=== PATIENT | male | born 1990 | race African-American/Black ===

== ENCOUNTER 2018-05-09 22:49 | Inpatient (IN) | payer SELFPAY ==
[~2018-05-09] VITALS: Ht 175.3 cm; Wt 97.7 kg
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
[2018-05-09 23:40] LABS: BASO % 0.7 %; BASO ABS # 0.06 K/uL (0-0.2); EOS % 1.4 %; EOS ABS # 0.13 K/uL (0-0.5); HEMATOCRIT 38.8 % (42-52); HEMOGLOBIN 13.2 g/dL (14.0-18.0); IG# 0.01 K/uL (0.00-0.02); LYMPH % 18.7 %; LYMPH ABS # 1.71 K/uL (1.2-3.4); MEAN CELL VOLUME 87.4 fL (80-100); MEAN CORPUSCULAR HEMOGLOBIN 29.7 pg (25-34); MEAN PLATELET VOLUME 10.8 fL (7.4-10.4); MONO % 4.1 %; MONO ABS # 0.38 K/uL (0.11-0.59); NEUT ABS # 6.87 K/uL (1.4-6.5); PLATELET COUNT 321 K/uL (130-400); RED CELL DISTRIBUTION WIDTH CV 14.1 % (11.5-14.5); RED CELL DISTRIBUTION WIDTH SD 45.2 fL (36.4-46.3); WHITE BLOOD COUNT 9.16 K/uL (4.8-10.8)
[2018-05-09 23:59] LABS: ALBUMIN 3.6 gm/dl (3.4-5.0); ALKALINE PHOSPHATASE 87 U/L (45-117); ALT/SGPT 38 U/L (12-78); AST/SGOT 33 U/L (15-37); BLOOD UREA NITROGEN 16 mg/dl (7-18); CALCIUM 8.1 mg/dl (8.5-10.1); CARBON DIOXIDE 23 mmol/L (21-32); CREATININE 1.13 mg/dl (0.60-1.40); GLUCOSE 101 mg/dl (70-99); POTASSIUM 3.6 mmol/L (3.5-5.1); SODIUM 142 mmol/L (136-145); TOTAL PROTEIN 7.5 gm/dl (6.4-8.2)
[2018-05-10] VITALS (8 sets, daily range): BP systolic 102–119; BP diastolic 55–79; PULSE 64–75; TEMP 36.3–37.1; O2SAT 95–100; Ht 175.3 cm; Wt 97.7 kg
[2018-05-10] MEDS ORDERED: ACETAMINOPHEN 325 MG TAB PO PRN (01:30)
[2018-05-10] MEDS ORDERED: NITROGLYCERIN 0.4 MG SL PER TAB CHARGE SL PRN (01:30)
[2018-05-10] MEDS ORDERED: ONDANSETRON INJ 2 MG/ML 2 ML VIAL IV PRN (01:30)
[2018-05-10] MEDS: SODIUM CHLORIDE 0.9% 1000ML 1,000 ML IV SCH ×2 (02:04→10:00)
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
[2018-05-10 07:46] LABS: BASO % 0.5 %; BASO ABS # 0.05 K/uL (0-0.2); HEMATOCRIT 36.9 % (42-52); HEMOGLOBIN 12.3 g/dL (14.0-18.0); IG# 0.01 K/uL (0.00-0.02); LYMPH % 26.8 %; LYMPH ABS # 2.68 K/uL (1.2-3.4); MEAN CELL VOLUME 88.5 fL (80-100); MEAN CORPUSCULAR HEMOGLOBIN 29.5 pg (25-34); MEAN CORPUSCULAR HGB CONC 33.3 g/dl (32-36); MEAN PLATELET VOLUME 10.8 fL (7.4-10.4); MONO % 6.5 %; MONO ABS # 0.65 K/uL (0.11-0.59); NEUT % 64.1 %; NEUT ABS # 6.42 K/uL (1.4-6.5); PLATELET COUNT 317 K/uL (130-400); RED CELL DISTRIBUTION WIDTH CV 14.5 % (11.5-14.5); RED CELL DISTRIBUTION WIDTH SD 47.1 fL (36.4-46.3); WHITE BLOOD COUNT 10.01 K/uL (4.8-10.8)
[2018-05-10 08:19] LABS: ALBUMIN 3.3 gm/dl (3.4-5.0); CALCIUM 8.1 mg/dl (8.5-10.1); CREATININE 0.98 mg/dl (0.60-1.40); POTASSIUM 3.8 mmol/L (3.5-5.1); TOTAL PROTEIN 7.2 gm/dl (6.4-8.2)
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
[2018-05-10] MEDS ORDERED: CLOZ100T PO (12:57)
[2018-05-10] MEDS ORDERED: SERTRALINE HCL 50 MG TAB PO ONE (12:58)
[2018-05-10] MEDS ORDERED: ZLF50 PO (12:58)
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
--- NOTE | 2018-05-10 19:41 | Progress Note ---
Progress Note Date of Service May 10, 2018. Progress Note Patient admitted earlier today please see H&P for further details There is a 27-year-old male with past medical history of depression suicidal ideation Admitted with intentional multiple drug overdose Patient reported to take unknown amount of Prozac NyQuil and alcohol In the ER patient was found hemodynamically stable Drowsy, wakes up to voice Per poison Control center, recommend supportive care supportive care with IV fluids telemetry monitoring for any arrhythmia QTC prolongation Suicide watch Psych eval requested Patient will need to be transferred to inpatient psych unit when clinically stable
[2018-05-10] MEDS ORDERED: CLOZAPINE 100 MG TAB PO SCH (21:00)
[2018-05-11] MEDS ORDERED: RAPID SEQUENCE INDUCTION BAG ONE (00:09)
[2018-05-11 04:15] VITALS: BP 124/65; PULSE 60; TEMP 36.8; O2SAT 99
[2018-05-11 07:08] VITALS: BP 111/70; PULSE 52; TEMP 36.5; O2SAT 99
[2018-05-11 07:08] LABS: MEAN CORPUSCULAR HGB CONC 33.2 g/dl (32-36); MEAN PLATELET VOLUME 10.9 fL (7.4-10.4); PLATELET COUNT 302 K/uL (130-400)
[2018-05-11 07:35] LABS: CALCIUM 8.4 mg/dl (8.5-10.1); CREATININE 1.1 mg/dl (0.60-1.40); POTASSIUM 3.9 mmol/L (3.5-5.1)
[2018-05-11 08:04] LABS: HEMATOCRIT 39.2 % (42-52); MEAN CELL VOLUME 89.7 fL (80-100); MEAN CORPUSCULAR HEMOGLOBIN 29.7 pg (25-34); RED CELL DISTRIBUTION WIDTH CV 14.7 % (11.5-14.5); RED CELL DISTRIBUTION WIDTH SD 48.2 fL (36.4-46.3); WHITE BLOOD COUNT 9.21 K/uL (4.8-10.8)
[2018-05-11] MEDS ORDERED: SERTRALINE HCL 50 MG TAB PO SCH (09:00)
--- NOTE | 2018-05-11 10:09 | DIAGNOSTIC IMAGING REPORT ---
CHEST 2 VIEWS ROUTINE HISTORY: 27 years-old Male cough acute cough COMPARISON: None available TECHNIQUE: PA and lateral views of the chest FINDINGS: Cardiomediastinal and hilar silhouettes are within normal limits. No pneumothorax, pleural effusion, focal airspace consolidation or overt pulmonary edema. The bones of the chest appear grossly intact. IMPRESSION: No acute process. The above report was generated using voice recognition software. It may contain grammatical, syntax or spelling errors. Electronically signed by: Blair Bragg M.D. 05/11/2018 10:07 AM Dictated Date/Time: 05/11/2018 10:07 AM
[2018-05-11 10:53] VITALS: BP 123/77; TEMP 36.8; O2SAT 98
--- NOTE | 2018-05-11 11:51 | Progress Note ---
Medicine Progress Note Date & Time of Visit: May 11, 2018 at 09:20 . Subjective Complains of headache. Occasional cough. Nausea, no vomiting. No arrhythmias, seizures. . Objective Last 8 Hrs Date Time Temp Pulse Resp B/P (MAP) Pulse Ox O2 Delivery O2 Flow Rate FiO2 05/11/18 10:53 36.8 16 123/77 (92) 98 Room Air Tent 05/11/18 08:00 Room Air 05/11/18 07:08 36.5 52 16 111/70 (84) 99 Room Air 05/11/18 04:15 36.8 60 18 124/65 (84) 99 Room Air Physical Exam: General- lying in bed, no distress Eyes- anicteric Neck- supple Lungs- few rhonchi left base Heart- RRR Abdomen- + BS, soft, nontender Extremities- no pretibial edema or calf tenderness Neuro- alert . Laboratory Results: Last 24 Hours Test 05/10/18 12:00 05/11/18 06:38 Urine Opiates Screen NEG Urine Methadone, Qualitative NEG Urine Barbiturates NEG Urine Phencyclidine (PCP) Level NEG Ur Amphetamine/Methamphetamine NEG MDMA (Ecstasy) Screen NEG Urine Benzodiazepines Screen NEG Urine Cocaine Metabolite NEG Urine Marijuana (THC) NEG White Blood Count 9.21 K/uL Red Blood Count 4.37 M/uL Hemoglobin 13.0 g/dL Hematocrit 39.2 % Mean Corpuscular Volume 89.7 fL Mean Corpuscular Hemoglobin 29.7 pg Mean Corpuscular Hemoglobin Concent 33.2 g/dl Platelet Count 302 K/uL Mean Platelet Volume 10.9 fL RDW Standard Deviation 48.2 fL RDW Coefficient of Variation 14.7 % Neutrophils % (Manual) 26.1 % Lymphocytes % (Manual) 62.6 % Monocytes % (Manual) 4.3 % Eosinophils % (Manual) 7.0 % Neutrophils # (Manual) 2.40 K/uL Total Absolute Neutrophils 2.40 K/uL Lymphocytes # (Manual) 5.77 K/uL Total Absolute Lymphocytes 5.77 K/uL Monocytes # (Manual) 0.40 K/uL Eosinophils # (Manual) 0.64 K/uL Smudge Cells PRESENT Sodium Level 141 mmol/L Potassium Level 3.9 mmol/L Chloride Level 106 mmol/L Carbon Dioxide Level 30 mmol/L Anion Gap 5.0 mmol/L Blood Urea Nitrogen 11 mg/dl Creatinine 1.10 mg/dl Est Creatinine Clear Calc Drug Dose 118.4 ml/min Estimated GFR () 107.6 Estimated GFR (Non- 92.8 BUN/Creatinine Ratio 10.1 Random Glucose 91 mg/dl Calcium Level 8.4 mg/dl Magnesium Level 2.1 mg/dl Date/Time Source Procedure Growth Status 05/11/18 04:20 Nasal MRSA DNA Surveillance Screen - Final Specimen Negative for MRSA by DNA Probe Complete Diagnostic Imaging: CXR- no infiltrates . Assessment & Plan OVERDOSE Reportedly ingested ibuprofen, DayQuil, NyQuil, rat poison, possibly fluoxetine. Monitored on Telemetry Unit. No hemodynamic instability, arrhythmias, seizures, or other complications. COUGH No fever. O2 sats 98-99% RA. Chest x-ray normal. QUESTIONABLE SEIZURE ACTIVITY Seen by Neuro. EEG unremarkable (preliminary report). Seizure disorder felt to be unlikely. DEPRESSION Psychiatry consulted. PSYCHOTIC DISORDER Continue clozapine per Psychiatry. CBC OK. DISPOSITION Medically stable for transfer to Behavioral Health Unit at [facility]. . Current Inpatient Medications: Current Inpatient Medications Medications (Trade) Dose Ordered Sig/Ayaka Route Start Time Stop Time Status Last Admin Dose Admin Acetaminophen (Tylenol Tab) 650 mg Q4H PRN PO 05/10/18 01:30 06/09/18 01:29 Ondansetron HCl (Zofran Inj) 4 mg Q6H PRN IV 05/10/18 01:30 06/09/18 01:29 Nitroglycerin (Nitrostat Tab) 0.4 mg UD PRN SL 05/10/18 01:30 06/09/18 01:29 Clozapine (Clozaril Tab) 100 mg HS PO 05/10/18 21:00 06/09/18 20:59 05/10/18 21:32 100 MG Sertraline HCl (Zoloft Tab) 50 mg DAILY PO 05/11/18 09:00 06/10/18 08:59
[2018-05-11 13:48] LABS: ALBUMIN 3.2 gm/dl (3.4-5.0); ALKALINE PHOSPHATASE 86 U/L (45-117); ALT/SGPT 33 U/L (12-78); AST/SGOT 18 U/L (15-37); TOTAL PROTEIN 7.1 gm/dl (6.4-8.2)
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
[2018-05-11 15:12] VITALS: BP 122/76; PULSE 71; TEMP 37; O2SAT 96
[2018-05-11] MEDS ORDERED: HALOPERIDOL 5 MG TAB PO STA (15:22)
--- NOTE | 2018-05-11 15:36 | Discharge Instructions ---
Discharge Instructions Date of Service May 11, 2018. Admission Reason for Admission: Drug Overdose . Discharge Discharge Diagnosis / Problem: drug overdose Discharge Goals Goal(s): Improve disease control Activity Recommendations Activity Limitations: resume your previous activity . Instructions / Follow-Up Instructions / Follow-Up Arrangements being made for transfer to [facility]. Do not take any medications other than instructed. Seek medical attention if you have thoughts about hurting yourself or others. . Current Hospital Diet Patient's current hospital diet: Regular Diet Discharge Diet Recommended Diet: Regular Diet Pending Studies Studies pending at discharge: no Medical Emergencies . Who to Call and When: Medical Emergencies: If at any time you feel your situation is an emergency, please call 911 immediately. . Non-Emergent Contact Non-Emergency issues call your: Primary Care Provider, Hospital Doctor . . "Provider Documentation" section prepared by Kingston Saleh. .
--- NOTE | 2018-05-11 15:40 | Discharge Summary ---
Discharge Summary Date of Service May 11, 2018. Discharge Summary Admission Date: May 10, 2018 at 01:25 Discharge Date: May 11, 2018 Discharge Disposition: Acute care mental health (Behavioral Health Unit [facility]) Principal Diagnosis: multidrug overdose . Secondary Diagnoses/Problems: depression psychotic disorder . Procedures: cardiac monitoring EEG . Consultations: Psychiatry Neurology . Medication Reconciliation Continued Medications: Clozapine (Clozaril) 100 Mg Tab 100 MG PO QAM Discontinued Medications: Sertraline HCl (Sertraline HCl) 50 Mg Tab 1 TAB PO DAILY, TAB Admission Information HPI (per Admitting provider): This is a 27-year-old male with past medical history significant for depression, suicidal ideation. He was brought in because of multiple drug overdose. Patient was here admitted in the hospital in April 2015 with depression. He stayed in the hospital about 10 days at that time and he was discharged back [facility] [place]. At that time, he was having suicidal ideation. He was trying to jump in before the traffic. Right now, he is living in a detention. He was found to be assaulting someone and he thought he took some Prozac, Nyquil, and alcohol, unknown time, unknown amount. The police came in. It seemed he told the police to shoot him and he told them that he will to go to jump in before the traffic. He was brought in here. Currently, he is drowsy. On calling, he opens his eyes, wakes up and goes back to sleep, not answering any other questions. Hemodynamically stable. Could not get any history from the patient as currently he is drowsy. . Physical Exam (per Admitting): GENERAL: Patient is drowsy, not in distress. VITAL SIGNS: Temperature 36.4, pulse 79, respiratory rate 18, blood pressure 106/61, oxygen 97% on room air. HEENT: Could not examine. Oral mucosa moist. NECK: No neck masses. CARDIOVASCULAR: S1, S2 heard. Regular rate and rhythm. No murmur, no gallop. RESPIRATORY: Normal AP diameter. No accessory muscle use. No wheezing, no crackles. ABDOMEN: Soft, bowel sounds present. No distention. CENTRAL NERVOUS SYSTEM: Drowsy. Wakes up on calling the name and goes back to sleep. Moves extremities. . Hospital Course OVERDOSE Reportedly ingested ibuprofen, DayQuil, NyQuil, rat poison, possibly fluoxetine. Monitored on Telemetry Unit. No hemodynamic instability, arrhythmias, seizures, or other complications. COUGH No fever. O2 sats 98-99% RA. Chest x-ray normal. QUESTIONABLE SEIZURE ACTIVITY Seen by Neuro. EEG unremarkable (preliminary report). Seizure disorder felt to be unlikely. DEPRESSION Psychiatry consulted. PSYCHOTIC DISORDER Continue clozapine per Psychiatry. CBC OK. DISPOSITION Medically stable for transfer to Behavioral Health Unit at [facility]. . Total time spent on discharge = 35 min. This includes examination of the patient, discharge planning, medication reconciliation, and communication with other providers. . Discharge Instructions Discharge Instructions Date of Service May 11, 2018. Admission Reason for Admission: Drug Overdose . Discharge Discharge Diagnosis / Problem: drug overdose Discharge Goals Goal(s): Improve disease control Activity Recommendations Activity Limitations: resume your previous activity . Instructions / Follow-Up Instructions / Follow-Up Arrangements being made for transfer to [facility]. Do not take any medications other than instructed. Seek medical attention if you have thoughts about hurting yourself or others. . Current Hospital Diet Patient's current hospital diet: Regular Diet Discharge Diet Recommended Diet: Regular Diet Pending Studies Studies pending at discharge: no Medical Emergencies . Who to Call and When: Medical Emergencies: If at any time you feel your situation is an emergency, please call 911 immediately. . Non-Emergent Contact Non-Emergency issues call your: Primary Care Provider, Hospital Doctor . . "Provider Documentation" section prepared by Kingston Saleh. . .
[2018-05-11 15:45] VITALS: BP 122/76; PULSE 71; TEMP 37; O2SAT 96
[2018-05-11] MEDS ORDERED: SERT50TA PO (16:29)
== END 2018-05-11 16:15 | DRG 918 ==
LOC: C.EDA 22:49 → C.2T 05-10 01:25 → EDBEDREQ 05-10 01:31 → ENRESERV 05-10 01:36
PROVIDERS: ADMIT Internal Medicine; ATTEND Hospitalist
DX: T43.222A Poisoning by selective serotonin reuptake inhibitors, intentional self-harm, initial encounter (principal); R45.851 Suicidal ideations; T48.5X2A Poisoning by other anti-common-cold drugs, intentional self-harm, initial encounter; T60.4X2A Toxic effect of rodenticides, intentional self-harm, initial encounter; T39.312A Poisoning by propionic acid derivatives, intentional self-harm, initial encounter; F32.9 Major depressive disorder, single episode, unspecified; F29 Unspecified psychosis not due to a substance or known physiological condition; F95.9 Tic disorder, unspecified; R05 Cough; F17.200 Nicotine dependence, unspecified, uncomplicated; Z79.899 Other long term (current) drug therapy; Z81.8 Family history of other mental and behavioral disorders; Z76.5 Malingerer [conscious simulation]

== ENCOUNTER 2019-01-18 19:37 | Inpatient (IN) ==
--- OUTSIDE RECORDS SUMMARY | 2019-01-18 19:40 | External Medical Summary | Continuity of Care Document ---
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 Start: 30-Nov-2018 Refills: 0 Prazosin HCl - 2 MG Oral Capsule; TAKE 1 CAPSULE Daily Start: 30-Nov-2018 Refills: 0 cloZAPine 200 MG Oral Tablet Refills: 0 Procedures RETIC COUNT Date: 30-Dec-2018 Immunizations Immunizations not documented Social History - Smoking Status Never smoker Plan of Treatment Planned Encounters Appointment; Duane Delgado M.D. Start: 03-Feb-2019 13:00 Request Planned Observations Planned Goals not documented Results CBC With DIFF Laboratory: [facility] Laboratory [address] [facility] [address] tel: 30-Dec-2018 10:02 WBC 7.02 K/uL Range: 4.8-10.8 K/u L RBC 4.27 {M/uL} (below low threshold) Ra nge: 4.7-6.1 M/uL HEMOGLOBIN 12.9 g/dL (below low Range: 14.0-18.0 g/dL threshold) HEMATOCRIT 37.8 % (below low Range: 42- 52 % threshold) MCV 88.5 fL Range: 80-100 fL MCH 30.2 pg Range: 25-34 pg MEAN CORPUSCULAR HGB CONC 34.1 g/dL Rang e: 32-36 g/dL RED CELL DISTRIBUTION WIDTH SD 46.5 Rang e: 36.4-46.3 fL fL (above high threshold) RED CELL DISTRIBUTION WIDTH CV 14.4 % Ra nge: 11.5-14.5 % PLATELET COUNT 330 K/uL Range: 130-400 K/uL MEAN PLATELET VOLUME 10.4 fL Range: 7.4 -10.4 fL NEUT % 39.5 % Range: % LYMPH % 44.4 % Range: % MONO % 7.7 % Range: % EOS % 7.4 % Range: % BASO % 0.9 % Range: % IG% 0.1 % Range: % Comments: IG paramet er reflects the combination of Metas, Myelos andPromyelocytes. Neutrophils (Auto) 2.77 K/uL Range: 1. 4-6.5 K/uL LYMPH ABS # 3.12 K/uL Range: 1.2-3.4 K/ uL MONO ABS # 0.54 K/uL Range: 0.11-0.59 K /uL EOS ABS # 0.52 K/uL (above high Range: 0-0.5 K/uL threshold) BASO ABS # 0.06 K/uL Range: 0-0.2 K/uL IG# 0.01 K/uL Range: 0.00-0.02 K/ uL Auto Reticulocyte Laboratory: [facility] Laboratory [address] [facility] [address] tel: 30-Dec-2018 10:02 RETIC ABSOLUTE COUNT 0.08 {10_6/uL} Rang e: 0.02-0.10 10 6/uL RETIC COUNT % 1.8 % Range: 0.5-2.0 % Iron and Transferrin Laboratory: [facility] Laboratory [address] [facility] [address] tel: 30-Dec-2018 10:02 Iron 70 {mcg/dl} Range: 35-175 mcg/d l TRANSFERRIN 249 mg/dl Range: 200-360 mg /dl % TRANSFERRIN SATURATION 20 % Range: 20 -50 % Comments: Calculated by [employer] Ferritin Laboratory: [facility] Laboratory [address] [facility] [place] [address] tel: 30-Dec-2018 10:02 FERRITIN 86.5 ng/ml Range: 8-388 ng/ml Vitamin B12 Laboratory: [facility] Laboratory [address] [facility] [address] tel: 30-Dec-2018 10:02 VITAMIN B12 795 pg/ml Range: 211-911 pg /ml Vital Signs 30-Dec-2018 8:35 Systolic 124 mm[Hg] Comments: Location: RUE; Position: Sitting Diastolic 76 mm[Hg] Comments: Location: RUE; Position: Sitting Heart Rate 76 /min Comments: Location: R Radial; Quality: Normal O2 Saturation 98 % Weight 222.375 lb Height 69 in BSA Calculated 2.16 m2 BMI Calculated 32.84 kg/m2 Respiration 16 /min Comments: Quality: N ormal Encounters Appointment; Duane Delgado M.D. 30-Dec-2018 9:00 Encounter Diagnosis: Problem not documented Appointment; Duane Delgado M.D. 30-Nov-2018 8:00 Encounter Diagnosis: Problem not documented Appointment; [id number], Nurse 30-Nov-2018 7:30 Encounter Diagnosis: Problem not documented Appointment; Duane Delgado M.D. 03-Feb-2019 13:00 Encounter Diagnosis: Problem not documented
[2019-01-18] MEDS ORDERED: SERTRALINE HCL 50 MG TABLET PO ONE (20:22)
[2019-01-18] MEDS ORDERED: cloZAPine 100 MG TAB PO STA (20:23)
[2019-01-18 20:41] LABS: Basophils # (auto) 0.04 K/uL (0-0.2); Basophils % (auto) 0.4 %; Eosinophils # (auto) 0.13 K/uL (0-0.5); Eosinophils % (auto) 1.3 %; Hematocrit (blood only) 40.1 % (42-52); Hemoglobin 13.9 g/dL (14.0-18.0); Immature Granulocytes # (auto) 0.04 K/uL (0.00-0.02); Immature Granulocytes % (auto) 0.4 %; Lymphocytes # (auto) 1.16 K/uL (1.2-3.4); Lymphocytes % (auto) 11.2 %; Mean Corpuscular Hgb Conc 34.7 g/dL (32-36); Mean Corpuscular Volume 87.7 fL (80-100); Mean Platelet Volume 10.4 fL (7.4-10.4); Monocytes # (auto) 0.75 K/uL (0.11-0.59); Monocytes % (auto) 7.2 %; Neutrophils # (auto) 8.23 K/uL (1.4-6.5); Neutrophils % (auto) 79.5 %; Platelet Count 295 K/uL (130-400); RDW Coefficient of Variation 13.9 % (11.5-14.5); RDW Standard Deviation 44.3 fL (36.4-46.3); Red Blood Count 4.57 M/uL (4.7-6.1); White Blood Count 10.35 K/uL (4.8-10.8)
[2019-01-18 20:59] LABS: Albumin Level 3.9 gm/dl (3.4-5.0); BUN Creatinine Ratio 10.1 (10-20); Calcium 9.5 mg/dl (8.5-10.1); Creatinine Clr Calc Pharmacy 81.9 ml/min; Est GFR (African American) 76.5; Potassium 4.1 mmol/L (3.5-5.1)
[2019-01-18 21:00] LABS: Acetaminophen < 2 ug/ml (10-30); Salicylate < 1.7 mg/dl (2.8-20)
[2019-01-18 21:10] LABS: Bilirubin,Total 0.4 mg/dl (0.2-1); Globulin 3.9 gm/dl (2.5-4.0); Total Protein 7.8 gm/dl (6.4-8.2)
[2019-01-18 21:28] LABS: Appearance Urine Cloudy (Clear); Bacteria Urine Automated Negative (Negative); Bilirubin Urine Negative (Negative); Blood Urine Trace (Negative); Color Urine Yellow; Epithelial Cell Urine Auto >30 /lpf (0-5); Glucose Urine UA Negative (Negative); Ketones Urine 1+ (Negative); Leukocyte Esterase Urine Negative (Negative); Nitrite Urine Negative (Negative); Protein Urine 2+ (Negative); RBC Urine Automated 0-4 /hpf (0-4); Urobilinogen Urine Negative (Negative)
[2019-01-18 21:45] LABS: Amphetamines+Metham, Urine Neg (Neg); Barbiturates, Urine Neg (Neg); Benzodiazepine, Urine Neg (Neg); Cocaine, Urine Neg (Neg); MDMA (Ecstacy), Urine Neg (Neg); Methadone, Urine Neg (Neg); Opiate, Urine Neg (Neg); Phencyclidine, Urine Neg (Neg)
[2019-01-18 21:46] LABS: Mucus Urine Present (None Prsent); Sperm Urine Present (None Prsent)
[2019-01-18] MEDS ORDERED: SODIUM CHLORIDE 0.9% 1000ML 1,000 ML IV ONE (22:48)
--- NOTE | 2019-01-18 23:04 | CT Scan Report ---
CT OF THE HEAD WITHOUT CONTRAST CLINICAL HISTORY: Head injury. COMPARISON STUDY: Head CT October 04, 2015. CT DOSE: 614.27 mGy.cm TECHNIQUE: Helical axial images of the head were obtained without IV contrast. Automated exposure con trol was utilized for the study. A dose lowering technique was utilized adhering to the principles o f ALARA. FINDINGS: No acute intracranial hemorrhage, midline shift or mass effect is present. Ventricular syst em is normal. The basilar cisterns are patent. There are no extra-axial collections. Ward-white diffe rentiation is maintained. There is no calvarial fracture. IMPRESSION: 1. No acute intracranial findings. 2. No calvarial fracture. Electronically signed by: Jayson Lima M.D. 01/18/2019 11:02 PM
--- NOTE | 2019-01-19 02:35 | Emergency Department Note ---
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 Per the nursing staff, the patient decided to stop taking his psychiatric medication. The nurses note that he had an episode of a seizure AEROSPACE TECHNICIAN. The nursing staff states that he was hearing voices AEROSPACE TECHNICIAN. Nursing notes that he denies any HI and SI. The nursing staff states that he was given Ativan AEROSPACE TECHNICIAN. HPI and ROS limited secondary to patient's uncooperative state. Home Medications Home Medications Medication Instructions Recorded Confirmed Type clozapine 200 mg PO HS #30 tab 06/07/18 01/18/19 Rx sertraline 75 mg PO QAM #30 tab 06/07/18 01/18/19 Rx Allergies Allergy/AdvReac Type Severity Reaction Status Date / Time No Known Allergies Allergy Unverified 05/14/18 10:35 Past Med/Surg History Medical History Eosinophilia Depression (Acute) Suicide attempt Tic Metabolic encephalopathy Schizophrenia Social History Communication Ability: unrespons Beliefs That Will Affect Care: None Current Living Situation: Other Feels Safe at Home: No Smoking Status: Never smoker Cigarettes Per Day: Patient unresponsive at this time Smoking End Date: Patient unresponsive at this time Hx Alcohol Use: No (Patient unresponsive at this time) Hx Substance Use: No (Patient unresponsive at this time) Review of Systems See HPI for pertinent positives & negatives. Other (ROS limited secondary to patient's uncooperative state.) Physical Exam Vital Signs Vital Signs - 24 hr 01/19/19 00:22 01/19/19 02:00 01/19/19 03:24 Temperature Temperature Source End-Tidal CO2 Pulse Rate Pulse Rate [Right Finger] 100 H 95 H 100 H Pulse Rate from SpO2 Sensor Respiratory Rate 20 Respiratory Effort / Characteristics Non-Labored Spontaneous Respiratory Depth Normal Respiratory Pattern Regular Blood Pressure Blood Pressure [Right Arm] 102/70 125/74 123/73 Blood Pressure Mean Blood Pressure Mean [Right Arm] 80 91 89 Blood Pressure Position [Right Arm] Lying Pulse Oximetry 100 98 97 Oxygen Delivery Method Room Air Room Air Room Air 01/19/19 04:07 01/19/19 04:11 01/19/19 04:30 Temperature 37.6 C H Temperature Source Oral End-Tidal CO2 Pulse Rate Pulse Rate [Right Finger] 100 H 100 H Pulse Rate from SpO2 Sensor Respiratory Rate 24 22 Respiratory Effort / Characteristics Non-Labored Spontaneous Non-Labored Spontaneous Respiratory Depth Normal Normal Respiratory Pattern Regular Blood Pressure Blood Pressure [Right Arm] 109/61 111/66 Blood Pressure Mean Blood Pressure Mean [Right Arm] 77 81 Blood Pressure Position [Right Arm] Sitting Pulse Oximetry 96 96 Oxygen Delivery Method Room Air Room Air 01/19/19 05:01 01/19/19 05:30 01/19/19 06:00 Temperature Temperature Source End-Tidal CO2 Pulse Rate Pulse Rate [Right Finger] 95 H 91 H 96 H Pulse Rate from SpO2 Sensor Respiratory Rate 20 20 20 Respiratory Effort / Characteristics Non-Labored Spontaneous Non-Labored Spontaneous Non-Labored Spontaneous Respiratory Depth Normal Normal Normal Respiratory Pattern Regular Regular Regular Blood Pressure Blood Pressure [Right Arm] 110/68 107/67 118/72 Blood Pressure Mean Blood Pressure Mean [Right Arm] 82 80 87 Blood Pressure Position [Right Arm] Pulse Oximetry 95 95 96 Oxygen Delivery Method Room Air Room Air Room Air 01/19/19 06:51 01/19/19 07:41 01/19/19 08:49 Temperature 37.1 C 37.8 C H Temperature Source Oral Axillary End-Tidal CO2 Pulse Rate Pulse Rate [Right Finger] 89 89 Pulse Rate from SpO2 Sensor Respiratory Rate 18 16 Respiratory Effort / Characteristics Respiratory Depth Respiratory Pattern Blood Pressure Blood Pressure [Right Arm] 103/68 116/70 Blood Pressure Mean Blood Pressure Mean [Right Arm] 79 85 Blood Pressure Position [Right Arm] Lying Pulse Oximetry 97 96 Oxygen Delivery Method Room Air Room Air 01/19/19 09:31 01/19/19 09:45 01/19/19 09:58 Temperature 36.9 C Temperature Source End-Tidal CO2 Pulse Rate 95 H 75 92 H Pulse Rate [Right Finger] Pulse Rate from SpO2 Sensor 97 H 79 Respiratory Rate 15 16 12 Respiratory Effort / Characteristics Respiratory Depth Respiratory Pattern Blood Pressure 147/83 H 115/68 106/70 Blood Pressure [Right Arm] Blood Pressure Mean 104 83 82 Blood Pressure Mean [Right Arm] Blood Pressure Position [Right Arm] Pulse Oximetry 99 Oxygen Delivery Method 01/19/19 10:00 01/19/19 10:02 01/19/19 10:04 Temperature Temperature Source End-Tidal CO2 Pulse Rate 92 H 92 H 87 Pulse Rate [Right Finger] Pulse Rate from SpO2 Sensor Respiratory Rate 24 20 19 Respiratory Effort / Characteristics Respiratory Depth Respiratory Pattern Blood Pressure 97/67 L 96/59 L 102/71 Blood Pressure [Right Arm] Blood Pressure Mean 77 71 81 Blood Pressure Mean [Right Arm] Blood Pressure Position [Right Arm] Pulse Oximetry Oxygen Delivery Method 01/19/19 10:06 01/19/19 10:08 01/19/19 10:10 Temperature Temperature Source End-Tidal CO2 Pulse Rate 87 90 87 Pulse Rate [Right Finger] Pulse Rate from SpO2 Sensor Respiratory Rate 18 18 18 Respiratory Effort / Characteristics Respiratory Depth Respiratory Pattern Blood Pressure 103/66 97/64 L 110/66 Blood Pressure [Right Arm] Blood Pressure Mean 78 75 80 Blood Pressure Mean [Right Arm] Blood Pressure Position [Right Arm] Pulse Oximetry Oxygen Delivery Method 01/19/19 10:12 01/19/19 10:14 01/19/19 10:19 Temperature Temperature Source End-Tidal CO2 Pulse Rate 78 85 84 Pulse Rate [Right Finger] Pulse Rate from SpO2 Sensor 84 Respiratory Rate 18 16 17 Respiratory Effort / Characteristics Respiratory Depth Respiratory Pattern Blood Pressure 105/63 132/79 124/65 Blood Pressure [Right Arm] Blood Pressure Mean 77 96 84 Blood Pressure Mean [Right Arm] Blood Pressure Position [Right Arm] Pulse Oximetry 96 Oxygen Delivery Method 01/19/19 10:30 01/19/19 10:36 01/19/19 11:00 Temperature Temperature Source End-Tidal CO2 Pulse Rate 82 86 89 Pulse Rate [Right Finger] Pulse Rate from SpO2 Sensor 80 89 Respiratory Rate 16 14 17 Respiratory Effort / Characteristics Respiratory Depth Respiratory Pattern Blood Pressure 135/70 108/61 113/68 Blood Pressure [Right Arm] Blood Pressure Mean 91 76 83 Blood Pressure Mean [Right Arm] Blood Pressure Position [Right Arm] Pulse Oximetry 96 96 98 Oxygen Delivery Method Room Air Room Air 01/19/19 11:30 01/19/19 12:00 01/19/19 13:00 Temperature 37 C Temperature Source End-Tidal CO2 37 41 Pulse Rate 89 80 79 Pulse Rate [Right Finger] Pulse Rate from SpO2 Sensor 86 78 78 Respiratory Rate 16 16 Respiratory Effort / Characteristics Respiratory Depth Respiratory Pattern Blood Pressure 114/72 119/75 113/71 Blood Pressure [Right Arm] Blood Pressure Mean 86 89 85 Blood Pressure Mean [Right Arm] Blood Pressure Position [Right Arm] Pulse Oximetry 98 100 97 Oxygen Delivery Method Room Air 01/19/19 13:11 01/19/19 13:33 01/19/19 13:35 Temperature Temperature Source End-Tidal CO2 38 Pulse Rate 36 L 131 H 125 H Pulse Rate [Right Finger] Pulse Rate from SpO2 Sensor 82 126 H 125 H Respiratory Rate 16 Respiratory Effort / Characteristics Respiratory Depth Respiratory Pattern Blood Pressure 124/85 127/99 Blood Pressure [Right Arm] Blood Pressure Mean 98 108 Blood Pressure Mean [Right Arm] Blood Pressure Position [Right Arm] Pulse Oximetry 99 99 99 Oxygen Delivery Method 01/19/19 13:40 01/19/19 14:00 01/19/19 15:00 Temperature 36.8 C Temperature Source End-Tidal CO2 40 41 Pulse Rate 95 H 83 87 Pulse Rate [Right Finger] Pulse Rate from SpO2 Sensor 95 H 85 Respiratory Rate Respiratory Effort / Characteristics Respiratory Depth Respiratory Pattern Blood Pressure 138/87 120/73 120/68 Blood Pressure [Right Arm] Blood Pressure Mean 104 88 85 Blood Pressure Mean [Right Arm] Blood Pressure Position [Right Arm] Pulse Oximetry 97 98 97 Oxygen Delivery Method Room Air 01/19/19 16:00 01/19/19 17:00 01/19/19 18:00 Temperature Temperature Source End-Tidal CO2 33 38 35 Pulse Rate 81 77 78 Pulse Rate [Right Finger] Pulse Rate from SpO2 Sensor Respiratory Rate 18 17 Respiratory Effort / Characteristics Respiratory Depth Respiratory Pattern Blood Pressure 113/64 120/65 121/63 Blood Pressure [Right Arm] Blood Pressure Mean 80 83 82 Blood Pressure Mean [Right Arm] Blood Pressure Position [Right Arm] Pulse Oximetry 95 98 97 Oxygen Delivery Method Room Air Room Air 01/19/19 19:00 01/19/19 20:00 01/19/19 21:00 Temperature 36.5 C Temperature Source End-Tidal CO2 40 39 34 Pulse Rate 86 79 130 H Pulse Rate [Right Finger] Pulse Rate from SpO2 Sensor Respiratory Rate 18 20 Respiratory Effort / Characteristics Respiratory Depth Respiratory Pattern Blood Pressure 117/70 128/74 123/68 Blood Pressure [Right Arm] Blood Pressure Mean 85 92 86 Blood Pressure Mean [Right Arm] Blood Pressure Position [Right Arm] Pulse Oximetry 97 99 99 Oxygen Delivery Method Room Air 01/19/19 22:00 01/19/19 22:59 Temperature Temperature Source End-Tidal CO2 40 Pulse Rate 85 77 Pulse Rate [Right Finger] Pulse Rate from SpO2 Sensor Respiratory Rate Respiratory Effort / Characteristics Respiratory Depth Respiratory Pattern Blood Pressure 118/64 Blood Pressure [Right Arm] Blood Pressure Mean 82 Blood Pressure Mean [Right Arm] Blood Pressure Position [Right Arm] Pulse Oximetry 94 Oxygen Delivery Method Room Air GENERAL: Awake, alert, well-appearing, in no acute distress HENT: Normocephalic, atraumatic. Oropharynx unremarkable. EYES: Normal conjunctiva. Sclera non-icteric. NECK: Supple. No nuchal rigidity. FROM. No JVD. RESPIRATORY: Clear to auscultation. CARDIAC: Regular rate, normal rhythm. Extremities warm and well perfused. Pulses equal. ABDOMEN: Soft, non-distended. No tenderness to palpation. No rebound or guarding. No masses. RECTAL: Deferred. MUSCULOSKELETAL: Chest examination reveals no tenderness. The back is symmetrical on inspection without obvious abnormality. There is no CVA tenderness to palpation. No joint edema. LOWER EXTREMITIES: Calves are equal size bilaterally and non-tender. No edema. No discoloration. NEURO: Normal sensorium. No sensory or motor deficits noted. SKIN: No rash or jaundice noted. Course 2018: The patient was evaluated in room A06. A complete history and physical exam was performed. Administered Medications Clozapine (Clozapine) 200 mg PO HS LINO; Protocol Stop: 02/18/19 20:59 Last Admin: 01/19/19 20:44 Dose: Not Given Documented by: [id number] Ceftriaxone Sodium 2,000 mg/ (Dextrose) 70 mls @ 100 mls/hr IV Q24H LINO; Pr otocol Stop: 01/29/19 08:44 Last Infusion: 01/19/19 11:54 Dose: 0 mls/hr Documented by: [id number] Admin: 01/19/19 11:18 Dose: 100 mls/hr Documented by: [id number] Parenteral Electrolytes (Normosol-R) 1,000 mls @ 125 mls/hr IV .Q8H LINO Stop: 02/18/19 20:14 Last Admin: 01/19/19 20:45 Dose: 125 mls/hr Documented by: [id number] Sertraline HCl (Zoloft) 75 mg PO QAM [facility] Stop: 02/18/19 08:59 Last Admin: 01/19/19 07:27 Dose: Not Given Documented by: [id number] Discontinued Medications Clozapine (Clozapine) 200 mg PO NOW STA Stop: 01/18/19 20:24 Last Admin: 01/18/19 21:08 Dose: 200 mg Documented by: [id number] Haloperidol Lactate (Haldol) Confirm Administered Dose 10 mg .ROUTE .STK-MED ONE Stop: 01/19/19 13:34 Last Admin: 01/19/19 13:42 Dose: Not Given Documented by: [id number] Haloperidol Lactate (Haldol) 10 mg IV NOW STA Stop: 01/19/19 13:35 Last Admin: 01/19/19 13:51 Dose: 10 mg Documented by: [id number] Sodium Chloride (Nss 1000ml) 1,000 mls @ 999 mls/hr IV .Q1H1M ONE Stop: 01/18/19 23:48 Last Infusion: 01/19/19 00:36 Dose: 0 mls/hr Documented by: [id number] Admin: 01/18/19 23:02 Dose: 999 mls/hr Documented by: [id number] Lactated Ringer's (Lr) 1,000 mls @ 125 mls/hr IV .Q8H [facility] Stop: 01/19/19 15:14 Last Infusion: 01/19/19 15:09 Dose: 0 mls/hr Documented by: [id number] Infusion: 01/19/19 10:35 Dose: 125 mls/hr Documented by: [id number] Infusion: 01/19/19 10:26 Dose: 0 mls/hr Documented by: [id number] Admin: 01/19/19 07:35 Dose: 125 mls/hr Documented by: [id number] Vancomycin HCl 2,000 mg/ (Sodium Chloride) 540 mls @ 200 mls/hr IV NOW ONE; Protocol Stop: 01/19/19 11:41 Last Admin: 01/19/19 10:27 Dose: Not Given Documented by: [id number] Parenteral Electrolytes (Normosol-R) 1,000 mls @ 999 mls/hr IV .Q1H1M ONE Stop: 01/19/19 10:04 Last Infusion: 01/19/19 10:26 Dose: 0 mls/hr Documented by: Admin: 01/19/19 09:25 Dose: 999 mls/hr Documented by: Dexamethasone Sodium Phosphate (10 mg/ Syringe) 2.5 mls @ 1 mls/min IV NOW ONE Stop: 01/19/19 09:32 Last Admin: 01/19/19 10:28 Dose: 1 mls/min Documented by: Azithromycin 500 mg/ Dextrose 255 mls @ 127.5 mls/hr IV NOW ONE Stop: 01/19/19 12:29 Last Infusion: 01/19/19 12:17 Dose: 0 mls/hr Documented by: Admin: 01/19/19 10:29 Dose: 127.5 mls/hr Documented by: Lidocaine HCl (Xylocaine 1% (Local)) Confirm Administered Dose 20 ml .ROUTE .STK-MED ONE Stop: 01/19/19 09:56 Last Admin: 01/19/19 09:55 Dose: 10 ml Documented by: Midazolam HCl (Versed) 2 mg IV NOW STA Stop: 01/19/19 09:16 Last Admin: 01/19/19 10:25 Dose: 2 mg Documented by: Midazolam HCl (Versed) Confirm Administered Dose 2 mg .ROUTE .STK-MED ONE Stop: 01/19/19 09:17 Last Admin: 01/19/19 10:25 Dose: Not Given Documented by: Midazolam HCl (Versed) 2 mg IV NOW STA Stop: 01/19/19 10:24 Last Admin: 01/19/19 10:33 Dose: 2 mg Documented by: Naloxone HCl (Narcan) Confirm Administered Dose 0.4 mg .ROUTE .STK-MED ONE Stop: 01/19/19 03:37 Last Admin: 01/19/19 03:46 Dose: 0.8 mg Documented by: [id number] Naloxone HCl (Narcan) Confirm Administered Dose 1.2 mg .ROUTE .STK-MED ONE Stop: 01/19/19 03:39 Last Admin: 01/19/19 03:46 Dose: 1.2 mg Documented by: [id number] Sertraline HCl (Zoloft) 75 mg PO NOW ONE Stop: 01/18/19 20:23 Last Admin: 01/18/19 21:08 Dose: 75 mg Documented by: [id number] Medical Decision Making Differential Diagnosis The differential diagnosis includes: psychiatric disorder, infection, hypoglycemia, electrolyte abnormalities, cardiac sources, intracerebral event, toxicological process, neurologic disorder, as well as others were entertained. Medical Records Attestation: I reviewed the patient's medical records. Home Medications Current Medication List: was personally reviewed by me Laboratory Data Attestation: I reviewed the patient's lab results. Result diagrams: 01/19/19 03:50 01/19/19 03:50 Lab Results 01/18/19 01/18/19 01/18/19 Range/Units 20:30 20:30 20:30 WBC 10.35 (4.8-10.8) K/uL RBC 4.57 L (4.7-6.1) M/uL Hgb 13.9 L (14.0-18.0) g/dL Hct 40.1 L (42-52) % MCV 87.7 (80-100) fL MCH 30.4 (25-34) pg MCHC 34.7 (32-36) g/dL RDW Std Deviation 44.3 (36.4-46.3) fL RDW Coeff of Tawanna 13.9 (11.5-14.5) % Plt Count 295 (130-400) K/uL MPV 10.4 (7.4-10.4) fL Immature Gran % (Auto) 0.4 % Neut % (Auto) 79.5 % Lymph % (Auto) 11.2 % [place] % (Auto) 7.2 % Eos % (Auto) 1.3 % Baso % (Auto) 0.4 % Immature Gran # (Auto) 0.04 H (0.00-0.02) K/uL Neut # (Auto) 8.23 H (1.4-6.5) K/uL Lymph # (Auto) 1.16 L (1.2-3.4) K/uL [place] # (Auto) 0.75 H (0.11-0.59) K/uL Eos # (Auto) 0.13 (0-0.5) K/uL Baso # (Auto) 0.04 (0-0.2) K/uL PT (9.0-12.0) Seconds INR (0.9-1.1) VBG pH (7.36-7.41) VBG pCO2 (38-50) mmHg VBG pO2 mmHg VBG HCO3 mmol/L VBG O2 Saturation % VBG Base Excess mEq/L Barometric Pressure mm/Hg Sodium 141 (136-145) mmol/L Potassium 4.1 (3.5-5.1) mmol/L Chloride 108 H (98-107) mmol/L Carbon Dioxide 25 (21-32) mmol/L Anion Gap 8.0 (3-11) BUN 15 (7-18) mg/dl Creatinine 1.45 H (0.6-1.4) mg/dl Est Cr Clr Drug Dosing 81.9 ml/min Est GFR ( Amer) 76.5 Est GFR (Non-Af Amer) 66.0 BUN/Creatinine Ratio 10.1 (10-20) Glucose 97 (70-99) mg/dl POC Glucose (70-99) Osmolality (280-300) mOsm/kg Lactate (0.4-2.0) mmol/L Calcium 9.5 (8.5-10.1) mg/dl Phosphorus (2.5-4.9) mg/dl Magnesium (1.8-2.4) mg/dl Total Bilirubin 0.4 (0.2-1) mg/dl AST 28 (15-37) U/L ALT 35 (12-78) U/L Alkaline Phosphatase 80 (45-117) U/L Ammonia (11-32) umol/L Total Protein 7.8 (6.4-8.2) gm/dl Albumin 3.9 (3.4-5.0) gm/dl Globulin 3.9 (2.5-4.0) gm/dl Albumin/Globulin Ratio 1.0 (0.9-2) Procalcitonin (0-0.5) ng/ml TSH 1.400 (0.300-4.500) uIu/ml Free T4 (0.8-1.6) ng/dl Free T3 (2.3-4.2) pg/ml Urine Color Urine Appearance (Clear) Urine pH (4.5-7.5) Ur Specific [place] (1.000-1.030) Urine Protein (Negative) Urine Glucose (UA) (Negative) Urine Ketones (Negative) Urine Blood (Negative) Urine Nitrite (Negative) Urine Bilirubin (Negative) Urine Urobilinogen (Negative) Ur Leukocyte Esterase (Negative) Urine WBC (Auto) (0-5) /hpf Urine RBC (Auto) (0-4) /hpf U Hyaline Cast (Auto) (0-5) /lpf U Epithel Cells (Auto) (0-5) /lpf Urine Bacteria (Auto) (Negative) Ur Renal Epithelial Cell Granular Casts (0) /lpf Urine Mucus (None Prsent) Urine Sperm (None Prsent) CSF Appearance CSF Color Xanthrochromic CSF WBC (0-5) /uL CSF RBC (0-) /uL CSF Cell Count Tube # CSF Chemistry Tube # CSF Glucose (40-70) mg/dl CSF Total Protein Nasal Screen MRSA (PCR) (Negative) Salicylates < 1.7 L (2.8-20) mg/dl Urine Opiates Screen (Neg) Ur Methadone, Qual (Neg) Acetaminophen < 2 L (10-30) ug/ml Urine Barbiturates (Neg) Ur Phencyclidine (PCP) (Neg) U Amphetamin/Meth Scrn (Neg) MDMA (Ecstasy) Screen (Neg) U Benzodiazepines Scrn (Neg) Ur Cocaine Metabolite (Neg) U Marijuana (THC) Screen (Neg) Ethyl Alcohol mg/dL (0-3) mg/dl HIV 1&2 Ab/P24 Ag 4thGn (Neg) Influenza Type A (PCR) (Neg) Influenza Type B (PCR) (Neg) 01/18/19 01/18/19 01/18/19 Range/Units 20:30 21:14 21:14 WBC (4.8-10.8) K/uL RBC (4.7-6.1) M/uL Hgb (14.0-18.0) g/dL Hct (42-52) % MCV (80-100) fL MCH (25-34) pg MCHC (32-36) g/dL RDW Std Deviation (36.4-46.3) fL RDW Coeff of Tawanna (11.5-14.5) % Plt Count (130-400) K/uL MPV (7.4-10.4) fL Immature Gran % (Auto) % Neut % (Auto) % Lymph % (Auto) % [place] % (Auto) % Eos % (Auto) % Baso % (Auto) % Immature Gran # (Auto) (0.00-0.02) K/uL Neut # (Auto) (1.4-6.5) K/uL Lymph # (Auto) (1.2-3.4) K/uL [place] # (Auto) (0.11-0.59) K/uL Eos # (Auto) (0-0.5) K/uL Baso # (Auto) (0-0.2) K/uL PT (9.0-12.0) Seconds INR (0.9-1.1) VBG pH (7.36-7.41) VBG pCO2 (38-50) mmHg VBG pO2 mmHg VBG HCO3 mmol/L VBG O2 Saturation % VBG Base Excess mEq/L Barometric Pressure mm/Hg Sodium (136-145) mmol/L Potassium (3.5-5.1) mmol/L Chloride (98-107) mmol/L Carbon Dioxide (21-32) mmol/L Anion Gap (3-11) BUN (7-18) mg/dl Creatinine (0.6-1.4) mg/dl Est Cr Clr Drug Dosing ml/min Est GFR ( Amer) Est GFR (Non-Af Amer) BUN/Creatinine Ratio (10-20) Glucose (70-99) mg/dl POC Glucose (70-99) Osmolality (280-300) mOsm/kg Lactate (0.4-2.0) mmol/L Calcium (8.5-10.1) mg/dl Phosphorus (2.5-4.9) mg/dl Magnesium (1.8-2.4) mg/dl Total Bilirubin (0.2-1) mg/dl AST (15-37) U/L ALT (12-78) U/L Alkaline Phosphatase (45-117) U/L Ammonia (11-32) umol/L Total Protein (6.4-8.2) gm/dl Albumin (3.4-5.0) gm/dl Globulin (2.5-4.0) gm/dl Albumin/Globulin Ratio (0.9-2) Procalcitonin (0-0.5) ng/ml TSH (0.300-4.500) uIu/ml Free T4 (0.8-1.6) ng/dl Free T3 (2.3-4.2) pg/ml Urine Color Yellow Urine Appearance Cloudy A (Clear) Urine pH 6.0 (4.5-7.5) Ur Specific [place] 1.030 (1.000-1.030) Urine Protein 2+ H (Negative) Urine Glucose (UA) Negative (Negative) Urine Ketones 1+ H (Negative) Urine Blood Trace H (Negative) Urine Nitrite Negative (Negative) Urine Bilirubin Negative (Negative) Urine Urobilinogen Negative (Negative) Ur Leukocyte Esterase Negative (Negative) Urine WBC (Auto) 10-30 H (0-5) /hpf Urine RBC (Auto) 0-4 (0-4) /hpf U Hyaline Cast (Auto) 10-30 H (0-5) /lpf U Epithel Cells (Auto) >30 H (0-5) /lpf Urine Bacteria (Auto) Negative (Negative) Ur Renal Epithelial Cell Not Reportable Granular Casts 1-5 H (0) /lpf Urine Mucus Present A (None Prsent) Urine Sperm Present A (None Prsent) CSF Appearance CSF Color Xanthrochromic CSF WBC (0-5) /uL CSF RBC (0-) /uL CSF Cell Count Tube # CSF Chemistry Tube # CSF Glucose (40-70) mg/dl CSF Total Protein Nasal Screen MRSA (PCR) (Negative) Salicylates (2.8-20) mg/dl Urine Opiates Screen Neg (Neg) Ur Methadone, Qual Neg (Neg) Acetaminophen (10-30) ug/ml Urine Barbiturates Neg (Neg) Ur Phencyclidine (PCP) Neg (Neg) U Amphetamin/Meth Scrn Neg (Neg) MDMA (Ecstasy) Screen Neg (Neg) U Benzodiazepines Scrn Neg (Neg) Ur Cocaine Metabolite Neg (Neg) U Marijuana (THC) Screen Neg (Neg) Ethyl Alcohol mg/dL < 3.0 (0-3) mg/dl HIV 1&2 Ab/P24 Ag 4thGn (Neg) Influenza Type A (PCR) (Neg) Influenza Type B (PCR) (Neg) 01/19/19 01/19/19 01/19/19 Range/Units 03:36 03:50 03:50 WBC 15.07 H (4.8-10.8) K/uL RBC 4.66 L (4.7-6.1) M/uL Hgb 14.1 (14.0-18.0) g/dL Hct 41.1 L (42-52) % MCV 88.2 (80-100) fL MCH 30.3 (25-34) pg MCHC 34.3 (32-36) g/dL RDW Std Deviation 45.7 (36.4-46.3) fL RDW Coeff of Tawanna 14.1 (11.5-14.5) % Plt Count 298 (130-400) K/uL MPV 10.7 H (7.4-10.4) fL Immature Gran % (Auto) 0.2 % Neut % (Auto) 92.5 % Lymph % (Auto) 3.3 % [place] % (Auto) 3.9 % Eos % (Auto) 0.0 % Baso % (Auto) 0.1 % Immature Gran # (Auto) 0.03 H (0.00-0.02) K/uL Neut # (Auto) 13.94 H (1.4-6.5) K/uL Lymph # (Auto) 0.50 L (1.2-3.4) K/uL [place] # (Auto) 0.59 (0.11-0.59) K/uL Eos # (Auto) 0.00 (0-0.5) K/uL Baso # (Auto) 0.01 (0-0.2) K/uL PT (9.0-12.0) Seconds INR (0.9-1.1) VBG pH (7.36-7.41) VBG pCO2 (38-50) mmHg VBG pO2 mmHg VBG HCO3 mmol/L VBG O2 Saturation % VBG Base Excess mEq/L Barometric Pressure mm/Hg Sodium 140 (136-145) mmol/L Potassium 3.7 (3.5-5.1) mmol/L Chloride 105 (98-107) mmol/L Carbon Dioxide 26 (21-32) mmol/L Anion Gap 9.0 (3-11) BUN 13 (7-18) mg/dl Creatinine 1.34 (0.6-1.4) mg/dl Est Cr Clr Drug Dosing 88.7 ml/min Est GFR ( Amer) 84.1 Est GFR (Non-Af Amer) 72.6 BUN/Creatinine Ratio 10.0 (10-20) Glucose 118 H (70-99) mg/dl POC Glucose 105 H (70-99) Osmolality (280-300) mOsm/kg Lactate (0.4-2.0) mmol/L Calcium 8.7 (8.5-10.1) mg/dl Phosphorus (2.5-4.9) mg/dl Magnesium (1.8-2.4) mg/dl Total Bilirubin 0.4 (0.2-1) mg/dl AST 34 (15-37) U/L ALT 38 (12-78) U/L Alkaline Phosphatase 84 (45-117) U/L Ammonia (11-32) umol/L Total Protein 8.2 (6.4-8.2) gm/dl Albumin 4.0 (3.4-5.0) gm/dl Globulin 4.2 H (2.5-4.0) gm/dl Albumin/Globulin Ratio 1.0 (0.9-2) Procalcitonin (0-0.5) ng/ml TSH 0.335 (0.300-4.500) uIu/ml Free T4 (0.8-1.6) ng/dl Free T3 (2.3-4.2) pg/ml Urine Color Urine Appearance (Clear) Urine pH (4.5-7.5) Ur Specific [place] (1.000-1.030) Urine Protein (Negative) Urine Glucose (UA) (Negative) Urine Ketones (Negative) Urine Blood (Negative) Urine Nitrite (Negative) Urine Bilirubin (Negative) Urine Urobilinogen (Negative) Ur Leukocyte Esterase (Negative) Urine WBC (Auto) (0-5) /hpf Urine RBC (Auto) (0-4) /hpf U Hyaline Cast (Auto) (0-5) /lpf U Epithel Cells (Auto) (0-5) /lpf Urine Bacteria (Auto) (Negative) Ur Renal Epithelial Cell Granular Casts (0) /lpf Urine Mucus (None Prsent) Urine Sperm (None Prsent) CSF Appearance CSF Color Xanthrochromic CSF WBC (0-5) /uL CSF RBC (0-) /uL CSF Cell Count Tube # CSF Chemistry Tube # CSF Glucose (40-70) mg/dl CSF Total Protein Nasal Screen MRSA (PCR) (Negative) Salicylates (2.8-20) mg/dl Urine Opiates Screen (Neg) Ur Methadone, Qual (Neg) Acetaminophen (10-30) ug/ml Urine Barbiturates (Neg) Ur Phencyclidine (PCP) (Neg) U Amphetamin/Meth Scrn (Neg) MDMA (Ecstasy) Screen (Neg) U Benzodiazepines Scrn (Neg) Ur Cocaine Metabolite (Neg) U Marijuana (THC) Screen (Neg) Ethyl Alcohol mg/dL (0-3) mg/dl HIV 1&2 Ab/P24 Ag 4thGn (Neg) Influenza Type A (PCR) (Neg) Influenza Type B (PCR) (Neg) 01/19/19 01/19/19 01/19/19 Range/Units 03:50 08:15 08:28 WBC (4.8-10.8) K/uL RBC (4.7-6.1) M/uL Hgb (14.0-18.0) g/dL Hct (42-52) % MCV (80-100) fL MCH (25-34) pg MCHC (32-36) g/dL RDW Std Deviation (36.4-46.3) fL RDW Coeff of Tawanna (11.5-14.5) % Plt Count (130-400) K/uL MPV (7.4-10.4) fL Immature Gran % (Auto) % Neut % (Auto) % Lymph % (Auto) % [place] % (Auto) % Eos % (Auto) % Baso % (Auto) % Immature Gran # (Auto) (0.00-0.02) K/uL Neut # (Auto) (1.4-6.5) K/uL Lymph # (Auto) (1.2-3.4) K/uL Navarro # (Auto) (0.11-0.59) K/uL Eos # (Auto) (0-0.5) K/uL Baso # (Auto) (0-0.2) K/uL PT (9.0-12.0) Seconds INR (0.9-1.1) VBG pH 7.35 L (7.36-7.41) VBG pCO2 44 (38-50) mmHg VBG pO2 49 mmHg VBG HCO3 24 mmol/L VBG O2 Saturation 82.0 % VBG Base Excess -2.1 mEq/L Barometric Pressure 737.9 mm/Hg Sodium (136-145) mmol/L Potassium (3.5-5.1) mmol/L Chloride (98-107) mmol/L Carbon Dioxide (21-32) mmol/L Anion Gap (3-11) BUN (7-18) mg/dl Creatinine (0.6-1.4) mg/dl Est Cr Clr Drug Dosing ml/min Est GFR ( Amer) Est GFR (Non-Af Amer) BUN/Creatinine Ratio (10-20) Glucose (70-99) mg/dl POC Glucose (70-99) Osmolality (280-300) mOsm/kg Lactate 0.6 (0.4-2.0) mmol/L Calcium (8.5-10.1) mg/dl Phosphorus (2.5-4.9) mg/dl Magnesium (1.8-2.4) mg/dl Total Bilirubin (0.2-1) mg/dl AST (15-37) U/L ALT (12-78) U/L Alkaline Phosphatase (45-117) U/L Ammonia (11-32) umol/L Total Protein (6.4-8.2) gm/dl Albumin (3.4-5.0) gm/dl Globulin (2.5-4.0) gm/dl Albumin/Globulin Ratio (0.9-2) Procalcitonin (0-0.5) ng/ml TSH (0.300-4.500) uIu/ml Free T4 (0.8-1.6) ng/dl Free T3 (2.3-4.2) pg/ml Urine Color Urine Appearance (Clear) Urine pH (4.5-7.5) Ur Specific [place] (1.000-1.030) Urine Protein (Negative) Urine Glucose (UA) (Negative) Urine Ketones (Negative) Urine Blood (Negative) Urine Nitrite (Negative) Urine Bilirubin (Negative) Urine Urobilinogen (Negative) Ur Leukocyte Esterase (Negative) Urine WBC (Auto) (0-5) /hpf Urine RBC (Auto) (0-4) /hpf U Hyaline Cast (Auto) (0-5) /lpf U Epithel Cells (Auto) (0-5) /lpf Urine Bacteria (Auto) (Negative) Ur Renal Epithelial Cell Granular Casts (0) /lpf Urine Mucus (None Prsent) Urine Sperm (None Prsent) CSF Appearance CSF Color Xanthrochromic CSF WBC (0-5) /uL CSF RBC (0-) /uL CSF Cell Count Tube # CSF Chemistry Tube # CSF Glucose (40-70) mg/dl CSF Total Protein Nasal Screen MRSA (PCR) (Negative) Salicylates < 1.7 L (2.8-20) mg/dl Urine Opiates Screen (Neg) Ur Methadone, Qual (Neg) Acetaminophen < 2 L (10-30) ug/ml Urine Barbiturates (Neg) Ur Phencyclidine (PCP) (Neg) U Amphetamin/Meth Scrn (Neg) MDMA (Ecstasy) Screen (Neg) U Benzodiazepines Scrn (Neg) Ur Cocaine Metabolite (Neg) U Marijuana (THC) Screen (Neg) Ethyl Alcohol mg/dL (0-3) mg/dl HIV 1&2 Ab/P24 Ag 4thGn (Neg) Influenza Type A (PCR) (Neg) Influenza Type B (PCR) (Neg) 01/19/19 01/19/19 01/19/19 Range/Units 08:28 08:46 08:46 WBC (4.8-10.8) K/uL RBC (4.7-6.1) M/uL Hgb (14.0-18.0) g/dL Hct (42-52) % MCV (80-100) fL MCH (25-34) pg MCHC (32-36) g/dL RDW Std Deviation (36.4-46.3) fL RDW Coeff of [place] (11.5-14.5) % Plt Count (130-400) K/uL MPV (7.4-10.4) fL Immature Gran % (Auto) % Neut % (Auto) % Lymph % (Auto) % [place] % (Auto) % Eos % (Auto) % Baso % (Auto) % Immature Gran # (Auto) (0.00-0.02) K/uL Neut # (Auto) (1.4-6.5) K/uL Lymph # (Auto) (1.2-3.4) K/uL [place] # (Auto) (0.11-0.59) K/uL Eos # (Auto) (0-0.5) K/uL Baso # (Auto) (0-0.2) K/uL PT (9.0-12.0) Seconds INR (0.9-1.1) VBG pH (7.36-7.41) VBG pCO2 (38-50) mmHg VBG pO2 mmHg VBG HCO3 mmol/L VBG O2 Saturation % VBG Base Excess mEq/L Barometric Pressure mm/Hg Sodium (136-145) mmol/L Potassium (3.5-5.1) mmol/L Chloride (98-107) mmol/L Carbon Dioxide (21-32) mmol/L Anion Gap (3-11) BUN (7-18) mg/dl Creatinine (0.6-1.4) mg/dl Est Cr Clr Drug Dosing ml/min Est GFR ( Amer) Est GFR (Non-Af Amer) BUN/Creatinine Ratio (10-20) Glucose (70-99) mg/dl POC Glucose (70-99) Osmolality 298 (280-300) mOsm/kg Lactate (0.4-2.0) mmol/L Calcium (8.5-10.1) mg/dl Phosphorus 4.9 (2.5-4.9) mg/dl Magnesium 2.7 H (1.8-2.4) mg/dl Total Bilirubin (0.2-1) mg/dl AST (15-37) U/L ALT (12-78) U/L Alkaline Phosphatase (45-117) U/L Ammonia 22.7 (11-32) umol/L Total Protein (6.4-8.2) gm/dl Albumin (3.4-5.0) gm/dl Globulin (2.5-4.0) gm/dl Albumin/Globulin Ratio (0.9-2) Procalcitonin (0-0.5) ng/ml TSH (0.300-4.500) uIu/ml Free T4 1.41 (0.8-1.6) ng/dl Free T3 (2.3-4.2) pg/ml Urine Color Urine Appearance (Clear) Urine pH (4.5-7.5) Ur Specific [place] (1.000-1.030) Urine Protein (Negative) Urine Glucose (UA) (Negative) Urine Ketones (Negative) Urine Blood (Negative) Urine Nitrite (Negative) Urine Bilirubin (Negative) Urine Urobilinogen (Negative) Ur Leukocyte Esterase (Negative) Urine WBC (Auto) (0-5) /hpf Urine RBC (Auto) (0-4) /hpf U Hyaline Cast (Auto) (0-5) /lpf U Epithel Cells (Auto) (0-5) /lpf Urine Bacteria (Auto) (Negative) Ur Renal Epithelial Cell Granular Casts (0) /lpf Urine Mucus (None Prsent) Urine Sperm (None Prsent) CSF Appearance CSF Color Xanthrochromic CSF WBC (0-5) /uL CSF RBC (0-) /uL CSF Cell Count Tube # CSF Chemistry Tube # CSF Glucose (40-70) mg/dl CSF Total Protein Nasal Screen MRSA (PCR) (Negative) Salicylates (2.8-20) mg/dl Urine Opiates Screen (Neg) Ur Methadone, Qual (Neg) Acetaminophen (10-30) ug/ml Urine Barbiturates (Neg) Ur Phencyclidine (PCP) (Neg) U Amphetamin/Meth Scrn (Neg) MDMA (Ecstasy) Screen (Neg) U Benzodiazepines Scrn (Neg) Ur Cocaine Metabolite (Neg) U Marijuana (THC) Screen (Neg) Ethyl Alcohol mg/dL (0-3) mg/dl HIV 1&2 Ab/P24 Ag 4thGn (Neg) Influenza Type A (PCR) (Neg) Influenza Type B (PCR) (Neg) 01/19/19 01/19/19 01/19/19 Range/Units 08:46 08:46 08:50 WBC (4.8-10.8) K/uL RBC (4.7-6.1) M/uL Hgb (14.0-18.0) g/dL Hct (42-52) % MCV (80-100) fL MCH (25-34) pg MCHC (32-36) g/dL RDW Std Deviation (36.4-46.3) fL RDW Coeff of [place] (11.5-14.5) % Plt Count (130-400) K/uL MPV (7.4-10.4) fL Immature Gran % (Auto) % Neut % (Auto) % Lymph % (Auto) % [place] % (Auto) % Eos % (Auto) % Baso % (Auto) % Immature Gran # (Auto) (0.00-0.02) K/uL Neut # (Auto) (1.4-6.5) K/uL Lymph # (Auto) (1.2-3.4) K/uL [place] # (Auto) (0.11-0.59) K/uL Eos # (Auto) (0-0.5) K/uL Baso # (Auto) (0-0.2) K/uL PT 11.2 (9.0-12.0) Seconds INR 1.1 (0.9-1.1) VBG pH (7.36-7.41) VBG pCO2 (38-50) mmHg VBG pO2 mmHg VBG HCO3 mmol/L VBG O2 Saturation % VBG Base Excess mEq/L Barometric Pressure mm/Hg Sodium (136-145) mmol/L Potassium (3.5-5.1) mmol/L Chloride (98-107) mmol/L Carbon Dioxide (21-32) mmol/L Anion Gap (3-11) BUN (7-18) mg/dl Creatinine (0.6-1.4) mg/dl Est Cr Clr Drug Dosing ml/min Est GFR ( Amer) Est GFR (Non-Af Amer) BUN/Creatinine Ratio (10-20) Glucose (70-99) mg/dl POC Glucose (70-99) Osmolality (280-300) mOsm/kg Lactate (0.4-2.0) mmol/L Calcium (8.5-10.1) mg/dl Phosphorus (2.5-4.9) mg/dl Magnesium (1.8-2.4) mg/dl Total Bilirubin (0.2-1) mg/dl AST (15-37) U/L ALT (12-78) U/L Alkaline Phosphatase (45-117) U/L Ammonia (11-32) umol/L Total Protein (6.4-8.2) gm/dl Albumin (3.4-5.0) gm/dl Globulin (2.5-4.0) gm/dl Albumin/Globulin Ratio (0.9-2) Procalcitonin < 0.05 (0-0.5) ng/ml TSH (0.300-4.500) uIu/ml Free T4 (0.8-1.6) ng/dl Free T3 2.40 (2.3-4.2) pg/ml Urine Color Urine Appearance (Clear) Urine pH (4.5-7.5) Ur Specific [place] (1.000-1.030) Urine Protein (Negative) Urine Glucose (UA) (Negative) Urine Ketones (Negative) Urine Blood (Negative) Urine Nitrite (Negative) Urine Bilirubin (Negative) Urine Urobilinogen (Negative) Ur Leukocyte Esterase (Negative) Urine WBC (Auto) (0-5) /hpf Urine RBC (Auto) (0-4) /hpf U Hyaline Cast (Auto) (0-5) /lpf U Epithel Cells (Auto) (0-5) /lpf Urine Bacteria (Auto) (Negative) Ur Renal Epithelial Cell Granular Casts (0) /lpf Urine Mucus (None Prsent) Urine Sperm (None Prsent) CSF Appearance CSF Color Xanthrochromic CSF WBC (0-5) /uL CSF RBC (0-) /uL CSF Cell Count Tube # CSF Chemistry Tube # CSF Glucose (40-70) mg/dl CSF Total Protein Nasal Screen MRSA (PCR) (Negative) Salicylates (2.8-20) mg/dl Urine Opiates Screen (Neg) Ur Methadone, Qual (Neg) Acetaminophen (10-30) ug/ml Urine Barbiturates (Neg) Ur Phencyclidine (PCP) (Neg) U Amphetamin/Meth Scrn (Neg) MDMA (Ecstasy) Screen (Neg) U Benzodiazepines Scrn (Neg) Ur Cocaine Metabolite (Neg) U Marijuana (THC) Screen (Neg) Ethyl Alcohol mg/dL (0-3) mg/dl HIV 1&2 Ab/P24 Ag 4thGn (Neg) Influenza Type A (PCR) (Neg) Influenza Type B (PCR) (Neg) 01/19/19 01/19/19 01/19/19 Range/Units 08:57 09:20 10:15 WBC (4.8-10.8) K/uL RBC (4.7-6.1) M/uL Hgb (14.0-18.0) g/dL Hct (42-52) % MCV (80-100) fL MCH (25-34) pg MCHC (32-36) g/dL RDW Std Deviation (36.4-46.3) fL RDW Coeff of [place] (11.5-14.5) % Plt Count (130-400) K/uL MPV (7.4-10.4) fL Immature Gran % (Auto) % Neut % (Auto) % Lymph % (Auto) % [place] % (Auto) % Eos % (Auto) % Baso % (Auto) % Immature Gran # (Auto) (0.00-0.02) K/uL Neut # (Auto) (1.4-6.5) K/uL Lymph # (Auto) (1.2-3.4) K/uL [place] # (Auto) (0.11-0.59) K/uL Eos # (Auto) (0-0.5) K/uL Baso # (Auto) (0-0.2) K/uL PT (9.0-12.0) Seconds INR (0.9-1.1) VBG pH (7.36-7.41) VBG pCO2 (38-50) mmHg VBG pO2 mmHg VBG HCO3 mmol/L VBG O2 Saturation % VBG Base Excess mEq/L Barometric Pressure mm/Hg Sodium (136-145) mmol/L Potassium (3.5-5.1) mmol/L Chloride (98-107) mmol/L Carbon Dioxide (21-32) mmol/L Anion Gap (3-11) BUN (7-18) mg/dl Creatinine (0.6-1.4) mg/dl Est Cr Clr Drug Dosing ml/min Est GFR ( Amer) Est GFR (Non-Af Amer) BUN/Creatinine Ratio (10-20) Glucose (70-99) mg/dl POC Glucose (70-99) Osmolality (280-300) mOsm/kg Lactate (0.4-2.0) mmol/L Calcium (8.5-10.1) mg/dl Phosphorus (2.5-4.9) mg/dl Magnesium (1.8-2.4) mg/dl Total Bilirubin (0.2-1) mg/dl AST (15-37) U/L ALT (12-78) U/L Alkaline Phosphatase (45-117) U/L Ammonia (11-32) umol/L Total Protein (6.4-8.2) gm/dl Albumin (3.4-5.0) gm/dl Globulin (2.5-4.0) gm/dl Albumin/Globulin Ratio (0.9-2) Procalcitonin (0-0.5) ng/ml TSH (0.300-4.500) uIu/ml Free T4 (0.8-1.6) ng/dl Free T3 (2.3-4.2) pg/ml Urine Color Urine Appearance (Clear) Urine pH (4.5-7.5) Ur Specific [place] (1.000-1.030) Urine Protein (Negative) Urine Glucose (UA) (Negative) Urine Ketones (Negative) Urine Blood (Negative) Urine Nitrite (Negative) Urine Bilirubin (Negative) Urine Urobilinogen (Negative) Ur Leukocyte Esterase (Negative) Urine WBC (Auto) (0-5) /hpf Urine RBC (Auto) (0-4) /hpf U Hyaline Cast (Auto) (0-5) /lpf U Epithel Cells (Auto) (0-5) /lpf Urine Bacteria (Auto) (Negative) Ur Renal Epithelial Cell Granular Casts (0) /lpf Urine Mucus (None Prsent) Urine Sperm (None Prsent) CSF Appearance CSF Color Xanthrochromic CSF WBC (0-5) /uL CSF RBC (0-) /uL CSF Cell Count Tube # CSF Chemistry Tube # CSF Glucose (40-70) mg/dl CSF Total Protein Cancelled Nasal Screen MRSA (PCR) Negative (Negative) Salicylates (2.8-20) mg/dl Urine Opiates Screen (Neg) Ur Methadone, Qual (Neg) Acetaminophen (10-30) ug/ml Urine Barbiturates (Neg) Ur Phencyclidine (PCP) (Neg) U Amphetamin/Meth Scrn (Neg) MDMA (Ecstasy) Screen (Neg) U Benzodiazepines Scrn (Neg) Ur Cocaine Metabolite (Neg) U Marijuana (THC) Screen (Neg) Ethyl Alcohol mg/dL (0-3) mg/dl HIV 1&2 Ab/P24 Ag 4thGn Neg (Neg) Influenza Type A (PCR) (Neg) Influenza Type B (PCR) (Neg) 01/19/19 01/19/19 01/19/19 Range/Units 10:15 10:15 11:26 WBC (4.8-10.8) K/uL RBC (4.7-6.1) M/uL Hgb (14.0-18.0) g/dL Hct (42-52) % MCV (80-100) fL MCH (25-34) pg MCHC (32-36) g/dL RDW Std Deviation (36.4-46.3) fL RDW Coeff of [place] (11.5-14.5) % Plt Count (130-400) K/uL MPV (7.4-10.4) fL Immature Gran % (Auto) % Neut % (Auto) % Lymph % (Auto) % [place] % (Auto) % Eos % (Auto) % Baso % (Auto) % Immature Gran # (Auto) (0.00-0.02) K/uL Neut # (Auto) (1.4-6.5) K/uL Lymph # (Auto) (1.2-3.4) K/uL [place] # (Auto) (0.11-0.59) K/uL Eos # (Auto) (0-0.5) K/uL Baso # (Auto) (0-0.2) K/uL PT (9.0-12.0) Seconds INR (0.9-1.1) VBG pH (7.36-7.41) VBG pCO2 (38-50) mmHg VBG pO2 mmHg VBG HCO3 mmol/L VBG O2 Saturation % VBG Base Excess mEq/L Barometric Pressure mm/Hg Sodium (136-145) mmol/L Potassium (3.5-5.1) mmol/L Chloride (98-107) mmol/L Carbon Dioxide (21-32) mmol/L Anion Gap (3-11) BUN (7-18) mg/dl Creatinine (0.6-1.4) mg/dl Est Cr Clr Drug Dosing ml/min Est GFR ( Amer) Est GFR (Non-Af Amer) BUN/Creatinine Ratio (10-20) Glucose (70-99) mg/dl POC Glucose 120 H (70-99) Osmolality (280-300) mOsm/kg Lactate (0.4-2.0) mmol/L Calcium (8.5-10.1) mg/dl Phosphorus (2.5-4.9) mg/dl Magnesium (1.8-2.4) mg/dl Total Bilirubin (0.2-1) mg/dl AST (15-37) U/L ALT (12-78) U/L Alkaline Phosphatase (45-117) U/L Ammonia (11-32) umol/L Total Protein (6.4-8.2) gm/dl Albumin (3.4-5.0) gm/dl Globulin (2.5-4.0) gm/dl Albumin/Globulin Ratio (0.9-2) Procalcitonin (0-0.5) ng/ml TSH (0.300-4.500) uIu/ml Free T4 (0.8-1.6) ng/dl Free T3 (2.3-4.2) pg/ml Urine Color Urine Appearance (Clear) Urine pH (4.5-7.5) Ur Specific [place] (1.000-1.030) Urine Protein (Negative) Urine Glucose (UA) (Negative) Urine Ketones (Negative) Urine Blood (Negative) Urine Nitrite (Negative) Urine Bilirubin (Negative) Urine Urobilinogen (Negative) Ur Leukocyte Esterase (Negative) Urine WBC (Auto) (0-5) /hpf Urine RBC (Auto) (0-4) /hpf U Hyaline Cast (Auto) (0-5) /lpf U Epithel Cells (Auto) (0-5) /lpf Urine Bacteria (Auto) (Negative) Ur Renal Epithelial Cell Granular Casts (0) /lpf Urine Mucus (None Prsent) Urine Sperm (None Prsent) CSF Appearance Clear CSF Color Colorless Xanthrochromic No xanthochromia CSF WBC 0 (0-5) /uL CSF RBC 38 (0-) /uL CSF Cell Count Tube # 3 CSF Chemistry Tube # 1 CSF Glucose 82 H (40-70) mg/dl CSF Total Protein 58.0 H Nasal Screen MRSA (PCR) (Negative) Salicylates (2.8-20) mg/dl Urine Opiates Screen (Neg) Ur Methadone, Qual (Neg) Acetaminophen (10-30) ug/ml Urine Barbiturates (Neg) Ur Phencyclidine (PCP) (Neg) U Amphetamin/Meth Scrn (Neg) MDMA (Ecstasy) Screen (Neg) U Benzodiazepines Scrn (Neg) Ur Cocaine Metabolite (Neg) U Marijuana (THC) Screen (Neg) Ethyl Alcohol mg/dL (0-3) mg/dl HIV 1&2 Ab/P24 Ag 4thGn (Neg) Influenza Type A (PCR) (Neg) Influenza Type B (PCR) (Neg) 01/19/19 01/19/19 Range/Units 19:15 Unknown WBC (4.8-10.8) K/uL RBC (4.7-6.1) M/uL Hgb (14.0-18.0) g/dL Hct (42-52) % MCV (80-100) fL MCH (25-34) pg MCHC (32-36) g/dL RDW Std Deviation (36.4-46.3) fL RDW Coeff of [place] (11.5-14.5) % Plt Count (130-400) K/uL MPV (7.4-10.4) fL Immature Gran % (Auto) % Neut % (Auto) % Lymph % (Auto) % [place] % (Auto) % Eos % (Auto) % Baso % (Auto) % Immature Gran # (Auto) (0.00-0.02) K/uL Neut # (Auto) (1.4-6.5) K/uL Lymph # (Auto) (1.2-3.4) K/uL [place] # (Auto) (0.11-0.59) K/uL Eos # (Auto) (0-0.5) K/uL Baso # (Auto) (0-0.2) K/uL PT (9.0-12.0) Seconds INR (0.9-1.1) VBG pH (7.36-7.41) VBG pCO2 (38-50) mmHg VBG pO2 mmHg VBG HCO3 mmol/L VBG O2 Saturation % VBG Base Excess mEq/L Barometric Pressure mm/Hg Sodium (136-145) mmol/L Potassium (3.5-5.1) mmol/L Chloride (98-107) mmol/L Carbon Dioxide (21-32) mmol/L Anion Gap (3-11) BUN (7-18) mg/dl Creatinine (0.6-1.4) mg/dl Est Cr Clr Drug Dosing ml/min Est GFR ( Amer) Est GFR (Non-Af Amer) BUN/Creatinine Ratio (10-20) Glucose (70-99) mg/dl POC Glucose 109 H (70-99) Osmolality (280-300) mOsm/kg Lactate (0.4-2.0) mmol/L Calcium (8.5-10.1) mg/dl Phosphorus (2.5-4.9) mg/dl Magnesium (1.8-2.4) mg/dl Total Bilirubin (0.2-1) mg/dl AST (15-37) U/L ALT (12-78) U/L Alkaline Phosphatase (45-117) U/L Ammonia (11-32) umol/L Total Protein (6.4-8.2) gm/dl Albumin (3.4-5.0) gm/dl Globulin (2.5-4.0) gm/dl Albumin/Globulin Ratio (0.9-2) Procalcitonin (0-0.5) ng/ml TSH (0.300-4.500) uIu/ml Free T4 (0.8-1.6) ng/dl Free T3 (2.3-4.2) pg/ml Urine Color Urine Appearance (Clear) Urine pH (4.5-7.5) Ur Specific [place] (1.000-1.030) Urine Protein (Negative) Urine Glucose (UA) (Negative) Urine Ketones (Negative) Urine Blood (Negative) Urine Nitrite (Negative) Urine Bilirubin (Negative) Urine Urobilinogen (Negative) Ur Leukocyte Esterase (Negative) Urine WBC (Auto) (0-5) /hpf Urine RBC (Auto) (0-4) /hpf U Hyaline Cast (Auto) (0-5) /lpf U Epithel Cells (Auto) (0-5) /lpf Urine Bacteria (Auto) (Negative) Ur Renal Epithelial Cell Granular Casts (0) /lpf Urine Mucus (None Prsent) Urine Sperm (None Prsent) CSF Appearance CSF Color Xanthrochromic CSF WBC (0-5) /uL CSF RBC (0-) /uL CSF Cell Count Tube # CSF Chemistry Tube # CSF Glucose (40-70) mg/dl CSF Total Protein Nasal Screen MRSA (PCR) (Negative) Salicylates (2.8-20) mg/dl Urine Opiates Screen (Neg) Ur Methadone, Qual (Neg) Acetaminophen (10-30) ug/ml Urine Barbiturates (Neg) Ur Phencyclidine (PCP) (Neg) U Amphetamin/Meth Scrn (Neg) MDMA (Ecstasy) Screen (Neg) U Benzodiazepines Scrn (Neg) Ur Cocaine Metabolite (Neg) U Marijuana (THC) Screen (Neg) Ethyl Alcohol mg/dL (0-3) mg/dl HIV 1&2 Ab/P24 Ag 4thGn (Neg) Influenza Type A (PCR) Neg for Influ A (Neg) Influenza Type B (PCR) Neg for Influ B (Neg) Imaging Data Radiologist's Impression: Radiology results as stated below per my review and the radiologist's interpretation: CT OF THE HEAD WITHOUT CONTRAST CLINICAL HISTORY: Head injury. COMPARISON STUDY: Head CT October 04, 2015. CT DOSE: 614.27 mGy.cm TECHNIQUE: Helical axial images of the head were obtained without IV contrast. Automated exposure control was utilized for the study. A dose lowering technique was utilized adhering to the principles of ALARA. FINDINGS: No acute intracranial hemorrhage, midline shift or mass effect is present. Ventricular system is normal. The basilar cisterns are patent. There are no extra-axial collections. Ward-white differentiation is maintained. There is no calvarial fracture. IMPRESSION: 1. No acute intracranial findings. 2. No calvarial fracture. Electronically signed by: Jayson Lima M.D. 01/18/2019 11:02 PM Blood Pressure Blood Pressure Findings: Normal blood pressure Blood Pressure Disposition: elevated BP felt to be situational MDM Narrative This is a 28-year-old male who was sent in by [facility] over concerns that he was not sleeping and not taking his medications. Upon arrival to the emergency department the patient was given his medications and was cooperative. He then fell asleep. I will know that the patient has a long history of sleeping when admitted to the hospital. He was sent for CAT scan of the head which did not show any acute abnormality. Laboratory work is also noncontributory the patient is afebrile. He was signed out to Dr. Iverson at change of shift awaiting mental health evaluation. Impression & Plan Altered mental state, Noncompliance w/medication treatment due to intermit use of medication Discharge Plan Visit Data *Final* Discharge Date/Time: 01/19/19 06:10 Chief Complaint: Altered Mental Status Stated Complaint: ANXIETY, HALLUCINATIONS ED Provider: Danii Iverson Discharge Problem: Altered mental state, Noncompliance w/medication treatment due to intermit use of medication Patient Disposition: Admitted As Inpatient Discharge Instructions Interventions: ED Discharge Assessment Last Done: 01/19/19 06:10 The scribe's documentation has been prepared under my direction and personally reviewed by me in its entirety. I confirm that the note above accurately reflects all work, treatment, procedures, and medical decision making performed by me.
--- NOTE | 2019-01-19 03:21 | Emergency Department Note ---
ED Visit Note This case was signed out to me at change of shift. We are awaiting the patient to wake up. He had been sleep deprived for some time and then received his meds here in the emergency department. He is sleeping at this time. The nursing staff have attempted to wake this patient but were unsuccessful. They noticed that the patient had vomited a small amount on the bed in his sleep. I went to the room to evaluate the patient and noted that he was completely unresponsive with a GCS of 7. There was no response with loud verbal stimuli or painful stimuli. He would occasionally open his eyes and withdraw with significant painful stimuli. BSG was 105. The patient's vital signs were completely stable. I performed another complete physical exam which was normal except for he had nonreactive pinpoint pupils. At that point, the patient was given 2 mg of IV Narcan which made no difference to his mental status. I reviewed the patient's laboratory studies, CT scan of the brain, and medical records from this emergency department visit. I discussed the case with the ED psychiatric case technician who evaluated the patient upon his initial presentation to the emergency department. She explains that the patient was initially able to answer questions although he would start to fall asleep if not persistently stimulated. The patient denied taking any illicit drugs. Nursing staff have been observing the patient throughout his stay here in the emergency department and have not noticed any seizure activity. We will initiate a second IV lock and repeat all of the patient's laboratory studies to rule out any acute change in anion gap or electrolytes. The patient will be admitted to the medical service for an acute altered mental status. The patient's white blood cell count has increased slightly. Temp is slightly elevated at 37.6. The patient has no signs of meningismus. There is no anion gap. I discussed the case with Dr. Moore from [facility] and they will evaluate for medical admission. Diagnosis: Altered mental status Plan: Admit to the medical floor with psych evaluation after medical clearance. .
[2019-01-19] MEDS ORDERED: NALOXONE HCL 0.4 MG/1 ML VIAL/CARP ONE ×2 (03:36→03:38)
[2019-01-19 04:03] LABS: Basophils # (auto) 0.01 K/uL (0-0.2); Basophils % (auto) 0.1 %; Hematocrit (blood only) 41.1 % (42-52); Hemoglobin 14.1 g/dL (14.0-18.0); Immature Granulocytes # (auto) 0.03 K/uL (0.00-0.02); Immature Granulocytes % (auto) 0.2 %; Lymphocytes % (auto) 3.3 %; Mean Corpuscular Hgb Conc 34.3 g/dL (32-36); Mean Corpuscular Volume 88.2 fL (80-100); Mean Platelet Volume 10.7 fL (7.4-10.4); Monocytes # (auto) 0.59 K/uL (0.11-0.59); Monocytes % (auto) 3.9 %; Neutrophils # (auto) 13.94 K/uL (1.4-6.5); Neutrophils % (auto) 92.5 %; Platelet Count 298 K/uL (130-400); RDW Coefficient of Variation 14.1 % (11.5-14.5); RDW Standard Deviation 45.7 fL (36.4-46.3); Red Blood Count 4.66 M/uL (4.7-6.1); White Blood Count 15.07 K/uL (4.8-10.8)
[2019-01-19 04:22] LABS: Calcium 8.7 mg/dl (8.5-10.1); Creatinine Clr Calc Pharmacy 88.7 ml/min; Est GFR (African American) 84.1; Est GFR (Non-African American) 72.6; Potassium 3.7 mmol/L (3.5-5.1)
[2019-01-19 04:25] LABS: Acetaminophen < 2 ug/ml (10-30); Salicylate < 1.7 mg/dl (2.8-20)
[2019-01-19 04:33] LABS: Bilirubin,Total 0.4 mg/dl (0.2-1); Globulin 4.2 gm/dl (2.5-4.0); Total Protein 8.2 gm/dl (6.4-8.2)
--- NOTE | 2019-01-19 05:53 | History & Physical Report ---
Date of Service January 19, 2019 Assessment & Plan (1) Metabolic encephalopathy: Somnolent, GCS=7. Toxic/metabolic workup thus far largely unrevealing - electrolytes, renal function and blood glucose WNL. UTox and CT brain unremarkable. Patient with neutrophil predominant leukocytosis. Afebrile and hemodynamically stable, adequate oxygenation on room air. Etiology unclear ?ingestion ?seizure -Admit to medical floor with telemetry and continuous pulse oximetry -Neuro checks q 4 hours with GCS -Check EKG to assess QT interval and conduction -Check Mag, Phos, serum osmolality, VBG, ammonia level and thyroid studies -If patient fails to improve or worsens would consider Neurology consultation, MRI, EEG and possible LP -Consult Psychiatry for assistance with this case -A more detailed history of events can be obtained when patient's mental status improves Present on Admission?: Yes (2) Schizophrenia: Patient with schizophrenia maintained on Clozapine. ?compliance with his medications. Report of auditory hallucinations prior to arrival. Patient with neutrophil predominant leukocytosis on CBC. Eosinophilia resolved -Continue Clozapine -Psychiatry assessment - appreciate assistance Present on Admission?: Yes (3) Depression: Chronic -Continue Sertraline -Psychiatry consultation as above F/E/N - LR at 125mL/hr x 1 liter, montior electroltyes, NPO for now, will advance diet if mental status improves Ppx - low risk for dvt Code - full, assumed. Patient is unable to provide information at this time Dispo - Admit to medical floor History of Present Illness Chief Complaint: metabolic encephalopathy Primary Care Provider: Duane Delgado MD Patient unable to provide history secondary to AMS - information obtained through chart review and discussion with ER attending. Patient is a 28yo [place] male with extensive Psychiatric history to include Schizophrenia, depression, prior suicide attempts with medication overdose. He had a prolonged hospital stay in May 2018 after a suicide attempt. Patient resides at a snf. He presents to [facility] today with altered mental status. Per records, the patient stopped taking his psychiatric medication. He hasn't been sleeping for a few days. He had a reported seizure prior to arrival and was administered Ativan. Also with auditory hallucinations. While in the Er patient had an episode of vomiting. He was administered Narcan 2mg IV with no improvement in mental status. ER Course: Clozapine 200mg, Narcan 0.4mg, 1.2mg, Sertraline 75mg, NSS x 1 liter Allergies Allergy/AdvReac Type Severity Reaction Status Date / Time No Known Allergies Allergy Unverified 05/14/18 10:35 Home Medications Home Medications Medication Instructions Recorded Confirmed Type clozapine 200 mg PO HS #30 tab 06/07/18 01/18/19 Rx sertraline 75 mg PO QAM #30 tab 06/07/18 01/18/19 Rx Past Med/Surg History Medical History Eosinophilia Depression (Acute) Suicide attempt Tic Metabolic encephalopathy Schizophrenia Social History Feels Safe at Home: No Smoking Status: Never smoker Review of Systems Review of Systems: Unobtainable due to reduced consciousness Physical Exam Physical Exam: General: patient sleeping, opens eyes briefly to verbal and noxious stimuli then falls back to sleep Skin: warm, dry, intact, no rashes or lesions HEENT: NC/AT, pupils pinpoint and minimally reactive bilaterally, anicteric sclera, conjunctiva without injection, external ear normal to inspection and nontender, nares patent, moist mucus membranes, dentition intact, no oropharyngeal lesions, neck supple with no meningismus, trachea midline, no LAD, no thyromegaly, no JVD Heart: +S1/S2, regular, no m/r/g Lungs: equal air entry bilaterally, no rales/rhonchi/wheezes Abd: +BS, soft, NT/ND, no masses/organomegaly/ascites Ext: warm, 2+ pulses in UE/LE bilaterally, no clubbing/cyanosis or edema Neuro: patient withdraws and opens eyes with painful stimuli, no verbal response, GCS=7 Results & Data Vital Signs (Past 12 Hours) Vital Signs Temp Pulse Pulse Resp BP BP Pulse Ox 01/19/19 05:01 95 H 20 110/68 95 01/19/19 04:30 100 H 22 111/66 96 01/19/19 04:11 37.6 C H 109/61 01/19/19 04:07 100 H 24 96 01/19/19 03:24 100 H 20 123/73 97 01/19/19 02:00 95 H 125/74 98 01/19/19 00:22 100 H 102/70 100 01/18/19 21:49 115 H 16 115/76 98 01/18/19 19:42 37 C 125 H 22 119/73 98 Laboratory Results Lab Results 01/18/19 01/18/19 01/18/19 Range/Units 20:30 20:30 20:30 WBC 10.35 (4.8-10.8) K/uL RBC 4.57 L (4.7-6.1) M/uL Hgb 13.9 L (14.0-18.0) g/dL Hct 40.1 L (42-52) % MCV 87.7 (80-100) fL MCH 30.4 (25-34) pg MCHC 34.7 (32-36) g/dL RDW Std Deviation 44.3 (36.4-46.3) fL RDW Coeff of Tawanna 13.9 (11.5-14.5) % Plt Count 295 (130-400) K/uL MPV 10.4 (7.4-10.4) fL Immature Gran % (Auto) 0.4 % Neut % (Auto) 79.5 % Lymph % (Auto) 11.2 % [place] % (Auto) 7.2 % Eos % (Auto) 1.3 % Baso % (Auto) 0.4 % Immature Gran # (Auto) 0.04 H (0.00-0.02) K/uL Neut # (Auto) 8.23 H (1.4-6.5) K/uL Lymph # (Auto) 1.16 L (1.2-3.4) K/uL [place] # (Auto) 0.75 H (0.11-0.59) K/uL Eos # (Auto) 0.13 (0-0.5) K/uL Baso # (Auto) 0.04 (0-0.2) K/uL Sodium 141 (136-145) mmol/L Potassium 4.1 (3.5-5.1) mmol/L Chloride 108 H (98-107) mmol/L Carbon Dioxide 25 (21-32) mmol/L Anion Gap 8.0 (3-11) BUN 15 (7-18) mg/dl Creatinine 1.45 H (0.6-1.4) mg/dl Est Cr Clr Drug Dosing 81.9 ml/min Est GFR ( Amer) 76.5 Est GFR (Non-Af Amer) 66.0 BUN/Creatinine Ratio 10.1 (10-20) Glucose 97 (70-99) mg/dl POC Glucose (70-99) Calcium 9.5 (8.5-10.1) mg/dl Total Bilirubin 0.4 (0.2-1) mg/dl AST 28 (15-37) U/L ALT 35 (12-78) U/L Alkaline Phosphatase 80 (45-117) U/L Total Protein 7.8 (6.4-8.2) gm/dl Albumin 3.9 (3.4-5.0) gm/dl Globulin 3.9 (2.5-4.0) gm/dl Albumin/Globulin Ratio 1.0 (0.9-2) TSH 1.400 (0.300-4.500) uIu/ml Urine Color Urine Appearance (Clear) Urine pH (4.5-7.5) Ur Specific [place] (1.000-1.030) Urine Protein (Negative) Urine Glucose (UA) (Negative) Urine Ketones (Negative) Urine Blood (Negative) Urine Nitrite (Negative) Urine Bilirubin (Negative) Urine Urobilinogen (Negative) Ur Leukocyte Esterase (Negative) Urine WBC (Auto) (0-5) /hpf Urine RBC (Auto) (0-4) /hpf U Hyaline Cast (Auto) (0-5) /lpf U Epithel Cells (Auto) (0-5) /lpf Urine Bacteria (Auto) (Negative) Ur Renal Epithelial Cell Granular Casts (0) /lpf Urine Mucus (None Prsent) Urine Sperm (None Prsent) Salicylates < 1.7 L (2.8-20) mg/dl Urine Opiates Screen (Neg) Ur Methadone, Qual (Neg) Acetaminophen < 2 L (10-30) ug/ml Urine Barbiturates (Neg) Ur Phencyclidine (PCP) (Neg) U Amphetamin/Meth Scrn (Neg) MDMA (Ecstasy) Screen (Neg) U Benzodiazepines Scrn (Neg) Ur Cocaine Metabolite (Neg) U Marijuana (THC) Screen (Neg) Ethyl Alcohol mg/dL (0-3) mg/dl 01/18/19 01/18/19 01/18/19 Range/Units 20:30 21:14 21:14 WBC (4.8-10.8) K/uL RBC (4.7-6.1) M/uL Hgb (14.0-18.0) g/dL Hct (42-52) % MCV (80-100) fL MCH (25-34) pg MCHC (32-36) g/dL RDW Std Deviation (36.4-46.3) fL RDW Coeff of Tawanna (11.5-14.5) % Plt Count (130-400) K/uL MPV (7.4-10.4) fL Immature Gran % (Auto) % Neut % (Auto) % Lymph % (Auto) % [place] % (Auto) % Eos % (Auto) % Baso % (Auto) % Immature Gran # (Auto) (0.00-0.02) K/uL Neut # (Auto) (1.4-6.5) K/uL Lymph # (Auto) (1.2-3.4) K/uL [place] # (Auto) (0.11-0.59) K/uL Eos # (Auto) (0-0.5) K/uL Baso # (Auto) (0-0.2) K/uL Sodium (136-145) mmol/L Potassium (3.5-5.1) mmol/L Chloride (98-107) mmol/L Carbon Dioxide (21-32) mmol/L Anion Gap (3-11) BUN (7-18) mg/dl Creatinine (0.6-1.4) mg/dl Est Cr Clr Drug Dosing ml/min Est GFR ( Amer) Est GFR (Non-Af Amer) BUN/Creatinine Ratio (10-20) Glucose (70-99) mg/dl POC Glucose (70-99) Calcium (8.5-10.1) mg/dl Total Bilirubin (0.2-1) mg/dl AST (15-37) U/L ALT (12-78) U/L Alkaline Phosphatase (45-117) U/L Total Protein (6.4-8.2) gm/dl Albumin (3.4-5.0) gm/dl Globulin (2.5-4.0) gm/dl Albumin/Globulin Ratio (0.9-2) TSH (0.300-4.500) uIu/ml Urine Color Yellow Urine Appearance Cloudy A (Clear) Urine pH 6.0 (4.5-7.5) Ur Specific [place] 1.030 (1.000-1.030) Urine Protein 2+ H (Negative) Urine Glucose (UA) Negative (Negative) Urine Ketones 1+ H (Negative) Urine Blood Trace H (Negative) Urine Nitrite Negative (Negative) Urine Bilirubin Negative (Negative) Urine Urobilinogen Negative (Negative) Ur Leukocyte Esterase Negative (Negative) Urine WBC (Auto) 10-30 H (0-5) /hpf Urine RBC (Auto) 0-4 (0-4) /hpf U Hyaline Cast (Auto) 10-30 H (0-5) /lpf U Epithel Cells (Auto) >30 H (0-5) /lpf Urine Bacteria (Auto) Negative (Negative) Ur Renal Epithelial Cell Not Reportable Granular Casts 1-5 H (0) /lpf Urine Mucus Present A (None Prsent) Urine Sperm Present A (None Prsent) Salicylates (2.8-20) mg/dl Urine Opiates Screen Neg (Neg) Ur Methadone, Qual Neg (Neg) Acetaminophen (10-30) ug/ml Urine Barbiturates Neg (Neg) Ur Phencyclidine (PCP) Neg (Neg) U Amphetamin/Meth Scrn Neg (Neg) MDMA (Ecstasy) Screen Neg (Neg) U Benzodiazepines Scrn Neg (Neg) Ur Cocaine Metabolite Neg (Neg) U Marijuana (THC) Screen Neg (Neg) Ethyl Alcohol mg/dL < 3.0 (0-3) mg/dl 01/19/19 01/19/19 01/19/19 Range/Units 03:36 03:50 03:50 WBC 15.07 H (4.8-10.8) K/uL RBC 4.66 L (4.7-6.1) M/uL Hgb 14.1 (14.0-18.0) g/dL Hct 41.1 L (42-52) % MCV 88.2 (80-100) fL MCH 30.3 (25-34) pg MCHC 34.3 (32-36) g/dL RDW Std Deviation 45.7 (36.4-46.3) fL RDW Coeff of Tawanna 14.1 (11.5-14.5) % Plt Count 298 (130-400) K/uL MPV 10.7 H (7.4-10.4) fL Immature Gran % (Auto) 0.2 % Neut % (Auto) 92.5 % Lymph % (Auto) 3.3 % [place] % (Auto) 3.9 % Eos % (Auto) 0.0 % Baso % (Auto) 0.1 % Immature Gran # (Auto) 0.03 H (0.00-0.02) K/uL Neut # (Auto) 13.94 H (1.4-6.5) K/uL Lymph # (Auto) 0.50 L (1.2-3.4) K/uL [place] # (Auto) 0.59 (0.11-0.59) K/uL Eos # (Auto) 0.00 (0-0.5) K/uL Baso # (Auto) 0.01 (0-0.2) K/uL Sodium 140 (136-145) mmol/L Potassium 3.7 (3.5-5.1) mmol/L Chloride 105 (98-107) mmol/L Carbon Dioxide 26 (21-32) mmol/L Anion Gap 9.0 (3-11) BUN 13 (7-18) mg/dl Creatinine 1.34 (0.6-1.4) mg/dl Est Cr Clr Drug Dosing 88.7 ml/min Est GFR ( Amer) 84.1 Est GFR (Non-Af Amer) 72.6 BUN/Creatinine Ratio 10.0 (10-20) Glucose 118 H (70-99) mg/dl POC Glucose 105 H (70-99) Calcium 8.7 (8.5-10.1) mg/dl Total Bilirubin 0.4 (0.2-1) mg/dl AST 34 (15-37) U/L ALT 38 (12-78) U/L Alkaline Phosphatase 84 (45-117) U/L Total Protein 8.2 (6.4-8.2) gm/dl Albumin 4.0 (3.4-5.0) gm/dl Globulin 4.2 H (2.5-4.0) gm/dl Albumin/Globulin Ratio 1.0 (0.9-2) TSH 0.335 (0.300-4.500) uIu/ml Urine Color Urine Appearance (Clear) Urine pH (4.5-7.5) Ur Specific [place] (1.000-1.030) Urine Protein (Negative) Urine Glucose (UA) (Negative) Urine Ketones (Negative) Urine Blood (Negative) Urine Nitrite (Negative) Urine Bilirubin (Negative) Urine Urobilinogen (Negative) Ur Leukocyte Esterase (Negative) Urine WBC (Auto) (0-5) /hpf Urine RBC (Auto) (0-4) /hpf U Hyaline Cast (Auto) (0-5) /lpf U Epithel Cells (Auto) (0-5) /lpf Urine Bacteria (Auto) (Negative) Ur Renal Epithelial Cell Granular Casts (0) /lpf Urine Mucus (None Prsent) Urine Sperm (None Prsent) Salicylates (2.8-20) mg/dl Urine Opiates Screen (Neg) Ur Methadone, Qual (Neg) Acetaminophen (10-30) ug/ml Urine Barbiturates (Neg) Ur Phencyclidine (PCP) (Neg) U Amphetamin/Meth Scrn (Neg) MDMA (Ecstasy) Screen (Neg) U Benzodiazepines Scrn (Neg) Ur Cocaine Metabolite (Neg) U Marijuana (THC) Screen (Neg) Ethyl Alcohol mg/dL (0-3) mg/dl 01/19/19 Range/Units 03:50 WBC (4.8-10.8) K/uL RBC (4.7-6.1) M/uL Hgb (14.0-18.0) g/dL Hct (42-52) % MCV (80-100) fL MCH (25-34) pg MCHC (32-36) g/dL RDW Std Deviation (36.4-46.3) fL RDW Coeff of Tawanna (11.5-14.5) % Plt Count (130-400) K/uL MPV (7.4-10.4) fL Immature Gran % (Auto) % Neut % (Auto) % Lymph % (Auto) % [place] % (Auto) % Eos % (Auto) % Baso % (Auto) % Immature Gran # (Auto) (0.00-0.02) K/uL Neut # (Auto) (1.4-6.5) K/uL Lymph # (Auto) (1.2-3.4) K/uL [place] # (Auto) (0.11-0.59) K/uL Eos # (Auto) (0-0.5) K/uL Baso # (Auto) (0-0.2) K/uL Sodium (136-145) mmol/L Potassium (3.5-5.1) mmol/L Chloride (98-107) mmol/L Carbon Dioxide (21-32) mmol/L Anion Gap (3-11) BUN (7-18) mg/dl Creatinine (0.6-1.4) mg/dl Est Cr Clr Drug Dosing ml/min Est GFR ( Amer) Est GFR (Non-Af Amer) BUN/Creatinine Ratio (10-20) Glucose (70-99) mg/dl POC Glucose (70-99) Calcium (8.5-10.1) mg/dl Total Bilirubin (0.2-1) mg/dl AST (15-37) U/L ALT (12-78) U/L Alkaline Phosphatase (45-117) U/L Total Protein (6.4-8.2) gm/dl Albumin (3.4-5.0) gm/dl Globulin (2.5-4.0) gm/dl Albumin/Globulin Ratio (0.9-2) TSH (0.300-4.500) uIu/ml Urine Color Urine Appearance (Clear) Urine pH (4.5-7.5) Ur Specific [place] (1.000-1.030) Urine Protein (Negative) Urine Glucose (UA) (Negative) Urine Ketones (Negative) Urine Blood (Negative) Urine Nitrite (Negative) Urine Bilirubin (Negative) Urine Urobilinogen (Negative) Ur Leukocyte Esterase (Negative) Urine WBC (Auto) (0-5) /hpf Urine RBC (Auto) (0-4) /hpf U Hyaline Cast (Auto) (0-5) /lpf U Epithel Cells (Auto) (0-5) /lpf Urine Bacteria (Auto) (Negative) Ur Renal Epithelial Cell Granular Casts (0) /lpf Urine Mucus (None Prsent) Urine Sperm (None Prsent) Salicylates < 1.7 L (2.8-20) mg/dl Urine Opiates Screen (Neg) Ur Methadone, Qual (Neg) Acetaminophen < 2 L (10-30) ug/ml Urine Barbiturates (Neg) Ur Phencyclidine (PCP) (Neg) U Amphetamin/Meth Scrn (Neg) MDMA (Ecstasy) Screen (Neg) U Benzodiazepines Scrn (Neg) Ur Cocaine Metabolite (Neg) U Marijuana (THC) Screen (Neg) Ethyl Alcohol mg/dL (0-3) mg/dl Diagnostic Findings CT OF THE HEAD WITHOUT CONTRAST CLINICAL HISTORY: Head injury. COMPARISON STUDY: Head CT October 04, 2015. CT DOSE: 614.27 mGy.cm TECHNIQUE: Helical axial images of the head were obtained without IV contrast. Automated exposure control was utilized for the study. A dose lowering tech nique was utilized adhering to the principles of ALARA. FINDINGS: No acute intracranial hemorrhage, midline shift or mass effect is present. Ventricular system is normal. The basilar cisterns are patent. There are no extra-axial collections. Ward-white differentiation is maintained. There is no calvarial fracture. IMPRESSION: 1. No acute intracranial findings. 2. No calvarial fracture. Electronically signed by: Jayson Lima M.D. 01/18/2019 11:02 PM Dictated: 01/18/19 2300 Transcribed: 01/18/19 2300 Code Status & VTE Plan Code Status FULL VTE Prophylaxis Plan VTE Prophylaxis will be ordered: No Reason for no VTE drug order: Treatment not indicated (1) Schizophrenia Schizophrenia type: unspecified Qualified Code(s): F20.9 - Schizophrenia, unspecified (2) Depression Depression Type: unspecified Qualified Code(s): F32.9 - Major depressive disorder, single episode, unspecified
[2019-01-19] MEDS ORDERED: LACTATED RINGER'S 1,000 ML IV SCH (07:15)
[2019-01-19] MEDS: SERTRALINE HCL 50 MG TABLET PO SCH (07:27)
[2019-01-19] MEDS ORDERED: VANCOMYCIN CONSULT ACTIVE PRN (08:29)
[2019-01-19 08:30] LABS: Base Excess VBG -2.1 mEq/L; pH VBG 7.35 (7.36-7.41)
--- NOTE | 2019-01-19 08:52 | Hospitalist Progress Note ---
Date of Service January 19, 2019 Assessment & Plan (1) Metabolic encephalopathy: Concern over possible menigitits. Neurolgoy does not believe this is the case. But it caqn be possible as patient came in with left sided neutrophil shift and mild fever. Placed on vanco and ceftriaxone and dexamethasone Informed nurse Consulted neuro. Will order Sole Stitcher Hand consult diff diagnosis may be due to Medication side effects/ seizures. Spent 65 minutes in management of case with 35 minutes of critical care time. (2) Schizophrenia: Patient with schizophrenia maintained on Clozapine. ?compliance with his medications. Report of auditory hallucinations prior to arrival. Patient with neutrophil predominant leukocytosis on CBC. Eosinophilia resolved -Continue Clozapine -Cancelled psych consult as patient is unresponsive. (3) Depression: Chronic -Continue Sertraline -Psychiatry consultation as above Subjective 28 yo male continues to be unresponsive to verbal or painful stimuli. Patient does not provide more history. Was called by nursing staff as patient continues to not respond. Review of Systems Review of Systems: Unobtainable due to reduced consciousness Physical Exam Physical Exam: General: patient sleeping, unresponsive Skin: warm, dry, intact, no rashes or lesions HEENT: NC/AT, pupils pinpoint and minimally reactive bilaterally, anicteric sclera, conjunctiva without injection, external ear normal to inspection and nontender, nares patent, moist mucus membranes, dentition intact, no oropharyngeal lesions, neck supple with no meningismus, trachea midline, no LAD, no thyromegaly, no JVD Heart: +S1/S2, regular, no m/r/g Lungs: equal air entry bilaterally, no rales/rhonchi/wheezes Abd: +BS, soft, NT/ND, no masses/organomegaly/ascites Ext: warm, 2+ pulses in UE/LE bilaterally, no clubbing/cyanosis or edema Neuro: patient withdraws and opens eyes with painful stimuli, no verbal response, GCS=7 Results & Data Vital Signs (Past 12 Hours) Vital Signs Temp Pulse Resp BP Pulse Ox 01/19/19 07:41 37.8 C H 89 16 116/70 96 01/19/19 06:51 37.1 C 89 18 103/68 97 01/19/19 06:00 96 H 20 118/72 96 01/19/19 05:30 91 H 20 107/67 95 01/19/19 05:01 95 H 20 110/68 95 01/19/19 04:30 100 H 22 111/66 96 01/19/19 04:11 37.6 C H 109/61 01/19/19 04:07 100 H 24 96 01/19/19 03:24 100 H 20 123/73 97 01/19/19 02:00 95 H 125/74 98 01/19/19 00:22 100 H 102/70 100 01/18/19 21:49 115 H 16 115/76 98 (1) Depression Depression Type: unspecified Qualified Code(s): F32.9 - Major depressive di sorder, single episode, unspecified (2) Schizophrenia Schizophrenia type: unspecified Qualified Code(s): F20.9 - Schizophrenia, unspecified
[2019-01-19] MEDS ORDERED: DEXAMETHASONE IV SCH (09:00)
[2019-01-19] MEDS ORDERED: VANCOMYCIN HCL 2,000 MG in SODIUM CHLORIDE 0.9% 500 ML IV ONE (09:00)
[2019-01-19] MEDS ORDERED: NORMOSOL-R 1,000 ML IV ONE (09:04)
[2019-01-19] MEDS ORDERED: MIDAZOLAM HCL 5 MG/ML 1 ML VIAL IV STA ×2 (09:15→10:23)
[2019-01-19] MEDS ORDERED: MIDAZOLAM HCL 1 MG/ML 2ML VIAL ONE (09:16)
[2019-01-19] MEDS ORDERED: DEXAMETHASONE SOD PHOSPHATE 10 MG in SYRINGE 0 ML IV ONE (09:30)
--- NOTE | 2019-01-19 09:31 | XRay Report ---
XR chest 1V portable CLINICAL HISTORY: fever COMPARISON STUDY: May 11, 2018 FINDINGS: The heart is borderline enlarged. There are subtle left basilar airspace opacities versus s ummation with overlying chest wall soft tissue. A PA and lateral study should be considered in follow -up. There are no pleural effusions. There is no failure.[ IMPRESSION: Equivocal left basilar airspace opacities. A PA and lateral study might be of benefit in follow-up. Electronically signed by: Aneudy Feng M.D. 01/19/2019 9:30 AM
[2019-01-19 09:39] LABS: Magnesium 2.7 mg/dl (1.8-2.4); Phosphorus 4.9 mg/dl (2.5-4.9); T4 Free Thyroxine 1.41 ng/dl (0.8-1.6)
[2019-01-19] MEDS ORDERED: LIDOCAINE HCL 1% 20 ML VIAL ONE (09:55)
--- NOTE | 2019-01-19 10:22 | Critical Care Consultation ---
Date of Consultation January 19, 2019 Assessment & Plan (1) Altered mental state: Reason Critically Ill: []-year-old [female] [male] here with a PMHx significant for [] who presented with [] and who was admitted for []. Neuro - [facility] ICU: POSITIVE Alerted Mental Status Paranoid Schizophrenia - Complex medical history with multiple hospitalization related to mental illness. Reportedly noncompliant with antipsychotics prior to admission. Following last admission had been flown to [place] for family support. Repordly last on clozapine. - LP results pending for consideration of infection/metabolic/immune mediated causes of AMS - Clozapine 200mg qHS Cardiac - - No cardiac history - EKG with NSR and no signs of QTc in setting of antipsychotic treatment. Respiratory - PNA vs atelectasis - CT-C shows small multifocal infiltrates medial RLL and superior RLL - Leukocytosis to 15 - Azithromycin 500x1, 250x 4 days - Ceftriaxone 2g daily GI - NPO 2/2 AMS Normosol 125cc/hr RENAL/LYTES - No significant electrolyte derangement. Replace lytes as needed. - - No fay at this time. Continue to follow mental status - If agitated and retaining urine on bladder scan consider cath, but prefer to hold off for now as mental status seemed to be slightly improved on arrival to unit and do not want to further agitate him ENDO - No history of DM or metabolic syndrome Glucose adequately controlled HEME - Stable H&H. Risk of myelosuppression 2/2 cloazpine. Continue to follow, no signs at this time Will monitor for any drops in the setting of Heparin gtt ID - LP Completed, meningitis workup pending CAP Tx with Azithromycin 500x1 + 250mg x4, Rocephin 7 day course - BC pending - CAP PNA coverage as above INTEGUMENTARY - No lesions/findings at this time LINES/IV ACCESS - PIVs intact. DVT PROPHYLAXIS - Lovenox 40mg SQ daily Thank you for allowing us to be part of this patient's care. Please refer to Dr. Srinivasan's documentation for any further recommendations. Supervising Physician Co-Signing Physician Notes Dr. Eddy was resident physician during care of patient. I separately evaluated patient for pereira portions of the history and the exam. I was present during the critical portion of medical decision making, and I discussed the case with the resident. I generally agree with the findings and plan. Reason Critically Ill: 28-year-old male with acute encephalopathy and febrile illness concerning for possible meningitis PLAN: Neuro: Acute encephalopathy: Likely metabolic versus psychiatric - LP performed awaiting laboratory analysis appears unremarkable Schizophrenia -History of multiple psychiatric admissions at multiple institutions. -History of similar presentation which was associated with medical noncompliance Medical noncompliance CVS -EKG: Normal sinus rhythm with normal QTC Resp: Infiltrate on chest x-ray - Follow-up noncontrast CT as patient unable to cooperate with 2 view chest Fluids/Renal: LR at 125 ID: Febrile illness: Presumed pulmonary source - Blood cultures obtained -CSF obtained awaiting cultures -Community-acquired pulmonary coverage, azithromycin and Rocephin GI/Nutrition: N.p.o. while encephalopathic Heme: Leukocytosis DVT prophylaxis: Lovenox 40 daily Endocrine: ICU hyperglycemia protocol Given one-time dose 10 mg Decadron for possible meningitis Vascular access: Peripheral IVs Code Status: Full Dr. Eddy was resident physician during care of patient. I separately evaluated patient for pereira portions of the history and the exam. I was present during the critical portion of medical decision making, and I discussed the case with the resident. I generally agree with the findings and plan. Update: Patient underwent CT scan for better characterization of infiltrates on chest x-ray as he would be unable to cooperate for two-view chest x-ray, results reviewed I have also reviewed the results of an EEG and a neurology consultation. Patient did become agitated at one point stating he was God. Given [address] of chest report reviewed most likely consistent with early pneumonia. He is currently covered for community-acquired pathogens. Lumbar puncture results reviewed no concern for bacterial meningitis at this time. HIV and influenza both negative I have personally spent 40 minutes of critical care time in the direct management of this patient. This is a life/limb threatening event. This includes time spent evaluating patient, direct bedside care, chart review, placing orders, interpretation of diagnostic studies, discussion with consultants, patient, and/or family members regarding treatment decisions, as well as other required patient management activities. This time is exclusive of all separately billable procedures, and teaching time and separate from and in addition to any other critical care service time. History of Present Illness Reason for Consultation: [facility] Requesting Physician: Nancy Moore DO Attending Physician: Nancy M Oscar, DO History of Present Illness Abdulazeez is a 28 yo M with a PMHx of multiple hospitalizations for paranoid schizophrenia with auditory hallucinations and a past suicide attempt who was flown to be under the care of his family after a prior state hospitalization. He returned to [employer] and had been living in a alf when his mental status worsened and had a seizure in the setting of medication noncompliance. Further history was not able to be elicted due to his cognitive status. On arrival he was treated with Narcan and admitted with a GCS of 7. Toxicology and CT-H were unremarkable with no gross electrolyte abnormality and hypomagnesemia to 2.7. He an uptrending leukocyte count to 15. Critical care was consulted for lumbar puncture and further care. Allergies Allergy/AdvReac Type Severity Reaction Status Date / Time No Known Allergies Allergy Unverified 05/14/18 10:35 Home Medications Home Medications Medication Instructions Recorded Confirmed Type clozapine 200 mg PO HS #30 tab 06/07/18 01/18/19 Rx sertraline 75 mg PO QAM #30 tab 06/07/18 01/18/19 Rx Patient History Medical History Eosinophilia Depression (Acute) Suicide attempt Tic Metabolic encephalopathy Schizophrenia Social History Communication Ability: unrespons Beliefs That Will Affect Care: None Current Living Situation: Other Feels Safe at Home: No Smoking Status: Never smoker Cigarettes Per Day: Patient unresponsive at this time Smoking End Date: Patient unresponsive at this time Hx Alcohol Use: No (Patient unresponsive at this time) Hx Substance Use: No (Patient unresponsive at this time) Review of Systems Review of Systems: Unobtainable due to cognitive status Physical Exam Physical Exam: General: Somnolent, transiently arouses to name and physical stimuli. Skin: Warm, dry, without lesions. HEENT: Atraumatic, normocephalic. Pulm: CTAB A&P. -wheezes, -rales, -rhonchi. Symmetrical chest rise. No increase work of breathing. No respiratory distress. Cardiac: RRR, -mrg. Radial pulses intact and symmetrical. Neuro: Arouses to voice and stimuli transiently. Briefly move neck to chin on command. Exam further limited by cognitive status. Results & Data Vital Signs (Past 12 Hours) Vital Signs Temp Pulse Resp BP Pulse Ox 01/19/19 07:41 37.8 C H 89 16 116/70 96 01/19/19 06:51 37.1 C 89 18 103/68 97 01/19/19 06:00 96 H 20 118/72 96 01/19/19 05:30 91 H 20 107/67 95 01/19/19 05:01 95 H 20 110/68 95 01/19/19 04:30 100 H 22 111/66 96 01/19/19 04:11 37.6 C H 109/61 01/19/19 04:07 100 H 24 96 01/19/19 03:24 100 H 20 123/73 97 01/19/19 02:00 95 H 125/74 98 01/19/19 00:22 100 H 102/70 100 Resident Activity Tracking Resident Involvement: Resident Care Provided Care Provided: Adult Hospital Medicine
[2019-01-19] MEDS ORDERED: AZITHROMYCIN 500 MG in DEXTROSE 5% 250 ML IV ONE (10:30)
--- NOTE | 2019-01-19 10:30 | Procedure Note ---
Procedure Note Date of Service January 19, 2019 Procedure Date: Noted above Procedure: Lumbar puncture Pre-procedure Diagnosis: Acute encephalopathy concern for meningitis secondary to febrile illness Post-procedure Diagnosis: same as above Prior to Procedure: Informed Consent: The risks, benefits, indications, potential complications, an d alternatives were explained to the [patient/family] and informed consent obtained. Attending Staff: Elaine Srinivasan DO Resident/Physician Head Of Geography: Surjit The identity of the patient was confirmed and a bedside time out was performed. Description of Procedure: Patient was positioned in the left lateral decubitus position, prepped and draped in usual sterile fashion. The L4-5 space located with bilateral iliac crests as landmarks. 1% Lidocaine without epinephrine was used to anesthetize the area. A 20 gauge spinal needle was introduced into the subarachnoid space. Stylet was removed with appropriate fluid return. Needle removed after adequate fluid collected and sterile bandage placed at puncture site. 5 mL of CSF fluid collected. Fluid was clear. Specimen(s): sent for Gram Stain, culture, cell count, glucose, protein Cryptococcus antigen Complications: none Findings: Clear CSF no obvious signs of meningitis Estimated Blood Loss: trace Coding
--- NOTE | 2019-01-19 11:04 | Procedure Note ---
EEG Procedure Note Date of Service January 19, 2019 Start / End Times Start Time: 8:43 AM End Time: 9:03 AM Referring Physician Miguel Allen History This is a 28-year-old male who presented with a seizure-like event and unresponsiveness. EEG for further evaluation of seizure. Patient was given Ativan prior to admission. Home Medication List Home Medications Medication Instructions Recorded Confirmed Type clozapine 200 mg PO HS #30 tab 06/07/18 01/18/19 Rx sertraline 75 mg PO QAM #30 tab 06/07/18 01/18/19 Rx Inpatient Medication List Lactated Ringer's (Lr) 1,000 mls @ 125 mls/hr IV .Q8H LINO Stop: 01/19/19 15:14 Last Infusion: 01/19/19 10:35 Dose: 125 mls/hr Documented by: [id number] Infusion: 01/19/19 10:26 Dose: 0 mls/hr Documented by: [id number] Admin: 01/19/19 07:35 Dose: 125 mls/hr Documented by: [id number] Azithromycin 500 mg/ Dextrose 255 mls @ 127.5 mls/hr IV NOW ONE Stop: 01/19/19 12:29 Last Admin: 01/19/19 10:29 Dose: 127.5 mls/hr Documented by: [id number] Sertraline HCl (Zoloft) 75 mg PO QAM LINO Stop: 02/18/19 08:59 Last Admin: 01/19/19 07:27 Dose: Not Given Documented by: [id number] Discontinued Medications Clozapine (Clozapine) 200 mg PO NOW STA Stop: 01/18/19 20:24 Last Admin: 01/18/19 21:08 Dose: 200 mg Documented by: [id number] Sodium Chloride (Nss 1000ml) 1,000 mls @ 999 mls/hr IV .Q1H1M ONE Stop: 01/18/19 23:48 Last Infusion: 01/19/19 00:36 Dose: 0 mls/hr Documented by: [id number] Admin: 01/18/19 23:02 Dose: 999 mls/hr Documented by: [id number] Vancomycin HCl 2,000 mg/ (Sodium Chloride) 540 mls @ 200 mls/hr IV NOW ONE; Protocol Stop: 01/19/19 11:41 Last Admin: 01/19/19 10:27 Dose: Not Given Documented by: Parenteral Electrolytes (Normosol-R) 1,000 mls @ 999 mls/hr IV .Q1H1M ONE Stop: 01/19/19 10:04 Last Infusion: 01/19/19 10:26 Dose: 0 mls/hr Documented by: Admin: 01/19/19 09:25 Dose: 999 mls/hr Documented by: Dexamethasone Sodium Phosphate (10 mg/ Syringe) 2.5 mls @ 1 mls/min IV NOW ONE Stop: 01/19/19 09:32 Last Admin: 01/19/19 10:28 Dose: 1 mls/min Documented by: Lidocaine HCl (Xylocaine 1% (Local)) Confirm Administered Dose 20 ml .ROUTE .ST-MED ONE Stop: 01/19/19 09:56 Last Admin: 01/19/19 09:55 Dose: 10 ml Documented by: Midazolam HCl (Versed) 2 mg IV NOW STA Stop: 01/19/19 09:16 Last Admin: 01/19/19 10:25 Dose: 2 mg Documented by: Midazolam HCl (Versed) Confirm Administered Dose 2 mg .ROUTE .STK-MED ONE Stop: 01/19/19 09:17 Last Admin: 01/19/19 10:25 Dose: Not Given Documented by: Midazolam HCl (Versed) 2 mg IV NOW STA Stop: 01/19/19 10:24 Last Admin: 01/19/19 10:33 Dose: 2 mg Documented by: Naloxone HCl (Narcan) Confirm Administered Dose 0.4 mg .ROUTE .[facility]-MED ONE Stop: 01/19/19 03:37 Last Admin: 01/19/19 03:46 Dose: 0.8 mg Documented by: [id number] Naloxone HCl (Narcan) Confirm Administered Dose 1.2 mg .ROUTE .STK-MED ONE Stop: 01/19/19 03:39 Last Admin: 01/19/19 03:46 Dose: 1.2 mg Documented by: [id number] Sertraline HCl (Zoloft) 75 mg PO NOW ONE Stop: 01/18/19 20:23 Last Admin: 01/18/19 21:08 Dose: 75 mg Documented by: [id number] Description This is a 21 electrode EEG with a single channel dedicated to limited EKG. The electrodes were placed in accordance with the International 10-20 system. There was frequent P3 and CZ electrode pop artifact At the start of this recording the patient was in the sleep state. Sleep was indicated by symmetric sleep spindles and vertex waves. No wakeful state was recorded. There is no state changes. There was occasional to rare F3/C3 high amplitude sharp and after going slow waves with a field mostly to the left hemisphere. Interpretation This is an abnormal routine EEG secondary to: 1) occasional to rare left frontocentral sharp waves 2) no wakeful state was recorded. This was mostly an asleep EEG. There was no electrographic seizures. Clinical Correlation This EEG indicates an increased epileptogenic potential in the left frontocentral area.
--- NOTE | 2019-01-19 11:11 | Neurology Consultation ---
Date of Consultation January 19, 2019 Assessment & Plan (1) Altered mental state: Altered mental status/encephalopathy occurring in the context of noncompliance with psychiatric medications, lack of sleep for several days, auditory hallucinations (active psychosis), possible seizure immediately prior to presentation, and restarting outpatient psychiatric medications including clozapine and sertraline late last night. Meningitis or encephalitis seems unlikely. Follow-up with results of lumbar puncture. Would also recommend a brain MRI with and without contrast to exclude stroke or other acute process. I would hold on starting an anticonvulsant at this time. Continue to monitor patient's clinical status. If he has another seizure would load with Depakote IV, 1.5 g and consider transfer to a tertiary center for status epilepticus. History of Present Illness Reason for Consultation: Confusion and fever Requesting Physician: Dr. Flores Attending Physician: Nancy Moore, History of Present Illness The patient is a 28-year-old Citizen Of [place] male with a history of schizophrenia and prior suicide attempt with medication overdose who lives in a assisted. He presented to the emergency department yesterday with altered mental status. He had reportedly stopped taking his psychiatric medications and has not slept for several days. He may have had a seizure prior to arrival in the emergency department and was administered lorazepam. He had reported some auditory hallucinations as well. The patient had apparently fallen asleep while in the emergency department after receiving some medications. He has been very difficult to arouse and was unresponsive to verbal or painful stimulation. The patient was unable to provide any details at the time of my assessment of him this morning as he was poorly responsive at that time. Allergies Allergy/AdvReac Type Severity Reaction Status Date / Time No Known Allergies Allergy Unverified 05/14/18 10:35 Home Medications Home Medications Medication Instructions Recorded Confirmed Type clozapine 200 mg PO HS #30 tab 06/07/18 01/18/19 Rx sertraline 75 mg PO QAM #30 tab 06/07/18 01/18/19 Rx Patient History Medical History Eosinophilia Depression (Acute) Suicide attempt Tic Metabolic encephalopathy Schizophrenia Social History Communication Ability: unrespons Beliefs That Will Affect Care: None Current Living Situation: Other Feels Safe at Home: No Smoking Status: Never smoker Cigarettes Per Day: Patient unresponsive at this time Smoking End Date: Patient unresponsive at this time Hx Alcohol Use: No (Patient unresponsive at this time) Hx Substance Use: No (Patient unresponsive at this time) Review of Systems Review of Systems: A review of systems cannot be obtained as the patient was poorly responsive. Physical Exam Physical Exam: The neurological examination was significantly limited as this patient was poorly responsive. He is a well-developed, well-nourished adult male. Memory, attention, speech, fund of knowledge, and other higher integrative functions cannot be assessed. Visual singh and acuity could not be assessed. Pupils round, equal, and minimally reactive to light. Eye movements could not be assessed although oculocephalic reflexes intact. No gaze preference. No nystagmus. Corneal reflexes intact. Facial strength could not be fully assessed although there was no obvious facial droop or flattening of the nasolabial fold. Hearing could not be assessed. Patient did not respond to loud auditory stimulation. Movement of the tongue and palate cannot be reliably assessed. Shoulder shrug cannot be assessed. Sensation cannot be reliably as sessed. Deep tendon reflexes could not be reliably assessed although generally intact. Plantar responses downgoing bilaterally. Testing of coordination or dysmetria could not be completed. The patient did not cooperate for direct ophthalmoscopic examination. Carotid pulses normal bilaterally, no bruits to auscultation. Gait and station cannot be assessed. Muscle strength could not be assessed. Muscle tone normal throughout. No rigidity or dystonia. No atrophy. No tremors or other abnormal movements observed. The patient does withdraw his limbs to noxious stimulation. He turns his head and groans to noxious stimulation as well. He did not wake up at the time of my assessment. There was no nuchal rigidity. Results & Data Vital Signs (Past 12 Hours) Vital Signs Temp Pulse Pulse Resp BP BP Pulse Ox 01/19/19 10:36 86 14 108/61 96 01/19/19 10:30 82 16 135/70 96 01/19/19 10:19 84 17 124/65 96 01/19/19 10:14 85 16 132/79 01/19/19 10:12 78 18 105/63 01/19/19 10:10 87 18 110/66 01/19/19 10:08 90 18 97/64 L 01/19/19 10:06 87 18 103/66 01/19/19 10:04 87 19 102/71 01/19/19 10:02 92 H 20 96/59 L 01/19/19 10:00 92 H 24 97/67 L 01/19/19 09:58 92 H 12 106/70 01/19/19 09:45 75 16 115/68 99 01/19/19 09:31 36.9 C 95 H 15 147/83 H 01/19/19 07:41 37.8 C H 89 16 116/70 96 01/19/19 06:51 37.1 C 89 18 103/68 97 01/19/19 06:00 96 H 20 118/72 96 01/19/19 05:30 91 H 20 107/67 95 01/19/19 05:01 95 H 20 110/68 95 01/19/19 04:30 100 H 22 111/66 96 01/19/19 04:11 37.6 C H 109/61 01/19/19 04:07 100 H 24 96 01/19/19 03:24 100 H 20 123/73 97 01/19/19 02:00 95 H 125/74 98 01/19/19 00:22 100 H 102/70 100 Laboratory Results Labs completed this morning reviewed. WBC 15.07, hemoglobin 14.1, platelet count 298, sodium 140, potassium 3.7, BUN 13, creatinine 1.34, glucose 118, magnesium 2.7, transaminases normal, ammonia 22.7, TSH normal, urine tox screen unremarkable. Diagnostic Findings A CT of the head completed yesterday was negative for hemorrhage or acute process. Images and report reviewed. An EEG completed this morning revealed sleep spindles and vertex waves consistent with sleep. There are occasional high amplitude left frontocentral sharps and slow waves potentially consistent with epileptiform abnormalities. There are no electrographic seizures.
[2019-01-19] MEDS: cefTRIAXone SODIUM 2,000 MG in DEXTROSE 5% 50 ML IV SCH (11:18)
[2019-01-19 11:31] LABS: Influenza A virus by PCR Neg for Influ A (Neg); Influenza B virus by PCR Neg for Influ B (Neg)
[2019-01-19 11:46] LABS: Appearance CSF Clear; CSF Count Tube # 3; CSF Xanthrochromic No xanthochromia; Color CSF Colorless; Red Blood Cell CSF (A) 38 /uL (0-); Red Blood Cell CSF (B) 36 /uL (0-); White Blood Cell CSF (A) 0 /uL (0-5); White Blood Cell CSF (B) 0 /uL (0-5)
[2019-01-19 12:35] LABS: INR 1.1 (0.9-1.1); Prothrombin Time 11.2 Seconds (9.0-12.0)
[2019-01-19] MEDS ORDERED: HALOPERIDOL LACTATE 5 MG/ML 1 ML VIAL ONE (13:33)
[2019-01-19] MEDS ORDERED: HALOPERIDOL LACTATE 5 MG/ML 1 ML VIAL IV STA (13:34)
--- NOTE | 2019-01-19 13:37 | CT Scan Report ---
CT chest wo con CT DOSE: 631.91 mGycm HISTORY: Pneumonia infiltrate TECHNIQUE: Multiaxial CT images of the chest were performed without contrast. A dose lowering techni que was utilized adhering to the principles of ALARA. COMPARISON: Chest series 01/19/2019 FINDINGS: Mild cardiomegaly. Several right axillary nodes measuring up to 1.2 cm. Several small benig n-appearing left axillary nodes. Evaluation of lung parenchyma shows a focal parenchymal infiltrate medial aspect right base. Minimal pleural reactive change at the lung bases otherwise with no well-defined left basilar infiltrate. Add itional minimal parenchymal infiltrate superior segment right lower lobe. No evidence for pneumothora x. No significant pulmonary nodularity. No regions of consolidation. Limited evaluation the upper abdomen is unremarkable. IMPRESSION: 1. Small multifocal infiltrates medial aspect right base as well as superior segment right lower lobe . 2. Minimal dependent bibasilar atelectasis with a trace amount of basilar pleural reactive change. 3. Mild cardiomegaly. The above report was generated using voice recognition software. It may contain grammatical, syntax or spelling errors. Electronically signed by: Conrad Khan M.D. 01/19/2019 1:35 PM
[2019-01-19] MEDS: cloZAPine 100 MG TAB PO SCH (20:44)
[2019-01-19] MEDS: NORMOSOL-R 1,000 ML IV SCH (20:45)
[2019-01-20 04:55] LABS: Basophils # (auto) 0.01 K/uL (0-0.2); Basophils % (auto) 0.1 %; Eosinophils # (auto) 0.01 K/uL (0-0.5); Eosinophils % (auto) 0.1 %; Hematocrit (blood only) 36.2 % (42-52); Hemoglobin 12.7 g/dL (14.0-18.0); Immature Granulocytes # (auto) 0.05 K/uL (0.00-0.02); Immature Granulocytes % (auto) 0.3 %; Lymphocytes # (auto) 1.81 K/uL (1.2-3.4); Lymphocytes % (auto) 11.1 %; Mean Corpuscular Hgb Conc 35.1 g/dL (32-36); Mean Corpuscular Volume 87.2 fL (80-100); Mean Platelet Volume 10.5 fL (7.4-10.4); Monocytes # (auto) 1.41 K/uL (0.11-0.59); Monocytes % (auto) 8.6 %; Neutrophils # (auto) 13.09 K/uL (1.4-6.5); Neutrophils % (auto) 79.8 %; Platelet Count 266 K/uL (130-400); RDW Coefficient of Variation 14.2 % (11.5-14.5); RDW Standard Deviation 45.2 fL (36.4-46.3); Red Blood Count 4.15 M/uL (4.7-6.1); White Blood Count 16.38 K/uL (4.8-10.8)
[2019-01-20 05:06] LABS: BUN Creatinine Ratio 9.4 (10-20); Calcium 8.6 mg/dl (8.5-10.1); Est GFR (African American) 106.8; Est GFR (Non-African American) 92.2; Magnesium 2.5 mg/dl (1.8-2.4); Potassium 3.9 mmol/L (3.5-5.1)
[2019-01-20 05:45] LABS: Phosphorus 2.9 mg/dl (2.5-4.9)
[2019-01-20] MEDS: cefTRIAXone SODIUM 2,000 MG in DEXTROSE 5% 50 ML IV SCH (07:42)
[2019-01-20] MEDS: SERTRALINE HCL 50 MG TABLET PO SCH (07:43)
[2019-01-20] MEDS: ENOXAPARIN INJ 40 MG/0.4 ML SYR SQ SCH (07:43)
--- NOTE | 2019-01-20 09:04 | Critical Care Progress Note ---
Date of Service January 20, 2019 Assessment & Plan (1) Altered mental state: Reason Critically Ill: Lalita is a 28-year-old male with history of paranoid schizophrenia who was admitted to the ICU for altered mental status. Neuro - Alerted Mental Status Paranoid Schizophrenia - Complex medical history with multiple hospitalization related to mental illness. Reportedly noncompliant with antipsychotics prior to admission. Following last admission had been flown to [place] for family support. Last on clozapine and sertraline. - LP revealed clear, colorless CSF without xanthochromia. WBC 0 RBC 38 glucose 82 total protein 58. Fungal culture pending, CSF culture pending with negative Gram stain, negative acid-fast smear with acid-fast culture pending, negative cryptococcal antigen. Blood culture x2 pending no growth to date. - Clozapine 200mg qHS, sertraline 75 mg daily MRI brain pending to evaluate potential structural disease contributing to his acute presentation -While his mental status has improved and he follows commands he has a restricted affect with concern for acute psychosis. Denies active hallucinations auditory/visual at this time. Psychiatry consulted Cardiac - - No cardiac history - EKG with NSR and no signs of QTc in setting of antipsychotic treatment. Respiratory - PNA vs atelectasis - CT-C shows small multifocal infiltrates medial RLL and superior RLL - Leukocytosis to 16.3 today Received empiric azithromycin, ceftriaxone now converted to oral Augmentin twice daily Breathing comfortably on room air, no respiratory distress GI - Regular diet Normosol IVF discontinued with adequate oral intake RENAL/LYTES - No significant electrolyte derangement. Replace lytes as needed. - -No dysuria, 1200 cc urine output, 0.53 cc/KG/HR ENDO - No history of DM or metabolic syndrome Glucose adequately controlled HEME - Stable H&H. Risk of myelosuppression 2/2 cloazpine. Continue to follow, no signs at this time Will monitor for any drops in the setting of Lovenox prophylaxis ID - LP Completed, meningitis workup as noted above. Community-acquired pneumonia treatment as noted above Leukocytosis to 16.3 today INTEGUMENTARY - No lesions/findings at this time LINES/IV ACCESS - PIVs intact. DVT PROPHYLAXIS - Lovenox 40mg SQ daily His mental status is improved, appropriate for downgrade from ICU today. Thank you for allowing us to be part of this patient's care. Please refer to Dr. Shippert's documentation for any further recommendations. Supervising Physician Co-Signing Physician Notes Dr. Eddy was resident physician during care of patient. I separately evaluated patient for pereira portions of the history and the exam. I was present during the critical portion of medical decision making, and I discussed the case with the resident. I generally agree with the findings and plan. Significant improvement in mental status. He does exhibit signs of acute psychosis of hyper religiosity. Convert antibiotics to Augmentin for pulmonary coverage, avoiding macrolides and fluoroquinolones for QT prolonging agent as the patient will need to be restarted on antipsychotics. He is stable for downgrade out of the ICU, mental health has been notified to start their formal evaluation. Will continue with MRI given findings on EEG as there may be underlying structural disease that needs further elucidation. Danyell Celis is asleep but easily arousable on visit this morning, is hungry and ate breakfast during visit. Reports he feels "fine ". Gives mostly short yes/no answers to questions. Denies confusion, headache, pain, weakness. Reports he feels a little short of breath denies difficulty breathing. Denies auditory and visual hallucinations. Review of Systems Review of Systems: Constitutional: Denies fever, chills ENT: Denies neck pain, ear pain Cardiovascular: Denies Chest pain, chest pressure, palpitations Respiratory: Endorses mild shortness of breath. Denies cough, sputum production, difficulty breathing Gastrointestinal: Denies abdominal pain, nausea, vomiting, constipation, dahlia rrhea. Endorses he is hungry. Genitourinary: Denies pain with urination Musculoskeletal: Denies weakness, muscle aches/pain, joint aches/pain Integumentary:Denies rash, lesions, bruising Neurological: Denies headache Psychiatric: Denies auditory/visual hallucinations. Denies thoughts of self- harm. Physical Exam Physical Exam: General: Alert and oriented to name, town, year. Not oriented to day, month off by -1. NAD. Cooperative. HEENT: Atraumatic, normocephalic. Neck supple, no meningismus. Pulm: Moderate air movement. CTAB A&P. -wheezes, -rales, -rhonchi. Symmetrical chest rise. No increase work of breathing. No respiratory distress. Cardiac: RRR, -mrg. Radial pulses intact and symmetrical. Abdominal: Nontender, nondistended, soft. BS present. Neuro: Pupils equal and reactive to light. Moving all extremities equally. Psychiatric. Withdrawn, guarded affect. Poverty of speech with normal volume. Does not make eye contact. Does not appear to be responding to internal stimuli. Mood is "good."Unable to access thought content/linearity of thought given poverty of speech. Results & Data Vital Signs (Past 12 Hours) Vital Signs Temp Pulse Resp BP Pulse Ox 01/20/19 06:00 69 103/59 L 96 01/20/19 05:01 114 H 103/83 97 01/20/19 04:00 36.8 C 114 H 100/48 L 96 01/20/19 03:00 122 H 129/59 L 98 01/20/19 02:00 103 H 106/57 L 94 01/20/19 01:30 109 H 125/65 96 01/20/19 01:01 102 H 139/79 97 01/20/19 00:31 79 127/68 99 01/20/19 00:00 76 116/59 L 95 01/19/19 23:30 78 111/58 L 95 01/19/19 23:01 68 115/65 100 01/19/19 22:59 77 01/19/19 22:00 85 118/64 94 01/19/19 21:00 130 H 20 123/68 99 01/19/19 20:00 36.5 C 79 18 128/74 99 01/19/19 19:00 86 117/70 97 Laboratory Results 01/20/19 01/20/19 01/20/19 Range/Units 04:14 04:11 04:11 WBC 16.38 H (4.8-10.8) K/uL RBC 4.15 L (4.7-6.1) M/uL Hgb 12.7 L (14.0-18.0) g/dL Hct 36.2 L (42-52) % MCV 87.2 (80-100) fL MCH 30.6 (25-34) pg MCHC 35.1 (32-36) g/dL RDW Std Deviation 45.2 (36.4-46.3) fL RDW Coeff of Tawanna 14.2 (11.5-14.5) % Plt Count 266 (130-400) K/uL MPV 10.5 H (7.4-10.4) fL Immature Gran % (Auto) 0.3 % Neut % (Auto) 79.8 % Lymph % (Auto) 11.1 % [place] % (Auto) 8.6 % Eos % (Auto) 0.1 % Baso % (Auto) 0.1 % Immature Gran # (Auto) 0.05 H (0.00-0.02) K/uL Neut # (Auto) 13.09 H (1.4-6.5) K/uL Lymph # (Auto) 1.81 (1.2-3.4) K/uL [place] # (Auto) 1.41 H (0.11-0.59) K/uL Eos # (Auto) 0.01 (0-0.5) K/uL Baso # (Auto) 0.01 (0-0.2) K/uL PT (9.0-12.0) Seconds INR (0.9-1.1) Sodium 142 (136-145) mmol/L Potassium 3.9 (3.5-5.1) mmol/L Chloride 110 H (98-107) mmol/L Carbon Dioxide 27 (21-32) mmol/L Anion Gap 5.0 (3-11) BUN 10 (7-18) mg/dl Creatinine 1.10 (0.6-1.4) mg/dl Est Cr Clr Drug Dosing 108.0 ml/min Est GFR ( Amer) 106.8 Est GFR (Non-Af Amer) 92.2 BUN/Creatinine Ratio 9.4 L (10-20) Glucose 115 H (70-99) mg/dl POC Glucose 108 H (70-99) Calcium 8.6 (8.5-10.1) mg/dl Phosphorus 2.9 D (2.5-4.9) mg/dl Magnesium 2.5 H (1.8-2.4) mg/dl CSF Appearance CSF Color Xanthrochromic CSF WBC (0-5) /uL CSF RBC (0-) /uL CSF Cell Count Tube # Nasal Screen MRSA (PCR) (Negative) Influenza Type A (PCR) (Neg) Influenza Type B (PCR) (Neg) 01/19/19 01/19/19 01/19/19 Range/Units Unknown 19:15 11:26 WBC (4.8-10.8) K/uL RBC (4.7-6.1) M/uL Hgb (14.0-18.0) g/dL Hct (42-52) % MCV (80-100) fL MCH (25-34) pg MCHC (32-36) g/dL RDW Std Deviation (36.4-46.3) fL RDW Coeff of Tawanna (11.5-14.5) % Plt Count (130-400) K/uL MPV (7.4-10.4) fL Immature Gran % (Auto) % Neut % (Auto) % Lymph % (Auto) % [place] % (Auto) % Eos % (Auto) % Baso % (Auto) % Immature Gran # (Auto) (0.00-0.02) K/uL Neut # (Auto) (1.4-6.5) K/uL Lymph # (Auto) (1.2-3.4) K/uL Osage # (Auto) (0.11-0.59) K/uL Eos # (Auto) (0-0.5) K/uL Baso # (Auto) (0-0.2) K/uL PT (9.0-12.0) Seconds INR (0.9-1.1) Sodium (136-145) mmol/L Potassium (3.5-5.1) mmol/L Chloride (98-107) mmol/L Carbon Dioxide (21-32) mmol/L Anion Gap (3-11) BUN (7-18) mg/dl Creatinine (0.6-1.4) mg/dl Est Cr Clr Drug Dosing ml/min Est GFR ( Amer) Est GFR (Non-Af Amer) BUN/Creatinine Ratio (10-20) Glucose (70-99) mg/dl POC Glucose 109 H 120 H (70-99) Calcium (8.5-10.1) mg/dl Phosphorus (2.5-4.9) mg/dl Magnesium (1.8-2.4) mg/dl CSF Appearance CSF Color Xanthrochromic CSF WBC (0-5) /uL CSF RBC (0-) /uL CSF Cell Count Tube # Nasal Screen MRSA (PCR) (Negative) Influenza Type A (PCR) Neg for Influ A (Neg) Influenza Type B (PCR) Neg for Influ B (Neg) 01/19/19 01/19/19 01/19/19 Range/Units 10:15 09:20 08:50 WBC (4.8-10.8) K/uL RBC (4.7-6.1) M/uL Hgb (14.0-18.0) g/dL Hct (42-52) % MCV (80-100) fL MCH (25-34) pg MCHC (32-36) g/dL RDW Std Deviation (36.4-46.3) fL RDW Coeff of Tawanna (11.5-14.5) % Plt Count (130-400) K/uL MPV (7.4-10.4) fL Immature Gran % (Auto) % Neut % (Auto) % Lymph % (Auto) % [place] % (Auto) % Eos % (Auto) % Baso % (Auto) % Immature Gran # (Auto) (0.00-0.02) K/uL Neut # (Auto) (1.4-6.5) K/uL Lymph # (Auto) (1.2-3.4) K/uL Os[place] # (Auto) (0.11-0.59) K/uL Eos # (Auto) (0-0.5) K/uL Baso # (Auto) (0-0.2) K/uL PT 11.2 (9.0-12.0) Seconds INR 1.1 (0.9-1.1) Sodium (136-145) mmol/L Potassium (3.5-5.1) mmol/L Chloride (98-107) mmol/L Carbon Dioxide (21-32) mmol/L Anion Gap (3-11) BUN (7-18) mg/dl Creatinine (0.6-1.4) mg/dl Est Cr Clr Drug Dosing ml/min Est GFR ( Amer) Est GFR (Non-Af Amer) BUN/Creatinine Ratio (10-20) Glucose (70-99) mg/dl POC Glucose (70-99) Calcium (8.5-10.1) mg/dl Phosphorus (2.5-4.9) mg/dl Magnesium (1.8-2.4) mg/dl CSF Appearance Clear CSF Color Colorless Xanthrochromic No xanthochromia CSF WBC 0 (0-5) /uL CSF RBC 38 (0-) /uL CSF Cell Count Tube # 3 Nasal Screen MRSA (PCR) Negative (Negative) Influenza Type A (PCR) (Neg) Influenza Type B (PCR) (Neg) Medications Administered Current Inpatient Medications Amoxicillin/Clavulanate Potassium (Augmentin 875mg) 1 tab [facility] Stop: 01/25/19 23:59 Last Admin: 01/20/19 09:52 Dose: 1 tab Documented by: Clozapine (Clozapine) 200 mg PO [facility]; Protocol Stop: 02/18/19 20:59 Last Admin: 01/19/19 20:44 Dose: Not Given Documented by: Enoxaparin Sodium (Lovenox) 40 mg SQ [facility] Stop: 02/19/19 08:59 Last Admin: 01/20/19 07:43 Dose: 40 mg Documented by: Sertraline [facility] ([facility]ft) [facility] Stop: 02/18/19 08:59 Last Admin: 01/20/19 07:43 Dose: 75 mg Documented by: Resident Activity Tracking Resident Involvement: Resident Care Provided Care Provided: Adult Hospital Medicine (1) Altered mental state Altered mental status type: unspecified Qualified Code(s): R41.82 - Altered mental status, unspecified
[2019-01-20] MEDS: AMOXICILLIN/CLAVULANATE 875 MG TAB PO SCH ×2 (09:52→17:02)
[2019-01-20] MEDS ORDERED: AZITHROMYCIN 250 MG in DEXTROSE 5% 250 ML IV SCH (10:00)
[2019-01-20] MEDS: NORMOSOL-R 1,000 ML IV SCH (11:16)
--- NOTE | 2019-01-20 17:57 | Psychiatric Consultation ---
Date of Consultation January 20, 2019 Impression / Recommendations Impression 28-year-old male admitted medically for altered mental status. His condition deteriorated and he required transfer to the ICU for ongoing treatment. Pt's mental status had improved, and he appears stable today. Pt is known to our service form pervious admissions. He has a history of schizophrenia, but is denying any active auditory or visual hallucinations. He denies SI/HI and SIB at states he has been taking his medication as prescribed. Given patient's reports on his condition and improvement in mental status, there is no criteria for inpatient psychiatric admission. Collateral information was obtained from his child welfare caseworker, Neda Acevedo, who verbalized that the patient has had recent changes to his work schedule and feels he may be have adjusted dosing of his psychiatric medications to reduce sedation at work; but according to her knowledge he has been compliant. She states the patient has reported to her visual hallucinations of "seeing people growing" and has been hearing "people from the government". She states the patient has not been suicidal or homicidal and she denies any concern with the patient returning [place] [facility] [place] secure [place]. She does not feel patient is a harm to himself or others. Given lack of sufficient criteria for inpatient psychiatric admission, would suggest ongoing medical treatment per primary team, with discharge back to his long-term when felt to be medically cleared. Pt has an outpatient psychiatrist and therapist whom he sees regularly, reporting compliance with these visits and medications. Dr. Debbi Escobedo was directly involved in review and discussion of the patient's case and participated in medical decision making regarding treatment recommendations. Risk Factors Assessment Do You Have Access To A Gun?: No CPT Code Initial Consultation: [id number] Psych History Identifying Data 28-year-old male admitted medically on 01/19/19 due to altered mental status. PMH of schizophrenia, depression, and tic. Psychiatric consultation was requested once mental status cleared, to assess symptoms of schizophrenia with concern for medication non-compliance. Information is gathered from hospital documentation, the patient himself, and collateral from his child welfare caseworker - the combination of the three are considered to be reliable. Chief Complaint "I'm not really sure, they say sleep problems." (referring to reason for his admission) History of Present Illness 28-year-old male admitted medically on 01/19/19 due to altered mental status. Seizure behavior was reported prior to admission, and it was questioned if patient had been compliant with his psychiatric medications. Pt has a history of schizophrenia and is known to us from previous psychiatric admissions. Psychiatric consultation was requested once mental status cleared, to assess symptoms of schizophrenia with concern for medication non-compliance. Pt was seen today after reviewing case with psychiatric liaison nurse. Pt is cooperative with interview, but answers questions with brief responses. Pt states he is not entirely sure how he ended up in the hospital, but reports he is feeling much better. Pt states he has been compliant with his medications and is able to confirm doses of his home med list. He admits to routine appointments with a psychiatrist and therapist and states he is compliant with these visits. Pt does admit that he has been working extra shifts, but states this has not affected his usual sleep duration of 5-6 hours. Pt denies a significant change in mood, anxiety, energy level, sleep, or appetite. He denies SI/HI, and denies any auditory or visual hallucinations. Pt states he is planning to return to his long-term at discharge and feels physically ready for this. Pt denies SI, HI, SIB, A/V hallucinations, paranoia, and other specific psychiatric symptoms. Collateral information was obtained from patient's child welfare caseworker by psychiatric liaison nurse. See note on chart for additional information. In summary, child welfare caseworker states the patient has been working more often due to being low on staff. She believes the patient has been compliant with his medications, but feels he may be adjusting the dosing (referring to time of day) to reduce sedation at work. She states he has made some reports of auditory and visual hallucinations, but feels that these are not distressing. She does not believe the patient to be a risk of harm to himself and states he is able to return to the long-term on discharge. Past Psychiatric History Previous Psych History: History of schizophrenia, previous hospitalization for 8 months at [facility]. Pt was discharged to the [facility] where he continues to reside. Current Psychiatric Diagnosis: Schizophrenia, Depression, Tic Outpatient Services: Pt unsure at time of assessment; has most recently been seen at [facility] - taking the [facility] van to appointments Previous Psych Admissions: [place] (10/16/2016 - 12/31/2016, transferred to [facility] (04/2015, 04/2018), other (12/31/2016 -09/03/2017, [place] [facility] Do You Have Access To A Gun?: No History of Previous Suicide Attempt: Yes Describe Attempts in the Past: multiple overdoses Past Medication Trials: citalopram, clozapine, and sertraline Allergies Allergy/AdvReac Type Severity Reaction Status Date / Time No Known Allergies Allergy Unverified 05/14/18 10:35 Home Medications Home Medications Medication Instructions Recorded Confirmed Type clozapine 200 mg PO HS #30 tab 06/07/18 01/18/19 Rx sertraline 75 mg PO QAM #30 tab 06/07/18 01/18/19 Rx Substance Abuse History Denies Personal History Living Arrangements: [facility] [place] Born In: [place] Beliefs That Will Affect Care: None Patient History Medical History Eosinophilia Depression (Acute) Suicide attempt Tic Metabolic encephalopathy Schizophrenia Social History Communication Ability: Impaired Beliefs That Will Affect Care: None Current Living Situation: Other Feels Safe at Home: No Smoking Status: Never smoker Cigarettes Per Day: Patient unresponsive at this time Smoking End Date: Patient unresponsive at this time Hx Alcohol Use: No (Patient unresponsive at this time) Hx Substance Use: No (Patient unresponsive at this time) Physical Exam Psychiatric: Orientation: alert, oriented x 3, cooperative (superficially) and + guarded Apperance: appropriately dressed, appropriately groomed and appeared stated age Eye Contact: + poor eye contact (frequently looking away from this provider) Motor Behavior: no abnormal motor movements (observed while laying in bed) Speech: normal rate/rhythm/volume of speech (minimally productive) Stutter - known from past psychiatric admissions Affect: + flat affect; no depressed affect and no anxious affect "I'm fine" and "no problem" Thought Process: clear/coherent thought process and + concrete thought process Limited participation in interview, answering in one-word responses; however, does not demonstrate signficant thought blocking, he coherent, and association is intact Thought Content: reality based without delusions (at time of interview - some delusional behavior reported by case operator) Suicidal Thoughts: denies suicidal thoughts and denies suicidal plan Homicidal Thoughts: denies homicidal thoughts Hallucinations: no auditory hallucinations and no visual hallucinations Cognition: recent memory grossly intact, remote memory grossly intact, attention grossly intact and language grossly intact Estimated Intelligence: consistent with education level Insight: + fair insight (limited in some ways by chronic disease process) Judgement: + fair judgement (limited in some ways by chronic disease process) Vital Signs (Past 24 Hours): Last Vital Signs Temp 36.8 C 01/20/19 04:00 Pulse 69 01/20/19 06:00 Resp 20 01/19/19 21:00 BP 103/59 L 01/20/19 06:00 Pulse Ox 96 01/20/19 06:00 Review of Systems Constitutional: denied Cardiovascular: denied Respiratory: denied Gastrointestinal: denied Neurological: denied Psychiatric: denies symptoms other than stated above Total of at least 10 systems reviewed, pertinent positives as above and in HPI. Results & Data Medications Administered Amoxicillin/Clavulanate Potassium (Augmentin 875mg) [facility] Stop: 01/25/19 23:59 Last Admin: 01/20/19 09:52 Dose: 1 tab Documented by: [id number] Clozapine (Clozapine) 200 mg PO [facility]; Protocol Stop: 02/18/19 20:59 Last Admin: 01/19/19 20:44 Dose: Not Given Documented by: [id number] Enoxaparin Sodium (Lovenox) 40 mg SQ [facility] Stop: 02/19/19 08:59 Last Admin: 01/20/19 07:43 Dose: 40 mg Documented by: [id number] Sertraline HCl (Zoloft) 75 mg PO [facility] Stop: 02/18/19 08:59 Last Admin: 01/20/19 07:43 Dose: 75 mg Documented by: [id number] Admin: 01/19/19 07:27 Dose: Not Given Documented by: [id number]
[2019-01-20] MEDS: cloZAPine 100 MG TAB PO SCH (20:39)
[2019-01-20] MEDS ORDERED: LORazepam 1 MG/2 ML VIAL IV PRN (20:43)
--- NOTE | 2019-01-20 22:17 | Hospitalist Progress Note ---
Date of Service January 20, 2019 Assessment & Plan (1) Metabolic encephalopathy: Initally there was concern over possible menigitits. Neurolgoy does not believe this is the case. Lumbar puncture confirms that this was not the case either. Stopped IV antibiotics, will place patient on augmentin Will transfer to medical. (2) Schizophrenia: Patient with schizophrenia maintained on Clozapine. ?compliance with his medications. Report of auditory hallucinations prior to arrival. Patient with neutrophil predominant leukocytosis on CBC. Eosinophilia resolved -Continue Clozapine -reordered psych consult (3) Depression: Chronic -Continue Sertraline -Psychiatry consultation as above Spent 25 minutes in management of patient. Subjective This is a pleasant 28-year-old male who is more awake. He frequently asks if he can be discharged. Currently has no complaints. Patient denies any fever chills nausea or vomiting. Patient asks what occurred and he was updated. Discussed with program attendant. Patient is okay for transfer out of unit okay for discharge but will await determination by psychiatry if patient requires inpatient psych Review of Systems Review of Systems: All systems reviewed & are unremarkable except as noted in HPI & below Physical Exam Constitutional: WD/WN, vitals as above well developed Eyes: PERRL, conjunctivae normal, anicteric sclerae Neck: trachea midline, no thyromegaly Respiratory: normal respiratory effort, lungs clear to auscultation Cardiovascular: RRR, no murmur, no edema Gastrointestinal (Abdomen): normal bowel sounds, soft, nontender, no hepatosplenomegaly Skin: no rashes, warm and dry Neurologic: PERRL, EOMI, accommodation nl, no face palsy, no dysarthria Psychiatric: Orientation: alert and cooperative Lymphatic: no cervical or axillary lymphadenopathy Results & Data Vital Signs (Past 12 Hours) Vital Signs Temp Pulse Pulse Resp BP BP Pulse Ox 01/20/19 16:58 37.3 C 78 18 130/81 95 01/20/19 15:24 78 01/20/19 15:00 36.9 C 91 H 25 H 125/76 97 01/20/19 13:59 93 H 25 H 130/78 01/20/19 13:00 84 19 01/20/19 12:01 36.9 C 105 H 18 125/76 01/20/19 12:00 115 H 19 99 01/20/19 11:00 110 H 19 145/73 H (1) Depression Depression Type: unspecified Qualified Code(s): F32.9 - Major depressive dis order, single episode, unspecified (2) Schizophrenia Schizophrenia type: unspecified Qualified Code(s): F20.9 - Schizophrenia, unspecified
[2019-01-21] MEDS: AMOXICILLIN/CLAVULANATE 875 MG TAB PO SCH (07:41)
[2019-01-21] MEDS: SERTRALINE HCL 50 MG TABLET PO SCH (07:41)
[2019-01-21] MEDS: ENOXAPARIN INJ 40 MG/0.4 ML SYR SQ SCH (07:42)
--- NOTE | 2019-01-21 09:46 | Neurology Progress Note ---
Date of Service January 21, 2019 Assessment & Plan (1) Altered mental state: This patient's altered mental status appears to be significantly improved. His lumbar puncture results are normal other than a mild nonspecific elevation in CSF protein. He probably does not have meningitis or encephalitis. His EEG did suggest increased epileptogenic potential in the left frontocentral area. He reportedly had an isolated seizure immediately prior to his presentation. I suspect medication noncompliance and sleep deprivation were triggering factors for this event. He has not had any further witnessed seizures and I would not start an anticonvulsant at this time. If possible, would obtain a brain MRI with and without contrast, seizure protocol to exclude any underlying structural abnormality that may predispose to seizures. Subjective Follow-up for altered mental status The patient is a 28-year-old male who presented with altered mental status in the context of suspected noncompliance with psychiatric medications, persistent lack of sleep, auditory hallucinations (active psychosis), and a possible seizure immediately prior to presentation. He has a history of schizophrenia and lives in a fdc. He was poorly responsive at the time of my initial assessment although he is currently significantly improved. He is currently lying comfortably in bed and does not have any significant complaints. He denies headache, fever, chills, myalgia, or neck stiffness. Additional details as below. Review of Systems Constitutional: no fever, no chills and no weakness Eyes: no blind spots and no diplopia Ear, Nose, Mouth, Throat: no hearing loss Musculoskeletal: no neck pain, no myalgia and no muscle weakness Neurologic: no localized weakness, no paralysis, no numbness, no tremor(s), no abnormal movements and no headache(s) Physical Exam Physical Exam: The patient awakes easily from sleep. He is slightly lethargic although fully oriented. Memory, concentration, and speech pattern are normal. He exhibits a normal comprehension of vocabulary. Visual singh full to confrontation. Visual acuity normal. Pupils equal round reactive to light and accommodation. Eye movements normal. There is no nystagmus. Facial sensation intact. There is no facial droop or weakness. Hearing intact. Palate elevates to midline. Shoulder shrug intact. Tongue protrudes to midline. Sensation intact all modalities in all 4 limbs. Deep tendon reflexes intact and symmetrical for the arms and legs. Plantar responses downgoing. There is no dysdiadochokinesia or dysmetria [id number] or [id number] bilaterally. Patient exhibits normal muscle strength and tone for all 4 limbs. No atrophy. No abnormal movements observed. Results & Data Vital Signs (Past 12 Hours) Vital Signs Temp Pulse Resp BP BP Pulse Ox 01/21/19 06:55 37.2 C 87 20 128/84 100 01/20/19 23:37 36.9 C 98 H 20 138/86 97 Laboratory Results Yesterday's labs reviewed. WBC 16.38, hemoglobin 12.7, hematocrit 36.2, platelet count 266, sodium 142, BUN 10, creatinine 1.10, glucose 115, magnesium 2.5 Lumbar puncture results from January 19 reviewed. CSF appearance clear, colorless, no xanthochromia, CSF WBC 0, CSF RBC 38, CSF glucose 82, CSF total protein 58.0, CSF Gram stain and culture negative, cryptococcal antigen negative, acid-fast bacilli smear negative Diagnostic Findings CT of the head completed January 18, 2019 was unremarkable. No hemorrhage or acute process. EEG completed January 19 revealed occasional to rare left frontocentral sharp waves. No wakeful state recorded. Mostly asleep EEG. Findings potentially consistent with left frontocentral epileptogenic potential. (1) Altered mental state Altered mental status type: unspecified Qualified Code(s): R41.82 - Altered mental status, unspecified
--- NOTE | 2019-01-21 12:25 | Magnetic Resonance Report ---
MR brain wo con HISTORY: 28 years-old Male seizure, acute seizure. COMPARISON: Head CT 01/18/2019. TECHNIQUE: Multiplanar multisequence MRI of the brain was obtained without the use of IV contrast. FINDINGS: No restricted diffusion to suggest acute or subacute infarction. The study is mildly motion degraded. Midline structures including the corpus callosum, brainstem, optic chiasm, pituitary and pineal glan ds appear unremarkable on the sagittal T1 series. No cerebellar tonsillar herniation. The imaged cerv ical spine is unremarkable. Moderate enlargement of the adenoid tonsils results in mild narrowing of the nasopharynx. No acute intracranial hemorrhage, midline shift, abnormal extra-axial collections, hydrocephalus or i ntracranial mass identified. No significant T2/FLAIR signal abnormalities of the brain parenchyma. No valdivia matter heterotopia, acute seizure focus or cortical dysplasia identified. No definite evidence of mesial temporal sclerosis. The major flow voids at the level of the skull base appear patent. Mastoid air cells are generally cl ear. Mild mucosal thickening of the paranasal sinuses, most pronounced within the left frontal sinus. The orbits are unremarkable. The skull and soft tissues are within normal limits. IMPRESSION: 1. Motion degraded exam without acute intracranial abnormality identified. 2. Mild paranasal sinus disease. The above report was generated using voice recognition software. It may contain grammatical, syntax o r spelling errors. Dictated: 01/21/2019 11:45 AM Transcribed: 01/21/2019 12:24 PM Trice [id number] [email or web address] Electronically signed by: Blair Bragg M.D. 01/21/2019 12:37 PM
[2019-01-21 15:29] VITALS: BP 144/83; PULSE 70; TEMP 97.9; O2SAT 95
--- NOTE | 2019-01-28 07:51 | Discharge Summary ---
Date of Service January 21, 2019 Admission HPI Per Admitting Provider 28-year-old male admitted medically on 01/19/19 due to altered mental status. Seizure behavior was reported prior to admission, and it was questioned if patient had been compliant with his psychiatric medications. Pt has a history of schizophrenia and is known to us from previous psychiatric admissions. Psychiatric consultation was requested once mental status cleared, to assess symptoms of schizophrenia with concern for medication non-compliance. Pt was seen today after reviewing case with psychiatric liaison nurse. Pt is cooperative with interview, but answers questions with brief responses. Pt states he is not entirely sure how he ended up in the hospital, but reports he is feeling much better. Pt states he has been compliant with his medications and is able to confirm doses of his home med list. He admits to routine appointments with a psychiatrist and therapist and states he is compliant with these visits. Pt does admit that he has been working extra shifts, but states this has not affected his usual sleep duration of 5-6 hours. Pt denies a significant change in mood, anxiety, energy level, sleep, or appetite. He denies SI/HI, and denies any auditory or visual hallucinations. Pt states he is planning to return to his halfway at discharge and feels physically ready for this. Pt denies SI, HI, SIB, A/V hallucinations, paranoia, and other specific psychiatric symptoms. Collateral information was obtained from patient's telephonic case manager by psychiatric liaison nurse. See note on chart for additional information. In summary, telephonic case manager states the patient has been working more often due to being low on staff. She believes the patient has been compliant with his medications, but feels he may be adjusting the dosing (referring to time of day) to reduce sedation at work. She states he has made some reports of auditory and visual hallucinations, but feels that these are not distressing. She does not believe the patient to be a risk of harm to himself and states he is able to return to the halfway on discharge. Principal Diagnosis Altered mental status likely from medication noncompliance Discharge Exam Constitutional WD/WN, vitals as above well developed Eyes PERRL, conjunctivae normal, anicteric sclerae Neck trachea midline, no thyromegaly Respiratory normal respiratory effort, lungs clear to auscultation Cardiovascular RRR, no murmur, no edema Gastrointestinal (Abdomen) normal bowel sounds, soft, nontender, no hepatosplenomegaly Skin no rashes, warm and dry Neurologic PERRL, EOMI, accommodation nl, no face palsy, no dysarthria Psychiatric Orientation: alert and cooperative Lymphatic no cervical or axillary lymphadenopathy Discharge Data Allergies Allergy/AdvReac Type Severity Reaction Status Date / Time No Known Allergies Allergy Unverified 05/14/18 10:35 Consultations 01/19/19 06:51 Consult Case Management - Discharge Planning Routine ED Decision to Admit Stat 01/19/19 08:09 Consult Neurology Routine 01/19/19 08:43 Consult Fifth Hand Routine 01/20/19 09:07 Consult Psychiatry Routine Ordered Studies 01/18/19 21:39 CT head/brain wo con Stat 01/19/19 10:18 CT chest wo con Routine 01/21/19 10:12 MR brain wo con Routine Hospital Course (1) Metabolic encephalopathy: Initally there was concern over possible menigitits. Neurolgoy does not believe this is the case. Lumbar puncture confirms that this was not the case either. Stopped IV antibiotics, will place patient on augmentin Will transfer to medical. After a day of being in medical. Patient was back to baseline. Patient did not require inpatient psych. 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 (2) Schizophrenia: Patient with schizophrenia maintained on Clozapine. ?compliance with his medications. Report of auditory hallucinations prior to arrival. Patient with neutrophil predominant leukocytosis on CBC. Eosinophilia resolved -Continue Clozapine -reordered psych consult (3) Depression: Chronic -Continue Sertraline -Psychiatry consultation as above . Total Time Total Time Spent Total Time Spent (In Minutes): 35 Total Time Includes: Examination of the Patient, Discharge Planning and Medication Reconciliation Discharge Plan Discharge Items Patient Disposition: Home - Self-Care Reason For Visit: AMS Discharge Diagnosis: Aspiration pnuemonia/ medication noncompliance Discharge Goals: Decrease discomfort Activity: Resume your previous activity Non-emergency contact: Primary Care Provider Call non-emergency contact if: you have any medication questions Follow-up/Referrals: SUSANNAH Ramesh [Outside] (follow up with therapist and psychiatrist February 04, 2019 at 11am.) Duane Delgado MD [Primary Care Provider] - Diet: Regular Addtl Provider Instructions: Ok to followup with Psych and PCP as an outpatient. Prescriptions: New amoxicillin-pot clavulanate 875-125 mg Tablet 1 tab PO BIDM Qty: 18 RF: 0 Continued clozapine 100 mg Tablet 200 mg PO HS Qty: 30 RF: 0 sertraline 50 mg Tablet 75 mg PO QAM Qty: 30 RF: 0 Stand-Alone Forms: [facility] Discharge Orders: Discharge Order (Routine); Ordered 01/21/19 Ordered By: Raimundo Flores Admission Data Admit Date/Time: 01/19/19 05:25 Attending Provider: Raimundo Flores Admit Provider: Nancy Moore Primary Care Provider: Duane Delgado Other Providers: Miguel Allen ; Miguel Srinivasan ; Debbi Escobedo Service: Medical Other Interventions: Discharge Summary Assessment (RN) Last Done: 01/21/19 15:29 DC Date/Time DO NOT enter until pt leaves facility: 01/21/19 16:15
== END 2019-01-21 16:15 | disposition home or self-care (01) | DRG 947 ==
LOC: ED 19:37 → 2N 01-19 05:25 → SUATTDRO 01-19 05:25 → 2N 01-19 06:10 → 1E 01-19 09:15 → 4W 01-20 16:24

== ENCOUNTER 2019-06-02 11:21 | Observation (INO) ==
[2019-06-02 12:31] LABS: Basophils # (auto) 0.05 K/uL (0-0.2); Basophils % (auto) 0.6 %; Eosinophils # (auto) 0.18 K/uL (0-0.5); Eosinophils % (auto) 2.1 %; Hematocrit (blood only) 38.3 % (42-52); Hemoglobin 12.9 g/dL (14.0-18.0); Immature Granulocytes # (auto) 0.02 K/uL (0.00-0.02); Immature Granulocytes % (auto) 0.2 %; Lymphocytes # (auto) 2.33 K/uL (1.2-3.4); Lymphocytes % (auto) 26.9 %; Mean Corpuscular Hemoglobin 29.9 pg (25-34); Mean Corpuscular Hgb Conc 33.7 g/dL (32-36); Mean Corpuscular Volume 88.9 fL (80-100); Mean Platelet Volume 10.7 fL (7.4-10.4); Monocytes # (auto) 0.49 K/uL (0.11-0.59); Monocytes % (auto) 5.7 %; Neutrophils % (auto) 64.5 %; Platelet Count 321 K/uL (130-400); RDW Coefficient of Variation 13.9 % (11.5-14.5); RDW Standard Deviation 45.7 fL (36.4-46.3); Red Blood Count 4.31 M/uL (4.7-6.1); White Blood Count 8.67 K/uL (4.8-10.8)
[2019-06-02 12:36] LABS: Appearance Urine Clear (Clear); Bacteria Urine Automated Negative (Negative); Bilirubin Urine Negative (Negative); Blood Urine Negative (Negative); Color Urine Yellow; Glucose Urine UA Negative (Negative); Ketones Urine Negative (Negative); Leukocyte Esterase Urine Negative (Negative); Nitrite Urine Negative (Negative); RBC Urine Automated 0-4 /hpf (0-4); Specific Gravity Urine 1.023 (1.000-1.030); Urobilinogen Urine Negative (Negative); pH Urine 7.5 (4.5-7.5)
[2019-06-02 12:49] LABS: Protein Urine Negative (Negative)
[2019-06-02 12:56] LABS: BUN Creatinine Ratio 11.3 (10-20); Calcium 8.8 mg/dl (8.5-10.1); Creatinine Clr Calc Pharmacy 96.5 ml/min; Est GFR (African American) 100.2; Est GFR (Non-African American) 86.4; Potassium 3.9 mmol/L (3.5-5.1)
[2019-06-02 12:58] LABS: Acetaminophen < 2 ug/ml (10-30); Salicylate < 1.7 mg/dl (2.8-20)
[2019-06-02 13:05] LABS: Bilirubin,Total 0.3 mg/dl (0.2-1); Globulin 4.1 gm/dl (2.5-4.0); Thyroid Stimulating Hormone 0.859 uIu/ml (0.300-4.500); Total Protein 8.1 gm/dl (6.4-8.2)
[2019-06-02 13:15] LABS: Amphetamines+Metham, Urine Neg (Neg); Barbiturates, Urine Neg (Neg); Benzodiazepine, Urine Neg (Neg); Cocaine, Urine Neg (Neg); MDMA (Ecstacy), Urine Neg (Neg); Methadone, Urine Neg (Neg); Opiate, Urine Neg (Neg); Phencyclidine, Urine Neg (Neg)
[2019-06-02] MEDS ORDERED: IOVERSOL 100ml IV PRN (13:16)
--- NOTE | 2019-06-02 13:22 | CT Scan Report ---
CT head/brain wo con CLINICAL HISTORY: 28 years-old Male presenting with ams, mental health evaluation. TECHNIQUE: Multidetector CT imaging of the head was performed without the use of intravenous contrast . IV contrast: None. One or more dose lowering techniques were used consistent with the principles of ALARA (as low as reasonably achievable), including automatic exposure control, mA or kV adjustment t o individual patient size, and/or use of iterative reconstruction. COMPARISON: 01/18/2019. CT DOSE (mGy.cm): The estimated cumulative dose is 1228.53. FINDINGS: Primer Assembler topogram: Unremarkable. Ventricles and sulci normal in size. No hemorrhage. Brain parenchyma normal in appearance with preser bev valdivia-white differentiation. No acute territorial infarct. No mass effect or midline shift. No ext ra-axial fluid collection. Paranasal sinuses and mastoid air cells clear. Calvarium intact. IMPRESSION: 1. No acute intracranial abnormality. Electronically signed by: Ruben Cool M.D. 06/02/2019 1:21 PM
--- NOTE | 2019-06-02 13:36 | CT Scan Report ---
CT abd pelvis IV con only CLINICAL HISTORY: 28 years-old Male presenting with epigastric pain, vomiting. TECHNIQUE: Multidetector CT of the abdomen and pelvis was performed after the administration of intra venous contrast. IV contrast: 94 mL of Optiray 320. One or more dose lowering techniques were used co nsistent with the principles of ALARA (as low as reasonably achievable), including automatic exposure control, mA or kV adjustment to individual patient size, and/or use of iterative reconstruction. COMPARISON: None. CT DOSE (mGy.cm): The estimated cumulative dose is 618.07 mGy.cm. FINDINGS: Hand Finisher topogram: Unremarkable. Image quality is mildly degraded by motion artifact and positioning of the arms at the sides. This on ly mildly limits diagnostic sensitivity the exam. Lung bases: Normal heart size. No pericardial or pleural effusion. No focal infiltrate or nodule at t he lung bases. Mosaic attenuation at the lung bases. Liver: Normal morphology. No liver lesion. Patent hepatic vasculature. Biliary: No intrahepatic or extrahepatic biliary ductal dilatation. Normal gallbladder. Pancreas: Normal. Spleen: Normal. Adrenal glands: Normal. Kidneys and ureters: Normal. No hydronephrosis. Bladder: Incompletely evaluated secondary to underdistention. Pelvic organs: Prostate and seminal vesicles normal. Bowel: Moderate stool burden in the rectum. Top normal diameter of the appendix measuring 5-6 mm. Tra ce adjacent fluid and peritoneal thickening is questioned (series 3 image 257). No bowel obstruction. Peritoneal cavity: No free fluid or intraperitoneal gas. Lymph nodes: No enlarged lymph nodes in the abdomen or pelvis. Vasculature: Aorta and IVC patent and normal in caliber. Abdominal wall: Normal. Musculoskeletal: Normal. IMPRESSION: 1. Top normal diameter of the appendix with trace adjacent peritoneal thickening or trace fluid. Unf ortunately, the overall mildly degraded scan is more severely degraded in the right lower quadrant al catherine the course of the appendix. Overall these findings are equivocal for appendicitis. Close clinical follow-up is recommended. Electronically signed by: Ruben Cool M.D. 06/02/2019 1:34 PM
--- NOTE | 2019-06-02 15:35 | Surgery Consultation ---
Date of Consultation June 02, 2019 Assessment & Plan (1) Vomiting: Minimal tenderness LLQ, WBC and differential normal. CT findings were reviewed with radiology. Clinical suspicion for appendicitis is low. However, given altered mental status, he should have follow-up evaluation in the morning. His admission can be coordinated by medicine or psychiatry. History of Present Illness History of Present Illness 28 y/o male with schizophrenia in ED for altered mental status epigastric pain and vomiting. He denies abdominal pain when I saw him and told me he was "better." He denies nausea now and reports one episode of vomiting. His patient case coordinator was present during my evaluation. Allergies Allergy/AdvReac Type Severity Reaction Status Date / Time No Known Drug Allergies Allergy Verified 03/24/19 10:52 Home Medications Home Medications Medication Instructions Recorded Confirmed Type clozapine [Clozaril] 200 mg PO HS 06/02/19 06/02/19 History sertraline [Zoloft] 75 mg PO DAILY 06/02/19 06/02/19 History Patient History Medical History Eosinophilia Suicide attempt Metabolic encephalopathy Schizophrenia Social History Preferred Language: Beninese Communication Ability: Impaired Visual Impairment: No Limitations Hearing Ability: Normal Beliefs That Will Affect Care: None marital status: Single Current Living Situation: Other current occupational status: employed Feels Safe at Home: Yes Smoking Status: Never smoker Cigarettes Per Day: Patient unresponsive at this time ; Hx Alcohol Use: No (Patient unresponsive at this time) Hx Substance Use: No (Patient unresponsive at this time) Seatbelt Use: always Review of Systems Constitutional: no fever and no chills Gastrointestinal: as per Subjective / HPI Physical Exam Gastrointestinal (Abdomen): Inspection/Auscultation: abdomen not distended Percussion/Palpation: + abdomen tender (minimal LLQ) and abdomen soft; no guarding Results & Data Vital Signs (Past 12 Hours) Vital Signs Temp Pulse Pulse Resp BP BP Pulse Ox 06/02/19 14:24 74 18 141/92 H 99 06/02/19 11:33 36.8 C 59 L 17 132/[address] abd pelvis IV con only CLINICAL HISTORY: 28 years-old Male presenting with epigastric pain, vomiting. TECHNIQUE: Multidetector CT of the abdomen and pelvis was performed after the administration of intravenous contrast. IV contrast: 94 mL of Optiray 320. One or more dose lowering techniques were used consistent with the principles of ALARA (as low as reasonably achievable), including automatic exposure control, mA or kV adjustment to individual patient size, and/or use of iterative reconstruction. COMPARISON: None. CT DOSE (mGy.cm): The estimated cumulative dose is 618.07 mGy.cm. FINDINGS: Pole Lift Operator topogram: Unremarkable. Image quality is mildly degraded by motion artifact and positioning of the arms at the sides. This only mildly limits diagnostic sensitivity the exam. Lung bases: Normal heart size. No pericardial or pleural effusion. No focal infiltrate or nodule at the lung bases. Mosaic attenuation at the lung bases. Liver: Normal morphology. No liver lesion. Patent hepatic vasculature. Biliary: No intrahepatic or extrahepatic biliary ductal dilatation. Normal gallbladder. Pancreas: Normal. Spleen: Normal. Adrenal glands: Normal. Kidneys and ureters: Normal. No hydronephrosis. Bladder: Incompletely evaluated secondary to underdistention. Pelvic organs: Prostate and seminal vesicles normal. Bowel: Moderate stool burden in the rectum. Top normal diameter of the appendix measuring 5-6 mm. Trace adjacent fluid and peritoneal thickening is questioned (series 3 image 257). No bowel obstruction. Peritoneal cavity: No free fluid or intraperitoneal gas. Lymph nodes: No enlarged lymph nodes in the abdomen or pelvis. Vasculature: Aorta and IVC patent and normal in caliber. Abdominal wall: Normal. Musculoskeletal: Normal. IMPRESSION: 1. Top normal diameter of the appendix with trace adjacent peritoneal thickening or trace fluid. Unfortunately, the overall mildly degraded scan is more severely degraded in the right lower quadrant along the course of the appendix. Overall these findings are equivocal for appendicitis. Close clinical follow-up is recommended. Electronically signed by: Ruben Cool M.D. 06/02/2019 1:34 PM PG Care Time/CCT Total # of Minutes Spent Total Time Spent with Patient: Total time spent is greater than 50% in coordination of care (as documented) at patient's floor/unit and/or counseling patient:
--- NOTE | 2019-06-02 16:16 | Emergency Department Note ---
Entered by Garfield Lyles acting as a scribe for History of Present Illness General Chief Complaint: Mental Health Evaluation Stated Complaint: mhid Time Seen by Provider: 06/02/19 11:23 Source: patient History of Present Illness Provider complaint: altered mental status Onset (ago): unknown Duration: getting worse History of same: Yes Context: + not taking psychiatric medications (Suspected ) Associated psychiatric symptoms: + depression; no suicidal ideation and no homicidal ideation Associated symptoms: + vomiting The patient is a 28 year old male who presents to the Emergency Room with intermittent altered mental status that has been noticed by his spring encaser over the past week. The behavioral health case manager states the patient recently moved into an apartment from a fdc where he was stable for some time. However, when they went to check on him the patient was disoriented and did not notice the spring encaser. The spring encaser states this is very abnormal for him and believes it is because he is not taking his medications for his schizophrenia and PTSD. The spring encaser also shared that the patient has been missing mental health appointments, work shifts and was even found sleeping in an ally behind his workplace. She added that the patient has returned to the fdc since moving out thinking he still resided there. Per the patient, he has been taking all of his medications and is not depression nor does he have suicidal thoughts. The patient also has no intent to harm others. The patient knows the year, place, and current president. He is complaining of vomiting and is repeatedly requesting blood work. The patient denies any alcohol or drug use. Home Medications Home Medications Medication Instructions Recorded Confirmed Type clozapine [Clozaril] 200 mg PO HS 06/02/19 06/02/19 History sertraline [Zoloft] 75 mg PO DAILY 06/02/19 06/02/19 History Allergies Allergy/AdvReac Type Severity Reaction Status Date / Time No Known Drug Allergies Allergy Verified 03/24/19 10:52 Past Med/Surg History Medical History Eosinophilia Suicide attempt Metabolic encephalopathy Schizophrenia Social History Preferred Language: [place] African Communication Ability: Impaired Visual Impairment: No Limitations Hearing Ability: Normal Beliefs That Will Affect Care: None marital status: Single Current Living Situation: Other current occupational status: employed Feels Safe at Home: Yes Smoking Status: Never smoker Cigarettes Per Day: Patient unresponsive at this time ; Hx Alcohol Use: No (Patient unresponsive at this time) Hx Substance Use: No (Patient unresponsive at this time) Seatbelt Use: always Review of Systems See HPI for pertinent positives & negatives. and A total of 10 systems reviewed and were otherwise negative Physical Exam Vital Signs Vital Signs - 24 hr 06/02/19 11:33 06/02/19 14:24 Temperature 36.8 C Temperature Source Oral Sepsis Recent Fever Within 48 Hours No Sepsis Action Taken by Nursing No Action Required Pulse Rate 59 L Pulse Rate [Right Radial] 74 Pulse Rhythm [Right Radial] Regular Respiratory Rate 17 18 Respiratory Effort / Characteristics Non-Labored Respiratory Depth Normal Normal Respiratory Pattern Regular Blood Pressure 132/75 Blood Pressure [Left Arm] 141/92 H Blood Pressure Mean 94 Blood Pressure Mean [Left Arm] 108 Blood Pressure Position [Left Arm] Sitting Pulse Oximetry 98 99 Oxygen Delivery Method Room Air Room Air GENERAL: He is oriented to person, place, and time. He appears well-developed and well-nourished. He does not appear distressed. HENT: Exam performed. - Head: Normocephalic and atraumatic. - Right Ear: External ear normal. No mastoid tenderness. - Left Ear: External ear normal. No mastoid tenderness. - Mouth/Throat: The oropharynx is clear and moist. No trismus in the jaw. No dental abscesses or uvula swelling. No oropharyngeal exudate or tonsillar abscesses. EYES: Conjunctivae and EOM are normal. Pupils are equal, round, and reactive to light. Right eye exhibits no discharge. Left eye exhibits no discharge. No scleral icterus. NECK: Normal range of motion. Neck supple. No JVD present. No spinous process tenderness present. No carotid bruit present. No rigidity. No tracheal deviation and normal range of motion present. No Brudzinski's sign and no Kernig's sign noted. CV: Normal rate, regular rhythm, normal heart sounds and intact distal pulses. There is no peripheral edema. Palpable radial pulses bue. PULM/CHEST: Effort normal and breath sounds normal. No respiratory distress. No stridor. He has no wheezes. He has no rales. - Chest Wall: He exhibits no tenderness. ABD: Diffuse pain on palpation of the abdomen. MUSC/SKEL: Normal range of motion. There is no peripheral edema, tenderness or deformity. LYMPH: No cervical adenopathy. NEURO: He is alert and oriented to person, place, and time. He has normal strength. No cranial nerve deficit or sensory deficit. Coordination and gait normal. GCS eye subscore is 4. GCS verbal subscore is 5. GCS motor subscore is 6. Cerebellar tests wnl. SKIN: Skin is warm and dry. He is not diaphoretic. PSYCH: Bizarre affect. Denies SI and HI. Course 1142: Past medical records reviewed. The patient was evaluated in room A07, and a complete history and physical examination were performed. 1340: Stable. Imaging shows findings that are equivocal for appendicitis. I spoke to Damien Tamayo - General Surgery about the patient's case and he is going to evaluate him. 1406: Vital signs are stable. I discussed the case with Dr. Tamayo after he evaluated the patient. He told me that Dr. Lawler reviewed the scan and does not think there is any operative intervention at this point but the patient does need to be observed closely with serial abdominal exams and recheck of WBC levels. He agreed to be on consult and said the patient should be admitted to medicine. There is no need for antibiotics at this time. [facility] hospitalist service was paged. 1510: I spoke to Dr. Dumont - [facility] Hospitalist about the patient's case. He is going to accept the patient for further evaluation. Consultations Consultation #1: I spoke to Dr. Dumont - [facility] Hospitalist about the patient's case. He is going to accept the patient for further evaluation. Time: 15:10 Administered Medications Ioversol (Optiray 320 100ml) 94 ml IV ONCE PRN PRN Reason: Interaction Checking Stop: 06/06/19 13:15 Last Admin: 06/02/19 13:17 Dose: 94 ml Documented by: [id number] Medical Decision Making Medical Records Attestation: I reviewed the patient's medical records. Home Medications Current Medication List: was personally reviewed by me Laboratory Data Attestation: I reviewed the patient's lab results. Result diagrams: 06/02/19 12:19 06/02/19 12:18 Lab Results 09/19/19 09/19/19 09/19/19 Range/Units 12:18 12:19 12:19 WBC 8.67 (4.8-10.8) K/uL RBC 4.31 L (4.7-6.1) M/uL Hgb 12.9 L (14.0-18.0) g/dL Hct 38.3 L (42-52) % MCV 88.9 (80-100) fL MCH 29.9 (25-34) pg MCHC 33.7 (32-36) g/dL RDW Std Deviation 45.7 (36.4-46.3) fL RDW Coeff of Tawanna 13.9 (11.5-14.5) % Plt Count 321 (130-400) K/uL MPV 10.7 H (7.4-10.4) fL Immature Gran % (Auto) 0.2 % Neut % (Auto) 64.5 % Lymph % (Auto) 26.9 % Pitt % (Auto) 5.7 % Eos % (Auto) 2.1 % Baso % (Auto) 0.6 % Immature Gran # (Auto) 0.02 (0.00-0.02) K/uL Neut # (Auto) 5.60 (1.4-6.5) K/uL Lymph # (Auto) 2.33 (1.2-3.4) K/uL Pitt # (Auto) 0.49 (0.11-0.59) K/uL Eos # (Auto) 0.18 (0-0.5) K/uL Baso # (Auto) 0.05 (0-0.2) K/uL Sodium 140 (136-145) mmol/L Potassium 3.9 (3.5-5.1) mmol/L Chloride 105 (98-107) mmol/L Carbon Dioxide 28 (21-32) mmol/L Anion Gap 7.0 (3-11) BUN 13 (7-18) mg/dl Creatinine 1.16 (0.6-1.4) mg/dl Est Cr Clr Drug Dosing 96.5 ml/min Est GFR ( Amer) 100.2 Est GFR (Non-Af Amer) 86.4 BUN/Creatinine Ratio 11.3 (10-20) Glucose 105 H (70-99) mg/dl Calcium 8.8 (8.5-10.1) mg/dl Total Bilirubin 0.3 (0.2-1) mg/dl AST 43 H (15-37) U/L ALT 48 (12-78) U/L Alkaline Phosphatase 80 (45-117) U/L Total Protein 8.1 (6.4-8.2) gm/dl Albumin 4.0 (3.4-5.0) gm/dl Globulin 4.1 H (2.5-4.0) gm/dl Albumin/Globulin Ratio 1.0 (0.9-2) TSH 0.859 (0.300-4.500) uIu/ml Specimen Hemolysis Urine Color Urine Appearance (Clear) Urine pH (4.5-7.5) Ur Specific [employer] (1.000-1.030) Urine Protein (Negative) Urine Glucose (UA) (Negative) Urine Ketones (Negative) Urine Blood (Negative) Urine Nitrite (Negative) Urine Bilirubin (Negative) Urine Urobilinogen (Negative) Ur Leukocyte Esterase (Negative) Urine WBC (Auto) (0-5) /hpf Urine RBC (Auto) (0-4) /hpf U Hyaline Cast (Auto) (0-5) /lpf U Epithel Cells (Auto) (0-5) /lpf Urine Bacteria (Auto) (Negative) Salicylates < 1.7 L (2.8-20) mg/dl Urine Opiates Screen (Neg) Ur Methadone, Qual (Neg) Acetaminophen < 2 L (10-30) ug/ml Urine Barbiturates (Neg) Ur Phencyclidine (PCP) (Neg) U Amphetamin/Meth Scrn (Neg) MDMA (Ecstasy) Screen (Neg) U Benzodiazepines Scrn (Neg) Ur Cocaine Metabolite (Neg) U Marijuana (THC) Screen (Neg) Ethyl Alcohol mg/dL (0-3) mg/dl 06/02/19 06/02/19 06/02/19 Range/Units 12:19 12:20 12:20 WBC (4.8-10.8) K/uL RBC (4.7-6.1) M/uL Hgb (14.0-18.0) g/dL Hct (42-52) % MCV (80-100) fL MCH (25-34) pg MCHC (32-36) g/dL RDW Std Deviation (36.4-46.3) fL RDW Coeff of Tawanna (11.5-14.5) % Plt Count (130-400) K/uL MPV (7.4-10.4) fL Immature Gran % (Auto) % Neut % (Auto) % Lymph % (Auto) % Pitt % (Auto) % Eos % (Auto) % Baso % (Auto) % Immature Gran # (Auto) (0.00-0.02) K/uL Neut # (Auto) (1.4-6.5) K/uL Lymph # (Auto) (1.2-3.4) K/uL Pitt # (Auto) (0.11-0.59) K/uL Eos # (Auto) (0-0.5) K/uL Baso # (Auto) (0-0.2) K/uL Sodium (136-145) mmol/L Potassium (3.5-5.1) mmol/L Chloride (98-107) mmol/L Carbon Dioxide (21-32) mmol/L Anion Gap (3-11) BUN (7-18) mg/dl Creatinine (0.6-1.4) mg/dl Est Cr Clr Drug Dosing ml/min Est GFR ( Amer) Est GFR (Non-Af Amer) BUN/Creatinine Ratio (10-20) Glucose (70-99) mg/dl Calcium (8.5-10.1) mg/dl Total Bilirubin (0.2-1) mg/dl AST (15-37) U/L ALT (12-78) U/L Alkaline Phosphatase (45-117) U/L Total Protein (6.4-8.2) gm/dl Albumin (3.4-5.0) gm/dl Globulin (2.5-4.0) gm/dl Albumin/Globulin Ratio (0.9-2) TSH (0.300-4.500) uIu/ml Specimen Hemolysis Urine Color Yellow Urine Appearance Clear (Clear) Urine pH 7.5 (4.5-7.5) Ur Specific [employer] 1.023 (1.000-1.030) Urine Protein Negative (Negative) Urine Glucose (UA) Negative (Negative) Urine Ketones Negative (Negative) Urine Blood Negative (Negative) Urine Nitrite Negative (Negative) Urine Bilirubin Negative (Negative) Urine Urobilinogen Negative (Negative) Ur Leukocyte Esterase Negative (Negative) Urine WBC (Auto) 1-5 (0-5) /hpf Urine RBC (Auto) 0-4 (0-4) /hpf U Hyaline Cast (Auto) 1-5 (0-5) /lpf U Epithel Cells (Auto) 5-10 H (0-5) /lpf Urine Bacteria (Auto) Negative (Negative) Salicylates (2.8-20) mg/dl Urine Opiates Screen Neg (Neg) Ur Methadone, Qual Neg (Neg) Acetaminophen (10-30) ug/ml Urine Barbiturates Neg (Neg) Ur Phencyclidine (PCP) Neg (Neg) U Amphetamin/Meth Scrn Neg (Neg) MDMA (Ecstasy) Screen Neg (Neg) U Benzodiazepines Scrn Neg (Neg) Ur Cocaine Metabolite Neg (Neg) U Marijuana (THC) Screen Neg (Neg) Ethyl Alcohol mg/dL < 3.0 (0-3) mg/dl Imaging Data Radiologist's Impression: Radiology results as stated below per my review and the radiologist's interpretation: CT head/brain wo con CLINICAL HISTORY: 28 years-old Male presenting with ams, mental health evaluation. TECHNIQUE: Multidetector CT imaging of the head was performed without the use of intravenous contrast. IV contrast: None. One or more dose lowering techniques were used consistent with the principles of ALARA (as low as reasonably achievable), including automatic exposure control, mA or kV adjustment to individual patient size, and/or use of iterative reconstruction. COMPARISON: 01/18/2019. CT DOSE (mGy.cm): The estimated cumulative dose is 1228.53. FINDINGS: Camera Engineer topogram: Unremarkable. Ventricles and sulci normal in size. No hemorrhage. Brain parenchyma normal in appearance with preserved valdivia-white differentiation. No acute territorial infarct. No mass effect or midline shift. No extra-axial fluid collection. Paranasal sinuses and mastoid air cells clear. Calvarium intact. IMPRESSION: 1. No acute intracranial abnormality. Electronically signed by: Ruben Cool M.D. 06/02/2019 1:[address] abd pelvis IV con only CLINICAL HISTORY: 28 years-old Male presenting with epigastric pain, vomiting. TECHNIQUE: Multidetector CT of the abdomen and pelvis was performed after the administration of intravenous contrast. IV contrast: 94 mL of Optiray 320. One or more dose lowering techniques were used consistent with the principles of ALARA (as low as reasonably achievable), including automatic exposure control, mA or kV adjustment to individual patient size, and/or use of iterative reconstruction. COMPARISON: None. CT DOSE (mGy.cm): The estimated cumulative dose is 618.07 mGy.cm. FINDINGS: Camera Engineer topogram: Unremarkable. Image quality is mildly degraded by motion artifact and positioning of the arms at the sides. This only mildly limits diagnostic sensitivity the exam. Lung bases: Normal heart size. No pericardial or pleural effusion. No focal infiltrate or nodule at the lung bases. Mosaic attenuation at the lung bases. Liver: Normal morphology. No liver lesion. Patent hepatic vasculature. Biliary: No intrahepatic or extrahepatic biliary ductal dilatation. Normal gallbladder. Pancreas: Normal. Spleen: Normal. Adrenal glands: Normal. Kidneys and ureters: Normal. No hydronephrosis. Bladder: Incompletely evaluated secondary to underdistention. Pelvic organs: Prostate and seminal vesicles normal. Bowel: Moderate stool burden in the rectum. Top normal diameter of the appendix measuring 5-6 mm. Trace adjacent fluid and peritoneal thickening is questioned (series 3 image 257). No bowel obstruction. Peritoneal cavity: No free fluid or intraperitoneal gas. Lymph nodes: No enlarged lymph nodes in the abdomen or pelvis. Vasculature: Aorta and IVC patent and normal in caliber. Abdominal wall: Normal. Musculoskeletal: Normal. IMPRESSION: 1. Top normal diameter of the appendix with trace adjacent peritoneal thickening or trace fluid. Unfortunately, the overall mildly degraded scan is more severely degraded in the right lower quadrant along the course of the appendix. Overall these findings are equivocal for appendicitis. Close clinical follow-up is recommended. Electronically signed by: Ruben Cool M.D. 06/02/2019 1:34 PM Blood Pressure Blood Pressure Findings: Elevated blood pressure Blood Pressure Disposition: further management by hospitalist [facility] Narrative 1142: Past medical records reviewed. The patient was evaluated in room A07, and a complete history and physical examination were performed. 1340: Stable. Imaging shows findings that are equivocal for appendicitis. I spoke to Damien Tamayo - General Surgery about the patient's case and he is going to evaluate him. 1406: Vital signs are stable. I discussed the case with Dr. Tamayo after he evaluated the patient. He told me that Dr. Lawler reviewed the scan and does not think there is any operative intervention at this point but the patient does need to be observed closely with serial abdominal exams and recheck of WBC levels. He agreed to be on consult and said the patient should be admitted to medicine. There is no need for antibiotics at this time. [facility] hospitalist service was paged. 1510: I spoke to Dr. Dumont - [facility] Hospitalist about the patient's case. He is going to accept the patient for further evaluation. Impression & Plan Altered mental status, Abdominal pain, RLQ Discharge Plan Visit Data Chief Complaint: Mental Health Evaluation Stated Complaint: mhid ED Provider: Jesus Hackett Discharge Problem: Altered mental status, Abdominal pain, RLQ Patient Disposition: Being Evaluated by Hospitalist Forms Stand Alone Forms: [facility] Prescriptions Prescriptions: No Action clozapine [Clozaril] 100 mg Tablet 200 mg PO HS RF: 0 sertraline [Zoloft] 50 mg Tablet 75 mg PO DAILY RF: 0 Referrals Referrals: Duane Delgado MD [Primary Care Provider] - Discharge Problem: Altered mental status Qualifiers: Altered mental status type: unspecified Qualified Code(s): R41.82 - Altered mental status, unspecified The scribe's documentation has been prepared under my direction and personally reviewed by me in its entirety. I confirm that the note above accurately reflects all work, treatment, procedures, and medical decision making performed by me.
--- NOTE | 2019-06-02 17:12 | History & Physical Report ---
Date of Service June 02, 2019 Assessment & Plan (1) Schizophrenia: Admit telemetry obs Discussed with psychiatry - recommend restarting clozapine at 25 mg and will titrate up. Hold sertraline for now. Give 5 mg po or IM Haldol as needed for agitation or 1 mg IV ativan prn for agitation. CT head was normal Patient apparently not taking medications or performing self care. Unfortunately there are no male beds on the behavioral health floor at this time. If abdominal symptoms remain resolved in the morning, will need to discuss behavioral health placement for further care Psych consulted (2) Abdominal pain, RLQ: Upon my assessment patient's pain had resolved, no grimacing with palpation or guarding, no further vomiting Surgery was consulted in the ED due to equivocal finding for appendicitis on CT - no indication for abx or surgical intervention at this time. Will repeat CBC in am, if further symptoms develop such as fever, pain, vomiting or leukocytosis, will repeat CT scan (3) DVT prophylaxis: ambulatory - SCDs contraindicated given pacing/restlessness, patient is low risk for VTE so will hold off on further agitating him with chemoprophylaxis sticks. History of Present Illness Mr. Vallecillo is pacing in his room. He does not answer my questions. He did finally sit back so that I could assess him but otherwise did not interact much. Unable to obtain a ROS. I did call his psych case technician for further information but she was not available. Looking back through notes it appears that he has been on a bit of a spiral since moving out of his long-term but that his current behavior is not usual for him. He is able to maintain a job. However, his case technician was concerned that he has not been taking his medications. In the ED he did mention vomiting which prompted a CT with equivocal results. Pmhx per notes: schizophrenia, seizures, PTSD Social: lives alone, former alcohol dependence now sober, employed Family: unable to obtain due to altered mental status Primary Care Provider: Duane Delgado MD Allergies Allergy/AdvReac Type Severity Reaction Status Date / Time No Known Drug Allergies Allergy Verified 03/24/19 10:52 Home Medications Home Medications Medication Instructions Recorded Confirmed Type clozapine [Clozaril] 200 mg PO HS 06/02/19 06/02/19 History sertraline [Zoloft] 75 mg PO DAILY 06/02/19 06/02/19 History Past Med/Surg History Social History Preferred Language: Albanian Communication Ability: Impaired Communication Ability Comment: Pt unable to provide an asnwer at this time Visual Impairment: No Limitations Hearing Ability: Normal Documentation Coordinator Required: No Beliefs That Will Affect Care: None marital status: Single Current Living Situation: Alone Current Living Situation Comment: Apartment , see ED admission report current occupational status: employed Feels Safe at Home: Yes Smoking Status: Never smoker Cigarettes Per Day: Patient unresponsive at this time ; Hx Alcohol Use: Yes Hx Substance Use: No (unknown) Seatbelt Use: always Physical Exam Physical Exam: General: no distress Eyes: normal inspection, PERLL Respiratory: chest non tender, clear to auscultation, normal breath sounds, no respiratory distress, no accessory muscle use Cardiac: regular rate and rhythm, no rub or gallop, no murmur, no edema, no jvd GI/: active bowel sounds, no abd pain or tenderness, no grimacing with abdominal palpation, soft, non distended Extremities: normal range of motion, normal strength, non tender Neuro:does not respond to questions, moves all extremities Psych: alert, flat affect, pacing and restless Skin: normal color, dry Results & Data Vital Signs (Past 12 Hours) Vital Signs Temp Pulse Pulse Resp BP BP Pulse Ox 06/02/19 16:40 72 18 138/76 98 06/02/19 14:24 74 18 141/92 H 99 06/02/19 11:33 36.8 C 59 L 17 132/75 98 Code Status & VTE Plan VTE Prophylaxis Plan VTE Prophylaxis will be ordered: No Supervising Physician Co-Signing Physician Notes I supervised Gricelda Barnett NP on this patient's care. I examined the patient today independently of her. I discussed the plan of care with her with the plan being as written in her note except for any following changes/exceptions: None. Patient said "Yes, sure" to my asking if I could sit down and speak with him. However, he then answered none of my questions, just looking past me and not responding in any way. When I asked if I could listen to his heart and lung and examine his abdomen, he said "Yes, sure." then again ignored all of my i nstructions to him. He did have clear breath sounds, regular rhythm, and non- tender abdominal exam. Otherwise was unable to perform any meaningful history or exam. - Will follow abdominal exam - Will consider repeat CT a/p in the AM if any concerns - Will follow with psychiatry for possible transfer to inpatient psych PG Care Time/CCT Total # of Minutes Spent Total Time Spent with Patient: Total time spent is greater than 50% in coordination of care (as documented) at patient's floor/unit and/or counseling patient: (1) Schizophrenia Schizophrenia type: unspecified Qualified Code(s): F20.9 - Schizophrenia, unspecified
[2019-06-02] MEDS ORDERED: HALOPERIDOL 5 MG TAB PO PRN (17:58)
[2019-06-02] MEDS ORDERED: HALOPERIDOL LACTATE 5 MG/ML 1 ML VIAL IM PRN (17:58)
[2019-06-02] MEDS ORDERED: LORazepam 1 MG/2 ML VIAL IV PRN (17:58)
[2019-06-02] MEDS: cloZAPine 25 MG TAB PO SCH (19:17)
[2019-06-03 03:10] VITALS: O2SAT 99
[2019-06-03 07:20] VITALS: BP 126/83; TEMP 97.5
[2019-06-03 07:48] LABS: Basophils # (auto) 0.07 K/uL (0-0.2); Basophils % (auto) 0.7 %; Eosinophils # (auto) 0.45 K/uL (0-0.5); Eosinophils % (auto) 4.7 %; Hematocrit (blood only) 39.7 % (42-52); Hemoglobin 13.3 g/dL (14.0-18.0); Immature Granulocytes # (auto) 0.01 K/uL (0.00-0.02); Immature Granulocytes % (auto) 0.1 %; Lymphocytes # (auto) 3.86 K/uL (1.2-3.4); Lymphocytes % (auto) 40.5 %; Mean Corpuscular Hemoglobin 30.2 pg (25-34); Mean Corpuscular Hgb Conc 33.5 g/dL (32-36); Mean Platelet Volume 10.6 fL (7.4-10.4); Monocytes % (auto) 8.4 %; Neutrophils # (auto) 4.34 K/uL (1.4-6.5); Neutrophils % (auto) 45.6 %; Platelet Count 334 K/uL (130-400); RDW Standard Deviation 46.5 fL (36.4-46.3); Red Blood Count 4.41 M/uL (4.7-6.1); White Blood Count 9.53 K/uL (4.8-10.8)
[2019-06-03 08:25] LABS: BUN Creatinine Ratio 7.9 (10-20); Blood Urea Nitrogen 9 mg/dl (7-18); C Reactive Protein < 0.29 mg/dl (0-0.29); Calcium 9.3 mg/dl (8.5-10.1); Carbon Dioxide 30 mmol/L (21-32); Chloride 106 mmol/L (98-107); Creatinine Clr Calc Pharmacy 107.3 ml/min; Est GFR (African American) 102.3; Est GFR (Non-African American) 88.3; Glucose 88 mg/dl (70-99); Potassium 3.6 mmol/L (3.5-5.1); Sodium 141 mmol/L (136-145)
--- NOTE | 2019-06-03 08:32 | Surgery Progress Note ---
Date of Service June 03, 2019 Assessment & Plan (1) Abdominal pain, RLQ: WBC and CRP normal no evidence of appendicitis ok for transfer seen with Dr. Lawler as above. no pain. nontender. labs normal. will s/o. call if symptoms recur. Subjective Denies abdominal pain,had breakfast Physical Exam Gastrointestinal (Abdomen): Percussion/Palpation: abdomen soft; abdomen nontender Results & Data Vital Signs (Past 12 Hours) Vital Signs Temp Pulse Pulse Resp BP Pulse Ox 06/03/19 07:19 36.4 C L 62 19 126/83 99 06/03/19 03:08 36.7 C 91 H 18 110/72 99 06/02/19 23:15 66 PG Care Time/CCT Total # of Minutes Spent Total Time Spent with Patient: Total time spent is greater than 50% in coordination of care (as documented) at patient's floor/unit and/or counseling patient:
[2019-06-03] MEDS: cloZAPine 25 MG TAB PO SCH (09:25)
--- NOTE | 2019-06-03 09:49 | Psychiatric Consultation ---
Date of Consultation June 03, 2019 Impression / Recommendations Impression 28-year-old male, well-known to our service, who presented to the ED on a 302 Box A warrant due to concerns for increased psychotic behavior, disorientation, and not completing ADLs. Petition completed by patient's CM, Neda Pena. Pt was hospitalized on the medical floor due to inflammation of appendix found on CT with complaints of RLQ pain and vomiting. Laboratory testing is not suggestive of acute appendicitis, and no surgical recommendations at this time. Psychiatric consultation is requested due psychosis, known history of schizophrenia. Pt is alert during evaluation, but remains disoriented. He does appear to be actively responding to internal stimuli and history suggests he has likely been non-compliant with his psychiatric medication regimen. Case was reviewed with hospitalist RICHARD at time of medical admission, with suggestion to resume clozapine at 25mg daily. Suggested holding sertraline, given patient's presentation of psychosis. We are recommending inpatient psychiatric admission once patient is medically cleared. At time of evaluation, patient is not agreeable to admission. He does have a 302 Box A warrant on his chart. Our service will assist with contacting [facility] at time of medical clearance in order to have patient's rights read and have [address] Waylon Shen was directly involved in review and discussion of the patient's case and participated in medical decision making regarding treatment recommendations. PLAN: 06/03 - Recommended resuming clozapine on admission - as it is likely patient had been non-compliant with medications, dose resumed at 25mg qHS - CBC w/diff ordered from admission - no concerns related to resuming clozapine - Recommended holding sertraline until more stable with regard to paranoia and delusions - Recommending inpatient psychiatric admission after medical clearance - 302 Box A warrant on chart, [facility] will need to be called as patient is not voluntary for admission Risk Factors Assessment Do You Have Access To A Gun?: No Protective Factors Assessment Employed: Yes CPT Code Initial Consultation: 93055 Psych History Identifying Data 28-year-old male admitted medically on 06/02/19 after presenting to the ED on a 302 Box A warrant for mental health evaluation. Pt admitted medically due to reports of abdominal pain and vomiting, in conjunction with inflammation of appendix on CT findings. Laboratory testing did not suggest acute appendicitis, but observation and additional testing was recommended. Psychiatrically, it was reported that the patient's ed case manager had verbalized concerns regarding the patient's behavior, believing him to be off his psychotropic medications. Psychiatric consultation is requested to evaluate the patient for psychosis in the setting of known schizophrenia diagnosis. Information is gathered from hospital documentation and 302 petitioning statement predominantly, as patient's history is not considered to be reliable. Chief Complaint "Fine. I mean. I'm tired. But Fine." History of Present Illness Jayy Vallecillo (Azeez) is a 28-year-old [place] male who presented to the ED on 06/02/19 on a 302 Box A warrant for mental health evaluation. Petition completed by his ed case manager, Neda Pena, due to concerns for displays of odd behavior and reports of failure to keep up with necessary ADLs. On ED presentation, patient was found to have inflammation of his appendix on CT scan, but no laboratory findings consistent with acute appendicitis. Medical admission was pursued, for follow-up testing and surgical consultation. Surgical intervention not being recommended at this time. Psychiatric consultation was requested to evaluate patient for schizophrenia and psychosis in the setting of recent change in behavior and 302 warrant. 302 petitioning statement completed by Neda Pena, patient's CM was reviewed. It suggests the patient was found to be disoriented and unable to recognized familiar staff. He was reportedly responding to internal stimuli and was difficult to redirect. He had admitted to not eating much and not sleeping. Petition states the patient was sent home by his boss due to "inability to work." It was reported to the patient's ed case manager that his employers have found the patient sleeping in alleyways, not able to manage his "well-known and simple work routine." It is reported that while at home, the patient has been stomping around his apartment, naked, non-responsive, and disorganized. It is stated that these behaviors are not typical of the patient "when he is medicated and well." Given the significant contrast between patient's recent behaviors and his typical functioning, the ed case manager had requested evaluation for inpatient psychiatric admission. Pt's case was reviewed with psychiatrist and psychiatric nurse liaison. Pt was evaluated on the medical floor. Although he was cooperative with the assessment, he was not able to appropriately answer the questions asked of him. When asked why he is in the hospital, he states, "nothing." Most of this provider's questions are answered with one-word responses. He does state that his is "fine" and then admits he is "tired." Pt demonstrates a delayed response to most questions, and at times pauses to contradict his previously provided response. For example, pt was asked if he has been compliant with medications and impulsively answers "no", then mumbling for a few seconds before saying, "I mean yes, yes, I take them." According to the patient, he has not noticed any changes in his thoughts or mood. He states he takes his medications, and that he does not need inpatient admission. "I'm fine. That's not needed, but thank you." This provider attempted to explain to the patient his ed case manager's concerns, however, patient appeared distracted. He was observed to be mumbling to himself and looking up toward the ceiling. He is noted to be moving his hands as if writing out words in the air as he speaks to himself. This provider is not able to distinguish what the patient is saying. When asked what he is thinking about, he initially states "nothing", and then says "thinking." He denies auditory or visual hallucinations presently. He denies suicidal or homicidal ideation. Pt denies other needs or questions at this time. Past Psychiatric History Previous Psych History: Pt has a known diagnosis of schizophrenia and is known to our service from prior consults and admissions. Pt was last seen on consult service on 01/20/19, and was last admitted to our unit from 05/10/18 - 06/07/19. When compliant with medications, he is able to function appropriately and even hold employment. He had been living at a [facility], and it is reported he has recently transitioned to a lesser degree of supervision. Pt has a ed case manager, Neda Pena. He is seen at [facility] for medication management. Current Psychiatric Diagnosis: PTSD, Schizophrenia Outpatient Services: [facility] for medication management Previous Psych Admissions: Multiple prior inpatient psychiatric admissions. Hospitalized at [facility] for 8 months in 2017. At the [facility] from 10/16/2016 - 12/31/2016. He has been admitted at [facility] in April of 2015 and April of 2018. Do You Have Access To A Gun?: No History of Previous Suicide Attempt: Yes Describe Attempts in the Past: Reported multiple drug overdose in 04/2018 Past Medication Trials: Full medication history is unclear, documentation suggests prior trials of: 1. Celexa 2. Zoloft 3. Clozapine 4. Risperdal 5. Prozac Allergies Allergy/AdvReac Type Severity Reaction Status Date / Time No Known Drug Allergies Allergy Verified 03/24/19 10:52 Home Medications Home Medications Medication Instructions Recorded Confirmed Type clozapine [Clozaril] 200 mg PO HS 06/02/19 06/02/19 History sertraline [Zoloft] 75 mg PO DAILY 06/02/19 06/02/19 History Family History Largely unknown, it is reported a sister committed suicide per consultation in 04/2018. 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 Marital Status: Single Number Of Children: None Beliefs That Will Affect Care: None History of Legal Problems: None known Patient History Medical History Eosinophilia Suicide attempt Metabolic encephalopathy Schizophrenia Social History Preferred Language: Singaporean Communication Ability: Impaired Communication Ability Comment: Pt unable to provide an asnwer at this time Visual Impairment: No Limitations Hearing Ability: Normal [employer] Required: No Beliefs That Will Affect Care: None marital status: Single Current Living Situation: Alone Current Living Situation Comment: Apartment , see ED admission report current occupational status: employed Feels Safe at Home: Yes Smoking Status: Never smoker Cigarettes Per Day: Patient unresponsive at this time ; Hx Alcohol Use: Yes Hx Substance Use: No (unknown) Seatbelt Use: always Physical Exam Psychiatric: Orientation: alert, oriented to person and oriented to place Apperance: appropriately dressed, appropriately groomed and appeared stated age Overweight-appearing male laying in no acute distress. Pt is appropriately dressed in paper scrubs. Not malodorous, but level of hygiene seems less than ideal. Level of hydration appears adequate. Eye Contact: + fair eye contact (intermittent periods of direct eye contact) Motor Behavior: + psychomotor agitation (appearing restless, using index finger to write in the air) Motor behavior suggesting response to internal stimuli, as patient is muttering to himself and appears to be pointing at objects or seemingly writing things in the air. Speech: no loud speech Rhythmic speech, with intermittent brief pauses. Brief responses to questions, often contradicting himself and changing answers. Notable stutter, which is a known finding. Affect: + flat affect and + constricted affect Mood: no depressed mood ("I'm, I'm fine. Very good.") Thought Process: + thought blocking and + concrete thought process; + thought process not linear or logical Answers questions with brief responses, often not appropriate for question being asked. Notable pauses prior to answering at times. Thought Content: + paranoid Pt does not verbalize any delusional beliefs, but the presence of these is likely Suicidal Thoughts: denies suicidal thoughts and denies suicidal intent Homicidal Thoughts: denies homicidal thoughts Hallucinations: no auditory hallucinations and no visual hallucinations Pt denies hallucinations, but is observed to be responding to internal stimuli - muttering to himself and pointing at objects around his room. Cognition: + remote memory not intact, + attention not intact and + language not intact Insight: + impaired insight Judgement: + impaired judgement Vital Signs (Past 24 Hours): Last Vital Signs Temp 36.4 C L 06/03/19 07:19 Pulse 55 L 06/03/19 08:00 Resp 19 06/03/19 07:19 BP 126/83 06/03/19 07:19 Pulse Ox 99 06/03/19 07:19 Review of Systems Constitutional: reports fatigue this morning Cardiovascular: denied Respiratory: denied Gastrointestinal: reports abdominal pain this morning Neurological: denied Psychiatric: denies symptoms other than stated above Total of at least 10 systems reviewed, pertinent positives as above and in HPI. Results & Data Medications Administered Clozapine (Clozaril) 25 mg PO DAILY [facility], [facility]; Protocol Stop: 07/02/19 18:34 Last Admin: 06/03/19 09:25 Dose: 25 mg Documented by: [id number] Admin: 06/02/19 19:17 Dose: 25 mg Documented by: [id number]
--- NOTE | 2019-06-03 12:02 | Discharge Summary ---
Date of Service June 03, 2019 Admission HPI Per Admitting Provider Jayy Cortez" Ruth Ann is a 28-year-old [place] male who presented to the ED on 06/02/19 on a 302 Box A warrant for mental health evaluation. Petition completed by his showcase maker, Neda Pena, due to concerns for displays of odd behavior and reports of failure to keep up with necessary ADLs. On ED presentation, patient was found to have inflammation of his appendix on CT scan, but no laboratory findings consistent with acute appendicitis. Medical admission was pursued, for follow-up testing and surgical consultation. Surgical intervention not being recommended. Principal Diagnosis abdominal pain Discharge Exam Constitutional + altered mental status and comfortable; not in distress Respiratory normal respiratory effort, lungs clear to auscultation Cardiovascular RRR, no murmur, no edema Gastrointestinal (Abdomen) Inspection/Auscultation: abdomen normal to inspection and normal bowel sounds; abdomen not distended Percussion/Palpation: abdomen soft; abdomen nontender, no guarding and abdomen not rigid Musculoskeletal no cyanosis or clubbing, extremities motor strength 5/5 Skin no rashes, warm and dry Neurologic moves all extremities and awake Psychiatric Orientation: alert and oriented x 3 Eye Contact: + poor eye contact Motor Behavior: steady gait and station Affect: + flat affect Thought Process: + tangential thought process needs redirected at times, appears to be mouthing words without sound and looking off into the room but is not agitated or aggressive. Does follow commands Discharge Data Allergies Allergy/AdvReac Type Severity Reaction Status Date / Time No Known Drug Allergies Allergy Verified 03/24/19 10:52 Consultations 06/02/19 14:11 ED Decision to Admit Stat 06/02/19 17:58 Consult Case Management - Discharge Planning Routine Consult Psychiatry Routine 06/02/19 18:42 Consult Behavioral Health Liaison Routine Ordered Studies 06/02/19 11:48 CT abd pelvis IV con only Stat 06/02/19 11:49 CT head/brain wo con Stat Hospital Course (1) Schizophrenia: Discussed with psychiatry - recommend restarting clozapine at 25 mg and will titrate up. Hold sertraline for now. Give 5 mg po or IM Haldol as needed for agitation or 1 mg IV ativan prn for agitation. CT head was normal Patient apparently not taking medications or performing self care. Psych consulted (2) Abdominal pain, RLQ: Up and walking around, ate breakfast, no pain or guarding with palpation of abdomen, no leukocytosis or fever , no grimacing with palpation or guarding, no further vomiting Surgery was consulted in the ED due to equivocal finding for appendicitis on CT - no indication for abx or surgical intervention at this time. (3) DVT prophylaxis: ambulatory - SCDs contraindicated given pacing/restlessness, patient is low risk for VTE so will hold off on further agitating him with chemoprophylaxis sticks. Total Time Total Time Spent Total Time Spent (In Minutes): greater than 30 minutes Discharge Plan Discharge Items Patient Disposition: Transfer Behavioral Health Fac Reason For Visit: ABDOMINAL PAIN Discharge Diagnosis: Abdominal pain, pschizophrenia Activity: Resume your previous activity Non-emergency contact: Primary Care Provider Call non-emergency contact if: you have any medication questions, your symptoms worsen, your pain is not controlled, your pain is worsening and you have a fever Follow-up/Referrals: Duane Delgado MD [Primary Care Provider] - Diet: Regular Addtl Attending Provider Instructions: . Pending Studies at Discharge: No Stand-Alone Forms: My [facility] Medications and DC Order Prescriptions: New clozapine [Clozaril] 25 mg Tablet 25 mg PO DAILY Qty: 7 RF: 0 Discontinued clozapine [Clozaril] 100 mg Tablet 200 mg PO HS RF: 0 sertraline [Zoloft] 50 mg Tablet 75 mg PO DAILY RF: 0 Discharge Orders: Discharge Order (Routine); Ordered 06/03/19 Ordered By: Gricelda Barnett Admission Data Admit Date/Time: 06/02/19 16:19 Attending Provider: Cristobal Gerard Admit Provider: Cristobal Gerard Primary Care Provider: Duane Delgado Other Providers: Taz Dumont ; Debbi Escobedo
[2019-06-03 13:09] VITALS: PULSE 74
== END 2019-06-03 13:45 ==
LOC: ED 11:21 → 2S 11:21 → 2W 17:06 → 2N 21:03

== ENCOUNTER 2019-06-03 13:43 | Inpatient (IN) ==
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
[2019-06-03] MEDS ORDERED: BISMUTH SUBSALICYLATE PER ML OMNICELL CHARGE PO PRN (14:40)
[2019-06-03] MEDS ORDERED: ACETAMINOPHEN 325 MG TAB PO PRN (14:40)
[2019-06-03] MEDS ORDERED: SODIUM CHLORIDE 0.65% NA SOLN 45 ML (OCEAN) PRN (14:40)
[2019-06-03] MEDS ORDERED: ALUMINUM/MAGNESIUM SUSP 30 ML UDC PO PRN (14:40)
[2019-06-03] MEDS ORDERED: MAGNESIUM HYDROXIDE SUSP 30 ML UDC PO PRN (14:40)
[2019-06-03] MEDS: HALOPERIDOL 10 MG TABLET PO PRN (18:29)
[2019-06-03] MEDS ORDERED: cloZAPine 25 MG TAB PO SCH (22:00)
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
[2019-06-04] MEDS: HALOPERIDOL 10 MG TABLET PO PRN (21:28)
[2019-06-04] MEDS ORDERED: cloZAPine 100 MG TAB PO SCH ×2 (22:00)
[2019-06-04] MEDS ORDERED: cloZAPine 25 MG TAB PO SCH (22:00)
[2019-06-05] MEDS: HALOPERIDOL 10 MG TABLET PO PRN (14:43)
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
[2019-06-05] MEDS ORDERED: cloZAPine 25 MG TAB PO SCH (22:00)
[2019-06-05] MEDS ORDERED: cloZAPine 100 MG TAB PO SCH ×2 (22:00)
[2019-06-06] MEDS: HALOPERIDOL 10 MG TABLET PO PRN (08:47)
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
[2019-06-06] MEDS: cloZAPine 100 MG TAB PO SCH (21:07)
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
[2019-06-07] MEDS: cloZAPine 100 MG TAB PO SCH (21:32)
--- NOTE | 2019-06-08 10:18 | Psychiatric Progress Note ---
Date of Service June 08, 2019 Impression / Recommendations Impression This 28-year-old male with a history of schizophrenia and anxiety who presented to the emergency room 06/02/2019 on a 302, was initially admitted to the medical service due to right lower quadrant pain, and then transferred to the U on a 302 when medically cleared. He is on a 303 involuntary commitment as of 06/07/2019. He has been retitrated on clozapine due to concern for medication nonadherence at home, has tolerated that well, and psychosis is improving. He was being prescribed sertraline which he states was for anxiety, and this will be resumed today. Hallucinations, disorganization, and erratic behavior have improved, and he is hoping to be discharged soon to return to work. He is not yet at baseline, and we are working on a good plan to improve medication compliance and allow for adequate sleep, and he remains at risk of rapid decompensation with premature discharge. (1) Schizophrenia: 06/03 -Thinking and behavior are highly disorganized. His associations are loose, he perseverates or becomes mute, and his disorganized behaviors include presenting in public with a fully erect penis and disrobing in public settings. -The patient harbors series of believes that are not based in reality. One belief is that he is in some form of immediate danger and needs to leave the hospital immediately in order to be safe. 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 The patient has not been attending college for several years now due to his psychiatric disability. -The patient appears to be actively hallucinating. He speaks as if to persons unseen in an empty room, gestures towards empty chairs or empty rooms as if attempting to communicate with an unseen person, and makes elaborate hand gestures as if somehow "signaling" to persons or objects unseen -We will provide the patient with external structure in order to keep him safe. He has been placed on a locked unit, and a medically necessary private room and full view of the nursing station at all times. He is also being checked every 15 minutes by nursing staff. -The plan is to gradually titrate clozapine back to his usual dose of 200 mg at bedtime, and monitor the patient closely. We will encourage the patient to attend group, and activity therapies once his behavior becomes more appropriate. In the meantime, we will provide him with individual treatment that will include reality testing. -I am in agreement with the plan not to restart sertraline at this time. We will reconsider this as the patient stabilizes. 06/04 - continue plan as above, with clozaril titration to outpt dose over next couple days as ordered. holding any SSRI at this time given his current 06/06 -psychosis is improving; clozapine increased to 200 mg at bedtime today. -Meeting with [facility] Neda Pena today. -File for 303 involuntary commitment. -Explore ways to increase outpatient supports and structure. -Patient does not yet been able to tolerate groups or a roommate, as recently as yesterday was disrobing and exposing his genitals to female staff. 06/07 - psychosis continues to improve, continue clozapine 200mg HS. - 303 commitment granted. - Encourage group attendance and consider placing with roommate if able to tolerate. - Refer for [email or web address] med management services. 06/08 -continue clozapine 200 mg at bedtime. -Continue to work on discharge plans and healthy coping skills. -Patient agrees to postpone returning to work until the beginning of next week, and plans to call his boss today to discuss this. (2) Anxiety: 06/08 -patient reports sertraline 75 mg was being prescribed for the past couple of years for anxiety, and that it was helpful. It was held on admission, and he is willing to resume it. Start 50 mg daily today, and increase to 75 mg daily tomorrow. Present on Admission?: Yes (3) Abdominal pain, RLQ: 06/03 -The patient had originally been admitted to medicine on 06/02/2019 from the emergency room because of right lower quadrant pain. An abdominal CT had indicated some inflammation of the patient's appendix, but other studies were not consistent with acute appendicitis and he has been cleared medically. Nevertheless, we will monitor him closely on the unit for an exacerbation of his right lower quadrant pain and will reinvolve the surgical service as indicated. 06/08 -resolved. Risk Factors Assessment Male: Yes : No Do You Have Access To A Gun?: No Health Problems: No Mental Health Diagnoses: Yes Substance Use Disorders: No Previous Attempt: Yes (The patient reportedly has multiple attempts at suicide by overdose. A review of the historical record does not provide adequate data to draw conclusions regarding the patient's previous attempts, and additional information will be gathered from the patient as he stabilizes.) Previous Psychiatric Hospitalization: Yes Protective Factors Assessment : No Responsible for Young Children: No Employed: Yes Stable Relationships: No Supportive Family: No Interval History Identifying Information LEXII TEE is a 28-year-old M who currently lives in a psychiatric residential program. He has a known a history of schizophrenia. He and was admitted on 06/03/19 13:54 on a 302 involuntary commitment for grave disability due to his florid psychotic features and behaviors that include publically disrobing and displaying erections. Chief Complaint "Good". Review of Systems Sleep Information Total Hours of Sleep: 7.25 Sleep Comments: pt on q-15 minute checks Meal Information Percent Meal Consumed - Breakfast: 100 Percent Meal Consumed - Lunch: 100 Percent Meal Consumed - Dinner: 100 Subjective Subjective Patient was seen & assessed and interval progress reviewed with treatment team. Staff report he has been in better behavioral control, but did have one episode of disrobing completely while in his room, and was observed pacing back and forth, talking with no one in the room, and laughing inappropriately. When staff knocked on the door, he did appropriately put on pants before answering. He was able to attend and participate appropriately in groups yesterday, but left several times and appeared to be responding to internal stimuli. He is taking medications as prescribed. He met with his adult protective caseworker, Neda, yes terday after his 303 hearing, and agreed to a referral for mobile med management. He would not allow his adult protective caseworker to contact his landlord, and she asked hospital staff to follow-up on this, but he declined to sign a release, stating that his landlord did not need to be contacted. On my assessment today, he reports that his mood is "good," denies problems with sleep or appetite, and denies side effects to medication. He states that he was taking sertraline for the past couple of years for anxiety, and believes it was helpful at his home dose of 75 mg daily. He said he had stopped taking prazosin, as he was no longer having nightmares, and has not had nightmares since stopping it, so does not feel he needs it anymore. He is anxious to know exactly when he will be discharged, as he wants to contact his boss to figure out when he can be put back on the schedule. He states he typically works Thursday, Thursday, Thursday, Thursday, and Thursday from 4 PM to 1 AM. He believes this week's schedule is probably already completed, and agreed to contact his boss and plan to return to work next week. He had not yet started working at [employer], stating that he completed the training but had not been put on the schedule yet. His plan was to decrease his hours at a [employer], start working part-time at [employer], and eventually transition to working full-time at [employer] and quit his other job, as it does not pay as well. Physical Exam Psychiatric Orientation: alert and cooperative Apperance: appropriately dressed, appropriately groomed and appeared stated age Eye Contact: + fair eye contact Motor Behavior: steady gait and station and no abnormal motor movements Speech: normal rate/rhythm/volume of speech Stuttering Affect: + depressed affect and + constricted affect; + mood not congruent with affect "Good." Thought Process: goal directed thought process and linear/logical thought process Thought Content: reality based without delusions Suicidal Thoughts: denies suicidal thoughts Homicidal Thoughts: denies homicidal thoughts Hallucinations: no auditory hallucinations Cognition: attention grossly intact and language grossly intact; + recent memory not intact Poor memory for events while floridly psychotic Estimated Intelligence: consistent with education level Insight: + fair insight Judgement: + fair judgement Vital Signs (Past 24 Hours) Last Vital Signs Temp 36.3 C L 06/08/19 06:44 Pulse 112 H 06/08/19 06:45 Resp 20 06/08/19 06:44 BP 104/73 06/08/19 06:45 Results & Data Current Inpatient Medications Current Inpatient Medications: Current Inpatient Medications Acetaminophen (Tylenol) 650 mg PO Q4H PRN PRN Reason: Headache or Minor Fever Stop: 07/03/19 14:39 Last Admin: 06/05/19 14:40 Dose: 650 mg Documented by: Al Hydrox/Mg Hydrox/Simethicone (Maalox) 30 ml PO Q4H PRN PRN Reason: GI Upset Stop: 07/03/19 14:39 Last Admin: 06/04/19 18:47 Dose: 30 ml Documented by: Bismuth Subsalicylate (Kaopectate) 15 ml PO PRN PRN PRN Reason: Loose Stool Stop: 07/03/19 14:39 Clozapine (Clozapine) 200 mg PO HS LINO Stop: 07/06/19 21:59 Last Admin: 06/07/19 21:32 Dose: 200 mg Documented by: Haloperidol (Haldol) 10 mg PO Q6H PRN PRN Reason: Agitation Stop: 07/03/19 15:28 Last Admin: 06/06/19 08:47 Dose: 10 mg Documented by: Hydroxyzine HCl (Vistaril) 25 mg PO Q4H PRN PRN Reason: Anxiety Stop: 07/03/19 14:39 Hydroxyzine HCl (Vistaril) 50 mg PO HSZ PRN PRN Reason: Insomnia Stop: 07/03/19 14:39 Magnesium Hydroxide (Milk Of Magnesia) 30 ml PO DAILY PRN PRN Reason: Constipation Stop: 07/03/19 14:39 Sodium Chloride ([place] Nasal) 1 - 2 sprays NA PRN PRN PRN Reason: Nasal Dryness/Congestion Stop: 07/03/19 14:39 Mental Health & Subst Abuse Tx Psychiatrist Name of Psychiatrist: SUSANNAH Aguilar Psychiatrist's Date of Appointment with Psychiatrist: 06/24/19 Time of Appointment with Psychiatrist: 10:45 a.m. Psychiatric Appointment Comment: [facility], [place] Ramesh Director Ehs Name of Director Ehs: Neda Pena Phone Number for Director Ehs: [phone] Post Discharge Appointments Primary Care Physician Name Of Family Doctor: Duane Delgado MD, DEVYN Palmer CPT Code CPT Code 17566 [id number]
[2019-06-08] MEDS: cloZAPine 100 MG TAB PO SCH (21:11)
[2019-06-09] MEDS ORDERED: SERTRALINE HCL 50 MG TABLET PO SCH (09:00)
--- NOTE | 2019-06-09 11:21 | Psychiatric Progress Note ---
Date of Service June 09, 2019 Impression / Recommendations Impression This 28-year-old male with a history of schizophrenia and anxiety who presented to the emergency room 06/02/2019 on a 302, was initially admitted to the medical service due to right lower quadrant pain, and then transferred to the U on a 302 when medically cleared. He is on a 303 involuntary commitment as of 06/07/2019. He has been retitrated on clozapine due to concern for medication nonadherence at home, has tolerated that well, and psychosis is improving. He was being prescribed sertraline which he states was for anxiety, which was resumed after he had demonstrated improvement in degree of psychosis. Hallucinations, disorganization, and erratic behavior have improved, and he is hoping to be discharged soon to return to work. He is not yet at baseline, and we are working on a good plan to improve medication compliance and allow for adequate sleep, and he remains at risk of rapid decompensation with premature discharge. (1) Schizophrenia: 06/03 -Thinking and behavior are highly disorganized. His associations are loose, he perseverates or becomes mute, and his disorganized behaviors include presenting in public with a fully erect penis and disrobing in public settings. -The patient harbors series of believes that are not based in reality. One belief is that he is in some form of immediate danger and needs to leave the hospital immediately in order to be safe. 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 The patient has not been attending college for several years now due to his psychiatric disability. -The patient appears to be actively hallucinating. He speaks as if to persons unseen in an empty room, gestures towards empty chairs or empty rooms as if attempting to communicate with an unseen person, and makes elaborate hand gestures as if somehow "signaling" to persons or objects unseen -We will provide the patient with external structure in order to keep him safe. He has been placed on a locked unit, and a medically necessary private room and full view of the nursing station at all times. He is also being checked every 15 minutes by nursing staff. -The plan is to gradually titrate clozapine back to his usual dose of 200 mg at bedtime, and monitor the patient closely. We will encourage the patient to attend group, and activity therapies once his behavior becomes more appropriate. In the meantime, we will provide him with individual treatment that will include reality testing. -I am in agreement with the plan not to restart sertraline at this time. We will reconsider this as the patient stabilizes. 06/04 - continue plan as above, with clozaril titration to outpt dose over next couple days as ordered. holding any SSRI at this time given his current 06/06 -psychosis is improving; clozapine increased to 200 mg at bedtime today. -Meeting with [facility] Neda Pena today. -File for 303 involuntary commitment. -Explore ways to increase outpatient supports and structure. -Patient does not yet been able to tolerate groups or a roommate, as recently as yesterday was disrobing and exposing his genitals to female staff. 06/07 - psychosis continues to improve, continue clozapine 200mg HS. - 303 commitment granted. - Encourage group attendance and consider placing with roommate if able to tolerate. - Refer for [facility] med management services. 06/08 -continue clozapine 200 mg at bedtime. -Continue to work on discharge plans and healthy coping skills. -Patient agrees to postpone returning to work until the beginning of next week, and plans to call his boss today to discuss this. 06/09 - Continue clozapine 200mg qHS - CBC w/ diff ordered for tomorrow morning - last labs obtained 06/03/19 with no significant abnormality - Pt agreeable to referral for medication management through [facility] - Discussing reality-based steps necessary for discharge (2) Anxiety: 06/08 -patient reports sertraline 75 mg was being prescribed for the past couple of years for anxiety, and that it was helpful. It was held on admission, and he is willing to resume it. Start 50 mg daily today, and increase to 75 mg daily tomorrow. 06/09 - It appears sertraline had not been ordered yesterday, pt received 50mg this morning - Dose to be increased back to 75mg tomorrow morning (3) Abdominal pain, RLQ: 06/03 -The patient had originally been admitted to medicine on 06/02/2019 from the emergency room because of right lower quadrant pain. An abdominal CT had indicated some inflammation of the patient's appendix, but other studies were not consistent with acute appendicitis and he has been cleared medically. Nevertheless, we will monitor him closely on the unit for an exacerbation of his right lower quadrant pain and will reinvolve the surgical service as indicated. 06/08 -resolved. Risk Factors Assessment Male: Yes : No Do You Have Access To A Gun?: No Health Problems: No Mental Health Diagnoses: Yes Substance Use Disorders: No Previous Attempt: Yes (The patient reportedly has multiple attempts at suicide by overdose. A review of the historical record does not provide adequate data to draw conclusions regarding the patient's previous attempts, and additional information will be gathered from the patient as he stabilizes.) Previous Psychiatric Hospitalization: Yes Protective Factors Assessment : No Responsible for Young Children: No Employed: Yes Stable Relationships: No Supportive Family: No Interval History Identifying Information LEXII TEE is a 28-year-old M who currently lives in a psychiatric residential program. He has a known a history of schizophrenia. He and was admitted on 06/03/19 13:54 on a 302 involuntary commitment for grave disability due to his florid psychotic features and disruption to his usual routine that led to medication non-compliance. Pt was brought to ED with 302 petition from his outpatient geriatric case manager. He is on a 303 involuntary commitment as of 06/07/2019. Chief Complaint "I'm am doing fine, thank you." Review of Systems Notes Constitutional: denied Cardiovascular: denied Respiratory: denied Gastrointestinal: denied Neurological: denied Psychiatric: denies symptoms other than stated above Total of at least 10 systems reviewed, pertinent positives as above and in HPI. Sleep Information Total Hours of Sleep: 6 Sleep Comments: pt on q-15 minute checks Meal Information Percent Meal Consumed - Breakfast: 100 Percent Meal Consumed - Lunch: 100 Percent Meal Consumed - Dinner: 100 Subjective Subjective Patient was seen & assessed and interval progress reviewed with nursing and social work. Staff reports the patient has been appearing improved. He has bee n observed to be talking to himself in his room, and making motions as if in conversation with another - but these are done when patient is alone in his room. He does not demonstrate these behaviors when he is walking around the unit, or when he is actively engaged in conversation with staff. Pt is hopeful for discharge soon in order to return to work, but is not yet presumed to be at baseline. Will attempt referral for mobile medication management services today. Pt was seen today to assess progress since admission. Pt states he is "fine, thank you." He reports feeling as though he is getting better. Pt states that the reason for his admission is that he "fell on my way walking home from work, and I hit my head. My vision was bad, but my eyesight has been restored." Pt presented this story to the psychiatrist during an assessment earlier in the week as well. When reminded of reports of abdominal pain and incidental finding of inflamed appendix, patient admits that her remembers this as well. Pt denies any ongoing abdominal pain. Pt was asked about the presence of auditory or visual hallucinations. He states, "not anymore." Pt reports he last experienced "hearing voices" in 04/2018, he believes it to have been a result of medication reaction after a suicide attempt by overdose. He reports he has not heard voices when alone in his room since that time. Pt denies suicidal or homicidal ideation. He has been continuing to tolerate clozapine, and is willing to resume sertraline today. Pt denies other needs or concerns at this time. Physical Exam Psychiatric Orientation: alert, oriented x 3 and cooperative Apperance: appropriately dressed, appropriately groomed and appeared stated age Eye Contact: good eye contact Motor Behavior: steady gait and station and no abnormal motor movements No abnormal motor behavior observed during assessment, pt at times has been observed to be punching at the air or moving his hands as if talking to someone - this behavior does not occur when patient is out of the unit or engaged in conversation with staff Speech: normal rate/rhythm/volume of speech (Pt does have a noteable stutter, ongoing finding) Affect: + flat affect Mood: + anxious mood ("Sometimes I do get anxious" ) and "I'm fine. Feeling better" Thought Process: goal directed thought process, clear/coherent thought process and + concrete thought process Thought Content: + cognitive distortions (believes his admission is because he "fell on my way home from work") Pt does not verbalize any delusional thought content during assessment. He asked reality-based questions and is goal-oriented toward discharge. Suicidal Thoughts: denies suicidal thoughts Homicidal Thoughts: denies homicidal thoughts Hallucinations: no auditory hallucinations and no visual hallucinations Patient denies the presence of auditory or visual hallucinations, though at times appears to be responding to internal stimuli when alone in his room. States he has not experienced auditory hallucinations "since I overdosed on medications in 04/2018 and started hearing voices" Cognition: remote memory grossly intact, attention grossly intact and language grossly intact; + recent memory not intact (Unclear about reason for admission/events leading to hospitalization) Estimated Intelligence: consistent with education level Insight: + limited insight (likely due to long history of disease) Judgement: + limited judgement (likely due to long history of disease ) Vital Signs (Past 24 Hours) Last Vital Signs Temp 36.5 C 06/09/19 06:00 Pulse 112 H 06/09/19 06:30 Resp 18 06/09/19 06:00 BP 135/89 06/09/19 06:30 Results & Data Current Inpatient Medications Current Inpatient Medications: Current Inpatient Medications Acetaminophen (Tylenol) 650 mg PO Q4H PRN PRN Reason: Headache or Minor Fever Stop: 07/03/19 14:39 Last Admin: 06/05/19 14:40 Dose: 650 mg Documented by: Al Hydrox/Mg Hydrox/Simethicone (Maalox) 30 ml PO Q4H PRN PRN Reason: GI Upset Stop: 07/03/19 14:39 Last Admin: 06/04/19 18:47 Dose: 30 ml Documented by: Bismuth Subsalicylate (Kaopectate) 15 ml PO PRN PRN PRN Reason: Loose Stool Stop: 07/03/19 14:39 Clozapine (Clozapine) 200 mg PO HS LINO Stop: 07/06/19 21:59 Last Admin: 06/08/19 21:11 Dose: 200 mg Documented by: Haloperidol (Haldol) 10 mg PO Q6H PRN PRN Reason: Agitation Stop: 07/03/19 15:28 Last Admin: 06/06/19 08:47 Dose: 10 mg Documented by: Hydroxyzine HCl (Vistaril) 25 mg PO Q4H PRN PRN Reason: Anxiety Stop: 07/03/19 14:39 Hydroxyzine HCl (Vistaril) 50 mg PO HSZ PRN PRN Reason: Insomnia Stop: 07/03/19 14:39 Magnesium Hydroxide (Milk Of Magnesia) 30 ml PO DAILY PRN PRN Reason: Constipation Stop: 07/03/19 14:39 Sertraline HCl (Zoloft) 50 mg PO QAM LINO Stop: 07/09/19 08:59 Last Admin: 06/09/19 09:12 Dose: 50 mg Documented by: Sodium Chloride ([place] Nasal) 1 - 2 sprays NA PRN PRN PRN Reason: Nasal Dryness/Congestion Stop: 07/03/19 14:39 Mental Health & Subst Abuse Tx Psychiatrist Name of Psychiatrist: [facility] Paxton Aguilar Psychiatrist's Date of Appointment with Psychiatrist: 06/24/19 Time of Appointment with Psychiatrist: 10:45 a.m. Psychiatric Appointment Comment: [address] [place], [place] [address]Domitila PA Dude Ranch Manager Name of Dude Ranch Manager: Neda Pena Phone Number for Dude Ranch Manager: [phone] Date of Appointment with Dude Ranch Manager: 06/13/19 Time of Appointment with Dude Ranch Manager: 1:30 p.m. Case Management Appointment Comment: Will meet you at [facility] Post Discharge Appointments Primary Care Physician Name Of Family Doctor: [facility] - Dr. Delgado Primary Care Time of Appointment with PCP: Please follow up as needed Provider Appointment Comment: [address] [facility] Other #1: Name of Aftercare Appointment: [facility] Mobile Medication Management Aftercare Appointment Comment: Will contact you to establish services (referral completed) Contact Information Discharge Discharge Address: [address] [place] [address], [place] [address] CPT Code CPT Code 56840
[2019-06-09] MEDS: cloZAPine 100 MG TAB PO SCH (20:32)
[2019-06-10 07:16] LABS: Basophils # (auto) 0.04 K/uL (0-0.2); Basophils % (auto) 0.6 %; Eosinophils # (auto) 0.33 K/uL (0-0.5); Eosinophils % (auto) 4.6 %; Hemoglobin 13.1 g/dL (14.0-18.0); Immature Granulocytes # (auto) 0.01 K/uL (0.00-0.02); Immature Granulocytes % (auto) 0.1 %; Lymphocytes # (auto) 2.89 K/uL (1.2-3.4); Lymphocytes % (auto) 40.4 %; Mean Corpuscular Hemoglobin 30.5 pg (25-34); Mean Corpuscular Hgb Conc 33.6 g/dL (32-36); Mean Corpuscular Volume 90.9 fL (80-100); Mean Platelet Volume 10.2 fL (7.4-10.4); Monocytes # (auto) 0.53 K/uL (0.11-0.59); Monocytes % (auto) 7.4 %; Neutrophils # (auto) 3.36 K/uL (1.4-6.5); Neutrophils % (auto) 46.9 %; Platelet Count 325 K/uL (130-400); RDW Coefficient of Variation 14.6 % (11.5-14.5); RDW Standard Deviation 48.5 fL (36.4-46.3); Red Blood Count 4.29 M/uL (4.7-6.1); White Blood Count 7.16 K/uL (4.8-10.8)
[2019-06-10] MEDS: SERTRALINE HCL 50 MG TABLET PO SCH (08:52)
--- NOTE | 2019-06-10 10:48 | Psychiatric Progress Note ---
Date of Service June 10, 2019 Impression / Recommendations Impression This 28-year-old male with a history of schizophrenia and anxiety who presented to the emergency room 06/02/2019 on a 302, was initially admitted to the medical service due to right lower quadrant pain, and then transferred to the U on a 302 when medically cleared. He is on a 303 involuntary commitment as of 06/07/2019. He has been retitrated on clozapine due to concern for medication nonadherence at home, has tolerated that well, and psychosis is improving. Will plan to titrate his dosage to 300mg as it is unclear that concerns for the structure of his outpatient setting will be ideal. Risks, benefits, and potential side effects were reviewed. Pt verbalized understanding and agreed to this medication change. Pt is tolerating his home dose of sertraline 75mg. Hallucinations, disorganization, and erratic behavior have improved, and patient is now given what appears to be reality-based explanations of his gestures and speaking to himself - reporting this is usual behavior as he attempts to work on improving his speech impediment. Although patient's historical diagnosis of schizophrenia may have led to a rehearsed rationalization of these behaviors, it does appear to be more consistent with his reports of attempts to achieve his long-term career goals by improving his communication. Will plan to continue inpatient psychiatric hospitalization to ensure patient tolerates dose adjustment and allow for mitigation of any additional risk factors prior to discharge home. (1) Schizophrenia: 06/03 -Thinking and behavior are highly disorganized. His associations are loose, he perseverates or becomes mute, and his disorganized behaviors include presenting in public with a fully erect penis and disrobing in public settings. -The patient harbors series of believes that are not based in reality. One belief is that he is in some form of immediate danger and needs to leave the hospital immediately in order to be safe. 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 The patient has not been attending college for several years now due to his psychiatric disability. -The patient appears to be actively hallucinating. He speaks as if to persons unseen in an empty room, gestures towards empty chairs or empty rooms as if attempting to communicate with an unseen person, and makes elaborate hand g estures as if somehow "signaling" to persons or objects unseen -We will provide the patient with external structure in order to keep him safe. He has been placed on a locked unit, and a medically necessary private room and full view of the nursing station at all times. He is also being checked every 15 minutes by nursing staff. -The plan is to gradually titrate clozapine back to his usual dose of 200 mg at bedtime, and monitor the patient closely. We will encourage the patient to attend group, and activity therapies once his behavior becomes more appropriate. In the meantime, we will provide him with individual treatment that will include reality testing. -I am in agreement with the plan not to restart sertraline at this time. We will reconsider this as the patient stabilizes. 06/04 - continue plan as above, with clozaril titration to outpt dose over next couple days as ordered. holding any SSRI at this time given his current 06/06 -psychosis is improving; clozapine increased to 200 mg at bedtime today. -Meeting with [facility] Neda Pena today. -File for 303 involuntary commitment. -Explore ways to increase outpatient supports and structure. -Patient does not yet been able to tolerate groups or a roommate, as recently as yesterday was disrobing and exposing his genitals to female staff. 06/07 - psychosis continues to improve, continue clozapine 200mg HS. - 303 commitment granted. - Encourage group attendance and consider placing with roommate if able to tolerate. - Refer for [email or web address] mobile med management services. 06/08 -continue clozapine 200 mg at bedtime. -Continue to work on discharge plans and healthy coping skills. -Patient agrees to postpone returning to work until the beginning of next week, and plans to call his boss today to discuss this. 06/09 - Continue clozapine 200mg qHS - CBC w/ diff ordered for tomorrow morning - last labs obtained 06/03/19 with no significant abnormality - Pt agreeable to referral for medication management through [facility] - Discussing reality-based steps necessary for discharge 06/10 - Titrate clozapine to 300mg; pt reports previously tolerating this dosage. Concern for possibility destabilization after discharge if patient remains on hose dosage - Pt also admits that the 300mg dosage has contributed to sedation, which allows us to limit polypharmacy by not scheduling a sleep aid - CBC w/diff reviewed; historical normocytic anemia - no significant change from previous labs - Pt met with medical office representative from [facility] to discuss mobile medication management referral - Seems to be engaging in reality-based conversations; motivated participation in discharge planning (2) Anxiety: 06/08 -patient reports sertraline 75 mg was being prescribed for the past couple of years for anxiety, and that it was helpful. It was held on admission, and he is willing to resume it. Start 50 mg daily today, and increase to 75 mg daily tomorrow. 06/09 - It appears sertraline had not been ordered yesterday, pt received 50mg this morning - Dose to be increased back to 75mg tomorrow morning 06/10 - Continue home dose of sertraline 75mg (3) Abdominal pain, RLQ: 06/03 -The patient had originally been admitted to medicine on 06/02/2019 from the emergency room because of right lower quadrant pain. An abdominal CT had indicated some inflammation of the patient's appendix, but other studies were not consistent with acute appendicitis and he has been cleared medically. Nevertheless, we will monitor him closely on the unit for an exacerbation of his right lower quadrant pain and will reinvolve the surgical service as indicated. 06/08 -resolved. Risk Factors Assessment Male: Yes : No Do You Have Access To A Gun?: No Health Problems: No Mental Health Diagnoses: Yes Substance Use Disorders: No Previous Attempt: Yes (The patient reportedly has multiple attempts at suicide by overdose. A review of the historical record does not provide adequate data to draw conclusions regarding the patient's previous attempts, and additional information will be gathered from the patient as he stabilizes.) Previous Psychiatric Hospitalization: Yes Protective Factors Assessment : No Responsible for Young Children: No Employed: Yes Stable Relationships: No Supportive Family: No Interval History Identifying Information LEXII TEE is a 28-year-old M who currently lives in a psychiatric residential program. He has a known a history of schizophrenia. He and was admitted on 06/03/19 13:54 on a 302 involuntary commitment for grave disability due to his florid psychotic features and disruption to his usual routine that led to medication non-compliance. Pt was brought to ED with 302 petition from his outpatient housing case manager. He is on a 303 involuntary commitment as of 06/07/2019. Chief Complaint "I am better, very good." Review of Systems Notes Constitutional: reports occasional difficulty falling and staying asleep Cardiovascular: denied Respiratory: denied Gastrointestinal: denied Neurological: denied Psychiatric: denies symptoms other than stated above Total of at least 10 systems reviewed, pertinent positives as above and in HPI. Sleep Information Total Hours of Sleep: 7.25 Sleep Comments: pt on q-15 minute checks Meal Information Percent Meal Consumed - Breakfast: 100 Percent Meal Consumed - Lunch: 100 Percent Meal Consumed - Dinner: 100 Subjective Subjective Patient was seen & assessed and interval progress reviewed with treatment team. Staff report the patient has a meeting with [facility] medication management this morning. He rated his mood a 10/10 and "happy" last evening, attending and participating in groups. Pt is reportedly continuing to gesture to himself, both in the privacy of his room and at times during groups. Pt was seen today to assess progress since admission. Pt states that he is "better, very good" today. Pt begins by admitting his realization that working overtime at his job is interfering with him getting adequate sleep. Pt states, "I usually work over 60 hours, but [employer] has been telling me I need to limit this. I know this is right." Pt states that he had a roommate while at the [facility], and often had difficulty falling and staying asleep. While the patient admits his sleep has improved since moving to an apartment and having his own room, he admits that he continues to experience occasional difficulties. Pt states that he has started training at [employer] to begin a new job. He is hopeful to keep this new position to a 40 hour a week limit, as his pay rate will be higher. Pt states he is hopeful this will limit any changes to his finances. As patient continued to participate in conversations in a reality-based manner, this provider directly inquired about his frequent gesturing to himself on the unit. Pt continues to deny auditory or visual hallucinations. He shares with this provider that he is aware that he gestures to himself, and explains that this is because hand movements improve the severity of his stutter/speech impediment during conversations. Pt states - "I'm practicing, I have found that if I make hand gestures I am able to communicate more clearly." He states "I had a job interview last week, and the interviewer said they could not even hear me, my stutter was bad." Pt is able to explain to this provider his career goals, and that he hopes to work in a field in which he will have to regularly speak with clients. He reports, "I feel comfortable here, you guys are psychiatrists. I can practice because I have nothing else to do. 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 And when I'm home, I can't be doing this or people will think that I'm crazy. So I'm using the time to practice here." Pt denies SI/HI, and denies auditory or visual hallucinations. He is agreeable to titration of his clozapine to prevent destabilization of symptoms with discharge and possible return to an unstructured environment. He states he has previously been on this dosage of the medication and found it to be somewhat sedating. He is requesting that we utilize the dose increase to assist with sleep rather than adding a separate sleep aid. Physical Exam Psychiatric Orientation: alert, oriented x 3 and cooperative (and pleasant) Apperance: appropriately dressed, appropriately groomed and appeared stated age Eye Contact: good eye contact Motor Behavior: steady gait and station and no abnormal motor movements Speech: normal rate/rhythm/volume of speech (persistent stutter; consistent finding) Affect: + flat affect; + mood not congruent with affect (consistently reports "good" and "happy" mood, but continues to appear flat) Mood: no depressed mood and no anxious mood "I'm fine, very happy" Thought Process: goal directed thought process, clear/coherent thought process and thought association intact Thought Content: reality based without delusions (patient is not verbalizing clearly delusional beliefs); not paranoid and no hopelessness Pt is able to participate in insightful conversations about his employment and explains the reasoning behind his gesturing to himself (see below); while his historical diagnosis of schizophrenia is long-standing, and he may be making attempts to rationalize his behavior - he is also quite articulate in conversation, and is reasoning is perceived to be reality-based Suicidal Thoughts: denies suicidal thoughts, denies suicidal plan and denies suicidal intent Homicidal Thoughts: denies homicidal thoughts Hallucinations: no auditory hallucinations and no visual hallucinations Reports what was perceived as patient responding to internal stimuli is actually him practicing speech and hand gestures as part of efforts to reduce the severity of his speech impediment; states this is not behavior he displays at home, but is doing here because he feels comfortable with staff Cognition: remote memory grossly intact, attention grossly intact and language grossly intact Insight: + fair insight Judgement: + fair judgement Vital Signs (Past 24 Hours) Last Vital Signs Temp 36.3 C L 06/10/19 06:39 Pulse 144 H 06/10/19 06:40 Resp 16 06/10/19 06:39 BP 134/78 06/10/19 06:40 Results & Data Laboratory Results Laboratory Results - last 24 hr 06/10/19 07:06 WBC 7.16 RBC 4.29 L Hgb 13.1 L Hct 39.0 L MCV 90.9 MCH 30.5 MCHC 33.6 RDW Std Deviation 48.5 H RDW Coeff of Tawanna 14.6 H Plt Count 325 MPV 10.2 Immature Gran % (Auto) 0.1 Neut % (Auto) 46.9 Lymph % (Auto) 40.4 [place] % (Auto) 7.4 Eos % (Auto) 4.6 Baso % (Auto) 0.6 Immature Gran # (Auto) 0.01 Neut # (Auto) 3.36 Lymph # (Auto) 2.89 [place] # (Auto) 0.53 Eos # (Auto) 0.33 Baso # (Auto) 0.04 Current Inpatient Medications Current Inpatient Medications: Current Inpatient Medications Acetaminophen (Tylenol) 650 mg PO Q4H PRN PRN Reason: Headache or Minor Fever Stop: 07/03/19 14:39 Last Admin: 06/05/19 14:40 Dose: 650 mg Documented by: Al Hydrox/Mg Hydrox/Simethicone (Maalox) 30 ml PO Q4H PRN PRN Reason: GI Upset Stop: 07/03/19 14:39 Last Admin: 06/04/19 18:47 Dose: 30 ml Documented by: Bismuth Subsalicylate (Kaopectate) 15 ml PO PRN PRN PRN Reason: Loose Stool Stop: 07/03/19 14:39 Clozapine (Clozapine) 200 mg PO HS LINO Stop: 07/06/19 21:59 Last Admin: 06/09/19 20:32 Dose: 200 mg Documented by: Haloperidol (Haldol) 10 mg PO Q6H PRN PRN Reason: Agitation Stop: 07/03/19 15:28 Last Admin: 06/06/19 08:47 Dose: 10 mg Documented by: Hydroxyzine HCl (Vistaril) 25 mg PO Q4H PRN PRN Reason: Anxiety Stop: 07/03/19 14:39 Hydroxyzine HCl (Vistaril) 50 mg PO HSZ PRN PRN Reason: Insomnia Stop: 07/03/19 14:39 Magnesium Hydroxide (Milk Of Magnesia) 30 ml PO DAILY PRN PRN Reason: Constipation Stop: 07/03/19 14:39 Sertraline HCl (Zoloft) 75 mg PO QAM LINO Stop: 07/10/19 08:59 Last Admin: 06/10/19 08:52 Dose: 75 mg Documented by: Sodium Chloride ([place] Nasal) 1 - 2 sprays NA PRN PRN PRN Reason: Nasal Dryness/Congestion Stop: 07/03/19 14:39 Mental Health & Subst Abuse Tx Psychiatrist Name of Psychiatrist: MADISON Paxton Aguilar Psychiatrist's Date of Appointment with Psychiatrist: 06/24/19 Time of Appointment with Psychiatrist: 10:45 a.m. Psychiatric Appointment Comment: [address] [place] [address] [place] Patient Safety Officer Name of Patient Safety Officer: Neda Pena Phone Number for Patient Safety Officer: [phone] Date of Appointment with Patient Safety Officer: 06/13/19 Time of Appointment with Patient Safety Officer: 1:30 p.m. Case Management Appointment Comment: Will meet you at [facility] Post Discharge Appointments Primary Care Physician Name Of Family Doctor: [facility] - Dr. Delgado Primary Care Time of Appointment with PCP: Please follow up as needed Provider Appointment Comment: [address] [facility] Other #1: Name of Aftercare Appointment: [facility] Med[facility] Management - Shana Aftercare Appointment Comment: Will contact you to establish services (referral completed) Contact Information Discharge Discharge Address: [address] [place] [address], [place] [address] CPT Code CPT Code 43235
[2019-06-10] MEDS ORDERED: PROPRANOLOL HCL 10 MG TAB PO STA (15:04)
[2019-06-10] MEDS ORDERED: PROPRANOLOL HCL 10 MG TAB PO SCH (21:00)
[2019-06-10] MEDS: cloZAPine 100 MG TAB PO SCH (21:25)
[2019-06-11] MEDS: SERTRALINE HCL 50 MG TABLET PO SCH (08:49)
--- NOTE | 2019-06-11 15:36 | Psychiatric Progress Note ---
Date of Service June 11, 2019 Impression / Recommendations Impression This 28-year-old male with a history of schizophrenia and anxiety who presented to the emergency room 06/02/2019 on a 302, was initially admitted to the medical service due to right lower quadrant pain, and then transferred to the U on a 302 when medically cleared. He is on a 303 involuntary commitment as of 06/07/2019. He has been retitrated on clozapine due to concern for medication nonadherence at home, has tolerated that well, and psychosis is improving. Hallucinations, disorganization, and erratic behavior improving. Will plan to continue inpatient psychiatric hospitalization to ensure patient tolerates dose adjustment and allow for mitigation of any additional risk factors prior to discharge home. (1) Schizophrenia: 06/03 -Thinking and behavior are highly disorganized. His associations are loose, he perseverates or becomes mute, and his disorganized behaviors include presenting in public with a fully erect penis and disrobing in public settings. -The patient harbors series of believes that are not based in reality. One belief is that he is in some form of immediate danger and needs to leave the hospital immediately in order to be safe. 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 The patient has not been attending college for several years now due to his psychiatric disability. -The patient appears to be actively hallucinating. He speaks as if to persons unseen in an empty room, gestures towards empty chairs or empty rooms as if attempting to communicate with an unseen person, and makes elaborate hand gestures as if somehow "signaling" to persons or objects unseen -We will provide the patient with external structure in order to keep him safe. He has been placed on a locked unit, and a medically necessary private room and full view of the nursing station at all times. He is also being checked every 15 minutes by nursing staff. -The plan is to gradually titrate clozapine back to his usual dose of 200 mg at bedtime, and monitor the patient closely. We will encourage the patient to attend group, and activity therapies once his behavior becomes more appropriate. In the meantime, we will provide him with individual treatment that will include reality testing. -I am in agreement with the plan not to restart sertraline at this time. We will reconsider this as the patient stabilizes. 06/04 - continue plan as above, with clozaril titration to outpt dose over next couple days as ordered. holding any SSRI at this time given his current 06/06 -psychosis is improving; clozapine increased to 200 mg at bedtime today. -Meeting with [facility] Neda Pena today. -File for 303 involuntary commitment. -Explore ways to increase outpatient supports and structure. -Patient does not yet been able to tolerate groups or a roommate, as recently as yesterday was disrobing and exposing his genitals to female staff. 06/07 - psychosis continues to improve, continue clozapine 200mg HS. - 303 commitment granted. - Encourage group attendance and consider placing with roommate if able to tolerate. - Refer for [employer] mobile med management services. 06/08 -continue clozapine 200 mg at bedtime. -Continue to work on discharge plans and healthy coping skills. -Patient agrees to postpone returning to work until the beginning of next week, and plans to call his boss today to discuss this. 06/09 - Continue clozapine 200mg qHS - CBC w/ diff ordered for tomorrow morning - last labs obtained 06/03/19 with no significant abnormality - Pt agreeable to referral for medication management through [employer] - Discussing reality-based steps necessary for discharge 06/10 - Titrate clozapine to 300mg; pt reports previously tolerating this dosage. Concern for possibility destabilization after discharge if patient remains on hose dosage - Pt also admits that the 300mg dosage has contributed to sedation, which allows us to limit polypharmacy by not scheduling a sleep aid - CBC w/diff reviewed; historical normocytic anemia - no significant change from previous labs - Pt met with inventory representative from [employer] to discuss mobile medication management referral - Seems to be engaging in reality-based conversations; motivated participation in discharge planning 06/11 -Appears to have tolerated increased clozapine dose adequately so far. -Requires weekly CBC and differential next to 06/17/2019 -Behaviors remain disorganized and bizarre on the unit but with behavioral recompensation evident since time of admission -We will see how he does in the next 24 hours as we work towards discharge. He is at high risk for a quick decompensation if discharged prematurely. (2) Anxiety: 06/08 -patient reports sertraline 75 mg was being prescribed for the past couple of years for anxiety, and that it was helpful. It was held on admission, and he is willing to resume it. Start 50 mg daily today, and increase to 75 mg daily tomorrow. 06/09 - It appears sertraline had not been ordered yesterday, pt received 50mg this morning - Dose to be increased back to 75mg tomorrow morning 06/10 - Continue home dose of sertraline 75mg (3) Abdominal pain, RLQ: 06/03 -The patient had originally been admitted to medicine on 06/02/2019 from the emergency room because of right lower quadrant pain. An abdominal CT had indicated some inflammation of the patient's appendix, but other studies were not consistent with acute appendicitis and he has been cleared medically. Nevertheless, we will monitor him closely on the unit for an exacerbation of his right lower quadrant pain and will reinvolve the surgical service as indicated. 06/08 -resolved. Risk Factors Assessment Male: Yes : No Do You Have Access To A Gun?: No Health Problems: No Mental Health Diagnoses: Yes Substance Use Disorders: No Previous Attempt: Yes (The patient reportedly has multiple attempts at suicide by overdose. A review of the historical record does not provide adequate data to draw conclusions regarding the patient's previous attempts, and additional information will be gathered from the patient as he stabilizes.) Previous Psychiatric Hospitalization: Yes Protective Factors Assessment : No Responsible for Young Children: No Employed: Yes Stable Relationships: No Supportive Family: No Interval History Identifying Information LEXII TEE is a 28-year-old M who currently lives in a psychiatric residential program. He has a known a history of schizophrenia. He and was admitted on 06/03/19 13:54 on a 302 involuntary commitment for grave disability due to his florid psychotic features and disruption to his usual routine that led to medication non-compliance. Pt was brought to ED with 302 petition from his outpatient manager rn case. He is on a 303 involuntary commitment as of 06/07/2019. Chief Complaint "Can I be discharged to go to [facility]?". Review of Systems Notes Denies dizziness Sleep Information Total Hours of Sleep: 8 Sleep Comments: pt on q-15 minute checks Meal Information Percent Meal Consumed - Breakfast: 100 Percent Meal Consumed - Lunch: 100 Percent Meal Consumed - Dinner: 100 Subjective Subjective Patient was seen & assessed and interval progress reviewed with treatment team. He is described by staff as nervous appearing, pacing yesterday. Nursing staff describe continued observation of disorganized behavior such as asking to retrieve something out of his backpack and removing only a straw to throw away. Clozapine last increased on the to 300 mg nightly. This morning he asks if he can be discharged to attend a Bible study but is accepting of need for continued monitoring in the setting of continued behavioral disorganization and recent clozapine titration. He denies feeling subjectively any side effects following the clozapine titration. He reports that his sleep has improved. He denies thoughts of harm to himself or anyone else. Physical Exam Psychiatric Orientation: alert and cooperative Apperance: appropriately dressed Eye Contact: + fair eye contact Motor Behavior: no psychomotor agitation and n akathisia Speech: + abnormal rate/rhythm/volume of speech Affect: + blunted affect; no angry affect Mood: no depressed mood Thought Process: goal directed thought process Thought Content: no delusions Suicidal Thoughts: denies suicidal thoughts Homicidal Thoughts: denies homicidal thoughts Hallucinations: no auditory hallucinations and no visual hallucinations Cognition: recent memory grossly intact Insight: + fair insight Judgement: + fair judgement Vital Signs (Past 24 Hours) Last Vital Signs Temp 36.2 C L 06/11/19 06:49 Pulse 91 H 06/11/19 06:49 Resp 18 06/11/19 06:49 BP 142/87 H 06/11/19 06:49 Results & Data Current Inpatient Medications Current Inpatient Medications: Current Inpatient Medications Acetaminophen (Tylenol) 650 mg PO Q4H PRN PRN Reason: Headache or Minor Fever Stop: 07/03/19 14:39 Last Admin: 06/05/19 14:40 Dose: 650 mg Documented by: Al Hydrox/Mg Hydrox/Simethicone (Maalox) 30 ml PO Q4H PRN PRN Reason: GI Upset Stop: 07/03/19 14:39 Last Admin: 06/04/19 18:47 Dose: 30 ml Documented by: Bismuth Subsalicylate (Kaopectate) 15 ml PO PRN PRN PRN Reason: Loose Stool Stop: 07/03/19 14:39 Clozapine (Clozapine) 300 mg PO HS LINO Stop: 07/10/19 21:59 Last Admin: 06/10/19 21:25 Dose: 300 mg Documented by: Haloperidol (Haldol) 10 mg PO Q6H PRN PRN Reason: Agitation Stop: 07/03/19 15:28 Last Admin: 06/06/19 08:47 Dose: 10 mg Documented by: Hydroxyzine HCl (Vistaril) 25 mg PO Q4H PRN PRN Reason: Anxiety Stop: 07/03/19 14:39 Hydroxyzine HCl (Vistaril) 50 mg PO HSZ PRN PRN Reason: Insomnia Stop: 07/03/19 14:39 Magnesium Hydroxide (Milk Of Magnesia) 30 ml PO DAILY PRN PRN Reason: Constipation Stop: 07/03/19 14:39 Sertraline HCl (Zoloft) 75 mg PO QAM LINO Stop: 07/10/19 08:59 Last Admin: 06/11/19 08:49 Dose: 75 mg Documented by: Sodium Chloride ([place] Nasal) 1 - 2 sprays NA PRN PRN PRN Reason: Nasal Dryness/Congestion Stop: 07/03/19 14:39 Mental Health & Subst Abuse Tx Psychiatrist Name of Psychiatrist: [facility] Paxton Aguilar Psychiatrist's Date of Appointment with Psychiatrist: 06/24/19 Time of Appointment with Psychiatrist: 10:45 a.m. Psychiatric Appointment Comment: [address] [place] [address] [place] Hide Grader Name of Hide Grader: Neda Pena Phone Number for Hide Grader: [phone] Date of Appointment with Hide Grader: 06/13/19 Time of Appointment with Hide Grader: 1:30 p.m. Case Management Appointment Comment: Will meet you at [facility] Post Discharge Appointments Primary Care Physician Name Of Family Doctor: [facility] - Dr. Delgado Primary Care Time of Appointment with PCP: Please follow up as needed Provider Appointment Comment: [address] [facility] Contact Information Discharge Discharge Address: [address] [place] [address], [place] [address] CPT Code CPT Code 68448
[2019-06-11] MEDS: cloZAPine 100 MG TAB PO SCH (21:09)
[2019-06-12] MEDS: SERTRALINE HCL 50 MG TABLET PO SCH (08:54)
--- NOTE | 2019-06-12 16:07 | Psychiatric Progress Note ---
Date of Service June 12, 2019 Impression / Recommendations Impression This 28-year-old male with a history of schizophrenia and anxiety who presented to the emergency room 06/02/2019 on a 302, was initially admitted to the medical service due to right lower quadrant pain, and then transferred to the U on a 302 when medically cleared. He is on a 303 involuntary commitment as of 06/07/2019. He has been retitrated on clozapine due to concern for medication nonadherence at home, has tolerated that well, and psychosis is improving. Hallucinations, disorganization, and erratic behavior improving. Will plan to continue inpatient psychiatric hospitalization to ensure patient tolerates dose adjustment and allow for mitigation of any additional risk factors prior to discharge home. (1) Schizophrenia: 06/03 -Thinking and behavior are highly disorganized. His associations are loose, he perseverates or becomes mute, and his disorganized behaviors include presenting in public with a fully erect penis and disrobing in public settings. -The patient harbors series of believes that are not based in reality. One belief is that he is in some form of immediate danger and needs to leave the hospital immediately in order to be safe. 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 The patient has not been attending college for several years now due to his psychiatric disability. -The patient appears to be actively hallucinating. He speaks as if to persons unseen in an empty room, gestures towards empty chairs or empty rooms as if attempting to communicate with an unseen person, and makes elaborate hand gestures as if somehow "signaling" to persons or objects unseen -We will provide the patient with external structure in order to keep him safe. He has been placed on a locked unit, and a medically necessary private room and full view of the nursing station at all times. He is also being checked every 15 minutes by nursing staff. -The plan is to gradually titrate clozapine back to his usual dose of 200 mg at bedtime, and monitor the patient closely. We will encourage the patient to attend group, and activity therapies once his behavior becomes more appropriate. In the meantime, we will provide him with individual treatment that will include reality testing. -I am in agreement with the plan not to restart sertraline at this time. We will reconsider this as the patient stabilizes. 06/04 - continue plan as above, with clozaril titration to outpt dose over next couple days as ordered. holding any SSRI at this time given his current 06/06 -psychosis is improving; clozapine increased to 200 mg at bedtime today. -Meeting with [facility] Neda Pena today. -File for 303 involuntary commitment. -Explore ways to increase outpatient supports and structure. -Patient does not yet been able to tolerate groups or a roommate, as recently as yesterday was disrobing and exposing his genitals to female staff. 06/07 - psychosis continues to improve, continue clozapine 200mg HS. - 303 commitment granted. - Encourage group attendance and consider placing with roommate if able to tolerate. - Refer for [employer] mobile med management services. 06/08 -continue clozapine 200 mg at bedtime. -Continue to work on discharge plans and healthy coping skills. -Patient agrees to postpone returning to work until the beginning of next week, and plans to call his boss today to discuss this. 06/09 - Continue clozapine 200mg qHS - CBC w/ diff ordered for tomorrow morning - last labs obtained 06/03/19 with no significant abnormality - Pt agreeable to referral for medication management through [employer] - Discussing reality-based steps necessary for discharge 06/10 - Titrate clozapine to 300mg; pt reports previously tolerating this dosage. Concern for possibility destabilization after discharge if patient remains on hose dosage - Pt also admits that the 300mg dosage has contributed to sedation, which allows us to limit polypharmacy by not scheduling a sleep aid - CBC w/diff reviewed; historical normocytic anemia - no significant change from previous labs - Pt met with logistics service representative from [employer] to discuss mobile medication management referral - Seems to be engaging in reality-based conversations; motivated participation in discharge planning 06/11 -Appears to have tolerated increased clozapine dose adequately so far. -Requires weekly CBC and differential next to 06/17/2019 -Behaviors remain disorganized and bizarre on the unit but with behavioral recompensation evident since time of admission -We will see how he does in the next 24 hours as we work towards discharge. He is at high risk for a quick decompensation if discharged prematurely. 06/12 -Patient certainly appears to be more linear and logical however there does appear to be residual behaviors possibly associated with internal stimuli. As his manager case is scheduled for a visit tomorrow, it seems that would be a good opportunity to assess current clinical status as compared to baseline in considering discharge. (2) Anxiety: 06/08 -patient reports sertraline 75 mg was being prescribed for the past couple of years for anxiety, and that it was helpful. It was held on admission, and he is willing to resume it. Start 50 mg daily today, and increase to 75 mg daily tomorrow. 06/09 - It appears sertraline had not been ordered yesterday, pt received 50mg this morning - Dose to be increased back to 75mg tomorrow morning 06/10 - Continue home dose of sertraline 75mg (3) Abdominal pain, RLQ: 06/03 -The patient had originally been admitted to medicine on 06/02/2019 from the emergency room because of right lower quadrant pain. An abdominal CT had indicated some inflammation of the patient's appendix, but other studies were not consistent with acute appendicitis and he has been cleared medically. Nevertheless, we will monitor him closely on the unit for an exacerbation of his right lower quadrant pain and will reinvolve the surgical service as indicated. 06/08 -resolved. Risk Factors Assessment Male: Yes : No Do You Have Access To A Gun?: No Health Problems: No Mental Health Diagnoses: Yes Substance Use Disorders: No Previous Attempt: Yes (The patient reportedly has multiple attempts at suicide by overdose. A review of the historical record does not provide adequate data to draw conclusions regarding the patient's previous attempts, and additional information will be gathered from the patient as he stabilizes.) Previous Psychiatric Hospitalization: Yes Protective Factors Assessment : No Responsible for Young Children: No Employed: Yes Stable Relationships: No Supportive Family: No Interval History Identifying Information LEXII TEE is a 28-year-old M who currently lives in a psychiatric residential program. He has a known a history of schizophrenia. He and was admitted on 06/03/19 13:54 on a 302 involuntary commitment for grave disability due to his florid psychotic features and disruption to his usual routine that led to medication non-compliance. Pt was brought to ED with 302 petition from his outpatient manager case. He is on a 303 involuntary commitment as of 06/07/2019. Chief Complaint "I know that because you are a psychiatrist you will understand why I need to practice my speech". Review of Systems Sleep Information Total Hours of Sleep: 6.25 Sleep Comments: pt on q-15 minute checks Meal Information Percent Meal Consumed - Breakfast: 100 Percent Meal Consumed - Lunch: 100 Percent Meal Consumed - Dinner: 100 Subjective Subjective Patient was seen & assessed and interval progress reviewed with treatment team. staff described an instance yesterday when patient abruptly left group and then heard speaking angrily to himself in his room shortly after. this morning after breakfast I directly observe the patient stop mid ambulation from the cafeteria tray cart appearing to respond to internal stimuli for several seconds before resuming his previous intended activity. I attempted to explore this with him today and he tells me that he was imagining having an interview and was struggling to speak and felt frustrated. Recently he has been describing his behaviors of speaking to unseen persons and gesturing to himself as purposeful behavior of "practicing" his speech ultimately hoping to be a better job candidate. He shares of historical social embarrassment associated with his speech impediment. he describes his mood today is "okay." Case management scheduled for a visit tomorrow. Physical Exam Psychiatric Orientation: alert and cooperative Apperance: appeared stated age Eye Contact: + fair eye contact tics associated w/ stuttering dysfluency less evident today Affect: + blunted affect ok Thought Process: + perseveration no overt delusional thought content but may be "explaining away" psychotic behaviors Suicidal Thoughts: denies suicidal thoughts Homicidal Thoughts: denies homicidal thoughts denies Insight: + fair insight Judgement: + fair judgement Vital Signs (Past 24 Hours) Last Vital Signs Temp 36.5 C 06/12/19 06:52 Pulse 109 H 06/12/19 06:52 Resp 18 06/12/19 06:52 BP 136/93 06/12/19 06:52 Results & Data Current Inpatient Medications Current Inpatient Medications: Current Inpatient Medications Acetaminophen (Tylenol) 650 mg PO Q4H PRN PRN Reason: Headache or Minor Fever Stop: 07/03/19 14:39 Last Admin: 06/05/19 14:40 Dose: 650 mg Documented by: Al Hydrox/Mg Hydrox/Simethicone (Maalox) 30 ml PO Q4H PRN PRN Reason: GI Upset Stop: 07/03/19 14:39 Last Admin: 06/04/19 18:47 Dose: 30 ml Documented by: Bismuth Subsalicylate (Kaopectate) 15 ml PO PRN PRN PRN Reason: Loose Stool Stop: 07/03/19 14:39 Clozapine (Clozapine) 300 mg PO HS LINO Stop: 07/10/19 21:59 Last Admin: 06/11/19 21:09 Dose: 300 mg Documented by: Haloperidol (Haldol) 10 mg PO Q6H PRN PRN Reason: Agitation Stop: 07/03/19 15:28 Last Admin: 06/06/19 08:47 Dose: 10 mg Documented by: Hydroxyzine HCl (Vistaril) 25 mg PO Q4H PRN PRN Reason: Anxiety Stop: 07/03/19 14:39 Hydroxyzine HCl (Vistaril) 50 mg PO HSZ PRN PRN Reason: Insomnia Stop: 07/03/19 14:39 Magnesium Hydroxide (Milk Of Magnesia) 30 ml PO DAILY PRN PRN Reason: Constipation Stop: 07/03/19 14:39 Sertraline HCl (Zoloft) 75 mg PO QAM LINO Stop: 07/10/19 08:59 Last Admin: 06/12/19 08:54 Dose: 75 mg Documented by: Sodium Chloride ([place] Nasal) 1 - 2 sprays NA PRN PRN PRN Reason: Nasal Dryness/Congestion Stop: 07/03/19 14:39 Mental Health & Subst Abuse Tx Psychiatrist Name of Psychiatrist: [facility] Paxton Aguilar Psychiatrist's Date of Appointment with Psychiatrist: 06/24/19 Time of Appointment with Psychiatrist: 10:45 a.m. Psychiatric Appointment Comment: [address] [place] [address] THOMAS Ramesh Automobile Body Repair Chief Name of Automobile Body Repair Chief: [facility] - Nedajacquelin Pena Phone Number for Automobile Body Repair Chief: [phone] Date of Appointment with Automobile Body Repair Chief: 06/13/19 Time of Appointment with Automobile Body Repair Chief: 1:30 p.m. Case Management Appointment Comment: Will meet you at [facility] Post Discharge Appointments Primary Care Physician Name Of Family Doctor: [facility] - Dr. Delgado Primary Care Time of Appointment with PCP: Please follow up as needed Provider Appointment Comment: [address] [facility] Contact Information Discharge Discharge Address: [address] [place] [address], [place] [address] CPT Code CPT Code 74267
[2019-06-12] MEDS: cloZAPine 100 MG TAB PO SCH (21:26)
[2019-06-13 06:39] VITALS: BP 128/84; TEMP 97.3
[2019-06-13] MEDS: SERTRALINE HCL 50 MG TABLET PO SCH (08:36)
[2019-06-13 09:27] VITALS: PULSE 65
--- NOTE | 2019-06-13 09:40 | Discharge Summary ---
Date of Service June 13, 2019 History of Present Illness This 28-year-old man with a history of multiple previous psychiatric hospitalizations and a known history of schizophrenia. He was admitted medically on 06/02/19 after presenting to the ED on a 302 [address] warrant for mental health evaluation. Pt admitted medically due to reports of abdominal pain and vomiting, in conjunction with inflammation of appendix on CT findings. Laboratory testing did not suggest acute appendicitis, but observation and a dditional testing was recommended. Psychiatrically, it was reported that the patient's sample case porter had verbalized concerns regarding the patient's behavior, believing him to be off his psychotropic medications. Psychiatric consultation is requested to evaluate the patient for psychosis in the setting of known schizophrenia diagnosis. Information is gathered from hospital documentation and 302 petitioning statement predominantly, as patient's history is not considered to be reliable. The patient remains afebrile, and after a day of observation he reports that the abdominal pain has stopped completely. However, the patient is exhibiting a number of active and disabling psychiatric symptoms. These include grossly disorganized thinking, inappropriate behavior such as disrobing in public and displaying a full erection in a public setting, other inappropriate behaviors such as spontaneously grabbing the buttocks of 1 of the nurses, and insistence that he has been miraculously cured of all illnesses and has no need for treatment of any kind, and quite obvious auditory hallucinations. More specifically, the patient is observed gesturing and speaking to unseen persons. He also tells us that he is not "safe," and that persons unknown or unseen are plotting to harm him, although he becomes very secretive and refuses to elaborate. There is evidence that the patient has been neglecting self-care. Reportedly, the patient had been transitioned from a more intensive and more restrictive level of care to a less frequently monitored and less intensive level of care in the community about 2 weeks prior to the admission, and it is strongly suspected that the patient stopped taking his outpatient medications which included clozapine 200 mg at bedtime and sertraline 75 mg daily. Clozapine 25 mg daily was restarted last night on the medical floor. He has no known history of difficulty tolerating clozapine. His ANC value at admission 5600/mcL. He was cleared medically and transferred to the inpatient psychiatric service at [facility], involuntarily. On the evening prior to his transfer to psychiatry he was offered clozapine 25 mg at bedtime and seems to have tolerated this well. A decision was made not to continue sertraline given the degree of the patient's disorganized thinking and psychosis. Physical Exam Psychiatric Orientation: alert, oriented to person, oriented to place, oriented to time and cooperative Apperance: appropriately dressed, appropriately groomed and appeared stated age Eye Contact: + fair eye contact Motor Behavior: steady gait and station and no abnormal motor movements Speech: normal rate/rhythm/volume of speech Occasional stutter Affect: + blunted affect "Good, very happy." Thought Process: goal directed thought process and linear/logical thought process Thought Content: reality based without delusions Homicidal Thoughts: denies homicidal thoughts Hallucinations: no auditory hallucinations and no visual hallucinations Cognition: recent memory grossly intact, attention grossly intact and language grossly intact Estimated Intelligence: consistent with education level Insight: + fair insight Judgement: + fair judgement Vital Signs (Past 24 Hours) Last Vital Signs Temp 36.3 C L 06/13/19 09:25 Pulse 65 06/13/19 09:25 Resp 18 06/13/19 09:25 BP 128/84 06/13/19 09:25 Principal Diagnosis Schizophrenia Anxiety not otherwise specified Psychiatric Data The patient was hospitalized for 10 days. Clozapine was re-titrated and his overall daily dose increased to a total of 300 mg daily to target psychotic symptoms. His home dose of sertraline was also resumed for anxiety, as he reported that it had been helpful for him. He was initially maintained in a private room and excused from groups due to the severity of his psychosis and inappropriate sexual behavior. He touched several female staff inappropriately, was preoccupied with his genitals, and repeatedly disrobed. A 303 commitment hearing was held and granted on 06/07/2019. As his psychosis improved and he was in better behavioral control, he began to attend and participate in groups and therapy on the unit. He agreed to a referral for mobile med management services, as suggested by his blended sample case porter. He gave inconsistent reports about medication adherence prior to hospitalization; initially he reported noncompliance with medications, but later he stated he was taking medication, but not sleeping adequately due to working too many hours. He was noted to be eating and sleeping well in the hospital, thinking became more organized and reality based, and he was able to be appropriate in his interactions with others and remain in behavioral control. He continued to have periods where he was observed gesturing or talking to himself, but denied that he was hallucinating and offered alternative explanations. He was able to discuss his schedule at home and the stressors that led to hospitalization, and stated a plan to limit work hours to 40/week. His outpatient sample case porter visited and was involved throughout his stay, and he consistently denied suicidal thoughts and depressed mood. As his psychosis improved, he reported that he had been touching female staff because he had lost his vision temporarily and was using his hands to feel his way around. His sexually inappropriate behaviors resolved, and he was noted to be in good behavioral control and able to tolerate a roommate. Day of Discharge Assessment Staff report the patient has been taking medications as prescribed, attending and participating in groups and therapy, and performing ADLs independently. On my assessment, he reports mood is "very happy," and feels that he is back to baseline and ready for discharge. He reports good sleep and appetite, and denies medication side effects. He denies thoughts of harming himself or others, hallucinations, and paranoia. He denies any safety concerns with discharge. He is planning to return to his apartment, resume work later this week, and limit himself to working 40 hours a week. 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 Transition of Care Transition Of Care Record: was reviewed with the patient Advance Directives Advance Directives Information Provided: Yes Advance Directives: No Mental Health Advance Directive: No Advance Directives on File: No Living Will: No Power of Design Assistant: No Advance Directives Reason:: Declines as Mental Health Visit. Risk Factors Assessment Risk factors were mitigated by admission to the inpatient unit, adjusting medications to target psychotic symptoms and anxiety, involving him in groups and therapy, psychoeducation about his diagnosis and the recommended treatment, working on healthy coping skills and a discharge safety plan, involving his o utpatient sample case porter, referring him for multiple medication management, and recommending restricted work hours. He has demonstrated improvement in psychotic symptoms, has consistently denied thoughts of harming himself or others, is tending to ADLs independently, taking medications as prescribed, has been able to interact with others appropriately and participate in groups, and to limit his work hours. He is requesting discharge, and is he is no longer at acute risk of harm to himself or others, can be managed as an outpatient at this time. Male: Yes : No Do You Have Access To A Gun?: No Health Problems: No Mental Health Diagnoses: Yes Substance Use Disorders: No Previous Attempt: Yes (The patient reportedly has multiple attempts at suicide by overdose. A review of the historical record does not provide adequate data to draw conclusions regarding the patient's previous attempts, and additional information will be gathered from the patient as he stabilizes.) Previous Psychiatric Hospitalization: Yes Protective Factors Assessment : No Responsible for Young Children: No Employed: Yes Stable Relationships: No Supportive Family: No Tobacco Cessation at Discharge Tobacco Cessation Medication Prescribed at Discharge: Not Applicable/Non-Smoker Total Time Total Time Spent: Greater Than 30 Minutes Total Time Includes: Examination of the patient, Discharge Planning and Medication Reconciliation Discharge Data Lab Results 06/10/19 07:06 WBC 7.16 RBC 4.29 L Hgb 13.1 L Hct 39.0 L MCV 90.9 MCH 30.5 MCHC 33.6 RDW Std Deviation 48.5 H RDW Coeff of Tawanna 14.6 H Plt Count 325 MPV 10.2 Immature Gran % (Auto) 0.1 Neut % (Auto) 46.9 Lymph % (Auto) 40.4 Hill % (Auto) 7.4 Eos % (Auto) 4.6 Baso % (Auto) 0.6 Immature Gran # (Auto) 0.01 Neut # (Auto) 3.36 Lymph # (Auto) 2.89 Hill # (Auto) 0.53 Eos # (Auto) 0.33 Baso # (Auto) 0.04 Hospital Course (1) Schizophrenia: 06/03 -Thinking and behavior are highly disorganized. His associations are loose, he perseverates or becomes mute, and his disorganized behaviors include presenting in public with a fully erect penis and disrobing in public settings. -The patient harbors series of believes that are not based in reality. One belief is that he is in some form of immediate danger and needs to leave the hospital immediately in order to be safe. 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 The patient has not been attending college for several years now due to his psychiatric disability. -The patient appears to be actively hallucinating. He speaks as if to persons unseen in an empty room, gestures towards empty chairs or empty rooms as if attempting to communicate with an unseen person, and makes elaborate hand gestures as if somehow "signaling" to persons or objects unseen -We will provide the patient with external structure in order to keep him safe. He has been placed on a locked unit, and a medically necessary private room and full view of the nursing station at all times. He is also being checked every 15 minutes by nursing staff. -The plan is to gradually titrate clozapine back to his usual dose of 200 mg at bedtime, and monitor the patient closely. We will encourage the patient to attend group, and activity therapies once his behavior becomes more appropriate. In the meantime, we will provide him with individual treatment that will include reality testing. -I am in agreement with the plan not to restart sertraline at this time. We will reconsider this as the patient stabilizes. 06/04 - continue plan as above, with clozaril titration to outpt dose over next couple days as ordered. holding any SSRI at this time given his current 06/06 -psychosis is improving; clozapine increased to 200 mg at bedtime today. -Meeting with [facility] Neda Pena today. -File for 303 involuntary commitment. -Explore ways to increase outpatient supports and structure. -Patient does not yet been able to tolerate groups or a roommate, as recently as yesterday was disrobing and exposing his genitals to female staff. 06/07 - psychosis continues to improve, continue clozapine 200mg HS. - 303 commitment granted. - Encourage group attendance and consider placing with roommate if able to tolerate. - Refer for [employer] mobile med management services. 06/08 -continue clozapine 200 mg at bedtime. -Continue to work on discharge plans and healthy coping skills. -Patient agrees to postpone returning to work until the beginning of next week, and plans to call his boss today to discuss this. 06/09 - Continue clozapine 200mg qHS - CBC w/ diff ordered for tomorrow morning - last labs obtained 06/03/19 with no significant abnormality - Pt agreeable to referral for medication management through [facility] - Discussing reality-based steps necessary for discharge 06/10 - Titrate clozapine to 300mg; pt reports previously tolerating this dosage. Concern for possibility destabilization after discharge if patient remains on hose dosage - Pt also admits that the 300mg dosage has contributed to sedation, which allows us to limit polypharmacy by not scheduling a sleep aid - CBC w/diff reviewed; historical normocytic anemia - no significant change from previous labs - Pt met with customer support representative from [facility] [employer] to discuss mobile medication management referral - Seems to be engaging in reality-based conversations; motivated participation in discharge planning 06/11 -Appears to have tolerated increased clozapine dose adequately so far. -Requires weekly CBC and differential next to 06/17/2019 -Behaviors remain disorganized and bizarre on the unit but with behavioral recompensation evident since time of admission -We will see how he does in the next 24 hours as we work towards discharge. He is at high risk for a quick decompensation if discharged prematurely. 06/12 -Patient certainly appears to be more linear and logical however there does appear to be residual behaviors possibly associated with internal stimuli. As his sample case porter is scheduled for a visit tomorrow, it seems that would be a good opportunity to assess current clinical status as compared to baseline in considering discharge. (2) Anxiety: 06/08 -patient reports sertraline 75 mg was being prescribed for the past couple of years for anxiety, and that it was helpful. It was held on admission, and he is willing to resume it. Start 50 mg daily today, and increase to 75 mg daily tomorrow. 06/09 - It appears sertraline had not been ordered yesterday, pt received 50mg this morning - Dose to be increased back to 75mg tomorrow morning 06/10 - Continue home dose of sertraline 75mg (3) Abdominal pain, RLQ: 06/03 -The patient had originally been admitted to medicine on 06/02/2019 from the emergency room because of right lower quadrant pain. An abdominal CT had indicated some inflammation of the patient's appendix, but other studies were not consistent with acute appendicitis and he has been cleared medically. Nevertheless, we will monitor him closely on the unit for an exacerbation of his right lower quadrant pain and will reinvolve the surgical service as indicated. 06/08 -resolved. Mental Health & Subst Abuse Tx Psychiatrist Name of Psychiatrist: [facility] - Dr. Aguilar Psychiatrist's Date of Appointment with Psychiatrist: 06/24/19 Time of Appointment with Psychiatrist: 10:45 a.m. Psychiatric Appointment Comment: [address] [place] [address], THOMAS Ramesh Paint Prep Technician Name of Paint Prep Technician: [facility] Neda Pena Phone Number for Paint Prep Technician: [phone] Date of Appointment with Paint Prep Technician: 06/13/19 Time of Appointment with Paint Prep Technician: 1:30 p.m. Case Management Appointment Comment: Will meet you at [facility] Discharge Appointments Primary Care Physician Name Of Family Doctor: [facility] - Dr. Delgado Primary Care Time of Appointment with PCP: Please follow up as needed Provider Appointment Comment: [address] [facility] Smoking Cessation Counseling Tobacco Cessation Medication Prescribed at Discharge: Not Applicable/Non-Smoker Contact Information Discharge Discharge [address]: [address] [place] [id number] Discharge Plan Discharge Items Patient Disposition: Home - Self-Care Reason For Visit: SCHIZOPHRENIA Discharge Diagnosis: schizophrenia Activity: Per Instructions section Non-emergency contact: Psychiatrist, Therapist and 5Th Grade Teacher Call non-emergency contact if: you have any medication questions and your symptoms worsen Follow-up/Referrals: Duane Delgado MD [Primary Care Provider] - Diet: Regular Addtl Attending Provider Instructions: SPECIAL CARE INSTRUCTIONS: 1. Follow through with your scheduled aftercare appointments. If unable to keep an appointment, please call to reschedule. 2. Take your medication only as prescribed. Medication should not be changed or stopped without the approval of your doctor. In the event of worsening symptoms or concerns about side effects, contact your doctor immediately. 3. Utilize new healthy coping skills, anger management skills, and stress management skills learned during your hospitalization. Journal feelings and process them with a support person. Identify stressors or situations that may result in relapse, deterioration or inappropriate behaviors and develop a plan to deal with those issues. 4. If your coping skills are ineffective and you are in crisis, contact your outpatient providers for direction. If unable to reach your providers, please call the CAN HELP LINE AT or go to the closest Emergency Room. 5. Avoid alcohol and un-prescribed drugs. 6. You have been provided with the Mental Health Advance Directives Pamphlet for your review. AFTERCARE APPOINTMENTS: * Please call your insurance company prior to your scheduled appointment to confirm your aftercare providers are covered. Take your insurance information to your appointments. WHO TO CALL AND WHEN: Medical Emergencies: For questions or emergencies related to your hospital stay, please contact the Inpatient Behavioral Health Unit at [phone]. A mental health clinician is on-call 06/04 for the Behavioral Health Unit for emergencies At any time you feel your situation is an emergency, you may also call 911 immediately. Your Doctors Instructions noted above were prepared by provider Debbi Escobedo MD. Pending Studies at Discharge: No Stand-Alone Forms: My [facility] Medications and DC Order Prescriptions: New clozapine 100 mg Tablet 300 mg PO HS Qty: 90 RF: 0 Continued sertraline 50 mg tablet 75 mg PO DAILY RF: 0 Discontinued clozapine 100 mg tablet 200 mg PO HS RF: 0 Discharge Orders: Discharge Order (Routine); Ordered 06/13/19 Ordered By: Debbi Escobedo Admission Data Admit Date/Time: 06/03/19 13:54 Attending Provider: Duane Mane I Admit Provider: Waylon Shen Primary Care Provider: Duane Delgado Other Interventions: Discharge Summary Assessment (RN) Last Done: 06/13/19 09:25 PSY Interdisciplinary Discharge Planning Last Done: 06/13/19 11:35
== END 2019-06-13 13:49 | disposition home or self-care (01) | DRG 885 ==
LOC: 3S 13:54
DX: F41.9 Anxiety disorder, unspecified; Z91.5 Personal history of self-harm; R10.31 Right lower quadrant pain; F20.9 Schizophrenia, unspecified; Z79.899 Other long term (current) drug therapy

== ENCOUNTER 2019-06-20 14:57 | Inpatient (IN) ==
[2019-06-20 15:03] VITALS: O2SAT 97
[2019-06-20] MEDS ORDERED: LORazepam 1 MG TAB SL STA (15:24)
[2019-06-20] MEDS ORDERED: haloperidoL 5 MG TAB PO STA (15:24)
[2019-06-20 15:42] LABS: Appearance Urine Clear (Clear); Bacteria Urine Automated Negative (Negative); Bilirubin Urine Negative (Negative); Blood Urine Negative (Negative); Color Urine Yellow; Epithelial Cell Urine Auto 20-30 /lpf (0-5); Glucose Urine UA Negative (Negative); Ketones Urine Trace (Negative); Leukocyte Esterase Urine Negative (Negative); Nitrite Urine Negative (Negative); Protein Urine Trace (Negative); RBC Urine Automated 0-4 /hpf (0-4); Specific Gravity Urine 1.027 (1.000-1.030); Urobilinogen Urine Negative (Negative); pH Urine 6.5 (4.5-7.5)
[2019-06-20 16:05] LABS: Amphetamines+Metham, Urine Neg (Neg); Barbiturates, Urine Neg (Neg); Benzodiazepine, Urine Neg (Neg); Cocaine, Urine Neg (Neg); MDMA (Ecstacy), Urine Neg (Neg); Methadone, Urine Neg (Neg); Opiate, Urine Neg (Neg); Phencyclidine, Urine Neg (Neg)
[2019-06-20 16:13] LABS: Basophils # (auto) 0.03 K/uL (0-0.2); Basophils % (auto) 0.3 %; Eosinophils # (auto) 0.16 K/uL (0-0.5); Eosinophils % (auto) 1.5 %; Hematocrit (blood only) 38.5 % (42-52); Hemoglobin 13.1 g/dL (14.0-18.0); Immature Granulocytes # (auto) 0.01 K/uL (0.00-0.02); Immature Granulocytes % (auto) 0.1 %; Lymphocytes # (auto) 3.55 K/uL (1.2-3.4); Lymphocytes % (auto) 33.1 %; Mean Corpuscular Hemoglobin 30.2 pg (25-34); Mean Corpuscular Volume 88.7 fL (80-100); Mean Platelet Volume 10.3 fL (7.4-10.4); Monocytes # (auto) 0.72 K/uL (0.11-0.59); Monocytes % (auto) 6.7 %; Neutrophils # (auto) 6.27 K/uL (1.4-6.5); Neutrophils % (auto) 58.3 %; Platelet Count 355 K/uL (130-400); RDW Coefficient of Variation 15.1 % (11.5-14.5); RDW Standard Deviation 49.2 fL (36.4-46.3); Red Blood Count 4.34 M/uL (4.7-6.1); White Blood Count 10.74 K/uL (4.8-10.8)
[2019-06-20 16:21] LABS: Albumin Level 3.5 gm/dl (3.4-5.0); BUN Creatinine Ratio 10.8 (10-20); Calcium 8.8 mg/dl (8.5-10.1); Creatinine Clr Calc Pharmacy 115.7 ml/min; Est GFR (African American) 117.6; Est GFR (Non-African American) 101.5; Potassium 3.3 mmol/L (3.5-5.1)
[2019-06-20 16:24] LABS: Albumin Globulin Ratio 0.8 (0.9-2); Bilirubin,Total 0.5 mg/dl (0.2-1); Globulin 4.2 gm/dl (2.5-4.0); Total Protein 7.7 gm/dl (6.4-8.2)
[2019-06-20 16:34] LABS: Acetaminophen < 2 ug/ml (10-30); Salicylate < 1.7 mg/dl (2.8-20)
--- NOTE | 2019-06-20 17:25 | Emergency Department Note ---
Entered by Kellee Cisneros acting as a scribe for Vance Jimenez MD History of Present Illness General Chief complaint: Mental Health Evaluation Stated complaint: MENTAL HEALTH EVAL Time Seen by Provider: 06/20/19 15:05 Source: patient History of Present Illness Provider complaint: Mental Health Evaluation Onset (ago): hour(s) 3 Radiation: non-radiation Relieved By: + none Exacerbated By: + other (Stress) Associated symptoms: + other (Racing heart ) The patient is a 29 year old male who presents to the Emergency Room with complaints of worsening manic behavior that began about 3 hours ago. According to medical records, the patient was discharged this morning from our ED after being seen by the psychiatry case fitter. The heel caser decided the patient did not need to stay for inpatient care and the patient requested to leave. On the patient was discharged from [address] [place] [address] with a diagnosis of Schizophrenia. Additionally, on June 18 the patient was recorded telling his roommates he wanted to destroy, rape, and kill them. According to the patient he did not make these threats, he claimed he said he was going to because he lost his wallet and phone and was caught running around naked outside by the police. The patient reports feeling so panicked in this moment he thought he was going to of a heart attack. The patient states he has a history of alcoholism and has been skipping work and not sleeping. Of note, the patient presents with a 302 warrant. His case fitter was concerned that the patient was aggressive and potentially homicidal. He apparently did threaten his case fitter. Home Medications Home Medications Medication Instructions Recorded Confirmed Type clozapine 300 mg PO HS #90 tab 06/13/19 06/20/19 Rx sertraline 75 mg PO DAILY 06/13/19 06/20/19 History Allergies Allergy/AdvReac Type Severity Reaction Status Date / Time No Known Drug Allergies Allergy Unknown Verified 06/20/19 16:45 Past Med/Surg History Medical History Somnolence (Acute) Mood disorder (Acute) Sleep deprivation (Acute) Anxiety Altered mental status (Acute) Normocytic anemia Alcohol use disorder (Chronic) In remission. Eosinophilia Schizophrenia (Chronic) Diagnosed in 2016. Followed by [facility] and Dr. Ennis Managed with clozapine + sertraline + prazosin Suicide attempt Metabolic encephalopathy Schizophrenia Social History Preferred Language: Faroese Communication Ability: Effective Visual Impairment: No Limitations Hearing Ability: Normal [employer] Required: No Beliefs That Will Affect Care: None marital status: Single Current Living Situation: Alone Current Living Situation Comment: Apartment , see ED admission report current occupational status: employed Feels Safe at Home: Yes Smoking Status: Never smoker Cigarettes Per Day: Patient unresponsive at this time ; Hx Alcohol Use: Yes Hx Substance Use: No (unknown) Seatbelt Use: always Review of Systems See HPI for pertinent positives & negatives. and A total of 10 systems reviewed and were otherwise negative Physical Exam Vital Signs Vital Signs - 24 hr 06/20/19 15:01 Temperature 36.7 C Temperature Source Oral Sepsis Recent Fever Within 48 Hours No Sepsis New/Unexplained Change in Mental Status No Sepsis Action Taken by Nursing No Action Required Pulse Rate 108 H Pulse Rhythm Regular Pulse Strength Normal Respiratory Rate 20 Respiratory Depth Normal Blood Pressure 127/87 Blood Pressure Mean 100 Blood Pressure Position Sitting Pulse Oximetry 97 Oxygen Delivery Method Room Air GENERAL: Patient is in no acute distress. HEENT: No acute trauma, normocephalic atraumatic, mucous membranes moist, no nasal congestion, no scleral icterus. NECK: No stridor, no adenopathy, no meningismus, trachea is midline. LUNGS: Clear to auscultation bilaterally, no wheeze, no rhonchi, breath sounds equal. HEART: Mildly tachycardic. Regular rhythm. No murmurs. ABDOMEN: Soft, nontender, bowel sounds positive, no hernias, no peritonitis. EXTREMITIES: No cyanosis or edema, full range of motion of all the joints with out pain or difficulty, no signs for acute trauma. NEUROLOGIC: Oriented x 3, no acute motor or sensory deficits, no focal weakness. SKIN: No rash, no jaundice, no diaphoresis. PSYCH: Rapid speech. Somewhat anxious. Tangential thinking. Seems almost manic. Course 1520: Past medical records reviewed. The patient was evaluated in room A07. A complete history and physical exam was performed. 1857: The patient was admitted to [address] [place] [address]. Administered Medications Clozapine (Clozaril) 25 mg PO HS [facility] Stop: 07/20/19 21:59 Last Admin: 06/20/19 21:26 Dose: 25 mg Documented by: [id number] Discontinued Medications Haloperidol (Haldol) 5 mg PO NOW STA Stop: 06/20/19 15:25 Last Admin: 06/20/19 15:54 Dose: 5 mg Documented by: [id number] Lorazepam (Ativan) 2 mg SL NOW STA Stop: 06/20/19 15:25 Last Admin: 06/20/19 15:32 Dose: 2 mg Documented by: [id number] Medical Decision Making Differential Diagnosis Differential Diagnosis Includes: Medication noncompliance, SI, HI, Anemia, electrolyte imbalance, psychosis, and sharmila. Medical Records Attestation: I reviewed the patient's medical records. Home Medications Current Medication List: was personally reviewed by me Laboratory Data Attestation: I reviewed the patient's lab results. Result diagrams: 06/20/19 15:36 06/20/19 15:36 Lab Results 06/20/19 06/20/19 06/20/19 Range/Units 15:16 15:16 15:36 WBC 10.74 (4.8-10.8) K/uL RBC 4.34 L (4.7-6.1) M/uL Hgb 13.1 L (14.0-18.0) g/dL Hct 38.5 L (42-52) % MCV 88.7 (80-100) fL MCH 30.2 (25-34) pg MCHC 34.0 (32-36) g/dL RDW Std Deviation 49.2 H (36.4-46.3) fL RDW Coeff of Tawanna 15.1 H (11.5-14.5) % Plt Count 355 (130-400) K/uL MPV 10.3 (7.4-10.4) fL Immature Gran % (Auto) 0.1 % Neut % (Auto) 58.3 % Lymph % (Auto) 33.1 % [place] % (Auto) 6.7 % Eos % (Auto) 1.5 % Baso % (Auto) 0.3 % Immature Gran # (Auto) 0.01 (0.00-0.02) K/uL Neut # (Auto) 6.27 (1.4-6.5) K/uL Lymph # (Auto) 3.55 H (1.2-3.4) K/uL [place] # (Auto) 0.72 H (0.11-0.59) K/uL Eos # (Auto) 0.16 (0-0.5) K/uL Baso # (Auto) 0.03 (0-0.2) K/uL Sodium (136-145) mmol/L Potassium (3.5-5.1) mmol/L Chloride (98-107) mmol/L Carbon Dioxide (21-32) mmol/L Anion Gap (3-11) BUN (7-18) mg/dl Creatinine (0.6-1.4) mg/dl Est Cr Clr Drug Dosing ml/min Est GFR ( Amer) Est GFR (Non-Af Amer) BUN/Creatinine Ratio (10-20) Glucose (70-99) mg/dl Calcium (8.5-10.1) mg/dl Total Bilirubin (0.2-1) mg/dl AST (15-37) U/L ALT (12-78) U/L Alkaline Phosphatase (45-117) U/L Total Protein (6.4-8.2) gm/dl Albumin (3.4-5.0) gm/dl Globulin (2.5-4.0) gm/dl Albumin/Globulin Ratio (0.9-2) Urine Color Yellow Urine Appearance Clear (Clear) Urine pH 6.5 (4.5-7.5) Ur Specific [place] 1.027 (1.000-1.030) Urine Protein Trace H (Negative) Urine Glucose (UA) Negative (Negative) Urine Ketones Trace H (Negative) Urine Blood Negative (Negative) Urine Nitrite Negative (Negative) Urine Bilirubin Negative (Negative) Urine Urobilinogen Negative (Negative) Ur Leukocyte Esterase Negative (Negative) Urine WBC (Auto) 1-5 (0-5) /hpf Urine RBC (Auto) 0-4 (0-4) /hpf U Hyaline Cast (Auto) 5-10 H (0-5) /lpf U Epithel Cells (Auto) 20-30 H (0-5) /lpf Urine Bacteria (Auto) Negative (Negative) Salicylates (2.8-20) mg/dl Urine Opiates Screen Neg (Neg) Ur Methadone, Qual Neg (Neg) Acetaminophen (10-30) ug/ml Urine Barbiturates Neg (Neg) Ur Phencyclidine (PCP) Neg (Neg) U Amphetamin/Meth Scrn Neg (Neg) MDMA (Ecstasy) Screen Neg (Neg) U Benzodiazepines Scrn Neg (Neg) Ur Cocaine Metabolite Neg (Neg) U Marijuana (THC) Screen Neg (Neg) Ethyl Alcohol mg/dL (0-3) mg/dl 06/20/19 06/20/19 06/20/19 Range/Units 15:36 15:36 15:36 WBC (4.8-10.8) K/uL RBC (4.7-6.1) M/uL Hgb (14.0-18.0) g/dL Hct (42-52) % MCV (80-100) fL MCH (25-34) pg MCHC (32-36) g/dL RDW Std Deviation (36.4-46.3) fL RDW Coeff of [place]awanna (11.5-14.5) % Plt Count (130-400) K/uL MPV (7.4-10.4) fL Immature Gran % (Auto) % Neut % (Auto) % Lymph % (Auto) % [place] % (Auto) % Eos % (Auto) % Baso % (Auto) % Immature Gran # (Auto) (0.00-0.02) K/uL Neut # (Auto) (1.4-6.5) K/uL Lymph # (Auto) (1.2-3.4) K/uL [place] # (Auto) (0.11-0.59) K/uL Eos # (Auto) (0-0.5) K/uL Baso # (Auto) (0-0.2) K/uL Sodium 140 (136-145) mmol/L Potassium 3.3 L (3.5-5.1) mmol/L Chloride 106 (98-107) mmol/L Carbon Dioxide 24 (21-32) mmol/L Anion Gap 10.0 (3-11) BUN 11 (7-18) mg/dl Creatinine 1.01 (0.6-1.4) mg/dl Est Cr Clr Drug Dosing 115.7 ml/min Est GFR ( Amer) 117.6 Est GFR (Non-Af Amer) 101.5 BUN/Creatinine Ratio 10.8 (10-20) Glucose 121 H (70-99) mg/dl Calcium 8.8 (8.5-10.1) mg/dl Total Bilirubin 0.5 (0.2-1) mg/dl AST 26 (15-37) U/L ALT 41 (12-78) U/L Alkaline Phosphatase 85 (45-117) U/L Total Protein 7.7 (6.4-8.2) gm/dl Albumin 3.5 (3.4-5.0) gm/dl Globulin 4.2 H (2.5-4.0) gm/dl Albumin/Globulin Ratio 0.8 L (0.9-2) Urine Color Urine Appearance (Clear) Urine pH (4.5-7.5) Ur Specific [place] (1.000-1.030) Urine Protein (Negative) Urine Glucose (UA) (Negative) Urine Ketones (Negative) Urine Blood (Negative) Urine Nitrite (Negative) Urine Bilirubin (Negative) Urine Urobilinogen (Negative) Ur Leukocyte Esterase (Negative) Urine WBC (Auto) (0-5) /hpf Urine RBC (Auto) (0-4) /hpf U Hyaline Cast (Auto) (0-5) /lpf U Epithel Cells (Auto) (0-5) /lpf Urine Bacteria (Auto) (Negative) Salicylates < 1.7 L (2.8-20) mg/dl Urine Opiates Screen (Neg) Ur Methadone, Qual (Neg) Acetaminophen < 2 L (10-30) ug/ml Urine Barbiturates (Neg) Ur Phencyclidine (PCP) (Neg) U Amphetamin/Meth Scrn (Neg) MDMA (Ecstasy) Screen (Neg) U Benzodiazepines Scrn (Neg) Ur Cocaine Metabolite (Neg) U Marijuana (THC) Screen (Neg) Ethyl Alcohol mg/dL < 3.0 (0-3) mg/dl Blood Pressure Blood Pressure Findings: Elevated blood pressure Blood Pressure Disposition: further management by hospitalist MDM Narrative There is no leukocytosis or worrisome anemia. No significant electrolyte abnormality or kidney failure. No concerning liver enzyme elevation. Urinalysis did not show infection. Urine tox was negative. Aspirin, Tylenol and alcohol levels were undetectable. Thyroid testing from yesterday returned negative. The patient presents with some homicidal ideation and increased anxiety/sharmila. There was concern by his case fitter that he was a danger to himself and others. There was concern that he was not taking his medications. A 302 warrant did arrive with the patient. The patient was felt medically clear. He was seen by psychiatry case management. The patient will be hospitalized involuntarily. He is going to be brought into this [facility], [address]. During the patient's stay, he has been cooperative. Security was stationed at his bedside. He did receive oral Haldol and oral Ativan while in the ED, he did well with this medication. Impression & Plan Psychosis, Sharmila, Homicidal ideation Discharge Plan Visit Data *Final* Discharge Date/Time: 06/20/19 19:10 Chief Complaint: Mental Health Evaluation Stated Complaint: MENTAL HEALTH EVAL ED Provider: Vance Jimenez Discharge Problem: Psychosis, Sharmila, Homicidal ideation Patient Disposition: Admitted As Inpatient Discharge Instructions Interventions: ED Discharge Assessment Last Done: 06/20/19 19:10 Discharge Problem: Psychosis Qualifiers: Psychosis type: unspecified psychosis type Qualified Code(s): F29 - Unspecified psychosis not due to a substance or known physiological condition The scribe's documentation has been prepared under my direction and personally reviewed by me in its entirety. I confirm that the note above accurately reflects all work, treatment, procedures, and medical decision making performed by me.
[2019-06-20] MEDS ORDERED: MAGNESIUM HYDROXIDE SUSP 30 ML UDC PO PRN (17:47)
[2019-06-20] MEDS ORDERED: ALUMINUM/MAGNESIUM SUSP 30 ML UDC PO PRN (17:47)
[2019-06-20] MEDS ORDERED: ACETAMINOPHEN 325 MG TAB PO PRN (17:47)
[2019-06-20] MEDS ORDERED: BISMUTH SUBSALICYLATE PER ML OMNICELL CHARGE PO PRN (17:47)
[2019-06-20] MEDS ORDERED: SODIUM CHLORIDE 0.65% NA SOLN 45 ML (OCEAN) PRN (17:47)
[2019-06-20] MEDS ORDERED: cloZAPine 25 MG TAB PO SCH ×2 (21:00→22:00)
[2019-06-21] MEDS: SERTRALINE HCL 50 MG TABLET PO SCH (07:56)
--- NOTE | 2019-06-21 08:05 | History & Physical ---
Date of Service June 21, 2019 Impression / Recommendations Tatianna Orosco is a 29-year-old Luxembourger male who lives with roommates in [place], has a history of schizophrenia, depression, alcohol use disorder, and treatment nonadherence, and has had multiple hospitalizations in the past month since he was discharged from the [facility] and moved to independent living in an apartment with college student roommates. His hospitalizations this past month have been triggered by erratic, disorganized behavior in the community, including going out in public in the nude, threatening other people, and severely disorganized thinking and speech. Although he reconstituted during his recent hospitalization on Klonopin, there are concerns that he was nonadherent with that at home. We will re-titrated, while also considering a long-acting injectable antipsychotic, and exploring options for increased outpatient support, such as a return to the [facility] half-way. He is admitted involuntarily after threatening his roommates and correctional case records supervisor, knocking on neighbors doors while naked, and repeated statements that he believes he is going to deny any moment of a heart attack. His sodium has been low in the past 2 days when he presented to the ER, indicating poor p.o. intake. Urinalysis also shows signs of dehydration and malnutrition. He is sexually inappropriate and disinhibited in his behavior here on the unit, touching female staff, and lacks any insight into concerns about his behavior or current symptoms, as well as the need for treatment. He is at acute risk of harm to both himself and others and unable to provide for his own basic needs without the care and assistance of others at this time. He will have a 303 hearing tomorrow. (1) Schizophrenia: 06/21 -re-titrate clozapine to home dose of 300 mg at bedtime. Consider adding Haldol Decanoate for augmentation and concerns for due to nonadherence with oral medications. -Haloperidol as needed has been beneficial, so we will continue, while scheduling 5 mg twice daily. -Lorazepam 2 mg p.o./IM every 4 hours as needed for psychosis/agitation. -Benztropine as needed for EPS. -Coordinate care with blended correctional case records supervisor, and outpatient clinicians at [facility]. -Patient is giving inconsistent reports, but on presentation reported he had not been sleeping, which could explain some of his manic symptoms on presentation, as well as exacerbation of psychotic illness. Continue to assess and treat as necessary. Present on Admission?: Yes (2) Homicidal ideation: 06/21 -the petition from the patient's [facility] states he threatened to harm his roommates. Would recommend they be contacted to clarify the statements made in the housing situation, including whether the patient is even able to return to the apartment. Present on Admission?: Yes (3) Depression: 06/21 -continue home dose of sertraline 75 mg daily. Continue to assess and monitor mood his psychosis improves. Present on Admission?: Yes (4) Anxiety: 06/21 -patient reports episodic anxiety in the context of believing he lost his keys and wallet. As needed medications as above, continue sertraline as above. Once he is less psychotic, encourage group attendance and participation, work on healthy coping skills and behavioral techniques for managing anxiety. Present on Admission?: Yes (5) Alcohol use disorder: 06/21 -patient reports he drank to intoxication on his birthday several days prior to hospitalization. This likely contributed to decompensation. Once he is less psychotic, will engage in further discussion of the risks of substance abuse and recommendations for abstinence. 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 Chief Complaint "I lost my wallet and my phone". History of Present Illness The patient is well-known to us from multiple previous hospitalizations, and was discharged from the behavioral health unit 06/13/2019 after a 10-day hospitalization for psychosis. He presented with hallucinations, delusions, disorganization, and sexual preoccupation with to disinhibited and inappropriate behavior. There was concern that he had been noncompliant with clozapine at home, so it was re-titrated and he was discharged on 300 mg at bedtime and sertraline 75 mg daily. 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 When they questioned him about his recent psychiatric hospitalization, he said that he had been seen in the ER after a fall at work. He then presented to the ER 06/19/2019, stating that he had panicked at his apartment because he could not find his cell phone or wallet, and believes they had been stolen. He stripped off his clothes in an effort to find those items, then thought he might of dropped them outside, so went outside to look for them and knocked on a neighbor's door while naked. He asked them to call the police because he did not have his phone, and when police arrived they found him drowsy, which he stated was because he had just taken his bedtime dose of Clozaril. The police were concerned about his behavior and brought him to the ER for assessment. He was allowed to sleep overnight and discharged home the following day. He. Presented to the ER again later that same day, 06/20/2019, with increasingly erratic behavior. His roommates had recorded him stating that he wanted to destroy, rape, and kill them. The patient thought he was going to of a heart attack because he lost his wallet and cell phone and was caught running around naked outside. He said he had not been sleeping or going to work, and his correctional case records supervisor reported he had been noncompliant with medications and refused mobile med management services when they came as scheduled on 06/17/2019. She also reported increasing aggression and disorganization, and had been asking for drugs and alcohol from his downstairs neighbor. The 302 petition completed by his [facility] states "Tuesday, June 18, 2019 Kwesi made statements to housemates and the sees caught on video) shown to this worker that he will destroy them, kill them and raped them. He was stating he would make people his sex slave forever. He ran downstairs naked on Wednesday, June 19, 2019 demanding marijuana and alcohol from women downstairs. Kwesi was discharged from inpatient 303 commitment on 06/13/2019, has been consuming alcohol regularly per his report and not showing up for work. Kwesi stated to this worker today that I am 1/10 of a person because I am a woman and he is stronger than this caption writer and he will destroy this caption writer. Kweis's speech is rapid and disorganized. He is struggling to account for his weekend and his belongings which is unlike him. It is the opinion of this caption writer that Kwesi is in need of evaluation and psychiatric care. This caption writer attempted to get him to return to the emergency department where he was last night due to his disoriented state yesterday. He refused. This caption writer feels Kwesi is in danger of hurting his housemates and himself." The patient was disorganized in the ER, unable to answer questions appropriately. He reported drinking large amounts of coffee, not sleeping, and working 60 hours a week, although when he was discharged 1 week ago he was given a letter for work restrictions of 40 hours a week at his request. Labs showed anemia, hypokalemia with a potassium of 3.3, glucose 121, TSH 0.970, urinalysis with trace protein and ketones and 20-30 epithelial cells, and drug screen was negative. He received haloperidol 5 mg and lorazepam 2 mg in the ER, was ultimately admitted involuntarily. As it was not known if he had been compliant with clozapine or not, he was restarted on 25 mg last night, and appeared to sleep well. He was also continued on his home dose of sertraline 75 mg daily. This morning, he has been disorganized, hypersexual, requiring frequent redirection for inappropriate behavior. Staff observed him inappropriately touching a female health inspector food this morning, and he said that he did it "to intimidate her because she told me that she was going to sleep with her boyfriend in front of me." On my assessment, he was seen in his room in the [facility], with Manuel GONSALES, with his permission. He required redirection on multiple occasions due to invasion of personal space. He gave a difficult to follow description of events that led up to his hospitalization, stating that he lost his wallet and phone at the library, and ran out of his house naked to look for it, and police saw him. He said that he was very worried that somebody would find his things and use his credit cards or bank card. He says he knocked on his neighbor's door while naked and asked him to call the police because he had lost his belongings and feared that he would of a heart attack if he could not find them. When asked why he was outside of his home naked, he stated that he was in the shower when he realized he lost his items, "so I panicked and ran out." He says that the police brought him home to put clothes on, and while there, he found his wallet and phone. He then says that he told the police to bring him to the hospital and to keep him here until they find his wallet. He says that he has been "very good" in the past week since he was discharged from the unit, going to work and taking his medications. He then says that he has not returned to work yet, as he was not put back on the schedule until this week. When asked what he thinks is going on that he keeps losing his phone and wallet (as this was the same stressor that triggered his last hospitalization), he says "I'm a workaholic, if I cannot work I will . I intend to stay awake until I find my ID and phone, so I will not have a heart attack." He denies that he made any threats to his roommates, but then states that he got drunk on his birthday, which was 3 days prior to presentation, and may have said some concerning things then, although he is unable to give any details. He denies any current thoughts to harm himself or others, but continues to state that he fears he will of a heart attack as a result of losing his belongings. He denies that he has been noncompliant with medications, and does not feel that he needs to be in the hospital. When informing him o my concerns and the plan to hold a 303 hearing tomorrow, he became increasingly agitated, repeatedly invaded my personal space, and became more disorganized, to the point of word salad. He repeatedly referred to himself as God, and stated he could "do anything I want," and was talking about women being "sex slaves for life." He then smacked himself lightly on the face with an open palm, and punched himself in the stomach. He continued to pursue me what I attempted to end the interview, and nursing staff responded and offered him as needed medications. He took oral haloperidol and lorazepam, but moments later was heard vomiting loudly in his room. IM medications were then ordered. Past Psychiatric History Previous Psych History: History of schizophrenia and depression. Current Psychiatric Diagnosis: Schizophrenia and depression Outpatient Services: Psychiatrist: Dr. Markham at [facility] Therapist: Kaycee Caceres at [facility] Blended correctional case records supervisor: Neda Pena with the base service unit [email or web address] mobile med management Previous Psych Admissions: [facility]: 05/2019, 04/2018, 04/2015 [facility] for 8 months in 2016 [place] / (discharged to the [facility]), 09/2015 Do You Have Access To A Gun?: No History of Previous Suicide Attempt: Yes Describe Attempts in the Past: multiple past attempts via OD Past Medication Trials: Include but not limited to: Clozapine -effective, but multiple episodes of nonadherence requiring re- titration Risperidone Sertraline Citalopram Prazosin -patient reported he was no longer experiencing nightmares, so discontinued it Allergies Allergy/AdvReac Type Severity Reaction Status Date / Time No Known Drug Allergies Allergy Unknown Verified 06/20/19 16:45 Home Medications Home Medications Medication Instructions Recorded Confirmed Type clozapine 300 mg PO HS #90 tab 06/13/19 06/20/19 Rx sertraline 75 mg PO DAILY 06/13/19 06/20/19 History Family History Family History of: Doesn't Know Alcohol History Hx of Alcohol Use Over the Past 12 Months: Yes (CM reports increase alcohol use, patient denies) AUDIT Total Score: 1 Smoking Use Have You Smoked or Used Tobacco Products in the Last 30 Days: No Smoking Status: Never smoker Substance History Hx of Prescription Med Misuse Over the Past 12 Months: No Hx of Over the Counter Med Misuse Over the Past 12 Months: No Hx of Inhalent Misuse Over the Past 12 Months: No Hx of Organic Substance Use Over the Past 12 Months: No Hx of Illegal Substances/Street Drug Use Over Past 12 Months: No Problems as a Result of Past Substance Use: None Identified Personal History Living Arrangements: Apartment Living Arrangements Comments: In [place] with college student roommates. Transitioned out of the [facility] about a month ago. Born In: [place] Highest Grade Completed: Some College Highest Grade Completed Comment: Reports he has 1 semester left to finish an undergraduate degree. 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 Patient History Medical History Somnolence (Acute) Mood disorder (Acute) Sleep deprivation (Acute) Anxiety Altered mental status (Acute) Normocytic anemia Alcohol use disorder (Chronic) In remission. Eosinophilia Schizophrenia (Chronic) Diagnosed in 2017. Followed by [facility] and Dr. Ennis Managed with clozapine + sertraline + prazosin Suicide attempt Metabolic encephalopathy Schizophrenia Social History Preferred Language: Armenian Communication Ability: Effective Visual Impairment: No Limitations Hearing Ability: Normal Tail Trimmer Required: No Beliefs That Will Affect Care: None marital status: Single Current Living Situation: Alone Current Living Situation Comment: Apartment , see ED admission report current occupational status: employed Feels Safe at Home: Yes Smoking Status: Never smoker Cigarettes Per Day: Patient unresponsive at this time ; Hx Alcohol Use: Yes Hx Substance Use: No (unknown) Seatbelt Use: always Review of Systems Review of Systems: Unobtainable due to mental health condition Physical Exam Psychiatric: Orientation: alert; + uncooperative (Partially, poor historian due to psychosis) Apperance: + disheveled Limited hygiene and grooming. Eye Contact: + poor eye contact Heavy eyelids, appears very sleepy at times avoids eye contact, other times stares intently. Motor Behavior: steady gait and station and + psychomotor agitation Repeatedly invades my personal space, briefly responds to redirection but then again closes in. Fidgeting, gesticulating, and hitting himself. Spontaneous speech; stutter, which increases with increased agitation. Affect: + irritable affect; + mood not congruent with affect "Fine." Thought Process: + tangential thought process, + perseveration, + incoherent thought process and + word salad Thought Content: + preoccupation (With loss of belongings), + delusions (States that he is becoming God and can do anything, referring to women as a sex slave), + persecution and + hopelessness Suicidal Thoughts: denies suicidal thoughts But reports belief that he will of a heart attack of his phone and wallet are not found immediately. Homicidal Thoughts: denies homicidal thoughts But per 302 petition, threatened his roommates within the last several days stating that he would rape, kill, and destroy them, and also threatened to destroy his correctional case records supervisor. Patient denies hallucinations, but is not a reliable historian. Cognition: + recent memory not intact, + remote memory not intact, + attention not intact and + language not intact Insight: + severely impaired insight Judgement: + severely impaired judgement Vital Signs (Past 24 Hours): Last Vital Signs Temp 36.6 C 06/21/19 07:01 Pulse 103 H 06/21/19 07:01 Resp 18 06/21/19 07:01 BP 127/87 06/21/19 07:01 Pulse Ox 97 06/20/19 15:01 Exam Statement: A physical exam was performed in the ER prior to admission to the unit by Dr. Vance Jimenez. I accept that physical as correct/medical clearance for the inpatient physical exam. Results & Data Laboratory Results Laboratory Results - last 24 hr 06/20/19 06/20/19 06/20/19 15:16 15:16 15:36 WBC 10.74 RBC 4.34 L Hgb 13.1 L Hct 38.5 L MCV 88.7 MCH 30.2 MCHC 34.0 RDW Std Deviation 49.2 H RDW Coeff of Tawanna 15.1 H Plt Count 355 MPV 10.3 Immature Gran % (Auto) 0.1 Neut % (Auto) 58.3 Lymph % (Auto) 33.1 Canadian % (Auto) 6.7 Eos % (Auto) 1.5 Baso % (Auto) 0.3 Immature Gran # (Auto) 0.01 Neut # (Auto) 6.27 Lymph # (Auto) 3.55 H Canadian # (Auto) 0.72 H Eos # (Auto) 0.16 Baso # (Auto) 0.03 Sodium Potassium Chloride Carbon Dioxide Anion Gap BUN Creatinine Est Cr Clr Drug Dosing Est GFR ( Amer) Est GFR (Non-Af Amer) BUN/Creatinine Ratio Glucose Calcium Total Bilirubin AST ALT Alkaline Phosphatase Total Protein Albumin Globulin Albumin/Globulin Ratio Urine Color Yellow Urine Appearance Clear Urine pH 6.5 Ur Specific [place] 1.027 Urine Protein Trace H Urine Glucose (UA) Negative Urine Ketones Trace H Urine Blood Negative Urine Nitrite Negative Urine Bilirubin Negative Urine Urobilinogen Negative Ur Leukocyte Esterase Negative Urine WBC (Auto) 1-5 Urine RBC (Auto) 0-4 U Hyaline Cast (Auto) 5-10 H U Epithel Cells (Auto) 20-30 H Urine Bacteria (Auto) Negative Salicylates Urine Opiates Screen Neg Ur Methadone, Qual Neg Acetaminophen Urine Barbiturates Neg Ur Phencyclidine (PCP) Neg U Amphetamin/Meth Scrn Neg MDMA (Ecstasy) Screen Neg U Benzodiazepines Scrn Neg Ur Cocaine Metabolite Neg U Marijuana (THC) Screen Neg Ethyl Alcohol mg/dL 06/20/19 06/20/19 06/20/19 15:36 15:36 15:36 WBC RBC Hgb Hct MCV MCH MCHC RDW Std Deviation RDW Coeff of Tawanna Plt Count MPV Immature Gran % (Auto) Neut % (Auto) Lymph % (Auto) Canadian % (Auto) Eos % (Auto) Baso % (Auto) Immature Gran # (Auto) Neut # (Auto) Lymph # (Auto) Canadian # (Auto) Eos # (Auto) Baso # (Auto) Sodium 140 Potassium 3.3 L Chloride 106 Carbon Dioxide 24 Anion Gap 10.0 BUN 11 Creatinine 1.01 Est Cr Clr Drug Dosing 115.7 Est GFR ( Amer) 117.6 Est GFR (Non-Af Amer) 101.5 BUN/Creatinine Ratio 10.8 Glucose 121 H Calcium 8.8 Total Bilirubin 0.5 AST 26 ALT 41 Alkaline Phosphatase 85 Total Protein 7.7 Albumin 3.5 Globulin 4.2 H Albumin/Globulin Ratio 0.8 L Urine Color Urine Appearance Urine pH Ur Specific [place] Urine Protein Urine Glucose (UA) Urine Ketones Urine Blood Urine Nitrite Urine Bilirubin Urine Urobilinogen Ur Leukocyte Esterase Urine WBC (Auto) Urine RBC (Auto) U Hyaline Cast (Auto) U Epithel Cells (Auto) Urine Bacteria (Auto) Salicylates < 1.7 L Urine Opiates Screen Ur Methadone, Qual Acetaminophen < 2 L Urine Barbiturates Ur Phencyclidine (PCP) U Amphetamin/Meth Scrn MDMA (Ecstasy) Screen U Benzodiazepines Scrn Ur Cocaine Metabolite U Marijuana (THC) Screen Ethyl Alcohol mg/dL < 3.0 Current Inpatient Medications Current Inpatient Medications: Current Inpatient Medications Acetaminophen (Tylenol) 650 mg PO Q4H PRN PRN Reason: Headache or Minor Fever Stop: 07/20/19 17:46 Al Hydrox/Mg Hydrox/Simethicone (Maalox) 30 ml PO Q4H PRN PRN Reason: GI Upset Stop: 07/20/19 17:46 Bismuth Subsalicylate (Kaopectate) 15 ml PO PRN PRN PRN Reason: Loose Stool Stop: 07/20/19 17:46 Clozapine (Clozaril) 25 mg PO HS LINO Stop: 07/20/19 21:59 Last Admin: 06/20/19 21:26 Dose: 25 mg Documented by: Haloperidol (Haldol) 5 mg PO Q4H PRN PRN Reason: psychosis Stop: 07/20/19 17:49 Hydroxyzine HCl (Vistaril) 25 mg PO Q4H PRN PRN Reason: Anxiety Stop: 07/20/19 17:46 Hydroxyzine HCl (Vistaril) 50 mg PO HSZ PRN PRN Reason: Insomnia Stop: 07/20/19 17:46 Lorazepam (Ativan) 2 mg PO Q4H PRN PRN Reason: Anxiety Stop: 07/20/19 17:48 Magnesium Hydroxide (Milk Of Magnesia) 30 ml PO DAILY PRN PRN Reason: Constipation Stop: 07/20/19 17:46 Sertraline HCl (Zoloft) 75 mg PO QAM LINO Stop: 07/21/19 08:59 Last Admin: 06/21/19 07:56 Dose: 75 mg Documented by: Sodium Chloride (Merigold Nasal) 1 - 2 sprays NA PRN PRN PRN Reason: Nasal Dryness/Congestion Stop: 07/20/19 17:46 CPT Code CPT Code Initial Hospital Care: 24272
[2019-06-21] MEDS: haloperidoL 5 MG TAB PO SCH ×2 (08:44→21:38)
[2019-06-21] MEDS: haloperidoL 5 MG TAB PO PRN (09:53)
[2019-06-21] MEDS: LORazepam 1 MG TAB PO PRN (09:54)
[2019-06-21] MEDS ORDERED: HALOPERIDOL LACTATE 5 MG/ML 1 ML VIAL IM PRN (10:00)
[2019-06-21] MEDS ORDERED: BENZTROPINE MESYLATE 1 MG/ML 2 ML AMP IM PRN (10:02)
[2019-06-21] MEDS ORDERED: LORazepam 2 MG/ML VIAL (IM USE) IM STA (10:08)
[2019-06-21] MEDS ORDERED: HALOPERIDOL LACTATE 5 MG/ML 1 ML VIAL ONE (10:09)
[2019-06-21] MEDS ORDERED: LORazepam 2 MG/ML VIAL (IM USE) ONE (10:10)
[2019-06-21] MEDS ORDERED: BENZTROPINE MESYLATE 1 MG/ML 2 ML AMP ONE (10:11)
[2019-06-21] MEDS ORDERED: BENZTROPINE MESYLATE 1 MG TAB PO PRN (10:39)
[2019-06-21] MEDS: cloZAPine 100 MG TAB PO SCH (21:35)
[2019-06-22] MEDS: LORazepam 1 MG TAB PO PRN (06:47)
[2019-06-22] MEDS: SERTRALINE HCL 50 MG TABLET PO SCH (07:19)
[2019-06-22] MEDS: haloperidoL 5 MG TAB PO SCH ×2 (07:20→21:12)
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
[2019-06-22] MEDS: cloZAPine 100 MG TAB PO SCH (21:12)
[2019-06-23] MEDS: haloperidoL 5 MG TAB PO SCH ×2 (07:41→20:47)
[2019-06-23] MEDS: SERTRALINE HCL 50 MG TABLET PO SCH (07:41)
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
[2019-06-23] MEDS: haloperidoL 5 MG TAB PO PRN (17:13)
[2019-06-23] MEDS: cloZAPine 100 MG TAB PO SCH (20:45)
[2019-06-24] MEDS: SERTRALINE HCL 50 MG TABLET PO SCH (08:07)
[2019-06-24] MEDS: haloperidoL 5 MG TAB PO SCH ×2 (08:07→21:01)
[2019-06-24] MEDS ORDERED: HALOPERIDOL DECANOATE INJ 50 MG/ML VIAL IM ONE (12:00)
--- NOTE | 2019-06-24 14:16 | Psychiatric Progress Note ---
Date of Service June 24, 2019 Impression / Recommendations Tatianna Orosco is a 29-year-old [place] male who lives with roommates in [place], has a history of schizophrenia, depression, alcohol use disorder, and treatment nonadherence, and has had multiple hospitalizations in the past month since he was discharged from the [facility] longterm and moved to independent living in an apartment with several roommates. Both of his hospitalizations this past month have been triggered by erratic, disorganized behavior in the community, including going out in public in the nude, threatening other people, and severely disorganized thinking and speech. The patient's strengths include the fact that he does respond favorably to psychiatric medications. However, and overarching deficit is the fact that he is repeatedly not adherent with psychiatric treatment, including psychiatric medications, and tends to decompensate quickly. These decompensations are associated with dangerous behaviors, both to self and others, that rise to the level of risk of eminent serious physical harm. Complicating the clinical picture is the fact that the patient has only minimal insight into the fact that he has a mental illness and although he faithfully promises to be adherent with treatment, the recent history is that he has consistently not been adherent. Today, the patient was able to take a look at these circumstances and he accepted the recommendation that we began a Depo form of haloperidol. He understands that we will be continuing clozapine and, at least for a time, oral Haldol as we titrate Haldol Decanoate. The patient will receive Haldol Decanoate 25 mg today, and will be given additional 50 mg of Haldol Decanoate in 3 days, as tolerated. The plan will be to repeat every 28 days, and titrate as indicated. The plan will also be to taper and eventually discontinue the dose of oral Haldol as clinically indicated. (1) Schizophrenia: 06/21 -re-titrate clozapine to home dose of 300 mg at bedtime. Consider adding Haldol Decanoate for augmentation and concerns for due to nonadherence with oral medications. -Haloperidol as needed has been beneficial, so we will continue, while scheduling 5 mg twice daily. -Lorazepam 2 mg p.o./IM every 4 hours as needed for psychosis/agitation. -Benztropine as needed for EPS. -Coordinate care with blended counter caser, and outpatient clinicians at [facility]. -Patient is giving inconsistent reports, but on presentation reported he had not been sleeping, which could explain some of his manic symptoms on presentation, as well as exacerbation of psychotic illness. Continue to assess and treat as necessary. 06/22 -continue medically necessary private room given degree of psychosis, disinhibition, sexually inappropriate behavior, and threats to others. -Continue clozapine titration and weekly CBC with differential. ANC 6.27 on 06/20/2019. -Continue haloperidol 5 mg twice daily, with 10 mg IM as needed. -Contact M for clarification of medication compliance at home, and roommates for clarification of threats he made to them prior to admission. -303 hearing scheduled for tomorrow. 06/23 - 303 commitment granted. - Continue current medications, and recommend Haldol decanoate if current dose if effective. - Meeting with [facility] to discuss treatment plan (KESHIA CONDE). - Coordinate care with Dr. Aguilar at [facility] to call clinical implementation specialist. 06/24 -Haldol appears to be effective and well-tolerated. -Haldol decanoate started today at a dose of 25 mg IM. A 50 mg dose of Haldol decanoate will be given IM in 3 days. -Oral haloperidol will be continued 5 mg twice a day, but will be tapered as clinically indicated, depending upon the patient's response to the above. -Clozapine will be increased to 200 mg at bedtime, and further titrations will be made based on patient's clinical response. (2) Homicidal ideation: 06/21 -the petition from the patient's [facility] states he threatened to harm his roommates. Would recommend they be contacted to clarify the statements made in the housing situation, including whether the patient is even able to return to the apartment. 06/23 - unable to contact roommates as do not have contact information, but he did sign a release to contact his landlord. 06/24 -The patient is denying homicidal ideation and denies that he threatened his roommates. However, there is objective evidence that he did, in fact, make threats to cause serious physical harm to others prior to admission. (3) Depression: 06/21 -continue home dose of sertraline 75 mg daily. Continue to assess and monitor mood his psychosis improves. 06/24 -sertraline will be continued for depression and anxiety. (4) Anxiety: 06/21 -patient reports episodic anxiety in the context of believing he lost his keys and wallet. As needed medications as above, continue sertraline as above. Once he is less psychotic, encourage group attendance and participation, work on healthy coping skills and behavioral techniques for managing anxiety. 06/14 -sertraline is being continued for both anxiety and depression. (5) Alcohol use disorder: 06/21 -patient reports he drank to intoxication on his birthday several days prior to hospitalization. This likely contributed to decompensation. Once he is less psychotic, will engage in further discussion of the risks of substance abuse and recommendations for abstinence. Inventory Assets Strengths: Employed, goals for the future Needs: Adherence with treatment recommendations, maintenance of regular sleep schedule Risk Factors Assessment Male: Yes Do You Have Access To A Gun?: No Health Problems: No Mental Health Diagnoses: Yes Substance Use Disorders: Yes Previous Attempt: Yes Previous Psychiatric Hospitalization: Yes Hopelessness: Yes Protective Factors Assessment : No Responsible for Young Children: No Employed: Yes ([employer] at local [employer]) Stable Relationships: No Supportive Family: No Interval History Identifying Information LEXII TEE is a 29-year-old M who currently lives in [place] with roommates, has a history of schizophrenia, and was admitted on 06/20/19 17:47 on a 302 involuntary commitment for psychosis, agitation, and threats to rape and kill others. He is on a 303 involuntary commitment as of 06/23/2019 Chief Complaint "It was all just a misunderstanding.". Review of Systems Sleep Information Total Hours of Sleep: 6.5 Sleep Comments: pt on q-15 minute checks Meal Information Percent Meal Consumed - Breakfast: 100 Percent Meal Consumed - Lunch: 100 Percent Meal Consumed - Dinner: 100 Nutrition Comment: pt. asleep Subjective Subjective Patient was seen & assessed and interval progress reviewed with treatment team. I met individually with the patient in order to assess his current mental status, evaluate his response to treatment, make any necessary changes in the patient's treatment regimen and coordination with the patient, and address questions and concerns that may arise. The patient begins by telling me that his admission had been the results of a misapprehension. Specifically, he reports that he was taking a shower when he "suddenly" remember that he had left his wallet and cell phone "outside." He "panicked" and ran outdoors, while forgetting that he was completely nude. When asked about the reports that he had told women that he intended to make them his "sex slave's," the patient said that that was a misunderstanding as well and that what he had said was directed towards his male roommates, and his assertion is that he said something along the lines of, "if you want me to go with the police all have to be your sex slave." Of note is the fact that these assertions are very significantly from previous reports, including his report during his recent involuntary commitment hearing. When confronted with the report that he had not been taking his psychiatric medications following his most recent previous discharge, the patient asserts that this is not true and that, in fact, he was taking his medications as prescribed. He did not immediately said that he took his medications in front of the police when the police were called to respond because he was out of doors without any clothes on. Essentially, for each reference to psychiatric symptoms are problematic behaviors the patient offers explanations that appear fabricated "on the spot" and often are not consistent with documented facts or seem illogical. We talked at some length about his history of nonadherence with medications and eventually the patient was able to acknowledge that he has been nonadherent with psychiatric medications, in part because he feels that he does not have any significant psychiatric illness. We also discussed injectable Depo medications that can be used to treat his psychiatric illness, and the patient has several questions and indicated that he would be willing to accept this.. Physical Exam Psychiatric Orientation: alert and oriented x 3 Apperance: appropriately dressed Eye Contact: + poor eye contact Motor Behavior: no abnormal motor movements Patient's speech is spontaneous and delivered at a normal rate and volume. He has a fairly pronounced stutter. Affect: + constricted affect "My mood is fine." Thought Process: + tangential thought process and + perseveration Thought Content: + delusions (The patient presents with psychotic denial. For example, he insists that it is "normal" for an adult man to forget that he is mood and then run outside.) Suicidal Thoughts: denies suicidal thoughts Homicidal Thoughts: denies homicidal thoughts Hallucinations: + auditory hallucinations (Although the patient denies that he is hearing voices, he clearly is responding to internal stimuli as evidenced by his tendency to periodically turn suddenly as if hearing a voice, or look at an empty space, smile, not and gesture.) Assessment of the patient's memory is difficult because of his tendency to confabulate responses Estimated Intelligence: + above average estimated intelligence Insight: + severely impaired insight Judgement: + poor judgement Today, the patient is willing to acknowledge that he has a mental illness and is willing to accept psychiatric medications. Vital Signs (Past 24 Hours) Last Vital Signs Temp 36.6 C 06/24/19 06:51 Pulse 80 06/24/19 06:51 Resp 20 06/24/19 06:51 BP 144/90 H 06/24/19 06:51 Pulse Ox 97 06/20/19 15:01 Results & Data Current Inpatient Medications Current Inpatient Medications: Current Inpatient Medications Acetaminophen (Tylenol) 650 mg PO Q4H PRN PRN Reason: Headache or Minor Fever Stop: 07/20/19 17:46 Al Hydrox/Mg Hydrox/Simethicone (Maalox) 30 ml PO Q4H PRN PRN Reason: GI Upset Stop: 07/20/19 17:46 Benztropine Mesylate (Cogentin) 1 mg IM Q4H PRN PRN Reason: EPS Stop: 07/21/19 10:01 Benztropine Mesylate (Cogentin) 1 mg PO Q4H PRN PRN Reason: EPS Stop: 07/21/19 10:44 Bismuth Subsalicylate (Kaopectate) 15 ml PO PRN PRN PRN Reason: Loose Stool Stop: 07/20/19 17:46 Clozapine (Clozapine) 150 mg PO HS LINO; Taper Stop: 06/27/19 21:59 Last Admin: 06/23/19 20:45 Dose: 150 mg Documented by: Haloperidol (Haldol) 5 mg PO Q4H PRN PRN Reason: psychosis Stop: 07/20/19 17:49 Last Admin: 06/23/19 17:13 Dose: 5 mg Documented by: Haloperidol (Haldol) 5 mg PO BID LINO Stop: 07/21/19 08:59 Last Admin: 06/24/19 08:07 Dose: 5 mg Documented by: Haloperidol Lactate (Haldol) 10 mg IM Q4H PRN PRN Reason: psychosis Stop: 07/21/19 09:59 Hydroxyzine HCl (Vistaril) 25 mg PO Q4H PRN PRN Reason: Anxiety Stop: 07/20/19 17:46 Hydroxyzine HCl (Vistaril) 50 mg PO HSZ PRN PRN Reason: Insomnia Stop: 07/20/19 17:46 Lorazepam (Ativan) 2 mg PO Q4H PRN PRN Reason: Anxiety Stop: 07/20/19 17:48 Last Admin: 06/22/19 06:47 Dose: 2 mg Documented by: Magnesium Hydroxide (Milk Of Magnesia) 30 ml PO DAILY PRN PRN Reason: Constipation Stop: 07/20/19 17:46 Sertraline HCl (Zoloft) 75 mg PO QAM LINO Stop: 07/21/19 08:59 Last Admin: 06/24/19 08:07 Dose: 75 mg Documented by: Sodium Chloride ([place] Nasal) 1 - 2 sprays NA PRN PRN PRN Reason: Nasal Dryness/Congestion Stop: 07/20/19 17:46 Mental Health & Subst Abuse Tx Therapist Name of Therapist: SUSANNAH Caceres Health And Wellness Coach Name of Health And Wellness Coach: LOGAN Pena Date of Appointment with Health And Wellness Coach: 06/23/19 Time of Appointment with Health And Wellness Coach: 9:30am Post Discharge Appointments Primary Care Physician Name Of Family Doctor: [facility] - Dr. Duane Delgado CPT Code CPT Code 53427
[2019-06-24] MEDS: cloZAPine 100 MG TAB PO SCH (21:01)
[2019-06-25] MEDS: SERTRALINE HCL 50 MG TABLET PO SCH (08:27)
[2019-06-25] MEDS: haloperidoL 5 MG TAB PO SCH ×2 (08:27→21:10)
--- NOTE | 2019-06-25 08:53 | Psychiatric Progress Note ---
Date of Service June 25, 2019 Impression / Recommendations Tatianna Orosco is a 29-year-old [place]ian male who lives with roommates in [place], has a history of schizophrenia, depression, alcohol use disorder, and treatment nonadherence, and has had multiple hospitalizations in the past month since he was discharged from the [facility] penit[facility]iary and moved to independent living in an apartment with several roommates. Both of his hospitalizations this past month have been triggered by erratic, disorganized behavior in the community, including going out in public in the nude, threatening other people, and severely disorganized thinking and speech. The patient's strengths include the fact that he does respond favorably to psychiatric medications. However, and overarching deficit is the fact that he is repeatedly not adherent with psychiatric treatment, including psychiatric medications, and tends to decompensate quickly. These decompensations are associated with dangerous behaviors, both to self and others, that rise to the level of risk of eminent serious physical harm. Pt has been resumed on home dose of sertraline 75mg, and clozapine has been titrated to previous dosing of 300mg qHS. The patient received Haldol Decanoate 25 mg on 06/24/19, and will be given additional 50 mg of Haldol Decanoate on 06/27, as tolerated. The plan will be to repeat every 28 days, and titrate as indicated. The plan will also be to taper and eventually discontinue the dose of oral Haldol as clinically indicated. He continues to demonstrate psychotic behavior by responding to internal stimuli and demonstrating poor insight into his condition. Inpatient psychiatric treatment remains medically necessary. (1) Schizophrenia: 06/21 -re-titrate clozapine to home dose of 300 mg at bedtime. Consider adding Haldol Decanoate for augmentation and concerns for due to nonadherence with oral medications. -Haloperidol as needed has been beneficial, so we will continue, while scheduling 5 mg twice daily. -Lorazepam 2 mg p.o./IM every 4 hours as needed for psychosis/agitation. -Benztropine as needed for EPS. -Coordinate care with blended pillowcase turner, and outpatient clinicians at [facility]. -Patient is giving inconsistent reports, but on presentation reported he had not been sleeping, which could explain some of his manic symptoms on presentation, as well as exacerbation of psychotic illness. Continue to assess and treat as necessary. 06/22 -continue medically necessary private room given degree of psychosis, disinhibition, sexually inappropriate behavior, and threats to others. -Continue clozapine titration and weekly CBC with differential. ANC 6.27 on 06/20/2019. -Continue haloperidol 5 mg twice daily, with 10 mg IM as needed. -Contact [facility] for clarification of medication compliance at home, and roommates for clarification of threats he made to them prior to admission. -303 hearing scheduled for tomorrow. 06/23 - 303 commitment granted. - Continue current medications, and recommend Haldol decanoate if current dose if effective. - Meeting with [facility] to discuss treatment plan (KESHIA CONDE). - Coordinate care with Dr. Aguilar at [facility] - to call clinical lab technologist. 06/24 -Haldol appears to be effective and well-tolerated. -Haldol decanoate started today at a dose of 25 mg IM. A 50 mg dose of Haldol decanoate will be given IM in 3 days. -Oral haloperidol will be continued 5 mg twice a day, but will be tapered as clinically indicated, depending upon the patient's response to the above. -Clozapine will be increased to 200 mg at bedtime, and further titrations will be made based on patient's clinical response. 06/25 - Continue current medication regimen - Order is scheduled for 50mg of haldol decanoate 50mg on 06/27; at which time we will reduce oral haloperidol dosing - Clozapine to be increased to 250mg this evening (2) Homicidal ideation: 06/21 -the petition from the patient's [facility] states he threatened to harm his roommates. Would recommend they be contacted to clarify the statements made in the housing situation, including whether the patient is even able to return to the apartment. 06/23 - unable to contact roommates as do not have contact information, but he did sign a release to contact his landlord. 06/24 -The patient is denying homicidal ideation and denies that he threatened his roommates. However, there is objective evidence that he did, in fact, make threats to cause serious physical harm to others prior to admission. (3) Depression: 06/21 -continue home dose of sertraline 75 mg daily. Continue to assess and monitor mood his psychosis improves. 06/24 -sertraline will be continued for depression and anxiety. (4) Anxiety: 06/21 -patient reports episodic anxiety in the context of believing he lost his keys and wallet. As needed medications as above, continue sertraline as above. Once he is less psychotic, encourage group attendance and participation, work on healthy coping skills and behavioral techniques for managing anxiety. 06/14 -sertraline is being continued for both anxiety and depression. (5) Alcohol use disorder: 06/21 -patient reports he drank to intoxication on his birthday several days prior to hospitalization. This likely contributed to decompensation. Once he is less psychotic, will engage in further discussion of the risks of substance abuse and recommendations for abstinence. 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 He is on a 303 involuntary commitment as of 06/23/2019 Chief Complaint "I am happy. My goal today is to try to attend all groups." Review of Systems Notes Constitutional: denied Cardiovascular: denied Respiratory: denied Gastrointestinal: denied Neurological: denied Psychiatric: denies symptoms other than stated above Total of at least 10 systems reviewed, pertinent positives as above and in HPI. Sleep Information Total Hours of Sleep: 7.5 Sleep Comments: pt on q-15 minute checks Meal Information Percent Meal Consumed - Breakfast: 100 Percent Meal Consumed - Lunch: 100 Percent Meal Consumed - Dinner: 100 Nutrition Comment: pt. asleep Subjective Subjective Patient was seen & assessed and interval progress reviewed with nursing and social work. Staff report the patient continues to seem delusional and paranoid in his interactions on the unit - requesting that his blood be checked to see if he is ok. He consistently rates his mood a 10/10 and "happy" during community meetings. Pt was seen today to assess progress since admission. Pt states that his goal for today is to "attend all groups", which he says he has been successful with so far. He states that his long-term goal is to "try not to have to come back here." Pt then shares his consistent explanation of reason for admission, the same story about being in the shower when he realized his phone and wallet were missing, triggering his need to walk out of his apartment in the nude. This provider informed the patient that there is more than just this concern that is likely leading to his admissions. When asked to think of other contributing factors, the patient realistically admits that his work schedule affects his sleep, which likely contributes to his admissions. This provider agreed this was a concern, but also informed the patient that his non- compliance with medications has been an issue as well. Pt continues to deny this, stating he always takes his medications, "sometimes they just don't work as well." Pt continues to verbalize a "fear" that not showing up at work with cause him to have a heart attack. He states this fear has only been present for the past year. He shares that he is concerned about being fired, and therefore not being given a good recommendation when he searches for alternative employment. Pt denies other needs or questions at this time. Physical Exam Psychiatric Orientation: alert, oriented x 3 and + guarded (only superficially cooperative) Apperance: appropriately dressed (casually in t-shirt and scrub pants), + disheveled (wearing same clothing for several days now, mildly malodorous ) and appeared stated age Eye Contact: + fair eye contact Motor Behavior: steady gait and station Diagnosed with tic disorder and a stutter; no observed changes from baseline with regard to this. He has been observed to be making random movements during groups and when alone in his room, punching motions in the air, gesturing with hands Speech: normal rate/rhythm/volume of speech (stutter noted, unchanged from baseline) Affect: + flat affect; + mood not congruent with affect Mood: no depressed mood (consistently states he is "happy") Thought Process: + concrete thought process; + thought process not linear or logical (continues to provide illogical and inaccurate excuses for his admission) Thought Content: + preoccupation (with discharge so he can return to work, ) and + delusions Suicidal Thoughts: denies suicidal thoughts Homicidal Thoughts: denies homicidal thoughts Hallucinations: no auditory hallucinations and no visual hallucinations Patient denies, though he is frequently observed throughout the day to be talk ing and gesturing to himself as if responding to internal stimuli Cognition: attention grossly intact and language grossly intact; + recent memory not intact Insight: + impaired insight Judgement: + impaired judgement Vital Signs (Past 24 Hours) Last Vital Signs Temp 36.9 C 06/25/19 06:55 Pulse 86 06/25/19 06:55 Resp 20 06/25/19 06:55 BP 149/99 H 06/25/19 06:55 Pulse Ox 97 06/20/19 15:01 Results & Data Current Inpatient Medications Current Inpatient Medications: Current Inpatient Medications Acetaminophen (Tylenol) 650 mg PO Q4H PRN PRN Reason: Headache or Minor Fever Stop: 07/20/19 17:46 Al Hydrox/Mg Hydrox/Simethicone (Maalox) 30 ml PO Q4H PRN PRN Reason: GI Upset Stop: 07/20/19 17:46 Benztropine Mesylate (Cogentin) 1 mg IM Q4H PRN PRN Reason: EPS Stop: 07/21/19 10:01 Benztropine Mesylate (Cogentin) 1 mg PO Q4H PRN PRN Reason: EPS Stop: 07/21/19 10:44 Bismuth Subsalicylate (Kaopectate) 15 ml PO PRN PRN PRN Reason: Loose Stool Stop: 07/20/19 17:46 Clozapine (Clozapine) 200 mg PO HS LINO; Taper Stop: 06/27/19 21:59 Last Admin: 06/24/19 21:01 Dose: 200 mg Documented by: Haloperidol (Haldol) 5 mg PO Q4H PRN PRN Reason: psychosis Stop: 07/20/19 17:49 Last Admin: 06/23/19 17:13 Dose: 5 mg Documented by: Haloperidol (Haldol) 5 mg PO BID LINO Stop: 07/21/19 08:59 Last Admin: 06/25/19 08:27 Dose: 5 mg Documented by: Haloperidol Decanoate (Haldol Decanoate) 50 mg IM ONE ONE Stop: 06/27/19 09:01 Haloperidol Lactate (Haldol) 10 mg IM Q4H PRN PRN Reason: psychosis Stop: 07/21/19 09:59 Hydroxyzine HCl (Vistaril) 25 mg PO Q4H PRN PRN Reason: Anxiety Stop: 07/20/19 17:46 Hydroxyzine HCl (Vistaril) 50 mg PO HSZ PRN PRN Reason: Insomnia Stop: 07/20/19 17:46 Lorazepam (Ativan) 2 mg PO Q4H PRN PRN Reason: Anxiety Stop: 07/20/19 17:48 Last Admin: 06/22/19 06:47 Dose: 2 mg Documented by: Magnesium Hydroxide (Milk Of Magnesia) 30 ml PO DAILY PRN PRN Reason: Constipation Stop: 07/20/19 17:46 Sertraline HCl (Zoloft) 75 mg PO QAM LINO Stop: 07/21/19 08:59 Last Admin: 06/25/19 08:27 Dose: 75 mg Documented by: Sodium Chloride ([place] Nasal) 1 - 2 sprays NA PRN PRN PRN Reason: Nasal Dryness/Congestion Stop: 07/20/19 17:46 Mental Health & Subst Abuse Tx Therapist Name of Therapist: SUSANNAH Caceres Hemmer Automatic Name of Hemmer Automatic: LOGAN Pena Date of Appointment with Hemmer Automatic: 06/23/19 Time of Appointment with Hemmer Automatic: 9:30am Post Discharge Appointments Primary Care Physician Name Of Family Doctor: DEVYN - Dr. Duane eDlgado CPT Code CPT Code 43154
[2019-06-25] MEDS: cloZAPine 100 MG TAB PO SCH (21:06)
--- NOTE | 2019-06-26 08:49 | Psychiatric Progress Note ---
Date of Service June 26, 2019 Impression / Recommendations Tatianna Orosco is a 29-year-old [place]ian male who lives with roommates in [place], has a history of schizophrenia, depression, alcohol use disorder, and treatment nonadherence, and has had multiple hospitalizations in the past month since he was discharged from the [facility] prison and moved to independent living in an apartment with several roommates. Both of his hospitalizations this past month have been triggered by erratic, disorganized behavior in the community, including going out in public in the nude, threatening other people, and severely disorganized thinking and speech. The patient's strengths include the fact that he does respond favorably to psychiatric medications. However, and overarching deficit is the fact that he is repeatedly not adherent with psychiatric treatment, including psychiatric medications, and tends to decompensate quickly. These decompensations are associated with dangerous behaviors, both to self and others, that rise to the level of risk of eminent serious physical harm. Pt has been resumed on home dose of sertraline 75mg, and clozapine has been titrated to previous dosing of 300mg qHS. The patient received Haldol Decanoate 25 mg on 06/24/19, and will be given additional 50 mg of Haldol Decanoate on 06/27, as tolerated. The plan will be to repeat every 28 days, and titrate as indicated. The plan will also be to taper and eventually discontinue the dose of oral Haldol as clinically indicated. He continues to demonstrate psychotic behavior by responding to internal stimuli and demonstrating poor insight into his condition. Inpatient psychiatric treatment remains medically necessary. (1) Schizophrenia: 06/21 -re-titrate clozapine to home dose of 300 mg at bedtime. Consider adding Haldol Decanoate for augmentation and concerns for due to nonadherence with oral medications. -Haloperidol as needed has been beneficial, so we will continue, while scheduling 5 mg twice daily. -Lorazepam 2 mg p.o./IM every 4 hours as needed for psychosis/agitation. -Benztropine as needed for EPS. -Coordinate care with blended field case manager, and outpatient clinicians at [facility]. -Patient is giving inconsistent reports, but on presentation reported he had not been sleeping, which could explain some of his manic symptoms on presentation, as well as exacerbation of psychotic illness. Continue to assess and treat as necessary. 06/22 -continue medically necessary private room given degree of psychosis, disinhibition, sexually inappropriate behavior, and threats to others. -Continue clozapine titration and weekly CBC with differential. ANC 6.27 on 06/20/2019. -Continue haloperidol 5 mg twice daily, with 10 mg IM as needed. -Contact [facility] for clarification of medication compliance at home, and roommates for clarification of threats he made to them prior to admission. -303 hearing scheduled for tomorrow. 06/23 - 303 commitment granted. - Continue current medications, and recommend Haldol decanoate if current dose if effective. - Meeting with [facility] to discuss treatment plan (AMAYA, KESHIA). - Coordinate care with Dr. Aguilar at [facility] - to call nurse midwife/clinical instructor. 06/24 -Haldol appears to be effective and well-tolerated. -Haldol decanoate started today at a dose of 25 mg IM. A 50 mg dose of Haldol decanoate will be given IM in 3 days. -Oral haloperidol will be continued 5 mg twice a day, but will be tapered as clinically indicated, depending upon the patient's response to the above. -Clozapine will be increased to 200 mg at bedtime, and further titrations will be made based on patient's clinical response. 06/25 - Continue current medication regimen - Order is scheduled for 50mg of haldol decanoate 50mg on 06/27; at which time we will reduce oral haloperidol dosing - Clozapine to be increased to 250mg this evening 06/26 - Continue current medication regimen; pt to receive 50mg of Haldol decanoate on 06/27 - Clozapine ordered to be maintained at 300mg qHS - CBC w/diff scheduled for tomorrow (2) Homicidal ideation: 06/21 -the petition from the patient's M states he threatened to harm his roommates. Would recommend they be contacted to clarify the statements made in the housing situation, including whether the patient is even able to return to the apartment. 06/23 - unable to contact roommates as do not have contact information, but he did sign a release to contact his landlord. 06/24 -The patient is denying homicidal ideation and denies that he threatened his roommates. However, there is objective evidence that he did, in fact, make threats to cause serious physical harm to others prior to admission. (3) Depression: 06/21 -continue home dose of sertraline 75 mg daily. Continue to assess and monitor mood his psychosis improves. 06/24 -sertraline will be continued for depression and anxiety. (4) Anxiety: 06/21 -patient reports episodic anxiety in the context of believing he lost his keys and wallet. As needed medications as above, continue sertraline as above. Once he is less psychotic, encourage group attendance and participation, work on healthy coping skills and behavioral techniques for managing anxiety. 06/14 -sertraline is being continued for both anxiety and depression. (5) Alcohol use disorder: 06/21 -patient reports he drank to intoxication on his birthday several days prior to hospitalization. This likely contributed to decompensation. Once he is less psychotic, will engage in further discussion of the risks of substance abuse and recommendations for abstinence. 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 He is on a 303 involuntary commitment as of 06/23/2019. Chief Complaint "I have decided the same thing as yesterday. I need you to get me back to [facility] Review of Systems Notes Constitutional: denied Cardiovascular: denied Respiratory: denied Gastrointestinal: denied Neurological: denied Psychiatric: denies symptoms other than stated above Total of at least 10 systems reviewed, pertinent positives as above and in HPI. Sleep Information Total Hours of Sleep: 8.5 Sleep Comments: pt on q-15 minute checks Meal Information Percent Meal Consumed - Breakfast: 100 Percent Meal Consumed - Lunch: 100 Percent Meal Consumed - Dinner: 100 Nutrition Comment: pt. asleep Subjective Subjective Patient was seen & assessed and interval progress reviewed with nursing and social work. Staff report the patient has been verbalizing to multiple individuals that he would like to return to the [facility]. He continues to par ticipate in groups when appropriate, thought content reportedly becoming more reality-based over time. Pt was seen today to assess progress since admission. Pt states he is "Ok, very good." He immediately directs the conversation toward his desire to return to [facility]. Pt states, "they supported me with getting to work and making sure I took my meds. I need to go back there until I am well an d they say I can live on my own again." Pt admits he is hopeful to one day return to independent living, but feels this is not in his best interest at this time. This provider shared that this would also be our recommendation for him, but that availability is currently limited. Pt's plan, as verbalized to this provider, would be to have someone check on him every day before work to make sure he took his medication, "and if I did not sleep enough, then they would call my boss and tell them I should not be working that night." He suggests this could be done by either his field case manager or the [facility] Police. Pt was informed that, while we agree that he would benefit from additional support, it would not be possible to have these individuals checking in on him daily in an independent living setting. He states, "then I definitely need to go back to [facility] and get out of my lease." Pt denies SI/HI and other acute concerns today. Physical Exam Psychiatric Orientation: alert, oriented to person, oriented to place and oriented to time Apperance: appropriately dressed, + disheveled and appeared stated age Eye Contact: good eye contact Motor Behavior: steady gait and station Historical tic disorder; unchanged from baseline Speech: + loud speech and normal rate/rhythm/volume of speech (historical stutter, unchanged from baseline) Affect: + flat affect Mood: no depressed mood ("I am very good") Thought Process: goal directed thought process and + concrete thought process Thought Content: + delusions (though gradually becoming more reality-based); no hopelessness Suicidal Thoughts: denies suicidal thoughts Homicidal Thoughts: denies homicidal thoughts Hallucinations: no auditory hallucinations and no visual hallucinations Though can be heard speaking and laughing to himself, appears to be responding at times to internal stimuli Cognition: attention grossly intact and language grossly intact Insight: + impaired insight Judgement: + impaired judgement Vital Signs (Past 24 Hours) Last Vital Signs Temp 36.3 C L 06/26/19 07:03 Pulse 76 06/26/19 07:04 Resp 18 06/26/19 07:03 BP 133/90 06/26/19 07:04 Pulse Ox 97 06/20/19 15:01 Results & Data Current Inpatient Medications Current Inpatient Medications: Current Inpatient Medications Acetaminophen (Tylenol) 650 mg PO Q4H PRN PRN Reason: Headache or Minor Fever Stop: 07/20/19 17:46 Al Hydrox/Mg Hydrox/Simethicone (Maalox) 30 ml PO Q4H PRN PRN Reason: GI Upset Stop: 07/20/19 17:46 Benztropine Mesylate (Cogentin) 1 mg IM Q4H PRN PRN Reason: EPS Stop: 07/21/19 10:01 Benztropine Mesylate (Cogentin) 1 mg PO Q4H PRN PRN Reason: EPS Stop: 07/21/19 10:44 Bismuth Subsalicylate (Kaopectate) 15 ml PO PRN PRN PRN Reason: Loose Stool Stop: 07/20/19 17:46 Clozapine (Clozapine) 300 mg PO HS LINO Stop: 07/26/19 21:59 Haloperidol (Haldol) 5 mg PO Q4H PRN PRN Reason: psychosis Stop: 07/20/19 17:49 Last Admin: 06/23/19 17:13 Dose: 5 mg Documented by: Haloperidol (Haldol) 5 mg PO BID LINO Stop: 07/21/19 08:59 Last Admin: 06/25/19 21:10 Dose: 5 mg Documented by: Haloperidol Decanoate (Haldol Decanoate) 50 mg IM ONE ONE Stop: 06/27/19 09:01 Haloperidol Lactate (Haldol) 10 mg IM Q4H PRN PRN Reason: psychosis Stop: 07/21/19 09:59 Hydroxyzine HCl (Vistaril) 25 mg PO Q4H PRN PRN Reason: Anxiety Stop: 07/20/19 17:46 Hydroxyzine HCl (Vistaril) 50 mg PO HSZ PRN PRN Reason: Insomnia Stop: 07/20/19 17:46 Lorazepam (Ativan) 2 mg PO Q4H PRN PRN Reason: Anxiety Stop: 07/20/19 17:48 Last Admin: 06/22/19 06:47 Dose: 2 mg Documented by: Magnesium Hydroxide (Milk Of Magnesia) 30 ml PO DAILY PRN PRN Reason: Constipation Stop: 07/20/19 17:46 Sertraline HCl (Zoloft) 75 mg PO QAM LINO Stop: 07/21/19 08:59 Last Admin: 06/25/19 08:27 Dose: 75 mg Documented by: Sodium Chloride (Ovilla Nasal) 1 - 2 sprays NA PRN PRN PRN Reason: Nasal Dryness/Congestion Stop: 07/20/19 17:46 Mental Health & Subst Abuse Tx Therapist Name of Therapist: SUSANNAH Caceres Sales Inspector Name of Sales Inspector: LOGAN Pena Date of Appointment with Sales Inspector: 06/23/19 Time of Appointment with Sales Inspector: 9:30am Post Discharge Appointments Primary Care Physician Name Of Family Doctor: DEV[facility] - Dr. Duane Delgado CPT Code CPT Code 64417
[2019-06-26] MEDS: haloperidoL 5 MG TAB PO SCH ×2 (09:33→21:41)
[2019-06-26] MEDS: SERTRALINE HCL 50 MG TABLET PO SCH (09:34)
[2019-06-26] MEDS: cloZAPine 100 MG TAB PO SCH (21:39)
[2019-06-27 07:21] LABS: Basophils # (auto) 0.05 K/uL (0-0.2); Basophils % (auto) 0.7 %; Eosinophils # (auto) 0.29 K/uL (0-0.5); Eosinophils % (auto) 3.9 %; Hematocrit (blood only) 41.6 % (42-52); Hemoglobin 14.4 g/dL (14.0-18.0); Immature Granulocytes # (auto) 0.01 K/uL (0.00-0.02); Immature Granulocytes % (auto) 0.1 %; Lymphocytes % (auto) 41.4 %; Mean Corpuscular Hgb Conc 34.6 g/dL (32-36); Mean Corpuscular Volume 89.7 fL (80-100); Mean Platelet Volume 9.9 fL (7.4-10.4); Monocytes # (auto) 0.49 K/uL (0.11-0.59); Monocytes % (auto) 6.6 %; Neutrophils # (auto) 3.54 K/uL (1.4-6.5); Neutrophils % (auto) 47.3 %; Platelet Count 381 K/uL (130-400); RDW Coefficient of Variation 14.9 % (11.5-14.5); RDW Standard Deviation 49.2 fL (36.4-46.3); Red Blood Count 4.64 M/uL (4.7-6.1); White Blood Count 7.48 K/uL (4.8-10.8)
[2019-06-27] MEDS: haloperidoL 5 MG TAB PO SCH ×2 (07:26→21:18)
[2019-06-27] MEDS: SERTRALINE HCL 50 MG TABLET PO SCH (07:27)
[2019-06-27] MEDS ORDERED: HALOPERIDOL DECANOATE INJ 50 MG/ML VIAL IM ONE (09:00)
--- NOTE | 2019-06-27 09:36 | Psychiatric Progress Note ---
Date of Service June 27, 2019 Impression / Recommendations Tatianna Orosco is a 29-year-old [place] male who lives with roommates in [place], has a history of schizophrenia, depression, alcohol use disorder, and treatment nonadherence, and has had multiple hospitalizations in the past month since he was discharged from the [facility] correction and moved to independent living in an apartment with several roommates. Both of his hospitalizations this past month have been triggered by erratic, disorganized behavior in the community, including going out in public in the nude, threatening other people, and severely disorganized thinking and speech. The patient's strengths include the fact that he does respond favorably to psychiatric medications. However, and overarching deficit is the fact that he is repeatedly not adherent with psychiatric treatment, including psychiatric medications, and tends to decompensate quickly. These decompensations are associated with dangerous behaviors, both to self and others, that rise to the level of risk of eminent serious physical harm. Pt has been resumed on home dose of sertraline 75mg, and clozapine has been titrated to previous dosing of 300mg qHS. The patient received Haldol Decanoate 25 mg on 06/24/19, 50 mg of Haldol Decanoate on 06/27. Oral haloperidol is being tapered to discontinuation. The plan will be to repeat every 28 days, and titrate as indicated. Pt continues to demonstrate psychotic behavior by responding to internal stimuli and demonstrating poor insight into his condition. Given frequent readmissions and clear evidence that patient is not compliant with medications, it does not seem appropriate for him to be discharged to an independently living situation at this time. Planning to complete CRR application, and discuss interim housing options that would provide the necessary level of support and supervision the patient requires to remain safe and successful in the community. Inpatient psychiatric treatment remains medically necessary. (1) Schizophrenia: 06/21 -re-titrate clozapine to home dose of 300 mg at bedtime. Consider adding Haldol Decanoate for augmentation and concerns for due to nonadherence with oral medications. -Haloperidol as needed has been beneficial, so we will continue, while scheduling 5 mg twice daily. -Lorazepam 2 mg p.o./IM every 4 hours as needed for psychosis/agitation. -Benztropine as needed for EPS. -Coordinate care with blended manager rn case, and outpatient clinicians at [facility]. -Patient is giving inconsistent reports, but on presentation reported he had not been sleeping, which could explain some of his manic symptoms on presentation, as well as exacerbation of psychotic illness. Continue to assess and treat as necessary. 06/22 -continue medically necessary private room given degree of psychosis, disin hibition, sexually inappropriate behavior, and threats to others. -Continue clozapine titration and weekly CBC with differential. ANC 6.27 on 06/20/2019. Next CBC w/diff ordered for 07/04. -Continue haloperidol 5 mg twice daily, with 10 mg IM as needed. -Contact [facility] for clarification of medication compliance at home, and roommates for clarification of threats he made to them prior to admission. -303 hearing scheduled for tomorrow. 06/23 - 303 commitment granted. - Continue current medications, and recommend Haldol decanoate if current dose if effective. - Meeting with [facility] to discuss treatment plan (KESHIA CONDE). - Coordinate care with Dr. Aguilar at [facility] to call clinical immunologist. 06/24 -Haldol appears to be effective and well-tolerated. -Haldol decanoate started today at a dose of 25 mg IM. A 50 mg dose of Haldol decanoate will be given IM in 3 days. -Oral haloperidol will be continued 5 mg twice a day, but will be tapered as clinically indicated, depending upon the patient's response to the above. -Clozapine will be increased to 200 mg at bedtime, and further titrations will be made based on patient's clinical response. 06/25 - Continue current medication regimen - Order is scheduled for 50mg of haldol decanoate 50mg on 06/27; at which time we will reduce oral haloperidol dosing - Clozapine to be increased to 250mg this evening 06/26 - Continue current medication regimen; pt to receive 50mg of Haldol decanoate on 06/27 - Clozapine ordered to be maintained at 300mg qHS - CBC w/diff scheduled for tomorrow 06/27 - Continue clozapine 300mg qHS - continue weekly CBC with differential. ANC 3.54 on 06/27/2019 - Haldol decanoate 50mg was given this morning; oral haloperidol dosage reduced to 2.5mg BID starting this evening, tapering to discontinuation - Continue to explore available housing options that will provide patient with adequate support and supervision to reduce risk of harm to self or others - commercial property manager to assist with CRR application, though unclear if there is bed availability (2) Homicidal ideation: 06/21 -the petition from the patient's [facility] states he threatened to harm his roommates. Would recommend they be contacted to clarify the statements made in the housing situation, including whether the patient is even able to return to the apartment. 06/23 - SW unable to contact roommates as do not have contact information, but he did sign a release to contact his landlord. 06/24 -The patient is denying homicidal ideation and denies that he threatened his roommates. However, there is objective evidence that he did, in fact, make threats to cause serious physical harm to others prior to admission. 06/27 - Patient continues to deny HI (3) Depression: 06/21 -continue home dose of sertraline 75 mg daily. Continue to assess and monitor mood his psychosis improves. 06/24 - sertraline will be continued for depression and anxiety. (4) Anxiety: 06/21 -patient reports episodic anxiety in the context of believing he lost his keys and wallet. As needed medications as above, continue sertraline as above. Once he is less psychotic, encourage group attendance and participation, work on healthy coping skills and behavioral techniques for managing anxiety. 06/14 -sertraline is being continued for both anxiety and depression. (5) Alcohol use disorder: 06/21 -patient reports he drank to intoxication on his birthday several days prior to hospitalization. This likely contributed to decompensation. Once he is less psychotic, will engage in further discussion of the risks of substance abuse and recommendations for abstinence. 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 He is on a 303 involuntary commitment as of 06/23/2019. Chief Complaint "I am very good, thank you. I slept very well last night." Review of Systems Notes Constitutional: reports decent sleep last evening Cardiovascular: denied Respiratory: denied Gastrointestinal: denied Neurological: denied Psychiatric: denies symptoms other than stated above Total of at least 10 systems reviewed, pertinent positives as above and in HPI. Sleep Information Total Hours of Sleep: 8.5 Sleep Comments: pt on q-15 minute checks Meal Information Percent Meal Consumed - Breakfast: 100 Percent Meal Consumed - Lunch: 100 Percent Meal Consumed - Dinner: 100 Nutrition Comment: pt. asleep Subjective Subjective Patient was seen & assessed and interval progress reviewed with treatment team. Staff report the patient has continued to rate his mood a 06/23 and "happy" in community meetings. He has not demonstrated known inappropriate behavior with peers over the course of the weekend, but continues to be observed to be gesturing or speaking to himself when not actively engaged in groups. Pt is requesting to return to the [facility] after discharge, as he recognizes he has not been successful at living independently. Pt was seen today to assess progress since admission. Pt states he is "very good" today, and reports that he slept well last evening. He states, "I have been very calm, and am doing what I am told." He reports that after speaking with a psychiatrist last week, he is not as anxious about the idea that missing work or being anxious will cause him to have a heart attack. He states that his anxiety has been reduced in the last few days. Pt shares with this provider that he will need to return to the [facility], as he feels he was able to receive necessary support in this setting. We discussed that this is also our recommendation, but that immediate bed availability is not likely. Pt continues to believe that it is appropriate for his manager rn case or the police to check in on him on a daily basis to ensure he is taking his medications. This provider agreed that a plan will need to be developed prior to discharge; however, explained to the patient that his manager rn case or police would not be able to provide this level of service to him. Pt then states, "my roommates can tell you if I am taking my medication or not. They don't like me, so I'm sure they would tell on me to you. Ask them. Ok?" Pt was reassured that we would work to develop a plan, but that we would not be contacting his roommates about this at this time. Pt denies SI/HI today, but is observed to be gesturing and talking to himself when not occupied in groups. He continues to deny A/V hallucinations. Pt denies other needs or concerns at this time. Physical Exam Psychiatric Orientation: alert, oriented x 3 and cooperative Apperance: appropriately dressed (clothes are appropriate for setting, but have not been changed in days), + disheveled and appeared stated age Eye Contact: + fair eye contact Motor Behavior: steady gait and station and no abnormal motor movements Historical tic disorder; unchanged from baseline Speech: + loud speech and normal rate/rhythm/volume of speech (monotone) Historical stutter, unchanged from baseline Affect: + flat affect; + mood not congruent with affect Mood: no depressed mood (rated mood 10/10 and "happy" and "very good") Thought Process: goal directed thought process and + concrete thought process Thought Content: + cognitive distortions; no hopelessness Suicidal Thoughts: denies suicidal thoughts Homicidal Thoughts: denies homicidal thoughts Hallucinations: no auditory hallucinations and no visual hallucinations but continues to be observed to be talking and gesturing to himself Cognition: attention grossly intact and language grossly intact Insight: + impaired insight Judgement: + impaired judgement Vital Signs (Past 24 Hours) Last Vital Signs Temp 36.8 C 06/27/19 06:54 Pulse 94 H 06/27/19 06:55 Resp 18 06/27/19 06:54 BP 120/60 06/27/19 06:55 Pulse Ox 97 06/20/19 15:01 Results & Data Laboratory Results Laboratory Results - last 24 hr 06/27/19 07:03 WBC 7.48 RBC 4.64 L Hgb 14.4 Hct 41.6 L MCV 89.7 MCH 31.0 MCHC 34.6 RDW Std Deviation 49.2 H RDW Coeff of Tawanna 14.9 H Plt Count 381 MPV 9.9 Immature Gran % (Auto) 0.1 Neut % (Auto) 47.3 Lymph % (Auto) 41.4 George % (Auto) 6.6 Eos % (Auto) 3.9 Baso % (Auto) 0.7 Immature Gran # (Auto) 0.01 Neut # (Auto) 3.54 Lymph # (Auto) 3.10 George # (Auto) 0.49 Eos # (Auto) 0.29 Baso # (Auto) 0.05 Current Inpatient Medications Current Inpatient Medications: Current Inpatient Medications Acetaminophen (Tylenol) 650 mg PO Q4H PRN PRN Reason: Headache or Minor Fever Stop: 07/20/19 17:46 Al Hydrox/Mg Hydrox/Simethicone (Maalox) 30 ml PO Q4H PRN PRN Reason: GI Upset Stop: 07/20/19 17:46 Benztropine Mesylate (Cogentin) 1 mg IM Q4H PRN PRN Reason: EPS Stop: 07/21/19 10:01 Benztropine Mesylate (Cogentin) 1 mg PO Q4H PRN PRN Reason: EPS Stop: 07/21/19 10:44 Bismuth Subsalicylate (Kaopectate) 15 ml PO PRN PRN PRN Reason: Loose Stool Stop: 07/20/19 17:46 Clozapine (Clozapine) 300 mg PO HS LINO Stop: 07/26/19 21:59 Last Admin: 06/26/19 21:39 Dose: 300 mg Documented by: Haloperidol (Haldol) 5 mg PO Q4H PRN PRN Reason: psychosis Stop: 07/20/19 17:49 Last Admin: 06/23/19 17:13 Dose: 5 mg Documented by: Haloperidol (Haldol) 5 mg PO BID LINO Stop: 07/21/19 08:59 Last Admin: 06/27/19 07:26 Dose: 5 mg Documented by: Haloperidol Lactate (Haldol) 10 mg IM Q4H PRN PRN Reason: psychosis Stop: 07/21/19 09:59 Hydroxyzine HCl (Vistaril) 25 mg PO Q4H PRN PRN Reason: Anxiety Stop: 07/20/19 17:46 Hydroxyzine HCl (Vistaril) 50 mg PO HSZ PRN PRN Reason: Insomnia Stop: 07/20/19 17:46 Lorazepam (Ativan) 2 mg PO Q4H PRN PRN Reason: Anxiety Stop: 07/20/19 17:48 Last Admin: 06/22/19 06:47 Dose: 2 mg Documented by: Magnesium Hydroxide (Milk Of Magnesia) 30 ml PO DAILY PRN PRN Reason: Constipation Stop: 07/20/19 17:46 Sertraline HCl (Zoloft) 75 mg PO QAM LINO Stop: 07/21/19 08:59 Last Admin: 06/27/19 07:27 Dose: 75 mg Documented by: Sodium Chloride ([place] Nasal) 1 - 2 sprays NA PRN PRN PRN Reason: Nasal Dryness/Congestion Stop: 07/20/19 17:46 Mental Health & Subst Abuse Tx Therapist Name of Therapist: SUSANNAH Caceres Migratory Game Bird Biologist Name of Migratory Game Bird Biologist: LOGAN Pena Date of Appointment with Migratory Game Bird Biologist: 06/23/19 Time of Appointment with Migratory Game Bird Biologist: 9:30am Post Discharge Appointments Primary Care Physician Name Of Family Doctor: [facility] - Dr. Duane Delgado CPT Code CPT Code 76051
[2019-06-27] MEDS: cloZAPine 100 MG TAB PO SCH (21:18)
--- NOTE | 2019-06-28 09:21 | Psychiatric Progress Note ---
Date of Service June 28, 2019 Impression / Recommendations Tatianna Orosco is a 29-year-old [place] male who lives with roommates in [place], has a history of schizophrenia, depression, alcohol use disorder, and treatment nonadherence, and has had multiple hospitalizations in the past month since he was discharged from the CRR half-way and moved to independent living in an apartment with several roommates. Both of his hospitalizations this past month have been triggered by erratic, disorganized behavior in the community, including going out in public in the nude, threatening other people, and severely disorganized thinking and speech. The patient's strengths include the fact that he does respond favorably to psychiatric medications. However, and overarching deficit is the fact that he is repeatedly not adherent with psychiatric treatment, including psychiatric medications, and tends to decompensate quickly. These decompensations are associated with dangerous behaviors, both to self and others, that rise to the level of risk of eminent serious physical harm. Pt has been resumed on home dose of sertraline 75mg, and clozapine has been titrated to previous dosing of 300mg qHS. The patient received Haldol Decanoate 25 mg on 06/24/19, 50 mg of Haldol Decanoate on 06/27. Oral haloperidol is being tapered to discontinuation. The plan will be to repeat every 28 days, and titrate as indicated. Pt continues to demonstrate psychotic behavior by responding to internal stimuli and demonstrating poor insight into his condition. Given frequent readmissions and clear evidence that patient is not compliant with medications, it does not seem appropriate for him to be discharged to an independently living situation at this time. Planning to complete CRR application, and discuss interim housing options that would provide the necessary level of support and supervision the patient requires to remain safe and successful in the community. Inpatient psychiatric treatment remains medically necessary. (1) Schizophrenia: 06/21 -re-titrate clozapine to home dose of 300 mg at bedtime. Consider adding Haldol Decanoate for augmentation and concerns for due to nonadherence with oral medications. -Haloperidol as needed has been beneficial, so we will continue, while scheduling 5 mg twice daily. -Lorazepam 2 mg p.o./IM every 4 hours as needed for psychosis/agitation. -Benztropine as needed for EPS. -Coordinate care with blended case briefer, and outpatient clinicians at [facility]. -Patient is giving inconsistent reports, but on presentation reported he had not been sleeping, which could explain some of his manic symptoms on presentation, as well as exacerbation of psychotic illness. Continue to assess and treat as necessary. 06/22 -continue medically necessary private room given degree of psychosis, disin hibition, sexually inappropriate behavior, and threats to others. -Continue clozapine titration and weekly CBC with differential. ANC 6.27 on 06/20/2019. Next CBC w/diff ordered for 07/04. -Continue haloperidol 5 mg twice daily, with 10 mg IM as needed. -Contact [facility] for clarification of medication compliance at home, and roommates for clarification of threats he made to them prior to admission. -303 hearing scheduled for tomorrow. 06/23 - 303 commitment granted. - Continue current medications, and recommend Haldol decanoate if current dose if effective. - Meeting with [facility] to discuss treatment plan (KESHIA CONDE). - Coordinate care with Dr. Aguilar at [facility] to call clinical sales consultant. 06/24 -Haldol appears to be effective and well-tolerated. -Haldol decanoate started today at a dose of 25 mg IM. A 50 mg dose of Haldol decanoate will be given IM in 3 days. -Oral haloperidol will be continued 5 mg twice a day, but will be tapered as clinically indicated, depending upon the patient's response to the above. -Clozapine will be increased to 200 mg at bedtime, and further titrations will be made based on patient's clinical response. 06/25 - Continue current medication regimen - Order is scheduled for 50mg of haldol decanoate 50mg on 06/27; at which time we will reduce oral haloperidol dosing - Clozapine to be increased to 250mg this evening 06/26 - Continue current medication regimen; pt to receive 50mg of Haldol decanoate on 06/27 - Clozapine ordered to be maintained at 300mg qHS - CBC w/diff scheduled for tomorrow 06/27 - Continue clozapine 300mg qHS - continue weekly CBC with differential. ANC 3.54 on 06/27/2019 - Haldol decanoate 50mg was given this morning; oral haloperidol dosage reduced to 2.5mg BID starting this evening, tapering to discontinuation - Continue to explore available housing options that will provide patient with adequate support and supervision to reduce risk of harm to self or others - digital strategist senior manager to assist with CRR application, though unclear if there is bed availability 06/28 - Continue treatment plan as above (2) Homicidal ideation: 06/21 -the petition from the patient's [facility] states he threatened to harm his roommates. Would recommend they be contacted to clarify the statements made in the housing situation, including whether the patient is even able to return to the apartment. 06/23 - SW unable to contact roommates as do not have contact information, but he did sign a release to contact his landlord. 06/24 -The patient is denying homicidal ideation and denies that he threatened his roommates. However, there is objective evidence that he did, in fact, make threats to cause serious physical harm to others prior to admission. 06/27 - Patient continues to deny HI (3) Depression: 06/21 -continue home dose of sertraline 75 mg daily. Continue to assess and monitor mood his psychosis improves. 06/24 - sertraline will be continued for depression and anxiety. (4) Anxiety: 06/21 -patient reports episodic anxiety in the context of believing he lost his keys and wallet. As needed medications as above, continue sertraline as above. Once he is less psychotic, encourage group attendance and participation, work on healthy coping skills and behavioral techniques for managing anxiety. 06/14 -sertraline is being continued for both anxiety and depression. (5) Alcohol use disorder: 06/21 -patient reports he drank to intoxication on his birthday several days prior to hospitalization. This likely contributed to decompensation. Once he is less psychotic, will engage in further discussion of the risks of substance abuse and recommendations for abstinence. 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 He is on a 303 involuntary commitment as of 06/23/2019. Chief Complaint "Yeah, I spoke to my case briefer yesterday. We have a plan for me." Review of Systems Notes Constitutional: denied Cardiovascular: denied Respiratory: denied Gastrointestinal: denied Neurological: denied Psychiatric: denies symptoms other than stated above Total of at least 10 systems reviewed, pertinent positives as above and in HPI. Sleep Information Total Hours of Sleep: 8.75 Sleep Comments: pt appeared to sleep 1.75 hrs during evening shift. pt on q-15 mnute checks Meal Information Percent Meal Consumed - Breakfast: 100 Percent Meal Consumed - Lunch: 100 Percent Meal Consumed - Dinner: 100 Nutrition Comment: pt. asleep Subjective Subjective Patient was seen & assessed and interval progress reviewed with nursing and social work. Staff report the patient has worked with his case briefer to complete a CRR application, but no beds are available. Pt was reported to have some difficulty last evening, appearing to respond to internal stimuli, and demonstrated poor focus. Pt was seen today to assess progress since admission. Pt states that he is feeling more optimistic about discharge after talking with his case briefer. He realizes a CRR bed may not be available at time of discharge, but reports that he would feel comfortable knowing that people were checking in on him with regard to sleep and medication. Pt is agreeable with the possibility of a home nurse checking in on him during the week. Pt shares with this provider that he recognizes the need to "prioritize my mental health more than work." Pt denies SI/HI and other acute needs or concerns at this time. Physical Exam Psychiatric Orientation: alert, oriented x 3 and cooperative Apperance: appropriately dressed (though clothes have been unchanged for several days) and appeared stated age Eye Contact: good eye contact Motor Behavior: steady gait and station and no abnormal motor movements historical tic disorder, unchanged from baseline Speech: normal rate/rhythm/volume of speech historical stutter, unchanged from baseline Affect: + flat affect Mood: no depressed mood ("I'm good") Thought Process: goal directed thought process and + concrete thought process Thought Content: + preoccupation (with various discharge plans) and + cognitive distortions; no hopelessness Suicidal Thoughts: denies suicidal thoughts and denies suicidal intent Homicidal Thoughts: denies homicidal thoughts Hallucinations: no auditory hallucinations and no visual hallucinations Cognition: attention grossly intact and language grossly intact Insight: + limited insight Judgement: + limited judgement Vital Signs (Past 24 Hours) Last Vital Signs Temp 36.6 C 06/28/19 06:51 Pulse 112 H 06/28/19 06:52 Resp 18 06/28/19 06:51 BP 139/81 06/28/19 06:52 Pulse Ox 97 06/20/19 15:01 Results & Data Current Inpatient Medications Current Inpatient Medications: Current Inpatient Medications Acetaminophen (Tylenol) 650 mg PO Q4H PRN PRN Reason: Headache or Minor Fever Stop: 07/20/19 17:46 Last Admin: 06/27/19 11:01 Dose: 650 mg Documented by: Al Hydrox/Mg Hydrox/Simethicone (Maalox) 30 ml PO Q4H PRN PRN Reason: GI Upset Stop: 07/20/19 17:46 Benztropine Mesylate (Cogentin) 1 mg IM Q4H PRN PRN Reason: EPS Stop: 07/21/19 10:01 Benztropine Mesylate (Cogentin) 1 mg PO Q4H PRN PRN Reason: EPS Stop: 07/21/19 10:44 Bismuth Subsalicylate (Kaopectate) 15 ml PO PRN PRN PRN Reason: Loose Stool Stop: 07/20/19 17:46 Clozapine (Clozapine) 300 mg PO HS LINO Stop: 07/26/19 21:59 Last Admin: 06/27/19 21:18 Dose: 300 mg Documented by: Haloperidol (Haldol) 5 mg PO Q4H PRN PRN Reason: psychosis Stop: 07/20/19 17:49 Last Admin: 06/23/19 17:13 Dose: 5 mg Documented by: Haloperidol (Haldol) 2.5 mg PO BID LINO Stop: 07/27/19 20:59 Last Admin: 06/27/19 21:18 Dose: 2.5 mg Documented by: Haloperidol Lactate (Haldol) 10 mg IM Q4H PRN PRN Reason: psychosis Stop: 07/21/19 09:59 Hydroxyzine HCl (Vistaril) 25 mg PO Q4H PRN PRN Reason: Anxiety Stop: 07/20/19 17:46 Hydroxyzine HCl (Vistaril) 50 mg PO HSZ PRN PRN Reason: Insomnia Stop: 07/20/19 17:46 Lorazepam (Ativan) 2 mg PO Q4H PRN PRN Reason: Anxiety Stop: 07/20/19 17:48 Last Admin: 06/22/19 06:47 Dose: 2 mg Documented by: Magnesium Hydroxide (Milk Of Magnesia) 30 ml PO DAILY PRN PRN Reason: Constipation Stop: 07/20/19 17:46 Sertraline HCl (Zoloft) 75 mg PO QAM LINO Stop: 07/21/19 08:59 Last Admin: 06/27/19 07:27 Dose: 75 mg Documented by: Sodium Chloride (Mango Nasal) 1 - 2 sprays NA PRN PRN PRN Reason: Nasal Dryness/Congestion Stop: 07/20/19 17:46 Mental Health & Subst Abuse Tx Therapist Name of Therapist: SUSANNAH Caceres Bonbon Dipper Name of Bonbon Dipper: LOGAN Pena Date of Appointment with Bonbon Dipper: 06/23/19 Time of Appointment with Bonbon Dipper: 9:30am Post Discharge Appointments Primary Care Physician Name Of Family Doctor: DEV[facility] - Dr. Duane Delgado CPT Code CPT Code 88287
[2019-06-28] MEDS: haloperidoL 5 MG TAB PO SCH ×2 (09:29→21:27)
[2019-06-28] MEDS: SERTRALINE HCL 50 MG TABLET PO SCH (09:29)
[2019-06-28] MEDS: cloZAPine 100 MG TAB PO SCH (21:27)
[2019-06-29] MEDS: SERTRALINE HCL 50 MG TABLET PO SCH (08:41)
[2019-06-29] MEDS: haloperidoL 5 MG TAB PO SCH ×3 (08:42→21:18)
--- NOTE | 2019-06-29 10:36 | Psychiatric Progress Note ---
Date of Service June 29, 2019 Impression / Recommendations Tatianna Orosco is a 29-year-old [place] male who lives with roommates in [place], has a history of schizophrenia, depression, alcohol use disorder, and treatment nonadherence, and has had multiple hospitalizations in the past month since he was discharged from the [facility] senior care and moved to independent living in an apartment with several roommates. Both of his hospitalizations this past month have been triggered by erratic, disorganized behavior in the community, including going out in public in the nude, threatening other people, and severely disorganized thinking and speech. The patient's strengths include the fact that he does respond favorably to psychiatric medications. However, and overarching deficit is the fact that he is repeatedly not adherent with psychiatric treatment, including psychiatric medications, and tends to decompensate quickly. These decompensations are associated with dangerous behaviors, both to self and others, that rise to the level of risk of eminent serious physical harm. Pt has been resumed on home dose of sertraline 75mg, and clozapine has been titrated to previous dosing of 300mg qHS. The patient received Haldol Decanoate 25 mg on 06/24/19, 50 mg of Haldol D ecanoate on 06/27. Pt has demonstrated an apparent destabilization in the time since receiving these injections. It is likely that the dosage received will be insufficient to manage his psychosis - as demonstrated by increased demonstration of response to internal stimuli. Medication treatment plan has changed since determining that it is not likely patient will be able to be discharged to a [facility] with supervised medication administration. In anticipation of continued medication non-compliance, as patient's history demonstrates, it would be in the patient's best interest to optimize his CONDE dosing. A 100mg dose of haloperidol decanoate has been ordered and his oral supplementation has been titrated back to 5mg BID for the time being. We will target a maintenance dose of 150mg - with adjustment as indicated based on response/side effects. Pt continues to demonstrate psychotic behavior by responding to internal stimuli and demonstrating poor insight into his condition. He is reportedly disruptive in groups and notes state he was talking to himself for the duration of self- awareness group last evening. Given frequent readmissions and clear evidence that patient is not compliant with medications, it does not seem appropriate for him to be discharged without additional community support. CRR application has been completed, but no available beds at this time. Inpatient psychiatric treatment remains medically necessary as it is not likely the patient could adequate care for self or maintain the safety of himself and others in his current condition, due to worsening psychotic behavior over the last several days. (1) Schizophrenia: 06/21 -re-titrate clozapine to home dose of 300 mg at bedtime. Consider adding Haldol Decanoate for augmentation and concerns for due to nonadherence with oral medications. -Haloperidol as needed has been beneficial, so we will continue, while scheduling 5 mg twice daily. -Lorazepam 2 mg p.o./IM every 4 hours as needed for psychosis/agitation. -Benztropine as needed for EPS. -[facility] and outpatient clinicians at [facility]. -Patient is giving inconsistent reports, but on presentation reported he had not been sleeping, which could explain some of his manic symptoms on presentation, as well as exacerbation of psychotic illness. Continue to assess and treat as necessary. 06/22 -continue medically necessary private room given degree of psychosis, disinhibition, sexually inappropriate behavior, and threats to others. -Continue clozapine titration and weekly CBC with differential. ANC 6.27 on 06/20/2019. Next CBC w/diff ordered for 07/04. -Continue haloperidol 5 mg twice daily, with 10 mg IM as needed. -Contact [facility] for clarification of medication compliance at home, and roommates for clarification of threats he made to them prior to admission. -303 hearing scheduled for tomorrow. 06/23 - 303 commitment granted. - Continue current medications, and recommend Haldol decanoate if current dose if effective. - Meeting with on license of [facility] to discuss treatment plan ([facility] CONDE). - Coordinate care with Dr. Aguilar at [facility] - to call clinical appeals auditor. 06/24 -Haldol appears to be effective and well-tolerated. -Haldol decanoate started today at a dose of 25 mg IM. A 50 mg dose of Haldol decanoate will be given IM in 3 days. -Oral haloperidol will be continued 5 mg twice a day, but will be tapered as clinically indicated, depending upon the patient's response to the above. -Clozapine will be increased to 200 mg at bedtime, and further titrations will be made based on patient's clinical response. 06/25 - Continue current medication regimen - Order is scheduled for 50mg of haldol decanoate 50mg on 06/27; at which time we will reduce oral haloperidol dosing - Clozapine to be increased to 250mg this evening 06/26 - Continue current medication regimen; pt to receive 50mg of Haldol decanoate on 06/27 - Clozapine ordered to be maintained at 300mg qHS - CBC w/diff scheduled for tomorrow 06/27 - Continue clozapine 300mg qHS - continue weekly CBC with differential. ANC 3.54 on 06/27/2019 - Haldol decanoate 50mg was given this morning; oral haloperidol dosage reduced to 2.5mg BID starting this evening, tapering to discontinuation - Continue to explore available housing options that will provide patient with adequate support and supervision to reduce risk of harm to self or others - client portfolio manager to assist with CRR application, though unclear if there is bed availability 06/28 - Continue treatment plan as above 06/29 - Worsening of psychotic behavior was discussed - in light of likely discharge back to his apartment with additional support, history of medication noncompliance remains a large concern - Discussed optimizing patient's CONDE dosage in order to improve current behaviors, better maintain stability, and provide better overall coverage for likely oral medication noncompliance, with primary goal to prevent need for frequent readmissions - An additional dose of haloperidol decanoate 100mg has been ordered for 07/04 - as it is likely his current dosage is insufficient to achieve the goals stated above - Will titrate oral haloperidol back to 5mg BID in the interim - Continue to coordinate aftercare and discharge planning with patient's case management director - Will plan to have patient call his place of employment with social work, as it is not clear he still has a job given behavior prior to admission - Will encourage staff to challenge patient's thought content and attempt to process his rationale for his behavior on the unit (2) Homicidal ideation: 06/21 -the petition from the patient's [facility] states he threatened to harm his roommates. Would recommend they be contacted to clarify the statements made in the housing situation, including whether the patient is even able to return to the apartment. 06/23 - SW unable to contact roommates as do not have contact information, but he did sign a release to contact his landlord. 06/24 -The patient is denying homicidal ideation and denies that he threatened his roommates. However, there is objective evidence that he did, in fact, make threats to cause serious physical harm to others prior to admission. 06/27 - Patient continues to deny HI (3) Depression: 06/21 -continue home dose of sertraline 75 mg daily. Continue to assess and monitor mood his psychosis improves. 06/24 - sertraline will be continued for depression and anxiety. 06/29 - Pt continues to state he is "happy" and a 06/23 on the unit - his affect continues to be noncongruent with reported mood (4) Anxiety: 06/21 -patient reports episodic anxiety in the context of believing he lost his keys and wallet. As needed medications as above, continue sertraline as above. Once he is less psychotic, encourage group attendance and participation, work on healthy coping skills and behavioral techniques for managing anxiety. 06/14 -sertraline is being continued for both anxiety and depression. (5) Alcohol use disorder: 06/21 -patient reports he drank to intoxication on his birthday several days prior to hospitalization. This likely contributed to decompensation. Once he is less psychotic, will engage in further discussion of the risks of substance abuse and recommendations for abstinence. 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 He is on a 303 involuntary commitment as of 06/23/2019. Chief Complaint "I am good. I am trying to participate in groups." Review of Systems Notes Constitutional: denied Cardiovascular: denied Respiratory: denied Gastrointestinal: denied Neurological: denied Psychiatric: denies symptoms other than stated above Total of at least 10 systems reviewed, pertinent positives as above and in HPI. Sleep Information Total Hours of Sleep: 6.75 Sleep Comments: pt appeared to sleep 1.75 hrs during evening shift. pt on q-15 mnute checks Meal Information Percent Meal Consumed - Breakfast: 100 Percent Meal Consumed - Lunch: 100 Percent Meal Consumed - Dinner: 100 Nutrition Comment: pt. asleep Subjective Subjective Patient was seen & assessed and interval progress reviewed with treatment team. Staff report the patient was reportedly inappropriate and disruptive in self- awareness group, and was also excused from community meeting. It was reported that the patient was talking and gesturing to himself during group and had also been observed to be sleeping in some groups as well. When patient is asked about his behavior, he attempts to rationalize his actions with staff. Pt was seen today to assess progress since admission. Pt states he is "good" and reports that he is "trying to participate" in all groups. Pt was asked about how this has been going. He states, "I am getting better. I am trying, but sometimes I cannot speak." Pt was informed of staff's observations during groups and was asked if he could provide a reasoning for talking to himself and his frequent gesturing. Pt provides an explanation about "speech therapy" - which has been offered by the patient during previous admissions as well. He states, "the movement is because I get start shaking and stuttering when I want to say something." Pt reports that he is "learning to control my speech", and that he feels safe and comfortable doing this on our unit, without fear of ridicule. Pt states that he often "thinks of questions, that I then respond to" as part of his "speech therapy." He states he practices saying his name or ordering drinks. Pt denies that these prompts for response are outside of himself and states, "I come up with the questions, then I practice answering." He continues to deny A/V hallucinations. Pt was informed that we are happy he feels comfortable on our unit, and happy his goal is to remain out of the hospital. This provider discussed with the patient that part of being successful outside of the hospital is being honest about his symptoms while he is here. He was informed that staff may be asking about his behavior more frequently, and that we would appreciate him sharing his insight as to these gestures when they occur. Pt was agreeable this. He continues to deny SI/HI and other acute concerns. Physical Exam Psychiatric Orientation: alert, oriented x 3 and cooperative Apperance: appropriately dressed (casually, t-shirt/scrub pants; however, continues to wear the same clothes), appropriately groomed (showers daily, despite re-wearing his clothing) and appeared stated age Eye Contact: good eye contact Motor Behavior: steady gait and station historical tic disorder, unchanged from baseline Speech: normal rate/rhythm/volume of speech historical stutter, unchanged from baseline Affect: + flat affect; + mood not congruent with affect Mood: no depressed mood ("I am happy" and "10/10") and no anxious mood Thought Process: + confabulations (explanation for psychotic behaviors is not clearly reality-based); + thought process not linear or logical Thought Content: + preoccupation (with discharge, returning to work, and staying out of the hospital) and + delusions (explanation of psychotic behavior has likely reached fixed delusional level); no hopelessness Suicidal Thoughts: denies suicidal thoughts and denies suicidal intent Homicidal Thoughts: denies homicidal thoughts Hallucinations: no auditory hallucinations and no visual hallucinations Pt continues to be observed responding to internal stimuli, but consistently denies A/V hallucinations Cognition: attention grossly intact and language grossly intact Insight: + impaired insight Judgement: + impaired judgement Vital Signs (Past 24 Hours) Last Vital Signs Temp 36.7 C 06/29/19 06:53 Pulse 118 H 06/29/19 06:54 Resp 18 06/29/19 06:53 BP 129/81 06/29/19 06:54 Pulse Ox 97 06/20/19 15:01 Results & Data Current Inpatient Medications Current Inpatient Medications: Current Inpatient Medications Acetaminophen (Tylenol) 650 mg PO Q4H PRN PRN Reason: Headache or Minor Fever Stop: 07/20/19 17:46 Last Admin: 06/27/19 11:01 Dose: 650 mg Documented by: Al Hydrox/Mg Hydrox/Simethicone (Maalox) 30 ml PO Q4H PRN PRN Reason: GI Upset Stop: 07/20/19 17:46 Benztropine Mesylate (Cogentin) 1 mg IM Q4H PRN PRN Reason: EPS Stop: 07/21/19 10:01 Benztropine Mesylate (Cogentin) 1 mg PO Q4H PRN PRN Reason: EPS Stop: 07/21/19 10:44 Bismuth Subsalicylate (Kaopectate) 15 ml PO PRN PRN PRN Reason: Loose Stool Stop: 07/20/19 17:46 Clozapine (Clozapine) 300 mg PO HS LINO Stop: 07/26/19 21:59 Last Admin: 06/28/19 21:27 Dose: 300 mg Documented by: Haloperidol (Haldol) 5 mg PO Q4H PRN PRN Reason: psychosis Stop: 07/20/19 17:49 Last Admin: 06/23/19 17:13 Dose: 5 mg Documented by: Haloperidol (Haldol) 5 mg PO BID LINO Stop: 07/29/19 08:59 Last Admin: 06/29/19 09:11 Dose: 2.5 mg Documented by: Haloperidol Decanoate (Haldol Decanoate) 100 mg IM ONE ONE Stop: 07/04/19 08:01 Haloperidol Lactate (Haldol) 10 mg IM Q4H PRN PRN Reason: psychosis Stop: 07/21/19 09:59 Hydroxyzine HCl (Vistaril) 25 mg PO Q4H PRN PRN Reason: Anxiety Stop: 07/20/19 17:46 Hydroxyzine HCl (Vistaril) 50 mg PO HSZ PRN PRN Reason: Insomnia Stop: 07/20/19 17:46 Lorazepam (Ativan) 2 mg PO Q4H PRN PRN Reason: Anxiety Stop: 07/20/19 17:48 Last Admin: 06/22/19 06:47 Dose: 2 mg Documented by: Magnesium Hydroxide (Milk Of Magnesia) 30 ml PO DAILY PRN PRN Reason: Constipation Stop: 07/20/19 17:46 Sertraline HCl (Zoloft) 75 mg PO QAM LINO Stop: 07/21/19 08:59 Last Admin: 06/29/19 08:41 Dose: 75 mg Documented by: Sodium Chloride ([place] Nasal) 1 - 2 sprays NA PRN PRN PRN Reason: Nasal Dryness/Congestion Stop: 07/20/19 17:46 Mental Health & Subst Abuse Tx Psychiatrist Name of Psychiatrist: SUSANNAH Aguilar Psychiatrist's Psychiatric Appointment Comment: [address] [place] [address] Therapist Name of Therapist: SUSANNAH Caceres Therapist's Therapy Appointment Comment: [address] [facility] [place] [address] Garage Manager Name of Garage Manager: LOGAN Pena Phone Number for Garage Manager: [phone] Date of Appointment with Garage Manager: 06/23/19 Time of Appointment with Garage Manager: 9:30 am Post Discharge Appointments Primary Care Physician Name Of Family Doctor: DEVYN Delgado Primary Care Provider Appointment Comment: [address], [place] [address] Specialist Name of Specialist: Deion Dye [facility] Paxton Saldana Phone Number for Specialist: [phone] Specialty Appointment Comment: Will see you in your home Contact Information Discharge Discharge Address: [address] [place] [address], [facility] [address], [place] [address] CPT Code CPT Code 27385
[2019-06-29] MEDS: cloZAPine 100 MG TAB PO SCH (21:18)
[2019-06-30] MEDS: haloperidoL 5 MG TAB PO SCH ×2 (08:24→21:25)
[2019-06-30] MEDS: SERTRALINE HCL 50 MG TABLET PO SCH (08:24)
--- NOTE | 2019-06-30 09:31 | Psychiatric Progress Note ---
Date of Service June 30, 2019 Impression / Recommendations Tatianna Orosco is a 29-year-old [place] male who lives with roommates in [place], has a history of schizophrenia, depression, alcohol use disorder, and treatment nonadherence, and has had multiple hospitalizations in the past month since he was discharged from the [facility] and moved to independent living in an apartment with several roommates. Both of his hospitalizations this past month have been triggered by erratic, disorganized behavior in the community, including going out in public in the nude, threatening other people, and severely disorganized thinking and speech. The patient's strengths include the fact that he does respond favorably to psychiatric medications. However, and overarching deficit is the fact that he is repeatedly not adherent with psychiatric treatment, including psychiatric medications, and tends to decompensate quickly. These decompensations are associated with dangerous behaviors, both to self and others, that rise to the level of risk of eminent serious physical harm. Pt has been resumed on home dose of sertraline 75mg, and clozapine has been titrated to previous dosing of 300mg qHS. The patient received Haldol Decanoate 25 mg on 06/24/19, 50 mg of Haldol D ecanoate on 06/27. Pt has demonstrated an apparent destabilization in the time since receiving these injections. It is likely that the dosage received will be insufficient to manage his psychosis - as demonstrated by increased demonstration of response to internal stimuli. Medication treatment plan has changed since determining that it is not likely patient will be able to be discharged to a [facility] with supervised medication administration. In anticipation of continued medication non-compliance, as patient's history demonstrates, it would be in the patient's best interest to optimize his CONDE dosing. A 100mg dose of haloperidol decanoate has been ordered and his oral supplementation has been titrated back to 5mg BID for the time being. We will target a maintenance dose of 150mg - with adjustment as indicated based on response/side effects. Pt continues to demonstrate psychotic behavior by responding to internal stimuli and demonstrating poor insight into his condition. He is reportedly disruptive in groups and notes state he was talking to himself for the duration of self- awareness group last evening. Given frequent readmissions and clear evidence that patient is not compliant with medications, it does not seem appropriate for him to be discharged without additional community support. CRR application has been completed, but no available beds at this time. Inpatient psychiatric treatment remains medically necessary as it is not likely the patient could adequate care for self or maintain the safety of himself and others in his current condition, due to worsening psychotic behavior over the last several days. (1) Schizophrenia: 06/21 -re-titrate clozapine to home dose of 300 mg at bedtime. Consider adding Haldol Decanoate for augmentation and concerns for due to nonadherence with oral medications. -Haloperidol as needed has been beneficial, so we will continue, while scheduling 5 mg twice daily. -Lorazepam 2 mg p.o./IM every 4 hours as needed for psychosis/agitation. -Benztropine as needed for EPS. -[facility], and outpatient clinicians at [facility]. -Patient is giving inconsistent reports, but on presentation reported he had not been sleeping, which could explain some of his manic symptoms on presentation, as well as exacerbation of psychotic illness. Continue to assess and treat as necessary. 06/22 -continue medically necessary private room given degree of psychosis, disinhibition, sexually inappropriate behavior, and threats to others. -Continue clozapine titration and weekly CBC with differential. ANC 6.27 on 06/20/2019. Next CBC w/diff ordered for 07/04. -Continue haloperidol 5 mg twice daily, with 10 mg IM as needed. -Contact [facility] for clarification of medication compliance at home, and roommates for clarification of threats he made to them prior to admission. -303 hearing scheduled for tomorrow. 06/23 - 303 commitment granted. - Continue current medications, and recommend Haldol decanoate if current dose if effective. - Meeting with [facility] to discuss treatment plan ([facility]ESH[facility] CONDE). - Coordinate care with Dr. Aguilar at [facility] - to call crisis clinician. 06/24 -Haldol appears to be effective and well-tolerated. -Haldol decanoate started today at a dose of 25 mg IM. A 50 mg dose of Haldol decanoate will be given IM in 3 days. -Oral haloperidol will be continued 5 mg twice a day, but will be tapered as clinically indicated, depending upon the patient's response to the above. -Clozapine will be increased to 200 mg at bedtime, and further titrations will be made based on patient's clinical response. 06/25 - Continue current medication regimen - Order is scheduled for 50mg of haldol decanoate 50mg on 06/27; at which time we will reduce oral haloperidol dosing - Clozapine to be increased to 250mg this evening 06/26 - Continue current medication regimen; pt to receive 50mg of Haldol decanoate on 06/27 - Clozapine ordered to be maintained at 300mg qHS - CBC w/diff scheduled for tomorrow 06/27 - Continue clozapine 300mg qHS - continue weekly CBC with differential. ANC 3.54 on 06/27/2019 - Haldol decanoate 50mg was given this morning; oral haloperidol dosage reduced to 2.5mg BID starting this evening, tapering to discontinuation - Continue to explore available housing options that will provide patient with adequate support and supervision to reduce risk of harm to self or others - integration project manager to assist with CRR application, though unclear if there is bed availability 06/28 - Continue treatment plan as above 06/29 - Worsening of psychotic behavior was discussed - in light of likely discharge back to his apartment with additional support, history of medication noncompliance remains a large concern - Discussed optimizing patient's CONDE dosage in order to improve current behaviors, better maintain stability, and provide better overall coverage for likely oral medication noncompliance, with primary goal to prevent need for frequent readmissions - An additional dose of haloperidol decanoate 100mg has been ordered for 07/04 - as it is likely his current dosage is insufficient to achieve the goals stated above - Will titrate oral haloperidol back to 5mg BID in the interim - Continue to coordinate aftercare and discharge planning with patient's gearcase assembler - Will plan to have patient call his place of employment with social work, as it is not clear he still has a job given behavior prior to admission - Will encourage staff to challenge patient's thought content and attempt to process his rationale for his behavior on the unit 06/30 - Continue treatment plan as outlined above - 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 Would recommend they be contacted to clarify the statements made in the housing situation, including whether the patient is even able to return to the apartment. 06/23 - SW unable to contact roommates as do not have contact information, but he did sign a release to contact his landlord. 06/24 -The patient is denying homicidal ideation and denies that he threatened his roommates. However, there is objective evidence that he did, in fact, make threats to cause serious physical harm to others prior to admission. 06/27 - Patient continues to deny HI (3) Depression: 06/21 -continue home dose of sertraline 75 mg daily. Continue to assess and monitor mood his psychosis improves. 06/24 - sertraline will be continued for depression and anxiety. 06/29 - Pt continues to state he is "happy" and a 06/23 on the unit - his affect continues to be noncongruent with reported mood (4) Anxiety: 06/21 -patient reports episodic anxiety in the context of believing he lost his keys and wallet. As needed medications as above, continue sertraline as above. Once he is less psychotic, encourage group attendance and participation, work on healthy coping skills and behavioral techniques for managing anxiety. 06/14 -sertraline is being continued for both anxiety and depression. (5) Alcohol use disorder: 06/21 -patient reports he drank to intoxication on his birthday several days prior to hospitalization. This likely contributed to decompensation. Once he is less psychotic, will engage in further discussion of the risks of substance abuse and recommendations for abstinence. 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 He is on a 303 involuntary commitment as of 06/23/2019. Chief Complaint "Yes, yesterday I called [facility]. They told me I just need to give them a discharge date." Review of Systems Notes Constitutional: denied Cardiovascular: denied Respiratory: denied Gastrointestinal: denied Neurological: denied Psychiatric: denies symptoms other than stated above Total of at least 10 systems reviewed, pertinent positives as above and in HPI. Sleep Information Total Hours of Sleep: 8.25 Sleep Comments: initially slept on his bedroom floor upon bedding. he later moved back into his own bed. he was awake before am vital sign checks-ate cereals with milk. Meal Information Percent Meal Consumed - Breakfast: 100 Percent Meal Consumed - Lunch: 100 Percent Meal Consumed - Dinner: 100 Nutrition Comment: pt. asleep Subjective Subjective Patient was seen & assessed and interval progress reviewed with nursing and social work. Staff report the patient continues to appear to be responding to internal stimuli during groups - reported to be acting "oddly" compared to baseline. Pt was seen today to assess progress since admission. Pt states that he is doing well today, and shares with this provider what he believes his job situation to be currently. He reports having called his current place of employment and being reassured he still has a position. At this point, he believes his position at [employer], which he states he completed training for, has likely been given to another applicant. Pt is agreeable to making some of these phone calls with social work, as it was explained that his job has been a large contributing factor to destabilization at times, and in order to ensure ongoing progress outside of the hospital, we would need to be clear about his job standing. Pt continues to deny SI and A/V hallucinations. He denies other needs or concerns today. Physical Exam Psychiatric Orientation: alert, oriented x 3 and cooperative Apperance: appropriately dressed, appropriately groomed and appeared stated age Eye Contact: good eye contact Motor Behavior: steady gait and station historical tic disorder, unchanged from baseline Speech: normal rate/rhythm/volume of speech historical stutter, unchanged from baseline Affect: + flat affect; + mood not congruent with affect Mood: no depressed mood and no anxious mood "Very good" Thought Process: goal directed thought process and linear/logical thought process (though unclear if statements he report are true at this time) Thought process is more organized, though it is not always clear if his statements are true. Thought Content: + preoccupation (with his job status) and + cognitive distortions; not paranoid and no hopelessness Suicidal Thoughts: denies suicidal thoughts Homicidal Thoughts: denies homicidal thoughts Hallucinations: no auditory hallucinations and no visual hallucinations Cognition: attention grossly intact and language grossly intact Insight: + limited insight Judgement: + limited judgement Vital Signs (Past 24 Hours) Last Vital Signs Temp 36.6 C 06/30/19 06:00 Pulse 112 H 06/30/19 06:55 Resp 17 06/30/19 06:00 BP 136/90 06/30/19 06:55 Pulse Ox 97 06/20/19 15:01 Results & Data Current Inpatient Medications Current Inpatient Medications: Current Inpatient Medications Acetaminophen (Tylenol) 650 mg PO Q4H PRN PRN Reason: Headache or Minor Fever Stop: 07/20/19 17:46 Last Admin: 06/27/19 11:01 Dose: 650 mg Documented by: Al Hydrox/Mg Hydrox/Simethicone (Maalox) 30 ml PO Q4H PRN PRN Reason: GI Upset Stop: 07/20/19 17:46 Benztropine Mesylate (Cogentin) 1 mg IM Q4H PRN PRN Reason: EPS Stop: 07/21/19 10:01 Benztropine Mesylate (Cogentin) 1 mg PO Q4H PRN PRN Reason: EPS Stop: 07/21/19 10:44 Bismuth Subsalicylate (Kaopectate) 15 ml PO PRN PRN PRN Reason: Loose Stool Stop: 07/20/19 17:46 Clozapine (Clozapine) 300 mg PO HS LINO Stop: 07/26/19 21:59 Last Admin: 06/29/19 21:18 Dose: 300 mg Documented by: Haloperidol (Haldol) 5 mg PO Q4H PRN PRN Reason: psychosis Stop: 07/20/19 17:49 Last Admin: 06/23/19 17:13 Dose: 5 mg Documented by: Haloperidol (Haldol) 5 mg PO BID LINO Stop: 07/29/19 08:59 Last Admin: 06/30/19 08:24 Dose: 5 mg Documented by: Haloperidol Decanoate (Haldol Decanoate) 100 mg IM ONE ONE Stop: 07/04/19 08:01 Haloperidol Lactate (Haldol) 10 mg IM Q4H PRN PRN Reason: psychosis Stop: 07/21/19 09:59 Hydroxyzine HCl (Vistaril) 25 mg PO Q4H PRN PRN Reason: Anxiety Stop: 07/20/19 17:46 Hydroxyzine HCl (Vistaril) 50 mg PO HSZ PRN PRN Reason: Insomnia Stop: 07/20/19 17:46 Lorazepam (Ativan) 2 mg PO Q4H PRN PRN Reason: Anxiety Stop: 07/20/19 17:48 Last Admin: 06/22/19 06:47 Dose: 2 mg Documented by: Magnesium Hydroxide (Milk Of Magnesia) 30 ml PO DAILY PRN PRN Reason: Constipation Stop: 07/20/19 17:46 Sertraline HCl (Zoloft) 75 mg PO QAM LINO Stop: 07/21/19 08:59 Last Admin: 06/30/19 08:24 Dose: 75 mg Documented by: Sodium Chloride ([place] Nasal) 1 - 2 sprays NA PRN PRN PRN Reason: Nasal Dryness/Congestion Stop: 07/20/19 17:46 Mental Health & Subst Abuse Tx Psychiatrist Name of Psychiatrist: MADISON Paxton Aguilar Psychiatrist's Psychiatric Appointment Comment: [address] [place] [id number] Therapist Name of Therapist: MADISON Paxton Caceres Therapist's Therapy Appointment Comment: [address] [place] [id number] Mechanical Inspector Name of Mechanical Inspector: LOGAN Pena Phone Number for Mechanical Inspector: [phone] Date of Appointment with Mechanical Inspector: 06/23/19 Time of Appointment with Mechanical Inspector: 9:30 am Post Discharge Appointments Primary Care Physician Name Of Family Doctor: DEVYN Delgado Primary Care Provider Appointment Comment: [address] [place] [address] Specialist Name of Specialist: Deion Dye [facility] Paxton Saldana Phone Number for Specialist: [phone] Specialty Appointment Comment: Will see you in your home Contact Information Discharge Discharge Address: [address] [place] [address], [facility], [place] [address] CPT Code CPT Code 01948
[2019-06-30] MEDS: cloZAPine 100 MG TAB PO SCH (21:25)
[2019-07-01] MEDS: haloperidoL 5 MG TAB PO SCH ×2 (09:42→21:12)
[2019-07-01] MEDS: SERTRALINE HCL 50 MG TABLET PO SCH (09:42)
--- NOTE | 2019-07-01 16:46 | Psychiatric Progress Note ---
Date of Service July 01, 2019 Impression / Recommendations Tatianna Orosco is a 29-year-old [place]ese male who lives with roommates in [place], has a history of schizophrenia, depression, alcohol use disorder, and treatment nonadherence, and has had multiple hospitalizations in the past month since he was discharged from the [facility] skilled nursing and moved to independent living in an apartment with several roommates. Both of his hospitalizations this past month have been triggered by erratic, disorganized behavior in the community, including going out in public in the nude, threatening other people, and severely disorganized thinking and speech. The patient's strengths include the fact that he does respond favorably to psychiatric medications. However, and overarching deficit is the fact that he is repeatedly not adherent with psychiatric treatment, including psychiatric medications, and tends to decompensate quickly. These decompensations are associated with dangerous behaviors, both to self and others, that rise to the level of risk of eminent serious physical harm. Pt has been resumed on home dose of sertraline 75mg, and clozapine has been titrated to previous dosing of 300mg qHS. The patient received Haldol Decanoate 25 mg on 06/24/19, 50 mg of Haldol D ecanoate on 06/27. Pt has demonstrated an apparent destabilization in the time since receiving these injections. It is likely that the dosage received will be insufficient to manage his psychosis - as demonstrated by increased demonstration of response to internal stimuli. Medication treatment plan has changed since determining that it is not likely patient will be able to be discharged to a [facility] with supervised medication administration. In anticipation of continued medication non-compliance, as patient's history demonstrates, it would be in the patient's best interest to optimize his CONDE dosing. A 100mg dose of haloperidol decanoate has been ordered and his oral supplementation has been titrated back to 5mg BID for the time being. We will target a maintenance dose of 150mg - with adjustment as indicated based on response/side effects. Currently, the patient's thought content is devoid of any psychotic features, he reports that he is not experiencing any perceptual disturbances, and our observations are that he does not appear to be responding to internal stimuli. His thinking and behavior is currently well organized, and is able to participate appropriately in group activities as well as an individual encounters. Our emphasis at this point is on aftercare planning. Given the patient's history of recurrent exacerbations of his psychiatric illness, born of his tendency to become nonadherent with treatment outside of the hospital, he will need additional community services in order to be safe and free from eminent harm. Currently, we will be recommending outpatient commitment, and we will be continuing Depo injectable antipsychotic medications. (1) Schizophrenia: 06/21 -re-titrate clozapine to home dose of 300 mg at bedtime. Consider adding Haldol Decanoate for augmentation and concerns for due to nonadherence with oral medications. -Haloperidol as needed has been beneficial, so we will continue, while schedu ling 5 mg twice daily. -Lorazepam 2 mg p.o./IM every 4 hours as needed for psychosis/agitation. -Benztropine as needed for EPS. -[facility] and outpatient clinicians at [facility]. -Patient is giving inconsistent reports, but on presentation reported he had not been sleeping, which could explain some of his manic symptoms on presentation, as well as exacerbation of psychotic illness. Continue to assess and treat as necessary. 06/22 -continue medically necessary private room given degree of psychosis, disinhibition, sexually inappropriate behavior, and threats to others. -Continue clozapine titration and weekly CBC with differential. ANC 6.27 on 06/20/2019. Next CBC w/diff ordered for 07/04. -Continue haloperidol 5 mg twice daily, with 10 mg IM as needed. -Contact [facility] for clarification of medication compliance at home, and roommates for clarification of threats he made to them prior to admission. -303 hearing scheduled for tomorrow. 06/23 - 303 commitment granted. - Continue current medications, and recommend Haldol decanoate if current dose if effective. - Meeting with [facility] to discuss treatment plan ([facility] CONDE). - Coordinate care with Dr. Aguilar at [facility] - to call clinical team manager. 06/24 -Haldol appears to be effective and well-tolerated. -Haldol decanoate started today at a dose of 25 mg IM. A 50 mg dose of Haldol decanoate will be given IM in 3 days. -Oral haloperidol will be continued 5 mg twice a day, but will be tapered as clinically indicated, depending upon the patient's response to the above. -Clozapine will be increased to 200 mg at bedtime, and further titrations will be made based on patient's clinical response. 06/25 - Continue current medication regimen - Order is scheduled for 50mg of haldol decanoate 50mg on 06/27; at which time we will reduce oral haloperidol dosing - Clozapine to be increased to 250mg this evening 06/26 - Continue current medication regimen; pt to receive 50mg of Haldol decanoate on 06/27 - Clozapine ordered to be maintained at 300mg qHS - CBC w/diff scheduled for tomorrow 06/27 - Continue clozapine 300mg qHS - continue weekly CBC with differential. ANC 3.54 on 06/27/2019 - Haldol decanoate 50mg was given this morning; oral haloperidol dosage reduced to 2.5mg BID starting this evening, tapering to discontinuation - Continue to explore available housing options that will provide patient with adequate support and supervision to reduce risk of harm to self or others - cattle manager to assist with CRR application, though unclear if there is bed availability 06/28 - Continue treatment plan as above 06/29 - Worsening of psychotic behavior was discussed - in light of likely discharge back to his apartment with additional support, history of medication noncompliance remains a large concern - Discussed optimizing patient's CONDE dosage in order to improve current behaviors, better maintain stability, and provide better overall coverage for likely oral medication noncompliance, with primary goal to prevent need for frequent readmissions - An additional dose of haloperidol decanoate 100mg has been ordered for 07/04 - as it is likely his current dosage is insufficient to achieve the goals stated above - Will titrate oral haloperidol back to 5mg BID in the interim - Continue to coordinate aftercare and discharge planning with patient's vocational case manager - Will plan to have patient call his place of employment with social work, as it is not clear he still has a job given behavior prior to admission - Will encourage staff to challenge patient's thought content and attempt to process his rationale for his behavior on the unit 06/30 - Continue treatment plan as outlined above - 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 -Our recommendation is that he limit his work day in the community to no more than 8-hour days and that he work no more than 32 hours a week. A letter to this effect has been written and signed by his physician. -The current plan is to convert the patient's involuntary commitment to ou tpatient commitment next week. -The patient met with his vocational case manager today and we have been told that there appears to be a vacancy in a residential rehabilitation program that we agree will be suitable to his clinical and safety needs. This option is currently being pursued. -An additional dose of Haldol decanoate 100 mg IM is ordered for 07/04/2019. His dose of oral haloperidol has been tapered and it is anticipated that it will be further tapered and possibly discontinued subsequent to his next dose of Haldol Decanoate. (2) Homicidal ideation: 06/21 -the petition from the patient's [facility] states he threatened to harm his roommates. Would recommend they be contacted to clarify the statements made in the housing situation, including whether the patient is even able to return to the apartment. 06/23 - SW unable to contact roommates as do not have contact information, but he did sign a release to contact his landlord. 06/24 -The patient is denying homicidal ideation and denies that he threatened his roommates. However, there is objective evidence that he did, in fact, make threats to cause serious physical harm to others prior to admission. 06/27 - Patient continues to deny HI 07/01 -This problem is considered resolved. (3) Depression: 06/21 -continue home dose of sertraline 75 mg daily. Continue to assess and monitor mood his psychosis improves. 06/24 - sertraline will be continued for depression and anxiety. 06/29 - Pt continues to state he is "happy" and a 06/23 on the unit - his affect continues to be noncongruent with reported mood 07/01 -The patient reports that his mood is good and he is not feeling depressed. His affect is euthymic. (4) Anxiety: 06/21 -patient reports episodic anxiety in the context of believing he lost his keys and wallet. As needed medications as above, continue sertraline as above. Once he is less psychotic, encourage group attendance and participation, work on healthy coping skills and behavioral techniques for managing anxiety. 06/14 -sertraline is being continued for both anxiety and depression. 07/01 -The patient continues to report that he is not feeling anxious, apart from what he considers to be "normal" anxiety regarding uncertainty regarding his community placement. (5) Alcohol use disorder: 06/21 -patient reports he drank to intoxication on his birthday several days prior to hospitalization. This likely contributed to decompensation. Once he is less psychotic, will engage in further discussion of the risks of substance abuse and recommendations for abstinence. 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 He is on a 303 involuntary commitment as of 06/23/2019. Chief Complaint "I met with my vocational case manager, Neda, and there are a couple things that I need your help with this part of my discharge planning. Yes, I am doing much better now thank you.". Review of Systems Sleep Information Total Hours of Sleep: 8 Sleep Comments: initially slept on his bedroom floor upon bedding. he later moved back into his own bed. he was awake before am vital sign checks-ate cereals with milk. Meal Information Percent Meal Consumed - Breakfast: 100 Percent Meal Consumed - Lunch: 100 Percent Meal Consumed - Dinner: 100 Nutrition Comment: pt. asleep Subjective Subjective Patient was seen & assessed and interval progress reviewed with treatment team. I met with patient individually in order to assess his current mental status, evaluate his response to treatment, coordinate any necessary changes in the patient's treatment regimen with the patient, and address issues, concerns and questions that may arise. The patient focused on various elements of his aftercare plan. He clearly tells me that he is being referred for community residential rehabilitation placement, but that there has also been discussion of his possibly returning to his previous living arrangements with his roommates. Of these, the patient spontaneously tells me that he realizes that the best option for him really is to go to the community residential program in part to make certain that he remains in treatment and adheres with all treatment emily mmendations. The patient also spontaneously tells me that he realizes that the placement in the community program is not certain and that, in any event, it will not necessarily occur "right away." Further, the patient notes that he feels that his current medication regimen is working well, and he has noted no side effects from any of his medications. When asked what he meant when he said that he feels the medication is working well, he says "I have quieted down. Calm. I am thinking much more clearly." Physical Exam Psychiatric Orientation: alert and oriented x 3 Apperance: appropriately dressed and appropriately groomed Eye Contact: good eye contact Motor Behavior: steady gait and station Speech: normal rate/rhythm/volume of speech The patient has a stutter, but is able to recover. His speech is spontaneous, and delivered at a normal rate and volume. Affect: euthymic affect "I think I am in a pretty good mood." Thought Process: goal directed thought process, linear/logical thought process and clear/coherent thought process Thought Content: reality based without delusions Suicidal Thoughts: denies suicidal thoughts Homicidal Thoughts: denies homicidal thoughts Hallucinations: no auditory hallucinations Although the patient generally denies that he is experiencing perceptual disturbances, it is also noted that he does not appear to be responding to internal stimuli per staff observation and report. Cognition: recent memory grossly intact, remote memory grossly intact, attention grossly intact and language grossly intact Estimated Intelligence: + above average estimated intelligence Insight: good insight Judgement: good judgement Vital Signs (Past 24 Hours) Last Vital Signs Temp 36.8 C 07/01/19 06:59 Pulse 101 H 07/01/19 06:59 Resp 14 07/01/19 06:59 BP 152/96 H 07/01/19 06:59 Pulse Ox 97 06/20/19 15:01 Results & Data Current Inpatient Medications Current Inpatient Medications: Current Inpatient Medications Acetaminophen (Tylenol) 650 mg PO Q4H PRN PRN Reason: Headache or Minor Fever Stop: 07/20/19 17:46 Last Admin: 06/27/19 11:01 Dose: 650 mg Documented by: Al Hydrox/Mg Hydrox/Simethicone (Maalox) 30 ml PO Q4H PRN PRN Reason: GI Upset Stop: 07/20/19 17:46 Benztropine Mesylate (Cogentin) 1 mg IM Q4H PRN PRN Reason: EPS Stop: 07/21/19 10:01 Benztropine Mesylate (Cogentin) 1 mg PO Q4H PRN PRN Reason: EPS Stop: 07/21/19 10:44 Bismuth Subsalicylate (Kaopectate) 15 ml PO PRN PRN PRN Reason: Loose Stool Stop: 07/20/19 17:46 Clozapine (Clozapine) 300 mg PO HS LINO Stop: 07/26/19 21:59 Last Admin: 06/30/19 21:25 Dose: 300 mg Documented by: Haloperidol (Haldol) 5 mg PO Q4H PRN PRN Reason: psychosis Stop: 07/20/19 17:49 Last Admin: 06/23/19 17:13 Dose: 5 mg Documented by: Haloperidol (Haldol) 5 mg PO BID LINO Stop: 07/29/19 08:59 Last Admin: 07/01/19 09:42 Dose: 5 mg Documented by: Haloperidol Decanoate (Haldol Decanoate) 100 mg IM ONE ONE Stop: 07/04/19 08:01 Haloperidol Lactate (Haldol) 10 mg IM Q4H PRN PRN Reason: psychosis Stop: 07/21/19 09:59 Hydroxyzine HCl (Vistaril) 25 mg PO Q4H PRN PRN Reason: Anxiety Stop: 07/20/19 17:46 Hydroxyzine HCl (Vistaril) 50 mg PO HSZ PRN PRN Reason: Insomnia Stop: 07/20/19 17:46 Lorazepam (Ativan) 2 mg PO Q4H PRN PRN Reason: Anxiety Stop: 07/20/19 17:48 Last Admin: 06/22/19 06:47 Dose: 2 mg Documented by: Magnesium Hydroxide (Milk Of Magnesia) 30 ml PO DAILY PRN PRN Reason: Constipation Stop: 07/20/19 17:46 Sertraline HCl (Zoloft) 75 mg PO QAM LINO Stop: 07/21/19 08:59 Last Admin: 07/01/19 09:42 Dose: 75 mg Documented by: Sodium Chloride (Newberry Nasal) 1 - 2 sprays NA PRN PRN PRN Reason: Nasal Dryness/Congestion Stop: 07/20/19 17:46 Mental Health & Subst Abuse Tx Psychiatrist Name of Psychiatrist: [facility] Paxton Aguilar Psychiatrist's Psychiatric Appointment Comment: [address] [facility] [place] [address] Therapist Name of Therapist: [facility] Paxton Caceres Therapist's Therapy Appointment Comment: [address] [facility] [place] [address] Strategic Advisor Name of Strategic Advisor: LOGAN Pena Phone Number for Strategic Advisor: [phone] Date of Appointment with Strategic Advisor: 06/23/19 Time of Appointment with Strategic Advisor: 9:30 am Post Discharge Appointments Primary Care Physician Name Of Family Doctor: DEVYN Delgado Primary Care Provider Appointment Comment: [address], [place] [address] Specialist Name of Specialist: Deion Jackson Medication Management Paxton Saldana Phone Number for Specialist: [phone] Specialty Appointment Comment: Will see you in your home Contact Information Discharge Discharge Address: [address] [place] [address], [facility], [place] [address] CPT Code CPT Code 69788
[2019-07-01] MEDS: cloZAPine 100 MG TAB PO SCH (21:11)
[2019-07-02] MEDS: SERTRALINE HCL 50 MG TABLET PO SCH (08:30)
[2019-07-02] MEDS: haloperidoL 5 MG TAB PO SCH ×2 (08:30→21:17)
--- NOTE | 2019-07-02 13:34 | Psychiatric Progress Note ---
Date of Service July 02, 2019 Impression / Recommendations Tatianna Orosco is a 29-year-old [place] male who lives with roommates in [place], has a history of schizophrenia, depression, alcohol use disorder, and treatment nonadherence, and has had multiple hospitalizations in the past month since [facility] and moved to independent living in an apartment with several roommates. Both of his hospitalizations this past month have been triggered by erratic, disorganized behavior in the community, including going out in public in the nude, threatening other people, and severely disorganized thinking and speech. The patient's strengths include the fact that he does respond favorably to psychiatric medications. However, and overarching deficit is the fact that he is repeatedly not adherent with psychiatric treatment, including psychiatric medications, and tends to decompensate quickly. These decompensations are associated with dangerous behaviors, both to self and others, that rise to the level of risk of eminent serious physical harm. Pt has been resumed on home dose of sertraline 75mg, and clozapine has been titrated to previous dosing of 300mg qHS. The patient received Haldol Decanoate 25 mg on 06/24/19, 50 mg of Haldol D ecanoate on 06/27. Pt has demonstrated an apparent destabilization in the time since receiving these injections. It is likely that the dosage received will be insufficient to manage his psychosis - as demonstrated by increased demonstration of response to internal stimuli. Medication treatment plan has changed since determining that it is not likely patient will be able to be discharged to a [facility] with supervised medication administration. In anticipation of continued medication non-compliance, as patient's history demonstrates, it would be in the patient's best interest to optimize his CONDE dosing. A 100mg dose of haloperidol decanoate has been ordered and his oral supplementation has been titrated back to 5mg BID for the time being. We will target a maintenance dose of 150mg - with adjustment as indicated based on response/side effects. Per Dr Shen 06/1819: Currently, the patient's thought content is devoid of any psychotic features, he reports that he is not experiencing any perceptual disturbances, and our observations are that he does not appear to be responding to internal stimuli. His thinking and behavior is currently well organized, and is able to participate appropriately in group activities as well as an individual encounters. Our emphasis at this point is on aftercare planning. Given the patient's history of recurrent exacerbations of his psychiatric illn ess, born of his tendency to become nonadherent with treatment outside of the hospital, he will need additional community services in order to be safe and free from eminent harm. Currently, we will be recommending outpatient commitment, and we will be continuing Depo injectable antipsychotic medications. Concur with Dr Shen's statement as above based on my interaction with patient today and knowledge of his history of noncompliance and decompensation. (1) Schizophrenia: 06/21 -re-titrate clozapine to home dose of 300 mg at bedtime. Consider adding Haldol Decanoate for augmentation and concerns for due to nonadherence with oral medications. -Haloperidol as needed has been beneficial, so we will continue, while scheduling 5 mg twice daily. -Lorazepam 2 mg p.o./IM every 4 hours as needed for psychosis/agitation. -Benztropine as needed for EPS. -Coordinate care with blended skilled nursing case manager, and outpatient clinicians at [facility]. -Patient is giving inconsistent reports, but on presentation reported he had not been sleeping, which could explain some of his manic symptoms on presentation, as well as exacerbation of psychotic illness. Continue to assess and treat as necessary. 06/22 -continue medically necessary private room given degree of psychosis, disinhibition, sexually inappropriate behavior, and threats to others. -Continue clozapine titration and weekly CBC with differential. ANC 6.27 on 06/20/2019. Next CBC w/diff ordered for 07/04. -Continue haloperidol 5 mg twice daily, with 10 mg IM as needed. -Contact [facility] for clarification of medication compliance at home, and roommates for clarification of threats he made to them prior to admission. -303 hearing scheduled for tomorrow. 06/23 - 303 commitment granted. - Continue current medications, and recommend Haldol decanoate if current dose if effective. - Meeting with [facility] to discuss treatment plan (AMAYA, KESHIA). - Coordinate care with Dr. Aguilar at [facility] - to call clinical nurse specialist. 06/24 -Haldol appears to be effective and well-tolerated. -Haldol decanoate started today at a dose of 25 mg IM. A 50 mg dose of Haldol decanoate will be given IM in 3 days. -Oral haloperidol will be continued 5 mg twice a day, but will be tapered as clinically indicated, depending upon the patient's response to the above. -Clozapine will be increased to 200 mg at bedtime, and further titrations will be made based on patient's clinical response. 06/25 - Continue current medication regimen - Order is scheduled for 50mg of haldol decanoate 50mg on 06/27; at which time we will reduce oral haloperidol dosing - Clozapine to be increased to 250mg this evening 06/26 - Continue current medication regimen; pt to receive 50mg of Haldol decanoate on 06/27 - Clozapine ordered to be maintained at 300mg qHS - CBC w/diff scheduled for tomorrow 06/27 - Continue clozapine 300mg qHS - continue weekly CBC with differential. ANC 3.54 on 06/27/2019 - Haldol decanoate 50mg was given this morning; oral haloperidol dosage reduced to 2.5mg BID starting this evening, tapering to discontinuation - Continue to explore available housing options that will provide patient with adequate support and supervision to reduce risk of harm to self or others - event operations manager to assist with [facility] application, though unclear if there is bed availability 06/28 - Continue treatment plan as above 06/29 - Worsening of psychotic behavior was discussed - in light of likely discharge back to his apartment with additional support, history of medication noncompliance remains a large concern - Discussed optimizing patient's CONDE dosage in order to improve current behaviors, better maintain stability, and provide better overall coverage for likely oral medication noncompliance, with primary goal to prevent need for frequent readmissions - An additional dose of haloperidol decanoate 100mg has been ordered for 07/04 - as it is likely his current dosage is insufficient to achieve the goals stated above - Will titrate oral haloperidol back to 5mg BID in the interim - Continue to coordinate aftercare and discharge planning with patient's skilled nursing case manager - Will plan to have patient call his place of employment with social work, as it is not clear he still has a job given behavior prior to admission - Will encourage staff to challenge patient's thought content and attempt to process his rationale for his behavior on the unit 06/30 - Continue treatment plan as outlined above - 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 -Our recommendation is that he limit his work day in the community to no more than 8-hour days and that he work no more than 32 hours a week. A letter to this effect has been written and signed by his physician. -The current plan is to convert the patient's involuntary commitment to outpatient commitment next week. -The patient met with his skilled nursing case manager today and we have been told that there appears to be a vacancy in a residential rehabilitation program that we agree will be suitable to his clinical and safety needs. This option is currently being pursued. -An additional dose of Haldol decanoate 100 mg IM is ordered for 07/04/2019. His dose of oral haloperidol has been tapered and it is anticipated that it will be further tapered and possibly discontinued subsequent to his next dose of Haldol Decanoate. 07/02 - no change in plan, see 07/01/19 (2) Homicidal ideation: 06/21 -the petition from the patient's [facility] states he threatened to harm his roommates. Would recommend they be contacted to clarify the statements made in the housing situation, including whether the patient is even able to return to the apartment. 06/23 - SW unable to contact roommates as do not have contact information, but he did sign a release to contact his landlord. 06/24 -The patient is denying homicidal ideation and denies that he threatened his roommates. However, there is objective evidence that he did, in fact, make threats to cause serious physical harm to others prior to admission. 06/27 - Patient continues to deny HI 07/01 -This problem is considered resolved. (3) Depression: 06/21 -continue home dose of sertraline 75 mg daily. Continue to assess and monitor mood his psychosis improves. 06/24 - sertraline will be continued for depression and anxiety. 06/29 - Pt continues to state he is "happy" and a 06/23 on the unit - his affect continues to be noncongruent with reported mood 07/01 and 07/02 -The patient reports that his mood is good and he is not feeling depressed. His affect is euthymic. (4) Anxiety: 06/21 -patient reports episodic anxiety in the context of believing he lost his keys and wallet. As needed medications as above, continue sertraline as above. Once he is less psychotic, encourage group attendance and participation, work on healthy coping skills and behavioral techniques for managing anxiety. 06/14 -sertraline is being continued for both anxiety and depression. 07/01 and 07/02 -The patient continues to report that he is not feeling anxious, apart from what he considers to be "normal" anxiety regarding uncertainty regarding his community placement. (5) Alcohol use disorder: 06/21 -patient reports he drank to intoxication on his birthday several days prior to hospitalization. This likely contributed to decompensation. Once he is less psychotic, will engage in further discussion of the risks of substance abuse and recommendations for abstinence. 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 He is on a 303 involuntary commitment as of 06/23/2019. Chief Complaint "I'm good". Review of Systems Sleep Information Total Hours of Sleep: 7.5 Sleep Comments: awake around 0600-out to the kitchen for a drink from the fridge Meal Information Percent Meal Consumed - Breakfast: 100 Percent Meal Consumed - Lunch: 100 Percent Meal Consumed - Dinner: 100 Nutrition Comment: pt. asleep Subjective Subjective Patient was seen & assessed and interval progress reviewed with treatment team Anne remains on [facility], he is not always engaged in the milieu but is not acting out or seeming to be intolerant to the interactions he does have [facility] patient he reports he is "good" falling and staying asleep, denies low mood or anxiety, energy is "really high..." meaning "good" and he denies side effects from his medications. He denies overt AVH, or IOR or paranoia and like all the other questions provider asks he is quick to answer. He denies SI, and states he feels "good" again. He is aware of the plan for haldol shot on Thursday and tapering off clozaril. Discussed his high HR and noted it could be from clozaril and will need to monitor as he tapers off clozaril. ROS: he denies EPS< dystonia, or akathisia. He denies orthostasis sx. He denies feeling his high HR, no CP, no SOB, no OROURKE. He denies GI concerns. Physical Exam Mental Examination Appearance: Well Groomed Eye Contact: Maintains Eye Contact Psychiatric Orientation: alert and oriented to place dressed in scrub pants and casual men's pullover shirt with collar askew but appears clean Eye Contact: good eye contact Motor Behavior: steady gait and station and no abnormal motor movements; no psychomotor agitation, n EPS and n akathisia regular rate, rythm, even tone limited emotional inflection, quick to answer qu estions with one to two word answers does not expound sudued affect, not labile, low intensity "okay" and appears calm he offers little spontaneous thought and like all psychiatric symptoms he is quick to also deny s/sx of psychosis at this time, he does not appear to be responding to internal stimuli denies safety concerns Suicidal Thoughts: denies suicidal thoughts Homicidal Thoughts: denies homicidal thoughts Hallucinations: no auditory hallucinations and no visual hallucinations not formally tested, but remains on topic and task with examiner, and affirms the tratment plan as iterated by provider Estimated Intelligence: average estimated intelligence Insight: + limited insight Judgement: + limited judgement Vital Signs (Past 24 Hours) Last Vital Signs Temp 36.3 C L 07/02/19 06:00 Pulse 112 H 07/02/19 06:31 Resp 16 07/02/19 06:00 BP 119/74 07/02/19 06:31 Pulse Ox 97 06/20/19 15:01 Results & Data Current Inpatient Medications Current Inpatient Medications: Current Inpatient Medications Acetaminophen (Tylenol) 650 mg PO Q4H PRN PRN Reason: Headache or Minor Fever Stop: 07/20/19 17:46 Last Admin: 06/27/19 11:01 Dose: 650 mg Documented by: Al Hydrox/Mg Hydrox/Simethicone (Maalox) 30 ml PO Q4H PRN PRN Reason: GI Upset Stop: 07/20/19 17:46 Benztropine Mesylate (Cogentin) 1 mg IM Q4H PRN PRN Reason: EPS Stop: 07/21/19 10:01 Benztropine Mesylate (Cogentin) 1 mg PO Q4H PRN PRN Reason: EPS Stop: 07/21/19 10:44 Bismuth Subsalicylate (Kaopectate) 15 ml PO PRN PRN PRN Reason: Loose Stool Stop: 07/20/19 17:46 Clozapine (Clozapine) 300 mg PO HS LINO Stop: 07/26/19 21:59 Last Admin: 07/01/19 21:11 Dose: 300 mg Documented by: Haloperidol (Haldol) 5 mg PO Q4H PRN PRN Reason: psychosis Stop: 07/20/19 17:49 Last Admin: 06/23/19 17:13 Dose: 5 mg Documented by: Haloperidol (Haldol) 5 mg PO BID LINO Stop: 07/29/19 08:59 Last Admin: 07/02/19 08:30 Dose: 5 mg Documented by: Haloperidol Decanoate (Haldol Decanoate) 100 mg IM ONE ONE Stop: 07/04/19 08:01 Haloperidol Lactate (Haldol) 10 mg IM Q4H PRN PRN Reason: psychosis Stop: 07/21/19 09:59 Hydroxyzine HCl (Vistaril) 25 mg PO Q4H PRN PRN Reason: Anxiety Stop: 07/20/19 17:46 Hydroxyzine HCl (Vistaril) 50 mg PO HSZ PRN PRN Reason: Insomnia Stop: 07/20/19 17:46 Lorazepam (Ativan) 2 mg PO Q4H PRN PRN Reason: Anxiety Stop: 07/20/19 17:48 Last Admin: 06/22/19 06:47 Dose: 2 mg Documented by: Magnesium Hydroxide (Milk Of Magnesia) 30 ml PO DAILY PRN PRN Reason: Constipation Stop: 07/20/19 17:46 Sertraline HCl (Zoloft) 75 mg PO QAM LINO Stop: 07/21/19 08:59 Last Admin: 07/02/19 08:30 Dose: 75 mg Documented by: Sodium Chloride ([place] Nasal) 1 - 2 sprays NA PRN PRN PRN Reason: Nasal Dryness/Congestion Stop: 07/20/19 17:46 Mental Health & Subst Abuse Tx Psychiatrist Name of Psychiatrist: [facility] Paxton Aguilar Psychiatrist's Psychiatric Appointment Comment: [address] [facility] [place] [address] Therapist Name of Therapist: [facility] Paxton Caceres Therapist's Therapy Appointment Comment: [address] [place] [address] Collar Tailor Name of Collar Tailor: LOGAN Pena Phone Number for Collar Tailor: [phone] Date of Appointment with Collar Tailor: 06/23/19 Time of Appointment with Collar Tailor: 9:30 am Post Discharge Appointments Primary Care Physician Name Of Family Doctor: DEVYN Delgado Primary Care Provider Appointment Comment: [address], [place] [address] Specialist Name of Specialist: Deion Jackson Medication Management Paxton Saldana Phone Number for Specialist: [phone] Specialty Appointment Comment: Will see you in your home Contact Information Discharge Discharge Address: [address] [place] [address], [facility] [address], [place] [address] CPT Code CPT Code 73722
[2019-07-02] MEDS: cloZAPine 100 MG TAB PO SCH (21:17)
[2019-07-03] MEDS: SERTRALINE HCL 50 MG TABLET PO SCH (08:29)
[2019-07-03] MEDS: haloperidoL 5 MG TAB PO SCH ×2 (08:29→21:29)
--- NOTE | 2019-07-03 09:13 | Psychiatric Progress Note ---
Date of Service July 03, 2019 Impression / Recommendations Tatianna Orosco is a 29-year-old [place] male who lives with roommates in [place], has a history of schizophrenia, depression, alcohol use disorder, and treatment nonadherence, and has had multiple hospitalizations in the past month since he was discharged from the [facility] and moved to independent living in an apartment with several roommates. Both of his hospitalizations this past month have been triggered by erratic, disorganized behavior in the community, including going out in public in the nude, threatening other people, and severely disorganized thinking and speech. The patient's strengths include the fact that he does respond favorably to psychiatric medications. However, and overarching deficit is the fact that he is repeatedly not adherent with psychiatric treatment, including psychiatric medications, and tends to decompensate quickly. These decompensations are associated with dangerous behaviors, both to self and others, that rise to the level of risk of eminent serious physical harm. Pt has been resumed on home dose of sertraline 75mg, and clozapine has been titrated to previous dosing of 300mg qHS. The patient received Haldol Decanoate 25 mg on 06/24/19, 50 mg of Haldol D ecanoate on 06/27. Pt has demonstrated an apparent destabilization in the time since receiving these injections. It is likely that the dosage received will be insufficient to manage his psychosis - as demonstrated by increased demonstration of response to internal stimuli. Medication treatment plan has changed since determining that it is not likely patient will be able to be discharged to a [facility] with supervised medication administration. In anticipation of continued medication non-compliance, as patient's history demonstrates, it would be in the patient's best interest to optimize his CONDE dosing. A 100mg dose of haloperidol decanoate has been ordered and his oral supplementation has been titrated back to 5mg BID for the time being. We will target a maintenance dose of 150mg - with adjustment as indicated based on response/side effects. Per Dr Shen 06/1819: Currently, the patient's thought content is devoid of any psychotic features, he reports that he is not experiencing any perceptual disturbances, and our observations are that he does not appear to be responding to internal stimuli. His thinking and behavior is currently well organized, and is able to participate appropriately in group activities as well as an individual encounters. Our emphasis at this point is on aftercare planning. Given the patient's history of recurrent exacerbations of his psychiatric illn ess, born of his tendency to become nonadherent with treatment outside of the hospital, he will need additional community services in order to be safe and free from eminent harm. Currently, we will be recommending outpatient commitment, and we will be continuing Depo injectable antipsychotic medications. Concur with Dr Shen's statement as above based on my interaction with patient 07/02 and 07/03 and knowledge of his history of noncompliance and decompensation. (1) Schizophrenia: 06/21 -re-titrate clozapine to home dose of 300 mg at bedtime. Consider adding Haldol Decanoate for augmentation and concerns for due to nonadherence with oral medications. -Haloperidol as needed has been beneficial, so we will continue, while scheduling 5 mg twice daily. -Lorazepam 2 mg p.o./IM every 4 hours as needed for psychosis/agitation. -Benztropine as needed for EPS. -Coordinate care with blended disease case manager, and outpatient clinicians at [facility]. -Patient is giving inconsistent reports, but on presentation reported he had not been sleeping, which could explain some of his manic symptoms on presentation, as well as exacerbation of psychotic illness. Continue to assess and treat as necessary. 06/22 -continue medically necessary private room given degree of psychosis, disinhibition, sexually inappropriate behavior, and threats to others. -Continue clozapine titration and weekly CBC with differential. ANC 6.27 on 06/20/2019. Next CBC w/diff ordered for 07/04. -Continue haloperidol 5 mg twice daily, with 10 mg IM as needed. -Contact [facility] for clarification of medication compliance at home, and roommates for clarification of threats he made to them prior to admission. -303 hearing scheduled for tomorrow. 06/23 - 303 commitment granted. - Continue current medications, and recommend Haldol decanoate if current dose if effective. - Meeting with [facility] to discuss treatment plan (KESH[facility] CONDE). - Coordinate care with Dr. Aguilra at [facility] - to call cardio clinician. 06/24 -Haldol appears to be effective and well-tolerated. -Haldol decanoate started today at a dose of 25 mg IM. A 50 mg dose of Haldol decanoate will be given IM in 3 days. -Oral haloperidol will be continued 5 mg twice a day, but will be tapered as clinically indicated, depending upon the patient's response to the above. -Clozapine will be increased to 200 mg at bedtime, and further titrations will be made based on patient's clinical response. 06/25 - Continue current medication regimen - Order is scheduled for 50mg of haldol decanoate 50mg on 06/27; at which time we will reduce oral haloperidol dosing - Clozapine to be increased to 250mg this evening 06/26 - Continue current medication regimen; pt to receive 50mg of Haldol decanoate on 06/27 - Clozapine ordered to be maintained at 300mg qHS - CBC w/diff scheduled for tomorrow 06/27 - Continue clozapine 300mg qHS - continue weekly CBC with differential. ANC 3.54 on 06/27/2019 - Haldol decanoate 50mg was given this morning; oral haloperidol dosage reduced to 2.5mg BID starting this evening, tapering to discontinuation - Continue to explore available housing options that will provide patient with adequate support and supervision to reduce risk of harm to self or others - soda fountain manager to assist with CRR application, though unclear if there is bed availability 06/28 - Continue treatment plan as above 06/29 - Worsening of psychotic behavior was discussed - in light of likely discharge back to his apartment with additional support, history of medication noncompliance remains a large concern - Discussed optimizing patient's CONDE dosage in order to improve current behaviors, better maintain stability, and provide better overall coverage for likely oral medication noncompliance, with primary goal to prevent need for frequent readmissions - An additional dose of haloperidol decanoate 100mg has been ordered for 07/04 - as it is likely his current dosage is insufficient to achieve the goals stated above - Will titrate oral haloperidol back to 5mg BID in the interim - Continue to coordinate aftercare and discharge planning with patient's disease case manager - Will plan to have patient call his place of employment with social work, as it is not clear he still has a job given behavior prior to admission - Will encourage staff to challenge patient's thought content and attempt to process his rationale for his behavior on the unit 06/30 - Continue treatment plan as outlined above - 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 -Our recommendation is that he limit his work day in the community to no more than 8-hour days and that he work no more than 32 hours a week. A letter to this effect has been written and signed by his physician. -The current plan is to convert the patient's involuntary commitment to outpatient commitment next week. -The patient met with his disease case manager today and we have been told that there appears to be a vacancy in a residential rehabilitation program that we agree will be suitable to his clinical and safety needs. This option is currently being pursued. -An additional dose of Haldol decanoate 100 mg IM is ordered for 07/04/2019. His dose of oral haloperidol has been tapered and it is anticipated that it will be further tapered and possibly discontinued subsequent to his next dose of Haldol Decanoate. 07/02 and - no change in plan, see 07/01/19, watch asymptomatic tachycardia may be due to med combination as not happening on clozaril alone, and not listed SE of haldol decanoate, afebrile and no rigidity, but watch for rare but possible NMS (2) Homicidal ideation: 06/21 -the petition from the patient's [facility] states he threatened to harm his roommates. Would recommend they be contacted to clarify the statements made in the housing situation, including whether the patient is even able to return to the apartment. 06/23 - SW unable to contact roommates as do not have contact information, but he did sign a release to contact his landlord. 06/24 -The patient is denying homicidal ideation and denies that he threatened his roommates. However, there is objective evidence that he did, in fact, make threats to cause serious physical harm to others prior to admission. 06/27 - Patient continues to deny HI 07/01 -This problem is considered resolved. (3) Depression: 06/21 -continue home dose of sertraline 75 mg daily. Continue to assess and monitor mood his psychosis improves. 06/24 - sertraline will be continued for depression and anxiety. 06/29 - Pt continues to state he is "happy" and a 06/23 on the unit - his affect continues to be noncongruent with reported mood 07/01 and 07/02 and 07/03/19 -The patient reports that his mood is good and he is not feeling depressed. His affect is euthymic. (4) Anxiety: 06/21 -patient reports episodic anxiety in the context of believing he lost his keys and wallet. As needed medications as above, continue sertraline as above. Once he is less psychotic, encourage group attendance and participation, work on healthy coping skills and behavioral techniques for managing anxiety. 06/14 -sertraline is being continued for both anxiety and depression. 07/01 and 07/02 and 07/03/19 -The patient continues to report that he is not feeling anxious, apart from what he considers to be "normal" anxiety regarding uncertainty regarding his community placement. (5) Alcohol use disorder: 06/21 -patient reports he drank to intoxication on his birthday several days prior to hospitalization. This likely contributed to decompensation. Once he is less psychotic, will engage in further discussion of the risks of substance abuse and recommendations for abstinence. 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 He is on a 303 involuntary commitment as of 06/23/2019. Chief Complaint "I am well thank you". Review of Systems Sleep Information Total Hours of Sleep: 7.75 Sleep Comments: awake around 0600-out to the kitchen for a drink from the fridge Meal Information Percent Meal Consumed - Breakfast: 100 Percent Meal Consumed - Lunch: 100 Percent Meal Consumed - Dinner: 100 Nutrition Comment: pt. asleep Subjective Subjective Patient was seen & assessed and interval progress reviewed with treatment team Per staff starr is engaging in milieu some. He was noted to talk to himself yesterday when by himself on occassion and talking to himself in the 2nd of 2 groups held by social media assistant. Otherwise is NAD. Met with patient this AM he denies concerns with mood, anxiety, denies AVH, IOR or paranoia. He does stutter more today. When asked about talking to himself yesterday he states "I was practicing my thoughts out loud due to my stutter, I have to practice to assure it will come out okay." He denies side effects from his medications and is aware he will receive the second haldol decanoate shot tomorrow. ROS: denies EPS, dystonia, akathisia, tachycardia is asymptomatic as he denies SOB, OROURKE, palpitations, or dizzyness, or swelling, he denies GI upset Physical Exam Psychiatric Orientation: alert and oriented x 3 dressed in t-shirt and hospital pants same as yesterday, he appears clean Eye Contact: good eye contact except when stuttering he lowers his head part way and has a [id number] movement Motor Behavior: steady gait and station Speech: normal rate/rhythm/volume of speech stuttering at times in todays interveiw but is patient and persists to complete his thought, not appearing overtly frustrated with these delays, at times however his speech is fluid Affect: + blunted affect "okay" Thought Process: goal directed thought process and clear/coherent thought process as noted above, denies safety concerns, states he is "okay" but paucity of developing that thought ,does share more about his stutter and being made fun of and that is why he talks to himself not having insight that this behavior had disappeared for some time during this hospital stay Suicidal Thoughts: denies suicidal thoughts Homicidal Thoughts: denies homicidal thoughts denies AVH, but is talking to self yesterday as noted by staff, denies parnoia or IOR Cognition: attention grossly intact Estimated Intelligence: average estimated intelligence Insight: + limited insight Judgement: + limited judgement Vital Signs (Past 24 Hours) Last Vital Signs Temp 36.9 C 07/03/19 06:52 Pulse 111 H 07/03/19 06:53 Resp 18 07/03/19 06:52 BP 145/94 H 07/03/19 06:53 Pulse Ox 97 06/20/19 15:01 Results & Data Current Inpatient Medications Current Inpatient Medications: Current Inpatient Medications Acetaminophen (Tylenol) 650 mg PO Q4H PRN PRN Reason: Headache or Minor Fever Stop: 07/20/19 17:46 Last Admin: 06/27/19 11:01 Dose: 650 mg Documented by: Al Hydrox/Mg Hydrox/Simethicone (Maalox) 30 ml PO Q4H PRN PRN Reason: GI Upset Stop: 07/20/19 17:46 Benztropine Mesylate (Cogentin) 1 mg IM Q4H PRN PRN Reason: EPS Stop: 07/21/19 10:01 Benztropine Mesylate (Cogentin) 1 mg PO Q4H PRN PRN Reason: EPS Stop: 07/21/19 10:44 Bismuth Subsalicylate (Kaopectate) 15 ml PO PRN PRN PRN Reason: Loose Stool Stop: 07/20/19 17:46 Clozapine (Clozapine) 300 mg PO HS LINO Stop: 07/26/19 21:59 Last Admin: 07/02/19 21:17 Dose: 300 mg Documented by: Haloperidol (Haldol) 5 mg PO Q4H PRN PRN Reason: psychosis Stop: 07/20/19 17:49 Last Admin: 06/23/19 17:13 Dose: 5 mg Documented by: Haloperidol (Haldol) 5 mg PO BID LINO Stop: 07/29/19 08:59 Last Admin: 07/03/19 08:29 Dose: 5 mg Documented by: Haloperidol Decanoate (Haldol Decanoate) 100 mg IM ONE ONE Stop: 07/04/19 08:01 Haloperidol Lactate (Haldol) 10 mg IM Q4H PRN PRN Reason: psychosis Stop: 07/21/19 09:59 Hydroxyzine HCl (Vistaril) 25 mg PO Q4H PRN PRN Reason: Anxiety Stop: 07/20/19 17:46 Hydroxyzine HCl (Vistaril) 50 mg PO HSZ PRN PRN Reason: Insomnia Stop: 07/20/19 17:46 Lorazepam (Ativan) 2 mg PO Q4H PRN PRN Reason: Anxiety Stop: 07/20/19 17:48 Last Admin: 06/22/19 06:47 Dose: 2 mg Documented by: Magnesium Hydroxide (Milk Of Magnesia) 30 ml PO DAILY PRN PRN Reason: Constipation Stop: 07/20/19 17:46 Sertraline HCl (Zoloft) 75 mg PO QAM LINO Stop: 07/21/19 08:59 Last Admin: 07/03/19 08:29 Dose: 75 mg Documented by: Sodium Chloride ([place] Nasal) 1 - 2 sprays NA PRN PRN PRN Reason: Nasal Dryness/Congestion Stop: 07/20/19 17:46 Mental Health & Subst Abuse Tx Psychiatrist Name of Psychiatrist: MADISON Paxton Aguilar Psychiatrist's Psychiatric Appointment Comment: [address] [facility] [email or web address] [address] Therapist Name of Therapist: [facility] Paxton Caceres Therapist's Therapy Appointment Comment: [address] [facility] [place] [address] Massage Therapist Name of Massage Therapist: LOGAN Pena Phone Number for Massage Therapist: [phone] Date of Appointment with Massage Therapist: 06/23/19 Time of Appointment with Massage Therapist: 9:30 am Post Discharge Appointments Primary Care Physician Name Of Family Doctor: DEVYN Delgado Primary Care Provider Appointment Comment: [address], [place] [address] Specialist Name of Specialist: Deion Jackson Medication Management Paxton Saldana Phone Number for Specialist: [phone] Specialty Appointment Comment: Will see you in your home Contact Information Discharge Discharge Address: [address] [place] [address], [facility], [place] [address] CPT Code CPT Code 84841
[2019-07-03] MEDS: cloZAPine 100 MG TAB PO SCH (21:30)
[2019-07-04] MEDS ORDERED: HALOPERIDOL DECANOATE INJ 50 MG/ML VIAL IM ONE (08:00)
[2019-07-04] MEDS: SERTRALINE HCL 50 MG TABLET PO SCH (08:09)
[2019-07-04] MEDS: haloperidoL 5 MG TAB PO SCH ×2 (08:13→21:22)
[2019-07-04 09:45] LABS: Basophils # (auto) 0.05 K/uL (0-0.2); Basophils % (auto) 0.6 %; Eosinophils # (auto) 0.39 K/uL (0-0.5); Hematocrit (blood only) 41.5 % (42-52); Hemoglobin 13.7 g/dL (14.0-18.0); Immature Granulocytes # (auto) 0.02 K/uL (0.00-0.02); Immature Granulocytes % (auto) 0.3 %; Lymphocytes # (auto) 2.82 K/uL (1.2-3.4); Lymphocytes % (auto) 36.1 %; Mean Corpuscular Hemoglobin 29.7 pg (25-34); Mean Corpuscular Volume 89.8 fL (80-100); Mean Platelet Volume 10.1 fL (7.4-10.4); Monocytes # (auto) 0.43 K/uL (0.11-0.59); Monocytes % (auto) 5.5 %; Neutrophils # (auto) 4.11 K/uL (1.4-6.5); Neutrophils % (auto) 52.5 %; Platelet Count 338 K/uL (130-400); RDW Coefficient of Variation 14.9 % (11.5-14.5); RDW Standard Deviation 49.2 fL (36.4-46.3); Red Blood Count 4.62 M/uL (4.7-6.1); White Blood Count 7.82 K/uL (4.8-10.8)
--- NOTE | 2019-07-04 11:00 | Psychiatric Progress Note ---
Date of Service July 04, 2019 Impression / Recommendations Tatianna Orosco is a 29-year-old Somali male who lives with roommates in [place], has a history of schizophrenia, depression, alcohol use disorder, and treatment nonadherence, and has had multiple hospitalizations in the past month since he was discharged from the [facility] halfway and moved to independent living in an apartment with several roommates. Both of his hospitalizations this past month have been triggered by erratic, disorganized behavior in the community, including going out in public in the nude, threatening other people, and severely disorganized thinking and speech. The patient's strengths include the fact that he does respond favorably to psychiatric medications. However, and overarching deficit is the fact that he is repeatedly not adherent with psychiatric treatment, including psychiatric medications, and tends to decompensate quickly. These decompensations are associated with dangerous behaviors, both to self and others, that rise to the level of risk of eminent serious physical harm. Pt has been resumed on home dose of sertraline 75mg, and clozapine has been titrated to previous dosing of 300mg qHS. In anticipation of continued medication non-compliance, as patient's history demonstrates, it would be in the patient's best interest to optimize his CONDE dosing. The patient received Haldol Decanoate 25 mg on 06/24/19, 50 mg of Haldol Decanoate on 06/27. Which was followed by an additional 100mg dose on 07/04 after apparent destabilization and the above change in treatment plan to focus more on CONDE than oral medications. We will target a maintenance dose of 150mg of haloperidol decanoate - with adjustment as indicated based on response/side effects. Per Dr Shen 07/01/19: Currently, the patient's thought content is devoid of any psychotic features, he reports that he is not experiencing any perceptual disturbances, and our observations are that he does not appear to be responding to internal stimuli. His thinking and behavior is currently well organized, and is able to participate appropriately in group activities as well as an individual encounters. Our emphasis at this point is on aftercare planning. Given the patient's history of recurrent exacerbations of his psychiatric illness, born of his tendency to become nonadherent with treatment outside of the hospital, he will need additional community services in order to be safe and free from eminent harm. Currently, we will be recommending outpatient commitment, and we will be continuing Depo injectable antipsychotic medications. (1) Schizophrenia: 06/21 -re-titrate clozapine to home dose of 300 mg at bedtime. Consider adding Haldol Decanoate for augmentation and concerns for due to nonadherence with oral medications. -Haloperidol as needed has been beneficial, so we will continue, while scheduling 5 mg twice daily. -Lorazepam 2 mg p.o./IM every 4 hours as needed for psychosis/agitation. -Benztropine as needed for EPS. -Coordinate care with blended pillowcase cleaner, and outpatient clinicians at [facility]. -Patient is giving inconsistent reports, but on presentation reported he had not been sleeping, which could explain some of his manic symptoms on presentation, as well as exacerbation of psychotic illness. Continue to assess and treat as necessary. 06/22 -continue medically necessary private room given degree of psychosis, disinhibition, sexually inappropriate behavior, and threats to others. -Continue clozapine titration and weekly CBC with differential. ANC 6.27 on 06/20/2019. Next CBC w/diff ordered for 07/04. -Continue haloperidol 5 mg twice daily, with 10 mg IM as needed. -Contact [facility] for clarification of medication compliance at home, and roommates for clarification of threats he made to them prior to admission. -303 hearing scheduled for tomorrow. 06/23 - 303 commitment granted. - Continue current medications, and recommend Haldol decanoate if current dose if effective. - Meeting with [facility] to discuss treatment plan (AMAYA, KESHIA). - Coordinate care with Dr. Aguilar at [facility] - to call clinical registered nurse. 06/24 -Haldol appears to be effective and well-tolerated. -Haldol decanoate started today at a dose of 25 mg IM. A 50 mg dose of Haldol decanoate will be given IM in 3 days. -Oral haloperidol will be continued 5 mg twice a day, but will be tapered as clinically indicated, depending upon the patient's response to the above. -Clozapine will be increased to 200 mg at bedtime, and further titrations will be made based on patient's clinical response. 06/25 - Continue current medication regimen - Order is scheduled for 50mg of haldol decanoate 50mg on 06/27; at which time we will reduce oral haloperidol dosing - Clozapine to be increased to 250mg this evening 06/26 - Continue current medication regimen; pt to receive 50mg of Haldol decanoate on 06/27 - Clozapine ordered to be maintained at 300mg qHS - CBC w/diff scheduled for tomorrow 06/27 - Continue clozapine 300mg qHS - continue weekly CBC with differential. ANC 3.54 on 06/27/2019 - Haldol decanoate 50mg was given this morning; oral haloperidol dosage reduced to 2.5mg BID starting this evening, tapering to discontinuation - Continue to explore available housing options that will provide patient with adequate support and supervision to reduce risk of harm to self or others - freight manager to assist with CRR application, though unclear if there is bed availability 06/28 - Continue treatment plan as above 06/29 - Worsening of psychotic behavior was discussed - in light of likely discharge back to his apartment with additional support, history of medication noncompliance remains a large concern - Discussed optimizing patient's CONDE dosage in order to improve current behaviors, better maintain stability, and provide better overall coverage for likely oral medication noncompliance, with primary goal to prevent need for frequent readmissions - An additional dose of haloperidol decanoate 100mg has been ordered for 07/04 - as it is likely his current dosage is insufficient to achieve the goals stated above - Will titrate oral haloperidol back to 5mg BID in the interim - Continue to coordinate aftercare and discharge planning with patient's pillowcase cleaner - Will plan to have patient call his place of employment with social work, as it is not clear he still has a job given behavior prior to admission - Will encourage staff to challenge patient's thought content and attempt to process his rationale for his behavior on the unit 06/30 - Continue treatment plan as outlined above - 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 -Our recommendation is that he limit his work day in the community to no more than 8-hour days and that he work no more than 32 hours a week. A letter to this effect has been written and signed by his physician. -The current plan is to convert the patient's involuntary commitment to outpatient commitment next week. -The patient met with his pillowcase cleaner today and we have been told that there appears to be a vacancy in a residential rehabilitation program that we agree will be suitable to his clinical and safety needs. This option is currently being pursued. -An additional dose of Haldol decanoate 100 mg IM is ordered for 07/04/2019. His dose of oral haloperidol has been tapered and it is anticipated that it will be further tapered and possibly discontinued subsequent to his next dose of Haldol Decanoate. 07/02 and - no change in plan, see 07/01/19, watch asymptomatic tachycardia may be due to med combination as not happening on clozaril alone, and not listed SE of haldol decanoate, afebrile and no rigidity, but watch for rare but possible NMS 07/04 - Pt received haloperidol decanoate 100mg this morning - will taper oral haloperidol to 2.5mg qAM and 5mg qHS for several days - with further taper as tolerated - Asymptomatic tachycardia is ongoing with evidence of additional concerning symptoms at this time, will continue to monitor vitals - Pt to meet with [facility] banking representative today, possibility of an available bed sooner than initially anticipated (2) Homicidal ideation: 06/21 -the petition from the patient's [facility] states he threatened to harm his roommates. Would recommend they be contacted to clarify the statements made in the housing situation, including whether the patient is even able to return to the apartment. 06/23 - SW unable to contact roommates as do not have contact information, but he did sign a release to contact his landlord. 06/24 -The patient is denying homicidal ideation and denies that he threatened his roommates. However, there is objective evidence that he did, in fact, make threats to cause serious physical harm to others prior to admission. 06/27 - Patient continues to deny HI 07/01 -This problem is considered resolved. (3) Depression: 06/21 -continue home dose of sertraline 75 mg daily. Continue to assess and monitor mood his psychosis improves. 06/24 - sertraline will be continued for depression and anxiety. 06/29 - Pt continues to state he is "happy" and a 06/23 on the unit - his affect continues to be noncongruent with reported mood 07/01 and 07/02 and 07/03/19 -The patient reports that his mood is good and he is not feeling depressed. His affect is euthymic. (4) Anxiety: 06/21 -patient reports episodic anxiety in the context of believing he lost his keys and wallet. As needed medications as above, continue sertraline as above. Once he is less psychotic, encourage group attendance and participation, work on healthy coping skills and behavioral techniques for managing anxiety. 06/14 -sertraline is being continued for both anxiety and depression. 07/01 and 07/02 and 07/03/19 -The patient continues to report that he is not feeling anxious, apart from what he considers to be "normal" anxiety regarding uncertainty regarding his community placement. (5) Alcohol use disorder: 06/21 -patient reports he drank to intoxication on his birthday several days prior to hospitalization. This likely contributed to decompensation. Once he is less psychotic, will engage in further discussion of the risks of substance abuse and recommendations for abstinence. 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 He is on a 303 involuntary commitment as of 06/23/2019. Chief Complaint "Fine, thank you." Review of Systems Notes Constitutional: reports decent sleep in the evenings and no daytime fatigue, though was found sleeping during group prior to interview with this provider Cardiovascular: denied Respiratory: denied Gastrointestinal: denied Neurological: denied Psychiatric: denies symptoms other than stated above Total of at least 10 systems reviewed, pertinent positives as above and in HPI. Sleep Information Total Hours of Sleep: 9.25 Sleep Comments: pt appeared to sleep 2.25 hrs during evening. pt on q-15 minute checks Meal Information Percent Meal Consumed - Breakfast: 100 Percent Meal Consumed - Lunch: 100 Percent Meal Consumed - Dinner: 100 Nutrition Comment: pt. asleep Subjective Subjective Patient was seen & assessed and interval progress reviewed with treatment team. Staff reports patient continues to make comments to himself during group that appear to be response to internal stimuli, which the patient denies. He is to have a meeting today with a banking representative from [facility] to discuss the possibility of an available bed date sooner than originally anticipated. Patient was seen today to assess progress since admission. He states that he is "fine." He shares with this provider at that he was informed that might be possible for him to go to a CRR sooner than expected. He denies any specific questions or topics he would like to discuss with the CRR banking representative coming this afternoon. Patient continues to believe that this is the most supportive environment for him to continue his psychiatric treatment. He also admits that this environment supported him and being successful at his job, which independent living is not able to do. The patient denies any physical side effects with regards to medications. He did receive an additional injection of haloperidol decanoate this morning, reasoning of this again was explained to patient. Patient is agreeable that optimizing an CONDE is more conducive to supporting the level of independence the patient desires. Patient denies suicidal and homicidal ideation. He denies other needs or concerns today. Physical Exam Psychiatric Orientation: alert, oriented x 3 and cooperative Apperance: appropriately dressed (Casually, in T-shirt and scrub pants), appropriately groomed and appeared stated age Eye Contact: good eye contact Motor Behavior: steady gait and station and no abnormal motor movements Historical take disorder, unchanged from baseline Speech: normal rate/rhythm/volume of speech (Monotone) Historical stutter, unchanged from baseline Affect: + blunted affect Mood: no depressed mood ("Fine, thank you.") Thought Process: goal directed thought process and clear/coherent thought process Suicidal Thoughts: denies suicidal thoughts Homicidal Thoughts: denies homicidal thoughts Hallucinations: no auditory hallucinations and no visual hallucinations Insight: + limited insight Judgement: + limited judgement Vital Signs (Past 24 Hours) Last Vital Signs Temp 36.7 C 07/04/19 06:50 Pulse 105 H 07/04/19 06:51 Resp 18 07/04/19 06:50 BP 143/91 H 07/04/19 06:51 Pulse Ox 97 06/20/19 15:01 Results & Data Laboratory Results Laboratory Results - last 24 hr 07/04/19 09:36 WBC 7.82 RBC 4.62 L Hgb 13.7 L Hct 41.5 L MCV 89.8 MCH 29.7 MCHC 33.0 RDW Std Deviation 49.2 H RDW Coeff of Tawanna 14.9 H Plt Count 338 MPV 10.1 Immature Gran % (Auto) 0.3 Neut % (Auto) 52.5 Lymph % (Auto) 36.1 [place]fee % (Auto) 5.5 Eos % (Auto) 5.0 Baso % (Auto) 0.6 Immature Gran # (Auto) 0.02 Neut # (Auto) 4.11 Lymph # (Auto) 2.82 [place] # (Auto) 0.43 Eos # (Auto) 0.39 Baso # (Auto) 0.05 Current Inpatient Medications Current Inpatient Medications: Current Inpatient Medications Acetaminophen (Tylenol) 650 mg PO Q4H PRN PRN Reason: Headache or Minor Fever Stop: 07/20/19 17:46 Last Admin: 06/27/19 11:01 Dose: 650 mg Documented by: Al Hydrox/Mg Hydrox/Simethicone (Maalox) 30 ml PO Q4H PRN PRN Reason: GI Upset Stop: 07/20/19 17:46 Benztropine Mesylate (Cogentin) 1 mg IM Q4H PRN PRN Reason: EPS Stop: 07/21/19 10:01 Benztropine Mesylate (Cogentin) 1 mg PO Q4H PRN PRN Reason: EPS Stop: 07/21/19 10:44 Bismuth Subsalicylate (Kaopectate) 15 ml PO PRN PRN PRN Reason: Loose Stool Stop: 07/20/19 17:46 Clozapine (Clozapine) 300 mg PO HS LINO Stop: 07/26/19 21:59 Last Admin: 07/03/19 21:30 Dose: 300 mg Documented by: Haloperidol (Haldol) 5 mg PO Q4H PRN PRN Reason: psychosis Stop: 07/20/19 17:49 Last Admin: 06/23/19 17:13 Dose: 5 mg Documented by: Haloperidol (Haldol) 5 mg PO BID LINO Stop: 07/29/19 08:59 Last Admin: 07/04/19 08:13 Dose: 5 mg Documented by: Haloperidol Lactate (Haldol) 10 mg IM Q4H PRN PRN Reason: psychosis Stop: 07/21/19 09:59 Hydroxyzine HCl (Vistaril) 25 mg PO Q4H PRN PRN Reason: Anxiety Stop: 07/20/19 17:46 Hydroxyzine HCl (Vistaril) 50 mg PO HSZ PRN PRN Reason: Insomnia Stop: 07/20/19 17:46 Lorazepam (Ativan) 2 mg PO Q4H PRN PRN Reason: Anxiety Stop: 07/20/19 17:48 Last Admin: 06/22/19 06:47 Dose: 2 mg Documented by: Magnesium Hydroxide (Milk Of Magnesia) 30 ml PO DAILY PRN PRN Reason: Constipation Stop: 07/20/19 17:46 Sertraline HCl (Zoloft) 75 mg PO QAM LINO Stop: 07/21/19 08:59 Last Admin: 07/04/19 08:09 Dose: 75 mg Documented by: Sodium Chloride (Evans Nasal) 1 - 2 sprays NA PRN PRN PRN Reason: Nasal Dryness/Congestion Stop: 07/20/19 17:46 Mental Health & Subst Abuse Tx Psychiatrist Name of Psychiatrist: SUSANNAH Aguilar Psychiatrist's Psychiatric Appointment Comment: [address] [place] [address] Therapist Name of Therapist: [facility] Paxton Caceres Therapist's Therapy Appointment Comment: [address] [place] [address] Cost Specialist Name of Cost Specialist: LOGAN Pena Phone Number for Cost Specialist: [phone] Date of Appointment with Cost Specialist: 06/23/19 Time of Appointment with Cost Specialist: 9:30 am Post Discharge Appointments Primary Care Physician Name Of Family Doctor: DEVYN Delgado Primary Care Provider Appointment Comment: [address], [place] [address] Specialist Name of Specialist: Deion Dye [facility] Paxton Saldana Phone Number for Specialist: [phone] Specialty Appointment Comment: Will see you in your home Contact Information Discharge Discharge Address: [address] [place] [address], [facility], [place] [address]
[2019-07-04] MEDS ORDERED: TUBERCULIN SKIN TEST 5 TU in SYRINGE 0 ML ID ONE (20:00)
[2019-07-04] MEDS: cloZAPine 100 MG TAB PO SCH (21:22)
[2019-07-05] MEDS: haloperidoL 5 MG TAB PO SCH ×2 (08:06→21:11)
[2019-07-05] MEDS: SERTRALINE HCL 50 MG TABLET PO SCH (08:06)
--- NOTE | 2019-07-05 10:06 | Psychiatric Progress Note ---
Date of Service July 05, 2019 Impression / Recommendations Tatianna Orosco is a 29-year-old [place] Citizen male who lives with roommates in [place], has a history of schizophrenia, depression, alcohol use disorder, and treatment nonadherence, and has had multiple hospitalizations in the past month since he was discharged from the [facility] and moved to independent living in an apartment with several roommates. Both of his hospitalizations this past month have been triggered by erratic, disorganized behavior in the community, including going out in public in the nude, threatening other people, and severely disorganized thinking and speech. The patient's strengths include the fact that he does respond favorably to psychiatric medications. However, and overarching deficit is the fact that he is repeatedly not adherent with psychiatric treatment, including psychiatric medications, and tends to decompensate quickly. These decompensations are associated with dangerous behaviors, both to self and others, that rise to the level of risk of eminent serious physical harm. Pt has been resumed on home dose of sertraline 75mg, and clozapine has been titrated to previous dosing of 300mg qHS. In anticipation of continued medication non-compliance, as patient's history demonstrates, it would be in the patient's best interest to optimize his CONDE dosing. The patient received Haldol Decanoate 25 mg on 06/24/19, 50 mg of Haldol Decanoate on 06/27. Which was followed by an additional 100mg dose on 07/04 after apparent destabilization and the above change in treatment plan to focus more on CONDE than oral medications. We will target a maintenance dose of 150mg of haloperidol decanoate - with adjustment as indicated based on response/side effects. Per Dr Shen 07/01/19: Currently, the patient's thought content is devoid of any psychotic features, he reports that he is not experiencing any perceptual disturbances, and our observations are that he does not appear to be responding to internal stimuli. His thinking and behavior is currently well organized, and is able to participate appropriately in group activities as well as an individual encounters. Our emphasis at this point is on aftercare planning. Given the patient's history of recurrent exacerbations of his psychiatric illness, born of his tendency to become nonadherent with treatment outside of the hospital, he will need additional community services in order to be safe and free from eminent harm. Currently, we will be recommending outpatient commitment, and we will be continuing Depo injectable antipsychotic medications. (1) Schizophrenia: 06/21 -re-titrate clozapine to home dose of 300 mg at bedtime. Consider adding Haldol Decanoate for augmentation and concerns for due to nonadherence with oral medications. -Haloperidol as needed has been beneficial, so we will continue, while scheduling 5 mg twice daily. -Lorazepam 2 mg p.o./IM every 4 hours as needed for psychosis/agitation. -Benztropine as needed for EPS. -Coordinate care with blended cyanide case hardener, and outpatient clinicians at [facility]. -Patient is giving inconsistent reports, but on presentation reported he had not been sleeping, which could explain some of his manic symptoms on presentation, as well as exacerbation of psychotic illness. Continue to assess and treat as necessary. 06/22 -continue medically necessary private room given degree of psychosis, disinhibition, sexually inappropriate behavior, and threats to others. -Continue clozapine titration and weekly CBC with differential. ANC 6.27 on 06/20/2019. Next CBC w/diff ordered for 07/04. -Continue haloperidol 5 mg twice daily, with 10 mg IM as needed. -Contact [facility] for clarification of medication compliance at home, and roommates for clarification of threats he made to them prior to admission. -303 hearing scheduled for tomorrow. 06/23 - 303 commitment granted. - Continue current medications, and recommend Haldol decanoate if current dose if effective. - Meeting with [facility] to discuss treatment plan (AMAYA, KESHIA). - Coordinate care with Dr. Aguilar at [facility] - to call clinical education coordinator. 06/24 -Haldol appears to be effective and well-tolerated. -Haldol decanoate started today at a dose of 25 mg IM. A 50 mg dose of Haldol decanoate will be given IM in 3 days. -Oral haloperidol will be continued 5 mg twice a day, but will be tapered as clinically indicated, depending upon the patient's response to the above. -Clozapine will be increased to 200 mg at bedtime, and further titrations will be made based on patient's clinical response. 06/25 - Continue current medication regimen - Order is scheduled for 50mg of haldol decanoate 50mg on 06/27; at which time we will reduce oral haloperidol dosing - Clozapine to be increased to 250mg this evening 06/26 - Continue current medication regimen; pt to receive 50mg of Haldol decanoate on 06/27 - Clozapine ordered to be maintained at 300mg qHS - CBC w/diff scheduled for tomorrow 06/27 - Continue clozapine 300mg qHS - continue weekly CBC with differential. ANC 3.54 on 06/27/2019 - Haldol decanoate 50mg was given this morning; oral haloperidol dosage reduced to 2.5mg BID starting this evening, tapering to discontinuation - Continue to explore available housing options that will provide patient with adequate support and supervision to reduce risk of harm to self or others - commercial intelligence manager to assist with CRR application, though unclear if there is bed availability 06/28 - Continue treatment plan as above 06/29 - Worsening of psychotic behavior was discussed - in light of likely discharge back to his apartment with additional support, history of medication noncompliance remains a large concern - Discussed optimizing patient's CONDE dosage in order to improve current behaviors, better maintain stability, and provide better overall coverage for likely oral medication noncompliance, with primary goal to prevent need for frequent readmissions - An additional dose of haloperidol decanoate 100mg has been ordered for 07/04 - as it is likely his current dosage is insufficient to achieve the goals stated above - Will titrate oral haloperidol back to 5mg BID in the interim - Continue to coordinate aftercare and discharge planning with patient's cyanide case hardener - Will plan to have patient call his place of employment with social work, as it is not clear he still has a job given behavior prior to admission - Will encourage staff to challenge patient's thought content and attempt to process his rationale for his behavior on the unit 06/30 - Continue treatment plan as outlined above - 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 -Our recommendation is that he limit his work day in the community to no more than 8-hour days and that he work no more than 32 hours a week. A letter to this effect has been written and signed by his physician. -The current plan is to convert the patient's involuntary commitment to outpatient commitment next week. -The patient met with his cyanide case hardener today and we have been told that there appears to be a vacancy in a residential rehabilitation program that we agree will be suitable to his clinical and safety needs. This option is currently being pursued. -An additional dose of Haldol decanoate 100 mg IM is ordered for 07/04/2019. His dose of oral haloperidol has been tapered and it is anticipated that it will be further tapered and possibly discontinued subsequent to his next dose of Haldol Decanoate. 07/02 and - no change in plan, see 07/01/19, watch asymptomatic tachycardia may be due to med combination as not happening on clozaril alone, and not listed SE of haldol decanoate, afebrile and no rigidity, but watch for rare but possible NMS 07/04 - Pt received haloperidol decanoate 100mg this morning - will taper oral haloperidol to 2.5mg qAM and 5mg qHS for several days - with further taper as tolerated - Asymptomatic tachycardia is ongoing with evidence of additional concerning symptoms at this time, will continue to monitor vitals - Pt to meet with [facility] medical representative today, possibility of an available bed sooner than initially anticipated 07/05 - Oral haloperidol reduced for tomorrow to 2.5mg qAM and 5mg qHS - planning to continue for several days to a week; continue taper as tolerated - Continue to explore possibility of CRR acceptance, as it is reported that beds are available - Continue to coordinate appropriate discharge and safety plan (2) Homicidal ideation: 06/21 -the petition from the patient's [facility] states he threatened to harm his roommates. Would recommend they be contacted to clarify the statements made in the housing situation, including whether the patient is even able to return to the apartment. 06/23 - SW unable to contact roommates as do not have contact information, but he did sign a release to contact his landlord. 06/24 -The patient is denying homicidal ideation and denies that he threatened his roommates. However, there is objective evidence that he did, in fact, make threats to cause serious physical harm to others prior to admission. 06/27 - Patient continues to deny HI 07/01 -This problem is considered resolved. (3) Depression: 06/21 -continue home dose of sertraline 75 mg daily. Continue to assess and monitor mood his psychosis improves. 06/24 - sertraline will be continued for depression and anxiety. 06/29 - Pt continues to state he is "happy" and a / on the unit - his affect continues to be noncongruent with reported mood 07/01 and 07/02 and 07/03/19 -The patient reports that his mood is good and he is not feeling depressed. His affect is euthymic. (4) Anxiety: 06/21 -patient reports episodic anxiety in the context of believing he lost his keys and wallet. As needed medications as above, continue sertraline as above. Once he is less psychotic, encourage group attendance and participation, work on healthy coping skills and behavioral techniques for managing anxiety. 06/14 -sertraline is being continued for both anxiety and depression. 07/01 and 07/02 and 07/03/19 -The patient continues to report that he is not feeling anxious, apart from what he considers to be "normal" anxiety regarding uncertainty regarding his community placement. (5) Alcohol use disorder: 06/21 -patient reports he drank to intoxication on his birthday several days prior to hospitalization. This likely contributed to decompensation. Once he is less psychotic, will engage in further discussion of the risks of substance abuse and recommendations for abstinence. 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 He is on a 303 involuntary commitment as of 06/23/2019. Chief Complaint "Alright." Review of Systems Notes Constitutional: denied Cardiovascular: denied Respiratory: denied Gastrointestinal: denied Neurological: denied Psychiatric: denies symptoms other than stated above Total of at least 10 systems reviewed, pertinent positives as above and in HPI. Sleep Information Total Hours of Sleep: 7.25 Sleep Comments: pt appeared to sleep 2.25 hrs during evening. pt on q-15 minute checks Meal Information Percent Meal Consumed - Breakfast: 100 Percent Meal Consumed - Lunch: 100 Percent Meal Consumed - Dinner: 100 Nutrition Comment: pt. asleep Subjective Subjective Patient was seen & assessed and interval progress reviewed with nursing and social work. Staff reports the patient is to be meeting with his cyanide case hardener this morning. It is possible that a CRR bed will be available sooner than anticipated. This still needs to be clarified with patient's cyanide case hardener and the county. Patient did receive TB test yesterday evening in preparation for CRR referral/acceptance. Patient was seen today to assess progress since admission. He states that he is feeling "alright today". Patient states that his meeting this morning went well, that "Neda typed up a letter giving the reasons why it should be considered for me to be let out of my lease." Patient states that he was told that his CRR may be an option, but otherwise the plan is for him to go back to his apartment with daily visits between a home health nurse and his cyanide case hardener. Of course, this will need to be confirmed as it is not always clear if patient's reporting is reliable. We reviewed current medication regimen, additional dose of haloperidol decanoate given yesterday, and medication regimen with anticipated changes. Patient denies having any questions related to his treatment thus far. He denies SI/HI. He denies other acute needs or concerns at this time. Physical Exam Psychiatric Orientation: alert, oriented x 3 and cooperative Apperance: appropriately dressed (Casually, in new T shirt and scrub pants), appropriately groomed and appeared stated age Eye Contact: good eye contact Motor Behavior: steady gait and station and no abnormal motor movements Historical tic disorder, unchanged from baseline Speech: normal rate/rhythm/volume of speech Historical stutter, unchanged from baseline Affect: + blunted affect Mood: no depressed mood ("Alright") Thought Process: goal directed thought process, clear/coherent thought process and + concrete thought process Thought Content: no delusions (No overt delusional beliefs reported) Reliability of information being relayed is questioned; however, responses are appropriate for questions being asked. No evidence of paranoia or delusional thought content. Suicidal Thoughts: denies suicidal thoughts Homicidal Thoughts: denies homicidal thoughts Hallucinations: no auditory hallucinations and no visual hallucinations Cognition: attention grossly intact and language grossly intact Insight: + limited insight Judgement: + fair judgement Vital Signs (Past 24 Hours) Last Vital Signs Temp 36.6 C 07/05/19 06:00 Pulse 112 H 07/05/19 06:43 Resp 19 07/05/19 06:00 BP 131/89 07/05/19 06:43 Pulse Ox 97 06/20/19 15:01 Results & Data Current Inpatient Medications Current Inpatient Medications: Current Inpatient Medications Acetaminophen (Tylenol) 650 mg PO Q4H PRN PRN Reason: Headache or Minor Fever Stop: 07/20/19 17:46 Last Admin: 06/27/19 11:01 Dose: 650 mg Documented by: Al Hydrox/Mg Hydrox/Simethicone (Maalox) 30 ml PO Q4H PRN PRN Reason: GI Upset Stop: 07/20/19 17:46 Benztropine Mesylate (Cogentin) 1 mg IM Q4H PRN PRN Reason: EPS Stop: 07/21/19 10:01 Benztropine Mesylate (Cogentin) 1 mg PO Q4H PRN PRN Reason: EPS Stop: 07/21/19 10:44 Bismuth Subsalicylate (Kaopectate) 15 ml PO PRN PRN PRN Reason: Loose Stool Stop: 07/20/19 17:46 Clozapine (Clozapine) 300 mg PO HS LINO Stop: 07/26/19 21:59 Last Admin: 07/04/19 21:22 Dose: 300 mg Documented by: Haloperidol (Haldol) 5 mg PO Q4H PRN PRN Reason: psychosis Stop: 07/20/19 17:49 Last Admin: 06/23/19 17:13 Dose: 5 mg Documented by: Haloperidol (Haldol) 5 mg PO HS LINO Stop: 08/04/19 21:59 Haloperidol (Haldol) 2.5 mg PO QAM LINO Stop: 08/05/19 08:59 Haloperidol Lactate (Haldol) 10 mg IM Q4H PRN PRN Reason: psychosis Stop: 07/21/19 09:59 Hydroxyzine HCl (Vistaril) 25 mg PO Q4H PRN PRN Reason: Anxiety Stop: 07/20/19 17:46 Hydroxyzine HCl (Vistaril) 50 mg PO HSZ PRN PRN Reason: Insomnia Stop: 07/20/19 17:46 Lorazepam (Ativan) 2 mg PO Q4H PRN PRN Reason: Anxiety Stop: 07/20/19 17:48 Last Admin: 06/22/19 06:47 Dose: 2 mg Documented by: Magnesium Hydroxide (Milk Of Magnesia) 30 ml PO DAILY PRN PRN Reason: Constipation Stop: 07/20/19 17:46 Miscellaneous (Ppd Check) 1 ea N/A ONE ONE Stop: 07/06/19 20:01 Sertraline HCl (Zoloft) 75 mg PO QAM LINO Stop: 07/21/19 08:59 Last Admin: 07/05/19 08:06 Dose: 75 mg Documented by: Sodium Chloride ([place] Nasal) 1 - 2 sprays NA PRN PRN PRN Reason: Nasal Dryness/Congestion Stop: 07/20/19 17:46 Mental Health & Subst Abuse Tx Psychiatrist Name of Psychiatrist: SUSANNAH Aguilar Psychiatrist's Date of Appointment with Psychiatrist: 07/13/19 Time of Appointment with Psychiatrist: 2:00 p.m. Psychiatric Appointment Comment: [address] [place] [address] Therapist Name of Therapist: [facility] Paxton Caceres Therapist's Date of Therapist Appointment: 07/19/19 Time of Therapist Appointment: 10:00 a.m. Therapy Appointment Comment: [address] [place] [address] Electromechanical Technologist Name of Electromechanical Technologist: LOGAN Pena Phone Number for Electromechanical Technologist: [phone] Date of Appointment with Electromechanical Technologist: 06/23/19 Time of Appointment with Electromechanical Technologist: 9:30 am Post Discharge Appointments Primary Care Physician Name Of Family Doctor: DEVYN Delgado Primary Care Provider Appointment Comment: [address] [place] [address] Specialist Name of Specialist: Deion Jackson Medication Management Paxton Saldana Phone Number for Specialist: [phone] Specialty Appointment Comment: Will see you in your home Contact Information Discharge Discharge Address: [facility] [place] CRR: [address] [place], [place] [address] [place]
[2019-07-05] MEDS: cloZAPine 100 MG TAB PO SCH (21:11)
[2019-07-06] MEDS: haloperidoL 5 MG TAB PO SCH ×2 (09:16→21:29)
[2019-07-06] MEDS: SERTRALINE HCL 50 MG TABLET PO SCH (09:16)
--- NOTE | 2019-07-06 11:14 | Psychiatric Progress Note ---
Date of Service July 06, 2019 Impression / Recommendations Tatianna Orosco is a 29-year-old [place] male who recently moved out of the [facility] into independent housing with roommates in [place], has a history of schizophrenia, depression, alcohol use disorder, and treatment nonadherence, and has had multiple hospitalizations in the past month in the context of his step down to less restrictive treatment. Both of his recent hospitalizations have been triggered by erratic, disorganized behavior in the community, including going out in public in the nude, threatening other people, and severely disorganized thinking and speech. The patient's strengths include the fact that he does respond favorably to psychiatric medications, and has been able to maintain a job, with a goal of finishing his undergraduate degree in the future. However, an overarching deficit is the fact that he is repeatedly nonadherent with psychiatric treatment, including psychiatric medications, and tends to decompensate quickly. These decompensations are associated with dangerous behaviors, both to self and others, that rise to the level of risk of imminent and serious physical harm. He has been resumed on home dose of sertraline 75mg, clozapine has been titrated to previous dosing of 300mg qHS, and Haldol decanoate started to target psychosis and with a goal of improving adherence, as has repeatedly been nonadherent with his clozapine (although it is effective when he takes it, for example in the hospital). He received Haldol Decanoate 25 mg on 06/24/19, 50 mg of Haldol Decanoate on 06/27, and 100mg on 07/04. He has a 304 involuntary outpatient hearing scheduled for 07/08/2019, after which he can be discharged to the [facility]. (1) Schizophrenia: 06/21 -re-titrate clozapine to home dose of 300 mg at bedtime. Consider adding Haldol Decanoate for augmentation and concerns for due to nonadherence with oral medications. -Haloperidol as needed has been beneficial, so we will continue, while scheduling 5 mg twice daily. -Lorazepam 2 mg p.o./IM every 4 hours as needed for psychosis/agitation. -Benztropine as needed for EPS. -Coordinate care with blended wrapper caser, and outpatient clinicians at [facility]. -Patient is giving inconsistent reports, but on presentation reported he had not been sleeping, which could explain some of his manic symptoms on presentation, as well as exacerbation of psychotic illness. Continue to assess and treat as necessary. 06/22 -continue medically necessary private room given degree of psychosis, disinhibition, sexually inappropriate behavior, and threats to others. -Continue clozapine titration and weekly CBC with differential. ANC 6.27 on 06/20/2019. Next CBC w/diff ordered for 07/04. -Continue haloperidol 5 mg twice daily, with 10 mg IM as needed. -Contact BCM for clarification of medication compliance at home, and roommates for clarification of threats he made to them prior to admission. -303 hearing scheduled for tomorrow. 06/23 - 303 commitment granted. - Continue current medications, and recommend Haldol decanoate if current dose if effective. - Meeting with [facility] to discuss treatment plan (AMAYA, KESHIA). - Coordinate care with Dr. Aguilar at [facility] to call speech and language clinician. 06/24 -Haldol appears to be effective and well-tolerated. -Haldol decanoate started today at a dose of 25 mg IM. A 50 mg dose of Haldol decanoate will be given IM in 3 days. -Oral haloperidol will be continued 5 mg twice a day, but will be tapered as clinically indicated, depending upon the patient's response to the above. -Clozapine will be increased to 200 mg at bedtime, and further titrations rossi l be made based on patient's clinical response. 06/25 - Continue current medication regimen - Order is scheduled for 50mg of haldol decanoate 50mg on 06/27; at which time we will reduce oral haloperidol dosing - Clozapine to be increased to 250mg this evening 06/26 - Continue current medication regimen; pt to receive 50mg of Haldol decanoate on 06/27 - Clozapine ordered to be maintained at 300mg qHS - CBC w/diff scheduled for tomorrow 06/27 - Continue clozapine 300mg qHS - continue weekly CBC with differential. ANC 3.54 on 06/27/2019 - Haldol decanoate 50mg was given this morning; oral haloperidol dosage reduced to 2.5mg BID starting this evening, tapering to discontinuation - Continue to explore available housing options that will provide patient with adequate support and supervision to reduce risk of harm to self or others - rn care manager to assist with CRR application, though unclear if there is bed availability 06/28 - Continue treatment plan as above 10/16 - Worsening of psychotic behavior was discussed - in light of likely discharge back to his apartment with additional support, history of medication noncompliance remains a large concern - Discussed optimizing patient's CONDE dosage in order to improve current behaviors, better maintain stability, and provide better overall coverage for likely oral medication noncompliance, with primary goal to prevent need for frequent readmissions - An additional dose of haloperidol decanoate 100mg has been ordered for 07/04 - as it is likely his current dosage is insufficient to achieve the goals stated above - Will titrate oral haloperidol back to 5mg BID in the interim - Continue to coordinate aftercare and discharge planning with patient's wrapper caser - Will plan to have patient call his place of employment with social work, as it is not clear he still has a job given behavior prior to admission - Will encourage staff to challenge patient's thought content and attempt to process his rationale for his behavior on the unit 06/30 - Continue treatment plan as outlined above - 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 -Our recommendation is that he limit his work day in the community to no more than 8-hour days and that he work no more than 32 hours a week. A letter to this effect has been written and signed by his physician. -The current plan is to convert the patient's involuntary commitment to outpatient commitment next week. -The patient met with his wrapper caser today and we have been told that there appears to be a vacancy in a residential rehabilitation program that we agree will be suitable to his clinical and safety needs. This option is currently being pursued. -An additional dose of Haldol decanoate 100 mg IM is ordered for 07/04/2019. His dose of oral haloperidol has been tapered and it is anticipated that it will be further tapered and possibly discontinued subsequent to his next dose of Haldol Decanoate. 07/02 and - no change in plan, see 07/01/19, watch asymptomatic tachycardia may be due to med combination as not happening on clozaril alone, and not listed SE of haldol decanoate, afebrile and no rigidity, but watch for rare but possible NMS 07/04 - Pt received haloperidol decanoate 100mg this morning - will taper oral haloperidol to 2.5mg qAM and 5mg qHS for several days - with further taper as tolerated - Asymptomatic tachycardia is ongoing with evidence of additional concerning symptoms at this time, will continue to monitor vitals - Pt to meet with [facility] practice representative today, possibility of an available bed sooner than initially anticipated 07/05 - Oral haloperidol reduced for tomorrow to 2.5mg qAM and 5mg qHS - planning to continue for several days to a week; continue taper as tolerated - Continue to explore possibility of CRR acceptance, as it is reported that beds are available - Continue to coordinate appropriate discharge and safety plan 07/06 -Continue taper off oral haloperidol. Haldol Decanoate 150 mg IM is due 08/01/2019. -File for 303 involuntary outpatient commitment with hearing to be held 07/08/2019 prior to discharge to the [facility]. -Staff to arrange outpatient appointments with therapist and psychiatrist. (2) Homicidal ideation: 06/21 -the petition from the patient's [facility] states he threatened to harm his roommates. Would recommend they be contacted to clarify the statements made in the housing situation, including whether the patient is even able to return to the apartment. 06/23 - SW unable to contact roommates as do not have contact information, but he did sign a release to contact his landlord. 06/24 -The patient is denying homicidal ideation and denies that he threatened his roommates. However, there is objective evidence that he did, in fact, make threats to cause serious physical harm to others prior to admission. 06/27 - Patient continues to deny HI 07/01 -This problem is considered resolved. (3) Depression: 06/21 -continue home dose of sertraline 75 mg daily. Continue to assess and monitor mood his psychosis improves. 06/24 - sertraline will be continued for depression and anxiety. 06/29 - Pt continues to state he is "happy" and a 06/23 on the unit - his affect continues to be noncongruent with reported mood 07/01 and 07/02 and 07/03/19 -The patient reports that his mood is good and he is not feeling depressed. His affect is euthymic. (4) Anxiety: 06/21 -patient reports episodic anxiety in the context of believing he lost his keys and wallet. As needed medications as above, continue sertraline as above. Once he is less psychotic, encourage group attendance and participation, work on healthy coping skills and behavioral techniques for managing anxiety. 06/14 -sertraline is being continued for both anxiety and depression. 07/01 and 07/02 and 07/03/19 -The patient continues to report that he is not feeling anxious, apart from what he considers to be "normal" anxiety regarding uncertainty regarding his community placement. (5) Alcohol use disorder: 06/21 -patient reports he drank to intoxication on his birthday several days prior to hospitalization. This likely contributed to decompensation. Once he is less psychotic, will engage in further discussion of the risks of substance abuse and recommendations for abstinence. 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 He is on a 303 involuntary commitment as of 06/23/2019. Chief Complaint "Good". Review of Systems Notes Denies daytime sedation and drooling, muscle tension/rigidity, and abnormal movements Sleep Information Total Hours of Sleep: 7 Sleep Comments: pt on q-15 minute checks Meal Information Percent Meal Consumed - Breakfast: 100 Percent Meal Consumed - Lunch: 100 Percent Meal Consumed - Dinner: 100 Nutrition Comment: pt. asleep Subjective Subjective Patient was seen & assessed and interval progress reviewed with treatment team. Staff report he has been going to groups, participating appropriately, and spending more time out of his room. He continues to talk to himself at times when walking in the hallways, but denies that he is responding to hallucinations. He has been compliant with medication, and met with his BCM yesterday regarding acceptance to the [facility]. Staff there had expressed concerns that he had only recently discharged from their facility, and treatment goals were discussed including more specific goals related to self-care (sleep, routine, eating), accountability to staff, meal planning (shopping and making his own food), practicing honest and open communication, mobile med management services, and encouraging trauma therapy. His BCM stated the patient admitted to her that he had been noncompliant with clozapine prior to this hospitalization. On my assessment today, he reports mood is "good," and answers "good" to every question regarding sleep, appetite, thoughts, and feelings about upcoming discharge. He denies hallucinations, paranoia, confusion, thoughts of harming himself or anyone else. He denies side effects to medications, and when asked about episodes of falling asleep during groups yesterday, he states that did happen, but has not been happening at other times. He feels his medications are helpful and is agreeing to continue them. When asked about his reports to his wrapper caser that he had been on compliant with clozapine prior to hospitalization, he denies saying this, and says that he had extra medications at home because he was filling prescriptions before they were actually due. Physical Exam Psychiatric Orientation: alert and cooperative Apperance: appropriately dressed, appropriately groomed and appeared stated age Eye Contact: + poor eye contact Motor Behavior: steady gait and station and no abnormal motor movements Speech: normal rate/rhythm/volume of speech (Stutter significantly increased when asked about his reports of medication nonadherence as an outpatient) Affect: + blunted affect; + mood not congruent with affect "Good." Thought Process: linear/logical thought process and + concrete thought process Paucity of thought content, minimization of behaviors prior to hospitalization, conflicting reports Suicidal Thoughts: denies suicidal thoughts Homicidal Thoughts: denies homicidal thoughts Hallucinations: no auditory hallucinations and no visual hallucinations Cognition: attention grossly intact and language grossly intact Insight: + impaired insight Judgement: + impaired judgement Vital Signs (Past 24 Hours) Last Vital Signs Temp 36.4 C L 07/06/19 06:40 Pulse 98 H 07/06/19 06:41 Resp 18 07/06/19 06:40 BP 143/98 H 07/06/19 06:41 Pulse Ox 97 06/20/19 15:01 Results & Data Current Inpatient Medications Current Inpatient Medications: Current Inpatient Medications Acetaminophen (Tylenol) 650 mg PO Q4H PRN PRN Reason: Headache or Minor Fever Stop: 07/20/19 17:46 Last Admin: 06/27/19 11:01 Dose: 650 mg Documented by: Al Hydrox/Mg Hydrox/Simethicone (Maalox) 30 ml PO Q4H PRN PRN Reason: GI Upset Stop: 07/20/19 17:46 Benztropine Mesylate (Cogentin) 1 mg IM Q4H PRN PRN Reason: EPS Stop: 07/21/19 10:01 Benztropine Mesylate (Cogentin) 1 mg PO Q4H PRN PRN Reason: EPS Stop: 07/21/19 10:44 Bismuth Subsalicylate (Kaopectate) 15 ml PO PRN PRN PRN Reason: Loose Stool Stop: 07/20/19 17:46 Clozapine (Clozapine) 300 mg PO HS [facility] Stop: 07/26/19 21:59 Last Admin: 07/05/19 21:11 Dose: 300 mg Documented by: Haloperidol (Haldol) 5 mg PO Q4H PRN PRN Reason: psychosis Stop: 07/20/19 17:49 Last Admin: 06/23/19 17:13 Dose: 5 mg Documented by: Haloperidol (Haldol) 5 mg PO HS [facility] Stop: 08/04/19 21:59 Last Admin: 07/05/19 21:11 Dose: 5 mg Documented by: [facility]id[facility] ([facility]) [facility] Stop: 08/05/19 08:59 Last Admin: 07/06/19 09:16 Dose: 2.5 mg Documented by: Haloperidol Lactate (Haldol) 10 mg IM Q4H PRN PRN Reason: psychosis Stop: 07/21/19 09:59 Hydroxyzine HCl (Vistaril) 25 mg PO Q4H PRN PRN Reason: Anxiety Stop: 07/20/19 17:46 Hydroxyzine HCl (Vistaril) 50 mg PO HSZ PRN PRN Reason: Insomnia Stop: 07/20/19 17:46 Lorazepam (Ativan) 2 mg PO Q4H PRN PRN Reason: Anxiety Stop: 07/20/19 17:48 Last Admin: 06/22/19 06:47 Dose: 2 mg Documented by: Magnesium Hydroxide (Milk Of Magnesia) 30 ml PO DAILY PRN PRN Reason: Constipation Stop: 07/20/19 17:46 Miscellaneous (Ppd Check) 1 ea N/A ONE ONE Stop: 07/06/19 20:01 Sertraline HCl (Zoloft) 75 mg PO QAM LINO Stop: 07/21/19 08:59 Last Admin: 07/06/19 09:16 Dose: 75 mg Documented by: Sodium Chloride ([place] Nasal) 1 - 2 sprays NA PRN PRN PRN Reason: Nasal Dryness/Congestion Stop: 07/20/19 17:46 Mental Health & Subst Abuse Tx Psychiatrist Name of Psychiatrist: SUSANNAH Aguilar Psychiatrist's Date of Appointment with Psychiatrist: 07/13/19 Time of Appointment with Psychiatrist: 2:00 p.m. Psychiatric Appointment Comment[facility] [address] [facility] [place] [address] Therapist Name of Therapist: SUSANNAH Caceres Therapist's Date of Therapist Appointment: 07/19/19 Time of Therapist Appointment: 10:00 a.m. Therapy Appointment Comment: [address] [facility] [place] [address] Government Affairs Fellow Name of Government Affairs Fellow: LOGAN Pena Phone Number for Government Affairs Fellow: [phone] Date of Appointment with Government Affairs Fellow: 07/11/19 Time of Appointment with Government Affairs Fellow: 10:00 a.m. Case Management Appointment Comment: Will come see you Post Discharge Appointments Primary Care Physician Name Of Family Doctor: DEVYN Delgado Primary Care Time of Appointment with PCP: Follow up as needed Provider Appointment Comment: [address] [place] [address] Specialist Name of Specialist: Deion Jackson Medication Management - Shana Phone Number for Specialist: [phone] Specialty Appointment Comment: Will see you in your home Contact Information Discharge Discharge Address: [facility]: [address] [place], [place]
[2019-07-06] MEDS ORDERED: PPD CHECK ONE (20:00)
[2019-07-06] MEDS: cloZAPine 100 MG TAB PO SCH (21:29)
[2019-07-07] MEDS: haloperidoL 5 MG TAB PO SCH (08:36)
[2019-07-07] MEDS: SERTRALINE HCL 50 MG TABLET PO SCH (08:36)
--- NOTE | 2019-07-07 10:41 | Psychiatric Progress Note ---
Date of Service July 07, 2019 Impression / Recommendations Tatianna Orosco is a 29-year-old [place]ien male who recently moved out of the [facility] into independent housing with roommates in [place], has a history of schizophrenia, depression, alcohol use disorder, and treatment nonadherence, and has had multiple hospitalizations in the past month in the context of his step down to less restrictive treatment. Both of his recent hospitalizations have been triggered by erratic, disorganized behavior in the community, including going out in public in the nude, threatening other people, and severely disorganized thinking and speech. The patient's strengths include the fact that he does respond favorably to psychiatric medications, and has been able to maintain a job, with a goal of finishing his undergraduate degree in the future. However, an overarching deficit is the fact that he is repeatedly nonadherent with psychiatric treatment, including psychiatric medications, and tends to decompensate quickly. These decompensations are associated with dangerous behaviors, both to self and others, that rise to the level of risk of imminent and serious physical harm. He has been resumed on home dose of sertraline 75mg, clozapine has been titrated to previous dosing of 300mg qHS, and Haldol decanoate started to target psychosis and with a goal of improving adherence, as has repeatedly been nonadherent with his clozapine (although it is effective when he takes it, for example in the hospital). He received Haldol Decanoate 25 mg on 06/24/19, 50 mg on 06/27, and 100mg on 07/04. He has a 304 involuntary outpatient hearing scheduled for 07/08/2019, after which he will be discharged to the [facility]. (1) Schizophrenia: 06/21 -re-titrate clozapine to home dose of 300 mg at bedtime. Consider adding Haldol Decanoate for augmentation and concerns for due to nonadherence with oral medications. -Haloperidol as needed has been beneficial, so we will continue, while scheduling 5 mg twice daily. -Lorazepam 2 mg p.o./IM every 4 hours as needed for psychosis/agitation. -Benztropine as needed for EPS. -Coordinate care with blended case manager specialist, and outpatient clinicians at [facility]. -Patient is giving inconsistent reports, but on presentation reported he had not been sleeping, which could explain some of his manic symptoms on presentation, as well as exacerbation of psychotic illness. Continue to assess and treat as necessary. 06/22 -continue medically necessary private room given degree of psychosis, disinhibition, sexually inappropriate behavior, and threats to others. -Continue clozapine titration and weekly CBC with differential. ANC 6.27 on 06/20/2019. Next CBC w/diff ordered for 07/04. -Continue haloperidol 5 mg twice daily, with 10 mg IM as needed. -Contact [facility] for clarification of medication compliance at home, and roommates for clarification of threats he made to them prior to admission. -303 hearing scheduled for tomorrow. 06/23 - 303 commitment granted. - Continue current medications, and recommend Haldol decanoate if current dose if effective. - Meeting with [facility] to discuss treatment plan (AMAYA, KESHIA). - Coordinate care with Dr. Aguilar at [facility] to call home health clinician. 06/24 -Haldol appears to be effective and well-tolerated. -Haldol decanoate started today at a dose of 25 mg IM. A 50 mg dose of Haldol decanoate will be given IM in 3 days. -Oral haloperidol will be continued 5 mg twice a day, but will be tapered as clinically indicated, depending upon the patient's response to the above. -Clozapine will be increased to 200 mg at bedtime, and further titrations will be made based on patient's clinical response. 06/25 - Continue current medication regimen - Order is scheduled for 50mg of haldol decanoate 50mg on 06/27; at which time we will reduce oral haloperidol dosing - Clozapine to be increased to 250mg this evening 06/26 - Continue current medication regimen; pt to receive 50mg of Haldol decanoate on 06/27 - Clozapine ordered to be maintained at 300mg qHS - CBC w/diff scheduled for tomorrow 06/27 - Continue clozapine 300mg qHS - continue weekly CBC with differential. ANC 3.54 on 06/27/2019 - Haldol decanoate 50mg was given this morning; oral haloperidol dosage reduced to 2.5mg BID starting this evening, tapering to discontinuation - Continue to explore available housing options that will provide patient with adequate support and supervision to reduce risk of harm to self or others - manager long term care to assist with CRR application, though unclear if there is bed availability 06/28 - Continue treatment plan as above 06/29 - Worsening of psychotic behavior was discussed - in light of likely discharge back to his apartment with additional support, history of medication noncompliance remains a large concern - Discussed optimizing patient's CONDE dosage in order to improve current behaviors, better maintain stability, and provide better overall coverage for likely oral medication noncompliance, with primary goal to prevent need for frequent readmissions - An additional dose of haloperidol decanoate 100mg has been ordered for 07/04 - as it is likely his current dosage is insufficient to achieve the goals stated above - Will titrate oral haloperidol back to 5mg BID in the interim - Continue to coordinate aftercare and discharge planning with patient's case manager specialist - Will plan to have patient call his place of employment with social work, as it is not clear he still has a job given behavior prior to admission - Will encourage staff to challenge patient's thought content and attempt to process his rationale for his behavior on the unit 06/30 - Continue treatment plan as outlined above - 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 -Our recommendation is that he limit his work day in the community to no more than 8-hour days and that he work no more than 32 hours a week. A letter to this effect has been written and signed by his physician. -The current plan is to convert the patient's involuntary commitment to outpatient commitment next week. -The patient met with his case manager specialist today and we have been told that there appears to be a vacancy in a residential rehabilitation program that we agree will be suitable to his clinical and safety needs. This option is currently being pursued. -An additional dose of Haldol decanoate 100 mg IM is ordered for 07/04/2019. His dose of oral haloperidol has been tapered and it is anticipated that it will be further tapered and possibly discontinued subsequent to his next dose of Haldol Decanoate. 07/02 and - no change in plan, see 07/01/19, watch asymptomatic tachycardia may be due to med combination as not happening on clozaril alone, and not listed SE of haldol decanoate, afebrile and no rigidity, but watch for rare but possible NMS 07/04 - Pt received haloperidol decanoate 100mg this morning - will taper oral haloperidol to 2.5mg qAM and 5mg qHS for several days - with further taper as tolerated - Asymptomatic tachycardia is ongoing with evidence of additional concerning symptoms at this time, will continue to monitor vitals - Pt to meet with [facility] [place] [place] [facility] correspondence representative today, possibility of an available bed sooner than initially anticipated 07/05 - Oral haloperidol reduced for tomorrow to 2.5mg qAM and 5mg qHS - planning to continue for several days to a week; continue taper as tolerated - Continue to explore possibility of CRR acceptance, as it is reported that beds are available - Continue to coordinate appropriate discharge and safety plan 07/06 -Continue taper off oral haloperidol. Haldol Decanoate 150 mg IM is due 08/01/2019. -File for 303 involuntary outpatient commitment with hearing to be held 07/08/2019 prior to discharge to the [facility] [place] [place] [facility]. -Staff to arrange outpatient appointments with therapist and psychiatrist. 07/07 - Discontinue oral Haldol in preparation for discharge tomorrow. Although the patient denies problematic side effects, staff have observed him at times falling asleep during the day and drooling, and hopefully these will improve with reduced antipsychotic load. (2) Homicidal ideation: 06/21 -the petition from the patient's [facility] states he threatened to harm his roommates. Would recommend they be contacted to clarify the statements made in the housing situation, including whether the patient is even able to return to the apartment. 06/23 - SW unable to contact roommates as do not have contact information, but he did sign a release to contact his landlord. 06/24 -The patient is denying homicidal ideation and denies that he threatened his roommates. However, there is objective evidence that he did, in fact, make threats to cause serious physical harm to others prior to admission. 06/27 - Patient continues to deny HI 07/01 -This problem is considered resolved. (3) Depression: 06/21 -continue home dose of sertraline 75 mg daily. Continue to assess and monitor mood his psychosis improves. 06/24 - sertraline will be continued for depression and anxiety. 06/29 - Pt continues to state he is "happy" and a 06/23 on the unit - his affect continues to be noncongruent with reported mood 07/01 and 07/02 and 07/03/19 -The patient reports that his mood is good and he is not feeling depressed. His affect is euthymic. (4) Anxiety: 06/21 -patient reports episodic anxiety in the context of believing he lost his keys and wallet. As needed medications as above, continue sertraline as above. Once he is less psychotic, encourage group attendance and participation, work on healthy coping skills and behavioral techniques for managing anxiety. 06/14 -sertraline is being continued for both anxiety and depression. 07/01 and 07/02 and 07/03/19 -The patient continues to report that he is not feeling anxious, apart from what he considers to be "normal" anxiety regarding uncertainty regarding his community placement. (5) Alcohol use disorder: 06/21 -patient reports he drank to intoxication on his birthday several days prior to hospitalization. This likely contributed to decompensation. Once he is less psychotic, will engage in further discussion of the risks of substance abuse and recommendations for abstinence. 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 He is on a 303 involuntary commitment as of 06/23/2019. Chief Complaint "Good". Review of Systems Sleep Information Total Hours of Sleep: 8.5 Sleep Comments: pt on q-15 minute checks Meal Information Percent Meal Consumed - Breakfast: 100 Percent Meal Consumed - Lunch: 100 Percent Meal Consumed - Dinner: 100 Nutrition Comment: pt. asleep Subjective Subjective Patient was seen & assessed and interval progress reviewed with nursing and social work. The patient reports he is doing well, describes mood, sleep, and appetite as "good," and denies problematic side effects to medications, in cluding daytime sedation, muscle stiffness or abnormal movements,. He feels his medications are working, and feels ready for discharge to the [facility] tomorrow. Physical Exam Psychiatric Orientation: alert, oriented x 3 and cooperative Apperance: appropriately dressed, appropriately groomed and appeared stated age Eye Contact: + fair eye contact Motor Behavior: steady gait and station and no abnormal motor movements Stuttering Affect: + blunted affect Mood: no depressed mood and no anxious mood "Good." Thought Process: goal directed thought process and + concrete thought process Short answers Suicidal Thoughts: denies suicidal thoughts Homicidal Thoughts: denies homicidal thoughts Hallucinations: no auditory hallucinations and no visual hallucinations Cognition: recent memory grossly intact, attention grossly intact and language grossly intact Insight: + fair insight Judgement: + fair judgement Vital Signs (Past 24 Hours) Last Vital Signs Temp 36.7 C 07/07/19 06:42 Pulse 111 H 07/07/19 06:43 Resp 18 07/07/19 06:42 BP 132/89 07/07/19 06:43 Pulse Ox 97 06/20/19 15:01 Results & Data Current Inpatient Medications Current Inpatient Medications: Current Inpatient Medications Acetaminophen (Tylenol) 650 mg PO Q4H PRN PRN Reason: Headache or Minor Fever Stop: 07/20/19 17:46 Last Admin: 06/27/19 11:01 Dose: 650 mg Documented by: Al Hydrox/Mg Hydrox/Simethicone (Maalox) 30 ml PO Q4H PRN PRN Reason: GI Upset Stop: 07/20/19 17:46 Benztropine Mesylate (Cogentin) 1 mg IM Q4H PRN PRN Reason: EPS Stop: 07/21/19 10:01 Benztropine Mesylate (Cogentin) 1 mg PO Q4H PRN PRN Reason: EPS Stop: 07/21/19 10:44 Bismuth Subsalicylate (Kaopectate) 15 ml PO PRN PRN PRN Reason: Loose Stool Stop: 07/20/19 17:46 Clozapine (Clozapine) 300 mg PO HS LINO Stop: 07/26/19 21:59 Last Admin: 07/06/19 21:29 Dose: 300 mg Documented by: Haloperidol (Haldol) 5 mg PO Q4H PRN PRN Reason: psychosis Stop: 07/20/19 17:49 Last Admin: 06/23/19 17:13 Dose: 5 mg Documented by: Haloperidol (Haldol) 5 mg PO HS LINO Stop: 08/04/19 21:59 Last Admin: 07/06/19 21:29 Dose: 5 mg Documented by: Haloperidol (Haldol) 2.5 mg PO QAM LINO Stop: 08/05/19 08:59 Last Admin: 07/07/19 08:36 Dose: 2.5 mg Documented by: Haloperidol Lactate (Haldol) 10 mg IM Q4H PRN PRN Reason: psychosis Stop: 07/21/19 09:59 Hydroxyzine HCl (Vistaril) 25 mg PO Q4H PRN PRN Reason: Anxiety Stop: 07/20/19 17:46 Hydroxyzine HCl (Vistaril) 50 mg PO HSZ PRN PRN Reason: Insomnia Stop: 07/20/19 17:46 Lorazepam (Ativan) 2 mg PO Q4H PRN PRN Reason: Anxiety Stop: 07/20/19 17:48 Last Admin: 06/22/19 06:47 Dose: 2 mg Documented by: Magnesium Hydroxide (Milk Of Magnesia) 30 ml PO DAILY PRN PRN Reason: Constipation Stop: 07/20/19 17:46 Sertraline HCl (Zoloft) 75 mg PO QAM LINO Stop: 07/21/19 08:59 Last Admin: 07/07/19 08:36 Dose: 75 mg Documented by: Sodium Chloride ([place] Nasal) 1 - 2 sprays NA PRN PRN PRN Reason: Nasal Dryness/Congestion Stop: 07/20/19 17:46 Mental Health & Subst Abuse Tx Psychiatrist Name of Psychiatrist: MADISON Paxton Aguilar Psychiatrist's Date of Appointment with Psychiatrist: 07/13/19 Time of Appointment with Psychiatrist: 2:00 p.m. Psychiatric Appointment Comment: [address] [facility] [place] [address] Therapist Name of Therapist: SUSANNAH Caceres Therapist's Date of Therapist Appointment: 07/19/19 Time of Therapist Appointment: 10:00 a.m. Therapy Appointment Comment: [address] [place] [place] [address] Correspondence Representative Name of Correspondence Representative: LOGAN Pena Phone Number for Correspondence Representative: [phone] Date of Appointment with Correspondence Representative: 07/11/19 Time of Appointment with Correspondence Representative: 10:00 a.m. Case Management Appointment Comment: Will come see you Post Discharge Appointments Primary Care Physician Name Of Family Doctor: DEVYN - Dr. Duane Delgado Primary Care Time of Appointment with PCP: Follow up as needed Provider Appointment Comment: [address], [place] [address] Specialist Name of Specialist: Deion Jackson Medication Management Paxton Saldana Phone Number for Specialist: [phone] Specialty Appointment Comment: Will see you in your home Contact Information Discharge Discharge Address: [facility] [place] [place] CR[facility]: [facility] [address], [place], [place]
[2019-07-07] MEDS: cloZAPine 100 MG TAB PO SCH (20:49)
[2019-07-08 07:02] VITALS: BP 133/95; TEMP 97.9
[2019-07-08] MEDS: SERTRALINE HCL 50 MG TABLET PO SCH (08:14)
[2019-07-08 09:57] VITALS: PULSE 101
--- NOTE | 2019-07-08 13:18 | Discharge Summary ---
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 due 08/01/2019. -File for 303 involuntary outpatient commitment with hearing to be held 07/08/2019 prior to discharge to the [facility] -Staff to arrange outpatient appointments with therapist and psychiatrist. 07/07 - Discontinue oral Haldol in preparation for discharge tomorrow. Although the patient denies problematic side effects, staff have observed him at times falling asleep during the day and drooling, and hopefully these will improve with reduced antipsychotic load. 07/08 -304 petition for outpatient commitment granted today. Patient is currently devoid of any psychotic symptoms and it is both pleasant and cooperative with treatment. At this point, we are in agreement that he is prepared to safely continue his treatment on an outpatient basis. (2) Homicidal ideation: 06/21 -the petition from the patient's [facility] states he threatened to harm his roommates. Would recommend they be contacted to clarify the statements made in the housing situation, including whether the patient is even able to return to the apartment. 06/23 - SW unable to contact roommates as do not have contact information, but he did sign a release to contact his landlord. 06/24 -The patient is denying homicidal ideation and denies that he threatened his roommates. However, there is objective evidence that he did, in fact, make threats to cause serious physical harm to others prior to admission. 06/27 - Patient continues to deny HI 07/01 -This problem is considered resolved. (3) Depression: 06/21 -continue home dose of sertraline 75 mg daily. Continue to assess and monitor mood his psychosis improves. 06/24 - sertraline will be continued for depression and anxiety. 06/29 - Pt continues to state he is "happy" and a 06/23 on the unit - his affect continues to be noncongruent with reported mood 07/01 and 07/02 and 07/03/19 -The patient reports that his mood is good and he is not feeling depressed. His affect is euthymic. 07/08 -The patient reports that he feels that he is responded favorably to treatment and is no longer feeling depressed. His affect remains euthymic. He reports that he is not having any thoughts of suicide, nor does he have any thoughts of homicide. Patient is also future oriented and is able to talk about his plans for returning to work and for his new community placement. (4) Anxiety: 06/21 -patient reports episodic anxiety in the context of believing he lost his keys and wallet. As needed medications as above, continue sertraline as above. Once he is less psychotic, encourage group attendance and participation, work on healthy coping skills and behavioral techniques for managing anxiety. 06/14 -sertraline is being continued for both anxiety and depression. 07/01 and 07/02 and 07/03/19 -The patient continues to report that he is not feeling anxious, apart from what he considers to be "normal" anxiety regarding uncertainty regarding his community placement. 07/08 -Patient reports that he is feeling somewhat anxious about his community placement, but, as described, of the anxiety appears to be reasonable and appropriate given the fact that he will be moving to a new living environments and he recognizes that there will likely be certain adjustments. (5) Alcohol use disorder: 06/21 -patient reports he drank to intoxication on his birthday several days prior to hospitalization. This likely contributed to decompensation. Once he is less psychotic, will engage in further discussion of the risks of s ubstance abuse and recommendations for abstinence. 07/08 -The patient has been counseled throughout his stay regarding the risks of consuming intoxicated beverages and other drugs of abuse while in psychiatric treatment. The patient indicates understanding and commits to sobriety. Mental Health & Subst Abuse Tx Psychiatrist Name of Psychiatrist: SUSANNAH Aguilar Psychiatrist's Date of Appointment with Psychiatrist: 07/13/19 Time of Appointment with Psychiatrist: 2:00 p.m. Psychiatric Appointment Comment[facility] [address] [facility] [place] [address] Psychiatrist Release of Information: Obtained, Reviewed and Signed Therapist Name of Therapist: SUSANNAH Caceres Therapist's Date of Therapist Appointment: 07/19/19 Time of Therapist Appointment: 10:00 a.m. Therapy Appointment Comment: [address] [facility] [place] [address] Therapist Release of Information: Obtained, Reviewed and Signed Senior Materials Analyst Name of Senior Materials Analyst: LOGAN Pena Phone Number for Senior Materials Analyst: [phone] Date of Appointment with Senior Materials Analyst: 07/11/19 Time of Appointment with Senior Materials Analyst: 10:00 a.m. Case Management Appointment Comment: Will come see you Senior Materials Analyst Release of Information: Obtained, Reviewed and Signed Post Discharge Appointments Primary Care Physician Name Of Family Doctor: DEVYN Delgado Primary Care Time of Appointment with PCP: Follow up as needed Provider Appointment Comment: [address], [place] [address] Primary Care Release of Information: Obtained, Reviewed and Signed Specialist Name of Specialist: ANDREW ALVARADO Phone Number for Specialist: [phone] Specialty Appointment Comment: Will see you in your home health provider Release of Information: Obtained, Reviewed and Signed Smoking Cessation Counseling Tobacco Cessation Medication Prescribed at Discharge: Not Applicable/Non-Smoker Contact Information Discharge Discharge Address: [facility] [place] Dis[facility] Plan Discharge Items Patient Disposition: Personal Shelter Reason For Visit: SCHIZOPHRENIA Discharge Diagnosis: Schizophrenia Activity: Resume your previous activity Non-emergency contact: Primary Care Provider, Psychiatrist, Therapist and Advertising Assistant Call non-emergency contact if: you have any medication questions and your symptoms worsen Follow-up/Referrals: Duane Delgado MD [Primary Care Provider] - Diet: Regular Addtl Attending Provider Instructions: Limit your hours of work, as determined. Make time for your treatment. Pending Studies at Discharge: No Stand-Alone Forms: [employer], Smoking Cessation, Suicide Prevention Resources Skilled Items Patient informed of condition?: Yes DNR: No Discharge Level of Care: Acute rehab Communicable Disease: No Discharge Prognosis: Stable Lines: None Urinary Catheter: No Medications and DC Order Prescriptions: New clozapine 100 mg Tablet 300 mg PO HS Qty: 90 RF: 0 sertraline 50 mg Tablet 75 mg PO QAM Qty: 45 RF: 0 haloperidol decanoate [Haldol Decanoate] 100 mg/mL solution 150 mg IM Q4WK Qty: 5 RF: 0 Discontinued sertraline 50 mg tablet 75 mg PO DAILY RF: 0 clozapine 100 mg Tablet 300 mg PO HS Qty: 90 RF: 0 Discharge Orders: Discharge Order (Routine); Ordered 07/08/19 Ordered By: Waylon Shen Admission Data Admit Date/Time: 06/20/19 17:47 Attending Provider: Debbi Escobedo Admit Provider: Gabbi Vale Primary Care Provider: Duane Delgado Other Interventions: Discharge Summary Assessment (RN) Last Done: 07/08/19 09:56 PSY Interdisciplinary Discharge Planning Last Done: 07/08/19 09:55 DC Date/Time DO NOT enter until pt leaves facility: 07/08/19 10:23 Coding Level of Care Code 55453 D/C day mgmt > 30 min Diagnoses Schizophrenia F20.9 Homicidal ideation R45.850 Depression F32.9 Anxiety F41.9 Alcohol use disorder
== END 2019-07-08 10:23 | disposition home or self-care (01) | DRG 885 ==
LOC: ED 14:57 → 3S 17:47

== ENCOUNTER 2021-11-08 14:19 | Inpatient (IN) ==
[2021-11-08 14:57] LABS: Basophils # (auto) 0.05 K/uL (0-0.2); Basophils % (auto) 0.6 %; Eosinophils # (auto) 0.26 K/uL (0-0.5); Eosinophils % (auto) 3.4 %; Hematocrit (blood only) 42.2 % (42-52); Hemoglobin 14.7 g/dL (14.0-18.0); Immature Granulocytes # (auto) 0.01 K/uL (0.00-0.02); Immature Granulocytes % (auto) 0.1 %; Lymphocytes # (auto) 2.63 K/uL (1.2-3.4); Lymphocytes % (auto) 34.2 %; Mean Corpuscular Hemoglobin 30.8 pg (25-34); Mean Corpuscular Hgb Conc 34.8 g/dL (32-36); Mean Corpuscular Volume 88.3 fL (80-100); Mean Platelet Volume 10.4 fL (7.4-10.4); Monocytes # (auto) 0.56 K/uL (0.11-0.59); Monocytes % (auto) 7.3 %; Neutrophils # (auto) 4.19 K/uL (1.4-6.5); Neutrophils % (auto) 54.4 %; Platelet Count 343 K/uL (130-400); RDW Standard Deviation 41.4 fL (36.4-46.3); Red Blood Count 4.78 M/uL (4.7-6.1)
--- NOTE | 2021-11-08 15:01 | Emergency Department Note ---
Impression & Plan Schizophrenia ADMIT ED Provider Note HPI: The patient is a 31-year-old male with history of schizophrenia, presents the emergency department today with erratic behavior, brought in by police under 302. Patient was reportedly at his apartment complex, he was displaying some odd behavior and is concerned someone else in the complex and the police were contacted. Patient reportedly was suicidal when the police arrived, stated that he took "a bottle of sleeping pills" and also stated that he stabbed himself (there is no evidence of this on physical exam) and also stated that he ate a bottle. Patient is disorganized on arrival, he is unable to provide me with much coherent history, states he was worried that he was going to " from Covid" and therefore he was panicking outside of his apartment complex which he believes might have "threatened some people".He is physically in no acute distress on my initial evaluation, he is saturating well on room air, he is cooperative with history. ROS: - Psychiatric: Disorganized thought process, suicidal threats/ideations *10 point review systems was conducted and is otherwise negative unless stated above *Outpatient medications and allergy history reviewed PE: General: Alert, NAD HEENT: Normocephalic, atraumatic Eyes: Extraocular eye movement is intact, no scleral erythema Pulmonary: No increased work of breathing or tachypnea Cardio: Patient appears well perfused, no cyanosis GI: Abdomen is Nondistended : Deferred MSK: No evidence of trauma or malformation of the extremities, no edema Skin: No evidence of rash Neuro: Alert, no focal deficits Psychiatric: Patient exhibits a disorganized thought process, difficult historian,Not aggressive Medical Decision Making: Patient presented to the emergency department as a 302 via police, he has been exhibiting erratic behavior in the community, was stating that he was having thoughts of wanting to kill himself and was asking the police to shoot him.Patient does have a history of schizophrenia listed in his chart, I suspect that this is a disorganized schizophrenic break of some sort. He is calm and cooperative here in the ED but he is a difficult historian, does appear to be responding to some internal stimuli on my exam. Patient was medically cleared for case management evaluation and psychiatric evaluation. In regards to this possible ingestion of "sleeping pills" there is no evidence of this, patient also mentioned that he swallowed a bottle and there is no evidence of this that we can ascertain.He is not a reliable historian and his story changes quite frequently. He is a very tangential thought process. He tells me today that he was Worried that he was going to " from Covid", he was tested for COVID-19 and this was negative in the ED. He is remained alert and in no acute distress throughout his stay here in the ED. He was given a dose of p.o. Haldol at the request of the admitting team from psychiatry. Patient remained stable while here in the ED under our care, he was eventually accepted to [facility] for inpatient psychiatric care. Patient was transferred to [facility] in stable condition under 302 admission. Diagnosis: 1. Schizophrenia, disorganized 2. Suicidal threats 3. 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 Eosinophilia Homicidal ideation Knee pain Metabolic encephalopathy Mood disorder Normocytic anemia Schizophrenia Sinus tachycardia Sleep deprivation Somnolence Suicide attempt Weakness generalized Surgical History No history of previous surgery Family History Denies family history of Colon cancer Ovarian cancer Prostate cancer Myocardial infarction Breast cancer Social History Smoking Status: Never smoker Cigarettes Per Day: Patient unresponsive at this time; Hx Alcohol Use: No Hx Substance Use: No Preferred Language: Frisian Communication Ability: Effective Visual Impairment: No Limitations Hearing Ability: Normal 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: No Beliefs That Will Affect Care: None marital status: Single Current Living Situation: Other Current Living Situation Comment: Apartment , see ED admission report current occupational status: employed Feels Safe at Home: Yes Childhood Exposure to Second-Hand Smoke: No Dental Care, Regularly: No Physical Activity Frequency: Does not Exercise Seatbelt Use: always Sunscreen Use: No Assistive Devices: None Allergies Allergies Allergy/AdvReac Type Severity Reaction Status Date / Time meloxicam AdvReac blurred Verified 08/01/21 11:24 vision naproxen AdvReac blurred Verified 08/01/21 11:24 vision Home Meds Home Medications Medication Instructions Recorded Confirmed clozapine 100 mg tablet 50 mg PO HS 04/22/21 11/08/21 haloperidol decanoate 100 mg/mL 150 mg IM Q4WK 04/22/21 11/08/21 intramuscular solution Results & Data (ED) Vital Signs Vital Signs - 24 hr 11/08/21 14:14 Temperature 37.5 C Temperature Source Oral Pulse Rate 80 Pulse Rate [Finger] 80 Pulse Rhythm Regular Pulse Strength Normal Respiratory Rate 19 Respiratory Effort / Characteristics Non-Labored Respiratory Depth Normal Respiratory Pattern Regular Blood Pressure 138/91 Blood Pressure [Left Arm] 138/91 Blood Pressure Mean 106 Blood Pressure Mean [Left Arm] 106 Blood Pressure Position Sitting Pulse Oximetry 97 Oxygen Delivery Method Room Air Sepsis Recent Fever Within 48 Hours No Sepsis New/Unexplained Change in Mental Status N/A Sepsis Action Taken by Nursing No Action Required Laboratory Data Result diagrams: 11/08/21 14:45 11/08/21 14:45 Lab Results 11/08/21 11/08/21 11/08/21 Range/Units 14:45 14:45 14:45 WBC 7.70 (4.8-10.8) K/uL RBC 4.78 (4.7-6.1) M/uL Hgb 14.7 (14.0-18.0) g/dL Hct 42.2 (42-52) % MCV 88.3 (80-100) fL MCH 30.8 (25-34) pg MCHC 34.8 (32-36) g/dL RDW Std Deviation 41.4 (36.4-46.3) fL RDW Coeff of Tawanna 13.0 (11.5-14.5) % Plt Count 343 (130-400) K/uL MPV 10.4 (7.4-10.4) fL Immature Gran % (Auto) 0.1 % Neut % (Auto) 54.4 % Lymph % (Auto) 34.2 % [place] % (Auto) 7.3 % Eos % (Auto) 3.4 % Baso % (Auto) 0.6 % Neut # (Auto) 4.19 (1.4-6.5) K/uL Lymph # (Auto) 2.63 (1.2-3.4) K/uL [place] # (Auto) 0.56 (0.11-0.59) K/uL Eos # (Auto) 0.26 (0-0.5) K/uL Baso # (Auto) 0.05 (0-0.2) K/uL Immature Gran # (Auto) 0.01 (0.00-0.02) K/uL Sodium 138 (136-145) mmol/L Potassium 3.4 L (3.5-5.1) mmol/L Chloride 103 (98-107) mmol/L Carbon Dioxide 30 (21-32) mmol/L Anion Gap 5 (3-11) BUN 11 (6-23) mg/dl Creatinine 1.01 (0.6-1.4) mg/dl Est Cr Clr Drug Dosing 116.6 ml/min Est GFR ( Amer) 116.0 ml/min Est GFR (Non-Af Amer) 100.0 ml/min BUN/Creatinine Ratio 10.9 (10-20) Glucose 93 (70-99(Fasting)) mg/dl Calcium 9.3 (8.5-10.1) mg/dl Total Bilirubin 0.5 (0.2-1.0) mg/dl AST 26 (13-39) U/L ALT 23 (7-52) U/L Alkaline Phosphatase 62 (34-104) U/L Total Protein 7.9 (6.0-8.3) gm/dl Albumin 4.4 (3.4-5.0) gm/dl Globulin 3.5 (2.5-4.0) gm/dl Albumin/Globulin Ratio 1.3 (0.9-2) TSH 1.042 (0.300-4.500) uIu/ml Urine Color Urine Appearance (Clear) Urine pH (4.5-7.5) Ur Specific [place] (1.000-1.030) Urine Protein (Negative) Urine Glucose (UA) (Negative) Urine Ketones (Negative) Urine Blood (Negative) Urine Nitrite (Negative) Urine Bilirubin (Negative) Urine Urobilinogen (Negative) Ur Leukocyte Esterase (Negative) Urine WBC (Auto) (0-5) /hpf Urine RBC (Auto) (0-4) /hpf U Hyaline Cast (Auto) (0-5) /lpf U Epithel Cells (Auto) (0-5) /lpf Urine Bacteria (Auto) (Negative) Salicylates (3.0-30) mg/dl Urine Opiates Screen (Neg) Ur Methadone, Qual (Neg) Acetaminophen (10-30) ug/ml Urine Barbiturates (Neg) Ur Phencyclidine (PCP) (Neg) U Amphetamin/Meth Scrn (Neg) MDMA (Ecstasy) Screen (Neg) U Benzodiazepines Scrn (Neg) Ur Cocaine Metabolite (Neg) U Marijuana (THC) Screen (Neg) Ethyl Alcohol mg/dL (<10.0) mg/dl SARS-CoV-2, RNA, NAAT (NEGATIVE) 11/08/21 11/08/21 11/08/21 Range/Units 14:45 14:45 15:06 WBC (4.8-10.8) K/uL RBC (4.7-6.1) M/uL Hgb (14.0-18.0) g/dL Hct (42-52) % MCV (80-100) fL MCH (25-34) pg MCHC (32-36) g/dL RDW Std Deviation (36.4-46.3) fL RDW Coeff of Tawanna (11.5-14.5) % Plt Count (130-400) K/uL MPV (7.4-10.4) fL Immature Gran % (Auto) % Neut % (Auto) % Lymph % (Auto) % [place] % (Auto) % Eos % (Auto) % Baso % (Auto) % Neut # (Auto) (1.4-6.5) K/uL Lymph # (Auto) (1.2-3.4) K/uL [place] # (Auto) (0.11-0.59) K/uL Eos # (Auto) (0-0.5) K/uL Baso # (Auto) (0-0.2) K/uL Immature Gran # (Auto) (0.00-0.02) K/uL Sodium (136-145) mmol/L Potassium (3.5-5.1) mmol/L Chloride (98-107) mmol/L Carbon Dioxide (21-32) mmol/L Anion Gap (3-11) BUN (6-23) mg/dl Creatinine (0.6-1.4) mg/dl Est Cr Clr Drug Dosing ml/min Est GFR ( Amer) ml/min Est GFR (Non-Af Amer) ml/min BUN/Creatinine Ratio (10-20) Glucose (70-99(Fasting)) mg/dl Calcium (8.5-10.1) mg/dl Total Bilirubin (0.2-1.0) mg/dl AST (13-39) U/L ALT (7-52) U/L Alkaline Phosphatase (34-104) U/L Total Protein (6.0-8.3) gm/dl Albumin (3.4-5.0) gm/dl Globulin (2.5-4.0) gm/dl Albumin/Globulin Ratio (0.9-2) TSH (0.300-4.500) uIu/ml Urine Color Urine Appearance (Clear) Urine pH (4.5-7.5) Ur Specific [place] (1.000-1.030) Urine Protein (Negative) Urine Glucose (UA) (Negative) Urine Ketones (Negative) Urine Blood (Negative) Urine Nitrite (Negative) Urine Bilirubin (Negative) Urine Urobilinogen (Negative) Ur Leukocyte Esterase (Negative) Urine WBC (Auto) (0-5) /hpf Urine RBC (Auto) (0-4) /hpf U Hyaline Cast (Auto) (0-5) /lpf U Epithel Cells (Auto) (0-5) /lpf Urine Bacteria (Auto) (Negative) Salicylates < 3.0 L (3.0-30) mg/dl Urine Opiates Screen (Neg) Ur Methadone, Qual (Neg) Acetaminophen < 3 L (10-30) ug/ml Urine Barbiturates (Neg) Ur Phencyclidine (PCP) (Neg) U Amphetamin/Meth Scrn (Neg) MDMA (Ecstasy) Screen (Neg) U Benzodiazepines Scrn (Neg) Ur Cocaine Metabolite (Neg) U Marijuana (THC) Screen (Neg) Ethyl Alcohol mg/dL < 10.0 (<10.0) mg/dl SARS-CoV-2, RNA, NAAT NEGATIVE (NEGATIVE) 11/08/21 11/08/21 Range/Units 16:15 16:15 WBC (4.8-10.8) K/uL RBC (4.7-6.1) M/uL Hgb (14.0-18.0) g/dL Hct (42-52) % MCV (80-100) fL MCH (25-34) pg MCHC (32-36) g/dL RDW Std Deviation (36.4-46.3) fL RDW Coeff of Tawanna (11.5-14.5) % Plt Count (130-400) K/uL MPV (7.4-10.4) fL Immature Gran % (Auto) % Neut % (Auto) % Lymph % (Auto) % [place] % (Auto) % Eos % (Auto) % Baso % (Auto) % Neut # (Auto) (1.4-6.5) K/uL Lymph # (Auto) (1.2-3.4) K/uL [place] # (Auto) (0.11-0.59) K/uL Eos # (Auto) (0-0.5) K/uL Baso # (Auto) (0-0.2) K/uL Immature Gran # (Auto) (0.00-0.02) K/uL Sodium (136-145) mmol/L Potassium (3.5-5.1) mmol/L Chloride (98-107) mmol/L Carbon Dioxide (21-32) mmol/L Anion Gap (3-11) BUN (6-23) mg/dl Creatinine (0.6-1.4) mg/dl Est Cr Clr Drug Dosing ml/min Est GFR ( Amer) ml/min Est GFR (Non-Af Amer) ml/min BUN/Creatinine Ratio (10-20) Glucose (70-99(Fasting)) mg/dl Calcium (8.5-10.1) mg/dl Total Bilirubin (0.2-1.0) mg/dl AST (13-39) U/L ALT (7-52) U/L Alkaline Phosphatase (34-104) U/L Total Protein (6.0-8.3) gm/dl Albumin (3.4-5.0) gm/dl Globulin (2.5-4.0) gm/dl Albumin/Globulin Ratio (0.9-2) TSH (0.300-4.500) uIu/ml Urine Color Yellow Urine Appearance Clear (Clear) Urine pH 6.5 (4.5-7.5) Ur Specific [place] 1.032 H (1.000-1.030) Urine Protein 1+ H (Negative) Urine Glucose (UA) Negative (Negative) Urine Ketones 2+ H (Negative) Urine Blood Negative (Negative) Urine Nitrite Negative (Negative) Urine Bilirubin Negative (Negative) Urine Urobilinogen Negative (Negative) Ur Leukocyte Esterase Negative (Negative) Urine WBC (Auto) 1-5 (0-5) /hpf Urine RBC (Auto) 0-4 (0-4) /hpf U Hyaline Cast (Auto) 1-5 (0-5) /lpf U Epithel Cells (Auto) 10-20 H (0-5) /lpf Urine Bacteria (Auto) Negative (Negative) Salicylates (3.0-30) mg/dl Urine Opiates Screen Neg (Neg) Ur Methadone, Qual Neg (Neg) Acetaminophen (10-30) ug/ml Urine Barbiturates Neg (Neg) Ur Phencyclidine (PCP) Neg (Neg) U Amphetamin/Meth Scrn Neg (Neg) MDMA (Ecstasy) Screen Neg (Neg) U Benzodiazepines Scrn Neg (Neg) Ur Cocaine Metabolite Neg (Neg) U Marijuana (THC) Screen Neg (Neg) Ethyl Alcohol mg/dL (<10.0) mg/dl SARS-CoV-2, RNA, NAAT (NEGATIVE) Administered Medications Discontinued Medications Haloperidol (Haloperidol 5 Mg Tab) 5 mg PO NOW STA Stop: 11/08/21 18:51 Last Admin: 11/08/21 19:20 Dose: 5 mg Documented by: [id number] Discharge Plan Visit Data Chief Complaint: Mental Health Evaluation ED Provider: Conrad Milligan Discharge Problem: Schizophrenia Patient Disposition: Admitted As Inpatient Discharge Instructions Interventions: ED Discharge Assessment Last Done: 11/08/21 19:39 Discharge Problem: Schizophrenia Qualifiers: Schizophrenia type: disorganized schizophrenia Qualified Code(s): F20.1 - Disorganized schizophrenia
[2021-11-08 15:18] LABS: Albumin Globulin Ratio 1.3 (0.9-2); Albumin Level 4.4 gm/dl (3.4-5.0); BUN Creatinine Ratio 10.9 (10-20); Bilirubin,Total 0.5 mg/dl (0.2-1.0); Calcium 9.3 mg/dl (8.5-10.1); Creatinine Clr Calc Pharmacy 116.6 ml/min; Globulin 3.5 gm/dl (2.5-4.0); Potassium 3.4 mmol/L (3.5-5.1); Total Protein 7.9 gm/dl (6.0-8.3)
[2021-11-08 15:20] LABS: Acetaminophen < 3 ug/ml (10-30); Salicylate < 3.0 mg/dl (3.0-30)
[2021-11-08 16:32] LABS: Appearance Urine Clear (Clear); Bacteria Urine Automated Negative (Negative); Bilirubin Urine Negative (Negative); Blood Urine Negative (Negative); Color Urine Yellow; Glucose Urine UA Negative (Negative); Ketones Urine 2+ (Negative); Leukocyte Esterase Urine Negative (Negative); Nitrite Urine Negative (Negative); Protein Urine 1+ (Negative); RBC Urine Automated 0-4 /hpf (0-4); Specific Gravity Urine 1.032 (1.000-1.030); Urobilinogen Urine Negative (Negative); pH Urine 6.5 (4.5-7.5)
[2021-11-08 17:01] LABS: Amphetamines+Metham, Urine Neg (Neg); Barbiturates, Urine Neg (Neg); Benzodiazepine, Urine Neg (Neg); Cocaine, Urine Neg (Neg); MDMA (Ecstacy), Urine Neg (Neg); Methadone, Urine Neg (Neg); Opiate, Urine Neg (Neg); Phencyclidine, Urine Neg (Neg)
[2021-11-08] MEDS ORDERED: HALOPERIDOL LACTATE 5 MG/ML 1 ML VIAL IV STA (18:49)
[2021-11-08] MEDS ORDERED: haloperidoL 5 MG TAB PO STA (18:50)
[2021-11-08] MEDS ORDERED: hydrOXYzine HCl 25 MG TAB PO PRN ×2 (19:01)
[2021-11-08] MEDS ORDERED: BISMUTH SUBSALICYLATE LIQD 236 ML PO PRN (19:01)
[2021-11-08] MEDS ORDERED: ALUMINUM/MAGNESIUM SUSP 30 ML UDC PO PRN (19:01)
[2021-11-08] MEDS ORDERED: MAGNESIUM HYDROXIDE SUSP 30 ML UDC PO PRN (19:01)
[2021-11-08] MEDS ORDERED: SODIUM CHLORIDE 0.65% NA SOLN 45 ML (OCEAN) PRN (19:01)
[2021-11-09] MEDS ORDERED: LORazepam 2 MG/1 ML VIAL IM PRN (09:50)
[2021-11-09] MEDS ORDERED: BENZTROPINE MESYLATE 1 MG/ML 2 ML AMP IM PRN (09:50)
[2021-11-09] MEDS ORDERED: HALOPERIDOL LACTATE 5 MG/ML 1 ML VIAL IM PRN (09:50)
[2021-11-09] MEDS: haloperidoL 5 MG TAB PO PRN (09:51)
--- NOTE | 2021-11-09 12:19 | History & Physical ---
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 He requires inpatient hospitalization for safety and monitoring. (1) Schizophrenia: Schizophrenia type: disorganized schizophrenia Qualified Code(s): F20.1 - Disorganized schizophrenia The patient was admitted to the [facility] ([facility]) on q15 min checks (behavioral with suicide precautions) for safety. The patient will participate in group, recreational, and milieu therapies and will be offered additional individual and family sessions as clinically appropriate. He desires to resume his Clozaril and Haldol and has accepted 2 doses of Haldol 5 mg already without dystonia. Will begin 25 mg clozapine this hs and titrate with Haldol 5 mg BID pending more therapeutic level. He is not fully able to processes full risks/benefits but does voice a preference. Will likely need extended commitment and ultimately conversion to outpatient commitment with CONDE. Inventory Assets Strengths: interested in employment, taking PO meds Needs: outpatient care, CONDE Risk Factors Assessment Male: Yes : No Do You Have Access To A Gun?: No Mental Health Diagnoses: Yes Substance Use Disorders: No Previous Attempt: Yes Previous Psychiatric Hospitalization: Yes Protective Factors Assessment Stable Relationships: No Psychiatric History Identifying Data LEXII TEE is a 31-year-old M who currently lives in alone in [place], has a history of schizophrenia, and was admitted on 11/08/21 19:01 on a 302 involuntary commitment for disorganized behavior. Chief Complaint "I stopped believing in GOD so I wrote a suicide note but now I need to go as I don't want to lose my job." History of Present Illness Police brought patient to ED on warrant after he reportedly broke into a neighbor's apartment and was acting strange. He claims he was hiding out there so he wouldn't scare 2 women who were in the hallway. He reported taking a bottle of sleeping pills and when confronted about whether or not this was true he stated he swallowed the plastic pill bottle. He reported stabbing himself in the arm but there was not wound and asked officers to shoot him. He went on and on about dying of COVID, states COVID disrupted his work at [employer]. 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 He also maintains that he takes his psychiatric medications when records indicate he has likely been off of clozaril and Haldol for most of last year. On the unit he appears restless and posturing at times and otherwise covers his head with a blanket. He doesn't keep a shirt on and will wander out of the [place] with his pants down. He has masturbated in front of staff. When asked about supports, discussed family as previously reported his parents are , now he claims those were not his biological parents. He cannot tell us how he support himself or what he does during the day to pass the time. He was seen in ED 05/04 for altered mental status and I previously evaluated patient on consult service in 06/03 as he was admitted medically for ?dystonia following his Haldol dec injection. Past Psychiatric History Current Psychiatric Diagnosis: schizophrenia [facility], unclear if currently open with any services. 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 Previous Psych Admissions: Lisa 2017 the [facility], was residing in [facility] at one point. [facility] 05/01, 06/02 with some sexually inappropriate comments to female staff. Do You Have Access To A Gun?: No Describe Attempts in the Past: 1 attempt OD Nyquil ?2016. Allergies Allergy/AdvReac Type Severity Reaction Status Date / Time meloxicam AdvReac blurred Verified 08/01/21 11:24 vision naproxen AdvReac blurred Verified 08/01/21 11:24 vision Home Medications Medication Instructions Recorded Confirmed Type clozapine 100 mg tablet 50 mg PO HS 04/22/21 11/08/21 History haloperidol decanoate 100 mg/mL 150 mg IM Q4WK 04/22/21 11/08/21 History intramuscular solution Family History Family History of: Doesn't Know Alcohol History Hx of Alcohol Use Over the Past 12 Months: No Smoking Use Have You Smoked or Used Tobacco Products in the Last 30 Days: No tobacco type: cigarettes Smoking Status: Never smoker Substance History Hx of Prescription Med Misuse Over the Past 12 Months: No Hx of Over the Counter Med Misuse Over the Past 12 Months: No Hx of Inhalent Misuse Over the Past 12 Months: No Hx of Organic Substance Use Over the Past 12 Months: No Hx of Illegal Substances/Street Drug Use Over Past 12 Months: No Problems as a Result of Past Substance Use: None Identified Personal History Living Arrangements: Apartment Born In: [place] Childhood: states father had 10 wives, 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 Highest Grade Completed: Some College Highest Grade Completed Comment: patient dropped out of school; confirmed he is not enrolled in classes Marital Status: Single Number Of Children: 0 Beliefs That Will Affect Care: None Hx Legal Problems: Yes (Per records, has a history of multiple arrests including felony charges in 2014 and 2016) Hx Traumatic Life Events: Yes Patient History Medical History Alcohol use disorder . 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 Followed by [facility] by Dr. Aguilar. Managed with clozapine Sinus tachycardia Sleep deprivation Somnolence Suicide attempt Weakness generalized Surgical History No history of previous surgery Family History Denies family history of Colon cancer Ovarian cancer Prostate cancer Myocardial infarction Breast cancer Social History Smoking Status: Never smoker Cigarettes Per Day: Patient unresponsive at this time; Hx Alcohol Use: No Hx Substance Use: No Preferred Language: Arabic Communication Ability: Effective Visual Impairment: No Limitations Hearing Ability: Normal Debt Counselor Required: No Beliefs That Will Affect Care: None marital status: Single Current Living Situation: Other Current Living Situation Comment: Apartment , see ED admission report current occupational status: employed Feels Safe at Home: Yes Childhood Exposure to Second-Hand Smoke: No Dental Care, Regularly: No Physical Activity Frequency: Does not Exercise Seatbelt Use: always Sunscreen Use: No Assistive Devices: Glasses Review of Systems Review of Systems: Unobtainable due to mental health condition Physical Exam Psychiatric: Orientation: alert, oriented to person and oriented to place Apperance: + inappropriately dressed (won't wear a shirt) and + inappropriately groomed (body odor) Eye Contact: + poor eye contact Motor Behavior: no abnormal motor movements Speech: + pressured speech (and poorly articulated) Affect: + flat affect Mood: + depressed mood Thought Process: + tangential thought process Thought Content: + delusions Suicidal Thoughts: denies suicidal thoughts Homicidal Thoughts: denies homicidal thoughts Hallucinations: no auditory hallucinations and no visual hallucinations Cognition: language grossly intact; + attention not intact Estimated Intelligence: consistent with education level Insight: + severely impaired insight Judgement: + severely impaired judgement Vital Signs (Past 24 Hours): Last Vital Signs Temp 36.3 C L 11/08/21 20:55 Pulse 96 H 11/09/21 06:39 Resp 18 11/09/21 06:39 BP 146/89 H 11/09/21 06:39 Pulse Ox 97 11/08/21 14:14 Exam Statement: A physical exam was performed in the ED by Dr. Milligan for the purposes of medical clearance. I accept that physical as correct and adequate for the purposes of the inpatient physical exam. Results & Data ([facility]) Laboratory Results Laboratory Results - last 24 hr 11/08/21 11/08/21 11/08/21 14:45 14:45 14:45 WBC 7.70 RBC 4.78 Hgb 14.7 Hct 42.2 MCV 88.3 MCH 30.8 MCHC 34.8 RDW Std Deviation 41.4 RDW Coeff of Tawanna 13.0 Plt Count 343 MPV 10.4 Immature Gran % (Auto) 0.1 Neut % (Auto) 54.4 Lymph % (Auto) 34.2 [place] % (Auto) 7.3 Eos % (Auto) 3.4 Baso % (Auto) 0.6 Neut # (Auto) 4.19 Lymph # (Auto) 2.63 [place] # (Auto) 0.56 Eos # (Auto) 0.26 Baso # (Auto) 0.05 Immature Gran # (Auto) 0.01 Sodium 138 Potassium 3.4 L Chloride 103 Carbon Dioxide 30 Anion Gap 5 BUN 11 Creatinine 1.01 Est Cr Clr Drug Dosing 116.6 Est GFR ( Amer) 116.0 Est GFR (Non-Af Amer) 100.0 BUN/Creatinine Ratio 10.9 Glucose 93 Calcium 9.3 Total Bilirubin 0.5 AST 26 ALT 23 Alkaline Phosphatase 62 Total Protein 7.9 Albumin 4.4 Globulin 3.5 Albumin/Globulin Ratio 1.3 TSH 1.042 Urine Color Urine Appearance Urine pH Ur Specific [place] Urine Protein Urine Glucose (UA) Urine Ketones Urine Blood Urine Nitrite Urine Bilirubin Urine Urobilinogen Ur Leukocyte Esterase Urine WBC (Auto) Urine RBC (Auto) U Hyaline Cast (Auto) U Epithel Cells (Auto) Urine Bacteria (Auto) Salicylates Urine Opiates Screen Ur Methadone, Qual Acetaminophen Urine Barbiturates Ur Phencyclidine (PCP) U Amphetamin/Meth Scrn MDMA (Ecstasy) Screen U Benzodiazepines Scrn Ur Cocaine Metabolite U Marijuana (THC) Screen Ethyl Alcohol mg/dL SARS-CoV-2, RNA, NAAT 11/08/21 11/08/21 11/08/21 14:45 14:45 15:06 WBC RBC Hgb Hct MCV MCH MCHC RDW Std Deviation RDW Coeff of Tawanna Plt Count MPV Immature Gran % (Auto) Neut % (Auto) Lymph % (Auto) [place] % (Auto) Eos % (Auto) Baso % (Auto) Neut # (Auto) Lymph # (Auto) [place] # (Auto) Eos # (Auto) Baso # (Auto) Immature Gran # (Auto) Sodium Potassium Chloride Carbon Dioxide Anion Gap BUN Creatinine Est Cr Clr Drug Dosing Est GFR ( Amer) Est GFR (Non-Af Amer) BUN/Creatinine Ratio Glucose Calcium Total Bilirubin AST ALT Alkaline Phosphatase Total Protein Albumin Globulin Albumin/Globulin Ratio TSH Urine Color Urine Appearance Urine pH Ur Specific [place] Urine Protein Urine Glucose (UA) Urine Ketones Urine Blood Urine Nitrite Urine Bilirubin Urine Urobilinogen Ur Leukocyte Esterase Urine WBC (Auto) Urine RBC (Auto) U Hyaline Cast (Auto) U Epithel Cells (Auto) Urine Bacteria (Auto) Salicylates < 3.0 L Urine Opiates Screen Ur Methadone, Qual Acetaminophen < 3 L Urine Barbiturates Ur Phencyclidine (PCP) U Amphetamin/Meth Scrn MDMA (Ecstasy) Screen U Benzodiazepines Scrn Ur Cocaine Metabolite U Marijuana (THC) Screen Ethyl Alcohol mg/dL < 10.0 SARS-CoV-2, RNA, NAAT NEGATIVE 11/08/21 11/08/21 16:15 16:15 WBC RBC Hgb Hct MCV MCH MCHC RDW Std Deviation RDW Coeff of Tawanna Plt Count MPV Immature Gran % (Auto) Neut % (Auto) Lymph % (Auto) [place] % (Auto) Eos % (Auto) Baso % (Auto) Neut # (Auto) Lymph # (Auto) [place] # (Auto) Eos # (Auto) Baso # (Auto) Immature Gran # (Auto) Sodium Potassium Chloride Carbon Dioxide Anion Gap BUN Creatinine Est Cr Clr Drug Dosing Est GFR ( Amer) Est GFR (Non-Af Amer) BUN/Creatinine Ratio Glucose Calcium Total Bilirubin AST ALT Alkaline Phosphatase Total Protein Albumin Globulin Albumin/Globulin Ratio TSH Urine Color Yellow Urine Appearance Clear Urine pH 6.5 Ur Specific [place] 1.032 H Urine Protein 1+ H Urine Glucose (UA) Negative Urine Ketones 2+ H Urine Blood Negative Urine Nitrite Negative Urine Bilirubin Negative Urine Urobilinogen Negative Ur Leukocyte Esterase Negative Urine WBC (Auto) 1-5 Urine RBC (Auto) 0-4 U Hyaline Cast (Auto) 1-5 U Epithel Cells (Auto) 10-20 H Urine Bacteria (Auto) Negative Salicylates Urine Opiates Screen Neg Ur Methadone, Qual Neg Acetaminophen Urine Barbiturates Neg Ur Phencyclidine (PCP) Neg U Amphetamin/Meth Scrn Neg MDMA (Ecstasy) Screen Neg U Benzodiazepines Scrn Neg Ur Cocaine Metabolite Neg U Marijuana (THC) Screen Neg Ethyl Alcohol mg/dL SARS-CoV-2, RNA, NAAT Current Inpatient Medications Current Inpatient Medications: Current Inpatient Medications Acetaminophen (Acetaminophen 325 Mg Tab) 650 mg PO Q4H PRN PRN Reason: Headache or Minor Fever Stop: 12/08/21 19:00 Al Hydrox/Mg Hydrox/Simethicone (Aluminum/Magnesium Susp 30 Ml Udc) 30 ml PO Q4H PRN PRN Reason: GI Upset Stop: 12/08/21 19:00 Benztropine Mesylate (Benztropine Mesylate 1 Mg/Ml 2 Ml Amp) 1 mg IM Q8 PRN PRN Reason: Agitation Stop: 12/09/21 09:49 Benztropine Mesylate (Benztropine Mesylate 1 Mg Tab) 1 mg PO Q6 PRN PRN Reason: muscle spasm Stop: 12/09/21 09:51 Bismuth Subsalicylate (Bismuth Subsalicylate Liqd 236 Ml) 15 ml PO PRN PRN PRN Reason: Loose Stool Stop: 12/08/21 19:00 Clozapine (Clozapine 25 Mg Tab) 25 mg PO HS LINO Stop: 12/09/21 21:59 Haloperidol (Haloperidol 5 Mg Tab) 5 mg PO Q4 PRN PRN Reason: Agitation Stop: 12/08/21 20:24 Last Admin: 11/09/21 09:51 Dose: 5 mg Documented by: Haloperidol (Haloperidol 5 Mg Tab) 5 mg PO [id number] LINO Stop: 12/09/21 16:59 Haloperidol Lactate (Haloperidol Lactate 5 Mg/Ml 1 Ml Vial) 10 mg IM Q8 PRN PRN Reason: Anxiety/Agitation Stop: 12/09/21 09:49 Hydroxyzine HCl (Hydroxyzine Hcl 25 Mg Tab) 50 mg PO HSZ PRN PRN Reason: Insomnia Stop: 12/08/21 19:00 Hydroxyzine HCl (Hydroxyzine Hcl 25 Mg Tab) 25 mg PO Q4H PRN PRN Reason: Anxiety Stop: 12/08/21 19:00 Lorazepam (Lorazepam 1 Mg Tab) 1 mg PO Q4 PRN PRN Reason: Anxiety/Agitation Stop: 12/09/21 09:49 Lorazepam (Lorazepam 2 Mg/1 Ml Vial) 2 mg IM Q6 PRN PRN Reason: Anxiety/Agitation Stop: 12/09/21 09:49 Magnesium Hydroxide (Magnesium Hydroxide Susp 30 Ml Udc) 30 ml PO DAILY PRN PRN Reason: Constipation Stop: 12/08/21 19:00 Sodium Chloride (Sodium Chloride 0.65% Na Soln 45 Ml ([place])) 1 - 2 sprays NA PRN PRN PRN Reason: Nasal Dryness/Congestion Stop: 12/08/21 19:00
[2021-11-09] MEDS: LORazepam 1 MG TAB PO PRN (16:00)
[2021-11-09] MEDS: haloperidoL 5 MG TAB PO SCH (16:00)
[2021-11-09] MEDS ORDERED: cloZAPine 25 MG TAB PO SCH (22:00)
[2021-11-10] MEDS: BENZTROPINE MESYLATE 1 MG TAB PO PRN ×2 (03:40→07:46)
[2021-11-10] MEDS: LORazepam 1 MG TAB PO PRN (07:45)
[2021-11-10] MEDS: haloperidoL 5 MG TAB PO SCH ×2 (07:46→16:58)
--- NOTE | 2021-11-10 09:12 | Psychiatric Progress Note ---
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 He requires inpatient hospitalization for safety and monitoring. (1) Schizophrenia: 11/10/21: add standing Cogentin BID and Ativan 1 mg TID. Fasting labs in am if will cooperate. MNPR for ongoing psychosis with poor boundaries. 11/09/21: The patient was admitted to the [facility] ([facility]) on q15 min checks (behavioral with suicide precautions) for safety. The patient will participate in group, recreational, and milieu therapies and will be offered additional individual and family sessions as clinically appropriate. He desires to resume his Clozaril and Haldol and has accepted 2 doses of Haldol 5 mg already without dystonia. Will begin 25 mg clozapine this hs and titrate with Haldol 5 mg BID pending more therapeutic level. He is not fully able to processes full risks/benefits but does voice a preference. Will likely need extended commitment and ultimately conversion to outpatient commitment with CONDE. Inventory Assets Strengths: interested in employment, taking PO meds Needs: outpatient care, CONDE Risk Factors Assessment Male: Yes : No Do You Have Access To A Gun?: No Mental Health Diagnoses: Yes Substance Use Disorders: No Previous Attempt: Yes Previous Psychiatric Hospitalization: Yes Protective Factors Assessment Stable Relationships: No Interval History Identifying Information LEXII TEE is a 31-year-old M who currently lives in alone in [place], has a history of schizophrenia, and was admitted on 11/08/21 19:01 on a 302 involuntary commitment for disorganized behavior. Chief Complaint ongoing disorganization Review of Systems Sleep Information Total Hours of Sleep: 4.25 Sleep Comments: pt on q-15 minute checks Meal Information Percent Meal Consumed - Breakfast: 100 Percent Meal Consumed - Lunch: 100 Percent Meal Consumed - Dinner: 100 Subjective Subjective Patient was seen & assessed and interval progress reviewed with nursing and social work. Requiring prns/early doses of Haldol, prn Ativan and Vistaril for restlessness and delusions. Walked out of his room naked but was redirectible. Currently sleeping as was up in middle of night. Cogentin prn as well for some concern for EPS vs posturing. Patient was staring out window for extended period this am. He is eating rather voraciously as admittedly was not eating well prior to hospitalization. Physical Exam Psychiatric Orientation: + not alert Apperance: + inappropriately dressed (won't wear a shirt) Eye Contact: + poor eye contact Motor Behavior: no abnormal motor movements Speech: no pressured speech Affect: + flat affect (with alexithymia) Thought Process: + tangential thought process Thought Content: + delusions Suicidal Thoughts: denies suicidal thoughts Homicidal Thoughts: denies homicidal thoughts Hallucinations: no auditory hallucinations and no visual hallucinations Cognition: language grossly intact; + attention not intact Estimated Intelligence: consistent with education level Insight: + severely impaired insight Judgement: + severely impaired judgement Vital Signs (Past 24 Hours) Last Vital Signs Temp 37.2 C 11/09/21 21:34 Pulse 96 H 11/09/21 06:39 Resp 18 11/09/21 06:39 BP 146/89 H 11/09/21 06:39 Pulse Ox 97 11/08/21 14:14 Results & Data ([facility]) Current Inpatient Medications Current Inpatient Medications: Current Inpatient Medications Acetaminophen (Acetaminophen 325 Mg Tab) 650 mg PO Q4H PRN PRN Reason: Headache or Minor Fever Stop: 12/08/21 19:00 Al Hydrox/Mg Hydrox/Simethicone (Aluminum/Magnesium Susp 30 Ml Udc) 30 ml PO Q4H PRN PRN Reason: GI Upset Stop: 12/08/21 19:00 Benztropine Mesylate (Benztropine Mesylate 1 Mg/Ml 2 Ml Amp) 1 mg IM Q8 PRN PRN Reason: Agitation Stop: 12/09/21 09:49 Benztropine Mesylate (Benztropine Mesylate 1 Mg Tab) 1 mg PO Q6 PRN PRN Reason: muscle spasm Stop: 12/09/21 09:51 Last Admin: 11/10/21 07:46 Dose: 1 mg Documented by: Bismuth Subsalicylate (Bismuth Subsalicylate Liqd 236 Ml) 15 ml PO PRN PRN PRN Reason: Loose Stool Stop: 12/08/21 19:00 Clozapine (Clozapine 25 Mg Tab) 25 mg PO HS LINO Stop: 12/09/21 21:59 Last Admin: 11/09/21 20:57 Dose: 25 mg Documented by: Haloperidol (Haloperidol 5 Mg Tab) 5 mg PO Q4 PRN PRN Reason: Agitation Stop: 12/08/21 20:24 Last Admin: 11/09/21 09:51 Dose: 5 mg Documented by: Haloperidol (Haloperidol 5 Mg Tab) 5 mg PO [id number] LINO Stop: 12/09/21 16:59 Last Admin: 11/10/21 07:46 Dose: 5 mg Documented by: Haloperidol Lactate (Haloperidol Lactate 5 Mg/Ml 1 Ml Vial) 10 mg IM Q8 PRN PRN Reason: Anxiety/Agitation Stop: 12/09/21 09:49 Hydroxyzine HCl (Hydroxyzine Hcl 25 Mg Tab) 50 mg PO HSZ PRN PRN Reason: Insomnia Stop: 12/08/21 19:00 Last Admin: 11/10/21 03:40 Dose: 50 mg Documented by: Hydroxyzine HCl (Hydroxyzine Hcl 25 Mg Tab) 25 mg PO Q4H PRN PRN Reason: Anxiety Stop: 12/08/21 19:00 Lorazepam (Lorazepam 1 Mg Tab) 1 mg PO Q4 PRN PRN Reason: Anxiety/Agitation Stop: 12/09/21 09:49 Last Admin: 11/10/21 07:45 Dose: 1 mg Documented by: Lorazepam (Lorazepam 2 Mg/1 Ml Vial) 2 mg IM Q6 PRN PRN Reason: Anxiety/Agitation Stop: 12/09/21 09:49 Magnesium Hydroxide (Magnesium Hydroxide Susp 30 Ml Udc) 30 ml PO DAILY PRN PRN Reason: Constipation Stop: 12/08/21 19:00 Sodium Chloride (Sodium Chloride 0.65% Na Soln 45 Ml ([place])) 1 - 2 sprays NA PRN PRN PRN Reason: Nasal Dryness/Congestion Stop: 12/08/21 19:00 Mental Health & Subst Abuse Tx Therapist Name of Therapist: None Mechanic Insulator Name of Mechanic Insulator: None (1) Schizophrenia Schizophrenia type: disorganized schizophrenia Qualified Code(s): F20.1 - Disorganized schizophrenia
[2021-11-10] MEDS: haloperidoL 5 MG TAB PO PRN ×2 (11:34→20:21)
[2021-11-10] MEDS: BENZTROPINE MESYLATE 1 MG TAB PO SCH ×2 (13:15→16:59)
[2021-11-10] MEDS: LORazepam 1 MG TAB PO SCH ×2 (15:02→20:19)
[2021-11-10] MEDS ORDERED: cloZAPine 25 MG TAB PO SCH (22:00)
[2021-11-11] MEDS: haloperidoL 5 MG TAB PO PRN (03:34)
[2021-11-11] MEDS: LORazepam 1 MG TAB PO PRN (03:37)
[2021-11-11] MEDS: BENZTROPINE MESYLATE 1 MG TAB PO SCH ×2 (07:56→17:04)
[2021-11-11] MEDS: haloperidoL 5 MG TAB PO SCH ×2 (07:56→17:04)
[2021-11-11] MEDS: LORazepam 1 MG TAB PO SCH ×3 (07:58→21:07)
--- NOTE | 2021-11-11 12:44 | Psychiatric Progress Note ---
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 He requires inpatient hospitalization for safety and monitoring. 11/11/21: slight improvement but remains very disorganized, odd behaviors, unable to care for self outside of the hospital. No significant EPS. (1) Schizophrenia: 11/11/21: As on standing Haldol and Ativan, decrease frequency or PO prns. Patient has not been aggressive but will box the air and is still not sleeping well so MNPR remains in place. Increase Clozaril 75 mg po qhs. 11/10/21: add standing Cogentin BID and Ativan 1 mg TID. Fasting labs in am if will cooperate. MNPR for ongoing psychosis with poor boundaries. 11/09/21: The patient was admitted to the [facility] ([facility]) on q15 min checks (behavioral with suicide precautions) for safety. The patient will participate in group, recreational, and milieu therapies and will be offered additional individual and family sessions as clinically appropriate. He desires to resume his Clozaril and Haldol and has accepted 2 doses of Haldol 5 mg already without dystonia. Will begin 25 mg clozapine this hs and titrate with Haldol 5 mg BID pending more therapeutic level. He is not fully able to processes full risks/benefits but does voice a preference. Will likely need extended commitment and ultimately conversion to outpatient commitment with CONDE. Inventory Assets Strengths: interested in employment, taking PO meds Needs: outpatient care, CONDE Risk Factors Assessment Male: Yes : No Do You Have Access To A Gun?: No Mental Health Diagnoses: Yes Substance Use Disorders: No Previous Attempt: Yes Previous Psychiatric Hospitalization: Yes Protective Factors Assessment Stable Relationships: No Interval History Identifying Information LEXII TEE is a 31-year-old M who currently lives in alone in [place], has a history of schizophrenia, and was admitted on 11/08/21 19:01 on a 302 involuntary commitment for disorganized behavior. Chief Complaint bizarre gestures and stuttering Review of Systems Sleep Information Total Hours of Sleep: 1.75 Sleep Comments: pt on q-15 minute checks Meal Information Percent Meal Consumed - Breakfast: 100 Percent Meal Consumed - Lunch: 100 Percent Meal Consumed - Dinner: 100 Subjective Subjective Patient was seen & assessed and interval progress reviewed with treatment team. Kwesi did not sleep well last night despite prns. He is frequently up/down after brief naps. He is responding to internal stimuli with finger gestures, gait is steady but does appear tired at times. He denies his tongue feeling funny or muscles being tight but doesn't allow physical exam. Did cooperate with am labs. Continues to take PO meds. Did sign ROIs for a friend and select outpatient providers as well as work at [employer]. Physical Exam Psychiatric Orientation: oriented to person and oriented to place; + not alert Apperance: + inappropriately dressed (shirt on inside out and backwards) Eye Contact: + poor eye contact Motor Behavior: + abnormal motor movements (odd posturing at times) Speech: + abnormal rate/rhythm/volume of speech (stutter (apparently baseline)) Affect: + flat affect (with alexithymia) Mood: + depressed mood Thought Process: + tangential thought process Suicidal Thoughts: denies suicidal thoughts Homicidal Thoughts: denies homicidal thoughts Hallucinations: + visual hallucinations (presume); no auditory hallucinations Cognition: language grossly intact; + attention not intact Estimated Intelligence: consistent with education level Insight: + impaired insight Judgement: + impaired judgement Vital Signs (Past 24 Hours) Last Vital Signs Temp 35.6 C L 11/11/21 06:52 Pulse 106 H 11/11/21 06:53 Resp 18 11/11/21 06:52 BP 122/81 11/11/21 06:53 Pulse Ox 97 11/08/21 14:14 Results & Data ([facility]) Laboratory Results Laboratory Results - last 24 hr 11/11/21 07:45 Fasting Glucose 91 Triglycerides 69 Cholesterol 184 LDL Cholesterol, Calc 124 VLDL Cholesterol, Calc 14 HDL Cholesterol 46 Cholesterol/HDL Ratio 4.0 Current Inpatient Medications Current Inpatient Medications: Current Inpatient Medications Acetaminophen (Acetaminophen 325 Mg Tab) 650 mg PO Q4H PRN PRN Reason: Headache or Minor Fever Stop: 12/08/21 19:00 Al Hydrox/Mg Hydrox/Simethicone (Aluminum/Magnesium Susp 30 Ml Udc) 30 ml PO Q4H PRN PRN Reason: GI Upset Stop: 12/08/21 19:00 Benztropine Mesylate (Benztropine Mesylate 1 Mg/Ml 2 Ml Amp) 1 mg IM Q8 PRN PRN Reason: Agitation Stop: 12/09/21 09:49 Benztropine Mesylate (Benztropine Mesylate 1 Mg Tab) 1 mg PO BID17 [facility] Stop: 12/10/21 12:29 Last Admin: 11/11/21 07:56 Dose: 1 mg Documented by: Bismuth Subsalicylate (Bismuth Subsalicylate Liqd 236 Ml) 15 ml PO PRN PRN PRN Reason: Loose Stool Stop: 12/08/21 19:00 Haloperidol (Haloperidol 5 Mg Tab) 5 mg PO BID17 [facility] Stop: 12/09/21 16:59 Last Admin: 11/11/21 07:56 Dose: 5 mg Documented by: Haloperidol Lactate (Haloperidol Lactate 5 Mg/Ml 1 Ml Vial) 10 mg IM Q8 PRN PRN Reason: Anxiety/Agitation Stop: 12/09/21 09:49 Hydroxyzine HCl (Hydroxyzine Hcl 25 Mg Tab) 50 mg PO HSZ PRN PRN Reason: Insomnia Stop: 12/08/21 19:00 Last Admin: 11/10/21 03:40 Dose: 50 mg Documented by: Lorazepam (Lorazepam 2 Mg/1 Ml Vial) 2 mg IM Q6 PRN PRN Reason: Anxiety/Agitation Stop: 12/09/21 09:49 Lorazepam (Lorazepam 1 Mg Tab) 1 mg PO TID [facility] Stop: 12/10/21 13:59 Last Admin: 11/11/21 07:58 Dose: 1 mg Documented by: Magnesium Hydroxide (Magnesium Hydroxide Susp 30 Ml Udc) 30 ml PO DAILY PRN PRN Reason: Constipation Stop: 12/08/21 19:00 Sodium Chloride (Sodium Chloride 0.65% Na Soln 45 Ml ([place])) 1 - 2 sprays NA PRN PRN PRN Reason: Nasal Dryness/Congestion Stop: 12/08/21 19:00 Mental Health & Subst Abuse Tx Therapist Name of Therapist: None Appliance Assembler Name of Appliance Assembler: None (1) Schizophrenia Schizophrenia type: disorganized schizophrenia Qualified Code(s): F20.1 - Disorganized schizophrenia
[2021-11-11] MEDS ORDERED: cloZAPine 25 MG TAB PO SCH (22:00)
[2021-11-12] MEDS: BENZTROPINE MESYLATE 1 MG TAB PO SCH ×2 (08:15→17:01)
[2021-11-12] MEDS: haloperidoL 5 MG TAB PO SCH (08:15)
[2021-11-12] MEDS: LORazepam 1 MG TAB PO SCH (08:16)
--- NOTE | 2021-11-12 10:06 | Psychiatric Progress Note ---
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 He requires inpatient hospitalization for safety and monitoring. 11/12/21: slight improvement but remains very disorganized, odd behaviors, unable to care for self outside of the hospital. (1) Schizophrenia: 11/12/21: Clozaril 100 mg po qhs. Will taper standing Ativan dosing. Some of his complaints today related to the prn Haldol given last 2 days so will continue same standing dose. Will offer CONDE Haldol dec soon. 303 hearing in am. 11/11/21: As on standing Haldol and Ativan, decrease frequency or PO prns. Patient has not been aggressive but will box the air and is still not sleeping well so MNPR remains in place. Increase Clozaril 75 mg po qhs. 11/10/21: add standing Cogentin BID and Ativan 1 mg TID. Fasting labs in am if will cooperate. MNPR for ongoing psychosis with poor boundaries. 11/09/21: The patient was admitted to the [facility] ([facility] mental health unit) on q15 min checks (behavioral with suicide precautions) for safety. The patient will participate in group, recreational, and milieu therapies and will be offered additional individual and family sessions as clinically appropriate. He desires to resume his Clozaril and Haldol and has accepted 2 doses of Haldol 5 mg already without dystonia. Will begin 25 mg clozapine this hs and titrate with Haldol 5 mg BID pending more therapeutic level. He is not fully able to processes full risks/benefits but does voice a preference. Will likely need extended commitment and ultimately conversion to outpatient commitment with CONDE. Inventory Assets Strengths: interested in employment, taking PO meds Needs: outpatient care, CONDE Risk Factors Assessment Male: Yes : No Do You Have Access To A Gun?: No Mental Health Diagnoses: Yes Substance Use Disorders: No Previous Attempt: Yes Previous Psychiatric Hospitalization: Yes Protective Factors Assessment Stable Relationships: No Interval History Identifying Information LEXII TEE is a 31-year-old M who currently lives in alone in [place], has a history of schizophrenia, and was admitted on 11/08/21 19:01 on a 302 involuntary commitment for disorganized behavior. Chief Complaint c/o some sedation Review of Systems Sleep Information Total Hours of Sleep: 4.5 Sleep Comments: Pt was up several times pacing the halls of the unit. The patient was directed to lay back down which he did for a short time Meal Information Percent Meal Consumed - Breakfast: 100 Percent Meal Consumed - Lunch: 100 Percent Meal Consumed - Dinner: 100 Subjective Subjective Patient was seen & assessed and interval progress reviewed with nursing and social work. Still stares, wanders, gestures to the air as if responding to internal stimuli. Eating well and med compliant. Decreased requirement for Haldol yesterday and is noting some sedation this am but accepted am meds as scheduled. Gait is steadier. Still disrupted sleep but slept >4 hrs on overnight shift. Physical Exam Psychiatric Orientation: oriented to person and oriented to place; + not alert Eye Contact: + poor eye contact Motor Behavior: + abnormal motor movements (odd posturing at times) Speech: no pressured speech and + abnormal rate/rhythm/volume of speech (stutter (apparently baseline)) Affect: + flat affect (with alexithymia) Thought Process: + tangential thought process Suicidal Thoughts: denies suicidal thoughts Homicidal Thoughts: denies homicidal thoughts Hallucinations: + visual hallucinations (presume); no auditory hallucinations Cognition: language grossly intact; + attention not intact Estimated Intelligence: consistent with education level Insight: + impaired insight Judgement: + impaired judgement Vital Signs (Past 24 Hours) Last Vital Signs Temp 36.4 C L 11/12/21 06:39 Pulse 109 H 11/12/21 06:41 Resp 18 11/12/21 06:39 BP 133/95 11/12/21 06:41 Pulse Ox 97 11/08/21 14:14 Results & Data ([facility]) Current Inpatient Medications Current Inpatient Medications: Current Inpatient Medications Acetaminophen (Acetaminophen 325 Mg Tab) 650 mg PO Q4H PRN PRN Reason: Headache or Minor Fever Stop: 12/08/21 19:00 Al Hydrox/Mg Hydrox/Simethicone (Aluminum/Magnesium Susp 30 Ml Udc) 30 ml PO Q4H PRN PRN Reason: GI Upset Stop: 12/08/21 19:00 Benztropine Mesylate (Benztropine Mesylate 1 Mg/Ml 2 Ml Amp) 1 mg IM Q8 PRN PRN Reason: Agitation Stop: 12/09/21 09:49 Benztropine Mesylate (Benztropine Mesylate 1 Mg Tab) 1 mg PO BID17 [facility] Stop: 12/10/21 12:29 Last Admin: 11/12/21 08:15 Dose: 1 mg Documented by: Bismuth Subsalicylate (Bismuth Subsalicylate Liqd 236 Ml) 15 ml PO PRN PRN PRN Reason: Loose Stool Stop: 12/08/21 19:00 Clozapine (Clozapine 100 Mg Tab) 100 mg PO HS [facility] Stop: 12/12/21 21:59 Haloperidol (Haloperidol 5 Mg Tab) 5 mg PO BID17 [facility] Stop: 12/09/21 16:59 Last Admin: 11/12/21 08:15 Dose: 5 mg Documented by: Haloperidol (Haloperidol 5 Mg Tab) 5 mg PO Q6 PRN PRN Reason: Agitation Stop: 12/08/21 20:24 Haloperidol Lactate (Haloperidol Lactate 5 Mg/Ml 1 Ml Vial) 10 mg IM Q8 PRN PRN Reason: Anxiety/Agitation Stop: 12/09/21 09:49 Lorazepam (Lorazepam 2 Mg/1 Ml Vial) 2 mg IM Q6 PRN PRN Reason: Anxiety/Agitation Stop: 12/09/21 09:49 Lorazepam (Lorazepam 1 Mg Tab) 1 mg PO Q6 PRN PRN Reason: Anxiety/Agitation Stop: 12/09/21 09:49 Lorazepam (Lorazepam 0.5 Mg Tab) 0.5 mg PO BID17 [facility] Stop: 12/12/21 16:59 Magnesium Hydroxide (Magnesium Hydroxide Susp 30 Ml Udc) 30 ml PO DAILY PRN PRN Reason: Constipation Stop: 12/08/21 19:00 Sodium Chloride (Sodium Chloride 0.65% Na Soln 45 Ml ([place])) 1 - 2 sprays NA PRN PRN PRN Reason: Nasal Dryness/Congestion Stop: 12/08/21 19:00 Mental Health & Subst Abuse Tx Therapist Name of Therapist: None Intelligence Director Name of Intelligence Director: None (1) Schizophrenia Schizophrenia type: disorganized schizophrenia Qualified Code(s): F20.1 - Disorganized schizophrenia
[2021-11-12] MEDS: LORazepam 0.5 MG TAB PO SCH (17:00)
[2021-11-12] MEDS: haloperidoL 0.5 MG TAB PO SCH (17:01)
[2021-11-12] MEDS ORDERED: cloZAPine 100 MG TAB PO SCH (22:00)
[2021-11-13] MEDS: BENZTROPINE MESYLATE 1 MG TAB PO SCH ×2 (07:58→21:01)
[2021-11-13] MEDS: haloperidoL 0.5 MG TAB PO SCH (07:58)
[2021-11-13] MEDS: LORazepam 0.5 MG TAB PO SCH ×2 (07:58→17:40)
--- NOTE | 2021-11-13 09:45 | Psychiatric Progress Note ---
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 He requires inpatient hospitalization for safety and monitoring. 11/13/21: less sedated, now refusing clozaril and realistically Haldol dec monotherapy likely better option. Re-reviewed past med trials of Abilify, Seroquel, Zyprexa, thorazine, but not Latuda or Invega. (1) Schizophrenia: 11/13/21: 303 granted. d/c Clozaril and consolidate Haldol to hs. He is agreeing to CONDE when can determine appropriate dose. Continue MNPR. 11/12/21: Clozaril 100 mg po qhs. Will taper standing Ativan dosing. Some of his complaints today related to the prn Haldol given last 2 days so will continue same standing dose. Will offer CONDE Haldol dec soon. 303 hearing in am. 11/11/21: As on standing Haldol and Ativan, decrease frequency or PO prns. Patient has not been aggressive but will box the air and is still not sleeping well so MNPR remains in place. Increase Clozaril 75 mg po qhs. 11/10/21: add standing Cogentin BID and Ativan 1 mg TID. Fasting labs in am if will cooperate. MNPR for ongoing psychosis with poor boundaries. 11/09/21: The patient was admitted to the [facility] ([facility] mental health unit) on q15 min checks (behavioral with suicide precautions) for safety. The patient will participate in group, recreational, and milieu therapies and will be offered additional individual and family sessions as clinically appropriate. He desires to resume his Clozaril and Haldol and has accepted 2 doses of Haldol 5 mg already without dystonia. Will begin 25 mg clozapine this hs and titrate with Haldol 5 mg BID pending more therapeutic level. He is not fully able to processes full risks/benefits but does voice a preference. Will likely need extended commitment and ultimately conversion to outpatient commitment with CONDE. Inventory Assets Strengths: interested in employment, taking PO meds Needs: outpatient care, CONDE Risk Factors Assessment Male: Yes : No Do You Have Access To A Gun?: No Mental Health Diagnoses: Yes Substance Use Disorders: No Previous Attempt: Yes Previous Psychiatric Hospitalization: Yes Protective Factors Assessment Stable Relationships: No Interval History Identifying Information LEXII TEE is a 31-year-old M who currently lives in alone in [place], has a history of schizophrenia, and was admitted on 11/08/21 19:01 on a 302 involuntary commitment for disorganized behavior. Chief Complaint "I can't be this sleepy at work". Review of Systems Sleep Information Total Hours of Sleep: 4.5 Sleep Comments: pt on q-15 minute checks Meal Information Percent Meal Consumed - Breakfast: 100 Percent Meal Consumed - Lunch: 100 Percent Meal Consumed - Dinner: 100 Subjective Subjective Patient was seen & assessed and interval progress reviewed with treatment team. More organized to the point he is able to process with staff circumstances around his admission, has a fixed belief that his sister in [place] is because he saw a friend of her's on the street and she told him this. Reports this is why he took the OD of pills (that there is no clear evidence of). He is still having restless sleep, reports nightmares of "bad things" happening to his family and won't elaborate. Denies SI currently. Less posturing today and fewer random hand movements. He is verbalizing preferences re: his care, now stating that she doesn't want to take clozaril due to sedation and this is why he stopped it. also he didn't realize he would need to resume with weekly lab draws since a restart as previously on every other week. He was preoccupied with getting weighed and is glad he is regaining weight here. Physical Exam Psychiatric Orientation: alert, oriented to person and oriented to place Apperance: appropriately dressed and appropriately groomed Eye Contact: + fair eye contact Motor Behavior: no abnormal motor movements Speech: + abnormal rate/rhythm/volume of speech (stutter (apparently baseline)) Affect: + flat affect (with alexithymia) Mood: + depressed mood Thought Process: + tangential thought process Thought Content: + delusions Suicidal Thoughts: denies suicidal thoughts Homicidal Thoughts: denies homicidal thoughts Hallucinations: no auditory hallucinations and no visual hallucinations Cognition: language grossly intact; + attention not intact Estimated Intelligence: consistent with education level Insight: + impaired insight Judgement: + impaired judgement Vital Signs (Past 24 Hours) Last Vital Signs Temp 36.6 C 11/13/21 06:49 Pulse 125 H 03/02/22 06:50 Resp 18 11/13/21 06:49 BP 127/78 11/13/21 06:50 Pulse Ox 97 11/08/21 14:14 Results & Data ([facility]) Current Inpatient Medications Current Inpatient Medications: Current Inpatient Medications Acetaminophen (Acetaminophen 325 Mg Tab) 650 mg PO Q4H PRN PRN Reason: Headache or Minor Fever Stop: 12/08/21 19:00 Al Hydrox/Mg Hydrox/Simethicone (Aluminum/Magnesium Susp 30 Ml Udc) 30 ml PO Q4H PRN PRN Reason: GI Upset Stop: 12/08/21 19:00 Benztropine Mesylate (Benztropine Mesylate 1 Mg/Ml 2 Ml Amp) 1 mg IM Q8 PRN PRN Reason: Agitation Stop: 12/09/21 09:49 Benztropine Mesylate (Benztropine Mesylate 1 Mg Tab) 1 mg PO BID17 [facility] Stop: 12/10/21 12:29 Last Admin: 11/13/21 07:58 Dose: 1 mg Documented by: Bismuth Subsalicylate (Bismuth Subsalicylate Liqd 236 Ml) 15 ml PO PRN PRN PRN Reason: Loose Stool Stop: 12/08/21 19:00 Clozapine (Clozapine 100 Mg Tab) 100 mg PO HS [facility] Stop: 12/12/21 21:59 Last Admin: 11/12/21 21:22 Dose: 100 mg Documented by: Haloperidol (Haloperidol 5 Mg Tab) 5 mg PO Q6 PRN PRN Reason: Agitation Stop: 12/08/21 20:24 Haloperidol (Haloperidol 0.5 Mg Tab) 2.5 mg PO BID17 [facility] Stop: 12/12/21 16:59 Last Admin: 11/13/21 07:58 Dose: 2.5 mg Documented by: Haloperidol Lactate (Haloperidol Lactate 5 Mg/Ml 1 Ml Vial) 10 mg IM Q8 PRN PRN Reason: Anxiety/Agitation Stop: 12/09/21 09:49 Lorazepam (Lorazepam 2 Mg/1 Ml Vial) 2 mg IM Q6 PRN PRN Reason: Anxiety/Agitation Stop: 12/09/21 09:49 Lorazepam (Lorazepam 1 Mg Tab) 1 mg PO Q6 PRN PRN Reason: Anxiety/Agitation Stop: 12/09/21 09:49 Lorazepam (Lorazepam 0.5 Mg Tab) 0.5 mg PO BID17 [facility] Stop: 12/12/21 16:59 Last Admin: 11/13/21 07:58 Dose: 0.5 mg Documented by: Magnesium Hydroxide (Magnesium Hydroxide Susp 30 Ml Udc) 30 ml PO DAILY PRN PRN Reason: Constipation Stop: 12/08/21 19:00 Sodium Chloride (Sodium Chloride 0.65% Na Soln 45 Ml ([place])) 1 - 2 sprays NA PRN PRN PRN Reason: Nasal Dryness/Congestion Stop: 12/08/21 19:00 Mental Health & Subst Abuse Tx Therapist Name of Therapist: None Octave Board Racker Name of Octave Board Racker: None (1) Schizophrenia Schizophrenia type: disorganized schizophrenia Qualified Code(s): F20.1 - Disorganized schizophrenia
[2021-11-13] MEDS: haloperidoL 5 MG TAB PO SCH (21:01)
[2021-11-13] MEDS ORDERED: ZOLPIDEM TARTRATE 10 MG TAB PO PRN (22:00)
[2021-11-14] MEDS: BENZTROPINE MESYLATE 1 MG TAB PO SCH ×2 (08:19→23:10)
[2021-11-14] MEDS: LORazepam 0.5 MG TAB PO SCH (08:19)
--- NOTE | 2021-11-14 09:46 | Psychiatric Progress Note ---
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 He requires inpatient hospitalization for safety and monitoring. 11/14/21: improving. (1) Schizophrenia: 11/14/21: 1 more dose of Haldol 10 mg this hs, received Haldol dec 100 mg. Monitor for EPS and likely start Haldol 5 mg po for a few days tomorrow. Cogentin ongoing. d/c standing Ativan. Ambien to hs rather than prn and move room so has blinds and not was disturbed by nurses station. trazodone prn if ineffective. 11/13/21: 303 granted. d/c Clozaril and consolidate Haldol to hs. He is agreeing to CONDE when can determine appropriate dose. Continue MNPR. 11/12/21: Clozaril 100 mg po qhs. Will taper standing Ativan dosing. Some of his complaints today related to the prn Haldol given last 2 days so will continue same standing dose. Will offer CONDE Haldol dec soon. 303 hearing in am. 11/11/21: As on standing Haldol and Ativan, decrease frequency or PO prns. Patient has not been aggressive but will box the air and is still not sleeping well so MNPR remains in place. Increase Clozaril 75 mg po qhs. 11/10/21: add standing Cogentin BID and Ativan 1 mg TID. Fasting labs in am if will cooperate. MNPR for ongoing psychosis with poor boundaries. 11/09/21: The patient was admitted to the [facility] ([facility]) on q15 min checks (behavioral with suicide precautions) for safety. The patient will participate in group, recreational, and milieu therapies and will be offered additional individual and family sessions as clinically appropriate. He desires to resume his Clozaril and Haldol and has accepted 2 doses of Haldol 5 mg already without dystonia. Will begin 25 mg clozapine this hs and titrate with Haldol 5 mg BID pending more therapeutic level. He is not fully able to processes full risks/benefits but does voice a preference. Will likely need extended commitment and ultimately conversion to outpatient commitment with CONDE. Inventory Assets Strengths: interested in employment, taking PO meds Needs: outpatient care, CONDE Risk Factors Assessment Male: Yes : No Do You Have Access To A Gun?: No Mental Health Diagnoses: Yes Substance Use Disorders: No Previous Attempt: Yes Previous Psychiatric Hospitalization: Yes Protective Factors Assessment Stable Relationships: No Interval History Identifying Information LEXII TEE is a 31-year-old M who currently lives in alone in [place], has a history of schizophrenia, and was admitted on 11/08/21 19:01 on a 302 involuntary commitment for disorganized behavior. Chief Complaint "I am feeling less tired, yes I will take the shot". Review of Systems Sleep Information Total Hours of Sleep: 3.75 Sleep Comments: pt given ambien per rn. pt on q-15 minute checks Meal Information Percent Meal Consumed - Breakfast: 100 Percent Meal Consumed - Lunch: 100 Percent Meal Consumed - Dinner: 100 Subjective Subjective Patient was seen & assessed and interval progress reviewed with nursing and social work. Still not sleeping well, Ambien was effective for a few hours and he feels it was helpful. 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 He is more organized and better able to communicate needs with staff. accepted Haldol depot. Physical Exam Psychiatric Orientation: alert, oriented to person and oriented to place Apperance: appropriately dressed and appropriately groomed Eye Contact: + fair eye contact Motor Behavior: no abnormal motor movements Speech: no pressured speech and + abnormal rate/rhythm/volume of speech (stutter (apparently baseline)) Affect: + flat affect (with alexithymia) Mood: no depressed mood Thought Process: + tangential thought process Thought Content: no delusions Suicidal Thoughts: denies suicidal thoughts Homicidal Thoughts: denies homicidal thoughts Hallucinations: no auditory hallucinations and no visual hallucinations Cognition: attention grossly intact and language grossly intact Estimated Intelligence: consistent with education level Insight: + impaired insight Judgement: + impaired judgement Vital Signs (Past 24 Hours) Last Vital Signs Temp 36.4 C L 11/14/21 06:48 Pulse 89 11/14/21 06:49 Resp 18 11/14/21 06:48 BP 122/86 11/14/21 06:49 Pulse Ox 97 11/08/21 14:14 Results & Data ([facility]) Current Inpatient Medications Current Inpatient Medications: Current Inpatient Medications Acetaminophen (Acetaminophen 325 Mg Tab) 650 mg PO Q4H PRN PRN Reason: Headache or Minor Fever Stop: 12/08/21 19:00 Al Hydrox/Mg Hydrox/Simethicone (Aluminum/Magnesium Susp 30 Ml Udc) 30 ml PO Q4H PRN PRN Reason: GI Upset Stop: 12/08/21 19:00 Benztropine Mesylate (Benztropine Mesylate 1 Mg/Ml 2 Ml Amp) 1 mg IM Q8 PRN PRN Reason: Agitation Stop: 12/09/21 09:49 Benztropine Mesylate (Benztropine Mesylate 1 Mg Tab) 1 mg PO BID [facility] Stop: 12/13/21 20:59 Last Admin: 11/14/21 08:19 Dose: 1 mg Documented by: Bismuth Subsalicylate (Bismuth Subsalicylate Liqd 236 Ml) 15 ml PO PRN PRN PRN Reason: Loose Stool Stop: 12/08/21 19:00 Haloperidol (Haloperidol 5 Mg Tab) 5 mg PO Q6 PRN PRN Reason: Agitation Stop: 12/08/21 20:24 Haloperidol (Haloperidol 5 Mg Tab) 10 mg PO HS [facility] Stop: 12/13/21 21:59 Last Admin: 11/13/21 21:01 Dose: 10 mg Documented by: Haloperidol Lactate (Haloperidol Lactate 5 Mg/Ml 1 Ml Vial) 10 mg IM Q8 PRN PRN Reason: Anxiety/Agitation Stop: 12/09/21 09:49 Lorazepam (Lorazepam 2 Mg/1 Ml Vial) 2 mg IM Q6 PRN PRN Reason: Anxiety/Agitation Stop: 12/09/21 09:49 Lorazepam (Lorazepam 1 Mg Tab) 1 mg PO Q6 PRN PRN Reason: Anxiety/Agitation Stop: 12/09/21 09:49 Lorazepam (Lorazepam 0.5 Mg Tab) 0.5 mg PO [id number] [facility] Stop: 12/12/21 16:59 Last Admin: 11/14/21 08:19 Dose: 0.5 mg Documented by: Magnesium Hydroxide (Magnesium Hydroxide Susp 30 Ml Udc) 30 ml PO DAILY PRN PRN Reason: Constipation Stop: 12/08/21 19:00 Sodium Chloride (Sodium Chloride 0.65% Na Soln 45 Ml ([place])) 1 - 2 sprays NA PRN PRN PRN Reason: Nasal Dryness/Congestion Stop: 12/08/21 19:00 Zolpidem Tartrate (Zolpidem Tartrate 10 Mg Tab) 10 mg PO HS PRN PRN Reason: Sleep Stop: 12/13/21 21:59 Last Admin: 11/14/21 02:55 Dose: 10 mg Documented by: Mental Health & Subst Abuse Tx Therapist Name of Therapist: None Talent Acquisition Coordinator Name of Talent Acquisition Coordinator: [facility] Phone Number for Talent Acquisition Coordinator: [phone] Post Discharge Appointments Primary Care Physician Name Of Family Doctor: DEVYN Blair Primary Care Date of Appointment with PCP: 02/11/22 Time of Appointment with PCP: 10:20 a.m. Provider Appointment Comment: [facility] Contact Information Discharge Discharge Address: [address] [place] [address] [address], [place] [address] (1) Schizophrenia Schizophrenia type: disorganized schizophrenia Qualified Code(s): F20.1 - Disorganized schizophrenia
[2021-11-14] MEDS ORDERED: HALOPERIDOL DECANOATE INJ 50 MG/ML VIAL IM ONE (10:00)
[2021-11-14] MEDS ORDERED: traZODone HCL 50 MG TAB PO PRN (22:00)
[2021-11-14] MEDS: haloperidoL 5 MG TAB PO SCH (22:00)
[2021-11-14] MEDS: ZOLPIDEM TARTRATE 10 MG TAB PO SCH (23:10)
[2021-11-15] MEDS: haloperidoL 5 MG TAB PO PRN ×2 (07:33→13:00)
[2021-11-15] MEDS: BENZTROPINE MESYLATE 1 MG TAB PO SCH ×2 (07:33→21:19)
--- NOTE | 2021-11-15 09:28 | Psychiatric Progress Note ---
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 He requires inpatient hospitalization for safety and monitoring. 11/15/21: sleep remains disrupted, although not directed threatening appears agitated and menacing facial expressions today. Upset with LOS. (1) Schizophrenia: 11/15/21: consolidating Haldol at hs did not help sleep and now more agitated in am though could also be related to Ativan taper. Will shift back to Haldol 5 mg BID. Dose of dec was chosen based on previous dystonia on 150 mg monthly, that was in combo with Clozaril which he is currently not willing to take. If persists, consider addition of an atypical ?Latuda (for reference: past med trials of Abilify, Seroquel, Zyprexa, thorazine, but not Latuda or Invega). 11/14/21: 1 more dose of Haldol 10 mg this hs, received Haldol dec 100 mg. Monitor for EPS and likely start Haldol 5 mg po for a few days tomorrow. Cogentin ongoing. d/c standing Ativan. Ambien to hs rather than prn and move room so has blinds and not was disturbed by nurses station. trazodone prn if ineffective. 11/13/21: 303 granted. d/c Clozaril and consolidate Haldol to hs. He is agreeing to CONDE when can determine appropriate dose. Continue MNPR. 11/12/21: Clozaril 100 mg po qhs. Will taper standing Ativan dosing. Some of his complaints today related to the prn Haldol given last 2 days so will continue same standing dose. Will offer CONDE Haldol dec soon. 303 hearing in am. 11/11/21: As on standing Haldol and Ativan, decrease frequency or PO prns. Patient has not been aggressive but will box the air and is still not sleeping well so MNPR remains in place. Increase Clozaril 75 mg po qhs. 11/10/21: add standing Cogentin BID and Ativan 1 mg TID. Fasting labs in am if will cooperate. MNPR for ongoing psychosis with poor boundaries. 11/09/21: The patient was admitted to the [facility] (locked inpatient mental health unit) on q15 min checks (behavioral with suicide precautions) for safety. The patient will participate in group, recreational, and milieu therapies and will be offered additional individual and family sessions as clinically appropriate. He desires to resume his Clozaril and Haldol and has accepted 2 doses of Haldol 5 mg already without dystonia. Will begin 25 mg clozapine this hs and titrate with Haldol 5 mg BID pending more therapeutic level. He is not fully able to processes full risks/benefits but does voice a preference. Will likely need extended commitment and ultimately conversion to outpatient commitment with CONDE. Inventory Assets Strengths: interested in employment, taking PO meds Needs: outpatient care, CONDE Risk Factors Assessment Male: Yes : No Do You Have Access To A Gun?: No Mental Health Diagnoses: Yes Substance Use Disorders: No Previous Attempt: Yes Previous Psychiatric Hospitalization: Yes Protective Factors Assessment Stable Relationships: No Interval History Identifying Information LEXII TEE is a 31-year-old M who currently lives in alone in [place], has a history of schizophrenia, and was admitted on 11/08/21 19:01 on a 302 involuntary commitment for disorganized behavior. Chief Complaint increased psychomotor activity Review of Systems Sleep Information Total Hours of Sleep: 5 Sleep Comments: pt given ambien per rn. pt on q-15 minute checks Meal Information Percent Meal Consumed - Breakfast: 100 Percent Meal Consumed - Lunch: 100 Percent Meal Consumed - Dinner: 100 Subjective Subjective Patient was seen & assessed and interval progress reviewed with treatment team. After 2 "good days", patient is more restless today, required prn Haldol and Ativan. His CM appointment was rescheduled. He was very irritable around his length of stay and is still not sleeping very well thought last night improved from previous. Pacing. Made hand gestures as if carrying a weapon. Will not make eye contact while he is eating or answer my direct questions. Physical Exam Psychiatric Orientation: alert, oriented to person and oriented to place Apperance: appropriately dressed and appropriately groomed Eye Contact: + poor eye contact Affect: + flat affect (with alexithymia) Mood: no depressed mood Thought Process: + tangential thought process Thought Content: + paranoid and + delusions Suicidal Thoughts: denies suicidal thoughts Homicidal Thoughts: denies homicidal thoughts Hallucinations: + auditory hallucinations (appears to be responding to stimuli) Cognition: language grossly intact; + attention not intact Estimated Intelligence: consistent with education level Insight: + severely impaired insight Judgement: + severely impaired judgement Vital Signs (Past 24 Hours) Last Vital Signs Temp 36.2 C L 11/15/21 06:25 Pulse 94 H 11/15/21 06:26 Resp 16 11/15/21 06:25 BP 123/84 11/15/21 06:26 Pulse Ox 97 11/08/21 14:14 Results & Data ([facility]) Current Inpatient Medications Current Inpatient Medications: Current Inpatient Medications Acetaminophen (Acetaminophen 325 Mg Tab) 650 mg PO Q4H PRN PRN Reason: Headache or Minor Fever Stop: 12/08/21 19:00 Al Hydrox/Mg Hydrox/Simethicone (Aluminum/Magnesium Susp 30 Ml Udc) 30 ml PO Q4H PRN PRN Reason: GI Upset Stop: 12/08/21 19:00 Benztropine Mesylate (Benztropine Mesylate 1 Mg/Ml 2 Ml Amp) 1 mg IM Q8 PRN PRN Reason: Agitation Stop: 12/09/21 09:49 Benztropine Mesylate (Benztropine Mesylate 1 Mg Tab) 1 mg PO BID [facility] Stop: 12/13/21 20:59 Last Admin: 11/15/21 07:33 Dose: 1 mg Documented by: Bismuth Subsalicylate (Bismuth Subsalicylate Liqd 236 Ml) 15 ml PO PRN PRN PRN Reason: Loose Stool Stop: 12/08/21 19:00 Haloperidol (Haloperidol 5 Mg Tab) 5 mg PO Q6 PRN PRN Reason: Agitation Stop: 12/08/21 20:24 Last Admin: 11/15/21 07:33 Dose: 5 mg Documented by: Haloperidol Lactate (Haloperidol Lactate 5 Mg/Ml 1 Ml Vial) 10 mg IM Q8 PRN PRN Reason: Anxiety/Agitation Stop: 12/09/21 09:49 Lorazepam (Lorazepam 2 Mg/1 Ml Vial) 2 mg IM Q6 PRN PRN Reason: Anxiety/Agitation Stop: 12/09/21 09:49 Lorazepam (Lorazepam 1 Mg Tab) 1 mg PO Q6 PRN PRN Reason: Anxiety/Agitation Stop: 12/09/21 09:49 Magnesium Hydroxide (Magnesium Hydroxide Susp 30 Ml Udc) 30 ml PO DAILY PRN PRN Reason: Constipation Stop: 12/08/21 19:00 Sodium Chloride (Sodium Chloride 0.65% Na Soln 45 Ml ([place])) 1 - 2 sprays NA PRN PRN PRN Reason: Nasal Dryness/Congestion Stop: 12/08/21 19:00 Trazodone HCl (Trazodone Hcl 50 Mg Tab) 50 mg PO HS PRN PRN Reason: Insomnia Stop: 12/14/21 21:59 Zolpidem Tartrate (Zolpidem Tartrate 10 Mg Tab) 10 mg PO HS [facility] Stop: 12/14/21 21:59 Last Admin: 11/14/21 23:10 Dose: 10 mg Documented by: Mental Health & Subst Abuse Tx Psychiatrist Name of Psychiatrist: Katie cSott Psychiatrist's Date of Appointment with Psychiatrist: 12/13/21 Time of Appointment with Psychiatrist: 2:30 p.m. Psychiatric Appointment Comment: [facility] Therapist Name of Therapist: None Video Network Engineer Name of Video Network Engineer: [facility] - [facility] Phone Number for Video Network Engineer: [phone] Post Discharge Appointments Primary Care Physician Name Of Family Doctor: DEVYN Blair Primary Care Date of Appointment with PCP: 02/11/22 Time of Appointment with PCP: 10:20 a.m. Provider Appointment Comment: [address] [facility] Contact Information Discharge Discharge Address: [address] [place] [address], [place] [address] (1) Schizophrenia Schizophrenia type: disorganized schizophrenia Qualified Code(s): F20.1 - Disorganized schizophrenia
[2021-11-15] MEDS: LORazepam 1 MG TAB PO PRN (10:26)
[2021-11-15] MEDS ORDERED: COVID-19 VACC, TRIS(PFIZER)/PF 30 MCG/0.3 ML VIAL IM ONE (15:23)
[2021-11-15] MEDS ORDERED: haloperidoL 5 MG TAB PO SCH ×2 (17:15)
[2021-11-15] MEDS: haloperidoL 5 MG TAB PO SCH (17:24)
[2021-11-15] MEDS: ZOLPIDEM TARTRATE 10 MG TAB PO SCH (21:19)
[2021-11-16] MEDS: LORazepam 1 MG TAB PO PRN (04:16)
[2021-11-16] MEDS: haloperidoL 5 MG TAB PO SCH ×2 (07:57→17:58)
[2021-11-16] MEDS: BENZTROPINE MESYLATE 1 MG TAB PO SCH ×2 (07:57→21:59)
--- NOTE | 2021-11-16 09:45 | Psychiatric Progress Note ---
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 He requires inpatient hospitalization for safety and monitoring. 11/16/21: continues to have poor sleep, likely due to his shifted sleep/wake cycle from his job; remains withdrawn with periods of increased irritability and appears internally preoccupied. Tolerating haldol decanoate and po bridge with no signs for EPS. Will continue to evaluate if an additional antipsychotic is needed. Could consider addition of latuda versus risperidone versus further titration of haldol. (1) Schizophrenia: 11/16/21: Continue with haldol BID and haldol decanoate, sleep will likely remain somewhat disrupted overnight due to shifted sleep/wake cycle. Scheduled melatonin to help with this. Senna-colace scheduled. 11/15/21: consolidating Haldol at hs did not help sleep and now more agitated in am though could also be related to Ativan taper. Will shift back to Haldol 5 mg BID. Dose of dec was chosen based on previous dystonia on 150 mg monthly, that was in combo with Clozaril which he is currently not willing to take. If persists, consider addition of an atypical ?Latuda (for reference: past med trials of Abilify, Seroquel, Zyprexa, thorazine, but not Latuda or Invega). 11/14/21: 1 more dose of Haldol 10 mg this hs, received Haldol dec 100 mg. Monitor for EPS and likely start Haldol 5 mg po for a few days tomorrow. Yunior ongoing. d/c standing Ativan. Ambien to hs rather than prn and move room so has blinds and not was disturbed by nurses station. trazodone prn if ineffective. 11/13/21: 303 granted. d/c Clozaril and consolidate Haldol to hs. He is agreeing to CONDE when can determine appropriate dose. Continue MNPR. 11/12/21: Clozaril 100 mg po qhs. Will taper standing Ativan dosing. Some of his complaints today related to the prn Haldol given last 2 days so will continue same standing dose. Will offer CONDE Haldol dec soon. 303 hearing in am. 11/11/21: As on standing Haldol and Ativan, decrease frequency or PO prns. Patient has not been aggressive but will box the air and is still not sleeping well so MNPR remains in place. Increase Clozaril 75 mg po qhs. 11/10/21: add standing Cogentin BID and Ativan 1 mg TID. Fasting labs in am if will cooperate. MNPR for ongoing psychosis with poor boundaries. 11/09/21: The patient was admitted to the [facility] ([facility]) on q15 min checks (behavioral with suicide precautions) for safety. The patient will participate in group, recreational, and milieu therapies and will be offered additional individual and family sessions as clinically appropriate. He desires to resume his Clozaril and Haldol and has accepted 2 doses of Haldol 5 mg already without dystonia. Will begin 25 mg clozapine this hs and titrate with Haldol 5 mg BID pending more therapeutic level. He is not fully able to processes full risks/benefits but does voice a preference. Will likely need extended commitment and ultimately conversion to outpatient commitment with CONDE. Inventory Assets Strengths: interested in employment, taking PO meds Needs: outpatient care, CONDE Risk Factors Assessment Male: Yes : No Do You Have Access To A Gun?: No Mental Health Diagnoses: Yes Substance Use Disorders: No Previous Attempt: Yes Previous Psychiatric Hospitalization: Yes Protective Factors Assessment Stable Relationships: No Interval History Identifying Information LEXII TEE is a 31-year-old M who currently lives in alone in [place], has a history of schizophrenia, and was admitted on 11/08/21 19:01 on a 302 involuntary commitment for disorganized behavior. Chief Complaint "I don't want to take that clozaril again, it makes me sleep all day". Review of Systems Sleep Information Total Hours of Sleep: 4.0 Sleep Comments: pt given igor per rn. pt on q-15 minute checks Meal Information Percent Meal Consumed - Breakfast: 100 Percent Meal Consumed - Lunch: 100 Percent Meal Consumed - Dinner: 100 Subjective Subjective Patient was seen & assessed and interval progress reviewed with treatment team nursing and social work. He did not sleep well last night, he explains his work schedule is from 8pm-4am and that he then usually sleeps from 4am-12pm. After having breakfast he went back to sleep until about 12pm. Endorsed constipation last night but did have bowel movement this morning after about 1 week. Remains withdrawn with limited spontaneous engagement. Could only tolerate a brief conversation while walking. He denies any side effects from haldol including denying any akathisia/sense of restlessness. Will continue with haldol for now. Physical Exam Psychiatric Orientation: alert and oriented x 3 Apperance: appropriately dressed and appropriately groomed Eye Contact: + poor eye contact Motor Behavior: no abnormal motor movements Speech: no pressured speech and + abnormal rate/rhythm/volume of speech (stutter (apparently baseline)) Affect: + blunted affect Mood: no depressed mood Thought Process: + tangential thought process Thought Content: + paranoid and + delusions Suicidal Thoughts: denies suicidal thoughts Homicidal Thoughts: denies homicidal thoughts Hallucinations: + auditory hallucinations (appears to be responding to stimuli); no visual hallucinations Cognition: language grossly intact; + attention not intact Estimated Intelligence: consistent with education level Insight: + impaired insight Judgement: + impaired judgement Vital Signs (Past 24 Hours) Last Vital Signs Temp 36.3 C L 11/16/21 05:49 Pulse 111 H 11/16/21 05:50 Resp 18 11/16/21 05:49 BP 124/82 11/16/21 05:50 Pulse Ox 97 11/08/21 14:14 Results & Data ([facility]) Current Inpatient Medications Current Inpatient Medications: Current Inpatient Medications Acetaminophen (Acetaminophen 325 Mg Tab) 650 mg PO Q4H PRN PRN Reason: Headache or Minor Fever Stop: 12/08/21 19:00 Al Hydrox/Mg Hydrox/Simethicone (Aluminum/Magnesium Susp 30 Ml Udc) 30 ml PO Q4H PRN PRN Reason: GI Upset Stop: 12/08/21 19:00 Benztropine Mesylate (Benztropine Mesylate 1 Mg/Ml 2 Ml Amp) 1 mg IM Q8 PRN PRN Reason: Agitation Stop: 12/09/21 09:49 Benztropine Mesylate (Benztropine Mesylate 1 Mg Tab) 1 mg PO BID [facility] Stop: 12/13/21 20:59 Last Admin: 11/16/21 07:57 Dose: 1 mg Documented by: Bismuth Subsalicylate (Bismuth Subsalicylate Liqd 236 Ml) 15 ml PO PRN PRN PRN Reason: Loose Stool Stop: 12/08/21 19:00 Haloperidol (Haloperidol 5 Mg Tab) 5 mg PO Q6 PRN PRN Reason: Agitation Stop: 12/08/21 20:24 Last Admin: 11/15/21 13:00 Dose: 5 mg Documented by: Haloperidol (Haloperidol 5 Mg Tab) 5 mg PO BIDM [facility]O Stop: 12/15/21 17:44 Last Admin: 11/16/21 07:57 Dose: 5 mg Documented by: Haloperidol Lactate (Haloperidol Lactate 5 Mg/Ml 1 Ml Vial) 10 mg IM Q8 PRN PRN Reason: Anxiety/Agitation Stop: 12/09/21 09:49 Lorazepam (Lorazepam 2 Mg/1 Ml Vial) 2 mg IM Q6 PRN PRN Reason: Anxiety/Agitation Stop: 12/09/21 09:49 Lorazepam (Lorazepam 1 Mg Tab) 1 mg PO Q6 PRN PRN Reason: Anxiety/Agitation Stop: 12/09/21 09:49 Last Admin: 11/16/21 04:16 Dose: 1 mg Documented by: Magnesium Hydroxide (Magnesium Hydroxide Susp 30 Ml Udc) 30 ml PO DAILY PRN PRN Reason: Constipation Stop: 12/08/21 19:00 Last Admin: 11/16/21 05:51 Dose: 30 ml Documented by: Sodium Chloride (Sodium Chloride 0.65% Na Soln 45 Ml ([place])) 1 - 2 sprays NA PRN PRN PRN Reason: Nasal Dryness/Congestion Stop: 12/08/21 19:00 Trazodone HCl (Trazodone Hcl 50 Mg Tab) 50 mg PO HS PRN PRN Reason: Insomnia Stop: 12/14/21 21:59 Zolpidem Tartrate (Zolpidem Tartrate 10 Mg Tab) 10 mg PO HS [facility] Stop: 12/14/21 21:59 Last Admin: 11/15/21 21:19 Dose: 10 mg Documented by: Mental Health & Subst Abuse Tx Psychiatrist Name of Psychiatrist: Katie Scott Psychiatrist's Date of Appointment with Psychiatrist: 12/13/21 Time of Appointment with Psychiatrist: 2:30 p.m. Psychiatric Appointment Comment: [address] [facility] Therapist Name of Therapist: None Nutritionist Public Health Name of Nutritionist Public Health: [facility] Phone Number for Nutritionist Public Health: [phone] Post Discharge Appointments Primary Care Physician Name Of Family Doctor: DEVYN Blair Primary Care Date of Appointment with PCP: 02/11/22 Time of Appointment with PCP: 10:20 a.m. Provider Appointment Comment: [id number] [facility] Contact Information Discharge Discharge Address: [address] [place] [address], [place] [address] (1) Schizophrenia Schizophrenia type: disorganized schizophrenia Qualified Code(s): F20.1 - Disorganized schizophrenia
[2021-11-16] MEDS ORDERED: POLYETHYLENE (MIRALAX) 17 GM PACK PO PRN (13:26)
[2021-11-16] MEDS: ZOLPIDEM TARTRATE 10 MG TAB PO SCH (21:58)
[2021-11-16] MEDS: MELATONIN 3 MG TAB PO SCH (21:58)
[2021-11-17] MEDS: BENZTROPINE MESYLATE 1 MG TAB PO SCH ×2 (08:12→21:58)
[2021-11-17] MEDS: DOCUSATE SODIUM/SENNA 50/8.6MG TAB PO SCH (08:12)
[2021-11-17] MEDS: haloperidoL 5 MG TAB PO SCH ×2 (08:12→21:58)
[2021-11-17] MEDS: ACETAMINOPHEN 325 MG TAB PO PRN (08:12)
--- NOTE | 2021-11-17 08:44 | Psychiatric Progress Note ---
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 He requires inpatient hospitalization for safety and monitoring. 11/17/21: presents with ongoing active psychosis with significant guardedness and limited ability to tolerate any prolonged interactions or discussions. Did consent to increase in haldol. Declines discussion regarding alternative antipsychotic medications. (1) Schizophrenia: 11/17/21: Increase haldol to 5mg qAM and 10mg qHS. 11/16/21: Continue with haldol BID and haldol decanoate, sleep will likely remain somewhat disrupted overnight due to shifted sleep/wake cycle. Scheduled melatonin to help with this. Senna-colace scheduled. 11/15/21: consolidating Haldol at hs did not help sleep and now more agitated in am though could also be related to Ativan taper. Will shift back to Haldol 5 mg BID. Dose of dec was chosen based on previous dystonia on 150 mg monthly, that was in combo with Clozaril which he is currently not willing to take. If persists, consider addition of an atypical ?Latuda (for reference: past med trials of Abilify, Seroquel, Zyprexa, thorazine, but not Latuda or Invega). 11/14/21: 1 more dose of Haldol 10 mg this hs, received Haldol dec 100 mg. Monitor for EPS and likely start Haldol 5 mg po for a few days tomorrow. Cogentin ongoing. d/c standing Ativan. Ambien to hs rather than prn and move room so has blinds and not was disturbed by nurses station. trazodone prn if ineffective. 11/13/21: 303 granted. d/c Clozaril and consolidate Haldol to hs. He is agreeing to CONDE when can determine appropriate dose. Continue MNPR. 11/12/21: Clozaril 100 mg po qhs. Will taper standing Ativan dosing. Some of his complaints today related to the prn Haldol given last 2 days so will continue same standing dose. Will offer CONDE Haldol dec soon. 303 hearing in am. 11/11/21: As on standing Haldol and Ativan, decrease frequency or PO prns. Patient has not been aggressive but will box the air and is still not sleeping well so MNPR remains in place. Increase Clozaril 75 mg po qhs. 11/10/21: add standing Cogentin BID and Ativan 1 mg TID. Fasting labs in am if will cooperate. MNPR for ongoing psychosis with poor boundaries. 11/09/21: The patient was admitted to the [facility] ([facility]) on q15 min checks (behavioral with suicide precautions) for safety. The patient will participate in group, recreational, and milieu therapies and will be offered additional individual and family sessions as clinically appropriate. He desires to resume his Clozaril and Haldol and has accepted 2 doses of Haldol 5 mg already without dystonia. Will begin 25 mg clozapine this hs and titrate with Haldol 5 mg BID pending more therapeutic level. He is not fully able to processes full risks/benefits but does voice a preference. Will likely need extended commitment and ultimately conversion to outpatient commitment with CONDE. Inventory Assets Strengths: interested in employment, taking PO meds Needs: outpatient care, CONDE Risk Factors Assessment Male: Yes : No Do You Have Access To A Gun?: No Mental Health Diagnoses: Yes Substance Use Disorders: No Previous Attempt: Yes Previous Psychiatric Hospitalization: Yes Protective Factors Assessment Stable Relationships: No Interval History Identifying Information LEXII TEE is a 31-year-old M who currently lives in alone in [place], has a history of schizophrenia, and was admitted on 11/08/21 19:01 on a 302 involuntary commitment for disorganized behavior. Chief Complaint "It's because I'm confined here". Review of Systems Sleep Information Total Hours of Sleep: 4.75 Sleep Comments: pt given igor per rn. pt on q-15 minute checks Meal Information Percent Meal Consumed - Breakfast: 100 Percent Meal Consumed - Lunch: 100 Percent Meal Consumed - Dinner: 100 Subjective Subjective Patient was seen & assessed and interval progress reviewed with treatment team nursing and social work. Slept about 5 hours last night. Very minimal engagement, one word answers and walking away during conversation. Had some knee pain this morning and took tylenol with good relief. Briefly attended one group for a few minutes and then walked away. Making some bizarre gestures. Only able to tolerate very brief discussion with me. Appears somewhat restless but when asked he denies any physical discomfort stating "it's beacuse I'm confined here". Mumbles incoherently at times. Appears to be responding to internal stimuli. Denies auditory hallucinations. Declines starting any additional antipsychotics such as risperidone or latuda but does agree to haldol increase. Physical Exam Psychiatric Orientation: alert, oriented x 3, oriented to person and oriented to place Apperance: appropriately dressed and appropriately groomed Eye Contact: + poor eye contact Motor Behavior: no abnormal motor movements Speech: no pressured speech and + abnormal rate/rhythm/volume of speech (stutter (apparently baseline)) Affect: + flat affect (with alexithymia) and + blunted affect Mood: + anxious mood; no depressed mood Thought Process: + tangential thought process and + looseness of associations Thought Content: + paranoid and + delusions Suicidal Thoughts: denies suicidal thoughts Homicidal Thoughts: denies homicidal thoughts Hallucinations: + auditory hallucinations (appears to be responding to stimuli); no visual hallucinations Cognition: language grossly intact; + attention not intact Estimated Intelligence: consistent with education level Insight: + severely impaired insight Judgement: + impaired judgement Vital Signs (Past 24 Hours) Last Vital Signs Temp 36.9 C 11/17/21 06:31 Pulse 89 11/17/21 06:32 Resp 18 11/17/21 06:31 BP 131/88 11/17/21 06:32 Pulse Ox 97 11/08/21 14:14 Results & Data ([facility]) Current Inpatient Medications Current Inpatient Medications: Current Inpatient Medications Acetaminophen (Acetaminophen 325 Mg Tab) 650 mg PO Q4H PRN PRN Reason: Headache or Minor Fever Stop: 12/08/21 19:00 Last Admin: 11/17/21 08:12 Dose: 650 mg Documented by: Al Hydrox/Mg Hydrox/Simethicone (Aluminum/Magnesium Susp 30 Ml Udc) 30 ml PO Q4H PRN PRN Reason: GI Upset Stop: 12/08/21 19:00 Benztropine Mesylate (Benztropine Mesylate 1 Mg/Ml 2 Ml Amp) 1 mg IM Q8 PRN PRN Reason: Agitation Stop: 12/09/21 09:49 Benztropine Mesylate (Benztropine Mesylate 1 Mg Tab) 1 mg PO BID LINO Stop: 12/13/21 20:59 Last Admin: 11/17/21 08:12 Dose: 1 mg Documented by: Bismuth Subsalicylate (Bismuth Subsalicylate Liqd 236 Ml) 15 ml PO PRN PRN PRN Reason: Loose Stool Stop: 12/08/21 19:00 Haloperidol (Haloperidol 5 Mg Tab) 5 mg PO Q6 PRN PRN Reason: Agitation Stop: 12/08/21 20:24 Last Admin: 11/15/21 13:00 Dose: 5 mg Documented by: Haloperidol (Haloperidol 5 Mg Tab) 5 mg PO BIDM [facility] Stop: 12/15/21 17:44 Last Admin: 11/17/21 08:12 Dose: 5 mg Documented by: Haloperidol Lactate (Haloperidol Lactate 5 Mg/Ml 1 Ml Vial) 10 mg IM Q8 PRN PRN Reason: Anxiety/Agitation Stop: 12/09/21 09:49 Lorazepam (Lorazepam 2 Mg/1 Ml Vial) 2 mg IM Q6 PRN PRN Reason: Anxiety/Agitation Stop: 12/09/21 09:49 Lorazepam (Lorazepam 1 Mg Tab) 1 mg PO Q6 PRN PRN Reason: Anxiety/Agitation Stop: 12/09/21 09:49 Last Admin: 11/16/21 04:16 Dose: 1 mg Documented by: Magnesium Hydroxide (Magnesium Hydroxide Susp 30 Ml Udc) 30 ml PO DAILY PRN PRN Reason: Constipation Stop: 12/08/21 19:00 Last Admin: 11/16/21 05:51 Dose: 30 ml Documented by: Melatonin (Melatonin 3 Mg Tab) 3 mg PO HS [facility] Stop: 12/16/21 21:59 Last Admin: 11/16/21 21:58 Dose: 3 mg Documented by: Polyethylene Glycol (Polyethylene (Miralax) 17 Gm Pack) 17 gm PO DAILY PRN PRN Reason: Constipation Stop: 12/16/21 13:25 Senna/Docusate Sodium (Docusate Sodium/Senna 50/8.6mg Tab) 1 tab PO QAM [facility] Stop: 12/17/21 08:59 Last Admin: 11/17/21 08:12 Dose: 1 tab Documented by: Sodium Chloride (Sodium Chloride 0.65% Na Soln 45 Ml ([place])) 1 - 2 sprays NA PRN PRN PRN Reason: Nasal Dryness/Congestion Stop: 12/08/21 19:00 Trazodone HCl (Trazodone Hcl 50 Mg Tab) 50 mg PO HS PRN PRN Reason: Insomnia Stop: 12/14/21 21:59 Zolpidem Tartrate (Zolpidem Tartrate 10 Mg Tab) 10 mg PO HS [facility]O Stop: 12/14/21 21:59 Last Admin: 11/16/21 21:58 Dose: 10 mg Documented by: Mental Health & Subst Abuse Tx Psychiatrist Name of Psychiatrist: Katie Scott Psychiatrist's Date of Appointment with Psychiatrist: 12/13/21 Time of Appointment with Psychiatrist: 2:30 p.m. Psychiatric Appointment Comment: [address] [facility] Therapist Name of Therapist: None Green Building Design Specialist Name of Green Building Design Specialist: [facility] [place] [place] Phone Number for Green Building Design Specialist: [phone] Post Discharge Appointments Primary Care Physician Name Of Family Doctor: DEVYN Blair [facility] Date of Appointment with PCP: 02/11/22 Time of Appointment with PCP: 10:20 a.m. Provider Appointment Comment: [address] [facility] Contact Information Discharge Discharge Address: [address] [place] [address], [place] [address] (1) Schizophrenia Schizophrenia type: disorganized schizophrenia Qualified Code(s): F20.1 - Disorganized schizophrenia
[2021-11-17] MEDS: ZOLPIDEM TARTRATE 10 MG TAB PO SCH (21:58)
[2021-11-17] MEDS: MELATONIN 3 MG TAB PO SCH (21:58)
[2021-11-18] MEDS: BENZTROPINE MESYLATE 1 MG TAB PO SCH ×2 (07:24→21:14)
[2021-11-18] MEDS: DOCUSATE SODIUM/SENNA 50/8.6MG TAB PO SCH (07:25)
[2021-11-18] MEDS: haloperidoL 5 MG TAB PO PRN (07:25)
--- NOTE | 2021-11-18 09:40 | Psychiatric Progress Note ---
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 He requires inpatient hospitalization for safety and monitoring. 11/18/21: Continues to present as guarded, withdrawn, disorganized behaviors and appears to be actively responding to internal stimuli consistent with acute psychosis. EKG to assess QTc due to need for ongoing haldol titration and additional prn doses was reassuring <500ms. No signs of acute dystonia nor EPS. If continues to tolerate higher po dose of haldol will likely give additional 50mg of decanoate on 11/20/21 if he consents. MNPR due to acute psychosis, disorganized behavior, limited ability to tolerate peer interactions. (1) Schizophrenia: 11/18/21: Continue with haldol 5mg qlunch & 10mg qhs along with haldol 5 mg prn TID prn. EKG ordered for QTc evaluation. 11/17/21: Increase haldol to 5mg qAM and 10mg qHS. 11/16/21: Continue with haldol BID and haldol decanoate, sleep will likely remain somewhat disrupted overnight due to shifted sleep/wake cycle. Scheduled melatonin to help with this. Senna-colace scheduled. 11/15/21: consolidating Haldol at hs did not help sleep and now more agitated in am though could also be related to Ativan taper. Will shift back to Haldol 5 mg BID. Dose of dec was chosen based on previous dystonia on 150 mg monthly, that was in combo with Clozaril which he is currently not willing to take. If persists, consider addition of an atypical ?Latuda (for reference: past med trials of Abilify, Seroquel, Zyprexa, thorazine, but not Latuda or Invega). 11/14/21: 1 more dose of Haldol 10 mg this hs, received Haldol dec 100 mg. Monitor for EPS and likely start Haldol 5 mg po for a few days tomorrow. Yunior ongoing. d/c standing Ativan. Ambien to hs rather than prn and move room so has blinds and not was disturbed by nurses station. trazodone prn if ineffective. 11/13/21: 303 granted. d/c Clozaril and consolidate Haldol to hs. He is agreeing to CONDE when can determine appropriate dose. Continue MNPR. 11/12/21: Clozaril 100 mg po qhs. Will taper standing Ativan dosing. Some of his complaints today related to the prn Haldol given last 2 days so will continue same standing dose. Will offer CONDE Haldol dec soon. 303 hearing in am. 11/11/21: As on standing Haldol and Ativan, decrease frequency or PO prns. Patient has not been aggressive but will box the air and is still not sleeping well so MNPR remains in place. Increase Clozaril 75 mg po qhs. 11/10/21: add standing Cogentin BID and Ativan 1 mg TID. Fasting labs in am if will cooperate. MNPR for ongoing psychosis with poor boundaries. 11/09/21: The patient was admitted to the [facility] ([facility]) on q15 min checks (behavioral with suicide precautions) for safety. The patient will participate in group, recreational, and milieu therapies and will be offered additional individual and family sessions as clinically appropriate. He desires to resume his Clozaril and Haldol and has accepted 2 doses of Haldol 5 mg already without dystonia. Will begin 25 mg clozapine this hs and titrate with Haldol 5 mg BID pending more therapeutic level. He is not fully able to processes full risks/benefits but does voice a preference. Will likely need extended commitment and ultimately conversion to outpatient commitment with CONDE. Inventory Assets Strengths: interested in employment, taking PO meds Needs: outpatient care, CONDE Risk Factors Assessment Male: Yes : No Do You Have Access To A Gun?: No Mental Health Diagnoses: Yes Substance Use Disorders: No Previous Attempt: Yes Previous Psychiatric Hospitalization: Yes Protective Factors Assessment Stable Relationships: No Interval History Identifying Information LEXII TEE is a 31-year-old M who currently lives in alone in [place], has a history of schizophrenia, and was admitted on 11/08/21 19:01 on a 302 involuntary commitment for disorganized behavior. Chief Complaint "I'm ok". Review of Systems Sleep Information Total Hours of Sleep: 7.25 Sleep Comments: pt given meraryien per rn. pt on q-15 minute checks Meal Information Percent Meal Consumed - Breakfast: 100 Percent Meal Consumed - Lunch: 100 Percent Meal Consumed - Dinner: 100 Subjective Subjective Patient was seen & assessed and interval progress reviewed with treatment team nursing and social work. Up early this morning and received haldol prn due to bizarre and disorganized behavior with appearance of responding to lots of internal stimuli. later in afternoon observed sitting in TV area near peers but with his shirt pulled over his head. Reports his mood is "I'm fine" and denies any side effects from haldol. Remains somewhat ruminative about fears of getting COVID but reassured by discussion about benefits of the booster vaccine he received and option to wear a mask which he requested. With encouragement attended an afternoon group. Physical Exam Psychiatric Orientation: alert, oriented x 3, oriented to person and oriented to place Apperance: appropriately dressed and appropriately groomed Eye Contact: + fair eye contact Motor Behavior: no abnormal motor movements Speech: no pressured speech and + abnormal rate/rhythm/volume of speech (stutter (apparently baseline)) Affect: + blunted affect Mood: + anxious mood; no depressed mood Thought Process: + tangential thought process and + looseness of associations Thought Content: + paranoid and + delusions Suicidal Thoughts: denies suicidal thoughts Homicidal Thoughts: denies homicidal thoughts Hallucinations: + auditory hallucinations (appears to be responding to stimuli); no visual hallucinations Cognition: language grossly intact; + attention not intact Estimated Intelligence: consistent with education level Insight: + impaired insight Judgement: + impaired judgement Vital Signs (Past 24 Hours) Last Vital Signs Temp 36.7 C 11/18/21 08:09 Pulse 83 11/18/21 08:09 Resp 16 11/18/21 08:09 BP 115/71 11/18/21 08:09 Pulse Ox 97 11/08/21 14:14 Results & Data ([facility]) Current Inpatient Medications Current Inpatient Medications: Current Inpatient Medications Acetaminophen (Acetaminophen 325 Mg Tab) 650 mg PO Q4H PRN PRN Reason: Headache or Minor Fever Stop: 12/08/21 19:00 Last Admin: 11/17/21 08:12 Dose: 650 mg Documented by: Al Hydrox/Mg Hydrox/Simethicone (Aluminum/Magnesium Susp 30 Ml Udc) 30 ml PO Q4H PRN PRN Reason: GI Upset Stop: 12/08/21 19:00 Benztropine Mesylate (Benztropine Mesylate 1 Mg/Ml 2 Ml Amp) 1 mg IM Q8 PRN PRN Reason: Agitation Stop: 12/09/21 09:49 Benztropine Mesylate (Benztropine Mesylate 1 Mg Tab) 1 mg PO BID [facility] Stop: 12/13/21 20:59 Last Admin: 11/18/21 07:24 Dose: 1 mg Documented by: Bismuth Subsalicylate (Bismuth Subsalicylate Liqd 236 Ml) 15 ml PO PRN PRN PRN Reason: Loose Stool Stop: 12/08/21 19:00 Haloperidol (Haloperidol 5 Mg Tab) 5 mg PO Q6 PRN PRN Reason: Agitation Stop: 12/08/21 20:24 Last Admin: 11/18/21 07:25 Dose: 5 mg Documented by: Haloperidol (Haloperidol 5 Mg Tab) 5 mg PO DAILYBL [facility] Stop: 12/18/21 11:59 Haloperidol (Haloperidol 5 Mg Tab) 10 mg PO HS [facility] Stop: 12/17/21 21:59 Last Admin: 11/17/21 21:58 Dose: 10 mg Documented by: Haloperidol Lactate (Haloperidol Lactate 5 Mg/Ml 1 Ml Vial) 10 mg IM Q8 PRN PRN Reason: Anxiety/Agitation Stop: 12/09/21 09:49 Lorazepam (Lorazepam 2 Mg/1 Ml Vial) 2 mg IM Q6 PRN PRN Reason: Anxiety/Agitation Stop: 12/09/21 09:49 Lorazepam (Lorazepam 1 Mg Tab) 1 mg PO Q6 PRN PRN Reason: Anxiety/Agitation Stop: 12/09/21 09:49 Last Admin: 11/16/21 04:16 Dose: 1 mg Documented by: Magnesium Hydroxide (Magnesium Hydroxide Susp 30 Ml Udc) 30 ml PO DAILY PRN PRN Reason: Constipation Stop: 12/08/21 19:00 Last Admin: 11/16/21 05:51 Dose: 30 ml Documented by: Melatonin (Melatonin 3 Mg Tab) 3 mg PO HS [facility] Stop: 12/16/21 21:59 Last Admin: 11/17/21 21:58 Dose: 3 mg Documented by: Polyethylene Glycol (Polyethylene (Miralax) 17 Gm Pack) 17 gm PO DAILY PRN PRN Reason: Constipation Stop: 12/16/21 13:25 Senna/Docusate Sodium (Docusate Sodium/Senna 50/8.6mg Tab) 1 tab PO QAM [facility] Stop: 12/17/21 08:59 Last Admin: 11/18/21 07:25 Dose: 1 tab Documented by: Sodium Chloride (Sodium Chloride 0.65% Na Soln 45 Ml ([place])) 1 - 2 sprays NA PRN PRN PRN Reason: Nasal Dryness/Congestion Stop: 12/08/21 19:00 Trazodone HCl (Trazodone Hcl 50 Mg Tab) 50 mg PO HS PRN PRN Reason: Insomnia Stop: 12/14/21 21:59 Zolpidem Tartrate (Zolpidem Tartrate 10 Mg Tab) 10 mg PO HS [facility] Stop: 12/14/21 21:59 Last Admin: 11/17/21 21:58 Dose: 10 mg Documented by: Mental Health & Subst Abuse Tx Psychiatrist Name of Psychiatrist: Katie Scott Psychiatrist's Date of Appointment with Psychiatrist: 12/13/21 Time of Appointment with Psychiatrist: 2:30 p.m. Psychiatric Appointment Comment: [address] [facility] Therapist Name of Therapist: None Tray Setter Name of Tray Setter: [facility] [place] [place] Phone Number for Tray Setter: [phone] Post Discharge Appointments Primary Care Physician Name Of Family Doctor: DEVYN Blair Primary [facility] Date of Appointment with PCP: 02/11/22 Time of Appointment with PCP: 10:20 a.m. Provider Appointment Comment: [address] [facility] Contact Information Discharge Discharge Address: [address] [place] [address], [place] [address] (1) Schizophrenia Schizophrenia type: disorganized schizophrenia Qualified Code(s): F20.1 - Disorganized schizophrenia
[2021-11-18] MEDS: haloperidoL 5 MG TAB PO SCH ×2 (12:14→21:14)
[2021-11-18] MEDS: ZOLPIDEM TARTRATE 10 MG TAB PO SCH (21:15)
[2021-11-18] MEDS: MELATONIN 3 MG TAB PO SCH (21:15)
--- NOTE | 2021-11-18 23:14 | Electrocardiogram Report ---
Test Reason : Blood Pressure : / mmHG Vent. Rate : 075 BPM Atrial Rate : 075 BPM P-R Int : 142 ms QRS Dur : 088 ms QT Int : 372 ms P-R-T Axes : 064 041 031 degrees QTc Int : 415 ms Normal sinus rhythm ST elevation, consider early repolarization, pericarditis, or injury When compared with ECG of 19-MAY-2020 16:01, No significant change was found Confirmed by Clarence Borja ([id number]) on 11/18/2021 11:13:56 PM Referred By: REFERRED SELF Confirmed By:Clarence Borja
[2021-11-19] MEDS: LORazepam 1 MG TAB PO PRN ×2 (04:24→18:16)
[2021-11-19] MEDS: haloperidoL 5 MG TAB PO PRN ×2 (04:25→18:16)
[2021-11-19] MEDS: DOCUSATE SODIUM/SENNA 50/8.6MG TAB PO SCH (08:21)
[2021-11-19] MEDS: BENZTROPINE MESYLATE 1 MG TAB PO SCH ×2 (08:21→21:52)
--- NOTE | 2021-11-19 08:35 | Psychiatric Progress Note ---
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 He requires inpatient hospitalization for safety and monitoring. 11/19/21: Continues to present as guarded, withdrawn, disorganized behaviors and appears to be actively responding to internal stimuli consistent with acute psychosis though attending more groups. He consents to additional haldol decanoate dose of 50mg given titration of po dose to 15 mg scheduled and up to 25mg per day with prn doses. Reviewed risks of decanoate injection including but not limited to EPS-acute dystonia and injection site pain. He consents and recalls that he used to get haldol decanoate 150mg IM monthly. Remains uninterested in any other antipsychotic medications including clozapine. MNPR due to acute psychosis, disorganized behavior, limited ability to tolerate peer interactions. (1) Schizophrenia: 11/19/21: Continue with haldol po and haldol decanoate 50mg IM tomorrow. Will reduce prns in coming days/weeks due to additional decanoate dose. 11/18/21: Continue with haldol 5mg qlunch & 10mg qhs along with haldol 5 mg prn TID prn. EKG ordered for QTc evaluation. 11/17/21: Increase haldol to 5mg qAM and 10mg qHS. 11/16/21: Continue with haldol BID and haldol decanoate, sleep will likely remain somewhat disrupted overnight due to shifted sleep/wake cycle. Scheduled melatonin to help with this. Senna-colace scheduled. 11/15/21: consolidating Haldol at hs did not help sleep and now more agitated in am though could also be related to Ativan taper. Will shift back to Haldol 5 mg BID. Dose of dec was chosen based on previous dystonia on 150 mg monthly, that was in combo with Clozaril which he is currently not willing to take. If persists, consider addition of an atypical ?Latuda (for reference: past med trials of Abilify, Seroquel, Zyprexa, thorazine, but not Latuda or Invega). 11/14/21: 1 more dose of Haldol 10 mg this hs, received Haldol dec 100 mg. Monitor for EPS and likely start Haldol 5 mg po for a few days tomorrow. Cogentin ongoing. d/c standing Ativan. Ambien to hs rather than prn and move room so has blinds and not was disturbed by nurses station. trazodone prn if ineffective. 11/13/21: 303 granted. d/c Clozaril and consolidate Haldol to hs. He is agreeing to CONDE when can determine appropriate dose. Continue MNPR. 11/12/21: Clozaril 100 mg po qhs. Will taper standing Ativan dosing. Some of his complaints today related to the prn Haldol given last 2 days so will continue same standing dose. Will offer CONDE Haldol dec soon. 303 hearing in am. 11/11/21: As on standing Haldol and Ativan, decrease frequency or PO prns. Patient has not been aggressive but will box the air and is still not sleeping well so MNPR remains in place. Increase Clozaril 75 mg po qhs. 11/10/21: add standing Cogentin BID and Ativan 1 mg TID. Fasting labs in am if will cooperate. MNPR for ongoing psychosis with poor boundaries. 11/09/21: The patient was admitted to the [facility] ([facility] unit) on q15 min checks (behavioral with suicide precautions) for safety. The patient will participate in group, recreational, and milieu therapies and will be offered additional individual and family sessions as clinically appropriate. He desires to resume his Clozaril and Haldol and has accepted 2 doses of Haldol 5 mg already without dystonia. Will begin 25 mg clozapine this hs and titrate with Haldol 5 mg BID pending more therapeutic level. He is not fully able to processes full risks/benefits but does voice a preference. Will likely need extended commitment and ultimately conversion to outpatient commitment with CONDE. Inventory Assets Strengths: interested in employment, taking PO meds Needs: outpatient care, CONDE Risk Factors Assessment Male: Yes : No Do You Have Access To A Gun?: No Mental Health Diagnoses: Yes Substance Use Disorders: No Previous Attempt: Yes Previous Psychiatric Hospitalization: Yes Protective Factors Assessment Stable Relationships: No Interval History Identifying Information LEXII TEE is a 31-year-old M who currently lives in alone in [place], has a history of schizophrenia, and was admitted on 11/08/21 19:01 on a 302 involuntary commitment for disorganized behavior. Chief Complaint "I'm fine". Review of Systems Sleep Information Total Hours of Sleep: 4 Sleep Comments: Pt was pacing on the unit and required meds. Meal Information Percent Meal Consumed - Breakfast: 100 Percent Meal Consumed - Lunch: 100 Percent Meal Consumed - Dinner: 100 Subjective Subjective Patient was seen & assessed and interval progress reviewed with treatment team nursing and social work. Poor sleep last night even with after him asking for prn haldol and ativan at about 4:30am. Had a nightmare last night that he from COVID. Bizarre behaviors in milieu this morning. isolative to room but did attend almost all of the groups today with periods of increased participation. Reports his mood is "fine" and denies any side effects from haldol, denies any muscle stiffness, denies restlessness. Discussed option for additional dose of haldol decanoate which he consents to. Continues to decline any other antipsychotic medications. Physical Exam Psychiatric Orientation: alert and oriented x 3 Apperance: appropriately dressed and appropriately groomed Eye Contact: + fair eye contact Motor Behavior: no abnormal motor movements Speech: no pressured speech and + abnormal rate/rhythm/volume of speech (stutter (apparently baseline)) Affect: + blunted affect Mood: + anxious mood; no depressed mood Thought Process: + tangential thought process and + looseness of associations Thought Content: + paranoid and + delusions Suicidal Thoughts: denies suicidal thoughts Homicidal Thoughts: denies homicidal thoughts Hallucinations: + auditory hallucinations (appears to be responding to stimuli); no visual hallucinations Cognition: language grossly intact; + attention not intact Estimated Intelligence: consistent with education level Insight: + impaired insight Judgement: + impaired judgement Vital Signs (Past 24 Hours) Last Vital Signs Temp 36.6 C 11/19/21 08:23 Pulse 81 11/19/21 08:23 Resp 16 11/19/21 08:23 BP 125/87 11/19/21 08:23 Pulse Ox 97 11/08/21 14:14 Results & Data ([facility]) Current Inpatient Medications Current Inpatient Medications: Current Inpatient Medications Acetaminophen (Acetaminophen 325 Mg Tab) 650 mg PO Q4H PRN PRN Reason: Headache or Minor Fever Stop: 12/08/21 19:00 Last Admin: 11/17/21 08:12 Dose: 650 mg Documented by: Al Hydrox/Mg Hydrox/Simethicone (Aluminum/Magnesium Susp 30 Ml Udc) 30 ml PO Q4H PRN PRN Reason: GI Upset Stop: 12/08/21 19:00 Benztropine Mesylate (Benztropine Mesylate 1 Mg/Ml 2 Ml Amp) 1 mg IM Q8 PRN PRN Reason: Agitation Stop: 12/09/21 09:49 Benztropine Mesylate (Benztropine Mesylate 1 Mg Tab) 1 mg PO BID [facility] Stop: 12/13/21 20:59 Last Admin: 11/19/21 08:21 Dose: 1 mg Documented by: Bismuth Subsalicylate (Bismuth Subsalicylate Liqd 236 Ml) 15 ml PO PRN PRN PRN Reason: Loose Stool Stop: 12/08/21 19:00 [facility]operidol ([facility] 5 Mg Tab) [facility] Stop: 12/18/21 11:59 Last Admin: 11/18/21 12:14 Dose: 5 mg Documented by: Haloperidol (Haloperidol 5 Mg Tab) 10 [facility] Stop: 12/17/21 21:59 Last Admin: 11/18/21 21:14 Dose: 10 mg Documented by: Haloperidol (Haloperidol 5 Mg Tab) 5 mg PO TID PRN PRN Reason: Agitation Stop: 12/11/21 12:36 Last Admin: 11/19/21 04:25 Dose: 5 mg Documented by: Haloperidol Lactate (Haloperidol Lactate 5 Mg/Ml 1 Ml Vial) 10 mg IM Q8 PRN PRN Reason: Anxiety/Agitation Stop: 12/09/21 09:49 Lorazepam (Lorazepam 2 Mg/1 Ml Vial) 2 mg IM Q6 PRN PRN Reason: Anxiety/Agitation Stop: 12/09/21 09:49 Lorazepam (Lorazepam 1 Mg Tab) 1 mg PO Q6 PRN PRN Reason: Anxiety/Agitation Stop: 12/09/21 09:49 Last Admin: 11/19/21 04:24 Dose: 1 mg Documented by: Magnesium Hydroxide (Magnesium Hydroxide Susp 30 Ml Udc) 30 ml PO DAILY PRN PRN Reason: Constipation Stop: 12/08/21 19:00 Last Admin: 11/16/21 05:51 Dose: 30 ml Documented by: Melatonin (Melatonin 3 Mg Tab) 3 mg PO HS LINO Stop: 12/16/21 21:59 Last Admin: 11/18/21 21:15 Dose: 3 mg Documented by: Polyethylene Glycol (Polyethylene (Miralax) 17 Gm Pack) 17 gm PO DAILY PRN PRN Reason: Constipation Stop: 12/16/21 13:25 Senna/Docusate Sodium (Docusate Sodium/Senna 50/8.6mg Tab) 1 tab PO QAM LINO Stop: 12/17/21 08:59 Last Admin: 11/19/21 08:21 Dose: 1 tab Documented by: Sodium Chloride (Sodium Chloride 0.65% Na Soln 45 Ml ([place])) 1 - 2 sprays NA PRN PRN PRN Reason: Nasal Dryness/Congestion Stop: 12/08/21 19:00 Trazodone HCl (Trazodone Hcl 50 Mg Tab) 50 mg PO HS PRN PRN Reason: Insomnia Stop: 12/14/21 21:59 Zolpidem Tartrate (Zolpidem Tartrate 10 Mg Tab) 10 mg PO HS LINO Stop: 12/14/21 21:59 Last Admin: 11/18/21 21:15 Dose: 10 mg Documented by: Mental Health & Subst Abuse Tx Psychiatrist Name of Psychiatrist: Katie Scott Psychiatrist's Date of Appointment with Psychiatrist: 12/13/21 Time of Appointment with Psychiatrist: 2:30 p.m. Psychiatric Appointment Comment: [address] [facility] Therapist Name of Therapist: None Application Tester Name of Application Tester: [facility] [place] Phone Number for Application Tester: [phone] Post Discharge Appointments Primary Care Physician Name Of Family Doctor: DEVYN [facility] Primary [facility] Date of Appointment with PCP: 02/11/22 Time of Appointment with PCP: 10:20 a.m. Provider Appointment Comment: [address] [facility] Contact Information Discharge Discharge Address: [address] [place] [address], [facility] [address], [place] [address] (1) Schizophrenia Schizophrenia type: disorganized schizophrenia Qualified Code(s): F20.1 - Disorganized schizophrenia
[2021-11-19] MEDS: haloperidoL 5 MG TAB PO SCH ×2 (12:15→21:52)
[2021-11-19] MEDS: ZOLPIDEM TARTRATE 10 MG TAB PO SCH (21:52)
[2021-11-19] MEDS: MELATONIN 3 MG TAB PO SCH (21:52)
[2021-11-20 08:16] VITALS: O2SAT 98
--- NOTE | 2021-11-20 08:39 | Psychiatric Progress Note ---
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 He requires inpatient hospitalization for safety and monitoring. 11/20/21: Continues to present as guarded, withdrawn, disorganized behaviors and appears to be actively responding to internal stimuli consistent with acute psychosis though attending more groups and tolerating slightly longer interactions with providers. Recieved additional haldol decanoate dose and tolerated this well. MNPR due to acute psychosis, disorganized behavior, limited ability to tolerate peer interactions. (1) Schizophrenia: 11/20/21: Received haldol decanoate 50mg IM. Continue overlap po haldol. 304 hearing scheduled as will need assisted outpatient treatment. 11/19/21: Continue with haldol po and haldol decanoate 50mg IM tomorrow. Will reduce prns in coming days/weeks due to additional decanoate dose. 11/18/21: Continue with haldol 5mg qlunch & 10mg qhs along with haldol 5 mg prn TID prn. EKG ordered for QTc evaluation. 11/17/21: Increase haldol to 5mg qAM and 10mg qHS. 11/16/21: Continue with haldol BID and haldol decanoate, sleep will likely remain somewhat disrupted overnight due to shifted sleep/wake cycle. Scheduled melatonin to help with this. Senna-colace scheduled. 11/15/21: consolidating Haldol at hs did not help sleep and now more agitated in am though could also be related to Ativan taper. Will shift back to Haldol 5 mg BID. Dose of dec was chosen based on previous dystonia on 150 mg monthly, that was in combo with Clozaril which he is currently not willing to take. If persists, consider addition of an atypical ?Latuda (for reference: past med trials of Abilify, Seroquel, Zyprexa, thorazine, but not Latuda or Invega). 11/14/21: 1 more dose of Haldol 10 mg this hs, received Haldol dec 100 mg. Monitor for EPS and likely start Haldol 5 mg po for a few days tomorrow. Yunior ongoing. d/c standing Ativan. Ambien to hs rather than prn and move room so has blinds and not was disturbed by nurses station. trazodone prn if ineffective. 11/13/21: 303 granted. d/c Clozaril and consolidate Haldol to hs. He is agreeing to CONDE when can determine appropriate dose. Continue MNPR. 11/12/21: Clozaril 100 mg po qhs. Will taper standing Ativan dosing. Some of his complaints today related to the prn Haldol given last 2 days so will continue same standing dose. Will offer CONDE Haldol dec soon. 303 hearing in am. 11/11/21: As on standing Haldol and Ativan, decrease frequency or PO prns. Patient has not been aggressive but will box the air and is still not sleeping well so MNPR remains in place. Increase Clozaril 75 mg po qhs. 11/10/21: add standing Cogentin BID and Ativan 1 mg TID. Fasting labs in am if will cooperate. MNPR for ongoing psychosis with poor boundaries. 11/09/21: The patient was admitted to the [facility] ([facility] mental health unit) on q15 min checks (behavioral with suicide precautions) for safety. The patient will participate in group, recreational, and milieu therapies and will be offered additional individual and family sessions as clinically appropriate. He desires to resume his Clozaril and Haldol and has accepted 2 doses of Haldol 5 mg already without dystonia. Will begin 25 mg clozapine this hs and titrate with Haldol 5 mg BID pending more therapeutic level. He is not fully able to processes full risks/benefits but does voice a preference. Will likely need extended commitment and ultimately conversion to outpatient commitment with CONDE. Inventory Assets Strengths: interested in employment, taking PO meds Needs: outpatient care, CONDE Risk Factors Assessment Male: Yes : No Do You Have Access To A Gun?: No Mental Health Diagnoses: Yes Substance Use Disorders: No Previous Attempt: Yes Previous Psychiatric Hospitalization: Yes Protective Factors Assessment Stable Relationships: No Interval History Identifying Information LEXII TEE is a 31-year-old M who currently lives in alone in [place], has a history of schizophrenia, and was admitted on 11/08/21 19:01 on a 302 involuntary commitment for disorganized behavior. Chief Complaint "I'm fine thanks". Review of Systems Sleep Information Total Hours of Sleep: 7 Sleep Comments: Pt was pacing on the unit and required meds. Meal Information Percent Meal Consumed - Breakfast: 100 Percent Meal Consumed - Lunch: 100 Percent Meal Consumed - Dinner: 100 Subjective Subjective Patient was seen & assessed and interval progress reviewed with treatment team nursing and social work. Attended groups but struggling to participate. Anxious last night with ruminative thoughts about fears of getting COVID and received haldol and ativan. Gets easily distracted, seems to be responding to internal stimuli. Discussed his mood which he feels is improved, denies SI, states he feels better because "I've tried to kill myself three times and it didn't work so it must be a message from the universe that I should live". He also discussed that he no longer feels a connection with God and thus feels he may need to find new social supports since he previously enjoyed doing a bible study. Discussed his job which he enjoys "because it keeps me busy". He denies any pain or side effects from haldol dec injection nor from medications. Physical Exam Psychiatric Orientation: alert, oriented x 3, oriented to person and oriented to place Apperance: appropriately dressed and appropriately groomed Eye Contact: + fair eye contact Motor Behavior: no abnormal motor movements Speech: no pressured speech and + abnormal rate/rhythm/volume of speech (stutter (apparently baseline)) Affect: + flat affect Mood: + anxious mood; no depressed mood Thought Process: + tangential thought process and + looseness of associations Thought Content: + preoccupation (COVID, jain ), + paranoid and reality based without delusions Suicidal Thoughts: denies suicidal thoughts Homicidal Thoughts: denies homicidal thoughts Hallucinations: + auditory hallucinations (appears to be responding to stimuli); no visual hallucinations Cognition: language grossly intact; + attention not intact Estimated Intelligence: consistent with education level Insight: + impaired insight Judgement: + impaired judgement Vital Signs (Past 24 Hours) Last Vital Signs Temp 37.0 C 11/20/21 08:14 Pulse 73 11/20/21 08:14 Resp 18 11/20/21 08:14 BP 123/73 11/20/21 08:14 Pulse Ox 98 11/20/21 08:14 Results & Data ([facility]) Current Inpatient Medications Current Inpatient Medications: Current Inpatient Medications Acetaminophen (Acetaminophen 325 Mg Tab) 650 mg PO Q4H PRN PRN Reason: Headache or Minor Fever Stop: 12/08/21 19:00 Last Admin: 11/17/21 08:12 Dose: 650 mg Documented by: Al Hydrox/Mg Hydrox/Simethicone (Aluminum/Magnesium Susp 30 Ml Udc) 30 ml PO Q4H PRN PRN Reason: GI Upset Stop: 12/08/21 19:00 Benztropine Mesylate (Benztropine Mesylate 1 Mg/Ml 2 Ml Amp) 1 mg IM Q8 PRN PRN Reason: Agitation Stop: 12/09/21 09:49 Benztropine Mesylate (Benztropine Mesylate 1 Mg Tab) 1 mg PO BID [facility] Stop: 12/13/21 20:59 Last Admin: 11/19/21 21:52 Dose: 1 mg Documented by: Bismuth Subsalicylate (Bismuth Subsalicylate Liqd 236 Ml) 15 ml PO PRN PRN PRN Reason: Loose Stool Stop: 12/08/21 19:00 Haloperidol (Haloperidol 5 Mg Tab) 5 mg PO DAILYBL [facility] Stop: 12/18/21 11:59 Last Admin: 11/19/21 12:15 Dose: 5 mg Documented by: Haloperidol (Haloperidol 5 Mg Tab) 10 mg PO HS [facility] Stop: 12/17/21 21:59 Last Admin: 11/19/21 21:52 Dose: 10 mg Documented by: Haloperidol (Haloperidol 5 Mg Tab) 5 mg PO TID PRN PRN Reason: Agitation Stop: 12/11/21 12:36 Last Admin: 11/19/21 18:16 Dose: 5 mg Documented by: Haloperidol Decanoate (Haloperidol Decanoate Inj 50 Mg/Ml Vial) 50 mg IM ONE ONE Stop: 11/20/21 09:01 Haloperidol Lactate (Haloperidol Lactate 5 Mg/Ml 1 Ml Vial) 10 mg IM Q8 PRN PRN Reason: Anxiety/Agitation Stop: 12/09/21 09:49 Lorazepam (Lorazepam 2 Mg/1 Ml Vial) 2 mg IM Q6 PRN PRN Reason: Anxiety/Agitation Stop: 12/09/21 09:49 Lorazepam (Lorazepam 1 Mg Tab) 1 mg PO Q6 PRN PRN Reason: Anxiety/Agitation Stop: 12/09/21 09:49 Last Admin: 11/19/21 18:16 Dose: 1 mg Documented by: Magnesium Hydroxide (Magnesium Hydroxide Susp 30 Ml Udc) 30 ml PO DAILY PRN PRN Reason: Constipation Stop: 12/08/21 19:00 Last Admin: 11/16/21 05:51 Dose: 30 ml Documented by: Melatonin (Melatonin 3 Mg Tab) 3 mg PO HS LINO Stop: 12/16/21 21:59 Last Admin: 11/19/21 21:52 Dose: 3 mg Documented by: Polyethylene Glycol (Polyethylene (Miralax) 17 Gm Pack) 17 gm PO DAILY PRN PRN Reason: Constipation Stop: 12/16/21 13:25 Senna/Docusate Sodium (Docusate Sodium/Senna 50/8.6mg Tab) 1 tab PO QAM LINO Stop: 12/17/21 08:59 Last Admin: 11/19/21 08:21 Dose: 1 tab Documented by: Sodium Chloride (Sodium Chloride 0.65% Na Soln 45 Ml ([place])) 1 - 2 sprays NA PRN PRN PRN Reason: Nasal Dryness/Congestion Stop: 12/08/21 19:00 Trazodone HCl (Trazodone Hcl 50 Mg Tab) 50 mg PO HS PRN PRN Reason: Insomnia Stop: 12/14/21 21:59 Zolpidem Tartrate (Zolpidem Tartrate 10 Mg Tab) 10 mg PO HS LINO Stop: 12/14/21 21:59 Last Admin: 11/19/21 21:52 Dose: 10 mg Documented by: Mental Health & Subst Abuse Tx Psychiatrist Name of Psychiatrist: Katie Scott Psychiatrist's Date of Appointment with Psychiatrist: 12/13/21 Time of Appointment with Psychiatrist: 2:30 p.m. Psychiatric Appointment Comment: [address] [facility] Therapist Name of Therapist: None Drafter Civil (Cad) Name of Drafter Civil (Cad): [facility] [place] [facility] Phone Number for Drafter Civil (Cad): [phone] Post Discharge Appointments Primary Care Physician Name Of Family Doctor: DEVYN - Dr. Blair Primary [facility] Date of Appointment with PCP: 02/11/22 Time of Appointment with PCP: 10:20 a.m. Provider Appointment Comment: [address] [facility] Contact Information Discharge Discharge Address: [facility] [address], [facility] [address], [place] [address] (1) Schizophrenia Schizophrenia type: disorganized schizophrenia Qualified Code(s): F20.1 - Disorganized schizophrenia
[2021-11-20] MEDS: BENZTROPINE MESYLATE 1 MG TAB PO SCH ×2 (08:47→21:56)
[2021-11-20] MEDS: DOCUSATE SODIUM/SENNA 50/8.6MG TAB PO SCH (08:48)
[2021-11-20] MEDS ORDERED: HALOPERIDOL DECANOATE INJ 50 MG/ML VIAL IM ONE (09:00)
[2021-11-20] MEDS: haloperidoL 5 MG TAB PO SCH ×2 (12:43→21:56)
[2021-11-20] MEDS: LORazepam 1 MG TAB PO PRN (19:01)
[2021-11-20] MEDS: MELATONIN 3 MG TAB PO SCH (21:56)
[2021-11-20] MEDS: ZOLPIDEM TARTRATE 10 MG TAB PO SCH (21:56)
[2021-11-21] MEDS: LORazepam 1 MG TAB PO PRN (01:24)
[2021-11-21] MEDS: DOCUSATE SODIUM/SENNA 50/8.6MG TAB PO SCH (08:33)
[2021-11-21] MEDS: BENZTROPINE MESYLATE 1 MG TAB PO SCH ×2 (08:33→22:16)
--- NOTE | 2021-11-21 08:41 | Psychiatric Progress Note ---
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 He requires inpatient hospitalization for safety and monitoring. 11/21/21: Continues to present as guarded and appears to be actively responding to internal stimuli consistent with acute psychosis though attending more groups and tolerating slightly longer interactions with providers. 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 Tolerating increased haldol. Continues to decline addition of any further antipsychotic medications. 304 hearing scheduled for tomorrow. MNPR due to acute psychosis, disorganized behavior, limited ability to tolerate peer interactions. (1) Schizophrenia: 11/21/21: Continue medications. 304 hearing tomorrow. 11/20/21: Received haldol decanoate 50mg IM. Continue overlap po haldol. 304 hearing scheduled as will need assisted outpatient treatment. 11/19/21: Continue with haldol po and haldol decanoate 50mg IM tomorrow. Will reduce prns in coming days/weeks due to additional decanoate dose. 11/18/21: Continue with haldol 5mg qlunch & 10mg qhs along with haldol 5 mg prn TID prn. EKG ordered for QTc evaluation. 11/17/21: Increase haldol to 5mg qAM and 10mg qHS. 11/16/21: Continue with haldol BID and haldol decanoate, sleep will likely remain somewhat disrupted overnight due to shifted sleep/wake cycle. Scheduled melatonin to help with this. Senna-colace scheduled. 11/15/21: consolidating Haldol at hs did not help sleep and now more agitated in am though could also be related to Ativan taper. Will shift back to Haldol 5 mg BID. Dose of dec was chosen based on previous dystonia on 150 mg monthly, that was in combo with Clozaril which he is currently not willing to take. If persists, consider addition of an atypical ?Latuda (for reference: past med trials of Abilify, Seroquel, Zyprexa, thorazine, but not Latuda or Invega). 11/14/21: 1 more dose of Haldol 10 mg this hs, received Haldol dec 100 mg. Monitor for EPS and likely start Haldol 5 mg po for a few days tomorrow. Cogentin ongo ing. d/c standing Ativan. Ambien to hs rather than prn and move room so has blinds and not was disturbed by nurses station. trazodone prn if ineffective. 11/13/21: 303 granted. d/c Clozaril and consolidate Haldol to hs. He is agreeing to CONDE when can determine appropriate dose. Continue MNPR. 11/12/21: Clozaril 100 mg po qhs. Will taper standing Ativan dosing. Some of his complaints today related to the prn Haldol given last 2 days so will continue same standing dose. Will offer CONDE Haldol dec soon. 303 hearing in am. 11/11/21: As on standing Haldol and Ativan, decrease frequency or PO prns. P atient has not been aggressive but will box the air and is still not sleeping well so MNPR remains in place. Increase Clozaril 75 mg po qhs. 11/10/21: add standing Cogentin BID and Ativan 1 mg TID. Fasting labs in am if will cooperate. MNPR for ongoing psychosis with poor boundaries. 11/09/21: The patient was admitted to the [facility] ([facility] inpatient mental health unit) on q15 min checks (behavioral with suicide precautions) for safety. The patient will participate in group, recreational, and milieu therapies and will be offered additional individual and family sessions as clinically appropriate. He desires to resume his Clozaril and Haldol and has accepted 2 doses of Haldol 5 mg already without dystonia. Will begin 25 mg clozapine this hs and titrate with Haldol 5 mg BID pending more therapeutic level. He is not fully able to processes full risks/benefits but does voice a preference. Will likely need extended commitment and ultimately conversion to outpatient commitment with CONDE. Inventory Assets Strengths: interested in employment, taking PO meds Needs: outpatient care, CONDE Risk Factors Assessment Male: Yes : No Do You Have Access To A Gun?: No Mental Health Diagnoses: Yes Substance Use Disorders: No Previous Attempt: Yes Previous Psychiatric Hospitalization: Yes Protective Factors Assessment Stable Relationships: No Interval History Identifying Information LEXII TEE is a 31-year-old M who currently lives in alone in [place], has a history of schizophrenia, and was admitted on 11/08/21 19:01 on a 302 involuntary commitment for disorganized behavior. Chief Complaint "I'm fine thanks". Review of Systems Sleep Information Total Hours of Sleep: 1 Sleep Comments: Pt was pacing on the unit and required meds. Meal Information Percent Meal Consumed - Breakfast: 100 Percent Meal Consumed - Lunch: 100 Percent Meal Consumed - Dinner: 100 Subjective Subjective Patient was seen & assessed and interval progress reviewed with treatment team nursing and social work. Napped yesterday evening. Then was awake at midnight and got trazodone and ativan last night but only slept for 1 hour. Up this morning pacing in the hallway. Reports his mood is "fine thanks" and denies any medication side effects. Physical Exam Psychiatric Orientation: alert, oriented x 3, oriented to person and oriented to place Apperance: appropriately dressed and appropriately groomed Eye Contact: + poor eye contact Motor Behavior: no abnormal motor movements Speech: no pressured speech and + abnormal rate/rhythm/volume of speech (stutter (apparently baseline)) Affect: + blunted affect Mood: + anxious mood; no depressed mood Thought Process: + tangential thought process and + looseness of associations Thought Content: + preoccupation (COVID, pentecostal ), + paranoid, reality based without delusions and + delusions Suicidal Thoughts: denies suicidal thoughts Homicidal Thoughts: denies homicidal thoughts Hallucinations: + auditory hallucinations (appears to be responding to stimuli); no visual hallucinations Cognition: language grossly intact; + attention not intact Estimated Intelligence: consistent with education level Insight: + impaired insight Judgement: + impaired judgement Vital Signs (Past 24 Hours) Last Vital Signs Temp 36.4 C L 11/21/21 06:12 Pulse 80 11/21/21 06:12 Resp 16 11/21/21 06:12 BP 106/69 11/21/21 06:12 Pulse Ox 98 11/20/21 08:14 Results & Data ([facility]) Current Inpatient Medications Current Inpatient Medications: Current Inpatient Medications Acetaminophen (Acetaminophen 325 Mg Tab) 650 mg PO Q4H PRN PRN Reason: Headache or Minor Fever Stop: 12/08/21 19:00 Last Admin: 11/17/21 08:12 Dose: 650 mg Documented by: Al Hydrox/Mg Hydrox/Simethicone (Aluminum/Magnesium Susp 30 Ml Udc) 30 ml PO Q4H PRN PRN Reason: GI Upset Stop: 12/08/21 19:00 Benztropine Mesylate (Benztropine Mesylate 1 Mg/Ml 2 Ml Amp) 1 mg IM Q8 PRN PRN Reason: Agitation Stop: 12/09/21 09:49 Benztropine Mesylate (Benztropine Mesylate 1 Mg Tab) 1 mg PO BID [facility] Stop: 12/13/21 20:59 Last Admin: 11/21/21 08:33 Dose: 1 mg Documented by: Bismuth Subsalicylate (Bismuth Subsalicylate Liqd 236 Ml) 15 ml PO PRN PRN PRN Reason: Loose Stool Stop: 12/08/21 19:00 Haloperidol (Hal[facility] 5 Mg Tab) [facility] Stop: 12/18/21 11:59 Last Admin: 11/20/21 12:43 Dose: 5 mg Documented by: Haloperidol (Haloperidol 5 Mg Tab) 10 mg PO [facility] Stop: 12/17/21 21:59 Last Admin: 11/20/21 21:56 Dose: 10 mg Documented by: Haloperidol (Haloperidol 5 Mg Tab) 5 mg PO TID PRN PRN Reason: Agitation Stop: 12/11/21 12:36 Last Admin: 11/19/21 18:16 Dose: 5 mg Documented by: Haloperidol Lactate (Haloperidol Lactate 5 Mg/Ml 1 Ml Vial) 10 mg IM Q8 PRN PRN Reason: Anxiety/Agitation Stop: 12/09/21 09:49 Lorazepam (Lorazepam 2 Mg/1 Ml Vial) 2 mg IM Q6 PRN PRN Reason: Anxiety/Agitation Stop: 12/09/21 09:49 Lorazepam (Lorazepam 1 Mg Tab) 1 mg PO Q6 PRN PRN Reason: Anxiety/Agitation Stop: 12/09/21 09:49 Last Admin: 11/21/21 01:24 Dose: 1 mg Documented by: Magnesium Hydroxide (Magnesium Hydroxide Susp 30 Ml Udc) 30 ml PO DAILY PRN PRN Reason: Constipation Stop: 12/08/21 19:00 Last Admin: 11/16/21 05:51 Dose: 30 ml Documented by: Melatonin (Melatonin 3 Mg Tab) 3 mg PO [facility] Stop: 12/16/21 21:59 Last Admin: 11/20/21 21:56 Dose: 3 mg Documented by: Polyethylene Glycol (Polyethylene (Miralax) 17 Gm Pack) 17 gm PO DAILY PRN PRN Reason: Constipation Stop: 12/16/21 13:25 Senna/Docusate Sodium (Docusate Sodium/Senna 50/8.6mg Tab) 1 tab PO QAM LINO Stop: 12/17/21 08:59 Last Admin: 11/21/21 08:33 Dose: 1 tab Documented by: Sodium Chloride (Sodium Chloride 0.65% Na Soln 45 Ml ([place])) 1 - 2 sprays NA PRN PRN PRN Reason: Nasal Dryness/Congestion Stop: 12/08/21 19:00 Trazodone HCl (Trazodone Hcl 50 Mg Tab) 50 mg PO HS PRN PRN Reason: Insomnia Stop: 12/14/21 21:59 Last Admin: 11/21/21 00:54 Dose: 50 mg Documented by: Zolpidem Tartrate (Zolpidem Tartrate 10 Mg Tab) 10 mg PO HS [facility]O Stop: 12/14/21 21:59 Last Admin: 11/20/21 21:56 Dose: 10 mg Documented by: Mental Health & Subst Abuse Tx Psychiatrist Name of Psychiatrist: Katie Scott Psychiatrist's Date of Appointment with Psychiatrist: 12/13/21 Time of Appointment with Psychiatrist: 2:30 p.m. Psychiatric Appointment Comment: [address] [facility] Therapist Name of Therapist: None Systems Manager Name of Systems Manager: [facility] Todd Gee Phone Number for Systems Manager: [phone] Post Discharge Appointments Primary Care Physician Name Of Family Doctor: DEVYN [facility] Primary [facility] Date of Appointment with PCP: 02/11/22 Time of Appointment with PCP: 10:20 a.m. Provider Appointment Comment: [address] [facility] Contact Information Discharge Discharge Address: [address] [place] [address] Shabana, [facility] [address], [place] [address] (1) Schizophrenia Schizophrenia type: disorganized schizophrenia Qualified Code(s): F20.1 - Disorganized schizophrenia
[2021-11-21] MEDS: haloperidoL 5 MG TAB PO SCH ×2 (12:14→22:16)
[2021-11-21] MEDS: MELATONIN 3 MG TAB PO SCH (22:16)
[2021-11-21] MEDS: ZOLPIDEM TARTRATE 10 MG TAB PO SCH (22:18)
[2021-11-22] MEDS: BENZTROPINE MESYLATE 1 MG TAB PO SCH ×2 (08:20→21:03)
[2021-11-22] MEDS: DOCUSATE SODIUM/SENNA 50/8.6MG TAB PO SCH (08:20)
--- NOTE | 2021-11-22 08:47 | Psychiatric Progress Note ---
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 He requires inpatient hospitalization for safety and monitoring. 11/22/21: Continues to present as guarded and appears to be actively responding to internal stimuli consistent with acute psychosis though attending more groups and tolerating longer interactions with providers and able to recall specific details of planning he did with his case consultant showing improvement in thought process. 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 Tolerating medications. Continues to decline addition of any further antipsychotic medications. MNPR due to acute psychosis, disorganized behavior, limited ability to tolerate peer interactions. (1) Schizophrenia: 11/22/21: Continue medications. 304 commitment upheld. Established with case consultant. Support meeting scheduled. 11/21/21: Continue medications. 304 hearing tomorrow. 11/20/21: Received haldol decanoate 50mg IM. Continue overlap po haldol. 304 hearing scheduled as will need assisted outpatient treatment. 11/19/21: Continue with haldol po and haldol decanoate 50mg IM tomorrow. Will reduce prns in coming days/weeks due to additional decanoate dose. 11/18/21: Continue with haldol 5mg qlunch & 10mg qhs along with haldol 5 mg prn TID prn. EKG ordered for QTc evaluation. 11/17/21: Increase haldol to 5mg qAM and 10mg qHS. 11/16/21: Continue with haldol BID and haldol decanoate, sleep will likely remain somewhat disrupted overnight due to shifted sleep/wake cycle. Scheduled melatonin to help with this. Senna-colace scheduled. 11/15/21: consolidating Haldol at hs did not help sleep and now more agitated in am though could also be related to Ativan taper. Will shift back to Haldol 5 mg BID. Dose of dec was chosen based on previous dystonia on 150 mg monthly, that was in combo with Clozaril which he is currently not willing to take. If persists, consider addition of an atypical ?Latuda (for reference: past med trials of Abilify, Seroquel, Zyprexa, thorazine, but not Latuda or Invega). 11/14/21: 1 more dose of Haldol 10 mg this hs, received Haldol dec 100 mg. Monitor for EPS and likely start Haldol 5 mg po for a few days tomorrow. Cogentin ongoing. d/c standing Ativan. Ambien to hs rather than prn and move room so has blinds and not was disturbed by nurses station. trazodone prn if ineffective. 11/13/21: 303 granted. d/c Clozaril and consolidate Haldol to hs. He is agreeing to CONDE when can determine appropriate dose. Continue MNPR. 11/12/21: Clozaril 100 mg po qhs. Will taper standing Ativan dosing. Some of his complaints today related to the prn Haldol given last 2 days so will continue same standing dose. Will offer CONDE Haldol dec soon. 303 hearing in am. 11/11/21: As on standing Haldol and Ativan, decrease frequency or PO prns. Patient has not been aggressive but will box the air and is still not sleeping well so MNPR remains in place. Increase Clozaril 75 mg po qhs. 11/10/21: add standing Cogentin BID and Ativan 1 mg TID. Fasting labs in am if will cooperate. MNPR for ongoing psychosis with poor boundaries. 11/09/21: The patient was admitted to the [facility] ([facility]) on q15 min checks (behavioral with suicide precautions) for safety. The patient will participate in group, recreational, and milieu therapies and will be offered additional individual and family sessions as clinically appropriate. He desires to resume his Clozaril and Haldol and has accepted 2 doses of Haldol 5 mg already without dystonia. Will begin 25 mg clozapine this hs and titrate with Haldol 5 mg BID pending more therapeutic level. He is not fully able to processes full risks/benefits but does voice a preference. Will likely need extended commitment and ultimately conversion to outpatient commitment with CONDE. Inventory Assets Strengths: interested in employment, taking PO meds Needs: outpatient care, CONDE Risk Factors Assessment Male: Yes : No Do You Have Access To A Gun?: No Mental Health Diagnoses: Yes Substance Use Disorders: No Previous Attempt: Yes Previous Psychiatric Hospitalization: Yes Protective Factors Assessment Stable Relationships: No Interval History Identifying Information LEXII TEE is a 31-year-old M who currently lives in alone in [place], has a history of schizophrenia, and was admitted on 11/08/21 19:01 on a 302 involuntary commitment for disorganized behavior. Chief Complaint "I'm fine thanks". Review of Systems Sleep Information Total Hours of Sleep: 7.75 Sleep Comments: Pt was pacing on the unit and required meds. Meal Information Percent Meal Consumed - Breakfast: 100 Percent Meal Consumed - Lunch: 100 Percent Meal Consumed - Dinner: 100 Subjective Subjective Patient was seen & assessed and interval progress reviewed with treatment team nursing and social work. Had his best sleep last night. Continues to be adherent with medications. Meeting new case consultant today. Still very focused on jew themes and feeling that God no longer exists for him and that this also means he no longer has schizophrenia. He declined to participate in his 304 hearing. Discussed the commitment was upheld. He denied any medication side effects. Stated that he likes his new case consultant and that if he remains in the hospital past the then he needs to make sure he reschedules his meeting to see his case consultant as they set up a check in on that day. Denies SI. Physical Exam Psychiatric Orientation: alert, oriented x 3, oriented to person and oriented to place Apperance: appropriately dressed and appropriately groomed Eye Contact: + fair eye contact Motor Behavior: no abnormal motor movements Speech: no pressured speech and + abnormal rate/rhythm/volume of speech (stutter (apparently baseline)) Affect: + flat affect Mood: + anxious mood; no depressed mood Thought Process: goal directed thought process Thought Content: + preoccupation (COVID, mandaeism ), reality based without delusions and + delusions (mostly focused on mandaeism ) Suicidal Thoughts: denies suicidal thoughts Homicidal Thoughts: denies homicidal thoughts Hallucinations: + auditory hallucinations (appears to be responding to stimuli); no visual hallucinations Cognition: recent memory grossly intact, remote memory grossly intact, attention grossly intact and language grossly intact Estimated Intelligence: consistent with education level Insight: + impaired insight Judgement: + impaired judgement Vital Signs (Past 24 Hours) Last Vital Signs Temp 36.4 C L 11/22/21 06:32 Pulse 75 11/22/21 06:33 Resp 18 11/22/21 06:32 BP 115/81 11/22/21 06:33 Pulse Ox 98 11/20/21 08:14 Results & Data ([facility]) Current Inpatient Medications Current Inpatient Medications: Current Inpatient Medications Acetaminophen (Acetaminophen 325 Mg Tab) 650 mg PO Q4H PRN PRN Reason: Headache or Minor Fever Stop: 12/08/21 19:00 Last Admin: 11/17/21 08:12 Dose: 650 mg Documented by: Al Hydrox/Mg Hydrox/Simethicone (Aluminum/Magnesium Susp 30 Ml Udc) 30 ml PO Q4H PRN PRN Reason: GI Upset Stop: 12/08/21 19:00 Benztropine Mesylate (Benztropine Mesylate 1 Mg/Ml 2 Ml Amp) 1 mg IM Q8 PRN PRN Reason: Agitation Stop: 12/09/21 09:49 Benztropine Mesylate (Benztropine Mesylate 1 Mg Tab) 1 mg PO BID [facility] Stop: 12/13/21 20:59 Last Admin: 11/22/21 08:20 Dose: 1 mg Documented by: Bismuth Subsalicylate (Bismuth Subsalicylate Liqd 236 Ml) 15 ml PO PRN PRN PRN Reason: Loose Stool Stop: 12/08/21 19:00 Haloperidol (Haloperidol 5 Mg Tab) 5 mg PO DAILYBL [facility] Stop: 12/18/21 11:59 Last Admin: 11/21/21 12:14 Dose: 5 mg Documented by: Haloperidol (Haloperidol 5 Mg Tab) 10 mg PO HS [facility] Stop: 12/17/21 21:59 Last Admin: 11/21/21 22:16 Dose: 10 mg Documented by: Haloperidol (Haloperidol 5 Mg Tab) 5 mg PO TID PRN PRN Reason: Agitation Stop: 12/11/21 12:36 Last Admin: 11/19/21 18:16 Dose: 5 mg Documented by: Haloperidol Lactate (Haloperidol Lactate 5 Mg/Ml 1 Ml Vial) 10 mg IM Q8 PRN PRN Reason: Anxiety/Agitation Stop: 12/09/21 09:49 Lorazepam (Lorazepam 2 Mg/1 Ml Vial) 2 mg IM Q6 PRN PRN Reason: Anxiety/Agitation Stop: 12/09/21 09:49 Lorazepam (Lorazepam 1 Mg Tab) 1 mg PO Q6 PRN PRN Reason: Anxiety/Agitation Stop: 12/09/21 09:49 Last Admin: 11/21/21 01:24 Dose: 1 mg Documented by: Magnesium Hydroxide (Magnesium Hydroxide Susp 30 Ml Udc) 30 ml PO DAILY PRN PRN Reason: Constipation Stop: 12/08/21 19:00 Last Admin: 11/16/21 05:51 Dose: 30 ml Documented by: Melatonin (Melatonin 3 Mg Tab) 3 mg PO HS LINO Stop: 12/16/21 21:59 Last Admin: 11/21/21 22:16 Dose: 3 mg Documented by: Polyethylene Glycol (Polyethylene (Miralax) 17 Gm Pack) 17 gm PO DAILY PRN PRN Reason: Constipation Stop: 12/16/21 13:25 Senna/Docusate Sodium (Docusate Sodium/Senna 50/8.6mg Tab) 1 tab PO QAM LINO Stop: 12/17/21 08:59 Last Admin: 11/22/21 08:20 Dose: 1 tab Documented by: Sodium Chloride (Sodium Chloride 0.65% Na Soln 45 Ml ([place])) 1 - 2 sprays NA PRN PRN PRN Reason: Nasal Dryness/Congestion Stop: 12/08/21 19:00 Trazodone HCl (Trazodone Hcl 50 Mg Tab) 50 mg PO HS PRN PRN Reason: Insomnia Stop: 12/14/21 21:59 Last Admin: 11/21/21 00:54 Dose: 50 mg Documented by: Zolpidem Tartrate (Zolpidem Tartrate 10 Mg Tab) 10 mg PO HS LINO Stop: 12/14/21 21:59 Last Admin: 11/21/21 22:18 Dose: 10 mg Documented by: Mental Health & Subst Abuse Tx Psychiatrist Name of Psychiatrist: Katie Scott Psychiatrist's Date of Appointment with Psychiatrist: 12/13/21 Time of Appointment with Psychiatrist: 2:30 p.m. Psychiatric Appointment Comment: [address] [facility] Therapist Name of Therapist: None Tenterer Name of Tenterer: [facility] Phone Number for Tenterer: [phone] Post Discharge Appointments Primary Care Physician Name Of Family Doctor: DEVYN - Dr. Blair Primary [facility] Date of Appointment with PCP: 02/11/22 Time of Appointment with PCP: 10:20 a.m. Provider Appointment Comment: [id number] [facility] Contact Information Discharge Discharge Address: [address] [place], [place] [address] [address], [place] [address] (1) Schizophrenia Schizophrenia type: disorganized schizophrenia Qualified Code(s): F20.1 - Disorganized schizophrenia
[2021-11-22] MEDS: haloperidoL 5 MG TAB PO SCH ×2 (12:38→21:03)
[2021-11-22] MEDS: MELATONIN 3 MG TAB PO SCH (21:04)
[2021-11-22] MEDS: ZOLPIDEM TARTRATE 10 MG TAB PO SCH (21:04)
[2021-11-23] MEDS: DOCUSATE SODIUM/SENNA 50/8.6MG TAB PO SCH (08:55)
[2021-11-23] MEDS: BENZTROPINE MESYLATE 1 MG TAB PO SCH ×2 (08:55→21:26)
[2021-11-23] MEDS: ACETAMINOPHEN 325 MG TAB PO PRN ×2 (10:15→18:10)
[2021-11-23] MEDS: haloperidoL 5 MG TAB PO SCH ×2 (12:54→21:26)
--- NOTE | 2021-11-23 13:56 | Psychiatric Progress Note ---
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 He requires inpatient hospitalization for safety and monitoring. 11/23/21: improving in that more engaged in discharge planning/community services MNPR due to acute psychosis, disorganized behavior, limited ability to tolerate peer interactions. (1) Schizophrenia: 11/23/21: interim care by Dr. Acuna reviewed. Continue current meds and treatment plan. Will decrease oral haldol dose upon discharge. 11/22/21: Continue medications. 304 commitment upheld. Established with case planner. Support meeting scheduled. 11/21/21: Continue medications. 304 hearing tomorrow. 11/20/21: Received haldol decanoate 50mg IM. Continue overlap po haldol. 304 hearing scheduled as will need assisted outpatient treatment. 11/19/21: Continue with haldol po and haldol decanoate 50mg IM tomorrow. Will reduce prns in coming days/weeks due to additional decanoate dose. 11/18/21: Continue with haldol 5mg qlunch & 10mg qhs along with haldol 5 mg prn TID prn. EKG ordered for QTc evaluation. 11/17/21: Increase haldol to 5mg qAM and 10mg qHS. 11/16/21: Continue with haldol BID and haldol decanoate, sleep will likely remain somewhat disrupted overnight due to shifted sleep/wake cycle. Scheduled melatonin to help with this. Senna-colace scheduled. 11/15/21: consolidating Haldol at hs did not help sleep and now more agitated in am though could also be related to Ativan taper. Will shift back to Haldol 5 mg BID. Dose of dec was chosen based on previous dystonia on 150 mg monthly, that was in combo with Clozaril which he is currently not willing to take. If persists, consider addition of an atypical ?Latuda (for reference: past med trials of Abilify, Seroquel, Zyprexa, thorazine, but not Latuda or Invega). 11/14/21: 1 more dose of Haldol 10 mg this hs, received Haldol dec 100 mg. Monitor for EPS and likely start Haldol 5 mg po for a few days tomorrow. Cogentin ongoing. d/c standing Ativan. Ambien to hs rather than prn and move room so has blinds and not was disturbed by nurses station. trazodone prn if ineffective. 11/13/21: 303 granted. d/c Clozaril and consolidate Haldol to hs. He is agreeing to CONDE when can determine appropriate dose. Continue MNPR. 11/12/21: Clozaril 100 mg po qhs. Will taper standing Ativan dosing. Some of his complaints today related to the prn Haldol given last 2 days so will continue same standing dose. Will offer CONDE Haldol dec soon. 303 hearing in am. 11/11/21: As on standing Haldol and Ativan, decrease frequency or PO prns. Patient has not been aggressive but will box the air and is still not sleeping well so MNPR remains in place. Increase Clozaril 75 mg po qhs. 11/10/21: add standing Cogentin BID and Ativan 1 mg TID. Fasting labs in am if will cooperate. MNPR for ongoing psychosis with poor boundaries. 11/09/21: The patient was admitted to the [facility] ([facility] inpatient mental health unit) on q15 min checks (behavioral with suicide precautions) for safety. The patient will participate in group, recreational, and milieu therapies and will be offered additional individual and family sessions as clinically appropriate. He desires to resume his Clozaril and Haldol and has accepted 2 doses of Haldol 5 mg already without dystonia. Will begin 25 mg clozapine this hs and titrate with Haldol 5 mg BID pending more therapeutic level. He is not fully able to processes full risks/benefits but does voice a preference. Will likely need extended commitment and ultimately conversion to outpatient commitment with CONDE. Inventory Assets Strengths: interested in employment, taking PO meds Needs: outpatient care, CONDE Risk Factors Assessment Male: Yes : No Do You Have Access To A Gun?: No Mental Health Diagnoses: Yes Substance Use Disorders: No Previous Attempt: Yes Previous Psychiatric Hospitalization: Yes Protective Factors Assessment Stable Relationships: No Interval History Identifying Information LEXII TEE is a 31-year-old M who currently lives in alone in [place], has a history of schizophrenia, and was admitted on 11/08/21 19:01 on a 302 involuntary commitment for disorganized behavior. Chief Complaint "I'm really focussed on my case management appointment". Review of Systems Sleep Information Total Hours of Sleep: 4.25 Meal Information Percent Meal Consumed - Breakfast: 100 Percent Meal Consumed - Lunch: 100 Percent Meal Consumed - Dinner: 100 Subjective Subjective Patient was seen & assessed and interval progress reviewed with nursing and social work. Patient was cooperative with meeting with CM and appears to be a good fit. He remembered his appointment date/time still today. He declined group due to knee pain. States it is his baseline pain, can't wear brace here. No swelling or redness noted. He states he has been seen by ortho [facility] and [facility] and needs surgery but was told he may need to be off work for a year and he is motivated to work. Physical Exam Psychiatric Orientation: alert, oriented x 3, oriented to person and oriented to place Apperance: appropriately dressed and appropriately groomed Eye Contact: + fair eye contact Motor Behavior: no abnormal motor movements Speech: no pressured speech Affect: + constricted affect Mood: + anxious mood; no depressed mood Thought Process: + concrete thought process Thought Content: + preoccupation (COVID, mandaen ); not paranoid Suicidal Thoughts: denies suicidal thoughts Homicidal Thoughts: denies homicidal thoughts Hallucinations: + auditory hallucinations (appears to be responding to stimuli after lengthy conversation); no visual hallucinations Cognition: recent memory grossly intact, remote memory grossly intact, attention grossly intact and language grossly intact Estimated Intelligence: consistent with education level Insight: + impaired insight Judgement: + impaired judgement Vital Signs (Past 24 Hours) Last Vital Signs Temp 36.9 C 11/23/21 06:44 Pulse 68 11/23/21 06:45 Resp 18 11/23/21 06:44 BP 121/78 11/23/21 06:45 Pulse Ox 98 11/20/21 08:14 Results & Data ([facility]) Current Inpatient Medications Current Inpatient Medications: Current Inpatient Medications Acetaminophen (Acetaminophen 325 Mg Tab) 650 mg PO Q4H PRN PRN Reason: Headache or Minor Fever Stop: 12/08/21 19:00 Last Admin: 11/23/21 10:15 Dose: 650 mg Documented by: Al Hydrox/Mg Hydrox/Simethicone (Aluminum/Magnesium Susp 30 Ml Udc) 30 ml PO Q4H PRN PRN Reason: GI Upset Stop: 12/08/21 19:00 Benztropine Mesylate (Benztropine Mesylate 1 Mg/Ml 2 Ml Amp) 1 mg IM Q8 PRN PRN Reason: Agitation Stop: 12/09/21 09:49 Benztropine Mesylate (Benztropine Mesylate 1 Mg Tab) 1 mg PO BID [facility] Stop: 12/13/21 20:59 Last Admin: 11/23/21 08:55 Dose: 1 mg Documented by: Bismuth Subsalicylate (Bismuth Subsalicylate Liqd 236 Ml) 15 ml PO PRN PRN PRN Reason: Loose Stool Stop: 12/08/21 19:00 Haloperidol ([facility] 5 Mg Tab) [facility] Stop: 12/18/21 11:59 Last Admin: 11/23/21 12:54 Dose: 5 mg Documented by: Haloperidol (Haloperidol 5 Mg Tab) 10 mg PO [facility] Stop: 12/17/21 21:59 Last Admin: 11/22/21 21:03 Dose: 10 mg Documented by: Haloperidol (Haloperidol 5 Mg Tab) 5 mg PO TID PRN PRN Reason: Agitation Stop: 12/11/21 12:36 Last Admin: 11/19/21 18:16 Dose: 5 mg Documented by: Haloperidol Lactate (Haloperidol Lactate 5 Mg/Ml 1 Ml Vial) 10 mg IM Q8 PRN PRN Reason: Anxiety/Agitation Stop: 12/09/21 09:49 Lorazepam (Lorazepam 2 Mg/1 Ml Vial) 2 mg IM Q6 PRN PRN Reason: Anxiety/Agitation Stop: 12/09/21 09:49 Lorazepam (Lorazepam 1 Mg Tab) 1 mg PO Q6 PRN PRN Reason: Anxiety/Agitation Stop: 12/09/21 09:49 Last Admin: 11/21/21 01:24 Dose: 1 mg Documented by: Magnesium Hydroxide (Magnesium Hydroxide Susp 30 Ml Udc) 30 ml PO DAILY PRN PRN Reason: Constipation Stop: 12/08/21 19:00 Last Admin: 11/16/21 05:51 Dose: 30 ml Documented by: Melatonin (Melatonin 3 Mg Tab) 3 mg PO [facility] Stop: 12/16/21 21:59 Last Admin: 11/22/21 21:04 Dose: 3 mg Documented by: Polyethylene Glycol (Polyethylene (Miralax) 17 Gm Pack) 17 gm PO DAILY PRN PRN Reason: Constipation Stop: 12/16/21 13:25 Senna/Docusate Sodium (Docusate Sodium/Senna 50/8.6mg Tab) 1 tab PO QAM [facility] Stop: 12/17/21 08:59 Last Admin: 11/23/21 08:55 Dose: 1 tab Documented by: Sodium Chloride (Sodium Chloride 0.65% Na Soln 45 Ml ([place])) 1 - 2 sprays NA PRN PRN PRN Reason: Nasal Dryness/Congestion Stop: 12/08/21 19:00 Trazodone HCl (Trazodone Hcl 50 Mg Tab) 50 mg PO HS PRN PRN Reason: Insomnia Stop: 12/14/21 21:59 Last Admin: 11/21/21 00:54 Dose: 50 mg Documented by: Zolpidem Tartrate (Zolpidem Tartrate 10 Mg Tab) 10 mg PO HS [facility] Stop: 12/14/21 21:59 Last Admin: 11/22/21 21:04 Dose: 10 mg Documented by: Mental Health & Subst Abuse Tx Psychiatrist Name of Psychiatrist: Katie Scott Psychiatrist's Date of Appointment with Psychiatrist: 12/13/21 Time of Appointment with Psychiatrist: 2:30 p.m. Psychiatric Appointment Comment: [address] [facility] Therapist Name of Therapist: None Exchange Specialist Name of Exchange Specialist: [facility] - Todd Gee Phone Number for Exchange Specialist: [phone] Date of Appointment with Exchange Specialist: 11/28/21 Time of Appointment with Exchange Specialist: 3:30 p.m. Case Management Appointment Comment: Will meet you at your apartment Post Discharge Appointments Primary Care Physician Name Of Family Doctor: DEVYN [facility] Date of Appointment with PCP: 02/11/22 Time of Appointment with PCP: 10:20 a.m. Provider Appointment Comment: [address] [facility] Contact Information Discharge Discharge Address: [address] [place] [address], [facility], [place] [address] (1) Schizophrenia Schizophrenia type: disorganized schizophrenia Qualified Code(s): F20.1 - Disorganized schizophrenia
[2021-11-23] MEDS: MELATONIN 3 MG TAB PO SCH (21:26)
[2021-11-23] MEDS: ZOLPIDEM TARTRATE 10 MG TAB PO SCH (21:26)
[2021-11-24] MEDS: DOCUSATE SODIUM/SENNA 50/8.6MG TAB PO SCH (08:00)
[2021-11-24] MEDS: BENZTROPINE MESYLATE 1 MG TAB PO SCH ×2 (08:02→21:20)
[2021-11-24] MEDS: ACETAMINOPHEN 325 MG TAB PO PRN (09:35)
[2021-11-24] MEDS: haloperidoL 5 MG TAB PO SCH ×2 (12:27→21:20)
--- NOTE | 2021-11-24 13:29 | Psychiatric Progress Note ---
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 He requires inpatient hospitalization for safety and monitoring. 11/24/21: improving, PLAN: continue current meds and tx plan. MNPR due to acute psychosis, disorganized behavior on admission, limited ability to tolerate peer interactions. (1) Schizophrenia: 11/23/21: interim care by Dr. Acuna reviewed. Continue current meds and treatment plan. Will decrease oral haldol dose upon discharge. 11/22/21: Continue medications. 304 commitment upheld. Established with upper caser. Support meeting scheduled. 11/21/21: Continue medications. 304 hearing tomorrow. 11/20/21: Received haldol decanoate 50mg IM. Continue overlap po haldol. 304 hearing scheduled as will need assisted outpatient treatment. 11/19/21: Continue with haldol po and haldol decanoate 50mg IM tomorrow. Will r educe prns in coming days/weeks due to additional decanoate dose. 11/18/21: Continue with haldol 5mg qlunch & 10mg qhs along with haldol 5 mg prn TID prn. EKG ordered for QTc evaluation. 11/17/21: Increase haldol to 5mg qAM and 10mg qHS. 11/16/21: Continue with haldol BID and haldol decanoate, sleep will likely remain somewhat disrupted overnight due to shifted sleep/wake cycle. Scheduled reji chicas to help with this. Rosalino scheduled. 11/15/21: consolidating Haldol at hs did not help sleep and now more agitated in am though could also be related to Ativan taper. Will shift back to Haldol 5 mg BID. Dose of dec was chosen based on previous dystonia on 150 mg monthly, that was in combo with Clozaril which he is currently not willing to take. If persists, consider addition of an atypical ?Latuda (for reference: past med trials of Abilify, Seroquel, Zyprexa, thorazine, but not Latuda or Invega). 11/14/21: 1 more dose of Haldol 10 mg this hs, received Haldol dec 100 mg. Monitor for EPS and likely start Haldol 5 mg po for a few days tomorrow. Cogentin ongoing. d/c standing Ativan. Ambien to hs rather than prn and move room so has blinds and not was disturbed by nurses station. trazodone prn if ineffective. 11/13/21: 303 granted. d/c Clozaril and consolidate Haldol to hs. He is agreeing to CONDE when can determine appropriate dose. Continue MNPR. 11/12/21: Clozaril 100 mg po qhs. Will taper standing Ativan dosing. Some of his complaints today related to the prn Haldol given last 2 days so will continue same standing dose. Will offer CONDE Haldol dec soon. 303 hearing in am. 11/11/21: As on standing Haldol and Ativan, decrease frequency or PO prns. Patient has not been aggressive but will box the air and is still not sleeping well so MNPR remains in place. Increase Clozaril 75 mg po qhs. 11/10/21: add standing Cogentin BID and Ativan 1 mg TID. Fasting labs in am if will cooperate. MNPR for ongoing psychosis with poor boundaries. 11/09/21: The patient was admitted to the [facility] ([facility] inpatient mental health unit) on q15 min checks (behavioral with suicide precautions) for safety. The patient will participate in group, recreational, and milieu therapies and will be offered additional individual and family sessions as clinically appropriate. He desires to resume his Clozaril and Haldol and has accepted 2 doses of Haldol 5 mg already without dystonia. Will begin 25 mg clozapine this hs and titrate with Haldol 5 mg BID pending more therapeutic level. He is not fully able to processes full risks/benefits but does voice a preference. Will likely need extended commitment and ultimately conversion to outpatient commitment with CONDE. Inventory Assets Strengths: interested in employment, taking PO meds Needs: outpatient care, CONDE Risk Factors Assessment Male: Yes : No Do You Have Access To A Gun?: No Mental Health Diagnoses: Yes Substance Use Disorders: No Previous Attempt: Yes Previous Psychiatric Hospitalization: Yes Protective Factors Assessment Stable Relationships: No Interval History Identifying Information LEXII TEE is a 31-year-old M who currently lives in alone in [place], has a history of schizophrenia, and was admitted on 11/08/21 19:01 on a 302 involuntary commitment for disorganized behavior. Chief Complaint "I need to get back to work". Review of Systems Sleep Information Total Hours of Sleep: 5.5 Sleep Comments: Pt was pacing on the unit and required meds. Meal Information Percent Meal Consumed - Breakfast: 100 Percent Meal Consumed - Lunch: 100 Percent Meal Consumed - Dinner: 100 Subjective Subjective Patient was seen & assessed and interval progress reviewed with nursing and social work. Future focussed. Planning his week. c/o knee pain but Tylenol helps and was walking laps with peers soon after. He was cooperative with nail care (initiated wanting to have it done). Physical Exam Psychiatric Orientation: alert, oriented x 3, oriented to person and oriented to place Apperance: appropriately dressed and appropriately groomed Eye Contact: + fair eye contact Motor Behavior: no abnormal motor movements Speech: no pressured speech Affect: + constricted affect Mood: no depressed mood Thought Process: goal directed thought process Thought Content: + preoccupation (his schedule); not paranoid Suicidal Thoughts: denies suicidal thoughts Homicidal Thoughts: denies homicidal thoughts Hallucinations: no auditory hallucinations and no visual hallucinations Cognition: attention grossly intact and language grossly intact Insight: + limited insight Vital Signs (Past 24 Hours) Last Vital Signs Temp 36.9 C 11/24/21 06:39 Pulse 99 H 11/24/21 06:39 Resp 18 11/24/21 06:39 BP 132/84 11/24/21 06:39 Pulse Ox 98 11/20/21 08:14 Results & Data ([facility]) Current Inpatient Medications Current Inpatient Medications: Current Inpatient Medications Acetaminophen (Acetaminophen 325 Mg Tab) 650 mg PO Q4H PRN PRN Reason: Headache or Minor Fever Stop: 12/08/21 19:00 Last Admin: 11/24/21 09:35 Dose: 650 mg Documented by: Al Hydrox/Mg Hydrox/Simethicone (Aluminum/Magnesium Susp 30 Ml Udc) 30 ml PO Q4H PRN PRN Reason: GI Upset Stop: 12/08/21 19:00 Benztropine Mesylate (Benztropine Mesylate 1 Mg/Ml 2 Ml Amp) 1 mg IM Q8 PRN PRN Reason: Agitation Stop: 12/09/21 09:49 Benztropine Mesylate (Benztropine Mesylate 1 Mg Tab) 1 mg PO BID [facility] Stop: 12/13/21 20:59 Last Admin: 11/24/21 08:02 Dose: 1 mg Documented by: Bismuth Subsalicylate (Bismuth Subsalicylate Liqd 236 Ml) 15 ml PO PRN PRN PRN Reason: Loose Stool Stop: 12/08/21 19:00 Haloperidol (Hal[facility] 5 Mg Tab) [facility] Stop: 12/18/21 11:59 Last Admin: 11/24/21 12:27 Dose: 5 mg Documented by: Haloperidol (Haloperidol 5 Mg Tab) 10 mg PO [facility] Stop: 12/17/21 21:59 Last Admin: 11/23/21 21:26 Dose: 10 mg Documented by: Haloperidol (Haloperidol 5 Mg Tab) 5 mg PO TID PRN PRN Reason: Agitation Stop: 12/11/21 12:36 Last Admin: 11/19/21 18:16 Dose: 5 mg Documented by: Haloperidol Lactate (Haloperidol Lactate 5 Mg/Ml 1 Ml Vial) 10 mg IM Q8 PRN PRN Reason: Anxiety/Agitation Stop: 12/09/21 09:49 Lorazepam (Lorazepam 2 Mg/1 Ml Vial) 2 mg IM Q6 PRN PRN Reason: Anxiety/Agitation Stop: 12/09/21 09:49 Lorazepam (Lorazepam 1 Mg Tab) 1 mg PO Q6 PRN PRN Reason: Anxiety/Agitation Stop: 12/09/21 09:49 Last Admin: 11/21/21 01:24 Dose: 1 mg Documented by: Magnesium Hydroxide (Magnesium Hydroxide Susp 30 Ml Udc) 30 ml PO DAILY PRN PRN Reason: Constipation Stop: 12/08/21 19:00 Last Admin: 11/16/21 05:51 Dose: 30 ml Documented by: Melatonin (Melatonin 3 Mg Tab) 3 mg PO [facility] Stop: 12/16/21 21:59 Last Admin: 11/23/21 21:26 Dose: 3 mg Documented by: Polyethylene Glycol (Polyethylene (Miralax) 17 Gm Pack) 17 gm PO DAILY PRN PRN Reason: Constipation Stop: 12/16/21 13:25 Senna/Docusate Sodium (Docusate Sodium/Senna 50/8.6mg Tab) 1 [facility] Stop: 12/17/21 08:59 Last Admin: 11/24/21 08:00 Dose: 1 tab Documented by: Sodium Chloride (Sodium Chloride 0.65% Na Soln 45 Ml ([place])) 1 - 2 sprays NA PRN PRN PRN Reason: Nasal Dryness/Congestion Stop: 12/08/21 19:00 Trazodone HCl (Trazodone Hcl 50 Mg Tab) 50 mg PO HS PRN PRN Reason: Insomnia Stop: 12/14/21 21:59 Last Admin: 11/21/21 00:54 Dose: 50 mg Documented by: Zolpidem Tartrate (Zolpidem Tartrate 10 Mg Tab) 10 mg PO HS [facility] Stop: 12/14/21 21:59 Last Admin: 11/23/21 21:26 Dose: 10 mg Documented by: Mental Health & Subst Abuse Tx Psychiatrist Name of Psychiatrist: Katie Scott Psychiatrist's Date of Appointment with Psychiatrist: 12/13/21 Time of Appointment with Psychiatrist: 2:30 p.m. Psychiatric Appointment Comment: [address] [facility] Therapist Name of Therapist: None Piece Maker Name of Piece Maker: [facility] - Todd Gee Phone Number for Piece Maker: [phone] Date of Appointment with Piece Maker: 11/28/21 Time of Appointment with Piece Maker: 3:30 p.m. Case Management Appointment Comment: Will meet you at your apartment Post Discharge Appointments Primary Care Physician Name Of Family Doctor: DEVYN [facility] Date of Appointment with PCP: 02/11/22 Time of Appointment with PCP: 10:20 a.m. Provider Appointment Comment: [address] [facility] Contact Information Discharge Discharge Address: [address] [place] [address], [facility], [place] [address] (1) Schizophrenia Schizophrenia type: disorganized schizophrenia Qualified Code(s): F20.1 - Disorganized schizophrenia
[2021-11-24] MEDS: ZOLPIDEM TARTRATE 10 MG TAB PO SCH (21:20)
[2021-11-24] MEDS: MELATONIN 3 MG TAB PO SCH (21:20)
[2021-11-25] MEDS: DOCUSATE SODIUM/SENNA 50/8.6MG TAB PO SCH (08:34)
[2021-11-25] MEDS: BENZTROPINE MESYLATE 1 MG TAB PO SCH ×2 (08:36→20:23)
[2021-11-25] MEDS ORDERED: IBUPROFEN 200 MG TAB PO SCH (11:05)
[2021-11-25] MEDS ORDERED: IBUPROFEN 200 MG TAB PO PRN (11:11)
[2021-11-25] MEDS: haloperidoL 5 MG TAB PO SCH ×2 (12:06→20:22)
--- NOTE | 2021-11-25 13:18 | Psychiatric Progress Note ---
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 He requires inpatient hospitalization for safety and monitoring. 11/25/21: improving, PLAN: continue current meds and tx plan. will be discharged on an outpatient commitment. (1) Schizophrenia: Inventory Assets Strengths: interested in employment, taking PO meds Needs: outpatient care, CONDE Risk Factors Assessment Male: Yes : No Do You Have Access To A Gun?: No Mental Health Diagnoses: Yes Substance Use Disorders: No Previous Attempt: Yes Previous Psychiatric Hospitalization: Yes Protective Factors Assessment Stable Relationships: No Interval History Identifying Information LEXII TEE is a 31-year-old M who currently lives in alone in [place], has a history of schizophrenia, and was admitted on 11/08/21 19:01 on a 302 involuntary commitment for disorganized behavior. Chief Complaint knee pain Review of Systems Sleep Information Total Hours of Sleep: 8.5 Sleep Comments: Pt was pacing on the unit and required meds. Meal Information Percent Meal Consumed - Breakfast: 100 Percent Meal Consumed - Lunch: 100 Percent Meal Consumed - Dinner: 100 Subjective Subjective Patient was seen & assessed and interval progress reviewed with treatment team. Remains focussed on routine and discharge planning. Meeting today with CM, plans to reach out to his employer, tylenol less effective than yesterday and requests ibuprofen. Reviewed hx of blurry vision with mobic and naprosyn. Will give 400 mg ibuprofen as trial and increase to 600 mg if tolerated. Physical Exam Psychiatric Orientation: alert and oriented x 3 Apperance: appropriately dressed and appropriately groomed Eye Contact: + fair eye contact Motor Behavior: no abnormal motor movements Speech: + abnormal rate/rhythm/volume of speech (stutter (apparently baseline)) Affect: + constricted affect Mood: no depressed mood Thought Process: + concrete thought process Thought Content: + preoccupation (his schedule) and reality based without delusions Suicidal Thoughts: denies suicidal thoughts Homicidal Thoughts: denies homicidal thoughts Hallucinations: no auditory hallucinations and no visual hallucinations Cognition: attention grossly intact and language grossly intact Vital Signs (Past 24 Hours) Last Vital Signs Temp 36.4 C L 11/25/21 06:41 Pulse 76 11/25/21 06:42 Resp 18 11/25/21 06:41 BP 119/85 11/25/21 06:42 Pulse Ox 98 11/20/21 08:14 Results & Data ([facility]) Current Inpatient Medications Current Inpatient Medications: Current Inpatient Medications Acetaminophen (Acetaminophen 325 Mg Tab) 650 mg PO Q4H PRN PRN Reason: Headache or Minor Fever Stop: 12/08/21 19:00 Last Admin: 11/24/21 09:35 Dose: 650 mg Documented by: Al Hydrox/Mg Hydrox/Simethicone (Aluminum/Magnesium Susp 30 Ml Udc) 30 ml PO Q4H PRN PRN Reason: GI Upset Stop: 12/08/21 19:00 Benztropine Mesylate (Benztropine Mesylate 1 Mg/Ml 2 Ml Amp) 1 mg IM Q8 PRN PRN Reason: Agitation Stop: 12/09/21 09:49 Benztropine Mesylate (Benztropine Mesylate 1 Mg Tab) 1 mg PO BID [facility] Stop: 12/13/21 20:59 Last Admin: 11/25/21 08:36 Dose: 1 mg Documented by: Bismuth Subsalicylate (Bismuth Subsalicylate Liqd 236 Ml) 15 ml PO PRN PRN PRN Reason: Loose Stool Stop: 12/08/21 19:00 Haloperidol (Haloperidol 5 Mg Tab) 5 mg PO DAILYBL [facility] Stop: 12/18/21 11:59 Last Admin: 11/25/21 12:06 Dose: 5 mg Documented by: Haloperidol (Haloperidol 5 Mg Tab) 10 mg PO HS [facility] Stop: 12/17/21 21:59 Last Admin: 11/24/21 21:20 Dose: 10 mg Documented by: Haloperidol (Haloperidol 5 Mg Tab) 5 mg PO TID PRN PRN Reason: Agitation Stop: 12/11/21 12:36 Last Admin: 11/19/21 18:16 Dose: 5 mg Documented by: Haloperidol Lactate (Haloperidol Lactate 5 Mg/Ml 1 Ml Vial) 10 mg IM Q8 PRN PRN Reason: Anxiety/Agitation Stop: 12/09/21 09:49 Ibuprofen (Ibuprofen 200 Mg Tab) 400 mg PO Q6H PRN PRN Reason: Pain Stop: 12/25/21 11:04 Last Admin: 11/25/21 12:05 Dose: 400 mg Documented by: Lorazepam (Lorazepam 2 Mg/1 Ml Vial) 2 mg IM Q6 PRN PRN Reason: Anxiety/Agitation Stop: 12/09/21 09:49 Lorazepam (Lorazepam 1 Mg Tab) 1 mg PO Q6 PRN PRN Reason: Anxiety/Agitation Stop: 12/09/21 09:49 Last Admin: 11/21/21 01:24 Dose: 1 mg Documented by: Magnesium Hydroxide (Magnesium Hydroxide Susp 30 Ml Udc) 30 ml PO DAILY PRN PRN Reason: Constipation Stop: 12/08/21 19:00 Last Admin: 11/16/21 05:51 Dose: 30 ml Documented by: Melatonin (Melatonin 3 Mg Tab) 3 mg PO HS LINO Stop: 12/16/21 21:59 Last Admin: 11/24/21 21:20 Dose: 3 mg Documented by: Polyethylene Glycol (Polyethylene (Miralax) 17 Gm Pack) 17 gm PO DAILY PRN PRN Reason: Constipation Stop: 12/16/21 13:25 Senna/Docusate Sodium (Docusate Sodium/Senna 50/8.6mg Tab) 1 tab PO QAM LINO Stop: 12/17/21 08:59 Last Admin: 11/25/21 08:34 Dose: 1 tab Documented by: Sodium Chloride (Sodium Chloride 0.65% Na Soln 45 Ml (Roberts)) 1 - 2 sprays NA PRN PRN PRN Reason: Nasal Dryness/Congestion Stop: 12/08/21 19:00 Trazodone HCl (Trazodone Hcl 50 Mg Tab) 50 mg PO HS PRN PRN Reason: Insomnia Stop: 12/14/21 21:59 Last Admin: 11/21/21 00:54 Dose: 50 mg Documented by: Zolpidem Tartrate (Zolpidem Tartrate 10 Mg Tab) 10 mg PO HS LINO Stop: 12/14/21 21:59 Last Admin: 11/24/21 21:20 Dose: 10 mg Documented by: Mental Health & Subst Abuse Tx Psychiatrist Name of Psychiatrist: Katie Scott Psychiatrist's Date of Appointment with Psychiatrist: 12/13/21 Time of Appointment with Psychiatrist: 2:30 p.m. Psychiatric Appointment Comment: [address] [facility] Therapist Name of Therapist: None Parliamentary Archivist Name of Parliamentary Archivist: [facility] Todd Gee Phone Number for Parliamentary Archivist: [phone] Date of Appointment with Parliamentary Archivist: 11/28/21 Time of Appointment with Parliamentary Archivist: 3:30 p.m. Case Management Appointment Comment: Will meet you at your apartment Post Discharge Appointments Primary Care Physician Name Of Family Doctor: DEVYN - Dr. Blair Primary [facility] Date of Appointment with PCP: 02/11/22 Time of Appointment with PCP: 10:20 a.m. Provider Appointment Comment: [facility] Contact Information Discharge Discharge Address: [address] [place] [address], [place] [address] (1) Schizophrenia Schizophrenia type: disorganized schizophrenia Qualified Code(s): F20.1 - Disorganized schizophrenia
[2021-11-25] MEDS: MELATONIN 3 MG TAB PO SCH (20:22)
[2021-11-25] MEDS: ZOLPIDEM TARTRATE 10 MG TAB PO SCH (20:23)
[2021-11-26 06:39] VITALS: TEMP 97.5
[2021-11-26] MEDS: BENZTROPINE MESYLATE 1 MG TAB PO SCH (08:35)
[2021-11-26] MEDS: DOCUSATE SODIUM/SENNA 50/8.6MG TAB PO SCH (08:35)
--- NOTE | 2021-11-26 09:04 | Discharge Summary ---
Date of Service November 26, 2021 History of Present Illness Police brought patient to ED on warrant after he reportedly broke into a neighbor's apartment and was acting strange. He claims he was hiding out there so he wouldn't scare 2 women who were in the hallway. He reported taking a bottle of sleeping pills and when confronted about whether or not this was true he stated he swallowed the plastic pill bottle. He reported stabbing himself in the arm but there was not wound and asked officers to shoot him. He went on and on about dying of COVID, states COVID disrupted his work at [employer]. 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 He also maintains that he takes his psychiatric medications when records indicate he has likely been off of clozaril and Haldol for most of last year. On the unit he appears restless and posturing at times and otherwise covers his head with a blanket. He doesn't keep a shirt on and will wander out of the [place] with his pants down. He has masturbated in front of staff. When asked about supports, discussed family as previously reported his parents are , now he claims those were not his biological parents. He cannot tell us how he support himself or what he does during the day to pass the time. He was seen in ED 05/04 for altered mental status and I previously evaluated patient on consult service in 06/03 as he was admitted medically for ?dystonia following his Haldol dec injection. Physical Exam Psychiatric See admission H&P and DOD assessment. Vital Signs (Past 24 Hours) Last Vital Signs Temp 36.4 C L 11/26/21 06:37 Pulse 83 11/26/21 06:38 Resp 18 11/26/21 06:37 BP 141/82 H 11/26/21 06:38 Pulse Ox 98 11/20/21 08:14 Principal Diagnosis schizophrenia Psychiatric Data See daily stay summary. In short, safety was maintained and the patient was initially quite disorganized and restless, he required multiple prns of Ativan and Haldol to stabilize but was cooperative with PO meds throughout his stay. Even as his thoughts were more organized and experiencing less hallucinations he was having difficulty sleeping which resolved with Ambien. 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 Only a 2 week supply was dispensed and he can likely transition to as needed once home. We attempted to restart clozaril but he complained of sedation as the dose was titrated and was clear he did not want further titration or to have weekly blood draws as an outpatient. As Haldol was effective and he agreed to resume CONDE, a dose of Haldol 100 mg on 11/14 and then the remaining 50 mg on 11/20 to minimize dystonia. He continued on Haldol 5 mg am and 10 mg hs with Cogentin for the remainder of his stay but Haldol oral taper was initiated to 5 mg BID upon discharge and can likely be tapered further at the discretion of [facility]. As his mental status cleared he was counseled re: technician terminal and repeater risks of Haldol with regards to TD. His main focus was being able to function to return to work at [employer]. A family session was held with a local friend and safety plan was completed prior to discharge. He does have stuttering at baseline, it was worse when he was on higher doses of Haldol but he was also experiencing significant thought disorganization at that time. Day of Discharge Assessment Today the patient voices readiness for discharge. They note improvement in mood and deny thoughts to harm self or others. He denies dystonia and has good ROM. His affect remains rather blunted. Thoughts are organized and they are improved from admission. There is no evidence of psychosis. They agree to take mediations as prescribed and keep follow-up appointments. They are stable for discharge to outpatient level of care. Transition of Care Transition Of Care Record: was reviewed with the patient Advance Directives Advance Directives Information Provided: Yes Advance Directives: No Mental Health Advance Directive: No Advance Directives on File: No Living Will: No Power of Grinder: No Advance Directives Reason:: Declines as Mental Health Visit. Risk Factors Assessment Male: Yes : No Do You Have Access To A Gun?: No Mental Health Diagnoses: Yes Substance Use Disorders: No Previous Attempt: Yes Previous Psychiatric Hospitalization: Yes Protective Factors Assessment Stable Relationships: No Tobacco Cessation at Discharge Tobacco Cessation Medication Prescribed at Discharge: Not Applicable/Non-Smoker Antipsychotic Medications the patient is prescribed 2 different preparation of Haldol (PO and decanoate) until PO can be tapered. Total Time Total Time Spent: Greater Than 30 Minutes Discharge Data Lab Results 11/08/21 11/08/21 11/08/21 14:45 14:45 14:45 WBC 7.70 RBC 4.78 Hgb 14.7 Hct 42.2 MCV 88.3 MCH 30.8 MCHC 34.8 RDW Std Deviation 41.4 RDW Coeff of Tawanna 13.0 Plt Count 343 MPV 10.4 Immature Gran % (Auto) 0.1 Neut % (Auto) 54.4 Lymph % (Auto) 34.2 Lamar % (Auto) 7.3 Eos % (Auto) 3.4 Baso % (Auto) 0.6 Neut # (Auto) 4.19 Lymph # (Auto) 2.63 Lamar # (Auto) 0.56 Eos # (Auto) 0.26 Baso # (Auto) 0.05 Immature Gran # (Auto) 0.01 Sodium 138 Potassium 3.4 L Chloride 103 Carbon Dioxide 30 Anion Gap 5 BUN 11 Creatinine 1.01 Est Cr Clr Drug Dosing 116.6 Est GFR ( Amer) 116.0 Est GFR (Non-Af Amer) 100.0 BUN/Creatinine Ratio 10.9 Glucose 93 Fasting Glucose Calcium 9.3 Total Bilirubin 0.5 AST 26 ALT 23 Alkaline Phosphatase 62 Total Protein 7.9 Albumin 4.4 Globulin 3.5 Albumin/Globulin Ratio 1.3 Triglycerides Cholesterol LDL Cholesterol, Calc VLDL Cholesterol, Calc HDL Cholesterol Cholesterol/HDL Ratio TSH 1.042 Urine Color Urine Appearance Urine pH Ur Specific Douglas Urine Protein Urine Glucose (UA) Urine Ketones Urine Blood Urine Nitrite Urine Bilirubin Urine Urobilinogen Ur Leukocyte Esterase Urine WBC (Auto) Urine RBC (Auto) U Hyaline Cast (Auto) U Epithel Cells (Auto) Urine Bacteria (Auto) Salicylates Urine Opiates Screen Ur Methadone, Qual Acetaminophen Urine Barbiturates Ur Phencyclidine (PCP) U Amphetamin/Meth Scrn MDMA (Ecstasy) Screen U Benzodiazepines Scrn Ur Cocaine Metabolite U Marijuana (THC) Screen Ethyl Alcohol mg/dL SARS-CoV-2, RNA, NAAT 11/08/21 11/08/21 11/08/21 14:45 14:45 15:06 WBC RBC Hgb Hct MCV MCH MCHC RDW Std Deviation RDW Coeff of Tawanna Plt Count MPV Immature Gran % (Auto) Neut % (Auto) Lymph % (Auto) Lamar % (Auto) Eos % (Auto) Baso % (Auto) Neut # (Auto) Lymph # (Auto) Lamar # (Auto) Eos # (Auto) Baso # (Auto) Immature Gran # (Auto) Sodium Potassium Chloride Carbon Dioxide Anion Gap BUN Creatinine Est Cr Clr Drug Dosing Est GFR ( Amer) Est GFR (Non-Af Amer) BUN/Creatinine Ratio Glucose Fasting Glucose Calcium Total Bilirubin AST ALT Alkaline Phosphatase Total Protein Albumin Globulin Albumin/Globulin Ratio Triglycerides Cholesterol LDL Cholesterol, Calc VLDL Cholesterol, Calc HDL Cholesterol Cholesterol/HDL Ratio TSH Urine Color Urine Appearance Urine pH Ur Specific Douglas Urine Protein Urine Glucose (UA) Urine Ketones Urine Blood Urine Nitrite Urine Bilirubin Urine Urobilinogen Ur Leukocyte Esterase Urine WBC (Auto) Urine RBC (Auto) U Hyaline Cast (Auto) U Epithel Cells (Auto) Urine Bacteria (Auto) Salicylates < 3.0 L Urine Opiates Screen Ur Methadone, Qual Acetaminophen < 3 L Urine Barbiturates Ur Phencyclidine (PCP) U Amphetamin/Meth Scrn MDMA (Ecstasy) Screen U Benzodiazepines Scrn Ur Cocaine Metabolite U Marijuana (THC) Screen Ethyl Alcohol mg/dL < 10.0 SARS-CoV-2, RNA, NAAT NEGATIVE 11/08/21 11/08/21 11/11/21 16:15 16:15 07:45 WBC RBC Hgb Hct MCV MCH MCHC RDW Std Deviation RDW Coeff of Tawanna Plt Count MPV Immature Gran % (Auto) Neut % (Auto) Lymph % (Auto) Lamar % (Auto) Eos % (Auto) Baso % (Auto) Neut # (Auto) Lymph # (Auto) Lamar # (Auto) Eos # (Auto) Baso # (Auto) Immature Gran # (Auto) Sodium Potassium Chloride Carbon Dioxide Anion Gap BUN Creatinine Est Cr Clr Drug Dosing Est GFR ( Amer) Est GFR (Non-Af Amer) BUN/Creatinine Ratio Glucose Fasting Glucose 91 Calcium Total Bilirubin AST ALT Alkaline Phosphatase Total Protein Albumin Globulin Albumin/Globulin Ratio Triglycerides 69 Cholesterol 184 LDL Cholesterol, Calc 124 VLDL Cholesterol, Calc 14 HDL Cholesterol 46 Cholesterol/HDL Ratio 4.0 TSH Urine Color Yellow Urine Appearance Clear Urine pH 6.5 Ur Specific Douglas 1.032 H Urine Protein 1+ H Urine Glucose (UA) Negative Urine Ketones 2+ H Urine Blood Negative Urine Nitrite Negative Urine Bilirubin Negative Urine Urobilinogen Negative Ur Leukocyte Esterase Negative Urine WBC (Auto) 1-5 Urine RBC (Auto) 0-4 U Hyaline Cast (Auto) 1-5 U Epithel Cells (Auto) 10-20 H Urine Bacteria (Auto) Negative Salicylates Urine Opiates Screen Neg Ur Methadone, Qual Neg Acetaminophen Urine Barbiturates Neg Ur Phencyclidine (PCP) Neg U Amphetamin/Meth Scrn Neg MDMA (Ecstasy) Screen Neg U Benzodiazepines Scrn Neg Ur Cocaine Metabolite Neg U Marijuana (THC) Screen Neg Ethyl Alcohol mg/dL SARS-CoV-2, RNA, NAAT Hospital Course (1) Schizophrenia: 11/23/21: interim care by Dr. Acuna reviewed. Continue current meds and treatment plan. Will decrease oral haldol dose upon discharge. 11/22/21: Continue medications. 304 commitment upheld. Established with shelter case manager. Support meeting scheduled. 11/21/21: Continue medications. 304 hearing tomorrow. 11/20/21: Received haldol decanoate 50mg IM. Continue overlap po haldol. 304 hearing scheduled as will need assisted outpatient treatment. 11/19/21: Continue with haldol po and haldol decanoate 50mg IM tomorrow. Will reduce prns in coming days/weeks due to additional decanoate dose. 11/18/21: Continue with haldol 5mg qlunch & 10mg qhs along with haldol 5 mg prn TID prn. EKG ordered for QTc evaluation. 11/17/21: Increase haldol to 5mg qAM and 10mg qHS. 11/16/21: Continue with haldol BID and haldol decanoate, sleep will likely remain somewhat disrupted overnight due to shifted sleep/wake cycle. Scheduled melatonin to help with this. Senna-colace scheduled. 11/15/21: consolidating Haldol at hs did not help sleep and now more agitated in am though could also be related to Ativan taper. Will shift back to Haldol 5 mg BID. Dose of dec was chosen based on previous dystonia on 150 mg monthly, that was in combo with Clozaril which he is currently not willing to take. If persists, consider addition of an atypical ?Latuda (for reference: past med trials of Abilify, Seroquel, Zyprexa, thorazine, but not Latuda or Invega). 11/14/21: 1 more dose of Haldol 10 mg this hs, received Haldol dec 100 mg. Monitor for EPS and likely start Haldol 5 mg po for a few days tomorrow. Cogentin ongoing. d/c standing Ativan. Ambien to hs rather than prn and move room so has blinds and not was disturbed by nurses station. trazodone prn if ineffective. 11/13/21: 303 granted. d/c Clozaril and consolidate Haldol to hs. He is agreeing to CONDE when can determine appropriate dose. Continue MNPR. 11/12/21: Clozaril 100 mg po qhs. Will taper standing Ativan dosing. Some of his complaints today related to the prn Haldol given last 2 days so will continue same standing dose. Will offer CONDE Haldol dec soon. 303 hearing in am. 11/11/21: As on standing Haldol and Ativan, decrease frequency or PO prns. Patient has not been aggressive but will box the air and is still not sleeping well so MNPR remains in place. Increase Clozaril 75 mg po qhs. 11/10/21: add standing Cogentin BID and Ativan 1 mg TID. Fasting labs in am if will cooperate. MNPR for ongoing psychosis with poor boundaries. 11/09/21: The patient was admitted to the [facility] ([facility] inpatient mental health unit) on q15 min checks (behavioral with suicide precautions) for safety. The patient will participate in group, recreational, and milieu therapies and will be offered additional individual and family sessions as clinically appropriate. He desires to resume his Clozaril and Haldol and has accepted 2 doses of Haldol 5 mg already without dystonia. Will begin 25 mg clozapine this hs and titrate with Haldol 5 mg BID pending more therapeutic level. He is not fully able to processes full risks/benefits but does voice a preference. Will likely need extended commitment and ultimately conversion to outpatient commitment with CONDE. Mental Health & Subst Abuse Tx Psychiatrist Name of Psychiatrist: Katie Scott Psychiatrist's Date of Appointment with Psychiatrist: 12/13/21 Time of Appointment with Psychiatrist: 2:30 p.m. Psychiatric Appointment Comment: [facility] (please bring your injection w/ you) Therapist Name of Therapist: . Auto Former Machine Operator Name of Auto Former Machine Operator: [facility] - Todd Gee Phone Number for Auto Former Machine Operator: [phone] Date of Appointment with Auto Former Machine Operator: 11/28/21 Time of Appointment with Auto Former Machine Operator: 3:30 p.m. Case Management Appointment Comment: Will meet you at your apartment Post Discharge Appointments Primary Care Physician Name Of Family Doctor: DEVYN Blair Primary Care Date of Appointment with PCP: 02/11/22 Time of Appointment with PCP: 10:20 a.m. Provider Appointment Comment: [id number] Smoking Cessation Counseling Tobacco Cessation Medication Prescribed at Discharge: Not Applicable/Non-Smoker Contact Information Discharge Discharge [address]: [address] [place] [id number] Discharge Plan Discharge Items Patient Disposition: Home - Self-Care Reason For Visit: SUICIDAL IDEATION Discharge Diagnosis: schizophrenia Activity: Resume your previous activity Non-emergency contact: Primary Care Provider, Psychiatrist and Premium Representative Call non-emergency contact if: you have any medication questions and your symptoms worsen Follow-up/Referrals: Lilibeth Morton MD [Primary Care Provider] - Diet: Regular Addtl Attending Provider Instructions: SPECIAL CARE INSTRUCTIONS: 1. Follow through with your scheduled aftercare appointments. If unable to keep an appointment, please call to reschedule. 2. Take your medication only as prescribed. Medication should not be changed or stopped without the approval of your doctor. In the event of worsening symptoms or concerns about side effects, contact your doctor immediately. 3. Utilize new healthy coping skills, anger management skills, and stress management skills learned during your hospitalization. Journal feelings and process them with a support person. Identify stressors or situations that may result in relapse, deterioration or inappropriate behaviors and develop a plan to deal with those issues. 4. If your coping skills are ineffective and you are in crisis, contact your outpatient providers for direction. If unable to reach your providers, please call the [facility] CRISIS LINE AT , go to the [facility] walk-in center at [address], [address], [place], or go to the closest Emergency Room. 5. Avoid alcohol and un-prescribed drugs. 6. You have been provided with the Mental Health Advance Directives Pamphlet for your review. 7. Your condition is stable for discharge to outpatient level of care, but recovery is an ongoing process. Ifthoughts to harm yourself or others return, follow the safety plan developed during your stay. Planning for a safe return home includes securing weapons. Our treatment team recommends weaponsbe removed from the home until your outpatient provider reassesses your progress. In rare cases where the items themselvescannot be removed, guns and ammunitionshould be secured separatelyand keys stored by a reliable personoutside of the home. If you were admitted on an involuntary commitment, the police or other legal authorities may be involved in this process. AFTERCARE APPOINTMENTS: * Please call your insurance company prior to your scheduled appointment to confirm your aftercare providers are covered. Take your insurance information to your appointments. WHO TO CALL AND WHEN: Medical Emergencies: For questions or emergencies related to your hospital stay, please contact the Inpatient Behavioral Health Unit at [phone]. A hotel security officer is on-call 06/04 for the Behavioral Health Unit for emergencies At any time you feel your situation is an emergency, you may also call 911 immediately. Pending Studies at Discharge: No Stand-Alone Forms: My [facility], Smoking Cessation Medications and DC Order Prescriptions: New haloperidol 5 mg Tablet 5 mg PO BID 30 Days Qty: 60 RF: 0 melatonin 3 mg Tablet 3 mg PO HS Qty: 14 RF: 0 benztropine 1 mg Tablet 1 mg PO BID 30 Days Qty: 60 RF: 0 zolpidem [Ambien] 10 mg Tablet 10 mg PO HS 14 Days Qty: 14 RF: 0 Continued haloperidol decanoate 100 mg/mL solution 150 mg IM Q4WK Qty: 1 RF: 0 Discontinued haloperidol decanoate 100 mg/mL solution 150 mg IM Q4WK RF: 0 clozapine 100 mg tablet 50 mg PO HS RF: 0 Discharge Orders: Discharge Order (Routine); Ordered 11/26/21 Ordered By: Gabbi Vale Admission Data Admit Date/Time: 11/08/21 19:01 Attending Provider: Gabbi Vale Admit Provider: Gabbi Vale Primary Care Provider: Lilibeth Morton V. Other Interventions: PSY Interdisciplinary Discharge Planning Last Done: 11/25/21 14:59 Coding Level of Care Code 32501 D/C day mgmt > 30 min Diagnoses Schizophrenia F20.1 Schizophrenia type: disorganized schizophrenia
[2021-11-26 09:32] VITALS: BP 132/84; PULSE 55
== END 2021-11-26 10:00 | disposition home or self-care (01) | DRG 885 ==
LOC: ED 14:19 → 3S 19:01
DX: Z88.6 Allergy status to analgesic agent; F20.1 Disorganized schizophrenia; Z91.19 Patient's noncompliance with other medical treatment and regimen

== ENCOUNTER 2021-12-11 15:13 | Inpatient (IN) ==
--- NOTE | 2021-12-11 15:52 | Emergency Department Note ---
Impression & Plan Mood disorder, Hallucinations ED Provider Note NAME: LEXII TEE AGE: 31 SEX: M : 1990 ARRIVES VIA: [employer] INFORMANT: Patient ED PROVIDER(S): Emmanuel Almeida DO CHIEF COMPLAINT: Mood disorder HPI: Patient is a 22-year-old male who is a known schizophrenic with past medical history of hallucinations and previous suicide attempt that presents to the ER brought in by police. He was seen here yesterday and he was discharged home. His case was discussed with Dr. Vale who knows the patient well and he was given his injection of Haldol and discharged. 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 He threatened the director security management and was brought in by police. His judo teacher is petitioning a 302 as he was threatening to kill the patient judo teacher. Patient denies any suicidal homicidal ideations. No auditory or visual hallucinations. ROS: See above HPI for pertinent positives & negatives. A total of 10 systems reviewed and were otherwise negative. PAST MEDICAL HISTORY:See Below PAST SURGICAL HISTORY:See Below FAMILY HISTORY:See Below SOCIAL HISTORY:See Below HOME MEDICATIONS:See Below ALLERGIES:See Below VITALS:See Below PHYSICAL EXAMINATION: GENERAL: Sitting up in bed, alert, well appearing, well nourished, no distress, non-toxic EYE EXAM: normal conjunctiva. OROPHARYNX: no exudate, no erythema, lips, buccal mucosa, and tongue normal and mucous membranes are moist NECK: supple, no nuchal rigidity, no adenopathy, non-tender LUNGS: Clear to auscultation. Normal chest wall mechanics HEART: no murmurs, S1 normal and S2 normal ABDOMEN: abdomen soft, non-tender, normo-active bowel sounds, no masses, no rebound or guarding. UPPER EXTREMITIES: upper extremities are grossly normal. LOWER EXTREMITIES: No pitting edema. NEURO EXAM: Normal sensorium, cranial nerves II-XII grossly intact, normal speech, no gross weakness of arms, no gross weakness of legs. PSYCH: Denies any suicidal or homicidal ideations. No auditory or visual hallucinations. Patient with pressured speech and intermittent stuttering. MEDICAL DECISION MAKING: Patient is a 31-year-old male past medical history of schizophrenia who presents to the ER on a 302 with police as he was threatening to kill his judo teacher. He was seen here yesterday and evaluated by myself but had no suicidal homicidal threats or ideations. He was having pressured speech and clearly responding to some hallucinations but otherwise want to go home. Did discuss the case with Dr. Vale who was gracious enough to review him with me and we elected to give him a dose of his IM Haldol and have him follow-up with [facility] today. Today he is still having clear hallucinations and responding to them. He has been resting comfortably in the ER. Blood work was obtained. Labs show no significant leukocytosis or anemia. BMP along with LFTs bilirubin and TSH was unremarkable. UA was contaminated. Tox was negative. Covid negative. Patient with the pressured speech, clear hallucinations and responding to internal stimuli in combination with making homicidal threats 302 was signed. Patient was signed out at the change of shift to Dr. Jimenez awaiting placement. Per [facility] they will likely have a bed and admit him. Observation Status: Indication: mood disorder Patient with no pertinent family history, was seen first at 1520 hrs and was necessary in order to determine medical stability and avoid unnecessary admission. Upon reevaluation, 4.5 hours of observation revealed that the patient should be admitted to a psychiatric facility. Disposition date and time 12/11/2021 at 7:40 PM patient was signed out Dr. Jimenez awaiting placement Triage Nursing notes reviewed. Limited review of prior medical records performed Vital Signs: reviewed and remarkable for no significant abnormalities Differential diagnosis: Mood disorder, infection, hypoglycemia, electrolyte abnormalities, cardiac sources, intracerebral event, toxicologic, trauma, neurologic, as well as other pathologies. ER treatment provided: See below Diagnostics interpreted by me: ECG: none Laboratory studies: As stated above and show below. Imaging studies: See below Consultation(s): none Critical Care: None Past Med/Surg History Medical History Alcohol use disorder . 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 Followed by [facility] by Dr. Aguilar. Managed with clozapine Sinus tachycardia Sleep deprivation Somnolence Suicide attempt Weakness generalized Surgical History No history of previous surgery Family History (System 12/11/21 @ 07:05 by Jayleen Gallo) Denies family history of Colon cancer Ovarian cancer Prostate cancer Myocardial infarction Breast cancer Social History (System 12/11/21 @ 07:05 by Jayleen Gallo) Smoking Status: Never smoker Cigarettes Per Day: Patient unresponsive at this time; Hx Alcohol Use: No Hx Substance Use: No Preferred Language: Greenlandic Communication Ability: Effective Visual Impairment: No Limitations Hearing Ability: Normal Director Park Required: No Beliefs That Will Affect Care: None marital status: Single Current Living Situation: Other Current Living Situation Comment: Apartment , see ED admission report current occupational status: employed Feels Safe at Home: Yes Childhood Exposure to Second-Hand Smoke: No Dental Care, Regularly: No Physical Activity Frequency: Does not Exercise Seatbelt Use: always Sunscreen Use: No Assistive Devices: Glasses Allergies Allergies Allergy/AdvReac Type Severity Reaction Status Date / Time meloxicam AdvReac blurred Verified 12/11/21 07:05 vision naproxen AdvReac blurred Verified 12/11/21 07:05 vision Home Meds Previous Rx's Medication Instructions Recorded benztropine 1 mg tablet 1 mg PO BID 30 Days #60 tab 11/26/21 haloperidol 5 mg tablet 5 mg PO BID 30 Days #60 tab 11/26/21 haloperidol decanoate 100 mg/mL 150 mg IM Q4WK #1 vial 11/26/21 intramuscular solution melatonin 3 mg tablet 3 mg PO HS #14 tab 11/26/21 Results & Data (ED) Vital Signs Vital Signs - 24 hr 12/11/21 15:22 Temperature 37.3 C Temperature Source Oral Pulse Rate 112 H Respiratory Rate 20 Respiratory Effort / Characteristics Non-Labored Respiratory Depth Normal Blood Pressure 135/93 Blood Pressure Mean 107 Pulse Oximetry 97 Oxygen Delivery Method Room Air Sepsis Recent Fever Within 48 Hours No Sepsis New/Unexplained Change in Mental Status N/A Sepsis Action Taken by Nursing No Action Required Laboratory Data Result diagrams: 12/11/21 16:27 12/11/21 16:27 Lab Results 12/11/21 12/11/21 12/11/21 Range/Units 15:56 15:56 16:27 WBC 8.31 (4.8-10.8) K/uL RBC 4.83 (4.7-6.1) M/uL Hgb 14.8 (14.0-18.0) g/dL Hct 43.1 (42-52) % MCV 89.2 (80-100) fL MCH 30.6 (25-34) pg MCHC 34.3 (32-36) g/dL RDW Std Deviation 45.0 (36.4-46.3) fL RDW Coeff of Tawanna 13.8 (11.5-14.5) % Plt Count 366 (130-400) K/uL MPV 10.7 H (7.4-10.4) fL Immature Gran % (Auto) 0.1 % Neut % (Auto) 64.5 % Lymph % (Auto) 26.6 % Randolph % (Auto) 6.0 % Eos % (Auto) 2.2 % Baso % (Auto) 0.6 % Neut # (Auto) 5.36 (1.4-6.5) K/uL Lymph # (Auto) 2.21 (1.2-3.4) K/uL Randolph # (Auto) 0.50 (0.11-0.59) K/uL Eos # (Auto) 0.18 (0-0.5) K/uL Baso # (Auto) 0.05 (0-0.2) K/uL Immature Gran # (Auto) 0.01 (0.00-0.02) K/uL Sodium (136-145) mmol/L Potassium (3.5-5.1) mmol/L Chloride (98-107) mmol/L Carbon Dioxide (21-32) mmol/L Anion Gap (3-11) BUN (6-23) mg/dl Creatinine (0.6-1.4) mg/dl Est Cr Clr Drug Dosing ml/min Est GFR ( Amer) ml/min Est GFR (Non-Af Amer) ml/min BUN/Creatinine Ratio (10-20) Glucose (70-99(Fasting)) mg/dl Calcium (8.5-10.1) mg/dl Total Bilirubin (0.2-1.0) mg/dl AST (13-39) U/L ALT (7-52) U/L Alkaline Phosphatase (34-104) U/L Total Protein (6.0-8.3) gm/dl Albumin (3.4-5.0) gm/dl Globulin (2.5-4.0) gm/dl Albumin/Globulin Ratio (0.9-2) TSH (0.300-4.500) uIu/ml Urine Color Dark Yellow Urine Appearance Clear (Clear) Urine pH 6.0 (4.5-7.5) Ur Specific Lysite 1.032 H (1.000-1.030) Urine Protein 2+ H (Negative) Urine Glucose (UA) Negative (Negative) Urine Ketones Trace H (Negative) Urine Blood Negative (Negative) Urine Nitrite Negative (Negative) Urine Bilirubin Negative (Negative) Urine Urobilinogen Negative (Negative) Ur Leukocyte Esterase Negative (Negative) Urine WBC (Auto) 1-5 (0-5) /hpf Urine RBC (Auto) 0-4 (0-4) /hpf U Hyaline Cast (Auto) 10-30 H (0-5) /lpf U Epithel Cells (Auto) 10-20 H (0-5) /lpf Urine Bacteria (Auto) Negative (Negative) Salicylates (3.0-30) mg/dl Urine Opiates Screen Neg (Neg) Ur Methadone, Qual Neg (Neg) Acetaminophen (10-30) ug/ml Urine Barbiturates Neg (Neg) Ur Phencyclidine (PCP) Neg (Neg) U Amphetamin/Meth Scrn Neg (Neg) MDMA (Ecstasy) Screen Neg (Neg) U Benzodiazepines Scrn Neg (Neg) Ur Cocaine Metabolite Neg (Neg) U Marijuana (THC) Screen Neg (Neg) Ethyl Alcohol mg/dL (<10.0) mg/dl SARS-CoV-2, RNA, NAAT (NEGATIVE) 12/11/21 12/11/21 12/11/21 Range/Units 16:27 16:27 16:27 WBC (4.8-10.8) K/uL RBC (4.7-6.1) M/uL Hgb (14.0-18.0) g/dL Hct (42-52) % MCV (80-100) fL MCH (25-34) pg MCHC (32-36) g/dL RDW Std Deviation (36.4-46.3) fL RDW Coeff of Tawanna (11.5-14.5) % Plt Count (130-400) K/uL MPV (7.4-10.4) fL Immature Gran % (Auto) % Neut % (Auto) % Lymph % (Auto) % Randolph % (Auto) % Eos % (Auto) % Baso % (Auto) % Neut # (Auto) (1.4-6.5) K/uL Lymph # (Auto) (1.2-3.4) K/uL Randolph # (Auto) (0.11-0.59) K/uL Eos # (Auto) (0-0.5) K/uL Baso # (Auto) (0-0.2) K/uL Immature Gran # (Auto) (0.00-0.02) K/uL Sodium 139 (136-145) mmol/L Potassium 3.5 (3.5-5.1) mmol/L Chloride 103 (98-107) mmol/L Carbon Dioxide 28 (21-32) mmol/L Anion Gap 8 (3-11) BUN 19 (6-23) mg/dl Creatinine 1.03 (0.6-1.4) mg/dl Est Cr Clr Drug Dosing 117.6 ml/min Est GFR ( Amer) 113.2 ml/min Est GFR (Non-Af Amer) 97.7 ml/min BUN/Creatinine Ratio 18.4 (10-20) Glucose 110 H (70-99(Fasting)) mg/dl Calcium 9.8 (8.5-10.1) mg/dl Total Bilirubin 0.4 (0.2-1.0) mg/dl AST 30 (13-39) U/L ALT 28 (7-52) U/L Alkaline Phosphatase 64 (34-104) U/L Total Protein 8.1 (6.0-8.3) gm/dl Albumin 4.7 (3.4-5.0) gm/dl Globulin 3.4 (2.5-4.0) gm/dl Albumin/Globulin Ratio 1.4 (0.9-2) TSH 0.937 (0.300-4.500) uIu/ml Urine Color Urine Appearance (Clear) Urine pH (4.5-7.5) Ur Specific Lysite (1.000-1.030) Urine Protein (Negative) Urine Glucose (UA) (Negative) Urine Ketones (Negative) Urine Blood (Negative) Urine Nitrite (Negative) Urine Bilirubin (Negative) Urine Urobilinogen (Negative) Ur Leukocyte Esterase (Negative) Urine WBC (Auto) (0-5) /hpf Urine RBC (Auto) (0-4) /hpf U Hyaline Cast (Auto) (0-5) /lpf U Epithel Cells (Auto) (0-5) /lpf Urine Bacteria (Auto) (Negative) Salicylates < 3.0 L (3.0-30) mg/dl Urine Opiates Screen (Neg) Ur Methadone, Qual (Neg) Acetaminophen < 3 L (10-30) ug/ml Urine Barbiturates (Neg) Ur Phencyclidine (PCP) (Neg) U Amphetamin/Meth Scrn (Neg) MDMA (Ecstasy) Screen (Neg) U Benzodiazepines Scrn (Neg) Ur Cocaine Metabolite (Neg) U Marijuana (THC) Screen (Neg) Ethyl Alcohol mg/dL (<10.0) mg/dl SARS-CoV-2, RNA, NAAT (NEGATIVE) 12/11/21 12/11/21 Range/Units 16:27 17:00 WBC (4.8-10.8) K/uL RBC (4.7-6.1) M/uL Hgb (14.0-18.0) g/dL Hct (42-52) % MCV (80-100) fL MCH (25-34) pg MCHC (32-36) g/dL RDW Std Deviation (36.4-46.3) fL RDW Coeff of Tawanna (11.5-14.5) % Plt Count (130-400) K/uL MPV (7.4-10.4) fL Immature Gran % (Auto) % Neut % (Auto) % Lymph % (Auto) % Randolph % (Auto) % Eos % (Auto) % Baso % (Auto) % Neut # (Auto) (1.4-6.5) K/uL Lymph # (Auto) (1.2-3.4) K/uL Randolph # (Auto) (0.11-0.59) K/uL Eos # (Auto) (0-0.5) K/uL Baso # (Auto) (0-0.2) K/uL Immature Gran # (Auto) (0.00-0.02) K/uL Sodium (136-145) mmol/L Potassium (3.5-5.1) mmol/L Chloride (98-107) mmol/L Carbon Dioxide (21-32) mmol/L Anion Gap (3-11) BUN (6-23) mg/dl Creatinine (0.6-1.4) mg/dl Est Cr Clr Drug Dosing ml/min Est GFR ( Amer) ml/min Est GFR (Non-Af Amer) ml/min BUN/Creatinine Ratio (10-20) Glucose (70-99(Fasting)) mg/dl Calcium (8.5-10.1) mg/dl Total Bilirubin (0.2-1.0) mg/dl AST (13-39) U/L ALT (7-52) U/L Alkaline Phosphatase (34-104) U/L Total Protein (6.0-8.3) gm/dl Albumin (3.4-5.0) gm/dl Globulin (2.5-4.0) gm/dl Albumin/Globulin Ratio (0.9-2) TSH (0.300-4.500) uIu/ml Urine Color Urine Appearance (Clear) Urine pH (4.5-7.5) Ur Specific Lysite (1.000-1.030) Urine Protein (Negative) Urine Glucose (UA) (Negative) Urine Ketones (Negative) Urine Blood (Negative) Urine Nitrite (Negative) Urine Bilirubin (Negative) Urine Urobilinogen (Negative) Ur Leukocyte Esterase (Negative) Urine WBC (Auto) (0-5) /hpf Urine RBC (Auto) (0-4) /hpf U Hyaline Cast (Auto) (0-5) /lpf U Epithel Cells (Auto) (0-5) /lpf Urine Bacteria (Auto) (Negative) Salicylates (3.0-30) mg/dl Urine Opiates Screen (Neg) Ur Methadone, Qual (Neg) Acetaminophen (10-30) ug/ml Urine Barbiturates (Neg) Ur Phencyclidine (PCP) (Neg) U Amphetamin/Meth Scrn (Neg) MDMA (Ecstasy) Screen (Neg) U Benzodiazepines Scrn (Neg) Ur Cocaine Metabolite (Neg) U Marijuana (THC) Screen (Neg) Ethyl Alcohol mg/dL < 10.0 (<10.0) mg/dl SARS-CoV-2, RNA, NAAT NEGATIVE (NEGATIVE) Discharge Plan Visit Data Chief Complaint: Mental Health Evaluation ED Provider: Vance Jimenez Discharge Problem: Mood disorder, Hallucinations Forms Stand Alone Forms: My [facility], Suicide Prevention Resources Prescriptions Prescriptions: No Action haloperidol 5 mg Tablet 5 mg PO BID 30 Days Qty: 60 RF: 0 melatonin 3 mg Tablet 3 mg PO HS Qty: 14 RF: 0 benztropine 1 mg Tablet 1 mg PO BID 30 Days Qty: 60 RF: 0 haloperidol decanoate 100 mg/mL solution 150 mg IM Q4WK Qty: 1 RF: 0 Referrals Referrals: Liilbeth Morton MD [Primary Care Provider] -
[2021-12-11 16:29] LABS: Appearance Urine Clear (Clear); Bacteria Urine Automated Negative (Negative); Bilirubin Urine Negative (Negative); Blood Urine Negative (Negative); Color Urine Dark Yellow; Glucose Urine UA Negative (Negative); Ketones Urine Trace (Negative); Leukocyte Esterase Urine Negative (Negative); Nitrite Urine Negative (Negative); Protein Urine 2+ (Negative); RBC Urine Automated 0-4 /hpf (0-4); Specific Gravity Urine 1.032 (1.000-1.030); Urobilinogen Urine Negative (Negative)
[2021-12-11 17:12] LABS: Acetaminophen < 3 ug/ml (10-30); Salicylate < 3.0 mg/dl (3.0-30)
[2021-12-11 17:14] LABS: Albumin Globulin Ratio 1.4 (0.9-2); Albumin Level 4.7 gm/dl (3.4-5.0); BUN Creatinine Ratio 18.4 (10-20); Bilirubin,Total 0.4 mg/dl (0.2-1.0); Calcium 9.8 mg/dl (8.5-10.1); Creatinine Clr Calc Pharmacy 117.6 ml/min; Est GFR (African American) 113.2 ml/min; Est GFR (Non-African American) 97.7 ml/min; Globulin 3.4 gm/dl (2.5-4.0); Potassium 3.5 mmol/L (3.5-5.1); Total Protein 8.1 gm/dl (6.0-8.3)
[2021-12-11 18:48] LABS: Basophils # (auto) 0.05 K/uL (0-0.2); Basophils % (auto) 0.6 %; Eosinophils # (auto) 0.18 K/uL (0-0.5); Eosinophils % (auto) 2.2 %; Hematocrit (blood only) 43.1 % (42-52); Hemoglobin 14.8 g/dL (14.0-18.0); Immature Granulocytes # (auto) 0.01 K/uL (0.00-0.02); Immature Granulocytes % (auto) 0.1 %; Lymphocytes # (auto) 2.21 K/uL (1.2-3.4); Lymphocytes % (auto) 26.6 %; Mean Corpuscular Hemoglobin 30.6 pg (25-34); Mean Corpuscular Hgb Conc 34.3 g/dL (32-36); Mean Corpuscular Volume 89.2 fL (80-100); Mean Platelet Volume 10.7 fL (7.4-10.4); Neutrophils # (auto) 5.36 K/uL (1.4-6.5); Neutrophils % (auto) 64.5 %; Platelet Count 366 K/uL (130-400); RDW Coefficient of Variation 13.8 % (11.5-14.5); Red Blood Count 4.83 M/uL (4.7-6.1); White Blood Count 8.31 K/uL (4.8-10.8)
[2021-12-11 19:16] LABS: Amphetamines+Metham, Urine Neg (Neg); Barbiturates, Urine Neg (Neg); Benzodiazepine, Urine Neg (Neg); Cocaine, Urine Neg (Neg); MDMA (Ecstacy), Urine Neg (Neg); Methadone, Urine Neg (Neg); Opiate, Urine Neg (Neg); Phencyclidine, Urine Neg (Neg)
--- NOTE | 2021-12-11 19:44 | Emergency Department Note ---
ED Visit Note I assumed care at the change of shift. The patient was undergoing a bed search for an involuntary psychiatric admission. He does have a history of schizophrenia. He was demonstrating some psychosis. Patient was given 2 mg of sublingual Ativan for agitation. He did well with this medication. The patient was seen by [facility] our psychiatric services. He has been accepted to their floor. He is being transferred upstairs to this hospital's psychiatric unit. He is being admitted involuntarily. .
[2021-12-11] MEDS ORDERED: LORazepam 1 MG TAB SL STA (19:46)
[2021-12-11] MEDS ORDERED: ACETAMINOPHEN 325 MG TAB PO PRN (23:11)
[2021-12-11] MEDS ORDERED: BISMUTH SUBSALICYLATE LIQD 236 ML PO PRN (23:11)
[2021-12-11] MEDS ORDERED: hydrOXYzine HCl 25 MG TAB PO PRN ×2 (23:11)
[2021-12-11] MEDS ORDERED: SODIUM CHLORIDE 0.65% NA SOLN 45 ML (OCEAN) PRN (23:11)
[2021-12-11] MEDS ORDERED: ALUMINUM/MAGNESIUM SUSP 30 ML UDC PO PRN (23:11)
[2021-12-11] MEDS ORDERED: MAGNESIUM HYDROXIDE SUSP 30 ML UDC PO PRN (23:11)
[2021-12-11] MEDS ORDERED: ZOLPIDEM TARTRATE 10 MG TAB PO PRN (23:13)
[2021-12-11] MEDS ORDERED: LORazepam 1 MG TAB PO PRN (23:14)
[2021-12-12] MEDS: haloperidoL 5 MG TAB PO PRN (09:34)
--- NOTE | 2021-12-12 12:40 | History & Physical ---
Date of Service December 12, 2021 Impression / Recommendations Impression 31 yo male with recurrent disorganized psychosis, hx of threatening behavior, breakthrough despite Haldol dec. Continued inpatient hospitalization is medically necessary for ongoing monitoring and safety. (1) Schizophrenia: Schizophrenia type: disorganized schizophrenia Qualified Code(s): F20.1 - Disorganized schizophrenia The patient was admitted to the [facility] ([facility] mental health unit) on q15 min checks (behavioral with suicide precautions) for safety. The patient will participate in group, recreational, and milieu therapies and will be offered additional individual and family sessions as clinically appropriate. Will resume Haldol and Ativan prns, continue BID standing dose (likely non compliant), Cogentin for hx of dystonia prn. Filed for 306 conversion hearing. Inventory Assets Strengths: employed, no aggression last stay Needs: restabilization, reconsideration for more residential support Risk Factors Assessment Male: Yes Do You Have Access To A Gun?: No Mental Health Diagnoses: Yes Substance Use Disorders: No Previous Attempt: Yes Previous Psychiatric Hospitalization: Yes Protective Factors Assessment : No Employed: Yes Stable Relationships: No Supportive Family: No Psychiatric History Identifying Data LEXII TEE is a 31-year-old M who currently lives in [place], has a history of schizophrenia, and was admitted on 12/11/21 23:09 on a 302 involuntary commitment for disorganized behavior. The patient was just discharged from [facility] on 11/26/21 on a 304 outpatient commitment. Chief Complaint wandering about unit, would not engage in conversation History of Present Illness Per ED CM last night: Patient brought in by [facility] and they report the patient is a 302. 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 302 warrant petitioning statement from Burke Moore reads: Kwesi villanueva to me today, 12/11/21, I dont want to talk to you anymore I am now an atheist. I replied what changed? He replied, I had sex with a girl last night and I liked it. She convinced me Congregation is stupid and that God doesnt exist. Besides, David can go to [facility] for all I care. This is the last message Ill ever be sending to you. You think you can intimidate me with the things you say but Ill beat you into the ground in a fist fight. David told me you call me the N word under your breath anything I dont say what you want lol. You fool, if u ever say this to me in person I will beat you to and yes I am threatening you. Patient in room and appears to be responding to internal stimuli, talking when no one else is in the room and gesturing. The patient had been seen in the ED on 12/10/21 at which time I was contacted by Dr. Almeida: Patient reportedly brought to ED for randomly calling a woman and accusing her of harming his family. There is no direct threat but police brought to ED and he does seem tangential, as if responding to internal stimuli but appears well groomed and is focussed on going to work, etc. As he is not acutely agitated or suicidal, there were questionable criteria for commitment. Patient well known to me from care on 3S, last hospital stay d/c on 11/26/21 on 5 mg Haldol BID and plan for Haldol dec around 12/13/21. History of poor PO med compliance and appears breaking through prior to due for shot at [place]. As in the ED, Dr. Almeida agreed to administer his Haldol dec and attempt to co ntact friend David (thought patient currently declining to involve). I left a message for [place] [employer] that he received shot in ED and to call unit if need additional info. The patient is unable to described his behavior in the last 24-48 hours. He is responding to internal stimuli with hand gestures in the air or putting his head down on the table as if distressed by internal stimuli. He received Ativan prn in the ED. Had to be redirected by staff as walked out of shower room partially clothed, etc. Past Psychiatric History Current Psychiatric Diagnosis: Schizophrenia Do You Have Access To A Gun?: No Past Medication Trials: past med trials of Abilify, Seroquel, Zyprexa, thorazine, but not Latuda or Invega; clozaril (he refused to continue last stay), Haldol, Ambien, Cogentin Additional Notes: Current Psychiatric Diagnosis: schizophrenia Outpatient Services: was a patient at [facility] Dr. Aguilar; was set up with [place] last stay Previous Psych Admissions: [facility], was residing in [facility] at one point. [facility] 05/01, 06/02 with some sexually inappropriate comments to female staff; 11/05 [facility]. Do You Have Access To A Gun?: No Describe Attempts in the Past: 1 attempt OD Nyquil ?2017. Allergies Allergy/AdvReac Type Severity Reaction Status Date / Time meloxicam AdvReac blurred Verified 12/11/21 07:05 vision naproxen AdvReac blurred Verified 12/11/21 07:05 vision Home Medications Medication Instructions Recorded Confirmed Type benztropine 1 mg tablet 1 mg PO BID 30 Days #60 tab 11/26/21 Rx haloperidol 5 mg tablet 5 mg PO BID 30 Days #60 tab 11/26/21 Rx haloperidol decanoate 100 mg/mL 150 mg IM Q4WK #1 vial 11/26/21 12/11/21 Rx intramuscular solution melatonin 3 mg tablet 3 mg PO HS #14 tab 11/26/21 Rx Family History Family History of: Doesn't Know Alcohol History Hx of Alcohol Use Over the Past 12 Months: No AUDIT Total Score: 0 Smoking Use tobacco type: cigarettes Smoking Status: Never smoker Substance History Hx of Prescription Med Misuse Over the Past 12 Months: No Hx of Over the Counter Med Misuse Over the Past 12 Months: No Hx of Inhalent Misuse Over the Past 12 Months: No Hx of Organic Substance Use Over the Past 12 Months: No Hx of Illegal Substances/Street Drug Use Over Past 12 Months: No Problems as a Result of Past Substance Use: None Identified Personal History Born In: [place] Highest Grade Completed: Some College Beliefs That Will Affect Care: None Hx Legal Problems: Yes (Per records, has a history of multiple arrests including felony charges in 2014 and 2015) Hx Traumatic Life Events: Yes Patient History Medical History Alcohol use disorder . 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 Followed by [facility] by Dr. Aguilar. 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: No Beliefs That Will Affect Care: None marital status: Single Current Living Situation: Other Current Living Situation Comment: Apartment , see ED admission report current occupational status: employed Feels Safe at Home: Yes Childhood Exposure to Second-Hand Smoke: No Dental Care, Regularly: No Physical Activity Frequency: Does not Exercise Seatbelt Use: always Sunscreen Use: No Assistive Devices: None and Glasses Review of Systems Review of Systems: All systems reviewed & are unremarkable except as noted in HPI & below Physical Exam Psychiatric: Orientation: alert, oriented to person, oriented to place and + guarded; + not oriented to time Eye Contact: + poor eye contact restless Speech: + abnormal rate/rhythm/volume of speech (poverty of speech) Affect: + flat affect Mood: + anxious mood Thought Process: + thought blocking and + looseness of associations Thought Content: + paranoid and + delusions Suicidal Thoughts: denies suicidal thoughts would not answer Hallucinations: + auditory hallucinations; no visual hallucinations Cognition: + attention not intact Insight: + severely impaired insight Judgement: + severely impaired judgement Vital Signs (Past 24 Hours): Last Vital Signs Temp 37.3 C 12/12/21 00:31 Pulse 112 H 12/12/21 00:31 Resp 18 12/12/21 00:31 BP 135/93 12/12/21 00:31 Pulse Ox 98 12/12/21 00:31 Exam Statement: A physical exam was performed in the ED by Dr. Almeida for the purposes of medical clearance. I accept that physical as correct and adequate for the purposes of the inpatient physical exam. Results & Data (U) Laboratory Results Laboratory Results - last 24 hr 12/11/21 12/11/21 12/11/21 15:56 15:56 16:27 WBC 8.31 RBC 4.83 Hgb 14.8 Hct 43.1 MCV 89.2 MCH 30.6 MCHC 34.3 RDW Std Deviation 45.0 RDW Coeff of Tawanna 13.8 Plt Count 366 MPV 10.7 H Immature Gran % (Auto) 0.1 Neut % (Auto) 64.5 Lymph % (Auto) 26.6 [place] % (Auto) 6.0 Eos % (Auto) 2.2 Baso % (Auto) 0.6 Neut # (Auto) 5.36 Lymph # (Auto) 2.21 [place] # (Auto) 0.50 Eos # (Auto) 0.18 Baso # (Auto) 0.05 Immature Gran # (Auto) 0.01 Sodium Potassium Chloride Carbon Dioxide Anion Gap BUN Creatinine Est Cr Clr Drug Dosing Est GFR ( Amer) Est GFR (Non-Af Amer) BUN/Creatinine Ratio Glucose Calcium Total Bilirubin AST ALT Alkaline Phosphatase Total Protein Albumin Globulin Albumin/Globulin Ratio TSH Urine Color Dark Yellow Urine Appearance Clear Urine pH 6.0 Ur Specific Hills 1.032 H Urine Protein 2+ H Urine Glucose (UA) Negative Urine Ketones Trace H Urine Blood Negative Urine Nitrite Negative Urine Bilirubin Negative Urine Urobilinogen Negative Ur Leukocyte Esterase Negative Urine WBC (Auto) 1-5 Urine RBC (Auto) 0-4 U Hyaline Cast (Auto) 10-30 H U Epithel Cells (Auto) 10-20 H Urine Bacteria (Auto) Negative Salicylates Urine Opiates Screen Neg Ur Methadone, Qual Neg Acetaminophen Urine Barbiturates Neg Ur Phencyclidine (PCP) Neg U Amphetamin/Meth Scrn Neg MDMA (Ecstasy) Screen Neg U Benzodiazepines Scrn Neg Ur Cocaine Metabolite Neg U Marijuana (THC) Screen Neg Ethyl Alcohol mg/dL SARS-CoV-2, RNA, NAAT 12/11/21 12/11/21 12/11/21 16:27 16:27 16:27 WBC RBC Hgb Hct MCV MCH MCHC RDW Std Deviation RDW Coeff of Tawanna Plt Count MPV Immature Gran % (Auto) Neut % (Auto) Lymph % (Auto) [place] % (Auto) Eos % (Auto) Baso % (Auto) Neut # (Auto) Lymph # (Auto) [place] # (Auto) Eos # (Auto) Baso # (Auto) Immature Gran # (Auto) Sodium 139 Potassium 3.5 Chloride 103 Carbon Dioxide 28 Anion Gap 8 BUN 19 Creatinine 1.03 Est Cr Clr Drug Dosing 117.6 Est GFR ( Amer) 113.2 Est GFR (Non-Af Amer) 97.7 BUN/Creatinine Ratio 18.4 Glucose 110 H Calcium 9.8 Total Bilirubin 0.4 AST 30 ALT 28 Alkaline Phosphatase 64 Total Protein 8.1 Albumin 4.7 Globulin 3.4 Albumin/Globulin Ratio 1.4 TSH 0.937 Urine Color Urine Appearance Urine pH Ur Specific Hills Urine Protein Urine Glucose (UA) Urine Ketones Urine Blood Urine Nitrite Urine Bilirubin Urine Urobilinogen Ur Leukocyte Esterase Urine WBC (Auto) Urine RBC (Auto) U Hyaline Cast (Auto) U Epithel Cells (Auto) Urine Bacteria (Auto) Salicylates < 3.0 L Urine Opiates Screen Ur Methadone, Qual Acetaminophen < 3 L Urine Barbiturates Ur Phencyclidine (PCP) U Amphetamin/Meth Scrn MDMA (Ecstasy) Screen U Benzodiazepines Scrn Ur Cocaine Metabolite U Marijuana (THC) Screen Ethyl Alcohol mg/dL SARS-CoV-2, RNA, NAAT 12/11/21 12/11/21 16:27 17:00 WBC RBC Hgb Hct MCV MCH MCHC RDW Std Deviation RDW Coeff of Tawanna Plt Count MPV Immature Gran % (Auto) Neut % (Auto) Lymph % (Auto) [place] % (Auto) Eos % (Auto) Baso % (Auto) Neut # (Auto) Lymph # (Auto) [place] # (Auto) Eos # (Auto) Baso # (Auto) Immature Gran # (Auto) Sodium Potassium Chloride Carbon Dioxide Anion Gap BUN Creatinine Est Cr Clr Drug Dosing Est GFR ( Amer) Est GFR (Non-Af Amer) BUN/Creatinine Ratio Glucose Calcium Total Bilirubin AST ALT Alkaline Phosphatase Total Protein Albumin Globulin Albumin/Globulin Ratio TSH Urine Color Urine Appearance Urine pH Ur Specific Hills Urine Protein Urine Glucose (UA) Urine Ketones Urine Blood Urine Nitrite Urine Bilirubin Urine Urobilinogen Ur Leukocyte Esterase Urine WBC (Auto) Urine RBC (Auto) U Hyaline Cast (Auto) U Epithel Cells (Auto) Urine Bacteria (Auto) Salicylates Urine Opiates Screen Ur Methadone, Qual Acetaminophen Urine Barbiturates Ur Phencyclidine (PCP) U Amphetamin/Meth Scrn MDMA (Ecstasy) Screen U Benzodiazepines Scrn Ur Cocaine Metabolite U Marijuana (THC) Screen Ethyl Alcohol mg/dL < 10.0 SARS-CoV-2, RNA, NAAT NEGATIVE Current Inpatient Medications Current Inpatient Medications: Current Inpatient Medications Acetaminophen (Acetaminophen 325 Mg Tab) 650 mg PO Q4H PRN PRN Reason: Headache or Minor Fever Stop: 01/10/22 23:10 Al Hydrox/Mg Hydrox/Simethicone (Aluminum/Magnesium Susp 30 Ml Udc) 30 ml PO Q4H PRN PRN Reason: GI Upset Stop: 01/10/22 23:10 Benztropine Mesylate (Benztropine Mesylate 1 Mg Tab) 1 mg PO Q6 PRN PRN Reason: dystonia Stop: 01/11/22 10:00 Bismuth Subsalicylate (Bismuth Subsalicylate Liqd 236 Ml) 15 ml PO PRN PRN PRN Reason: Loose Stool Stop: 01/10/22 23:10 Haloperidol (Haloperidol 5 Mg Tab) 5 mg PO Q6 PRN PRN Reason: Anxiety/Agitation Stop: 01/11/22 09:19 Last Admin: 12/12/21 09:34 Dose: 5 mg Documented by: Haloperidol (Haloperidol 5 Mg Tab) 5 mg PO BID LINO Stop: 01/11/22 20:59 Hydroxyzine HCl (Hydroxyzine Hcl 25 Mg Tab) 50 mg PO HSZ PRN PRN Reason: Insomnia Stop: 01/10/22 23:10 Hydroxyzine HCl (Hydroxyzine Hcl 25 Mg Tab) 25 mg PO Q4H PRN PRN Reason: Anxiety Stop: 01/10/22 23:10 Lorazepam (Lorazepam 1 Mg Tab) 1 mg PO Q6 PRN PRN Reason: Anxiety/Agitation Stop: 01/10/22 23:13 Last Admin: 12/12/21 09:33 Dose: 1 mg Documented by: Magnesium Hydroxide (Magnesium Hydroxide Susp 30 Ml Udc) 30 ml PO DAILY PRN PRN Reason: Constipation Stop: 01/10/22 23:10 Sodium Chloride (Sodium Chloride 0.65% Na Soln 45 Ml ([place])) 1 - 2 sprays NA PRN PRN PRN Reason: Nasal Dryness/Congestion Stop: 01/10/22 23:10 Zolpidem Tartrate (Zolpidem Tartrate 10 Mg Tab) 10 mg PO HS PRN PRN Reason: Sleep Stop: 01/10/22 23:12 Last Admin: 12/12/21 01:16 Dose: 10 mg Documented by:
[2021-12-12] MEDS: haloperidoL 5 MG TAB PO SCH (21:12)
[2021-12-13] MEDS: haloperidoL 5 MG TAB PO SCH ×2 (08:51→20:24)
--- NOTE | 2021-12-13 11:15 | Psychiatric Progress Note ---
Date of Service December 13, 2021 Impression / Recommendations Impression 31 yo male with recurrent disorganized psychosis, hx of threatening behavior, breakthrough despite Haldol dec. Continued inpatient hospitalization is medically necessary for ongoing monitoring and safety. 12/13/21: ongoing psychosis (1) Schizophrenia: 12/13/21: 304 conversion to inpatient granted at 306 hearing. Continue current meds and treatment plan. He is currently refusing a trial of Latuda. 12/12/21: The patient was admitted to the [facility] ([facility] mental health unit) on q15 min checks (behavioral with suicide precautions) for safety. The patient will participate in group, recreational, and milieu therapies and will be offered additional individual and family sessions as clinically appropriate. Will resume Haldol and Ativan prns, continue BID standing dose (likely non compliant), Cogentin for hx of dystonia prn. Filed for 306 conversion hearing. Inventory Assets Strengths: employed, no aggression last stay Needs: restabilization, reconsideration for more residential support Risk Factors Assessment Male: Yes Do You Have Access To A Gun?: No Mental Health Diagnoses: Yes Substance Use Disorders: No Previous Attempt: Yes Previous Psychiatric Hospitalization: Yes Protective Factors Assessment : No Employed: Yes Stable Relationships: No Supportive Family: No Interval History Identifying Information LEXII TEE is a 31-year-old M who currently lives in [place], has a history of schizophrenia, and was admitted on 12/11/21 23:09 on a 302 involuntary commitment for disorganized behavior. The patient was just discharged from [facility] on 11/26/21 on a 304 outpatient commitment. Chief Complaint "I want it on the record that I was just protecting myself". Review of Systems Sleep Information Total Hours of Sleep: 6.0 Sleep Comments: pt ambulating hallway most of the night, difficult to redirect, pt on q15 min checks Meal Information Percent Meal Consumed - Breakfast: 100 Percent Meal Consumed - Lunch: 100 Percent Meal Consumed - Dinner: 100 Subjective Subjective Patient was seen & assessed and interval progress reviewed with treatment team. Continues to wander about unit responding to internal stimuli. Was less restless last pm. Denies dystonia. Baseline stutter. Continues to state his life was in danger due to his atheism and race. Walked out of shower room unclothed (patient was unaware) in front of staff yesterday. Physical Exam Psychiatric Orientation: alert, oriented to person, oriented to place and + guarded; + not oriented to time Eye Contact: + poor eye contact Speech: + abnormal rate/rhythm/volume of speech (poverty of speech) Affect: + flat affect Mood: + anxious mood Thought Process: + thought blocking and + looseness of associations Thought Content: + paranoid and + delusions Suicidal Thoughts: denies suicidal thoughts Hallucinations: + auditory hallucinations; no visual hallucinations Cognition: + attention not intact Insight: + severely impaired insight Judgement: + severely impaired judgement Vital Signs (Past 24 Hours) Last Vital Signs Temp 36.6 C 12/13/21 06:42 Pulse 90 12/13/21 06:42 Resp 16 12/13/21 06:42 BP 126/88 12/13/21 06:42 Pulse Ox 98 12/12/21 00:31 Results & Data ([facility]) Laboratory Results note his chol and fasting glucose from last stay 11/11/21. Current Inpatient Medications Current Inpatient Medications: Current Inpatient Medications Acetaminophen (Acetaminophen 325 Mg Tab) 650 mg PO Q4H PRN PRN Reason: Headache or Minor Fever Stop: 01/10/22 23:10 Al Hydrox/Mg Hydrox/Simethicone (Aluminum/Magnesium Susp 30 Ml Udc) 30 ml PO Q4H PRN PRN Reason: GI Upset Stop: 01/10/22 23:10 Benztropine Mesylate (Benztropine Mesylate 1 Mg Tab) 1 mg PO Q6 PRN PRN Reason: dystonia Stop: 01/11/22 10:00 Bismuth Subsalicylate (Bismuth Subsalicylate Liqd 236 Ml) 15 ml PO PRN PRN PRN Reason: Loose Stool Stop: 01/10/22 23:10 Haloperidol (Haloperidol 5 Mg Tab) 5 mg PO Q6 PRN PRN Reason: Anxiety/Agitation Stop: 01/11/22 09:19 Last Admin: 12/12/21 09:34 Dose: 5 mg Documented by: Haloperidol (Haloperidol 5 Mg Tab) 5 mg PO BID LINO Stop: 01/11/22 20:59 Last Admin: 12/13/21 08:51 Dose: 5 mg Documented by: Hydroxyzine HCl (Hydroxyzine Hcl 25 Mg Tab) 50 mg PO HSZ PRN PRN Reason: Insomnia Stop: 01/10/22 23:10 Hydroxyzine HCl (Hydroxyzine Hcl 25 Mg Tab) 25 mg PO Q4H PRN PRN Reason: Anxiety Stop: 01/10/22 23:10 Lorazepam (Lorazepam 1 Mg Tab) 1 mg PO Q6 PRN PRN Reason: Anxiety/Agitation Stop: 01/10/22 23:13 Last Admin: 12/12/21 09:33 Dose: 1 mg Documented by: Magnesium Hydroxide (Magnesium Hydroxide Susp 30 Ml Udc) 30 ml PO DAILY PRN PRN Reason: Constipation Stop: 01/10/22 23:10 Sodium Chloride (Sodium Chloride 0.65% Na Soln 45 Ml ([place])) 1 - 2 sprays NA PRN PRN PRN Reason: Nasal Dryness/Congestion Stop: 01/10/22 23:10 Zolpidem Tartrate (Zolpidem Tartrate 10 Mg Tab) 10 mg PO HS PRN PRN Reason: Sleep Stop: 01/10/22 23:12 Last Admin: 12/12/21 01:16 Dose: 10 mg Documented by: (1) Schizophrenia Schizophrenia type: disorganized schizophrenia Qualified Code(s): F20.1 - Disorganized schizophrenia
[2021-12-14] MEDS: haloperidoL 5 MG TAB PO SCH ×2 (08:50→20:59)
[2021-12-14] MEDS: BENZTROPINE MESYLATE 1 MG TAB PO PRN (11:58)
[2021-12-14] MEDS: haloperidoL 5 MG TAB PO PRN ×2 (11:58→19:16)
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
[2021-12-15] MEDS ORDERED: PROPRANOLOL HCL 10 MG TAB PO PRN (08:41)
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
[2021-12-15] MEDS: haloperidoL 5 MG TAB PO SCH ×2 (09:04→21:38)
[2021-12-16] MEDS: haloperidoL 5 MG TAB PO SCH ×2 (08:10→21:41)
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
[2021-12-17] MEDS: haloperidoL 5 MG TAB PO SCH (08:05)
[2021-12-17 08:19] LABS: Basophils # (auto) 0.07 K/uL (0-0.2); Basophils % (auto) 1.1 %; Eosinophils # (auto) 0.38 K/uL (0-0.5); Eosinophils % (auto) 6.2 %; Hematocrit (blood only) 39.8 % (42-52); Hemoglobin 13.7 g/dL (14.0-18.0); Immature Granulocytes # (auto) 0.01 K/uL (0.00-0.02); Immature Granulocytes % (auto) 0.2 %; Lymphocytes # (auto) 2.67 K/uL (1.2-3.4); Lymphocytes % (auto) 43.8 %; Mean Corpuscular Hemoglobin 30.4 pg (25-34); Mean Corpuscular Hgb Conc 34.4 g/dL (32-36); Mean Corpuscular Volume 88.2 fL (80-100); Monocytes # (auto) 0.51 K/uL (0.11-0.59); Monocytes % (auto) 8.4 %; Neutrophils # (auto) 2.45 K/uL (1.4-6.5); Neutrophils % (auto) 40.3 %; Platelet Count 375 K/uL (130-400); RDW Coefficient of Variation 13.9 % (11.5-14.5); RDW Standard Deviation 44.9 fL (36.4-46.3); Red Blood Count 4.51 M/uL (4.7-6.1); White Blood Count 6.09 K/uL (4.8-10.8)
--- NOTE | 2021-12-17 08:39 | Psychiatric Progress Note ---
Date of Service December 17, 2021 Impression / Recommendations Impression 31 yo man with history of schizophrenia with recurrent disorganized psychosis, hx of threatening behavior, breakthrough despite recent Haldol decanoate injections and recent inpatient hospitalization. Diagnostically consistent with acute exacerbation of schizophrenia likely in context of non-adherence with po haldol after last discharge and breakthrough symptoms even with haldol decanoate injections of 150mg on 12/10/21, 50mg on 11/20/21 and 100mg on 11/14/21. Continued inpatient hospitalization is medically necessary for ongoing monitoring and safety. 12/17/21: Given long history of treatment refractory schizophrenia and longest period of stability with clozapine will switch back to clozapine. Reviewed side effects including but not limited to metabolic and movement (TD) and hypotension and cardiac (myocarditis) and importance of routine blood monitoring/neutropenia and he consents to this. Adding metformin given elevated HbA1c and potential for significant metabolic side effects with clozapine. EKG reviewed and QTc stable for initiation of clozapine and normal sinus rhythm. ANC reviewed and >1500/uL. Discontinue po haldol. (1) Schizophrenia: (2) Prediabetes: adding metformin (3) Hyperlipidemia: Will need PCP follow-up after discharge for monitoring overtime-elevated total and LDL cholesterol 12/17/21: Stop haldol po. Start clozapine 25mg qhs. Start metformin 500mg qd. Start colace 250mg qd and miralax prn. 12/16/21: Continue with current medications for now. CBC labwork and repeat EKG for QTc in anticipation of potentially starting clozapine. 12/15/21: Continue with halol 5mg BID po and prn doses. Added propranolol prn for akathisia. Continue with cogentin and ativan prn. 12/14/21: Continue with haldol 5mg BID and haldol 5mg q6h prn as well as cogentin and ativan prn. Clipped his fingernails. 12/13/21: 304 conversion to inpatient granted at 306 hearing. Continue current meds and treatment plan. He is currently refusing a trial of Latuda. 12/12/21: The patient was admitted to the [facility] on q15 min checks (behavioral with suicide precautions) for safety. The patient will participate in group, recreational, and milieu therapies and will be offered additional individual and family sessions as clinically appropriate. Will resume Haldol and Ativan prns, continue BID standing dose (likely non compliant), Cogentin for hx of dystonia prn. Filed for 306 conversion hearing. Inventory Assets Strengths: employed, no aggression last stay Needs: restabilization, reconsideration for more residential support Risk Factors Assessment Male: Yes Do You Have Access To A Gun?: No Mental Health Diagnoses: Yes Substance Use Disorders: No Previous Attempt: Yes Previous Psychiatric Hospitalization: Yes Protective Factors Assessment : No Employed: Yes Stable Relationships: No Supportive Family: No Interval History Identifying Information LEXII TEE is a 31-year-old M who currently lives in [place], has a history of schizophrenia, and was admitted on 12/11/21 23:09 on a 302 involuntary commitment for disorganized behavior. The patient was just discharged from [facility] on 11/26/21 on a 304 outpatient commitment. Chief Complaint "I'm fine thanks". Review of Systems Sleep Information Total Hours of Sleep: 4.5 Sleep Comments: Enuretic around 0200. Meal Information Percent Meal Consumed - Breakfast: 100 Percent Meal Consumed - Lunch: 100 Percent Meal Consumed - Dinner: 100 Subjective Subjective Patient was seen & assessed and interval progress reviewed with treatment team nursing and social work. Last evening loudly singing and chanting and rocking on couch in the mosher appearing to respond to internal stimuli. Today pacing in the hallway continues to appear to be responding to internal stimuli. Collateral from his watch case polisher concerning for significant worsening of psychosis prior to admission including quitting his job at [employer] due to his belief he had been accepted to graduate school (within one week and outside time frame for graduate school admissions). He was also looking into new apartments and crisis interventional team noted any episode of behavioral disturbance prior to admission at the apartment. Today Kwesi is more guarded but tolerates a brief discussion. States he did have urinary incontinence last night but rather needed to change the sheets due to personal sexual health reasons that he did not wish to disclose at the time. Denies current dizziness. Reviewed his labwork results. he recalls having been "prediabetic" in the past. Reviewed cholesterol results and discussed healthy nutrition choices including reducing soda intake which he is agreeable to trying. He remains agreeable to taking clozapine and notes it will actually be beneficial for his sleep since "sedation is one of the side effects". he recalled the need for routine blood work and we discussed that it will be done weekly which he agrees to. Reviewed EKG results. Physical Exam Psychiatric Orientation: alert and oriented x 3 Eye Contact: + fair eye contact Speech: + abnormal rate/rhythm/volume of speech (stutter ) Affect: + flat affect Mood: + anxious mood Thought Process: + thought blocking, + looseness of associations and + perseveration Thought Content: + paranoid and + delusions Suicidal Thoughts: denies suicidal thoughts Homicidal Thoughts: denies homicidal thoughts (reports recent aggressive incident but denies any HI, denies aggression) Hallucinations: + auditory hallucinations; no visual hallucinations Cognition: remote memory grossly intact and language grossly intact; + recent memory not intact and + attention not intact Insight: + severely impaired insight Judgement: + severely impaired judgement Vital Signs (Past 24 Hours) Last Vital Signs Temp 36.6 C 12/17/21 06:30 Pulse 78 12/17/21 06:33 Resp 16 12/17/21 06:30 BP 110/72 12/17/21 06:33 Pulse Ox 98 12/15/21 06:46 Results & Data ([facility]) Laboratory Results Laboratory Results - last 24 hr 12/17/21 12/17/21 12/17/21 07:24 07:24 07:24 WBC 6.09 RBC 4.51 L Hgb 13.7 L Hct 39.8 L MCV 88.2 MCH 30.4 MCHC 34.4 RDW Std Deviation 44.9 RDW Coeff of Tawanna 13.9 Plt Count 375 MPV 10.0 Immature Gran % (Auto) 0.2 Neut % (Auto) 40.3 Lymph % (Auto) 43.8 Morrill % (Auto) 8.4 Eos % (Auto) 6.2 Baso % (Auto) 1.1 Neut # (Auto) 2.45 Lymph # (Auto) 2.67 Morrill # (Auto) 0.51 Eos # (Auto) 0.38 Baso # (Auto) 0.07 Immature Gran # (Auto) 0.01 Fasting Glucose Pending Estimat Average Glucose Pending Hemoglobin A1c Pending Triglycerides Pending Cholesterol Pending LDL Cholesterol, Calc Pending VLDL Cholesterol, Calc Pending HDL Cholesterol Pending Cholesterol/HDL Ratio Pending Current Inpatient Medications Current Inpatient Medications: Current Inpatient Medications Acetaminophen (Acetaminophen 325 Mg Tab) 650 mg PO Q4H PRN PRN Reason: Headache or Minor Fever Stop: 01/10/22 23:10 Al Hydrox/Mg Hydrox/Simethicone (Aluminum/Magnesium Susp 30 Ml Udc) 30 ml PO Q4H PRN PRN Reason: GI Upset Stop: 01/10/22 23:10 Benztropine Mesylate (Benztropine Mesylate 1 Mg Tab) 1 mg PO Q6 PRN PRN Reason: dystonia Stop: 01/11/22 10:00 Last Admin: 12/14/21 11:58 Dose: 1 mg Documented by: Bismuth Subsalicylate (Bismuth Subsalicylate Liqd 236 Ml) 15 ml PO PRN PRN PRN Reason: Loose Stool Stop: 01/10/22 23:10 Haloperidol (Haloperidol 5 Mg Tab) 5 mg PO Q6 PRN PRN Reason: Anxiety/Agitation Stop: 01/11/22 09:19 Last Admin: 12/14/21 19:16 Dose: 5 mg Documented by: Haloperidol (Haloperidol 5 Mg Tab) 5 mg PO BID LINO Stop: 01/11/22 20:59 Last Admin: 12/17/21 08:05 Dose: 5 mg Documented by: Hydroxyzine HCl (Hydroxyzine Hcl 25 Mg Tab) 50 mg PO HSZ PRN PRN Reason: Insomnia Stop: 01/10/22 23:10 Hydroxyzine HCl (Hydroxyzine Hcl 25 Mg Tab) 25 mg PO Q4H PRN PRN Reason: Anxiety Stop: 01/10/22 23:10 Lorazepam (Lorazepam 1 Mg Tab) 1 mg PO Q6 PRN PRN Reason: Anxiety/Agitation Stop: 01/10/22 23:13 Last Admin: 12/12/21 09:33 Dose: 1 mg Documented by: Magnesium Hydroxide (Magnesium Hydroxide Susp 30 Ml Udc) 30 ml PO DAILY PRN PRN Reason: Constipation Stop: 01/10/22 23:10 Propranolol HCl (Propranolol Hcl 10 Mg Tab) 10 mg PO BID PRN PRN Reason: akathisia Stop: 01/14/22 08:59 Last Admin: 12/15/21 09:04 Dose: 10 mg Documented by: Sodium Chloride (Sodium Chloride 0.65% Na Soln 45 Ml ([place])) 1 - 2 sprays NA PRN PRN PRN Reason: Nasal Dryness/Congestion Stop: 01/10/22 23:10 Zolpidem Tartrate (Zolpidem Tartrate 10 Mg Tab) 10 mg PO HS PRN PRN Reason: Sleep Stop: 01/10/22 23:12 Last Admin: 12/12/21 01:16 Dose: 10 mg Documented by: Mental Health & Subst Abuse Tx Psychiatrist Name of Psychiatrist: Katie Green Psychiatrist's Psychiatric Appointment Comment: [address] [facility] Therapist Name of Therapist: [facility] Therapist's Therapy Appointment Comment: [address] [facility] [place] [address] Fleet Maintenance Foreman Name of Fleet Maintenance Foreman: [facility] Phone Number for Fleet Maintenance Foreman: [phone] Post Discharge Appointments Primary Care Physician Name Of Family Doctor: DEVYN Blair Primary Care Provider Appointment Comment: [address] [facility] Contact Information Discharge Discharge Address: [address] [place] [address], [facility], [place] [address] (1) Schizophrenia Schizophrenia type: disorganized schizophrenia Qualified Code(s): F20.1 - Disorganized schizophrenia
[2021-12-17 08:46] LABS: Chol HDL Ratio 3.9 (0-5)
[2021-12-17 09:25] LABS: Estimated Average Glucose 120 mg/dl; Hemoglobin A1C 5.8 % (4.5-5.6)
--- NOTE | 2021-12-17 14:09 | Electrocardiogram Report ---
Test Reason : Blood Pressure : / mmHG Vent. Rate : 079 BPM Atrial Rate : 079 BPM P-R Int : 142 ms QRS Dur : 082 ms QT Int : 362 ms P-R-T Axes : 000 142 002 degrees QTc Int : 415 ms Normal sinus rhythm Right axis deviation Anterior ST elevation, most consistent with repolarization variant Abnormal ECG When compared with ECG of 17-DEC-2021 12:23, No significant change was found Confirmed by Festus Cisneros ([id number]) on 12/17/2021 2:09:46 PM Referred By: REFERRED SELF Confirmed By:Festus Cisneros
[2021-12-17] MEDS ORDERED: POLYETHYLENE (MIRALAX) 17 GM PACK PO PRN (15:46)
[2021-12-17] MEDS: cloZAPine 25 MG TAB PO SCH (21:52)
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
[2021-12-18] MEDS: DOCUSATE SODIUM 100 MG CAP PO SCH (09:39)
[2021-12-18] MEDS: metFORMIN HCL ER 500 MG TABCR PO SCH (17:10)
[2021-12-18] MEDS: cloZAPine 25 MG TAB PO SCH (21:04)
[2021-12-19] MEDS: DOCUSATE SODIUM 100 MG CAP PO SCH (08:26)
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
[2021-12-19] MEDS: metFORMIN HCL ER 500 MG TABCR PO SCH (17:17)
[2021-12-19] MEDS: cloZAPine 25 MG TAB PO SCH (20:31)
[2021-12-19] MEDS ORDERED: hydrOXYzine HCl 25 MG TAB PO PRN (21:01)
[2021-12-19] MEDS: MELATONIN 3 MG TAB PO PRN (21:12)
[2021-12-20] MEDS: DOCUSATE SODIUM 100 MG CAP PO SCH (08:42)
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
[2021-12-20] MEDS: metFORMIN HCL ER 500 MG TABCR PO SCH (17:07)
[2021-12-20] MEDS: cloZAPine 25 MG TAB PO SCH (22:05)
[2021-12-21] MEDS: BENZTROPINE MESYLATE 1 MG TAB PO PRN (01:25)
[2021-12-21] MEDS: DOCUSATE SODIUM 100 MG CAP PO SCH (08:33)
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
[2021-12-21] MEDS: metFORMIN HCL ER 500 MG TABCR PO SCH (17:17)
[2021-12-21] MEDS: cloZAPine 25 MG TAB PO SCH (21:05)
[2021-12-21] MEDS: MELATONIN 3 MG TAB PO PRN (21:08)
[2021-12-22] MEDS: DOCUSATE SODIUM 100 MG CAP PO SCH (08:39)
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
[2021-12-22] MEDS: haloperidoL 5 MG TAB PO PRN (15:42)
[2021-12-22] MEDS: metFORMIN HCL ER 500 MG TABCR PO SCH (17:51)
[2021-12-22] MEDS: hydrOXYzine HCl 25 MG TAB PO SCH (21:40)
[2021-12-22] MEDS: cloZAPine 25 MG TAB PO SCH (21:40)
[2021-12-22] MEDS: MELATONIN 3 MG TAB PO SCH (21:40)
[2021-12-23] MEDS: DOCUSATE SODIUM 100 MG CAP PO SCH (08:26)
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
[2021-12-23] MEDS: metFORMIN HCL ER 500 MG TABCR PO SCH (17:06)
[2021-12-23] MEDS: MELATONIN 3 MG TAB PO SCH (20:20)
[2021-12-23] MEDS: hydrOXYzine HCl 25 MG TAB PO SCH (20:20)
[2021-12-23] MEDS: cloZAPine 25 MG TAB PO SCH (20:20)
[2021-12-24] MEDS: DOCUSATE SODIUM 100 MG CAP PO SCH (08:14)
[2021-12-24 09:17] LABS: Basophils # (auto) 0.03 K/uL (0-0.2); Basophils % (auto) 0.5 %; Eosinophils # (auto) 0.29 K/uL (0-0.5); Eosinophils % (auto) 4.8 %; Hematocrit (blood only) 41.3 % (42-52); Immature Granulocytes # (auto) 0.02 K/uL (0.00-0.02); Immature Granulocytes % (auto) 0.3 %; Lymphocytes % (auto) 40.1 %; Mean Corpuscular Hemoglobin 30.2 pg (25-34); Mean Corpuscular Hgb Conc 33.9 g/dL (32-36); Mean Platelet Volume 10.3 fL (7.4-10.4); Monocytes # (auto) 0.35 K/uL (0.11-0.59); Monocytes % (auto) 5.8 %; Neutrophils % (auto) 48.5 %; Platelet Count 350 K/uL (130-400); RDW Coefficient of Variation 14.5 % (11.5-14.5); RDW Standard Deviation 47.2 fL (36.4-46.3); Red Blood Count 4.64 M/uL (4.7-6.1); White Blood Count 5.99 K/uL (4.8-10.8)
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
[2021-12-24] MEDS: metFORMIN HCL ER 500 MG TABCR PO SCH (17:24)
[2021-12-24] MEDS: cloZAPine 25 MG TAB PO SCH (20:29)
[2021-12-24] MEDS: hydrOXYzine HCl 25 MG TAB PO SCH (20:30)
[2021-12-24] MEDS: MELATONIN 3 MG TAB PO SCH (20:32)
[2021-12-25] MEDS: haloperidoL 5 MG TAB PO SCH (08:27)
[2021-12-25] MEDS: DOCUSATE SODIUM 100 MG CAP PO SCH (08:27)
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
[2021-12-25] MEDS: metFORMIN HCL ER 500 MG TABCR PO SCH (17:14)
[2021-12-25] MEDS: PRAZOSIN HCL 1 MG CAP PO SCH (20:19)
[2021-12-25] MEDS: MELATONIN 3 MG TAB PO SCH (20:21)
[2021-12-25] MEDS ORDERED: cloZAPine 100 MG TAB PO SCH (22:00)
[2021-12-26] MEDS: DOCUSATE SODIUM 100 MG CAP PO SCH (08:40)
[2021-12-26] MEDS: haloperidoL 5 MG TAB PO SCH (08:41)
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
[2021-12-26] MEDS: metFORMIN HCL ER 500 MG TABCR PO SCH (17:31)
[2021-12-26] MEDS: cloZAPine 25 MG TAB PO SCH (21:55)
[2021-12-26] MEDS: MELATONIN 3 MG TAB PO SCH (21:55)
[2021-12-26] MEDS: PRAZOSIN HCL 1 MG CAP PO SCH (21:55)
[2021-12-27] MEDS: DOCUSATE SODIUM 100 MG CAP PO SCH (08:29)
[2021-12-27] MEDS: haloperidoL 5 MG TAB PO SCH (08:29)
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
[2021-12-27] MEDS: metFORMIN HCL ER 500 MG TABCR PO SCH (17:12)
[2021-12-27] MEDS: cloZAPine 25 MG TAB PO SCH (21:33)
[2021-12-27] MEDS: PRAZOSIN HCL 1 MG CAP PO SCH (21:34)
[2021-12-27] MEDS: MELATONIN 3 MG TAB PO SCH (21:34)
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
[2021-12-28] MEDS: DOCUSATE SODIUM 100 MG CAP PO SCH (08:53)
[2021-12-28] MEDS: haloperidoL 5 MG TAB PO SCH (08:54)
[2021-12-28] MEDS: metFORMIN HCL ER 500 MG TABCR PO SCH (17:24)
[2021-12-28] MEDS: cloZAPine 100 MG TAB PO SCH (20:28)
[2021-12-28] MEDS: cloZAPine 25 MG TAB PO SCH (20:28)
[2021-12-28] MEDS: PRAZOSIN HCL 1 MG CAP PO SCH (20:29)
[2021-12-29] MEDS: haloperidoL 5 MG TAB PO SCH (08:39)
[2021-12-29] MEDS: DOCUSATE SODIUM 100 MG CAP PO SCH (08:39)
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
[2021-12-29] MEDS: metFORMIN HCL ER 500 MG TABCR PO SCH (18:04)
[2021-12-29] MEDS: cloZAPine 100 MG TAB PO SCH (20:22)
[2021-12-29] MEDS: cloZAPine 25 MG TAB PO SCH (20:23)
[2021-12-29] MEDS: PRAZOSIN HCL 1 MG CAP PO SCH (20:24)
[2021-12-30] MEDS: DOCUSATE SODIUM 100 MG CAP PO SCH (08:09)
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
[2021-12-30] MEDS: metFORMIN HCL ER 500 MG TABCR PO SCH (17:40)
[2021-12-30] MEDS: cloZAPine 25 MG TAB PO SCH (21:11)
[2021-12-30] MEDS: cloZAPine 100 MG TAB PO SCH (21:11)
[2021-12-30] MEDS: PRAZOSIN HCL 1 MG CAP PO SCH (21:11)
[2021-12-31] MEDS: DOCUSATE SODIUM 100 MG CAP PO SCH (07:57)
[2021-12-31 08:22] LABS: Basophils # (auto) 0.04 K/uL (0-0.2); Basophils % (auto) 0.4 %; Eosinophils % (auto) 4.1 %; Hematocrit (blood only) 41.4 % (42-52); Hemoglobin 14.1 g/dL (14.0-18.0); Immature Granulocytes # (auto) 0.02 K/uL (0.00-0.02); Immature Granulocytes % (auto) 0.2 %; Lymphocytes # (auto) 3.49 K/uL (1.2-3.4); Lymphocytes % (auto) 36.2 %; Mean Corpuscular Hemoglobin 30.5 pg (25-34); Mean Corpuscular Hgb Conc 34.1 g/dL (32-36); Mean Corpuscular Volume 89.4 fL (80-100); Mean Platelet Volume 10.5 fL (7.4-10.4); Monocytes # (auto) 0.64 K/uL (0.11-0.59); Monocytes % (auto) 6.6 %; Neutrophils # (auto) 5.05 K/uL (1.4-6.5); Neutrophils % (auto) 52.5 %; Platelet Count 355 K/uL (130-400); RDW Coefficient of Variation 14.8 % (11.5-14.5); RDW Standard Deviation 48.2 fL (36.4-46.3); Red Blood Count 4.63 M/uL (4.7-6.1); White Blood Count 9.64 K/uL (4.8-10.8)
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
[2021-12-31 08:47] LABS: C Reactive Protein < 0.50 mg/dl (0-0.5)
[2021-12-31 08:52] LABS: Troponin I High Sensitivity 5.1 pg/ml (0-20)
[2021-12-31] MEDS: metFORMIN HCL ER 500 MG TABCR PO SCH (17:20)
[2021-12-31] MEDS: cloZAPine 25 MG TAB PO SCH (21:09)
[2021-12-31] MEDS: cloZAPine 100 MG TAB PO SCH (21:09)
[2021-12-31] MEDS: PRAZOSIN HCL 1 MG CAP PO SCH (21:10)
[2022-01-01] MEDS: DOCUSATE SODIUM 100 MG CAP PO SCH (08:25)
[2022-01-01] MEDS: ATENOLOL 25 MG TABLET PO SCH (08:25)
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
[2022-01-01] MEDS: metFORMIN HCL ER 500 MG TABCR PO SCH (17:27)
[2022-01-01] MEDS: PRAZOSIN HCL 1 MG CAP PO SCH (20:48)
[2022-01-01] MEDS: cloZAPine 25 MG TAB PO SCH (20:48)
[2022-01-01] MEDS: cloZAPine 100 MG TAB PO SCH (20:48)
[2022-01-02 06:22] VITALS: O2SAT 100
[2022-01-02] MEDS: ATENOLOL 25 MG TABLET PO SCH (08:18)
[2022-01-02] MEDS: DOCUSATE SODIUM 100 MG CAP PO SCH (08:20)
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
[2022-01-02] MEDS: metFORMIN HCL ER 500 MG TABCR PO SCH (18:13)
[2022-01-02] MEDS: cloZAPine 100 MG TAB PO SCH (21:02)
[2022-01-02] MEDS: PRAZOSIN HCL 1 MG CAP PO SCH (21:02)
[2022-01-03] MEDS: DOCUSATE SODIUM 100 MG CAP PO SCH (08:31)
[2022-01-03] MEDS: ATENOLOL 25 MG TABLET PO SCH (08:32)
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
[2022-01-03] MEDS: metFORMIN HCL ER 500 MG TABCR PO SCH (17:22)
[2022-01-03] MEDS: cloZAPine 100 MG TAB PO SCH (20:57)
[2022-01-03] MEDS: PRAZOSIN HCL 1 MG CAP PO SCH (20:58)
[2022-01-04] MEDS: DOCUSATE SODIUM 100 MG CAP PO SCH (08:18)
[2022-01-04] MEDS: ATENOLOL 25 MG TABLET PO SCH (08:18)
--- NOTE | 2022-01-04 12:44 | Psychiatric Progress Note ---
Date of Service January 04, 2022 Impression / Recommendations Impression 31 yo man with history of schizophrenia with recurrent disorganized psychosis, hx of threatening behavior, breakthrough despite recent Haldol decanoate injections and recent inpatient hospitalization. Diagnostically consistent with acute exacerbation of schizophrenia likely in context of non-adherence with po haldol after last discharge and breakthrough symptoms even with haldol decanoate injections of 150mg on 12/10/21, 50mg on 11/20/21 and 100mg on 11/14/21. 01/04/22: positive response to clozaril, showing more insight into condition (1) Schizophrenia: (2) Prediabetes: adding metformin (3) Hyperlipidemia: Will need PCP follow-up after discharge for monitoring overtime-elevated total and LDL cholesterol 01/04/22: [facility] [id number], confirmed rx was processed at pharmacy, need to coordinate labs/refills with outpatient provider. 01/03/22: standing am Haldol was d/c, PRL reviewed (18), check his enrollment status with [facility] so no disruption in RX upon transition from hospital, CRR referral forms completed. 01/02/22: Increase clozapine 200mg qhs. Continue other medications. 01/01/22: Continue current medications and tx plan. 12/31/21: Atenolol added for tachycardia. ANC stable and normal. Increase clozapine to 175mg qhs. 12/30/21: Continue current medications and tx plan. ANC, prolactin, troponin and CRP tomorrow with blood work. 12/29/21: Discontinue haldol 5mg qam. Continue with clozapine 150mg qhs, prazosin, metformin and colace. 12/28/21: Increase clozapine to 150mg qhs. Discontinued melatonin given improvement in sleep and sedation with clozapine. C/w prazosin, metformin, colace, haldol. Plan to discontinue haldol 5mg po qAM in coming days. 12/27/21: Continue clozapine 125 mg qhs. Plan for meeting with [facility] to discuss potential supportive housing options in effort to avoid [facility] if possible. 12/26/21: titrate clozaril 125 mg this hs, will obtain EKG when at target dose since EKG on file from earlier this admit. Consider PRL with next lab draw, unclear if gynecomastia starting or just weight gain. Will need CXR and PPD prior to official [facility] referral. 12/25/21: patient now willing to titrate clozaril 100 mg this hs. EKG reeval QTc given med combo. discussing possible [facility] referral with [facility]. weekly CBC from 12/24/21 re-reviewed. Will d/c hs Vistaril at his request in favor of a retrial of prazosin as he insists that he did well on it in past for nightmares. 12/20/21: Continue with current medications and tx plan. 12/19/21: Increase clozapine to 50mg qhs. 12/18/21: Continue with current medications and tx plan. 12/17/21: Stop haldol po. Start clozapine 25mg qhs. Start metformin 500mg qd. Start colace 250mg qd and miralax prn. 12/16/21: Continue with current medications for now. CBC labwork and repeat EKG for QTc in anticipation of potentially starting clozapine. 12/15/21: Continue with halol 5mg BID po and prn doses. Added propranolol prn for akathisia. Continue with cogentin and ativan prn. 12/14/21: Continue with haldol 5mg BID and haldol 5mg q6h prn as well as cogentin and ativan prn. Clipped his fingernails. 12/13/21: 304 conversion to inpatient granted at 306 hearing. Continue current meds and treatment plan. He is currently refusing a trial of Latuda. 12/12/21: The patient was [facility] the [facility] ([facility] inpatient mental health unit) on q15 min checks (behavioral with suicide precautions) for safety. The patient will participate in group, recreational, and milieu therapies and will be offered additional individual and family sessions as clinically appropriate. Will resume Haldol and Ativan prns, continue BID standing dose (likely non compliant), Cogentin for hx of dystonia prn. Filed for 306 conversion hearing. Inventory Assets Strengths: employed, no aggression last stay Needs: restabilization, reconsideration for more residential support Risk Factors Assessment Male: Yes Do You Have Access To A Gun?: No Mental Health Diagnoses: Yes Substance Use Disorders: No Previous Attempt: Yes Previous Psychiatric Hospitalization: Yes Protective Factors Assessment : No Employed: Yes Stable Relationships: No Supportive Family: No Interval History Identifying Information LEXII TEE is a 31-year-old M who currently lives in [place], has a history of schizophrenia, and was admitted on 12/11/21 23:09 on a 302 involuntary commitment for disorganized behavior. The patient was just discharged from [facility] on 11/26/21 on a 304 outpatient commitment. Chief Complaint "I'm tolerating clozaril, it really works for me, yes I know I have to continue the blood work, I'll take the [facility] van." Review of Systems Sleep Information Total Hours of Sleep: 8.45 Sleep Comments: pt on q-15 minute checks Meal Information Percent Meal Consumed - Breakfast: 100 Percent Meal Consumed - Lunch: 100 Percent Meal Consumed - Dinner: 100 Subjective Subjective Patient was seen & assessed and interval progress reviewed with nursign and social work. Compliant with unit routines, more organized in coversation. Physical Exam Psychiatric Orientation: alert and oriented x 3 Apperance: appropriately dressed and appropriately groomed Eye Contact: + fair eye contact Motor Behavior: no abnormal motor movements; n EPS Speech: + abnormal rate/rhythm/volume of speech (stutter ) Mood: no depressed mood Thought Process: + concrete thought process Thought Content: reality based without delusions; not paranoid and no delusions Suicidal Thoughts: denies suicidal thoughts Homicidal Thoughts: denies homicidal thoughts Hallucinations: no auditory hallucinations and no visual hallucinations Cognition: attention grossly intact and language grossly intact Vital Signs (Past 24 Hours) Last Vital Signs Temp 36.6 C 01/04/22 06:41 Pulse 102 H 01/04/22 08:22 Resp 16 01/04/22 06:41 BP 124/87 01/04/22 08:22 Pulse Ox 100 01/02/22 06:20 Results & Data ([facility]) Current Inpatient Medications Current Inpatient Medications: Current Inpatient Medications Acetaminophen (Acetaminophen 325 Mg Tab) 650 mg PO Q4H PRN PRN Reason: Headache or Minor Fever Stop: 01/10/22 23:10 Last Admin: 12/17/21 18:07 Dose: 650 mg Documented by: Al Hydrox/Mg Hydrox/Simethicone (Aluminum/Magnesium Susp 30 Ml Udc) 30 ml PO Q4H PRN PRN Reason: GI Upset Stop: 01/10/22 23:10 Atenolol (Atenolol 25 Mg Tablet) 12.5 mg PO QAM [facility] Stop: 01/31/22 08:59 Last Admin: 01/04/22 08:18 Dose: 12.5 mg Documented by: Benztropine Mesylate (Benztropine Mesylate 1 Mg Tab) 1 mg PO Q6 PRN PRN Reason: dystonia Stop: 01/11/22 10:00 Last Admin: 12/21/21 01:25 Dose: 1 mg Documented by: Bismuth Subsalicylate (Bismuth Subsalicylate Liqd 236 Ml) 15 ml PO PRN PRN PRN Reason: Loose Stool Stop: 01/10/22 23:10 Clozapine (Clozapine 100 Mg Tab) 200 mg PO [facility] Stop: 02/01/22 21:59 Last Admin: 01/03/22 20:57 Dose: 200 mg Documented by: Docusate Sodium (Docusate Sodium 100 Mg Cap) 200 mg PO [facility] Stop: 01/17/22 08:59 Last Admin: 01/04/22 08:18 Dose: 200 mg Documented by: Haloperidol (Haloperidol 5 Mg Tab) 5 mg PO Q6 PRN PRN Reason: Anxiety/Agitation Stop: 01/11/22 09:19 Last Admin: 12/22/21 15:42 Dose: 5 mg Documented by: Lorazepam (Lorazepam 1 Mg Tab) 1 mg PO Q6 PRN PRN Reason: Anxiety/Agitation Stop: 01/10/22 23:13 Last Admin: 12/12/21 09:33 Dose: 1 mg Documented by: Magnesium Hydroxide (Magnesium Hydroxide Susp 30 Ml Udc) 30 ml PO DAILY PRN PRN Reason: Constipation Stop: 01/10/22 23:10 Metformin HCl (Metformin Hcl Er 500 Mg Tabcr) [facility] Stop: 01/17/22 17:14 Last Admin: 01/03/22 17:22 Dose: 500 mg Documented by: Polyethylene Glycol (Polyethylene (Miralax) 17 Gm Pack) 17 gm PO DAILY PRN PRN Reason: Constipation Stop: 01/16/22 15:45 Prazosin HCl (Prazosin Hcl 1 Mg Cap) 1 mg PO [facility] Stop: 01/24/22 21:59 Last Admin: 01/03/22 20:58 Dose: 1 mg Documented by: Propranolol HCl (Propranolol Hcl 10 Mg Tab) 10 mg PO BID PRN PRN Reason: akathisia Stop: 01/14/22 08:59 Last Admin: 12/15/21 09:04 Dose: 10 mg Documented by: Sodium Chloride (Sodium Chloride 0.65% Na Soln 45 Ml ([place])) 1 - 2 sprays NA PRN PRN PRN Reason: Nasal Dryness/Congestion Stop: 01/10/22 23:10 Mental Health & Subst Abuse Tx Psychiatrist Name of Psychiatrist: Katie Green - [facility] Psychiatrist's Date of Appointment with Psychiatrist: 01/30/22 Time of Appointment with Psychiatrist: 8:40 a.m. Psychiatric Appointment Comment: [address] [facility] Therapist Name of Therapist: [facility] Therapist's Time of Therapist Appointment: On the waitlist Therapy Appointment Comment: [address] [facility] Logistics Team Lead Name of Logistics Team Lead: [employer] [facility] Phone Number for Logistics Team Lead: [phone] Post Discharge Appointments Primary Care Physician Name Of Family Doctor: DEVYN Blair Primary Care Provider Appointment Comment: [address] [facility] Contact Information Discharge Discharge Address: [address] [place] [address] [address], [place] [address] (1) Schizophrenia Schizophrenia type: disorganized schizophrenia Qualified Code(s): F20.1 - Disorganized schizophrenia
[2022-01-04] MEDS: metFORMIN HCL ER 500 MG TABCR PO SCH (19:13)
[2022-01-04] MEDS: cloZAPine 100 MG TAB PO SCH (21:00)
[2022-01-04] MEDS: PRAZOSIN HCL 1 MG CAP PO SCH (21:00)
[2022-01-05] MEDS: DOCUSATE SODIUM 100 MG CAP PO SCH (08:27)
[2022-01-05] MEDS: ATENOLOL 25 MG TABLET PO SCH (08:27)
--- NOTE | 2022-01-05 13:29 | Psychiatric Progress Note ---
Date of Service January 05, 2022 Impression / Recommendations Impression 31 yo man with history of schizophrenia with recurrent disorganized psychosis, hx of threatening behavior, breakthrough despite recent Haldol decanoate injections and recent inpatient hospitalization. Diagnostically consistent with acute exacerbation of schizophrenia likely in context of non-adherence with po haldol after last discharge and breakthrough symptoms even with haldol decanoate injections of 150mg on 12/10/21, 50mg on 11/20/21 and 100mg on 11/14/21. 01/05/22: positive response to clozaril Plan: continue current meds and treatment plan. Will give next Haldol dec just prior to discharge. Confirm aftercare and safety planning. (1) Schizophrenia: (2) Prediabetes: (3) Hyperlipidemia: Inventory Assets Strengths: employed, no aggression last stay Needs: restabilization, reconsideration for more residential support Risk Factors Assessment Male: Yes Do You Have Access To A Gun?: No Mental Health Diagnoses: Yes Substance Use Disorders: No Previous Attempt: Yes Previous Psychiatric Hospitalization: Yes Protective Factors Assessment : No Employed: Yes Stable Relationships: No Supportive Family: No Interval History Identifying Information LEXII TEE is a 31-year-old M who currently lives in [place], has a history of schizophrenia, and was admitted on 12/11/21 23:09 on a 302 involuntary commitment for disorganized behavior. The patient was just discharged from [facility] on 11/26/21 on a 304 outpatient commitment. Chief Complaint "I'm good" Review of Systems Sleep Information Total Hours of Sleep: 7 Sleep Comments: pt on q-15 minute checks Meal Information Percent Meal Consumed - Breakfast: 100 Percent Meal Consumed - Lunch: 100 Percent Meal Consumed - Dinner: 100 Nutrition Comment: Patient ate 100% of an extra tray in addition to his tray. Subjective Subjective Patient was seen & assessed and interval progress reviewed with nursing and social work. No acute issues over night. Peers do see him talking to himself at times. Physical Exam Psychiatric Orientation: alert and oriented x 3 Apperance: appropriately dressed and appropriately groomed Eye Contact: + fair eye contact Motor Behavior: no abnormal motor movements Speech: normal rate/rhythm/volume of speech Affect: euthymic affect Mood: no depressed mood Thought Process: goal directed thought process Thought Content: reality based without delusions Suicidal Thoughts: denies suicidal thoughts Homicidal Thoughts: denies homicidal thoughts Hallucinations: no auditory hallucinations and no visual hallucinations Cognition: attention grossly intact and language grossly intact Vital Signs (Past 24 Hours) Last Vital Signs Temp 36.6 C 01/05/22 06:22 Pulse 114 H 01/05/22 06:23 Resp 16 01/05/22 06:22 BP 146/83 H 01/05/22 06:23 Pulse Ox 100 01/02/22 06:20 Results & Data ([facility]) Current Inpatient Medications Current Inpatient Medications: Current Inpatient Medications Acetaminophen (Acetaminophen 325 Mg Tab) 650 mg PO Q4H PRN PRN Reason: Headache or Minor Fever Stop: 01/10/22 23:10 Last Admin: 12/17/21 18:07 Dose: 650 mg Documented by: Al Hydrox/Mg Hydrox/Simethicone (Aluminum/Magnesium Susp 30 Ml Udc) 30 ml PO Q4H PRN PRN Reason: GI Upset Stop: 01/10/22 23:10 Atenolol (Atenolol 25 Mg Tablet) [facility] Stop: 01/31/22 08:59 Last Admin: 01/05/22 08:27 Dose: 12.5 mg Documented by: Benztropine Mesylate (Benztropine Mesylate 1 Mg Tab) 1 mg PO Q6 PRN PRN Reason: dystonia Stop: 01/11/22 10:00 Last Admin: 12/21/21 01:25 Dose: 1 mg Documented by: Bismuth Subsalicylate (Bismuth Subsalicylate Liqd 236 Ml) 15 ml PO PRN PRN PRN Reason: Loose Stool Stop: 01/10/22 23:10 Clozapine (Clozapine 100 Mg Tab) 200 mg PO [facility] Stop: 02/01/22 21:59 Last Admin: 01/04/22 21:00 Dose: 200 mg Documented by: Docusate Sodium (Docusate Sodium 100 Mg Cap) 200 [facility] Stop: 01/17/22 08:59 Last Admin: 01/05/22 08:27 Dose: 200 mg Documented by: Haloperidol (Haloperidol 5 Mg Tab) 5 mg PO Q6 PRN PRN Reason: Anxiety/Agitation Stop: 01/11/22 09:19 Last Admin: 12/22/21 15:42 Dose: 5 mg Documented by: Lorazepam (Lorazepam 1 Mg Tab) 1 mg PO Q6 PRN PRN Reason: Anxiety/Agitation Stop: 01/10/22 23:13 Last Admin: 12/12/21 09:33 Dose: 1 mg Documented by: Magnesium Hydroxide (Magnesium Hydroxide Susp 30 Ml Udc) 30 ml PO DAILY PRN PRN Reason: Constipation Stop: 01/10/22 23:10 Metformin HCl (Metformin Hcl Er 500 Mg Tabcr) 500 mg PO DAILYBD [facility] Stop: 01/17/22 17:14 Last Admin: 01/04/22 19:13 Dose: 500 mg Documented by: Polyethylene Glycol (Polyethylene (Miralax) 17 Gm Pack) 17 gm PO DAILY PRN PRN Reason: Constipation Stop: 01/16/22 15:45 Prazosin HCl (Prazosin Hcl 1 Mg Cap) 1 mg PO HS [facility] Stop: 01/24/22 21:59 Last Admin: 01/04/22 21:00 Dose: 1 mg Documented by: Propranolol HCl (Propranolol Hcl 10 Mg Tab) 10 mg PO BID PRN PRN Reason: akathisia Stop: 01/14/22 08:59 Last Admin: 12/15/21 09:04 Dose: 10 mg Documented by: Sodium Chloride (Sodium Chloride 0.65% Na Soln 45 Ml (Castro)) 1 - 2 sprays NA PRN PRN PRN Reason: Nasal Dryness/Congestion Stop: 01/10/22 23:10 Mental Health & Subst Abuse Tx Psychiatrist Name of Psychiatrist: Katie Scott Psychiatrist's Date of Appointment with Psychiatrist: 01/30/22 Time of Appointment with Psychiatrist: 8:40 a.m. Psychiatric Appointment Comment: [address] [facility] Therapist Name of Therapist: Sekal ASkia Therapist's Time of Therapist Appointment: On the waitlist Therapy Appointment Comment: [address] [facility] Water Treatment Plant Operator Name of Water Treatment Plant Operator: [employer] [facility] Phone Number for Water Treatment Plant Operator: [phone] Post Discharge Appointments Primary Care Physician Name Of Family Doctor: DEVYN Blair Primary Care Provider Appointment Comment: [address] [facility] Contact Information Discharge Discharge Address: [address] [place] [address], [address], [place] [address] (1) Schizophrenia Schizophrenia type: disorganized schizophrenia Qualified Code(s): F20.1 - Disorganized schizophrenia
[2022-01-05] MEDS: metFORMIN HCL ER 500 MG TABCR PO SCH (17:21)
[2022-01-05 20:27] VITALS: TEMP 98.2
[2022-01-05] MEDS: PRAZOSIN HCL 1 MG CAP PO SCH (21:18)
[2022-01-05] MEDS: cloZAPine 100 MG TAB PO SCH (21:19)
[2022-01-06 06:38] VITALS: BP 145/102
[2022-01-06] MEDS ORDERED: HALOPERIDOL DECANOATE INJ 50 MG/ML VIAL IM ONE (09:00)
[2022-01-06] MEDS: ATENOLOL 25 MG TABLET PO SCH (09:07)
[2022-01-06] MEDS: DOCUSATE SODIUM 100 MG CAP PO SCH (09:08)
[2022-01-06] MEDS ORDERED: ATENOLOL 25 MG TABLET PO ONE (09:26)
[2022-01-06 09:47] VITALS: PULSE 89
[2022-01-06 10:13] LABS: Hematocrit (blood only) 39.3 % (42-52); Hemoglobin 13.4 g/dL (14.0-18.0); Mean Corpuscular Hemoglobin 30.3 pg (25-34); Mean Corpuscular Hgb Conc 34.1 g/dL (32-36); Mean Corpuscular Volume 88.9 fL (80-100); Mean Platelet Volume 10.5 fL (7.4-10.4); Platelet Count 366 K/uL (130-400); RDW Coefficient of Variation 14.8 % (11.5-14.5); RDW Standard Deviation 48.6 fL (36.4-46.3); Red Blood Count 4.42 M/uL (4.7-6.1); White Blood Count 7.56 K/uL (4.8-10.8)
[2022-01-06 10:54] LABS: Basophils # (auto) 0.05 K/uL (0-0.2); Basophils % (auto) 0.7 %; Eosinophils # (auto) 0.27 K/uL (0-0.5); Eosinophils % (auto) 3.6 %; Immature Granulocytes # (auto) 0.01 K/uL (0.00-0.02); Immature Granulocytes % (auto) 0.1 %; Lymphocytes # (auto) 2.57 K/uL (1.2-3.4); Monocytes % (auto) 6.6 %; Neutrophils # (auto) 4.16 K/uL (1.4-6.5)
--- NOTE | 2022-01-06 11:18 | Discharge Summary ---
Date of Service January 06, 2022 History of Present Illness Per ED CM last night:Patient brought in by [facility] and they report the patient is a 302. 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 302 warrant petitioning statement from Burke Moore reads: Kwesi textreinaldothis to me today, 12/11/21, I dont want to talk to you anymore I am now an atheist. I replied what changed? He replied, I had sex with a girl last night and I l iked it. She convinced me Moravian is stupid and that God doesnt exist. Besides, David can go to [facility] for all I care. This is the last message Ill ever be sending to you. You think you can intimidate me with the things you say but Ill beat you into the ground in a fist fight. David told me you call me the N word under your breath anything I dont say what you want lol. You fool, if u ever say this to me in person I will beat you to and yes I am threatening you. Patient in room and appears to be responding to internal stimuli, talking when no one else is in the room and gesturing. The patient had been seen in the ED on 12/10/21 at which time I was contacted by Dr. Almeida:Patient reportedly brought to ED for randomly calling a woman and accusing her of harming his family. There is no direct threat but police brought to ED and he does seem tangential, as if responding to internal stimuli but appears well groomed and is focussed on going to work, etc. As he is not acutely agitated or suicidal, there were questionable criteria for commitment. Patient well known to me from care on 3S, last hospital stay d/c on 11/26/21 on 5 mg Haldol BID and plan for Haldol dec around 12/13/21. History of poor PO med compliance and appears breaking through prior to due for shot at [facility]. As in the ED, Dr. Almeida agreed to administer his Haldol dec and attempt to contact friend David (thought patient currently declining to involve). I left a message for [facility] that he received shot in ED and to call unit if need additional info. The patient is unable to described his behavior in the last 24-48 hours. He is responding to internal stimuli with hand gestures in the air or putting his head down on the table as if distressed by internal stimuli. He received Ativan prn in the ED. Had to be redirected by staff as walked out of shower room partially clothed, etc. Physical Exam Psychiatric See admission H&P and DOD assessment. Vital Signs (Past 24 Hours) Last Vital Signs Temp 36.8 C 01/06/22 09:46 Pulse 89 01/06/22 09:46 Resp 18 01/06/22 09:46 BP 145/102 H 01/06/22 09:46 Pulse Ox 100 01/06/22 09:46 Principal Diagnosis schizophrenia Psychiatric Data See daily stay summary. In short, safety was maintained, initially the patient was disorganized, intrussive, responding to internal stimuli and perseverated on circumstances around his admission, stated he was defending himself. He was resistant to retrial of clozaril and symptoms minimally improved with additional Haldol. He eventually agreed to low dose Clozaril and showed some improvement but there were concerns about his ability to maintain his work and housing and given length of stay and recent hospitalization. After discussion of referring back to [facility] for more extended stay, he was more agreeable to titration of clozaril and for a referral for CRR. He gained weight and stated that outside of hospital he is more active and actually eats healthier. Reviewed rationale for starting metformin and need for ongoing monitoring of weight/metabolic parameters with antipsychotic medications. He denied galactorrhea. He was started on atenolol for tachy and is aware also a bp pill like prazosin which he feels is helpful for nightmares. He had no orthostasis during his stay and was actually less sedated than on previous clozaril trials. He was cooperative with meetings with and [facility] representatives. His insight into his condition and need for Clozaril improved significantly during his stay and he was no longer expressing any delusions. He states he will use his pill minder box and extensive education/coordination was done around his weekly blood draws and coordinating care with [facility] pharmacy until his monitoring is assumed by [facility] so there is no lapse in rx due to Clozaril [facility] programming ([id number]). His weekly blood draw was obtained a day early so he doesn't not need to present to outpatient lab for 1 week. His Haldol decanoate injection was given on the day of discharge. Day of Discharge Assessment Today the patient voices readiness for discharge. They note improvement in mood and deny thoughts to harm self or others. Thoughts remain organized and they are improved from admission. There is no evidence of psychosis. They agree to take mediations as prescribed and keep follow-up appointments. They are stable for discharge to outpatient level of care on a 304 outpatient commitment. He voiced good understanding of the parameters of his outpatient commitment. Advance Directives Advance Directives Information Provided: Yes Advance Directives: No Mental Health Advance Directive: No Advance Directives on File: No Living Will: No Power of Inspector Bullet Slugs: No Advance Directives Reason:: Declines as Mental Health Visit. Risk Factors Assessment Male: Yes Do You Have Access To A Gun?: No Mental Health Diagnoses: Yes Substance Use Disorders: No Previous Attempt: Yes Previous Psychiatric Hospitalization: Yes Protective Factors Assessment : No Employed: Yes Stable Relationships: No Supportive Family: No Tobacco Cessation at Discharge Tobacco Cessation Medication Prescribed at Discharge: Not Applicable/Non-Smoker Antipsychotic Medications The patient is continuing 2 antipsychotics due to: Augmentation of clozapine: failed haldol dec alone and clozaril alone in past. Total Time Total Time Spent: Greater Than 30 Minutes Total Time Includes: Examination of the patient, Discharge Planning and Medication Reconciliation Discharge Data Lab Results 12/11/21 12/11/21 12/11/21 15:56 15:56 16:27 WBC 8.31 RBC 4.83 Hgb 14.8 Hct 43.1 MCV 89.2 MCH 30.6 MCHC 34.3 RDW Std Deviation 45.0 RDW Coeff of Tawanna 13.8 Plt Count 366 MPV 10.7 H Immature Gran % (Auto) 0.1 Neut % (Auto) 64.5 Lymph % (Auto) 26.6 [place] % (Auto) 6.0 Eos % (Auto) 2.2 Baso % (Auto) 0.6 Neut # (Auto) 5.36 Lymph # (Auto) 2.21 [place] # (Auto) 0.50 Eos # (Auto) 0.18 Baso # (Auto) 0.05 Immature Gran # (Auto) 0.01 Sodium Potassium Chloride Carbon Dioxide Anion Gap BUN Creatinine Est Cr Clr Drug Dosing Est GFR ( Amer) Est GFR (Non-Af Amer) BUN/Creatinine Ratio Glucose Fasting Glucose Estimat Average Glucose Hemoglobin A1c Calcium Total Bilirubin AST ALT Alkaline Phosphatase Troponin I High Sens C-Reactive Protein Total Protein Albumin Globulin Albumin/Globulin Ratio Triglycerides Cholesterol LDL Cholesterol, Calc VLDL Cholesterol, Calc HDL Cholesterol Cholesterol/HDL Ratio TSH Prolactin Urine Color Dark Yellow Urine Appearance Clear Urine pH 6.0 Ur Specific [place] 1.032 H Urine Protein 2+ H Urine Glucose (UA) Negative Urine Ketones Trace H Urine Blood Negative Urine Nitrite Negative Urine Bilirubin Negative Urine Urobilinogen Negative Ur Leukocyte Esterase Negative Urine WBC (Auto) 1-5 Urine RBC (Auto) 0-4 U Hyaline Cast (Auto) 10-30 H U Epithel Cells (Auto) 10-20 H Urine Bacteria (Auto) Negative Salicylates Urine Opiates Screen Neg Ur Methadone, Qual Neg Acetaminophen Urine Barbiturates Neg Ur Phencyclidine (PCP) Neg U Amphetamin/Meth Scrn Neg MDMA (Ecstasy) Screen Neg U Benzodiazepines Scrn Neg Ur Cocaine Metabolite Neg U Marijuana (THC) Screen Neg Ethyl Alcohol mg/dL SARS-CoV-2, RNA, NAAT 12/11/21 12/11/21 12/11/21 16:27 16:27 16:27 WBC RBC Hgb Hct MCV MCH MCHC RDW Std Deviation RDW Coeff of Tawanna Plt Count MPV Immature Gran % (Auto) Neut % (Auto) Lymph % (Auto) [place] % (Auto) Eos % (Auto) Baso % (Auto) Neut # (Auto) Lymph # (Auto) [place] # (Auto) Eos # (Auto) Baso # (Auto) Immature Gran # (Auto) Sodium 139 Potassium 3.5 Chloride 103 Carbon Dioxide 28 Anion Gap 8 BUN 19 Creatinine 1.03 Est Cr Clr Drug Dosing 117.6 Est GFR ( Amer) 113.2 Est GFR (Non-Af Amer) 97.7 BUN/Creatinine Ratio 18.4 Glucose 110 H Fasting Glucose Estimat Average Glucose Hemoglobin A1c Calcium 9.8 Total Bilirubin 0.4 AST 30 ALT 28 Alkaline Phosphatase 64 Troponin I High Sens C-Reactive Protein Total Protein 8.1 Albumin 4.7 Globulin 3.4 Albumin/Globulin Ratio 1.4 Triglycerides Cholesterol LDL Cholesterol, Calc VLDL Cholesterol, Calc HDL Cholesterol Cholesterol/HDL Ratio TSH 0.937 Prolactin Urine Color Urine Appearance Urine pH Ur Specific [place] Urine Protein Urine Glucose (UA) Urine Ketones Urine Blood Urine Nitrite Urine Bilirubin Urine Urobilinogen Ur Leukocyte Esterase Urine WBC (Auto) Urine RBC (Auto) U Hyaline Cast (Auto) U Epithel Cells (Auto) Urine Bacteria (Auto) Salicylates < 3.0 L Urine Opiates Screen Ur Methadone, Qual Acetaminophen < 3 L Urine Barbiturates Ur Phencyclidine (PCP) U Amphetamin/Meth Scrn MDMA (Ecstasy) Screen U Benzodiazepines Scrn Ur Cocaine Metabolite U Marijuana (THC) Screen Ethyl Alcohol mg/dL SARS-CoV-2, RNA, NAAT 12/11/21 12/11/21 12/17/21 16:27 17:00 07:24 WBC 6.09 RBC 4.51 L Hgb 13.7 L Hct 39.8 L MCV 88.2 MCH 30.4 MCHC 34.4 RDW Std Deviation 44.9 RDW Coeff of [place] 13.9 Plt Count 375 MPV 10.0 Immature Gran % (Auto) 0.2 Neut % (Auto) 40.3 Lymph % (Auto) 43.8 [place] % (Auto) 8.4 Eos % (Auto) 6.2 Baso % (Auto) 1.1 Neut # (Auto) 2.45 Lymph # (Auto) 2.67 [place] # (Auto) 0.51 Eos # (Auto) 0.38 Baso # (Auto) 0.07 Immature Gran # (Auto) 0.01 Sodium Potassium Chloride Carbon Dioxide Anion Gap BUN Creatinine Est Cr Clr Drug Dosing Est GFR ( Amer) Est GFR (Non-Af Amer) BUN/Creatinine Ratio Glucose Fasting Glucose Estimat Average Glucose Hemoglobin A1c Calcium Total Bilirubin AST ALT Alkaline Phosphatase Troponin I High Sens C-Reactive Protein Total Protein Albumin Globulin Albumin/Globulin Ratio Triglycerides Cholesterol LDL Cholesterol, Calc VLDL Cholesterol, Calc HDL Cholesterol Cholesterol/HDL Ratio TSH Prolactin Urine Color Urine Appearance Urine pH Ur Specific [place] Urine Protein Urine Glucose (UA) Urine Ketones Urine Blood Urine Nitrite Urine Bilirubin Urine Urobilinogen Ur Leukocyte Esterase Urine WBC (Auto) Urine RBC (Auto) U Hyaline Cast (Auto) U Epithel Cells (Auto) Urine Bacteria (Auto) Salicylates Urine Opiates Screen Ur Methadone, Qual Acetaminophen Urine Barbiturates Ur Phencyclidine (PCP) U Amphetamin/Meth Scrn MDMA (Ecstasy) Screen U Benzodiazepines Scrn Ur Cocaine Metabolite U Marijuana (THC) Screen Ethyl Alcohol mg/dL < 10.0 SARS-CoV-2, RNA, NAAT NEGATIVE 12/17/21 12/17/21 12/24/21 07:24 07:24 08:42 WBC 5.99 RBC 4.64 L Hgb 14.0 Hct 41.3 L MCV 89.0 MCH 30.2 MCHC 33.9 RDW Std Deviation 47.2 H RDW Coeff of Tawanna 14.5 Plt Count 350 MPV 10.3 Immature Gran % (Auto) 0.3 Neut % (Auto) 48.5 Lymph % (Auto) 40.1 [place] % (Auto) 5.8 Eos % (Auto) 4.8 Baso % (Auto) 0.5 Neut # (Auto) 2.90 Lymph # (Auto) 2.40 [place] # (Auto) 0.35 Eos # (Auto) 0.29 Baso # (Auto) 0.03 Immature Gran # (Auto) 0.02 Sodium Potassium Chloride Carbon Dioxide Anion Gap BUN Creatinine Est Cr Clr Drug Dosing Est GFR ( Amer) Est GFR (Non-Af Amer) BUN/Creatinine Ratio Glucose Fasting Glucose 81 Estimat Average Glucose 120 Hemoglobin A1c 5.8 H Calcium Total Bilirubin AST ALT Alkaline Phosphatase Troponin I High Sens C-Reactive Protein Total Protein Albumin Globulin Albumin/Globulin Ratio Triglycerides 83 Cholesterol 221 H LDL Cholesterol, Calc 148 VLDL Cholesterol, Calc 17 HDL Cholesterol 56 Cholesterol/HDL Ratio 3.9 TSH Prolactin Urine Color Urine Appearance Urine pH Ur Specific [place] Urine Protein Urine Glucose (UA) Urine Ketones Urine Blood Urine Nitrite Urine Bilirubin Urine Urobilinogen Ur Leukocyte Esterase Urine WBC (Auto) Urine RBC (Auto) U Hyaline Cast (Auto) U Epithel Cells (Auto) Urine Bacteria (Auto) Salicylates Urine Opiates Screen Ur Methadone, Qual Acetaminophen Urine Barbiturates Ur Phencyclidine (PCP) U Amphetamin/Meth Scrn MDMA (Ecstasy) Screen U Benzodiazepines Scrn Ur Cocaine Metabolite U Marijuana (THC) Screen Ethyl Alcohol mg/dL SARS-CoV-2, RNA, NAAT 12/31/21 12/31/21 12/31/21 07:45 07:45 07:45 WBC 9.64 RBC 4.63 L Hgb 14.1 Hct 41.4 L MCV 89.4 MCH 30.5 MCHC 34.1 RDW Std Deviation 48.2 H RDW Coeff of Tawanna 14.8 H Plt Count 355 MPV 10.5 H Immature Gran % (Auto) 0.2 Neut % (Auto) 52.5 Lymph % (Auto) 36.2 [place] % (Auto) 6.6 Eos % (Auto) 4.1 Baso % (Auto) 0.4 Neut # (Auto) 5.05 Lymph # (Auto) 3.49 H [place] # (Auto) 0.64 H Eos # (Auto) 0.40 Baso # (Auto) 0.04 Immature Gran # (Auto) 0.02 Sodium Potassium Chloride Carbon Dioxide Anion Gap BUN Creatinine Est Cr Clr Drug Dosing Est GFR ( Amer) Est GFR (Non-Af Amer) BUN/Creatinine Ratio Glucose Fasting Glucose Estimat Average Glucose Hemoglobin A1c Calcium Total Bilirubin AST ALT Alkaline Phosphatase Troponin I High Sens 5.1 C-Reactive Protein < 0.50 Total Protein Albumin Globulin Albumin/Globulin Ratio Triglycerides Cholesterol LDL Cholesterol, Calc VLDL Cholesterol, Calc HDL Cholesterol Cholesterol/HDL Ratio TSH Prolactin 18.20 Urine Color Urine Appearance Urine pH Ur Specific [place] Urine Protein Urine Glucose (UA) Urine Ketones Urine Blood Urine Nitrite Urine Bilirubin Urine Urobilinogen Ur Leukocyte Esterase Urine WBC (Auto) Urine RBC (Auto) U Hyaline Cast (Auto) U Epithel Cells (Auto) Urine Bacteria (Auto) Salicylates Urine Opiates Screen Ur Methadone, Qual Acetaminophen Urine Barbiturates Ur Phencyclidine (PCP) U Amphetamin/Meth Scrn MDMA (Ecstasy) Screen U Benzodiazepines Scrn Ur Cocaine Metabolite U Marijuana (THC) Screen Ethyl Alcohol mg/dL SARS-CoV-2, RNA, NAAT 01/06/22 09:44 WBC 7.56 RBC 4.42 L Hgb 13.4 L Hct 39.3 L MCV 88.9 MCH 30.3 MCHC 34.1 RDW Std Deviation 48.6 H RDW Coeff of Tawanna 14.8 H Plt Count 366 MPV 10.5 H Immature Gran % (Auto) 0.1 Neut % (Auto) 55.0 Lymph % (Auto) 34.0 [place] % (Auto) 6.6 Eos % (Auto) 3.6 Baso % (Auto) 0.7 Neut # (Auto) 4.16 Lymph # (Auto) 2.57 [place] # (Auto) 0.50 Eos # (Auto) 0.27 Baso # (Auto) 0.05 Immature Gran # (Auto) 0.01 Sodium Potassium Chloride Carbon Dioxide Anion Gap BUN Creatinine Est Cr Clr Drug Dosing Est GFR ( Amer) Est GFR (Non-Af Amer) BUN/Creatinine Ratio Glucose Fasting Glucose Estimat Average Glucose Hemoglobin A1c Calcium Total Bilirubin AST ALT Alkaline Phosphatase Troponin I High Sens C-Reactive Protein Total Protein Albumin Globulin Albumin/Globulin Ratio Triglycerides Cholesterol LDL Cholesterol, Calc VLDL Cholesterol, Calc HDL Cholesterol Cholesterol/HDL Ratio TSH Prolactin Urine Color Urine Appearance Urine pH Ur Specific [place] Urine Protein Urine Glucose (UA) Urine Ketones Urine Blood Urine Nitrite Urine Bilirubin Urine Urobilinogen Ur Leukocyte Esterase Urine WBC (Auto) Urine RBC (Auto) U Hyaline Cast (Auto) U Epithel Cells (Auto) Urine Bacteria (Auto) Salicylates Urine Opiates Screen Ur Methadone, Qual Acetaminophen Urine Barbiturates Ur Phencyclidine (PCP) U Amphetamin/Meth Scrn MDMA (Ecstasy) Screen U Benzodiazepines Scrn Ur Cocaine Metabolite U Marijuana (THC) Screen Ethyl Alcohol mg/dL SARS-CoV-2, RNA, NAAT Hospital Course (1) Schizophrenia: (2) Prediabetes: adding metformin (3) Hyperlipidemia: Will need PCP follow-up after discharge for monitoring overtime-elevated total and LDL cholesterol 01/04/22: Clozaril [facility] [id number], confirmed rx was processed at pharmacy, need to coordinate labs/refills with outpatient provider. 01/03/22: standing am Haldol was d/c, PRL reviewed (18), check his enrollment status with Clozaril [facility] so no disruption in RX upon transition from hospital, CRR referral forms completed. 01/02/22: Increase clozapine 200mg qhs. Continue other medications. 01/01/22: Continue current medications and tx plan. 12/31/21: Atenolol added for tachycardia. ANC stable and normal. Increase clozapine to 175mg qhs. 12/30/21: Continue current medications and tx plan. ANC, prolactin, troponin and CRP tomorrow with blood work. 12/29/21: Discontinue haldol 5mg qam. Continue with clozapine 150mg qhs, prazosin, metformin and colace. 12/28/21: Increase clozapine to 150mg qhs. Discontinued melatonin given improvement in sleep and sedation with clozapine. C/w prazosin, metformin, colace, haldol. Plan to discontinue haldol 5mg po qAM in coming days. 12/27/21: Continue clozapine 125 mg qhs. Plan for meeting with [facility] to discuss potential supportive housing options in [facility]. 12/26/21: titrate clozaril 125 mg this hs, will obtain EKG when at target dose since EKG on file from earlier this admit. Consider PRL with next lab draw, unclear if gynecomastia starting or just weight gain. Will need CXR and PPD prior to official [facility] hospital referral. 12/25/21: patient now willing to titrate clozaril 100 mg this hs. EKG reeval QTc given med combo. discussing possible [facility] hospital referral with [facility]. weekly CBC from 12/24/21 re-reviewed. Will d/c hs Vistaril at his request in favor of a retrial of prazosin as he insists that he did well on it in past for nightmares. 12/20/21: Continue with current medications and tx plan. 12/19/21: Increase clozapine to 50mg qhs. 12/18/21: Continue with current medications and tx plan. 12/17/21: Stop haldol po. Start clozapine 25mg qhs. Start metformin 500mg qd. Start colace 250mg qd and miralax prn. 12/16/21: Continue with current medications for now. CBC labwork and repeat EKG for QTc in anticipation of potentially starting clozapine. 12/15/21: Continue with halol 5mg BID po and prn doses. Added propranolol prn for akathisia. Continue with cogentin and ativan prn. 12/14/21: Continue with haldol 5mg BID and haldol 5mg q6h prn as well as cogentin and ativan prn. Clipped his fingernails. 12/13/21: 304 conversion to inpatient granted at 306 hearing. Continue current meds and treatment plan. He is currently refusing a trial of Latuda. 12/12/21: The patient was [facility]) on q15 min checks (behavioral with suicide precautions) for safety. The patient will participate in group, recreational, and milieu therapies and will be offered additional individual and family sessions as clinically appropriate. Will resume Haldol and Ativan prns, continue BID standing dose (likely non compliant), Cogentin for hx of dystonia prn. Filed for 306 conversion hearing. Mental Health & Subst Abuse Tx Psychiatrist Name of Psychiatrist: Katie Green - [facility] Psych[facility]'s Date of Appointment with Psychiatrist: 01/30/22 Time of Appointment with Psychiatrist: 8:40 a.m. Psychiatric Appointment Comment: [facility] Psychiatrist Release of Information: Obtained, Reviewed and Signed Therapist Name of Therapist: Katie Green Therapist's Time of Therapist Appointment: On the waitlist Therapy Appointment Comment: [facility] Therapist Release of Information: Obtained, Reviewed and Signed Athletic Coordinator Name of Athletic Coordinator: [facility] Unit - [facility] Phone Number for Athletic Coordinator: [phone] Date of Appointment with Athletic Coordinator: 01/07/22 Time of Appointment with Athletic Coordinator: 2p.m Athletic Coordinator Release of Information: Obtained, Reviewed and Signed Post Discharge Appointments Primary Care Physician Name Of Family Doctor: Laxmi Srinivasan Primary Care Date of Appointment with PCP: 03/19/22 Time of Appointment with PCP: 10am Provider Appointment Comment: [facility] Primary Care Release of Information: Obtained, Reviewed and Signed Smoking Cessation Counseling Tobacco Cessation Medication Prescribed at Discharge: Not Applicable/Non-Smoker Other #1: Name of Aftercare Appointment: Katie Green PCP - Dr. Srinivasan Phone Number of Aftercare Appointment: [phone] Date of Aftercare Appointment: 03/19/22 Time of Aftercare Appointment: 10:00 a.m. Aftercare Appointment Comment: [facility] #2: Name of Aftercare Appointment: Katie Green Phone Number of Aftercare Appointment: [phone] Time of Aftercare Appointment: *Can go for weekly blood draws after first appointment with Waylon Scott* Aftercare Appointment Comment: [facility] Contact Information Discharge Discharge Address: [address] [place] [address], [place] [address] Discharge Plan Discharge Items Patient Disposition: Home - Self-Care Reason For Visit: MENTAL HEALTH EVAL Discharge Diagnosis: schizophrenia Activity: Resume your previous activity Non-emergency contact: Primary Care Provider, Psychiatrist, Therapist and Work Counselor Call non-emergency contact if: you have any medication questions and your symptoms worsen Follow-up/Referrals: Lilibeth Morton MD [Primary Care Provider] - Diet: Regular Addtl Attending Provider Instructions: SPECIAL CARE INSTRUCTIONS: 1. Follow through with your scheduled aftercare appointments. If unable to keep an appointment, please call to reschedule. 2. Take your medication only as prescribed. Medication should not be changed or stopped without the approval of your doctor. In the event of worsening symptoms or concerns about side effects, contact your doctor immediately. 3. Utilize new healthy coping skills, anger management skills, and stress management skills learned during your hospitalization. Journal feelings and process them with a support person. Identify stressors or situations that may result in relapse, deterioration or inappropriate behaviors and develop a plan to deal with those issues. 4. If your coping skills are ineffective and you are in crisis, contact your outpatient providers for direction. If unable to reach your providers, please call the [facility] CRISIS LINE AT , go to the [facility] walk-in center at [address], [place], or go to the closest Emergency Room. 5. Avoid alcohol and un-prescribed drugs. 6. You have been provided with the Mental Health Advance Directives Pamphlet for your review. 7. Your condition is stable for discharge to outpatient level of care, but recovery is an ongoing process. Ifthoughts to harm yourself or others return, follow the safety plan developed during your stay. Planning for a safe return home includes securing weapons. Our treatment team recommends weaponsbe removed from the home until your outpatient provider reassesses your progress. In rare cases where the items themselvescannot be removed, guns and ammunitionshould be secured separatelyand keys stored by a reliable personoutside of the home. If you were admitted on an involuntary commitment, the police or other legal authorities may be involved in this process. AFTERCARE APPOINTMENTS: * Please call your insurance company prior to your scheduled appointment to confirm your aftercare providers are covered. Take your insurance information to your appointments. WHO TO CALL AND WHEN: Medical Emergencies: For questions or emergencies related to your hospital stay, please contact the Inpatient Behavioral Health Unit at [phone]. A cardiology fellow is on-call 06/04 for the Behavioral Health Unit for emergencies At any time you feel your situation is an emergency, you may also call 911 immediately. Pending Studies at Discharge: Yes Studies:: will need weekly labs for Clozaril pending [facility] appointment, given 3 lab slips for CBC 01/13, 01/20 and 01/27/22 Stand-Alone Forms: [facility], Smoking Cessation Medications and DC Order Prescriptions: New clozapine [Clozaril] 200 mg tablet 200 mg PO HS Qty: 7 RF: 0 prazosin 1 mg Capsule 1 mg PO HS Qty: 30 RF: 0 atenolol 25 mg Tablet 25 mg PO QAM 30 Days Qty: 30 RF: 0 docusate sodium 100 mg Capsule 200 mg PO QAM PRN (Reason: constipation) Qty: 1 RF: 0 metformin 500 mg Tablet Extended Release 24 Hr 500 mg PO DAILYBD 30 Days Qty: 30 RF: 0 clozapine [Clozaril] 100 mg tablet 200 mg PO HS Qty: 14 RF: 3 Continued haloperidol decanoate 100 mg/mL solution 150 mg IM Q4WK Qty: 1 RF: 0 Discontinued haloperidol 5 mg Tablet 5 mg PO BID 30 Days Qty: 60 RF: 0 melatonin 3 mg Tablet 3 mg PO HS Qty: 14 RF: 0 benztropine 1 mg Tablet 1 mg PO BID 30 Days Qty: 60 RF: 0 Discharge Orders: Discharge Order (Routine); Ordered 01/06/22 Ordered By: Gabbi Vale Admission Data Admit Date/Time: 12/11/21 23:09 Attending Provider: Gabbi Vale Admit Provider: Gabbi Vale Primary Care Provider: Lilibeth Morton V. Other Interventions: Discharge Summary Assessment (RN) Last Done: 01/06/22 09:46 PSY Interdisciplinary Discharge Planning Last Done: 01/06/22 10:19 Coding Level of Care Code 83367 D/C day mgmt > 30 min Diagnoses Schizophrenia F20.1 Schizophrenia type: disorganized schizophrenia Prediabetes R73.03 Hyperlipidemia E78.5
[2022-01-07] MEDS ORDERED: ATENOLOL 25 MG TABLET PO SCH (09:00)
== END 2022-01-06 11:00 | disposition home or self-care (01) | DRG 885 ==
LOC: ED 15:13 → SUATTDRO 23:09 → 3S 23:09

== ENCOUNTER 2023-05-25 18:11 | Inpatient (IN) ==
--- NOTE | 2023-05-25 20:48 | Emergency Department Note ---
Impression & Plan Suicidal ideation ED Provider Note NAME: LEXII TEE AGE: 32 SEX: M : 1990 ARRIVES VIA: Walk-In INFORMANT: Patient, ED PROVIDER(S): Pierre Tam MD CHIEF COMPLAINT: Shortness of breath/SI HPI: This is a 32-year-old male with history of schizophrenia presenting for congestion, shortness of breath, suicidal ideation. Patient states that he thinks he had COVID-19. He states he got all the vaccines and is very upset by the fact that he may have COVID-19 again. He states he has some slight congestion, slight shortness of breath and otherwise feels like he may have cold-like symptoms. He states this upset him to the point where he is suicidal and wants to jump in front of a moving vehicle. He states he always tells people when he has thoughts of suicide in order to prevent this from happening. He was recently admitted for appears to be psychosis. He tells me [place] was [place]. Reportedly patient may not be in the . ROS: See above HPI for pertinent positives & negatives. A total of 10 systems reviewed and were otherwise negative. PAST MEDICAL HISTORY: See Below PAST SURGICAL HISTORY: See Below FAMILY HISTORY: See Below SOCIAL HISTORY: See Below HOME MEDICATIONS: See Below ALLERGIES: See Below VITALS: See Below PHYSICAL EXAMINATION: General: resting comfortably in no acute distress Head: Normocephalic and atraumatic Eyes: Normal inspection, extraocular muscles intact, no conjunctival pallor Ear, nose, throat: Normal external exam Neck: Normal range of motion Respiratory: Patient is in no respiratory distress, Extremities: , no LE pitting edema or calf tenderness Neuro: The patient awake and alert, appropriately conversive,no focal decifits Skin: Warm, dry, and intact Psych: Slightly slow to respond, stuttering, slight delusions MEDICAL DECISION MAKING: This is a 32-year-old male with history of schizophrenia presenting for congestion after his breath this was ideation. Will test patient for COVID-19 as this is his main concern. He appears to have slight upper respiratory infection type symptoms. Normal vital signs as reviewed below. Otherwise patient is suicidal with plan, all we will do screening blood work and imaging to rule out any medical abnormalities preventing psychiatric work-up. Patient's blood work and screening work-up is negative, medically clear for psychiatric evaluation. Patient is COVID-negative, discussed with the patient who states he is still suicidal. This is confirmed by case management. Patient states he was told come front of a car if he was discharged today. He is seeking voluntary admission. Patient care signed out to oncoming physician pending bed search. Triage Nursing notes reviewed. Prior medical records reviewed Vital Signs: reviewed and remarkable for no significant abnormalities Differential diagnosis: SI, URI, COVID ER treatment provided: See below Diagnostics interpreted by me: ECG: None Cardiac Monitoring: An order was placed for continuous cardiac monitoring. The monitor shows a rate of with rhythm. Laboratory studies: As stated above and show below. Imaging studies: Chest x-ray as reviewed by me shows no focal consolidations, pneumothorax or pleural effusions Consultation(s): None Past Med/Surg History Medical History (Updated 05/25/23 @ 23:19 by Pierre Tam MD) Alcohol use disorder . 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 Followed by [facility] by Dr. Aguilar. Managed with clozapine Schizophrenia Sinus tachycardia Sleep deprivation Somnolence Suicide attempt Weakness generalized Surgical History No history of previous surgery Family History (System 12/11/21 @ 07:05 by Jayleen Gallo) Denies family history of Colon cancer Ovarian cancer Prostate cancer Myocardial infarction Breast cancer Social History Smoking Status: Never smoker Cigarettes Per Day: Patient unresponsive at this time; Hx Alcohol Use: No Hx Substance Use: No Preferred Language: Frisian Communication Ability: Effective Communication Ability Comment: Pt unable to provide an asnwer at this time Visual Impairment: No Limitations Hearing Ability: Normal Dance Coach Required: No Beliefs That Will Affect Care: None marital status: Single Current Living Situation: Other Current Living Situation Comment: Apartment , see ED admission report current occupational status: employed Feels Safe at Home: Yes Childhood Exposure to Second-Hand Smoke: No Dental Care, Regularly: No Physical Activity Frequency: Does not Exercise Seatbelt Use: always Sunscreen Use: No Gender Identity: Male Assistive Devices: None and Glasses Allergies Allergies Allergy/AdvReac Type Severity Reaction Status Date / Time meloxicam AdvReac blurred Verified 02/11/22 10:25 vision naproxen AdvReac blurred Verified 02/11/22 10:25 vision Home Meds Previous Rx's Medication Instructions Recorded haloperidol decanoate 100 mg/mL 150 mg (1.5 mL) IM Q4WK #1 vial 11/26/21 intramuscular solution clozapine 200 mg tablet (Clozaril) 200 mg PO HS #7 tabs 01/03/22 docusate sodium 100 mg capsule 200 mg PO QAM PRN constipation #1 01/06/22 cap prazosin 1 mg capsule 1 mg PO HS #30 caps 01/06/22 Results & Data (ED) Vital Signs Vital Signs - 24 hr 05/25/23 18:51 Temperature 36.4 C L Temperature Source Temporal Artery Scan Pulse Rate 101 H Respiratory Rate 18 Respiratory Effort / Characteristics Non-Labored Respiratory Depth Normal Blood Pressure 130/95 Blood Pressure Mean 106 Pulse Oximetry 97 Oxygen Delivery Method Room Air Sepsis Recent Fever Within 48 Hours No Sepsis New/Unexplained Change in Mental Status No Sepsis Action Taken by Nursing No Action Required Laboratory Data 05/25/23 20:42 05/25/23 20:42 Lab Results 05/25/23 05/25/23 05/25/23 Range/Units 20:42 20:42 20:42 WBC 9.16 (4.8-10.8) K/ul RBC 4.42 L (4.70-6.10) M/uL Hgb 13.1 L (14.0-18.0) g/dl Hct 37.3 L (42.0-52.0) % MCV 84.4 (80.0-100.0) fL MCH 29.6 (25.0-34.0) pg MCHC 35.1 (32.0-36.0) g/dL RDW Std Deviation 43.7 (36.4-46.3) fL RDW Coeff of Tawanna 14.2 (11.5-14.5) % Plt Count 403 H (130-400) K/uL MPV 10.3 (9.4-12.4) fL Immature Gran % (Auto) 0.2 % Neut % (Auto) 66.7 % Lymph % (Auto) 25.1 % [place] % (Auto) 6.7 % Eos % (Auto) 1.0 % Baso % (Auto) 0.3 % Neut # (Auto) 6.11 (1.40-6.50) K/uL Lymph # (Auto) 2.30 (1.20-3.40) K/uL [place] # (Auto) 0.61 H (0.11-0.59) K/uL Eos # (Auto) 0.09 (0.00-0.50) K/uL Baso # (Auto) 0.03 (0.00-0.20) K/uL Immature Gran # (Auto) 0.02 (0.01-0.20) K/uL Sodium 139 (136-145) mmol/L Potassium 3.8 (3.5-5.1) mmol/L Chloride 104 (98-107) mmol/L Carbon Dioxide 28 (21-32) mmol/L Anion Gap 7 (3-11) BUN 14 (6-23) mg/dl Creatinine 1.02 (0.6-1.4) mg/dl Est Cr Clr Drug Dosing Not Reportable Est GFR ( Amer) 113.8 ml/min Est GFR (Non-Af Amer) 98.2 ml/min BUN/Creatinine Ratio 13.7 (10-20) Glucose 113 H (70-99(Fasting)) mg/dl Calcium 9.4 (8.6-10.3) mg/dl Total Bilirubin 0.3 (0.2-1.0) mg/dl AST 22 (13-39) U/L ALT 18 (7-52) U/L Alkaline Phosphatase 69 (34-104) U/L Total Protein 7.8 (6.0-8.3) gm/dl Albumin 4.2 (3.4-5.0) gm/dl Globulin 3.6 (2.5-4.0) gm/dl Albumin/Globulin Ratio 1.2 (0.9-2) TSH 1.412 (0.300-4.500) uIu/ml Urine Color Urine Appearance (Clear) Urine pH (4.5-7.5) Ur Specific [place] (1.000-1.030) Urine Protein (Negative) Urine Glucose (UA) (Negative) Urine Ketones (Negative) Urine Blood (Negative) Urine Nitrite (Negative) Urine Bilirubin (Negative) Urine Urobilinogen (Negative) Ur Leukocyte Esterase (Negative) Urine WBC (Auto) (0-5) /hpf Urine RBC (Auto) (0-4) /hpf U Hyaline Cast (Auto) (0-5) /lpf U Epithel Cells (Auto) (0-5) /lpf Urine Bacteria (Auto) (Negative) Salicylates (3.0-30) mg/dl Urine Opiates Screen (Neg) Ur Methadone, Qual (Neg) Acetaminophen (10-30) ug/ml Urine Barbiturates (Neg) Ur Phencyclidine (PCP) (Neg) U Amphetamin/Meth Scrn (Neg) MDMA (Ecstasy) Screen (Neg) U Benzodiazepines Scrn (Neg) Ur Cocaine Metabolite (Neg) U Marijuana (THC) Screen (Neg) Ethyl Alcohol mg/dL (<10.0) mg/dl SARS-CoV-2, RNA, NAAT (NEGATIVE) 05/25/23 05/25/23 05/25/23 Range/Units 20:42 20:42 20:42 WBC (4.8-10.8) K/ul RBC (4.70-6.10) M/uL Hgb (14.0-18.0) g/dl Hct (42.0-52.0) % MCV (80.0-100.0) fL MCH (25.0-34.0) pg MCHC (32.0-36.0) g/dL RDW Std Deviation (36.4-46.3) fL RDW Coeff of Tawanna (11.5-14.5) % Plt Count (130-400) K/uL MPV (9.4-12.4) fL Immature Gran % (Auto) % Neut % (Auto) % Lymph % (Auto) % [place] % (Auto) % Eos % (Auto) % Baso % (Auto) % Neut # (Auto) (1.40-6.50) K/uL Lymph # (Auto) (1.20-3.40) K/uL [place] # (Auto) (0.11-0.59) K/uL Eos # (Auto) (0.00-0.50) K/uL Baso # (Auto) (0.00-0.20) K/uL Immature Gran # (Auto) (0.01-0.20) K/uL Sodium (136-145) mmol/L Potassium (3.5-5.1) mmol/L Chloride (98-107) mmol/L Carbon Dioxide (21-32) mmol/L Anion Gap (3-11) BUN (6-23) mg/dl Creatinine (0.6-1.4) mg/dl Est Cr Clr Drug Dosing Est GFR ( Amer) ml/min Est GFR (Non-Af Amer) ml/min BUN/Creatinine Ratio (10-20) Glucose (70-99(Fasting)) mg/dl Calcium (8.6-10.3) mg/dl Total Bilirubin (0.2-1.0) mg/dl AST (13-39) U/L ALT (7-52) U/L Alkaline Phosphatase (34-104) U/L Total Protein (6.0-8.3) gm/dl Albumin (3.4-5.0) gm/dl Globulin (2.5-4.0) gm/dl Albumin/Globulin Ratio (0.9-2) TSH (0.300-4.500) uIu/ml Urine Color Urine Appearance (Clear) Urine pH (4.5-7.5) Ur Specific [place] (1.000-1.030) Urine Protein (Negative) Urine Glucose (UA) (Negative) Urine Ketones (Negative) Urine Blood (Negative) Urine Nitrite (Negative) Urine Bilirubin (Negative) Urine Urobilinogen (Negative) Ur Leukocyte Esterase (Negative) Urine WBC (Auto) (0-5) /hpf Urine RBC (Auto) (0-4) /hpf U Hyaline Cast (Auto) (0-5) /lpf U Epithel Cells (Auto) (0-5) /lpf Urine Bacteria (Auto) (Negative) Salicylates < 3.0 L (3.0-30) mg/dl Urine Opiates Screen (Neg) Ur Methadone, Qual (Neg) Acetaminophen < 3 L (10-30) ug/ml Urine Barbiturates (Neg) Ur Phencyclidine (PCP) (Neg) U Amphetamin/Meth Scrn (Neg) MDMA (Ecstasy) Screen (Neg) U Benzodiazepines Scrn (Neg) Ur Cocaine Metabolite (Neg) U Marijuana (THC) Screen (Neg) Ethyl Alcohol mg/dL < 10.0 (<10.0) mg/dl SARS-CoV-2, RNA, NAAT NEGATIVE (NEGATIVE) 05/25/23 05/25/23 Range/Units Unknown Unknown WBC (4.8-10.8) K/ul RBC (4.70-6.10) M/uL Hgb (14.0-18.0) g/dl Hct (42.0-52.0) % MCV (80.0-100.0) fL MCH (25.0-34.0) pg MCHC (32.0-36.0) g/dL RDW Std Deviation (36.4-46.3) fL RDW Coeff of Tawanna (11.5-14.5) % Plt Count (130-400) K/uL MPV (9.4-12.4) fL Immature Gran % (Auto) % Neut % (Auto) % Lymph % (Auto) % [place] % (Auto) % Eos % (Auto) % Baso % (Auto) % Neut # (Auto) (1.40-6.50) K/uL Lymph # (Auto) (1.20-3.40) K/uL [place] # (Auto) (0.11-0.59) K/uL Eos # (Auto) (0.00-0.50) K/uL Baso # (Auto) (0.00-0.20) K/uL Immature Gran # (Auto) (0.01-0.20) K/uL Sodium (136-145) mmol/L Potassium (3.5-5.1) mmol/L Chloride (98-107) mmol/L Carbon Dioxide (21-32) mmol/L Anion Gap (3-11) BUN (6-23) mg/dl Creatinine (0.6-1.4) mg/dl Est Cr Clr Drug Dosing Est GFR ( Amer) ml/min Est GFR (Non-Af Amer) ml/min BUN/Creatinine Ratio (10-20) Glucose (70-99(Fasting)) mg/dl Calcium (8.6-10.3) mg/dl Total Bilirubin (0.2-1.0) mg/dl AST (13-39) U/L ALT (7-52) U/L Alkaline Phosphatase (34-104) U/L Total Protein (6.0-8.3) gm/dl Albumin (3.4-5.0) gm/dl Globulin (2.5-4.0) gm/dl Albumin/Globulin Ratio (0.9-2) TSH (0.300-4.500) uIu/ml Urine Color Dark Yellow Urine Appearance Clear (Clear) Urine pH 6.5 (4.5-7.5) Ur Specific [place] 1.037 H (1.000-1.030) Urine Protein 2+ H (Negative) Urine Glucose (UA) Negative (Negative) Urine Ketones 1+ H (Negative) Urine Blood Negative (Negative) Urine Nitrite Negative (Negative) Urine Bilirubin 1+ H (Negative) Urine Urobilinogen Negative (Negative) Ur Leukocyte Esterase Negative (Negative) Urine WBC (Auto) 1-5 (0-5) /hpf Urine RBC (Auto) 0-4 (0-4) /hpf U Hyaline Cast (Auto) 1-5 (0-5) /lpf U Epithel Cells (Auto) 10-20 H (0-5) /lpf Urine Bacteria (Auto) Negative (Negative) Salicylates (3.0-30) mg/dl Urine Opiates Screen Neg (Neg) Ur Methadone, Qual Neg (Neg) Acetaminophen (10-30) ug/ml Urine Barbiturates Neg (Neg) Ur Phencyclidine (PCP) Neg (Neg) U Amphetamin/Meth Scrn Neg (Neg) MDMA (Ecstasy) Screen Neg (Neg) U Benzodiazepines Scrn Neg (Neg) Ur Cocaine Metabolite Neg (Neg) U Marijuana (THC) Screen Neg (Neg) Ethyl Alcohol mg/dL (<10.0) mg/dl SARS-CoV-2, RNA, NAAT (NEGATIVE) Discharge Plan Visit Data Chief Complaint: Flu Like Symptoms Stated Complaint: SOB,TROUBLE SWALLOWING,IRRITAILITY,COUGH ED Provider: Danii Iverson Discharge Problem: Suicidal ideation Forms Stand Alone Forms: My [facility] Prescriptions Prescriptions: No Action haloperidol decanoate 100 mg/mL solution 150 mg IM Q4WK Qty: 1 0RF clozapine [Clozaril] 200 mg tablet 200 mg PO HS Qty: 7 0RF prazosin 1 mg Capsule 1 mg PO HS Qty: 30 0RF docusate sodium 100 mg Capsule 200 mg PO QAM PRN (Reason: constipation) Qty: 1 0RF Referrals Referrals: Lilibeth Morton MD [Primary Care Provider] -
[2023-05-25 21:07] LABS: Appearance Urine Clear (Clear); Bacteria Urine Automated Negative (Negative); Blood Urine Negative (Negative); Color Urine Dark Yellow; Glucose Urine UA Negative (Negative); Ketones Urine 1+ (Negative); Leukocyte Esterase Urine Negative (Negative); Nitrite Urine Negative (Negative); Protein Urine 2+ (Negative); RBC Urine Automated 0-4 /hpf (0-4); Specific Gravity Urine 1.037 (1.000-1.030); Urobilinogen Urine Negative (Negative); pH Urine 6.5 (4.5-7.5)
[2023-05-25 21:08] LABS: Bilirubin Urine 1+ (Negative)
[2023-05-25 21:26] LABS: Amphetamines+Metham, Urine Neg (Neg); Barbiturates, Urine Neg (Neg); Benzodiazepine, Urine Neg (Neg); Cocaine, Urine Neg (Neg); MDMA (Ecstacy), Urine Neg (Neg); Methadone, Urine Neg (Neg); Opiate, Urine Neg (Neg); Phencyclidine, Urine Neg (Neg)
[2023-05-25 21:38] LABS: Alanine Aminotransferase 18 U/L (7-52); Albumin Globulin Ratio 1.2 (0.9-2); Albumin Level 4.2 gm/dl (3.4-5.0); Alkaline Phosphatase 69 U/L (34-104); Anion Gap 7 (3-11); Aspartate Aminotransferase 22 U/L (13-39); BUN Creatinine Ratio 13.7 (10-20); Bilirubin,Total 0.3 mg/dl (0.2-1.0); Blood Urea Nitrogen 14 mg/dl (6-23); Calcium 9.4 mg/dl (8.6-10.3); Carbon Dioxide 28 mmol/L (21-32); Chloride 104 mmol/L (98-107); Est GFR (African American) 113.8 ml/min; Est GFR (Non-African American) 98.2 ml/min; Globulin 3.6 gm/dl (2.5-4.0); Glucose 113 mg/dl (70-99(Fasting)); Potassium 3.8 mmol/L (3.5-5.1); Sodium 139 mmol/L (136-145); Total Protein 7.8 gm/dl (6.0-8.3)
[2023-05-25 21:39] LABS: Basophils # (auto) 0.03 K/uL (0.00-0.20); Basophils % (auto) 0.3 %; Eosinophils # (auto) 0.09 K/uL (0.00-0.50); Hematocrit (blood only) 37.3 % (42.0-52.0); Hemoglobin 13.1 g/dl (14.0-18.0); Immature Granulocytes # (auto) 0.02 K/uL (0.01-0.20); Immature Granulocytes % (auto) 0.2 %; Lymphocytes % (auto) 25.1 %; Mean Corpuscular Hemoglobin 29.6 pg (25.0-34.0); Mean Corpuscular Hgb Conc 35.1 g/dL (32.0-36.0); Mean Corpuscular Volume 84.4 fL (80.0-100.0); Mean Platelet Volume 10.3 fL (9.4-12.4); Monocytes # (auto) 0.61 K/uL (0.11-0.59); Monocytes % (auto) 6.7 %; Neutrophils # (auto) 6.11 K/uL (1.40-6.50); Neutrophils % (auto) 66.7 %; Platelet Count 403 K/uL (130-400); RDW Coefficient of Variation 14.2 % (11.5-14.5); RDW Standard Deviation 43.7 fL (36.4-46.3); Red Blood Count 4.42 M/uL (4.70-6.10); White Blood Count 9.16 K/ul (4.8-10.8)
[2023-05-25 21:50] LABS: Acetaminophen < 3 ug/ml (10-30); Salicylate < 3.0 mg/dl (3.0-30)
--- NOTE | 2023-05-25 23:07 | Emergency Department Note ---
ED Visit Note This case was signed out to me at change of shift awaiting bed placement. Patient was evaluated by the staff from [facility] [address] and they have accepted him onto their unit. .
[2023-05-26 01:40] LABS: Adenovirus PCR Not Detected (NotDetected); Bordetella parapertussis PCR Not Detected (NotDetected); Bordetella pertussis PCR Not Detected (NotDetected); Chlamydia pneumoniae PCR Not Detected (NotDetected); Coronavirus 229E PCR Not Detected (NotDetected); Coronavirus CoV-2 (COVID19)PCR Not Detected (NotDetected); Coronavirus HKU1 PCR Not Detected (NotDetected); Coronavirus NL63 PCR Not Detected (NotDetected); Coronavirus OC43PCR Not Detected (NotDetected); Human Metapneumovirus PCR Not Detected (NotDetected); Influenza A PCR Not Detected (NotDetected); Influenza B PCR Not Detected (NotDetected); Mycoplasma pneumoniae PCR Not Detected (NotDetected); Parainfluenza Virus 1 PCR Not Detected (NotDetected); Parainfluenza Virus 2 PCR Not Detected (NotDetected); Parainfluenza Virus 3 PCR Not Detected (NotDetected); Parainfluenza Virus 4 PCR Not Detected (NotDetected); Respiratory Syncytial VirusPCR Not Detected (NotDetected); Rhinovirus/Enterovirus PCR Not Detected (NotDetected)
[2023-05-26] MEDS ORDERED: ACETAMINOPHEN 325 MG TAB PO PRN (02:35)
[2023-05-26] MEDS ORDERED: hydrOXYzine HCl 25 MG TAB PO PRN ×2 (02:35)
[2023-05-26] MEDS ORDERED: SODIUM CHLORIDE 0.65% NA SOLN 45 ML (OCEAN) PRN (02:35)
[2023-05-26] MEDS ORDERED: ALUMINUM/MAGNESIUM SUSP 30 ML UDC PO PRN (02:35)
[2023-05-26] MEDS ORDERED: MAGNESIUM HYDROXIDE SUSP 30 ML UDC PO PRN (02:35)
--- NOTE | 2023-05-26 07:11 | XRay Report ---
XR chest 1V portable HISTORY: 32 years-old Male sob acute cough or shortness of breath COMPARISON: 08/06/2020 TECHNIQUE: AP view of the chest FINDINGS: Cardiomediastinal and hilar silhouettes are within normal limits. No pneumothorax, pleural effusion, airspace consolidation or pulmonary edema. The bones appear normal. IMPRESSION: No acute process. ACT 112: Negative or not required by law. The above report was generated using voice recognition software. It may contain grammatical, syntax o r spelling errors. Electronically signed by: Brando Bragg M.D. 05/26/2023 7:09 AM
[2023-05-26] MEDS ORDERED: haloperidoL 5 MG TAB PO PRN (16:36)
[2023-05-26] MEDS ORDERED: LORazepam 1 MG TAB PO PRN (16:40)
--- NOTE | 2023-05-26 16:52 | History & Physical ---
Date of Service May 26, 2023 Impression / Recommendations Impression 32 yo male with long history of paranoid and disorganized behavior, recent hospitalization presents very disorganized and not back to baseline with some evidence of dystonia from current psych med regimen, he hasn't received any meds since discharge. Overall, I spent a total of 48 minutes with this case, including review of chart records, direct evaluation of the patient bedside, counseling the patient, ord ering medication, discussion with staff during rounds, risk assessment, and documentation in the electronic health record. (1) Schizophrenia: Schizophrenia type: paranoid schizophrenia Qualified Code(s): F20.0 - Paranoid schizophrenia Plan The patient was admitted to the [facility] ([facility] inpatient mental health unit) on q15 min checks (behavioral with suicide precautions) for safety. The patient will participate in group, recreational, and milieu therapies and will be offered additional individual and family sessions as clinically appropriate. Would benefit from restart of Clozaril, will need to start Risperdal taper, only got 100 mg Haldol dec, will offer Haldol prn rather than standing until better control of dystonia/dysarthria with Cogentin. Need to confirm his status with [facility] and ability to be monitored again with clozaril and retitrate. hold on fasting labs for now. Inventory Assets Strengths: help seeking, has been receptive to care in the past Needs: reestablish footing in community, management of antipsychotics Suicide Risk Level Suicide Risk Level: Moderate (q15 min suicide checks) Risk Factors Assessment Male: Yes Do You Have Access To A Gun?: No Mental Health Diagnoses: Yes Previous Psychiatric Hospitalization: Yes Protective Factors Assessment Employed: No (varying reports, must clarify) Psychiatric History Identifying Data LEXII TEE is a 32-year-old M who currently states he's homeless, well kn own to from multiple inpatient stays for schizophrenia, and was admitted on 05/26/23 01:45 on a 201 voluntary commitment for SI and disorganized behavior. Chief Complaint "I thought I had COVID and felt whats the point since I got the shot". History of Present Illness Patient was seen in ED in April for being at a bus stop talking to himself and making other strange statements about fighting a war in [place], having an ex- and that he could grow limbs and organs. It was presumed he had been non- compliant with medication and placed at [facility]. Records reports he had some response to Haldol and was administered 100 mg dec (next due 06/19) in addition to PO 15 mg Haldol BID with 3 mg Risperdal BID. He had significant EPS for which he was prescribed Artane 2 mg TID. He reports spending a night in a homeless senior care before using his bus voucher to return to [place]. Today he tells me still has his job at [employer] but otherwise he is between apartments. His speech is dysarthric and he appears tired. He seemed somewhat reassured by his health following swabs for the flu, etc. He insists that he was living in [place] for the past year when I pointed out his last contact with the emergency room was otherwise January 2022 following his inpatient stay. He had been having breakthrough paranoia on Haldol dec and was restarted on clozaril during an extended stay on [facility] that started in November 2021. It is unclear if he is still an active patient with [facility] or [facility]. Patient has been internally preoccupied so far on unit, not pacing earlier but staff just initiated elopement precautions since he was checking the doors. Past Psychiatric History Previous Psych History: Current Psychiatric Diagnosis: Schizophrenia Do You Have Access To A Gun?: No Past Medication Trials: past med trials of Abilify, Seroquel, Zyprexa, thorazine, but not Latuda or Invega; clozaril (he refused to continue last stay), Haldol, Ambien, Cogentin Additional Notes: Current Psychiatric Diagnosis: schizophrenia [facility]; was set up with [facility] last stay Previous Psych Admissions: [facility] 2016 the [facility], was residing in [facility] at one point. [facility] 05/01, 06/02 with some sexually inappropriate comments to female staff; 11/05 [facility], 12/03 [facility]; [place] -05/2023. Do You Have Access To A Gun?: No Describe Attempts in the Past: 1 attempt OD Nyquil ?2016. Current Psychiatric Diagnosis: Schizophrenia Do You Have Access To A Gun?: No History of Previous Suicide Attempt: Yes Allergies Allergy/AdvReac Type Severity Reaction Status Date / Time meloxicam AdvReac blurred Verified 05/26/23 00:01 vision naproxen AdvReac blurred Verified 05/26/23 00:01 vision Home Medications Medication Instructions Recorded Confirmed Type haloperidol decanoate 100 mg/mL 150 mg (1.5 mL) IM Q4WK #1 vial 11/26/21 05/26/23 Rx intramuscular solution docusate sodium 100 mg capsule 200 mg PO QAM PRN constipation #1 01/06/22 05/26/23 Rx cap Family History Family History of: Doesn't Know Alcohol History Hx of Alcohol Use Over the Past 12 Months: No AUDIT Total Score: 0 Smoking Use Have You Smoked or Used Tobacco Products in the Last 30 Days: No tobacco type: cigarettes Smoking Status: Never smoker Substance History Hx of Prescription Med Misuse Over the Past 12 Months: No Hx of Over the Counter Med Misuse Over the Past 12 Months: No Hx of Inhalent Misuse Over the Past 12 Months: No Hx of Organic Substance Use Over the Past 12 Months: No Hx of Illegal Substances/Street Drug Use Over Past 12 Months: No Problems as a Result of Past Substance Use: None Identified Personal History Living Arrangements: Homeless Born In: [facility] Highest Grade Completed: Some College Marital Status: Single Number Of Children: 0 Beliefs That Will Affect Care: None Hx Legal Problems: Yes (Per records, has a history of multiple arrests including felony charges in 2014 and 2016) Hx Traumatic Life Events: Yes Patient History Medical History Alcohol use disorder . 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 Followed by [facility] by Dr. [facility]. Managed with clozapine Schizophrenia Sinus tachycardia Sleep deprivation Somnolence Suicide attempt Weakness generalized Surgical History No history of previous surgery Family History (System 12/11/21 @ 07:05 by Jayleen Gallo) Denies family history of Colon cancer Ovarian cancer Prostate cancer Myocardial infarction Breast cancer Social History Smoking Status: Never smoker Cigarettes Per Day: Patient unresponsive at this time; Hx Alcohol Use: No Hx Substance Use: No Preferred Language: [place] Communication Ability: Effective Visual Impairment: No Limitations Hearing Ability: Normal Manager Furniture Required: No Beliefs That Will Affect Care: None marital status: Single Current Living Situation: Other Current Living Situation Comment: Apartment , see ED admission report current occupational status: employed Feels Safe at Home: Yes Childhood Exposure to Second-Hand Smoke: No Dental Care, Regularly: No Physical Activity Frequency: Does not Exercise Seatbelt Use: always Sunscreen Use: No Gender Identity: Male Assistive Devices: None and Glasses Review of Systems Review of Systems: All systems reviewed & are unremarkable except as noted in HPI & below Physical Exam Vital Signs (Past 24 Hours): Last Vital Signs Temp 36.5 C 05/26/23 06:36 Pulse 101 H 05/26/23 06:37 Resp 16 05/26/23 06:36 BP 127/90 05/26/23 06:37 Pulse Ox 99 05/26/23 02:41 O2 Del Method Room Air 05/26/23 02:41 Exam Statement: A physical exam was performed in the ED by Dr. Tam for the purposes of medical clearance. I accept that physical as correct and adequate for the purposes of the inpatient physical exam. Results & Data ([facility]) Laboratory Results Laboratory Results - last 24 hr 05/25/23 05/25/23 05/25/23 20:42 20:42 20:42 WBC 9.16 RBC 4.42 L Hgb 13.1 L Hct 37.3 L MCV 84.4 MCH 29.6 MCHC 35.1 RDW Std Deviation 43.7 RDW Coeff of Tawanna 14.2 Plt Count 403 H MPV 10.3 Immature Gran % (Auto) 0.2 Neut % (Auto) 66.7 Lymph % (Auto) 25.1 [place] % (Auto) 6.7 Eos % (Auto) 1.0 Baso % (Auto) 0.3 Neut # (Auto) 6.11 Lymph # (Auto) 2.30 [place] # (Auto) 0.61 H Eos # (Auto) 0.09 Baso # (Auto) 0.03 Immature Gran # (Auto) 0.02 Sodium 139 Potassium 3.8 Chloride 104 Carbon Dioxide 28 Anion Gap 7 BUN 14 Creatinine 1.02 Est Cr Clr Drug Dosing Not Reportable Est GFR ( Amer) 113.8 Est GFR (Non-Af Amer) 98.2 BUN/Creatinine Ratio 13.7 Glucose 113 H Calcium 9.4 Total Bilirubin 0.3 AST 22 ALT 18 Alkaline Phosphatase 69 Total Protein 7.8 Albumin 4.2 Globulin 3.6 Albumin/Globulin Ratio 1.2 TSH 1.412 Urine Color Urine Appearance Urine pH Ur Specific [place] Urine Protein Urine Glucose (UA) Urine Ketones Urine Blood Urine Nitrite Urine Bilirubin Urine Urobilinogen Ur Leukocyte Esterase Urine WBC (Auto) Urine RBC (Auto) U Hyaline Cast (Auto) U Epithel Cells (Auto) Urine Bacteria (Auto) Salicylates Urine Opiates Screen Ur Methadone, Qual Acetaminophen Urine Barbiturates Ur Phencyclidine (PCP) U Amphetamin/Meth Scrn MDMA (Ecstasy) Screen U Benzodiazepines Scrn Ur Cocaine Metabolite U Marijuana (THC) Screen Ethyl Alcohol mg/dL Adenovirus (PCR) B. pertussis DNA (PCR) B.parapertussis DNA PCR C. pneumoniae DNA (PCR) Coronavirus OC43 (PCR) Coronavirus HKU1 (PCR) Coronavirus 229E (PCR) SARS-CoV-2 (PCR) Coronavirus NL63 (PCR) Human Metapneumovir PCR Influenza Type A (PCR) Influenza Type B (PCR) M. pneumoniae (PCR) Parainfluenza 1 (PCR) Parainfluenza 2 (PCR) Parainfluenza 3 (PCR) Parainfluenza 4 (PCR) RSV (PCR) Entero/Rhino (PCR) SARS-CoV-2, RNA, NAAT 05/25/23 05/25/23 05/25/23 20:42 20:42 20:42 WBC RBC Hgb Hct MCV MCH MCHC RDW Std Deviation RDW Coeff of Tawanna Plt Count MPV Immature Gran % (Auto) Neut % (Auto) Lymph % (Auto) [place] % (Auto) Eos % (Auto) Baso % (Auto) Neut # (Auto) Lymph # (Auto) [place] # (Auto) Eos # (Auto) Baso # (Auto) Immature Gran # (Auto) Sodium Potassium Chloride Carbon Dioxide Anion Gap BUN Creatinine Est Cr Clr Drug Dosing Est GFR ( Amer) Est GFR (Non-Af Amer) BUN/Creatinine Ratio Glucose Calcium Total Bilirubin AST ALT Alkaline Phosphatase Total Protein Albumin Globulin Albumin/Globulin Ratio TSH Urine Color Urine Appearance Urine pH Ur Specific [place] Urine Protein Urine Glucose (UA) Urine Ketones Urine Blood Urine Nitrite Urine Bilirubin Urine Urobilinogen Ur Leukocyte Esterase Urine WBC (Auto) Urine RBC (Auto) U Hyaline Cast (Auto) U Epithel Cells (Auto) Urine Bacteria (Auto) Salicylates < 3.0 L Urine Opiates Screen Ur Methadone, Qual Acetaminophen < 3 L Urine Barbiturates Ur Phencyclidine (PCP) U Amphetamin/Meth Scrn MDMA (Ecstasy) Screen U Benzodiazepines Scrn Ur Cocaine Metabolite U Marijuana (THC) Screen Ethyl Alcohol mg/dL < 10.0 Adenovirus (PCR) B. pertussis DNA (PCR) B.parapertussis DNA PCR C. pneumoniae DNA (PCR) Coronavirus OC43 (PCR) Coronavirus HKU1 (PCR) Coronavirus 229E (PCR) SARS-CoV-2 (PCR) Coronavirus NL63 (PCR) Human Metapneumovir PCR Influenza Type A (PCR) Influenza Type B (PCR) M. pneumoniae (PCR) Parainfluenza 1 (PCR) Parainfluenza 2 (PCR) Parainfluenza 3 (PCR) Parainfluenza 4 (PCR) RSV (PCR) Entero/Rhino (PCR) SARS-CoV-2, RNA, NAAT NEGATIVE 05/25/23 05/25/23 05/26/23 Unknown Unknown Unknown WBC RBC Hgb Hct MCV MCH MCHC RDW Std Deviation RDW Coeff of Tawanna Plt Count MPV Immature Gran % (Auto) Neut % (Auto) Lymph % (Auto) [place] % (Auto) Eos % (Auto) Baso % (Auto) Neut # (Auto) Lymph # (Auto) [place] # (Auto) Eos # (Auto) Baso # (Auto) Immature Gran # (Auto) Sodium Potassium Chloride Carbon Dioxide Anion Gap BUN Creatinine Est Cr Clr Drug Dosing Est GFR ( Amer) Est GFR (Non-Af Amer) BUN/Creatinine Ratio Glucose Calcium Total Bilirubin AST ALT Alkaline Phosphatase Total Protein Albumin Globulin Albumin/Globulin Ratio TSH Urine Color Dark Yellow Urine Appearance Clear Urine pH 6.5 Ur Specific [place] 1.037 H Urine Protein 2+ H Urine Glucose (UA) Negative Urine Ketones 1+ H Urine Blood Negative Urine Nitrite Negative Urine Bilirubin 1+ H Urine Urobilinogen Negative Ur Leukocyte Esterase Negative Urine WBC (Auto) 1-5 Urine RBC (Auto) 0-4 U Hyaline Cast (Auto) 1-5 U Epithel Cells (Auto) 10-20 H Urine Bacteria (Auto) Negative Salicylates Urine Opiates Screen Neg Ur Methadone, Qual Neg Acetaminophen Urine Barbiturates Neg Ur Phencyclidine (PCP) Neg U Amphetamin/Meth Scrn Neg MDMA (Ecstasy) Screen Neg U Benzodiazepines Scrn Neg Ur Cocaine Metabolite Neg U Marijuana (THC) Screen Neg Ethyl Alcohol mg/dL Adenovirus (PCR) Not Detected B. pertussis DNA (PCR) Not Detected B.parapertussis DNA PCR Not Detected C. pneumoniae DNA (PCR) Not Detected Coronavirus OC43 (PCR) Not Detected Coronavirus HKU1 (PCR) Not Detected Coronavirus 229E (PCR) Not Detected SARS-CoV-2 (PCR) Not Detected Coronavirus NL63 (PCR) Not Detected Human Metapneumovir PCR Not Detected Influenza Type A (PCR) Not Detected Influenza Type B (PCR) Not Detected M. pneumoniae (PCR) Not Detected Parainfluenza 1 (PCR) Not Detected Parainfluenza 2 (PCR) Not Detected Parainfluenza 3 (PCR) Not Detected Parainfluenza 4 (PCR) Not Detected RSV (PCR) Not Detected Entero/Rhino (PCR) Not Detected SARS-CoV-2, RNA, NAAT Current Inpatient Medications Current Inpatient Medications: Current Inpatient Medications Acetaminophen (Acetaminophen 325 Mg Tab) 650 mg PO Q4H PRN PRN Reason: Headache or Minor Fever Stop: 06/25/23 02:34 Al Hydrox/Mg Hydrox/Simethicone (Aluminum/Magnesium Susp 30 Ml Udc) 30 ml PO Q4H PRN PRN Reason: GI Upset Stop: 06/25/23 02:34 Benztropine Mesylate (Benztropine Mesylate 1 Mg Tab) 1 mg PO BID LINO Stop: 06/25/23 16:39 Haloperidol (Haloperidol 5 Mg Tab) 5 mg PO Q4 PRN PRN Reason: Anxiety/Agitation Stop: 06/25/23 16:35 Lorazepam (Lorazepam 1 Mg Tab) 1 mg PO Q4 PRN PRN Reason: Anxiety Stop: 06/25/23 16:39 Magnesium Hydroxide (Magnesium Hydroxide Susp 30 Ml Udc) 30 ml PO DAILY PRN PRN Reason: Constipation Stop: 06/25/23 02:34 Risperidone (Risperidone 2 Mg Tablet) 2 mg PO BID LINO Stop: 06/25/23 16:39 Sodium Chloride (Sodium Chloride 0.65% Na Soln 45 Ml ([place])) 1 - 2 sprays NA PRN PRN PRN Reason: Nasal Dryness/Congestion Stop: 06/25/23 02:34
[2023-05-26] MEDS: BENZTROPINE MESYLATE 1 MG TAB PO SCH ×2 (17:34→21:13)
[2023-05-26] MEDS: risperiDONE 2 MG TABLET PO SCH ×2 (17:34→21:13)
--- NOTE | 2023-05-27 06:44 | Psychiatric Progress Note ---
Date of Service May 27, 2023 Impression / Recommendations Impression 32 yo male with long history of paranoid and disorganized behavior, recent hospitalization presents very disorganized and not back to baseline with some evidence of dystonia from current psych med regimen, he hasn't received any meds since discharge. 05/27/2023: less EPS, ongoing delusions Overall, I spent a total of 32 minutes with this case, including direct evaluation of the patient, counseling the patient, ordering medication, discussion with staff during rounds, and documentation in the electronic health record. (1) Schizophrenia: Plan 05/27/2023: the patient has historically done best with clozaril and will begin when confirm housing, status with [facility], and ability to continue rx with [facility]. 05/26/2023: The patient was admitted to the [facility] ([facility] mental health unit) on q15 min checks (behavioral with suicide precautions) for safety. The patient will participate in group, recreational, and milieu therapies and will be offered additional individual and family sessions as clinically appropriate. Would benefit from restart of Clozaril, will need to start Risperdal taper, only got 100 mg Haldol dec, will offer Haldol prn rather than standing until better control of dystonia/dysarthria with Cogentin. Need to confirm his status with [facility] and ability to be monitored again with clozaril and retitrate. hold on fasting labs for now. Inventory Assets Strengths: help seeking, has been receptive to care in the past Needs: reestablish footing in community, management of antipsychotics Suicide Risk Level Suicide Risk Level: Moderate (q15 min suicide checks) Risk Factors Assessment Male: Yes Do You Have Access To A Gun?: No Mental Health Diagnoses: Yes Previous Psychiatric Hospitalization: Yes Protective Factors Assessment Employed: No (varying reports, must clarify) Interval History Identifying Information LEXII TEE is a 32-year-old M who currently states he's homeless, well known to from multiple inpatient stays for schizophrenia, and was admitted on 05/26/23 01:45 on a 201 voluntary commitment for SI and disorganized behavior. Chief Complaint remains disorganized. Review of Systems Sleep Information Total Hours of Sleep: 7.75 Sleep Comments: new admit at 0230 Meal Information Percent Meal Consumed - Breakfast: 0 Percent Meal Consumed - Lunch: 100 Percent Meal Consumed - Dinner: 100 Nutrition Comment: pt. allowed to rest. meal dated, labeled and refrigerated. Subjective Subjective Patient was seen & assessed and interval progress reviewed with treatment team. makes statements about being birthed by bears and [place] being cold. He appears more alert today and clearer speech. He does walk laps in the hallways. His affect remains flat in interactions. Tolerating only brief interactions. Physical Exam Psychiatric Orientation: alert, oriented to person and oriented to place Apperance: appropriately groomed Eye Contact: + fair eye contact Motor Behavior: no abnormal motor movements Speech: + abnormal rate/rhythm/volume of speech non spontaneous Affect: + blunted affect Mood: + depressed mood Thought Process: + tangential thought process Thought Content: + delusions Suicidal Thoughts: denies suicidal thoughts Homicidal Thoughts: denies homicidal thoughts Hallucinations: no auditory hallucinations and no visual hallucinations Cognition: language grossly intact; + attention not intact Insight: + poor insight Judgment: + poor judgement Vital Signs (Past 24 Hours) Last Vital Signs Temp 36.5 C 05/26/23 06:36 Pulse 101 H 05/26/23 06:37 Resp 16 05/26/23 06:36 BP 127/90 05/26/23 06:37 Pulse Ox 99 05/26/23 02:41 O2 Del Method Room Air 05/26/23 02:41 Results & Data (U) Current Inpatient Medications Current Inpatient Medications: Current Inpatient Medications Acetaminophen (Acetaminophen 325 Mg Tab) 650 mg PO Q4H PRN PRN Reason: Headache or Minor Fever Stop: 06/25/23 02:34 Al Hydrox/Mg Hydrox/Simethicone (Aluminum/Magnesium Susp 30 Ml Udc) 30 ml PO Q4H PRN PRN Reason: GI Upset Stop: 06/25/23 02:34 Benztropine Mesylate (Benztropine Mesylate 1 Mg Tab) 1 mg PO BID LINO Stop: 06/25/23 16:39 Last Admin: 05/26/23 21:13 Dose: 1 mg Haloperidol (Haloperidol 5 Mg Tab) 5 mg PO Q4 PRN PRN Reason: Anxiety/Agitation Stop: 06/25/23 16:35 Lorazepam (Lorazepam 1 Mg Tab) 1 mg PO Q4 PRN PRN Reason: Anxiety Stop: 06/25/23 16:39 Magnesium Hydroxide (Magnesium Hydroxide Susp 30 Ml Udc) 30 ml PO DAILY PRN PRN Reason: Constipation Stop: 06/25/23 02:34 Risperidone (Risperidone 2 Mg Tablet) 2 mg PO BID LINO Stop: 06/25/23 16:39 Last Admin: 05/26/23 21:13 Dose: 2 mg Sodium Chloride (Sodium Chloride 0.65% Na Soln 45 Ml ([place])) 1 - 2 sprays NA PRN PRN PRN Reason: Nasal Dryness/Congestion Stop: 06/25/23 02:34 Mental Health & Subst Abuse Tx Therapist Name of Therapist: N/A was supposed to follow w/ [facility] Name of [facility]: N/A but "would like to get it set up" (1) Schizophrenia Schizophrenia type: paranoid schizophrenia Qualified Code(s): F20.0 - Paranoid schizophrenia
[2023-05-27] MEDS: BENZTROPINE MESYLATE 1 MG TAB PO SCH ×2 (08:53→21:07)
[2023-05-27] MEDS: risperiDONE 2 MG TABLET PO SCH ×2 (08:53→17:36)
[2023-05-27] MEDS ORDERED: cloZAPine 25 MG TAB PO SCH (22:00)
[2023-05-28] MEDS: BENZTROPINE MESYLATE 1 MG TAB PO SCH ×2 (08:51→21:04)
[2023-05-28] MEDS: risperiDONE 2 MG TABLET PO SCH ×2 (08:51→17:15)
--- NOTE | 2023-05-28 14:49 | Psychiatric Progress Note ---
Date of Service May 28, 2023 Impression / Recommendations Impression 32 yo male with long history of paranoid and disorganized behavior, recent hospitalization presents very disorganized and not back to baseline with some evidence of dystonia from current psych med regimen, he hasn't received any meds since discharge. 05/28/2023: ongoing delusions, unable to care for self outside of the hospital Overall, I spent a total of 25 minutes with this case, including direct evaluat ion of the patient, counseling the patient, ordering medication, discussion with staff during rounds, and documentation in the electronic health record. (1) Schizophrenia: Plan 05/28/2023: increase clozaril to 50 mg qhs, when get to 100 mg will taper Risperdal further, in meantime Cogentin is helpful. Next Haldol dec will be due 06/19 and likely give 150 mg if Risperdal tapered by then/EPS remains manageable. 05/27/2023: the patient has historically done best with clozaril and will begin when confirm housing, status with CM, and ability to continue rx with [facility]. 05/26/2023: The patient was admitted to the [facility] ([facility] mental health unit) on q15 min checks (behavioral with suicide precautions) for safety. The patient will participate in group, recreational, and milieu therapies and will be offered additional individual and family sessions as clinically appropriate. Would benefit from restart of Clozaril, will need to start Risperdal taper, only got 100 mg Haldol dec, will offer Haldol prn rather than standing until better control of dystonia/dysarthria with Cogentin. Need to confirm his status with [facility] and ability to be monitored again with clozaril and retitrate. hold on fasting labs for now. Inventory Assets Strengths: help seeking, has been receptive to care in the past Needs: reestablish footing in community, management of antipsychotics Suicide Risk Level Suicide Risk Level: Moderate (q15 min suicide checks) Risk Factors Assessment Male: Yes Do You Have Access To A Gun?: No Mental Health Diagnoses: Yes Previous Psychiatric Hospitalization: Yes Protective Factors Assessment Employed: No (varying reports, must clarify) Interval History Identifying Information LEXII TEE is a 32-year-old M who currently states he's homeless, well known to from multiple inpatient stays for schizophrenia, and was admitted on 05/26/23 01:45 on a 201 voluntary commitment for SI and disorganized behavior. Chief Complaint "I told them I'm 32, not 16, that was a dream after I hit my head." Review of Systems Sleep Information Total Hours of Sleep: 6 Sleep Comments: new admit at 0230 Meal Information Percent Meal Consumed - Breakfast: 100 Percent Meal Consumed - Lunch: 100 Percent Meal Consumed - Dinner: 100 Nutrition Comment: pt. allowed to rest. meal dated, labeled and refrigerated. Subjective Subjective Patient was seen & assessed and interval progress reviewed with nursing and social work. Cooperative with unit routine, does appear he was living in [place] for a year, last records from [facility] from 01/2022. Was doing well on clozaril 200 mg hs and haldol dec 150 mg at that time with metformin to assist with weight gain. rereviewed risks/benefits of clozaril with patient and he is agreeable to "get back on what helped me." tolerated first dose last night. Physical Exam Psychiatric Orientation: alert, oriented to person and oriented to place Apperance: appropriately groomed Eye Contact: + fair eye contact Motor Behavior: no abnormal motor movements Speech: + abnormal rate/rhythm/volume of speech Affect: + blunted affect Mood: + depressed mood Thought Process: + tangential thought process Thought Content: + delusions Suicidal Thoughts: denies suicidal thoughts Homicidal Thoughts: denies homicidal thoughts Hallucinations: no auditory hallucinations and no visual hallucinations Cognition: language grossly intact; + attention not intact Insight: + poor insight Judgment: + poor judgement Vital Signs (Past 24 Hours) Last Vital Signs Temp 36.8 C 05/28/23 06:41 Pulse 75 05/28/23 06:41 Resp 16 05/28/23 06:41 BP 101/65 05/28/23 06:41 Pulse Ox 99 05/26/23 02:41 O2 Del Method Room Air 05/26/23 02:41 Results & Data (U) Current Inpatient Medications Current Inpatient Medications: Current Inpatient Medications Acetaminophen (Acetaminophen 325 Mg Tab) 650 mg PO Q4H PRN PRN Reason: Headache or Minor Fever Stop: 06/25/23 02:34 Al Hydrox/Mg Hydrox/Simethicone (Aluminum/Magnesium Susp 30 Ml Udc) 30 ml PO Q4H PRN PRN Reason: GI Upset Stop: 06/25/23 02:34 Benztropine Mesylate (Benztropine Mesylate 1 Mg Tab) 1 mg PO BID LINO Stop: 06/25/23 16:39 Last Admin: 05/28/23 08:51 Dose: 1 mg Clozapine (Clozapine 25 Mg Tab) 25 mg PO HS LINO Stop: 06/26/23 21:59 Last Admin: 05/27/23 21:07 Dose: 25 mg Haloperidol (Haloperidol 5 Mg Tab) 5 mg PO Q4 PRN PRN Reason: Anxiety/Agitation Stop: 06/25/23 16:35 Lorazepam (Lorazepam 1 Mg Tab) 1 mg PO Q4 PRN PRN Reason: Anxiety Stop: 06/25/23 16:39 Magnesium Hydroxide (Magnesium Hydroxide Susp 30 Ml Udc) 30 ml PO DAILY PRN PRN Reason: Constipation Stop: 06/25/23 02:34 Risperidone (Risperidone 2 Mg Tablet) 2 mg PO BIDM LINO Stop: 06/26/23 17:44 Last Admin: 05/28/23 08:51 Dose: 2 mg Sodium Chloride (Sodium Chloride 0.65% Na Soln 45 Ml ([place])) 1 - 2 sprays NA PRN PRN PRN Reason: Nasal Dryness/Congestion Stop: 06/25/23 02:34 Mental Health & Subst Abuse Tx Psychiatrist Name of Psychiatrist: Katie Wilson PA-C Psychiatrist's Date Of Appointment With Psychiatric Provider: 07/01/21 Time of Appointment with Psychiatrist: 2:30pm Therapist Name of Therapist: N/A was supposed to follow w/ Katie Information Technology Assistant Name of Information Technology Assistant: N/A but "would like to get it set up" (1) Schizophrenia Schizophrenia type: paranoid schizophrenia Qualified Code(s): F20.0 - Paranoid schizophrenia
[2023-05-28] MEDS ORDERED: cloZAPine 25 MG TAB PO SCH (22:00)
[2023-05-29] MEDS: risperiDONE 2 MG TABLET PO SCH (08:59)
[2023-05-29] MEDS: BENZTROPINE MESYLATE 1 MG TAB PO SCH ×2 (08:59→21:10)
--- NOTE | 2023-05-29 10:55 | Psychiatric Progress Note ---
Date of Service May 29, 2023 Impression / Recommendations Impression 32 yo male with long history of paranoid and disorganized behavior, recent hospitalization presents very disorganized and not back to baseline with some evidence of dystonia from current psych med regimen, he hasn't received any meds since discharge. 05/29/2023: ongoing negative symptoms, less EPS, appears sedated, unable to care for self outside of the hospital Overall, I spent a total of 36 minutes with this case, including direct evaluation of the patient, counseling the patient, ordering medication, discussion with staff during rounds, and documentation in the electronic health record. (1) Schizophrenia: Plan 05/29/2023: increase clozaril to 75 mg po qhs, given daytime fatigue will decrease Risperdal to 1 mg BID. fasting labs ordered for next CBC on 03/31. 05/28/2023: increase clozaril to 50 mg qhs, when get to 100 mg will taper Risperdal further, in meantime Cogentin is helpful. Next Haldol dec will be due 06/19 and likely give 150 mg if Risperdal tapered by then/EPS remains manageable. 05/27/2023: the patient has historically done best with clozaril and will begin when confirm housing, status with CM, and ability to continue rx with [facility]. 05/26/2023: The patient was admitted to the [facility] ([facility] mental health unit) on q15 min checks (behavioral with suicide precautions) for safety. The patient will participate in group, recreational, and milieu therapies and will be offered additional individual and family sessions as clinically appropriate. Would benefit from restart of Clozaril, will need to start Risperdal taper, only got 100 mg Haldol dec, will offer Haldol prn rather than standing until better control of dystonia/dysarthria with Cogentin. Need to confirm his status with [facility] and ability to be monitored again with clozaril and retitrate. hold on fasting labs for now. Inventory Assets Strengths: help seeking, has been receptive to care in the past Needs: reestablish footing in community, management of antipsychotics Suicide Risk Level Suicide Risk Level: Moderate (q15 min suicide checks) Risk Factors Assessment Male: Yes Do You Have Access To A Gun?: No Mental Health Diagnoses: Yes Previous Psychiatric Hospitalization: Yes Protective Factors Assessment Employed: No (varying reports, must clarify) Interval History Identifying Information LEXII TEE is a 32-year-old M who currently states he's homeless, well known to [facility] from multiple inpatient stays for schizophrenia, and was admitted on 05/26/23 01:45 on a 201 voluntary commitment for SI and disorganized behavior. Chief Complaint more isolative than last stay Review of Systems Sleep Information Total Hours of Sleep: 7.25 Sleep Comments: new admit at 0230 Meal Information Percent Meal Consumed - Breakfast: 100 Percent Meal Consumed - Lunch: 100 Percent Meal Consumed - Dinner: 100 Subjective Subjective Patient was seen & assessed and interval progress reviewed with treatment team. Patient will walk with rec therapist and rate his mood in group. He is not responding to internal stimuli but not very interactive, appears flat. Says he is depressed with ongoing SI last pm but likely a factor of staff now wearing masks again due to update in hospital mask policy which reminds him of COVID. Physical Exam Psychiatric Orientation: alert, oriented to person and oriented to place Apperance: appropriately groomed Eye Contact: + fair eye contact Motor Behavior: no abnormal motor movements Speech: + abnormal rate/rhythm/volume of speech Affect: + blunted affect Mood: + depressed mood Thought Process: + tangential thought process Thought Content: + delusions Suicidal Thoughts: denies suicidal thoughts Homicidal Thoughts: denies homicidal thoughts Hallucinations: no auditory hallucinations and no visual hallucinations Cognition: language grossly intact; + attention not intact Insight: + poor insight Judgment: + poor judgement Vital Signs (Past 24 Hours) Last Vital Signs Temp 36.9 C 05/29/23 06:37 Pulse 71 05/29/23 06:38 Resp 16 05/29/23 06:37 BP 124/83 05/29/23 06:38 Pulse Ox 99 05/26/23 02:41 O2 Del Method Room Air 05/26/23 02:41 Results & Data (U) Current Inpatient Medications Current Inpatient Medications: Current Inpatient Medications Acetaminophen (Acetaminophen 325 Mg Tab) 650 mg PO Q4H PRN PRN Reason: Headache or Minor Fever Stop: 06/25/23 02:34 Al Hydrox/Mg Hydrox/Simethicone (Aluminum/Magnesium Susp 30 Ml Udc) 30 ml PO Q4H PRN PRN Reason: GI Upset Stop: 06/25/23 02:34 Benztropine Mesylate (Benztropine Mesylate 1 Mg Tab) 1 mg PO BID LINO Stop: 06/25/23 16:39 Last Admin: 05/29/23 08:59 Dose: 1 mg Clozapine (Clozapine 25 Mg Tab) 50 mg PO HS LINO; Protocol Stop: 06/27/23 21:59 Last Admin: 05/28/23 21:04 Dose: 50 mg Haloperidol (Haloperidol 5 Mg Tab) 5 mg PO Q4 PRN PRN Reason: Anxiety/Agitation Stop: 06/25/23 16:35 Lorazepam (Lorazepam 1 Mg Tab) 1 mg PO Q4 PRN PRN Reason: Anxiety Stop: 06/25/23 16:39 Magnesium Hydroxide (Magnesium Hydroxide Susp 30 Ml Udc) 30 ml PO DAILY PRN PRN Reason: Constipation Stop: 06/25/23 02:34 Risperidone (Risperidone 2 Mg Tablet) 2 mg PO BIDM LINO Stop: 06/26/23 17:44 Last Admin: 05/29/23 08:59 Dose: 2 mg Sodium Chloride (Sodium Chloride 0.65% Na Soln 45 Ml ([place])) 1 - 2 sprays NA PRN PRN PRN Reason: Nasal Dryness/Congestion Stop: 06/25/23 02:34 Mental Health & Subst Abuse Tx Psychiatrist Name of Psychiatrist: Katie Wilson PA-C Psychiatrist's Date Of Appointment With Psychiatric Provider: 07/01/21 Time of Appointment with Psychiatrist: 2:30pm Therapist Name of Therapist: N/A was supposed to follow w/ Katie Welt Wheeler Name of Welt Wheeler: N/A but "would like to get it set up" (1) Schizophrenia Schizophrenia type: paranoid schizophrenia Qualified Code(s): F20.0 - Paranoid schizophrenia
[2023-05-29] MEDS: risperiDONE 1 MG TABLET PO SCH (17:29)
[2023-05-29] MEDS: cloZAPine 25 MG TAB PO SCH (21:10)
[2023-05-30] MEDS: BENZTROPINE MESYLATE 1 MG TAB PO SCH ×2 (08:58→21:14)
[2023-05-30] MEDS: risperiDONE 1 MG TABLET PO SCH (08:58)
--- NOTE | 2023-05-30 11:46 | Psychiatric Progress Note ---
Date of Service May 30, 2023 Impression / Recommendations Impression 32 yo man with history of schizophrenia with long history of paranoid and disorganized behavior, recent hospitalization who presents with ongoing disorganization and no safe disposition. 05/30/2023: reviewed interim progress per Dr. Vale's notes. Ongoing goal of reducing psychiatric polypharmacy to reduce negative symptoms and EPS. Some improvement in reality-testing, tolerating clozapine. Remains unable to care for self outside of hospital and without any safe disposition placement options. Overall, I spent a total of 35 minutes with this case including review of chart records, direct evaluation of the patient at bedside, counseling the patient, discussion during interdisciplinary treatment rounds, risk assessment, and documentation in the electronic health record. (1) Schizophrenia: Plan 05/30/2023: Continue with clozapine 75mg HS po. Taper risperidone to 0.5mg BID. ANC check for 03/31 and fasting glucose and lipid panel ordered. 05/29/2023: increase clozaril to 75 mg po qhs, given daytime fatigue will decrease Risperdal to 1 mg BID. fasting labs ordered for next CBC on 03/31. 05/28/2023: increase clozaril to 50 mg qhs, when get to 100 mg will taper Risperdal further, in meantime Cogentin is helpful. Next Haldol dec will be due 06/19 and likely give 150 mg if Risperdal tapered by then/EPS remains manageable. 05/27/2023: the patient has historically done best with clozaril and will begin when confirm housing, status with CM, and ability to continue rx with [facility]. 05/26/2023: The patient was admitted to the [facility] ([facility] mental health unit) on q15 min checks (behavioral with suicide precautions) for safety. The patient will participate in group, recreational, and milieu therapies and will be offered additional individual and family sessions as clinically appropriate. Would benefit from restart of Clozaril, will need to start Risperdal taper, only got 100 mg Haldol dec, will offer Haldol prn rather than standing until better control of dystonia/dysarthria with Cogentin. Need to confirm his status with [facility] and ability to be monitored again with clozaril and retitrate. hold on fasting labs for now. Inventory Assets Strengths: help seeking, has been receptive to care in the past Needs: reestablish footing in community, management of antipsychotics Suicide Risk Level Suicide Risk Level: Moderate (q15 min suicide checks) (SI prior to admission and depressed mood, mood improving but still with intermittent SI but feels safe in the hospital and no plan, agrees to let staff know if he feels unable to remain safe or requires additional support) Risk Factors Assessment Male: Yes Do You Have Access To A Gun?: No Mental Health Diagnoses: Yes Previous Psychiatric Hospitalization: Yes Protective Factors Assessment Employed: No (varying reports, must clarify) Interval History Identifying Information LEXII TEE is a 32-year-old M who currently states he's homeless, well known to [facility] from multiple inpatient stays for schizophrenia, and was admitted on 05/26/23 01:45 on a 201 voluntary commitment for SI and disorganized behavior. Chief Complaint "What did my dream feel so real". Review of Systems Sleep Information Total Hours of Sleep: 5 Sleep Comments: Meal Information Percent Meal Consumed - Breakfast: 100 Percent Meal Consumed - Lunch: 100 Percent Meal Consumed - Dinner: 100 Nutrition Comment: Subjective Subjective Patient was seen & assessed and interval progress reviewed with treatment team nursing and social work. Attending some groups, otherwise isolative. Reports "ok" mood. Feels his mood is improving a little after discovering that "I am 32 years old not 16 or 17 like my dream made me believe and I know now I wasn't in the [place] ". He reports he recently felt these things were real due to a dream that persisted and made him believe it was true. He's glad he doesn't feel like that now. Still with periods of SI which he attributes to concerns about COVID infection, he's not reassured by his negative test result. Worries about COVID when he experiences cold symptoms. He's tolerating medication changes, reports some fatigue from clozapine. Physical Exam Psychiatric Orientation: alert and oriented x 3 Apperance: appropriately groomed Eye Contact: + fair eye contact Motor Behavior: no abnormal motor movements Speech: + abnormal rate/rhythm/volume of speech (slow, stutters at times) Affect: + blunted affect Mood: + depressed mood Thought Process: + tangential thought process Thought Content: + delusions (but better able to reality-test some today, still with COVID concerns) Suicidal Thoughts: denies suicidal plan and denies suicidal intent; + reports suicidal thoughts (intermittent SI) Homicidal Thoughts: denies homicidal thoughts Hallucinations: no auditory hallucinations and no visual hallucinations Cognition: attention grossly intact and language grossly intact Insight: + poor insight Judgment: + limited judgement Vital Signs (Past 24 Hours) Last Vital Signs Temp 36.6 C 05/30/23 06:41 Pulse 75 05/30/23 06:41 Resp 16 05/30/23 06:41 BP 110/69 05/30/23 06:41 Pulse Ox 97 05/30/23 06:41 O2 Del Method Room Air 05/30/23 06:41 Results & Data ([facility]) Current Inpatient Medications Current Inpatient Medications: Current Inpatient Medications Acetaminophen (Acetaminophen 325 Mg Tab) 650 mg PO Q4H PRN PRN Reason: Headache or Minor Fever Stop: 06/25/23 02:34 Al Hydrox/Mg Hydrox/Simethicone (Aluminum/Magnesium Susp 30 Ml Udc) 30 ml PO Q4H PRN PRN Reason: GI Upset Stop: 06/25/23 02:34 Benztropine Mesylate (Benztropine Mesylate 1 Mg Tab) 1 mg PO BID LINO Stop: 06/25/23 16:39 Last Admin: 05/30/23 08:58 Dose: 1 mg Clozapine (Clozapine 25 Mg Tab) 75 mg PO HS LINO; Protocol Stop: 06/28/23 21:59 Last Admin: 05/29/23 21:10 Dose: 75 mg Haloperidol (Haloperidol 5 Mg Tab) 5 mg PO Q4 PRN PRN Reason: Anxiety/Agitation Stop: 06/25/23 16:35 Lorazepam (Lorazepam 1 Mg Tab) 1 mg PO Q4 PRN PRN Reason: Anxiety Stop: 06/25/23 16:39 Magnesium Hydroxide (Magnesium Hydroxide Susp 30 Ml Udc) 30 ml PO DAILY PRN PRN Reason: Constipation Stop: 06/25/23 02:34 Risperidone (Risperidone 1 Mg Tablet) 1 mg PO BIDM LINO Stop: 06/28/23 17:44 Last Admin: 05/30/23 08:58 Dose: 1 mg Sodium Chloride (Sodium Chloride 0.65% Na Soln 45 Ml ([place])) 1 - 2 sprays NA PRN PRN PRN Reason: Nasal Dryness/Congestion Stop: 06/25/23 02:34 Mental Health & Subst Abuse Tx Psychiatrist Name of Psychiatrist: Katie Wilson PA-C Psychiatrist's Date Of Appointment With Psychiatric Provider: 07/01/21 Time of Appointment with Psychiatrist: 2:30pm Therapist Name of Therapist: N/A was supposed to follow w/ Katie Barge Worker Name of Barge Worker: N/A but "would like to get it set up" (1) Schizophrenia Schizophrenia type: paranoid schizophrenia Qualified Code(s): F20.0 - Paranoid schizophrenia
[2023-05-30] MEDS: risperiDONE 0.5 MG TABLET PO SCH (17:34)
[2023-05-30] MEDS: cloZAPine 25 MG TAB PO SCH (21:14)
[2023-05-31] MEDS: risperiDONE 0.5 MG TABLET PO SCH (08:49)
[2023-05-31] MEDS: BENZTROPINE MESYLATE 1 MG TAB PO SCH ×2 (08:49→21:30)
--- NOTE | 2023-05-31 09:30 | Psychiatric Progress Note ---
Date of Service May 31, 2023 Impression / Recommendations Impression 32 yo man with history of schizophrenia with long history of paranoid and disorganized behavior, recent hospitalization who presents with ongoing disorganization and no safe disposition. 05/31/2023: Improving insight and lessening of depression and SI with lessening of delusions, seems to be benefiting from clozapine. Continue with taper of risperidone to discontinuation, he is agreeable to clozapine increase. Remains unable to care for self outside of hospital and without any safe disposition placement options. Overall, I spent a total of 35 minutes with this case including review of chart records, direct evaluation of the patient at bedside, counseling the patient, discussion during interdisciplinary treatment rounds, risk assessment, and documentation in the electronic health record. (1) Schizophrenia: Plan 05/31/2023: Increase clozapine to 100mg HS po. Discontinue risperidone. Blood work tomorrow AM. 05/30/2023: Continue with clozapine 75mg HS po. Taper risperidone to 0.5mg BID. ANC check for 03/31 and fasting glucose and lipid panel ordered. 05/29/2023: increase clozaril to 75 mg po qhs, given daytime fatigue will decrease Risperdal to 1 mg BID. fasting labs ordered for next CBC on 03/31. 05/28/2023: increase clozaril to 50 mg qhs, when get to 100 mg will taper Risperdal further, in meantime Cogentin is helpful. Next Haldol dec will be due 06/19 and likely give 150 mg if Risperdal tapered by then/EPS remains manageable. 05/27/2023: the patient has historically done best with clozaril and will begin when confirm housing, status with CM, and ability to continue rx with [place]. 05/26/2023: The patient was admitted to the [facility] ([facility] mental health unit) on q15 min checks (behavioral with suicide precautions) for safety. The patient will participate in group, recreational, and milieu therapies and will be offered additional individual and family sessions as clinically appropriate. Would benefit from restart of Clozaril, will need to start Risperdal taper, only got 100 mg Haldol dec, will offer Haldol prn rather than standing until better control of dystonia/dysarthria with Cogentin. Need to confirm his status with [place] and ability to be monitored again with clozaril and retitrate. hold on fasting labs for now. Inventory Assets Strengths: help seeking, has been receptive to care in the past Needs: reestablish footing in community, management of antipsychotics Suicide Risk Level Suicide Risk Level: Moderate (q15 min suicide checks) (SI prior to admission and depressed mood, mood improving and feels safe in the hospital, agrees to let staff know if he feels unable to remain safe or requires additional support) Risk Factors Assessment Male: Yes Do You Have Access To A Gun?: No Mental Health Diagnoses: Yes Previous Psychiatric Hospitalization: Yes Protective Factors Assessment Employed: No (varying reports, must clarify) Interval History Identifying Information LEXII TEE is a 32-year-old M who currently states he's homeless, well known to [facility] from multiple inpatient stays for schizophrenia, and was admitted on 05/26/23 01:45 on a 201 voluntary commitment for SI and disorganized behavior. Chief Complaint "I'm fine thank you". Review of Systems Sleep Information Total Hours of Sleep: 6.75 Meal Information Percent Meal Consumed - Breakfast: 100 Percent Meal Consumed - Lunch: 100 Percent Meal Consumed - Dinner: 100 Subjective Subjective Patient was seen & assessed and interval progress reviewed with treatment team nursing and social work. More tired last evening, falling asleep during self- awareness group. Today reports stable mood. Denies SI which he attributes to being in the hospital with a chance to "relax" and the medication changes. Feels less concerned about getting COVID today. Physical Exam Psychiatric Orientation: alert and oriented x 3 Apperance: appropriately groomed Eye Contact: + fair eye contact Motor Behavior: no abnormal motor movements Speech: + abnormal rate/rhythm/volume of speech (slow, stutters at times) Affect: + blunted affect Mood: no depressed mood Thought Process: + tangential thought process Thought Content: + delusions (but better able to reality-test some today, still with COVID concerns) Suicidal Thoughts: denies suicidal thoughts, denies suicidal plan and denies suicidal intent Homicidal Thoughts: denies homicidal thoughts Hallucinations: no auditory hallucinations and no visual hallucinations Cognition: attention grossly intact and language grossly intact Insight: + limited insight Judgment: + limited judgement Vital Signs (Past 24 Hours) Last Vital Signs Temp 36.9 C 05/31/23 06:54 Pulse 87 05/31/23 06:54 Resp 16 05/31/23 06:54 BP 103/70 05/31/23 06:54 Pulse Ox 98 05/31/23 06:54 O2 Del Method Room Air 05/31/23 06:54 Results & Data ([facility]) Current Inpatient Medications Current Inpatient Medications: Current Inpatient Medications Acetaminophen (Acetaminophen 325 Mg Tab) 650 mg PO Q4H PRN PRN Reason: Headache or Minor Fever Stop: 06/25/23 02:34 Al Hydrox/Mg Hydrox/Simethicone (Aluminum/Magnesium Susp 30 Ml Udc) 30 ml PO Q4H PRN PRN Reason: GI Upset Stop: 06/25/23 02:34 Benztropine Mesylate (Benztropine Mesylate 1 Mg Tab) 1 mg PO BID LINO Stop: 06/25/23 16:39 Last Admin: 05/31/23 08:49 Dose: 1 mg Clozapine (Clozapine 25 Mg Tab) 75 mg PO HS LINO; Protocol Stop: 06/28/23 21:59 Last Admin: 05/30/23 21:14 Dose: 75 mg Haloperidol (Haloperidol 5 Mg Tab) 5 mg PO Q4 PRN PRN Reason: Anxiety/Agitation Stop: 06/25/23 16:35 Lorazepam (Lorazepam 1 Mg Tab) 1 mg PO Q4 PRN PRN Reason: Anxiety Stop: 06/25/23 16:39 Magnesium Hydroxide (Magnesium Hydroxide Susp 30 Ml Udc) 30 ml PO DAILY PRN PRN Reason: Constipation Stop: 06/25/23 02:34 Risperidone (Risperidone 0.5 Mg Tablet) 0.5 mg PO BIDM LINO Stop: 06/29/23 17:44 Last Admin: 05/31/23 08:49 Dose: 0.5 mg Sodium Chloride (Sodium Chloride 0.65% Na Soln 45 Ml ([place])) 1 - 2 sprays NA PRN PRN PRN Reason: Nasal Dryness/Congestion Stop: 06/25/23 02:34 Mental Health & Subst Abuse Tx Psychiatrist Name of Psychiatrist: Katie Wilson PA-C Psychiatrist's Date Of Appointment With Psychiatric Provider: 07/01/21 Time of Appointment with Psychiatrist: 2:30pm Therapist Name of Therapist: N/A was supposed to follow w/ Katie Marketing Proposal Specialist Name of Marketing Proposal Specialist: N/A but "would like to get it set up" (1) Schizophrenia Schizophrenia type: paranoid schizophrenia Qualified Code(s): F20.0 - Paranoid schizophrenia
[2023-05-31] MEDS: cloZAPine 100 MG TAB PO SCH (21:30)
[2023-06-01 08:11] LABS: Basophils # (auto) 0.06 K/uL (0.00-0.20); Eosinophils # (auto) 0.16 K/uL (0.00-0.50); Eosinophils % (auto) 2.7 %; Hematocrit (blood only) 41.2 % (42.0-52.0); Hemoglobin 13.7 g/dl (14.0-18.0); Immature Granulocytes # (auto) 0.01 K/uL (0.01-0.20); Immature Granulocytes % (auto) 0.2 %; Lymphocytes # (auto) 2.24 K/uL (1.20-3.40); Lymphocytes % (auto) 37.7 %; Mean Corpuscular Hgb Conc 33.3 g/dL (32.0-36.0); Mean Corpuscular Volume 87.3 fL (80.0-100.0); Mean Platelet Volume 10.2 fL (9.4-12.4); Monocytes # (auto) 0.46 K/uL (0.11-0.59); Monocytes % (auto) 7.7 %; Neutrophils # (auto) 3.01 K/uL (1.40-6.50); Neutrophils % (auto) 50.7 %; Platelet Count 364 K/uL (130-400); RDW Coefficient of Variation 14.5 % (11.5-14.5); RDW Standard Deviation 46.6 fL (36.4-46.3); Red Blood Count 4.72 M/uL (4.70-6.10); White Blood Count 5.94 K/ul (4.8-10.8)
[2023-06-01] MEDS: BENZTROPINE MESYLATE 1 MG TAB PO SCH ×2 (08:26→20:40)
[2023-06-01 08:45] LABS: Chol HDL Ratio 4.4 (0-5); Estimated Average Glucose 128 mg/dl; Hemoglobin A1C 6.1 % (4.5-5.6)
--- NOTE | 2023-06-01 09:00 | Psychiatric Progress Note ---
Date of Service June 01, 2023 Impression / Recommendations Impression 32 yo man with history of schizophrenia with long history of paranoid and disorganized behavior, recent hospitalization who presents with ongoing disorganization and no safe disposition. 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 Will continue to monitor and if worsens or does not improve can consider dose adjustments. Mood improving with clozapine. CBC reviewed, ANC stable for continued clozapine use. HbA1c consistent with pre- diabetes, discussed option to consider use of metformin, currently he denies any increased appetite from clozapine. Fasting lipid panel notable for elevated total cholesterol and LDL 170. Discussed medication options vs lifestyle changes but given use of clozapine, pre-diabetes and unclear family cardiac history he consents to starting rosuvastatin. Reviewed side effects including but not limited to muscle pain. Remains unable to care for self outside of hospital and without any safe disposition placement options. Overall, I spent a total of 35 minutes with this case including review of chart records, direct evaluation of the patient at bedside, counseling the patient, discussion during interdisciplinary treatment rounds, risk assessment, and documentation in the electronic health record. (1) Schizophrenia: (2) HLD (hyperlipidemia): (3) Prediabetes: Plan 06/01/2023: Continue clozapine 100mg HS po. Start rosuvastatin 5mg daily (recheck fasting lipid panel in 6 weeks) 05/31/2023: Increase clozapine to 100mg HS po. Discontinue risperidone. Blood work tomorrow AM. 05/30/2023: Continue with clozapine 75mg HS po. Taper risperidone to 0.5mg BID. ANC check for 03/31 and fasting glucose and lipid panel ordered. 05/29/2023: increase clozaril to 75 mg po qhs, given daytime fatigue will decrease Risperdal to 1 mg BID. fasting labs ordered for next CBC on 03/31. 05/28/2023: increase clozaril to 50 mg qhs, when get to 100 mg will taper Risperdal further, in meantime Cogentin is helpful. Next Haldol dec will be due 06/19 and likely give 150 mg if Risperdal tapered by then/EPS remains manageable. 05/27/2023: the patient has historically done best with clozaril and will begin when confirm housing, status with , and ability to continue rx with [place]. 05/26/2023: The patient was [facility] ([facility] inpatient mental health unit) on q15 min checks (behavioral with suicide precautions) for safety. The patient will participate in group, recreational, and milieu therapies and will be offered additional individual and family sessions as clinically appropriate. Would benefit from restart of Clozaril, will need to start Risperdal taper, only got 100 mg Haldol dec, will offer Haldol prn rather than standing until better control of dystonia/dysarthria with Cogentin. Need to confirm his status with [place] and ability to be monitored again with clozaril and retitrate. hold on fasting labs for now. Inventory Assets Strengths: help seeking, has been receptive to care in the past Needs: reestablish footing in community, management of antipsychotics Suicide Risk Level Suicide Risk Level: Moderate (q15 min suicide checks) (SI prior to admission and depressed mood, mood improving and feels safe in the hospital, agrees to let staff know if he feels unable to remain safe or requires additional support) Risk Factors Assessment Male: Yes Do You Have Access To A Gun?: No Mental Health Diagnoses: Yes Previous Psychiatric Hospitalization: Yes Protective Factors Assessment Employed: No (varying reports, must clarify) Interval History Identifying Information LEXII TEE is a 32-year-old M who currently states he's homeless, well known to from multiple inpatient stays for schizophrenia, and was admitted on 05/26/23 01:45 on a 201 voluntary commitment for SI and disorganized behavior. Chief Complaint "I've been dreaming a lot". Review of Systems Sleep Information Total Hours of Sleep: 7.75 Meal Information Percent Meal Consumed - Breakfast: 100 Percent Meal Consumed - Lunch: 100 Percent Meal Consumed - Dinner: 100 Subjective Subjective Patient was seen & assessed and interval progress reviewed with treatment team nursing and social work. Attended a few groups but was largely isolative from his peers. Reports fatigue from clozapine but he is willing to see if this improves over a few days while staying on the current dose. Reviewed blood work results and recommendation to start a statin for his cholesterol which he consents to. Physical Exam Psychiatric Orientation: alert and oriented x 3 Apperance: appropriately groomed Eye Contact: + fair eye contact Motor Behavior: no abnormal motor movements Speech: + abnormal rate/rhythm/volume of speech (slow, stutters at times) Affect: + blunted affect Mood: no depressed mood Thought Process: + circumstantial thought process Thought Content: + delusions (but lessening ) Suicidal Thoughts: denies suicidal thoughts, denies suicidal plan and denies suicidal intent Homicidal Thoughts: denies homicidal thoughts Hallucinations: no auditory hallucinations and no visual hallucinations Cognition: attention grossly intact and language grossly intact Insight: + limited insight Judgment: + limited judgement Vital Signs (Past 24 Hours) Last Vital Signs Temp 37.2 C 06/01/23 06:42 Pulse 76 06/01/23 06:42 Resp 16 06/01/23 06:42 BP 122/73 06/01/23 06:42 Pulse Ox 97 06/01/23 06:42 O2 Del Method Room Air 06/01/23 06:42 Results & Data ([facility]) Laboratory Results Laboratory Results - last 24 hr 06/01/23 06/01/23 06/01/23 07:41 07:41 07:41 WBC 5.94 RBC 4.72 Hgb 13.7 L Hct 41.2 L MCV 87.3 MCH 29.0 MCHC 33.3 RDW Std Deviation 46.6 H RDW Coeff of [place] 14.5 Plt Count 364 MPV 10.2 Immature Gran % (Auto) 0.2 Neut % (Auto) 50.7 Lymph % (Auto) 37.7 [place] % (Auto) 7.7 Eos % (Auto) 2.7 Baso % (Auto) 1.0 Neut # (Auto) 3.01 Lymph # (Auto) 2.24 [place] # (Auto) 0.46 Eos # (Auto) 0.16 Baso # (Auto) 0.06 Immature Gran # (Auto) 0.01 Estimat Average Glucose 128 Hemoglobin A1c 6.1 H Triglycerides 106 Cholesterol 247 H LDL Cholesterol, Calc 170 VLDL Cholesterol, Calc 21 HDL Cholesterol 56 Cholesterol/HDL Ratio 4.4 Current Inpatient Medications Current Inpatient Medications: Current Inpatient Medications Acetaminophen (Acetaminophen 325 Mg Tab) 650 mg PO Q4H PRN PRN Reason: Headache or Minor Fever Stop: 06/25/23 02:34 Al Hydrox/Mg Hydrox/Simethicone (Aluminum/Magnesium Susp 30 Ml Udc) 30 ml PO Q4H PRN PRN Reason: GI Upset Stop: 06/25/23 02:34 Benztropine Mesylate (Benztropine Mesylate 1 Mg Tab) 1 mg PO BID LINO Stop: 06/25/23 16:39 Last Admin: 06/01/23 08:26 Dose: 1 mg Clozapine (Clozapine 100 Mg Tab) 100 mg PO HS LINO; Protocol Stop: 06/30/23 21:59 Last Admin: 05/31/23 21:30 Dose: 100 mg Haloperidol (Haloperidol 5 Mg Tab) 5 mg PO Q4 PRN PRN Reason: Anxiety/Agitation Stop: 06/25/23 16:35 Lorazepam (Lorazepam 1 Mg Tab) 1 mg PO Q4 PRN PRN Reason: Anxiety Stop: 06/25/23 16:39 Magnesium Hydroxide (Magnesium Hydroxide Susp 30 Ml Udc) 30 ml PO DAILY PRN PRN Reason: Constipation Stop: 06/25/23 02:34 Sodium Chloride (Sodium Chloride 0.65% Na Soln 45 Ml ([place])) 1 - 2 sprays NA PRN PRN PRN Reason: Nasal Dryness/Congestion Stop: 06/25/23 02:34 Mental Health & Subst Abuse Tx Psychiatrist Name of Psychiatrist: Katie Wilson PA-C Psychiatrist's Date Of Appointment With Psychiatric Provider: 07/01/21 Time of Appointment with Psychiatrist: 2:30pm Therapist Name of Therapist: N/A was supposed to follow [place]/ Katie Data Communications Engineer Name of Data Communications Engineer: N/A but "would like to get it set up" (1) Schizophrenia Schizophrenia type: paranoid schizophrenia Qualified Code(s): F20.0 - Paranoid schizophrenia
[2023-06-01] MEDS: cloZAPine 100 MG TAB PO SCH (20:41)
[2023-06-02] MEDS: BENZTROPINE MESYLATE 1 MG TAB PO SCH (08:46)
[2023-06-02] MEDS: ROSUVASTATIN CALCIUM 5 MG TAB PO SCH (08:47)
--- NOTE | 2023-06-02 08:58 | Psychiatric Progress Note ---
Date of Service June 02, 2023 Impression / Recommendations Impression 32 yo man with history of schizophrenia with long history of paranoid and disorganized behavior, recent hospitalization who presents with ongoing disorganization and no safe disposition. 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 Therefore will lower dose again in attempt to reduce symptoms and improve adherence with goal of further titration in the future as haldol decanoate is out of his system and will discontinue benztropine as this may be amplifying sedation effects. Starting bowel regimen to ensure no constipation/hypomotility but denies these symptoms currently. Remains unable to care for self outside of hospital and without any safe disposition placement options. Overall, I spent a total of 35 minutes with this case including review of chart records, direct evaluation of the patient at bedside, counseling the patient, discussion during interdisciplinary treatment rounds, risk assessment, and documentation in the electronic health record. (1) Schizophrenia: (2) HLD (hyperlipidemia): (3) Prediabetes: Plan 06/02/2023: Decrease clozapine to 75mg HS. Discontinue cogentin, leave available as prn. Start scheduled colace and senna given use of clozapine. 06/01/2023: Continue clozapine 100mg HS po. Start rosuvastatin 5mg daily (recheck fasting lipid panel in 6 weeks) 05/31/2023: Increase clozapine to 100mg HS po. Discontinue risperidone. Blood work tomorrow AM. 05/30/2023: Continue with clozapine 75mg HS po. Taper risperidone to 0.5mg BID. ANC check for 03/31 and fasting glucose and lipid panel ordered. 05/29/2023: increase clozaril to 75 mg po qhs, given daytime fatigue will decrease Risperdal to 1 mg BID. fasting labs ordered for next CBC on 03/31. 05/28/2023: increase clozaril to 50 mg qhs, when get to 100 mg will taper Risperdal further, in meantime Cogentin is helpful. Next Haldol dec will be due 06/19 and likely give 150 mg if Risperdal tapered by then/EPS remains manageable. 05/27/2023: the patient has historically done best with clozaril and will begin when confirm housing, status with CM, and ability to continue rx with [place]. 05/26/2023: [facility] ([facility] inpatient mental health unit) on q15 min checks (behavioral with suicide precautions) for safety. The patient will participate in group, recreational, and milieu therapies and will be offered additional individual and family sessions as clinically appropriate. Would benefit from restart of Clozaril, will need to start Risperdal taper, only got 100 mg Haldol dec, will offer Haldol prn rather than standing until better control of dystonia/dysarthria with Cogentin. Need to confirm his status with [place] and ability to be monitored again with clozaril and retitrate. hold on fasting labs for now. Inventory Assets Strengths: help seeking, has been receptive to care in the past Needs: reestablish footing in community, management of antipsychotics Suicide Risk Level Suicide Risk Level: Moderate (q15 min suicide checks) (SI prior to admission and depressed mood, mood improving and feels safe in the hospital, agrees to let staff know if he feels unable to remain safe or requires additional support) Risk Factors Assessment Male: Yes Do You Have Access To A Gun?: No Mental Health Diagnoses: Yes Previous Psychiatric Hospitalization: Yes Protective Factors Assessment Employed: No (varying reports, must clarify) Interval History Identifying Information LEXII TEE is a 32-year-old M who currently states he's homeless, well known to from multiple inpatient stays for schizophrenia, and was admitted on 05/26/23 01:45 on a 201 voluntary commitment for SI and disorganized behavior. Chief Complaint "It's bad". Review of Systems Sleep Information Total Hours of Sleep: 7.25 Meal Information Percent Meal Consumed - Breakfast: 100 Percent Meal Consumed - Lunch: 100 Percent Meal Consumed - Dinner: 100 Subjective Subjective Patient was seen & assessed and interval progress reviewed with treatment team nursing and social work. Attended evening group. This morning reports ongoing severe sedation which he attributes to clozapine, he also developed drooling overnight. Denies any issues with constipation. No side effects from start of Crestor so far. He would like to reduce the dose of clozapine. Focusing more on reality-based concerns such as filing his taxes and getting lost items from [place] hospitalization. Physical Exam Psychiatric Orientation: alert and oriented x 3 Apperance: appropriately groomed Eye Contact: + fair eye contact Motor Behavior: no abnormal motor movements Speech: + abnormal rate/rhythm/volume of speech (slow, stutters at times) Affect: + blunted affect Mood: no depressed mood Thought Process: + circumstantial thought process Thought Content: reality based without delusions Suicidal Thoughts: denies suicidal thoughts, denies suicidal plan and denies suicidal intent Homicidal Thoughts: denies homicidal thoughts Hallucinations: no auditory hallucinations and no visual hallucinations Cognition: attention grossly intact and language grossly intact Insight: + limited insight Judgment: + limited judgement Vital Signs (Past 24 Hours) Last Vital Signs Temp 36.6 C 06/02/23 06:44 Pulse 93 H 06/02/23 06:44 Resp 14 06/02/23 06:44 BP 119/83 06/02/23 06:44 Pulse Ox 97 06/01/23 06:42 O2 Del Method Room Air 06/01/23 06:42 Results & Data ([facility]) Current Inpatient Medications Current Inpatient Medications: Current Inpatient Medications Acetaminophen (Acetaminophen 325 Mg Tab) 650 mg PO Q4H PRN PRN Reason: Headache or Minor Fever Stop: 06/25/23 02:34 Al Hydrox/Mg Hydrox/Simethicone (Aluminum/Magnesium Susp 30 Ml Udc) 30 ml PO Q4H PRN PRN Reason: GI Upset Stop: 06/25/23 02:34 Benztropine Mesylate (Benztropine Mesylate 1 Mg Tab) 1 mg PO BID [facility] Stop: 06/25/23 16:39 Last Admin: 06/02/23 08:46 Dose: 1 mg Clozapine (Clozapine 100 Mg Tab) 100 mg PO HS [facility]; Protocol Stop: 06/30/23 21:59 Last Admin: 06/01/23 20:41 Dose: 100 mg Haloperidol (Haloperidol 5 Mg Tab) 5 mg PO Q4 PRN PRN Reason: Anxiety/Agitation Stop: 06/25/23 16:35 Lorazepam (Lorazepam 1 Mg Tab) 1 mg PO Q4 PRN PRN Reason: Anxiety Stop: 06/25/23 16:39 Magnesium Hydroxide (Magnesium Hydroxide Susp 30 Ml Udc) 30 ml PO DAILY PRN PRN Reason: Constipation Stop: 06/25/23 02:34 Rosuvastatin Calcium (Rosuvastatin Calcium 5 Mg Tab) 5 mg PO QAM LINO Stop: 07/02/23 08:59 Last Admin: 06/02/23 08:47 Dose: 5 mg Sodium Chloride (Sodium Chloride 0.65% Na Soln 45 Ml ([place])) 1 - 2 sprays NA PRN PRN PRN Reason: Nasal Dryness/Congestion Stop: 06/25/23 02:34 Mental Health & Subst Abuse Tx Psychiatrist Name of Psychiatrist: Katie Wilson PA-C Psychiatrist's Date Of Appointment With Psychiatric Provider: 07/01/21 Time of Appointment with Psychiatrist: 2:30pm Therapist Name of Therapist: N/A was supposed to follow w/ Katie Oil Dipper Name of Oil Dipper: N/A but "would like to get it set up" (1) Schizophrenia Schizophrenia type: paranoid schizophrenia Qualified Code(s): F20.0 - Paranoid schizophrenia
[2023-06-02] MEDS ORDERED: BENZTROPINE MESYLATE 1 MG TAB PO PRN (13:13)
[2023-06-02] MEDS: cloZAPine 25 MG TAB PO SCH (20:55)
[2023-06-02] MEDS: SENNA 8.6 MG TAB PO SCH (20:57)
[2023-06-02] MEDS: DOCUSATE SODIUM 100 MG CAP PO SCH (20:57)
--- NOTE | 2023-06-03 08:45 | Psychiatric Progress Note ---
Date of Service June 03, 2023 Impression / Recommendations Impression 32 yo man with history of schizophrenia with long history of paranoid and disorganized behavior, recent hospitalization who presents with ongoing disorganization and no safe disposition. MNPR due to psychosis, difficulty tolerating extended interactions with peers 06/03/2023: Mood continues to improve, more reality-based and focused on taxes and other future-oriented concerns. Fewer side effects with decreased clozapine dose. Remains unable to care for self outside of hospital and without any safe disposition placement options. Overall, I spent a total of 25 minutes with this case including review of chart records, direct evaluation of the patient at bedside, counseling the patient, discussion during interdisciplinary treatment rounds, risk assessment, and documentation in the electronic health record. (1) Schizophrenia: (2) HLD (hyperlipidemia): (3) Prediabetes: Plan 06/03/2023: Continue current medications and tx plan. 06/02/2023: Decrease clozapine to 75mg HS. Discontinue cogentin, leave available as prn. Start scheduled colace and senna given use of clozapine. 06/01/2023: Continue clozapine 100mg HS po. Start rosuvastatin 5mg daily (recheck fasting lipid panel in 6 weeks) 05/31/2023: Increase clozapine to 100mg HS po. Discontinue risperidone. Blood work tomorrow AM. 05/30/2023: Continue with clozapine 75mg HS po. Taper risperidone to 0.5mg BID. ANC check for 03/31 and fasting glucose and lipid panel ordered. 05/29/2023: increase clozaril to 75 mg po qhs, given daytime fatigue will decrease Risperdal to 1 mg BID. fasting labs ordered for next CBC on 03/31. 05/28/2023: increase clozaril to 50 mg qhs, when get to 100 mg will taper Risperdal further, in meantime Cogentin is helpful. Next Haldol dec will be due 06/19 and likely give 150 mg if Risperdal tapered by then/EPS remains manageable. 05/27/2023: the patient has historically done best with clozaril and will begin when confirm housing, status with CM, and ability to continue rx with [place]. 05/26/2023: The patient was admitted to the [facility] ([facility] mental health unit) on q15 min checks (behavioral with suicide precautions) for safety. The patient will participate in group, recreational, and milieu therapies and will be offered additional individual and family sessions as clinically appropriate. Would benefit from restart of Clozaril, will need to start Risperdal taper, only got 100 mg Haldol dec, will offer Haldol prn rather than standing until better control of dystonia/dysarthria with Cogentin. Need to confirm his status with [place] and ability to be monitored again with clozaril and retitrate. hold on fasting labs for now. Inventory Assets Strengths: help seeking, has been receptive to care in the past Needs: reestablish footing in community, management of antipsychotics Suicide Risk Level Suicide Risk Level: Moderate (q15 min suicide checks) (SI prior to admission and depressed mood, mood improving and feels safe in the hospital, agrees to let staff know if he feels unable to remain safe or requires additional support) Risk Factors Assessment Male: Yes Do You Have Access To A Gun?: No Mental Health Diagnoses: Yes Previous Psychiatric Hospitalization: Yes Protective Factors Assessment Employed: No (varying reports, must clarify) Interval History Identifying Information LEXII TEE is a 32-year-old M who currently states he's homeless, well known to 3S from multiple inpatient stays for schizophrenia, and was admitted on 05/26/23 01:45 on a 201 voluntary commitment for SI and disorganized behavior. Chief Complaint "I'm ok thank you". Review of Systems Sleep Information Total Hours of Sleep: 7 Meal Information Percent Meal Consumed - Breakfast: 100 Percent Meal Consumed - Lunch: 90 Percent Meal Consumed - Dinner: 100 Subjective Subjective Patient was seen & assessed and interval progress reviewed with treatment team nursing and social work. He's been concerned about his taxes which he says are due in late June. He has less sedation today with lower clozapine dose. Denies any drooling last night. Had bowel movement yesterday. Denies any other medication side effects. Physical Exam Psychiatric Orientation: alert and oriented x 3 Apperance: appropriately groomed Eye Contact: + fair eye contact Motor Behavior: no abnormal motor movements Speech: + abnormal rate/rhythm/volume of speech (slow, stutters at times) Affect: + blunted affect Mood: no depressed mood Thought Process: goal directed thought process Thought Content: reality based without delusions Suicidal Thoughts: denies suicidal thoughts, denies suicidal plan and denies suicidal intent Homicidal Thoughts: denies homicidal thoughts Hallucinations: no auditory hallucinations and no visual hallucinations Cognition: attention grossly intact and language grossly intact Insight: + limited insight Judgment: + limited judgement Vital Signs (Past 24 Hours) Last Vital Signs Temp 36.4 C L 06/03/23 06:00 Pulse 94 H 06/03/23 06:35 Resp 18 06/03/23 06:00 BP 125/83 06/03/23 06:35 Pulse Ox 100 06/03/23 06:00 O2 Del Method Room Air 06/03/23 06:00 Results & Data ([facility]) Current Inpatient Medications Current Inpatient Medications: Current Inpatient Medications Acetaminophen (Acetaminophen 325 Mg Tab) 650 mg PO Q4H PRN PRN Reason: Headache or Minor Fever Stop: 06/25/23 02:34 Al Hydrox/Mg Hydrox/Simethicone (Aluminum/Magnesium Susp 30 Ml Udc) 30 ml PO Q4H PRN PRN Reason: GI Upset Stop: 06/25/23 02:34 Benztropine Mesylate (Benztropine Mesylate 1 Mg Tab) 1 mg PO BID PRN PRN Reason: muscle stiffness/EPS Stop: 06/25/23 16:39 Clozapine (Clozapine 25 Mg Tab) 75 mg PO HS LINO; Protocol Stop: 07/02/23 21:59 Last Admin: 06/02/23 20:55 Dose: 75 mg Docusate Sodium (Docusate Sodium 100 Mg Cap) 100 mg PO HS [facility] Stop: 07/02/23 21:59 Last Admin: 06/02/23 20:57 Dose: 100 mg Haloperidol (Haloperidol 5 Mg Tab) 5 mg PO Q4 PRN PRN Reason: Anxiety/Agitation Stop: 06/25/23 16:35 Lorazepam (Lorazepam 1 Mg Tab) 1 mg PO Q4 PRN PRN Reason: Anxiety Stop: 06/25/23 16:39 Magnesium Hydroxide (Magnesium Hydroxide Susp 30 Ml Udc) 30 ml PO DAILY PRN PRN Reason: Constipation Stop: 06/25/23 02:34 Rosuvastatin Calcium (Rosuvastatin Calcium 5 Mg Tab) 5 mg PO QAM LINO Stop: 07/02/23 08:59 Last Admin: 06/02/23 08:47 Dose: 5 mg Sennosides (Senna 8.6 Mg Tab) 17.2 mg PO HS LINO Stop: 07/02/23 21:59 Last Admin: 06/02/23 20:57 Dose: 17.2 mg Sodium Chloride (Sodium Chloride 0.65% Na Soln 45 Ml ([place])) 1 - 2 sprays NA PRN PRN PRN Reason: Nasal Dryness/Congestion Stop: 06/25/23 02:34 Mental Health & Subst Abuse Tx Psychiatrist Name of Psychiatrist: Katie Wilson PA-C Psychiatrist's Date Of Appointment With Psychiatric Provider: 07/01/21 Time of Appointment with Psychiatrist: 2:30pm Therapist Name of Therapist: N/A was supposed to follow w/ Katie [place] Demonstrator Name of County Demonstrator: N/A but "would like to get it set up" (1) Schizophrenia Schizophrenia type: paranoid schizophrenia Qualified Code(s): F20.0 - Paranoid schizophrenia
[2023-06-03] MEDS: ROSUVASTATIN CALCIUM 5 MG TAB PO SCH (08:47)
[2023-06-03] MEDS: cloZAPine 25 MG TAB PO SCH (21:03)
[2023-06-03] MEDS: SENNA 8.6 MG TAB PO SCH (21:04)
[2023-06-03] MEDS: DOCUSATE SODIUM 100 MG CAP PO SCH (21:05)
--- NOTE | 2023-06-04 09:13 | Psychiatric Progress Note ---
Date of Service June 04, 2023 Impression / Recommendations Impression 32 yo man with history of schizophrenia with long history of paranoid and disorganized behavior, recent hospitalization who presents with ongoing disorganization and no safe disposition. 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 Still with some sedation from clozapine but no other side effects at lower dose. Remains unable to care for self outside of hospital and without any safe disposition placement options. Overall, I spent a total of 25 minutes with this case including review of chart records, direct evaluation of the patient at bedside, counseling the patient, discussion during interdisciplinary treatment rounds, risk assessment, and documentation in the electronic health record. (1) Schizophrenia: (2) HLD (hyperlipidemia): (3) Prediabetes: Plan 06/04/2023: Continue current medications and tx plan. 06/03/2023: Continue current medications and tx plan. 06/02/2023: Decrease clozapine to 75mg HS. Discontinue cogentin, leave available as prn. Start scheduled colace and senna given use of clozapine. 06/01/2023: Continue clozapine 100mg HS po. Start rosuvastatin 5mg daily (recheck fasting lipid panel in 6 weeks) 05/31/2023: Increase clozapine to 100mg HS po. Discontinue risperidone. Blood work tomorrow AM. 05/30/2023: Continue with clozapine 75mg HS po. Taper risperidone to 0.5mg BID. ANC check for 03/31 and fasting glucose and lipid panel ordered. 05/29/2023: increase clozaril to 75 mg po qhs, given daytime fatigue will decrease Risperdal to 1 mg BID. fasting labs ordered for next CBC on 03/31. 05/28/2023: increase clozaril to 50 mg qhs, when get to 100 mg will taper Risperdal further, in meantime Cogentin is helpful. Next Haldol dec will be due 06/19 and likely give 150 mg if Risperdal tapered by then/EPS remains manageable. 05/27/2023: the patient has historically done best with clozaril and will begin when confirm housing, status with CM, and ability to continue rx with [place]. 05/26/2023: The patient was admitted to the [facility] ([facility] unit) on q15 min checks (behavioral with suicide precautions) for safety. The patient will participate in group, recreational, and milieu therapies and will be offered additional individual and family sessions as clinically appropriate. Would benefit from restart of Clozaril, will need to start Risperdal taper, only got 100 mg Haldol dec, will offer Haldol prn rather than standing until better control of dystonia/dysarthria with Cogentin. Need to confirm his status with [place] and ability to be monitored again with clozaril and retitrate. hold on fasting labs for now. Inventory Assets Strengths: help seeking, has been receptive to care in the past Needs: reestablish footing in community, management of antipsychotics Suicide Risk Level Suicide Risk Level: Moderate (q15 min suicide checks) (SI prior to admission and depressed mood, mood improving and feels safe in the hospital, agrees to let staff know if he feels unable to remain safe or requires additional support) Risk Factors Assessment Male: Yes Do You Have Access To A Gun?: No Mental Health Diagnoses: Yes Previous Psychiatric Hospitalization: Yes Protective Factors Assessment Employed: No (varying reports, must clarify) Interval History Identifying Information LEXII TEE is a 32-year-old M who currently states he's homeless, well known to 3S from multiple inpatient stays for schizophrenia, and was admitted on 05/26/23 01:45 on a 201 voluntary commitment for SI and disorganized behavior. Chief Complaint "fine thank you". Review of Systems Sleep Information Total Hours of Sleep: 6.45 Meal Information Percent Meal Consumed - Breakfast: 100 Percent Meal Consumed - Lunch: 100 Percent Meal Consumed - Dinner: 100 Subjective Subjective Patient was seen & assessed and interval progress reviewed with treatment team nursing and social work. Showered last evening. Attending groups. Still isolative at times, feels more tired today but he isn't sure why. Wants to work on his taxes, looking forward to meeting with his new comp field case manager. Denies any other medication side effects. Physical Exam Psychiatric Orientation: alert and oriented x 3 Apperance: appropriately groomed Eye Contact: + fair eye contact Motor Behavior: no abnormal motor movements Speech: + abnormal rate/rhythm/volume of speech (slow, stutters at times) Affect: + blunted affect Mood: no depressed mood Thought Process: goal directed thought process Thought Content: reality based without delusions Suicidal Thoughts: denies suicidal thoughts, denies suicidal plan and denies suicidal intent Homicidal Thoughts: denies homicidal thoughts Hallucinations: no auditory hallucinations and no visual hallucinations Cognition: attention grossly intact and language grossly intact Insight: + limited insight Judgment: + limited judgement Vital Signs (Past 24 Hours) Last Vital Signs Temp 37.2 C 06/04/23 06:00 Pulse 89 06/04/23 06:36 Resp 16 06/04/23 06:00 BP 111/70 06/04/23 06:36 Pulse Ox 99 06/04/23 06:00 O2 Del Method Room Air 06/04/23 06:00 Results & Data ([facility]) Current Inpatient Medications Current Inpatient Medications: Current Inpatient Medications Acetaminophen (Acetaminophen 325 Mg Tab) 650 mg PO Q4H PRN PRN Reason: Headache or Minor Fever Stop: 06/25/23 02:34 Al Hydrox/Mg Hydrox/Simethicone (Aluminum/Magnesium Susp 30 Ml Udc) 30 ml PO Q4H PRN PRN Reason: GI Upset Stop: 06/25/23 02:34 Benztropine Mesylate (Benztropine Mesylate 1 Mg Tab) 1 mg PO BID PRN PRN Reason: muscle stiffness/EPS Stop: 06/25/23 16:39 Clozapine (Clozapine 25 Mg Tab) 75 mg PO HS LINO; Protocol Stop: 07/02/23 21:59 Last Admin: 06/03/23 21:03 Dose: 75 mg Docusate Sodium (Docusate Sodium 100 Mg Cap) 100 mg PO HS [facility] Stop: 07/02/23 21:59 Last Admin: 06/03/23 21:05 Dose: 100 mg Haloperidol (Haloperidol 5 Mg Tab) 5 mg PO Q4 PRN PRN Reason: Anxiety/Agitation Stop: 06/25/23 16:35 Lorazepam (Lorazepam 1 Mg Tab) 1 mg PO Q4 PRN PRN Reason: Anxiety Stop: 06/25/23 16:39 Magnesium Hydroxide (Magnesium Hydroxide Susp 30 Ml Udc) 30 ml PO DAILY PRN PRN Reason: Constipation Stop: 06/25/23 02:34 Rosuvastatin Calcium (Rosuvastatin Calcium 5 Mg Tab) 5 mg PO QAM [facility] Stop: 07/02/23 08:59 Last Admin: 06/03/23 08:47 Dose: 5 mg Sennosides (Senna 8.6 Mg Tab) 17.2 mg PO HS [facility] Stop: 07/02/23 21:59 Last Admin: 06/03/23 21:04 Dose: 17.2 mg Sodium Chloride (Sodium Chloride 0.65% Na Soln 45 Ml ([place])) 1 - 2 sprays NA PRN PRN PRN Reason: Nasal Dryness/Congestion Stop: 06/25/23 02:34 Mental Health & Subst Abuse Tx Psychiatrist Name of Psychiatrist: Katie Wilson PA-C Psychiatrist's Date Of Appointment With Psychiatric Provider: 07/01/21 Time of Appointment with Psychiatrist: 2:30pm Therapist Name of Therapist: N/A was supposed to follow w/ Katie Ham Stripper Name of Ham Stripper: N/A but "would like to get it set up" (1) Schizophrenia Schizophrenia type: paranoid schizophrenia Qualified Code(s): F20.0 - Paranoid schizophrenia
[2023-06-04] MEDS: ROSUVASTATIN CALCIUM 5 MG TAB PO SCH (09:40)
[2023-06-04] MEDS: SENNA 8.6 MG TAB PO SCH (21:04)
[2023-06-04] MEDS: DOCUSATE SODIUM 100 MG CAP PO SCH (21:04)
[2023-06-04] MEDS: cloZAPine 25 MG TAB PO SCH (21:05)
--- NOTE | 2023-06-05 06:45 | Psychiatric Progress Note ---
Date of Service June 05, 2023 Impression / Recommendations Impression 32 yo man with history of schizophrenia with long history of paranoid and disorganized behavior, recent hospitalization who presents with ongoing disorganization and no safe disposition. 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 Less sedation from clozapine today which he is pleased with, some mild sialorrhea last night, but he feels this is tolerable and better than with prior dose of clozapine, no other side effects. Unclear at this point if previous haldol CONDE offering any remaining benefit, for now will hold off any future doses. Remains unable to care for self outside of hospital and without any safe disposition placement options, process started for referral to [facility] extended acute care program. Overall, I spent a total of 25 minutes with this case including review of chart records, direct evaluation of the patient at bedside, counseling the patient, discussion during interdisciplinary treatment rounds, risk assessment, and documentation in the electronic health record. (1) Schizophrenia: (2) HLD (hyperlipidemia): (3) Prediabetes: Plan 06/05/2023: Continue current medications and tx plan. 06/04/2023: Continue current medications and tx plan. 06/03/2023: Continue current medications and tx plan. 06/02/2023: Decrease clozapine to 75mg HS. Discontinue cogentin, leave available as prn. Start scheduled colace and senna given use of clozapine. 06/01/2023: Continue clozapine 100mg HS po. Start rosuvastatin 5mg daily (recheck fasting lipid panel in 6 weeks) 05/31/2023: Increase clozapine to 100mg HS po. Discontinue risperidone. Blood work tomorrow AM. 05/30/2023: Continue with clozapine 75mg HS po. Taper risperidone to 0.5mg BID. ANC check for 03/31 and fasting glucose and lipid panel ordered. 05/29/2023: increase clozaril to 75 mg po qhs, given daytime fatigue will decrease Risperdal to 1 mg BID. fasting labs ordered for next CBC on 03/31. 05/28/2023: increase clozaril to 50 mg qhs, when get to 100 mg will taper Risperdal further, in meantime Cogentin is helpful. Next Haldol dec will be due 06/19 and likely give 150 mg if Risperdal tapered by then/EPS remains manageable. 05/27/2023: the patient has historically done best with clozaril and will begin when confirm housing, status with CM, and ability to continue rx with [place]. 05/26/2023: The patient was admitted to the [facility] ([facility] mental health unit) on q15 min checks (behavioral with suicide precautions) for safety. The patient will participate in group, recreational, and milieu therapies and will be offered additional individual and family sessions as clinically appropriate. Would benefit from restart of Clozaril, will need to start Risperdal taper, only got 100 mg Haldol dec, will offer Haldol prn rather than standing until better control of dystonia/dysarthria with Cogentin. Need to confirm his status with [place] and ability to be monitored again with clozaril and retitrate. hold on fasting labs for now. Inventory Assets Strengths: help seeking, has been receptive to care in the past Needs: reestablish footing in community, management of antipsychotics Suicide Risk Level Suicide Risk Level: Moderate (q15 min suicide checks) (SI prior to admission and depressed mood, mood improving and feels safe in the hospital, agrees to let staff know if he feels unable to remain safe or requires additional support) Risk Factors Assessment Male: Yes Do You Have Access To A Gun?: No Mental Health Diagnoses: Yes Previous Psychiatric Hospitalization: Yes Protective Factors Assessment Employed: No (varying reports, must clarify) Interval History Identifying Information LEXII TEE is a 32-year-old M who currently states he's homeless, well known to from multiple inpatient stays for schizophrenia, and was admitted on 05/26/23 01:45 on a 201 voluntary commitment for SI and disorganized behavior. Chief Complaint "OK I slept well". Review of Systems Sleep Information Total Hours of Sleep: 7 Meal Information Percent Meal Consumed - Breakfast: 100 Percent Meal Consumed - Lunch: 100 Percent Meal Consumed - Dinner: 100 Subjective Subjective Patient was seen & assessed and interval progress reviewed with treatment team nursing and social work. Isolative during the evening, citing fatigue and took some naps. Walked alone in the [place] at times. This morning met with his CM which went well and then participated in interview for [facility] extended acute care program which he feels sounds like a good fit. There program reported recent COVID case which brought up some of his previous concerns about getting COVID but he was able to process this with the social security assessor well. Feels his mood is stable and is pleased to have met his new bottle caser. Had some drooling last night but reports this was "not as bad as before" on lower dose of clozapine and feels his energy level is much better today reporting "high" energy which he is pleased with. Denies any other concerns. Physical Exam Psychiatric Orientation: alert and oriented x 3 Apperance: appropriately groomed Eye Contact: + fair eye contact Motor Behavior: no abnormal motor movements Speech: + abnormal rate/rhythm/volume of speech (slow, stutters at times) Affect: + blunted affect Mood: no depressed mood Thought Process: goal directed thought process Thought Content: reality based without delusions Suicidal Thoughts: denies suicidal thoughts, denies suicidal plan and denies suicidal intent Homicidal Thoughts: denies homicidal thoughts Hallucinations: no auditory hallucinations and no visual hallucinations Cognition: attention grossly intact and language grossly intact Insight: + limited insight Judgment: + limited judgement Vital Signs (Past 24 Hours) Last Vital Signs Temp 37.2 C 06/04/23 06:00 Pulse 89 06/04/23 06:36 Resp 16 06/04/23 06:00 BP 111/70 06/04/23 06:36 Pulse Ox 99 06/04/23 06:00 O2 Del Method Room Air 06/04/23 06:00 Results & Data ([facility]) Current Inpatient Medications Current Inpatient Medications: Current Inpatient Medications Acetaminophen (Acetaminophen 325 Mg Tab) 650 mg PO Q4H PRN PRN Reason: Headache or Minor Fever Stop: 06/25/23 02:34 Al Hydrox/Mg Hydrox/Simethicone (Aluminum/Magnesium Susp 30 Ml Udc) 30 ml PO Q4H PRN PRN Reason: GI Upset Stop: 06/25/23 02:34 Benztropine Mesylate (Benztropine Mesylate 1 Mg Tab) 1 mg PO BID PRN PRN Reason: muscle stiffness/EPS Stop: 06/25/23 16:39 Clozapine (Clozapine 25 Mg Tab) 75 mg PO HS LINO; Protocol Stop: 07/02/23 21:59 Last Admin: 06/04/23 21:05 Dose: 75 mg Docusate Sodium (Docusate Sodium 100 Mg Cap) 100 mg PO HS [facility] Stop: 07/02/23 21:59 Last Admin: 06/04/23 21:04 Dose: 100 mg Haloperidol (Haloperidol 5 Mg Tab) 5 mg PO Q4 PRN PRN Reason: Anxiety/Agitation Stop: 06/25/23 16:35 Lorazepam (Lorazepam 1 Mg Tab) 1 mg PO Q4 PRN PRN Reason: Anxiety Stop: 06/25/23 16:39 Magnesium Hydroxide (Magnesium Hydroxide Susp 30 Ml Udc) 30 ml PO DAILY PRN PRN Reason: Constipation Stop: 06/25/23 02:34 Rosuvastatin Calcium (Rosuvastatin Calcium 5 Mg Tab) 5 mg PO QAM [facility] Stop: 07/02/23 08:59 Last Admin: 06/04/23 09:40 Dose: 5 mg Sennosides (Senna 8.6 Mg Tab) 17.2 mg PO HS [facility]O Stop: 07/02/23 21:59 Last Admin: 06/04/23 21:04 Dose: 17.2 mg Sodium Chloride (Sodium Chloride 0.65% Na Soln 45 Ml ([place])) 1 - 2 sprays NA PRN PRN PRN Reason: Nasal Dryness/Congestion Stop: 06/25/23 02:34 Mental Health & Subst Abuse Tx Psychiatrist Name of Psychiatrist: Katie Wilson PA-C Psychiatrist's Date Of Appointment With Psychiatric Provider: 07/01/21 Time of Appointment with Psychiatrist: 2:30pm Therapist Name of Therapist: N/A was supposed to follow w/ Katie Bag Cutter Name of Bag Cutter: N/A but "would like to get it set up" (1) Schizophrenia Schizophrenia type: paranoid schizophrenia Qualified Code(s): F20.0 - Paranoid schizophrenia
[2023-06-05] MEDS: ROSUVASTATIN CALCIUM 5 MG TAB PO SCH (08:31)
[2023-06-05] MEDS: cloZAPine 25 MG TAB PO SCH (20:41)
[2023-06-05] MEDS: DOCUSATE SODIUM 100 MG CAP PO SCH (20:42)
[2023-06-05] MEDS: SENNA 8.6 MG TAB PO SCH (20:43)
[2023-06-06] MEDS: ROSUVASTATIN CALCIUM 5 MG TAB PO SCH (08:55)
--- NOTE | 2023-06-06 15:27 | Psychiatric Progress Note ---
Date of Service June 06, 2023 Impression / Recommendations Impression 32 yo man with history of schizophrenia with long history of paranoid and disorganized behavior, recent hospitalization who presents with ongoing disorganization and no safe disposition. 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 He no longer reports sialorrhea but still feels as if it's sedating. He doesn't think he wants to reduce the dose any further out of concern that it's already low and further decrease might render it ineffective, with which I agreed. He has few plans or thoughts about where he might live after discharge (he'd been essentially homeless) or how he'd manage things such as required blood tests. Pt appears familiar with potential clozapine side effects but is en tirely unconcerned about any of them, just as he is about the requirement for ANC tests. Overall I spent a total of 33 minutes for this inpatient follow-up including review of chart records, review of labwork, direct evaluation of the patient [id number], counseling the patient, reviewing medication, risk assessment, discussion during interdisciplinary treatment rounds, and documentation in the electronic health record. 06/05/2023: Mood remains fairly stable even with stressor of multiple meetings this morning. Less sedation from clozapine today which he is pleased with, some mild sialorrhea last night, but he feels this is tolerable and better than with prior dose of clozapine, no other side effects. Unclear at this point if previous haldol CONDE offering any remaining benefit, for now will hold off any future doses. Remains unable to care for self outside of hospital and without any safe disposition placement options, process started for referral to [facility] extended acute care program. (1) Schizophrenia: (2) HLD (hyperlipidemia): (3) Prediabetes: Plan 06/06/2023: * continue clozapine 75 mg QHS - reduced 06/02/2023 from 100 mg 06/05/2023: Continue current medications and tx plan. 06/04/2023: Continue current medications and tx plan. 06/03/2023: Continue current medications and tx plan. 06/02/2023: Decrease clozapine to 75mg HS. Discontinue cogentin, leave available as prn. Start scheduled colace and senna given use of clozapine. 06/01/2023: Continue clozapine 100mg HS po. Start rosuvastatin 5mg daily (recheck fasting lipid panel in 6 weeks) 05/31/2023: Increase clozapine to 100mg HS po. Discontinue risperidone. Blood work tomorrow AM. 05/30/2023: Continue with clozapine 75mg HS po. Taper risperidone to 0.5mg BID. ANC check for 03/31 and fasting glucose and lipid panel ordered. 05/29/2023: increase clozaril to 75 mg po qhs, given daytime fatigue will decrease Risperdal to 1 mg BID. fasting labs ordered for next CBC on 03/31. 05/28/2023: increase clozaril to 50 mg qhs, when get to 100 mg will taper Risperdal further, in meantime Cogentin is helpful. Next Haldol dec will be due 06/19 and likely give 150 mg if Risperdal tapered by then/EPS remains manageable. 05/27/2023: the patient has historically done best with clozaril and will begin when confirm housing, status with CM, and ability to continue rx with [facility]. 05/26/2023: The patient was admitted to the [facility] ([facility] mental health unit) on q15 min checks (behavioral with suicide precautions) for safety. The patient will participate in group, recreational, and milieu therapies and will be offered additional individual and family sessions as clinically appropriate. Would benefit from restart of Clozaril, will need to start Risperdal taper, only got 100 mg Haldol dec, will offer Haldol prn rather than standing until better control of dystonia/dysarthria with Cogentin. Need to confirm his status with [facility] and ability to be monitored again with clozaril and retitrate. hold on fasting labs for now. Inventory Assets Strengths: help seeking, has been receptive to care in the past Needs: reestablish footing in community, management of antipsychotics Suicide Risk Level Suicide Risk Level: Moderate (q15 min suicide checks) (SI prior to admission and depressed mood, mood improving and feels safe in the hospital, agrees to let staff know if he feels unable to remain safe or requires additional support) Risk Factors Assessment Male: Yes Do You Have Access To A Gun?: No Mental Health Diagnoses: Yes Previous Psychiatric Hospitalization: Yes Protective Factors Assessment Employed: No (varying reports, must clarify) Interval History Identifying Information LEXII TEE is a 32-year-old M who currently states he's homeless, well known to [facility]S from multiple inpatient stays for schizophrenia, and was admitted on 05/26/23 01:45 on a 201 voluntary commitment for SI and disorganized behavior. Chief Complaint "The Clozaril is helping". Review of Systems Sleep Information Total Hours of Sleep: 6.5 Meal Information Percent Meal Consumed - Breakfast: 100 Percent Meal Consumed - Lunch: 100 Percent Meal Consumed - Dinner: 100 Subjective Subjective Patient was seen & assessed and interval progress reviewed in a multidisciplinary team meeting with psychiatric nursing and social work. For details, see the "Impression" section. Physical Exam Psychiatric Orientation: alert, oriented to person, oriented to place and oriented to time Apperance: appropriately groomed Eye Contact: + fair eye contact Motor Behavior: no abnormal motor movements Speech: + abnormal rate/rhythm/volume of speech (slow, stutters at times) Affect: + blunted affect Mood: no depressed mood Thought Process: goal directed thought process, + circumstantial thought process and + tangential thought process Thought Content: reality based without delusions Suicidal Thoughts: denies suicidal thoughts, denies suicidal plan and denies suicidal intent Homicidal Thoughts: denies homicidal thoughts Hallucinations: no auditory hallucinations and no visual hallucinations Cognition: attention grossly intact and language grossly intact Insight: + limited insight Judgment: + limited judgement Vital Signs (Past 24 Hours) Last Vital Signs Temp 37 C 06/06/23 06:42 Pulse 108 H 06/06/23 06:42 Resp 16 06/06/23 06:42 BP 126/83 06/06/23 06:42 Pulse Ox 100 06/05/23 06:00 O2 Del Method Room Air 06/05/23 06:00 Results & Data ([facility]) Current Inpatient Medications Current Inpatient Medications: Current Inpatient Medications Acetaminophen (Acetaminophen 325 Mg Tab) 650 mg PO Q4H PRN PRN Reason: Headache or Minor Fever Stop: 06/25/23 02:34 Al Hydrox/Mg Hydrox/Simethicone (Aluminum/Magnesium Susp 30 Ml Udc) 30 ml PO Q4H PRN PRN Reason: GI Upset Stop: 06/25/23 02:34 Benztropine Mesylate (Benztropine Mesylate 1 Mg Tab) 1 mg PO BID PRN PRN Reason: muscle stiffness/EPS Stop: 06/25/23 16:39 Clozapine (Clozapine 25 Mg Tab) 75 mg PO HS [facility]; Protocol Stop: 07/02/23 21:59 Last Admin: 06/05/23 20:41 Dose: 75 mg Docusate Sodium (Docusate Sodium 100 Mg Cap) 100 mg PO HS [facility] Stop: 07/02/23 21:59 Last Admin: 06/05/23 20:42 Dose: 100 mg Haloperidol (Haloperidol 5 Mg Tab) 5 mg PO Q4 PRN PRN Reason: Anxiety/Agitation Stop: 06/25/23 16:35 Lorazepam (Lorazepam 1 Mg Tab) 1 mg PO Q4 PRN PRN Reason: Anxiety Stop: 06/25/23 16:39 Magnesium Hydroxide (Magnesium Hydroxide Susp 30 Ml Udc) 30 ml PO DAILY PRN PRN Reason: Constipation Stop: 06/25/23 02:34 Rosuvastatin Calcium (Rosuvastatin Calcium 5 Mg Tab) 5 mg PO QAM [facility] Stop: 07/02/23 08:59 Last Admin: 06/06/23 08:55 Dose: 5 mg Sennosides (Senna 8.6 Mg Tab) 17.2 mg PO HS [facility] Stop: 07/02/23 21:59 Last Admin: 06/05/23 20:43 Dose: 17.2 mg Sodium Chloride (Sodium Chloride 0.65% Na Soln 45 Ml ([place])) 1 - 2 sprays NA PRN PRN PRN Reason: Nasal Dryness/Congestion Stop: 06/25/23 02:34 Mental Health & Subst Abuse Tx Psychiatrist Name of Psychiatrist: Katie Wilson PA-C Psychiatrist's Date Of Appointment With Psychiatric Provider: 07/01/21 Time of Appointment with Psychiatrist: 2:30pm Therapist Name of Therapist: N/A was supposed to follow w/ Katie Shift Mechanic Name of Shift Mechanic: N/A but "would like to get it set up" (1) Schizophrenia Schizophrenia type: paranoid schizophrenia Qualified Code(s): F20.0 - Paranoid schizophrenia
[2023-06-06] MEDS: cloZAPine 25 MG TAB PO SCH (20:54)
[2023-06-06] MEDS: DOCUSATE SODIUM 100 MG CAP PO SCH (20:55)
[2023-06-06] MEDS: SENNA 8.6 MG TAB PO SCH (20:56)
[2023-06-07] MEDS: ROSUVASTATIN CALCIUM 5 MG TAB PO SCH (09:52)
--- NOTE | 2023-06-07 17:11 | Psychiatric Progress Note ---
Date of Service June 07, 2023 Impression / Recommendations Impression 32 yo man with history of schizophrenia with long history of paranoid and disorganized behavior, recent hospitalization who presents with ongoing disorganization and no safe disposition. 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 He says he would like to continue current clozapine dose despite thinking it makes him a little sleepy. Overall I spent a total of 22 minutes for this inpatient follow-up including review of chart records, review of labwork, direct evaluation of the patient [id number], counseling the patient, review of high-risk medication, risk assessment, discussion during interdisciplinary treatment rounds, and documentation in the electronic health record. 06/06/2023: Pt reports thinking clozapine is helping with his psychotic symptoms. He no longer reports sialorrhea but still feels as if it's sedating. He doesn't think he wants to reduce the dose any further out of concern that it's already low and further decrease might render it ineffective, with which I agreed. He has few plans or thoughts about where he might live after discharge (he'd been essentially homeless) or how he'd manage things such as required blood tests. Pt appears familiar with potential clozapine side effects but is entirely unconcerned about any of them, just as he is about the requirement for ANC tests. 06/05/2023: Mood remains fairly stable even with stressor of multiple meetings this morning. Less sedation from clozapine today which he is pleased with, some mild sialorrhea last night, but he feels this is tolerable and better than with prior dose of clozapine, no other side effects. Unclear at this point if previous haldol CONDE offering any remaining benefit, for now will hold off any future doses. Remains unable to care for self outside of hospital and without any safe disposition placement options, process started for referral to [facility] extended acute care program. (1) Schizophrenia: (2) HLD (hyperlipidemia): (3) Prediabetes: Plan 06/07/2023: * continue clozapine 75 mg QHS - reduced 06/02/2023 from 100 mg 06/06/2023: * continue clozapine 75 mg QHS - reduced 06/02/2023 from 100 mg 06/05/2023: Continue current medications and tx plan. 06/04/2023: Continue current medications and tx plan. 06/03/2023: Continue current medications and tx plan. 06/02/2023: Decrease clozapine to 75mg HS. Discontinue cogentin, leave available as prn. Start scheduled colace and senna given use of clozapine. 06/01/2023: Continue clozapine 100mg HS po. Start rosuvastatin 5mg daily (recheck fasting lipid panel in 6 weeks) 05/31/2023: Increase clozapine to 100mg HS po. Discontinue risperidone. Blood work tomorrow AM. 05/30/2023: Continue with clozapine 75mg HS po. Taper risperidone to 0.5mg BID. ANC check for 03/31 and fasting glucose and lipid panel ordered. 05/29/2023: increase clozaril to 75 mg po qhs, given daytime fatigue will decrease Risperdal to 1 mg BID. fasting labs ordered for next CBC on 03/31. 05/28/2023: increase clozaril to 50 mg qhs, when get to 100 mg will taper Risperdal further, in meantime Cogentin is helpful. Next Haldol dec will be due 06/19 and likely give 150 mg if Risperdal tapered by then/EPS remains manageable. 05/27/2023: the patient has historically done best with clozaril and will begin when confirm housing, status with CM, and ability to continue rx with [facility]. 05/26/2023: The patient was admitted to the [facility] ([facility] mental health unit) on q15 min checks (behavioral with suicide precautions) for safety. The patient will participate in group, recreational, and milieu therapies and will be offered additional individual and family sessions as clinically appropriate. Would benefit from restart of Clozaril, will need to start Risperdal taper, only got 100 mg Haldol dec, will offer Haldol prn rather than standing until better control of dystonia/dysarthria with Cogentin. Need to confirm his status with [facility] and ability to be monitored again with clozaril and retitrate. hold on fasting labs for now. Inventory Assets Strengths: help seeking, has been receptive to care in the past Needs: reestablish footing in community, management of antipsychotics Suicide Risk Level Suicide Risk Level: Moderate (q15 min suicide checks) (SI prior to admission and depressed mood, mood improving and feels safe in the hospital, agrees to let staff know if he feels unable to remain safe or requires additional support) Risk Factors Assessment Male: Yes Do You Have Access To A Gun?: No Mental Health Diagnoses: Yes Previous Psychiatric Hospitalization: Yes Protective Factors Assessment Employed: No (varying reports, must clarify) Interval History Identifying Information LEXII TEE is a 32-year-old M who currently states he's homeless, well known to [facility] from multiple inpatient stays for schizophrenia, and was admitted on 05/26/23 01:45 on a 201 voluntary commitment for SI and disorganized behavior. Chief Complaint "It's the same". Review of Systems Sleep Information Total Hours of Sleep: 7 Meal Information Percent Meal Consumed - Breakfast: 100 Percent Meal Consumed - Lunch: 100 Percent Meal Consumed - Dinner: 100 Subjective Subjective Patient was seen & assessed and interval progress reviewed in a multidisciplinary team meeting with psychiatric liaison nursing and social work. For details, see the "Impression" section. Physical Exam Psychiatric Orientation: alert, oriented x 3, oriented to person, oriented to place and oriented to time Apperance: appropriately groomed Eye Contact: + fair eye contact Motor Behavior: no abnormal motor movements Speech: + abnormal rate/rhythm/volume of speech (slow, stutters at times) Affect: + blunted affect Mood: no depressed mood Thought Process: + circumstantial thought process and + tangential thought process Thought Content: reality based without delusions Suicidal Thoughts: denies suicidal thoughts, denies suicidal plan and denies suicidal intent Homicidal Thoughts: denies homicidal thoughts Hallucinations: no auditory hallucinations and no visual hallucinations Cognition: attention grossly intact and language grossly intact Insight: + limited insight Judgment: + limited judgement Vital Signs (Past 24 Hours) Last Vital Signs Temp 36.9 C 06/07/23 06:40 Pulse 102 H 06/07/23 06:40 Resp 16 06/07/23 06:40 BP 109/71 06/07/23 06:40 Pulse Ox 100 06/05/23 06:00 O2 Del Method Room Air 06/05/23 06:00 Results & Data ([facility]) Current Inpatient Medications Current Inpatient Medications: Current Inpatient Medications Acetaminophen (Acetaminophen 325 Mg Tab) 650 mg PO Q4H PRN PRN Reason: Headache or Minor Fever Stop: 06/25/23 02:34 Al Hydrox/Mg Hydrox/Simethicone (Aluminum/Magnesium Susp 30 Ml Udc) 30 ml PO Q4H PRN PRN Reason: GI Upset Stop: 06/25/23 02:34 Benztropine Mesylate (Benztropine Mesylate 1 Mg Tab) 1 mg PO BID PRN PRN Reason: muscle stiffness/EPS Stop: 06/25/23 16:39 Clozapine (Clozapine 25 Mg Tab) 75 mg PO HS [facility]; Protocol Stop: 07/02/23 21:59 Last Admin: 06/06/23 20:54 Dose: 75 mg Docusate Sodium (Docusate Sodium 100 Mg Cap) 100 mg PO HS [facility] Stop: 07/02/23 21:59 Last Admin: 06/06/23 20:55 Dose: 100 mg Haloperidol (Haloperidol 5 Mg Tab) 5 mg PO Q4 PRN PRN Reason: Anxiety/Agitation Stop: 06/25/23 16:35 Lorazepam (Lorazepam 1 Mg Tab) 1 mg PO Q4 PRN PRN Reason: Anxiety Stop: 06/25/23 16:39 Magnesium Hydroxide (Magnesium Hydroxide Susp 30 Ml Udc) 30 ml PO DAILY PRN PRN Reason: Constipation Stop: 06/25/23 02:34 Rosuvastatin Calcium (Rosuvastatin Calcium 5 Mg Tab) 5 mg PO QAM [facility] Stop: 07/02/23 08:59 Last Admin: 06/07/23 09:52 Dose: 5 mg Sennosides (Senna 8.6 Mg Tab) 17.2 mg PO HS [facility] Stop: 07/02/23 21:59 Last Admin: 06/06/23 20:56 Dose: 17.2 mg Sodium Chloride (Sodium Chloride 0.65% Na Soln 45 Ml ([place])) 1 - 2 sprays NA PRN PRN PRN Reason: Nasal Dryness/Congestion Stop: 06/25/23 02:34 Mental Health & Subst Abuse Tx Psychiatrist Name of Psychiatrist: Katie Wilson PA-C Psychiatrist's Date Of Appointment With Psychiatric Provider: 07/01/21 Time of Appointment with Psychiatrist: 2:30pm Therapist Name of Therapist: N/A was supposed to follow w/ Katie Chiropractic Physician Name of Chiropractic Physician: N/A but "would like to get it set up" (1) Schizophrenia Schizophrenia type: paranoid schizophrenia Qualified Code(s): F20.0 - Paranoid schizophrenia
[2023-06-07] MEDS: DOCUSATE SODIUM 100 MG CAP PO SCH (20:32)
[2023-06-07] MEDS: SENNA 8.6 MG TAB PO SCH (20:32)
[2023-06-07] MEDS: cloZAPine 25 MG TAB PO SCH (20:34)
[2023-06-08 08:32] LABS: Basophils # (auto) 0.05 K/uL (0.00-0.20); Basophils % (auto) 0.8 %; Eosinophils # (auto) 0.14 K/uL (0.00-0.50); Eosinophils % (auto) 2.2 %; Hematocrit (blood only) 38.5 % (42.0-52.0); Immature Granulocytes # (auto) 0.01 K/uL (0.01-0.20); Immature Granulocytes % (auto) 0.2 %; Lymphocytes # (auto) 2.11 K/uL (1.20-3.40); Lymphocytes % (auto) 32.4 %; Mean Corpuscular Hemoglobin 29.2 pg (25.0-34.0); Mean Corpuscular Hgb Conc 33.8 g/dL (32.0-36.0); Mean Corpuscular Volume 86.5 fL (80.0-100.0); Mean Platelet Volume 10.3 fL (9.4-12.4); Monocytes # (auto) 0.51 K/uL (0.11-0.59); Monocytes % (auto) 7.8 %; Neutrophils # (auto) 3.69 K/uL (1.40-6.50); Neutrophils % (auto) 56.6 %; Platelet Count 327 K/uL (130-400); RDW Coefficient of Variation 14.6 % (11.5-14.5); Red Blood Count 4.45 M/uL (4.70-6.10); White Blood Count 6.51 K/ul (4.8-10.8)
[2023-06-08] MEDS: ROSUVASTATIN CALCIUM 5 MG TAB PO SCH (08:38)
--- NOTE | 2023-06-08 10:21 | Psychiatric Progress Note ---
Date of Service June 08, 2023 Impression / Recommendations Impression 32 yo man with history of schizophrenia with long history of paranoid and disorganized behavior, recent hospitalization who presents with ongoing disorganization and no safe disposition. 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 Since none is anticipated, that's positive since any change would likely represent new s ymptoms or side effects. He reports feeling "maybe a little less sleepy" but is very ambivalent about this. Various team members note his tendency at any time to have some (unattainable) thing with which he's intensely preoccupied (retrieving belongings from another hospital, getting in touch with a friend who's moved far away and for whom he has no contact information, etc.) but which seem to fade away when the next preoccupation arises. 06/07/2023: Pt reports scant change. He says he would like to continue current clozapine dose despite thinking it makes him a little sleepy. 06/06/2023: Pt reports thinking clozapine is helping with his psychotic symptoms. He no longer reports sialorrhea but still feels as if it's sedating. He doesn't think he wants to reduce the dose any further out of concern that it's already low and further decrease might render it ineffective, with which I agreed. He has few plans or thoughts about where he might live after discharge (he'd been essentially homeless) or how he'd manage things such as required blood tests. Pt appears familiar with potential clozapine side effects but is entirely unconcerned about any of them, just as he is about the requirement for ANC tests. 06/05/2023: Mood remains fairly stable even with stressor of multiple meetings this morning. Less sedation from clozapine today which he is pleased with, some mild sialorrhea last night, but he feels this is tolerable and better than with prior dose of clozapine, no other side effects. Unclear at this point if previous haldol CONDE offering any remaining benefit, for now will hold off any future doses. Remains unable to care for self outside of hospital and without any safe disposition placement options, process started for referral to [facility] extended acute care program. (1) Schizophrenia: (2) HLD (hyperlipidemia): (3) Prediabetes: Plan 06/08/2023: * continue clozapine 75 mg QHS - reduced 06/02/2023 from 100 mg 06/07/2023: * continue clozapine 75 mg QHS - reduced 06/02/2023 from 100 mg 06/06/2023: * continue clozapine 75 mg QHS - reduced 06/02/2023 from 100 mg 06/05/2023: Continue current medications and tx plan. 06/04/2023: Continue current medications and tx plan. 06/03/2023: Continue current medications and tx plan. 06/02/2023: Decrease clozapine to 75mg HS. Discontinue cogentin, leave available as prn. Start scheduled colace and senna given use of clozapine. 06/01/2023: Continue clozapine 100mg HS po. Start rosuvastatin 5mg daily (recheck fasting lipid panel in 6 weeks) 05/31/2023: Increase clozapine to 100mg HS po. Discontinue risperidone. Blood work tomorrow AM. 05/30/2023: Continue with clozapine 75mg HS po. Taper risperidone to 0.5mg BID. ANC check for 03/31 and fasting glucose and lipid panel ordered. 05/29/2023: increase clozaril to 75 mg po qhs, given daytime fatigue will decrease Risperdal to 1 mg BID. fasting labs ordered for next CBC on 03/31. 05/28/2023: increase clozaril to 50 mg qhs, when get to 100 mg will taper Risperdal further, in meantime Cogentin is helpful. Next Haldol dec will be due 06/19 and likely give 150 mg if Risperdal tapered by then/EPS remains manageable. 05/27/2023: the patient has historically done best with clozaril and will begin when confirm housing, status with CM, and ability to continue rx with [place]. 05/26/2023: The patient was admitted to the [facility] ([facility] inpatient mental health unit) on q15 min checks (behavioral with suicide precautions) for safety. The patient will participate in group, recreational, and milieu therapies and will be offered additional individual and family sessions as clinically appropriate. Would benefit from restart of Clozaril, will need to start Risperdal taper, only got 100 mg Haldol dec, will offer Haldol prn rather than standing until better control of dystonia/dysarthria with Cogentin. Need to confirm his status with [place] and ability to be monitored again with clozaril and retitrate. hold on fasting labs for now. Inventory Assets Strengths: help seeking, has been receptive to care in the past Needs: reestablish footing in community, management of antipsychotics Suicide Risk Level Suicide Risk Level: Moderate (q15 min suicide checks) (SI prior to admission and depressed mood, mood improving and feels safe in the hospital, agrees to let staff know if he feels unable to remain safe or requires additional support) Risk Factors Assessment Male: Yes Do You Have Access To A Gun?: No Mental Health Diagnoses: Yes Previous Psychiatric Hospitalization: Yes Protective Factors Assessment Employed: No (varying reports, must clarify) Interval History Identifying Information LEXII TEE is a 32-year-old M who currently states he's homeless, well known to 3S from multiple inpatient stays for schizophrenia, and was admitted on 05/26/23 01:45 on a 201 voluntary commitment for SI and disorganized behavior. Chief Complaint "All the same". Review of Systems Sleep Information Total Hours of Sleep: 8.75 Meal Information Percent Meal Consumed - Breakfast: 100 Percent Meal Consumed - Lunch: 100 Percent Meal Consumed - Dinner: 100 Subjective Subjective The patient was seen and assessed and interval progress reviewed in a multidisciplinary team meeting with the treatment team. For details, see the "Impression" section. Overall I spent a total of 31 minutes for this inpatient follow-up including review of chart records, review of labwork, direct evaluation of the patient [id number], counseling the patient, risk assessment, discussion during interdisciplinary treatment rounds, and documentation in the electronic health record. Physical Exam Psychiatric Orientation: alert, oriented to person, oriented to place and oriented to time Apperance: appropriately groomed Eye Contact: + fair eye contact Motor Behavior: no abnormal motor movements Speech: + abnormal rate/rhythm/volume of speech (slow, stutters at times) Affect: + blunted affect Mood: no depressed mood Thought Process: + circumstantial thought process and + tangential thought process Thought Content: reality based without delusions Suicidal Thoughts: denies suicidal thoughts, denies suicidal plan and denies suicidal intent Homicidal Thoughts: denies homicidal thoughts Hallucinations: no auditory hallucinations and no visual hallucinations Cognition: attention grossly intact and language grossly intact Insight: + limited insight Judgment: + limited judgement Vital Signs (Past 24 Hours) Last Vital Signs Temp 36.9 C 06/08/23 06:35 Pulse 101 H 06/08/23 06:36 Resp 16 06/08/23 06:35 BP 151/95 H 06/08/23 06:36 Pulse Ox 100 06/05/23 06:00 O2 Del Method Room Air 06/05/23 06:00 Results & Data ([facility]) Laboratory Results Laboratory Results - last 24 hr 06/08/23 08:11 WBC 6.51 RBC 4.45 L Hgb 13.0 L Hct 38.5 L MCV 86.5 MCH 29.2 MCHC 33.8 RDW Std Deviation 46.0 RDW Coeff of Tawanna 14.6 H Plt Count 327 MPV 10.3 Immature Gran % (Auto) 0.2 Neut % (Auto) 56.6 Lymph % (Auto) 32.4 [place] % (Auto) 7.8 Eos % (Auto) 2.2 Baso % (Auto) 0.8 Neut # (Auto) 3.69 Lymph # (Auto) 2.11 [place] # (Auto) 0.51 Eos # (Auto) 0.14 Baso # (Auto) 0.05 Immature Gran # (Auto) 0.01 Current Inpatient Medications Current Inpatient Medications: Current Inpatient Medications Acetaminophen (Acetaminophen 325 Mg Tab) 650 mg PO Q4H PRN PRN Reason: Headache or Minor Fever Stop: 06/25/23 02:34 Al Hydrox/Mg Hydrox/Simethicone (Aluminum/Magnesium Susp 30 Ml Udc) 30 ml PO Q4H PRN PRN Reason: GI Upset Stop: 06/25/23 02:34 Benztropine Mesylate (Benztropine Mesylate 1 Mg Tab) 1 mg PO BID PRN PRN Reason: muscle stiffness/EPS Stop: 06/25/23 16:39 Clozapine (Clozapine 25 Mg Tab) 75 mg PO HS LINO; Protocol Stop: 07/02/23 21:59 Last Admin: 06/07/23 20:34 Dose: 75 mg Docusate Sodium (Docusate Sodium 100 Mg Cap) 100 mg PO HS LINO Stop: 07/02/23 21:59 Last Admin: 06/07/23 20:32 Dose: 100 mg Haloperidol (Haloperidol 5 Mg Tab) 5 mg PO Q4 PRN PRN Reason: Anxiety/Agitation Stop: 06/25/23 16:35 Lorazepam (Lorazepam 1 Mg Tab) 1 mg PO Q4 PRN PRN Reason: Anxiety Stop: 06/25/23 16:39 Magnesium Hydroxide (Magnesium Hydroxide Susp 30 Ml Udc) 30 ml PO DAILY PRN PRN Reason: Constipation Stop: 06/25/23 02:34 Rosuvastatin Calcium (Rosuvastatin Calcium 5 Mg Tab) 5 mg PO QAM LINO Stop: 07/02/23 08:59 Last Admin: 06/08/23 08:38 Dose: 5 mg Sennosides (Senna 8.6 Mg Tab) 17.2 mg PO HS LINO Stop: 07/02/23 21:59 Last Admin: 06/07/23 20:32 Dose: 17.2 mg Sodium Chloride (Sodium Chloride 0.65% Na Soln 45 Ml ([place])) 1 - 2 sprays NA PRN PRN PRN Reason: Nasal Dryness/Congestion Stop: 06/25/23 02:34 Mental Health & Subst Abuse Tx Psychiatrist Name of Psychiatrist: Katie Wilson PA-C Psychiatrist's Date Of Appointment With Psychiatric Provider: 07/01/21 Time of Appointment with Psychiatrist: 2:30pm Therapist Name of Therapist: N/A was supposed to follow w/ Katie Inspector Multifocal Lens Name of Inspector Multifocal Lens: N/A but "would like to get it set up" (1) Schizophrenia Schizophrenia type: paranoid schizophrenia Qualified Code(s): F20.0 - Paranoid schizophrenia
[2023-06-08] MEDS: cloZAPine 25 MG TAB PO SCH (21:01)
[2023-06-08] MEDS: SENNA 8.6 MG TAB PO SCH (21:05)
[2023-06-08] MEDS: DOCUSATE SODIUM 100 MG CAP PO SCH (21:05)
[2023-06-09] MEDS: ROSUVASTATIN CALCIUM 5 MG TAB PO SCH (09:27)
--- NOTE | 2023-06-09 11:36 | Psychiatric Progress Note ---
Date of Service June 09, 2023 Impression / Recommendations Impression 32 yo man with history of schizophrenia with long history of paranoid and disorganized behavior, recent hospitalization who presents with ongoing disorganization and no safe disposition. 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 Attending groups and participating more. He volunteers that he's "not feeling so sleepy". He says he's "not really" having ay hallucinations. 06/08/2023: Neither reports nor evidences much change. Since none is anticipated, that's positive since any change would likely represent new symptoms or side effects. He reports feeling "maybe a little less sleepy" but is very ambivalent about this. Various team members note his tendency at any time to have some (unattainable) thing with which he's intensely preoccupied (retrieving belongings from another hospital, getting in touch with a friend who's moved far away and for whom he has no contact information, etc.) but which seem to fade away when the next preoccupation arises. 06/07/2023: Pt reports scant change. He says he would like to continue current clozapine dose despite thinking it makes him a little sleepy. 06/06/2023: Pt reports thinking clozapine is helping with his psychotic symptoms. He no longer reports sialorrhea but still feels as if it's sedating. He doesn't think he wants to reduce the dose any further out of concern that it's already low and further decrease might render it ineffective, with which I agreed. He has few plans or thoughts about where he might live after discharge (he'd been essentially homeless) or how he'd manage things such as required blood tests. Pt appears familiar with potential clozapine side effects but is entirely unconcerned about any of them, just as he is about the requirement for ANC tests. 06/05/2023: Mood remains fairly stable even with stressor of multiple meetings this morning. Less sedation from clozapine today which he is pleased with, some mild sialorrhea last night, but he feels this is tolerable and better than with prior dose of clozapine, no other side effects. Unclear at this point if previous haldol CONDE offering any remaining benefit, for now will hold off any future doses. Remains unable to care for self outside of hospital and without any safe disposition placement options, process started for referral to [facility] extended acute care program. (1) Schizophrenia: (2) HLD (hyperlipidemia): (3) Prediabetes: (4) Hyperlipidemia: Plan 06/09/2023: * continue clozapine 75 mg QHS - reduced 06/02/2023 from 100 mg 06/08/2023: * continue clozapine 75 mg QHS - reduced 06/02/2023 from 100 mg 06/07/2023: * continue clozapine 75 mg QHS - reduced 06/02/2023 from 100 mg 06/06/2023: * continue clozapine 75 mg QHS - reduced 06/02/2023 from 100 mg 06/05/2023: Continue current medications and tx plan. 06/04/2023: Continue current medications and tx plan. 06/03/2023: Continue current medications and tx plan. 06/02/2023: Decrease clozapine to 75mg HS. Discontinue cogentin, leave available as prn. Start scheduled colace and senna given use of clozapine. 06/01/2023: Continue clozapine 100mg HS po. Start rosuvastatin 5mg daily (recheck fasting lipid panel in 6 weeks) 05/31/2023: Increase clozapine to 100mg HS po. Discontinue risperidone. Blood work tomorrow AM. 05/30/2023: Continue with clozapine 75mg HS po. Taper risperidone to 0.5mg BID. ANC check for 03/31 and fasting glucose and lipid panel ordered. 05/29/2023: increase clozaril to 75 mg po qhs, given daytime fatigue will decrease Risperdal to 1 mg BID. fasting labs ordered for next CBC on 03/31. 05/28/2023: increase clozaril to 50 mg qhs, when get to 100 mg will taper Risperdal further, in meantime Cogentin is helpful. Next Haldol dec will be due 06/19 and likely give 150 mg if Risperdal tapered by then/EPS remains manageable. 05/27/2023: the patient has historically done best with clozaril and will begin when confirm housing, status with CM, and ability to continue rx with [place]. 05/26/2023: The patient was [facility] to the [facility] on q15 min checks (behavioral with suicide precautions) for safety. The patient will participate in group, recreational, and milieu therapies and will be offered additional individual and family sessions as clinically appropriate. Would benefit from restart of Clozaril, will need to start Risperdal taper, only got 100 mg Haldol dec, will offer Haldol prn rather than standing until better control of dystonia/dysarthria with Cogentin. Need to confirm his status with [place] and ability to be monitored again with clozaril and retitrate. hold on fasting labs for now. Inventory Assets Strengths: help seeking, has been receptive to care in the past Needs: reestablish footing in community, management of antipsychotics Suicide Risk Level Suicide Risk Level: Moderate (q15 min suicide checks) (SI prior to admission and depressed mood, mood improving and feels safe in the hospital, agrees to let staff know if he feels unable to remain safe or requires additional support) Risk Factors Assessment Male: Yes Do You Have Access To A Gun?: No Mental Health Diagnoses: Yes Previous Psychiatric Hospitalization: Yes Protective Factors Assessment Employed: No (varying reports, must clarify) Interval History Identifying Information LEXII TEE is a 32-year-old M who currently states he's homeless, well known to 3S from multiple inpatient stays for schizophrenia, and was admitted on 05/26/23 01:45 on a 201 voluntary commitment for SI and disorganized behavior. Chief Complaint "I'm OK". Review of Systems Sleep Information Total Hours of Sleep: 8 Meal Information Percent Meal Consumed - Breakfast: 100 Percent Meal Consumed - Lunch: 100 Percent Meal Consumed - Dinner: 100 Subjective Subjective The patient was seen and assessed and interval progress reviewed in a multidisciplinary team meeting with the treatment team. For details, see the "Impression" section. Overall I spent a total of 17 minutes for this inpatient follow-up including direct evaluation of the patient [id number], counseling the patient, risk assessment, discussion during interdisciplinary treatment rounds, [testifying at the patient's commitment hearing, ]and documentation in the electronic health record. Physical Exam Psychiatric Orientation: alert, oriented to person, oriented to place and oriented to time Apperance: appropriately groomed Eye Contact: + fair eye contact Motor Behavior: no abnormal motor movements Speech: + abnormal rate/rhythm/volume of speech (slow, stutters at times) Affect: + blunted affect Mood: no depressed mood Thought Process: + circumstantial thought process and + tangential thought process Thought Content: reality based without delusions Suicidal Thoughts: denies suicidal thoughts, denies suicidal plan and denies suicidal intent Homicidal Thoughts: denies homicidal thoughts Hallucinations: no auditory hallucinations and no visual hallucinations Cognition: attention grossly intact and language grossly intact Insight: + limited insight Judgment: + limited judgement Vital Signs (Past 24 Hours) Last Vital Signs Temp 36.7 C 06/09/23 06:36 Pulse 116 H 06/09/23 06:37 Resp 16 06/09/23 06:36 BP 120/86 06/09/23 06:37 Pulse Ox 100 06/05/23 06:00 O2 Del Method Room Air 06/05/23 06:00 Results & Data (U) Current Inpatient Medications Current Inpatient Medications: Current Inpatient Medications Acetaminophen (Acetaminophen 325 Mg Tab) 650 mg PO Q4H PRN PRN Reason: Headache or Minor Fever Stop: 06/25/23 02:34 Al Hydrox/Mg Hydrox/Simethicone (Aluminum/Magnesium Susp 30 Ml Udc) 30 ml PO Q4H PRN PRN Reason: GI Upset Stop: 06/25/23 02:34 Benztropine Mesylate (Benztropine Mesylate 1 Mg Tab) 1 mg PO BID PRN PRN Reason: muscle stiffness/EPS Stop: 06/25/23 16:39 Clozapine (Clozapine 25 Mg Tab) 75 mg PO [facility]; Protocol Stop: 07/02/23 21:59 Last Admin: 06/08/23 21:01 Dose: 75 mg Docusate Sodium (Docusate Sodium 100 Mg Cap) 100 mg PO [facility] Stop: 07/02/23 21:59 Last Admin: 06/08/23 21:05 Dose: Not Given Haloperidol (Haloperidol 5 Mg Tab) 5 mg PO Q4 PRN PRN Reason: Anxiety/Agitation Stop: 06/25/23 16:35 Lorazepam (Lorazepam 1 Mg Tab) 1 mg PO Q4 PRN PRN Reason: Anxiety Stop: 06/25/23 16:39 Magnesium Hydroxide (Magnesium Hydroxide Susp 30 Ml Udc) 30 ml PO DAILY PRN PRN Reason: Constipation Stop: 06/25/23 02:34 Rosuvastatin Calcium (Rosuvastatin Calcium 5 Mg Tab) [facility] Stop: 07/02/23 08:59 Last Admin: 06/09/23 09:27 Dose: 5 mg Sennosides (Senna 8.6 Mg Tab) 17.2 mg PO HS LINO Stop: 07/02/23 21:59 Last Admin: 06/08/23 21:05 Dose: Not Given Sodium Chloride (Sodium Chloride 0.65% Na Soln 45 Ml ([place])) 1 - 2 sprays NA PRN PRN PRN Reason: Nasal Dryness/Congestion Stop: 06/25/23 02:34 Mental Health & Subst Abuse Tx Psychiatrist Name of Psychiatrist: Katie Wilson PA-C Psychiatrist's Date Of Appointment With Psychiatric Provider: 07/01/21 Time of Appointment with Psychiatrist: 2:30pm Therapist Name of Therapist: N/A was supposed to follow w/ Katie Leather Production Artisan Name of Leather Production Artisan: N/A but "would like to get it set up" (1) Schizophrenia Schizophrenia type: paranoid schizophrenia Qualified Code(s): F20.0 - Paranoid schizophrenia
[2023-06-09] MEDS: SENNA 8.6 MG TAB PO SCH (20:47)
[2023-06-09] MEDS: cloZAPine 25 MG TAB PO SCH (20:47)
[2023-06-09] MEDS: DOCUSATE SODIUM 100 MG CAP PO SCH (20:48)
[2023-06-10] MEDS: ROSUVASTATIN CALCIUM 5 MG TAB PO SCH (09:30)
--- NOTE | 2023-06-10 16:19 | Psychiatric Progress Note ---
Date of Service June 10, 2023 Impression / Recommendations Impression 32 yo man with history of schizophrenia with long history of paranoid and disorganized behavior, recent hospitalization who presents with ongoing disorganization and no safe disposition. 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 Reports no new or worse problems. Met with his manager rn case yesterday and feels comfortable with the plan of placement once the intended facility reopens for admissions following a CoVID-19 outbreak for which they're currently closed. 06/09/2023: Pt has been out of his room more. Attending groups and participating more. He volunteers that he's "not feeling so sleepy". He says he's "not really" having ay hallucinations. 06/08/2023: Neither reports nor evidences much change. Since none is anticipated, that's positive since any change would likely represent new symptoms or side effects. He reports feeling "maybe a little less sleepy" but is very ambivalent about this. Various team members note his tendency at any time to have some (unattainable) thing with which he's intensely preoccupied (retrieving belongings from another hospital, getting in touch with a friend who's moved far away and for whom he has no contact information, etc.) but which seem to fade away when the next preoccupation arises. 06/07/2023: Pt reports scant change. He says he would like to continue current clozapine dose despite thinking it makes him a little sleepy. 06/06/2023: Pt reports thinking clozapine is helping with his psychotic symptoms. He no longer reports sialorrhea but still feels as if it's sedating. He doesn't think he wants to reduce the dose any further out of concern that it's already low and further decrease might render it ineffective, with which I agreed. He has few plans or thoughts about where he might live after discharge (he'd been essentially homeless) or how he'd manage things such as required blood tests. Pt appears familiar with potential clozapine side effects but is entirely unconcerned about any of them, just as he is about the requirement for ANC tests. 06/05/2023: Mood remains fairly stable even with stressor of multiple meetings this morning. Less sedation from clozapine today which he is pleased with, some mild sialorrhea last night, but he feels this is tolerable and better than with prior dose of clozapine, no other side effects. Unclear at this point if previous haldol CONDE offering any remaining benefit, for now will hold off any future doses. Remains unable to care for self outside of hospital and without any safe disposition placement options, process started for referral to [facility] extended acute care program. (1) Schizophrenia: (2) HLD (hyperlipidemia): (3) Prediabetes: Plan 06/10/2023: * continue clozapine 75 mg QHS - reduced 06/02/2023 from 100 mg 06/09/2023: * continue clozapine 75 mg QHS - reduced 06/02/2023 from 100 mg 06/08/2023: * continue clozapine 75 mg QHS - reduced 06/02/2023 from 100 mg 06/07/2023: * continue clozapine 75 mg QHS - reduced 06/02/2023 from 100 mg 06/06/2023: * continue clozapine 75 mg QHS - reduced 06/02/2023 from 100 mg 06/05/2023: Continue current medications and tx plan. 06/04/2023: Continue current medications and tx plan. 06/03/2023: Continue current medications and tx plan. 06/02/2023: Decrease clozapine to 75mg HS. Discontinue cogentin, leave available as prn. Start scheduled colace and senna given use of clozapine. 06/01/2023: Continue clozapine 100mg HS po. Start rosuvastatin 5mg daily (recheck fasting lipid panel in 6 weeks) 05/31/2023: Increase clozapine to 100mg HS po. Discontinue risperidone. Blood work tomorrow AM. 05/30/2023: Continue with clozapine 75mg HS po. Taper risperidone to 0.5mg BID. ANC check for 03/31 and fasting glucose and lipid panel ordered. 05/29/2023: increase clozaril to 75 mg po qhs, given daytime fatigue will decrease Risperdal to 1 mg BID. fasting labs ordered for next CBC on 03/31. 05/28/2023: increase clozaril to 50 mg qhs, when get to 100 mg will taper Risperdal further, in meantime Cogentin is helpful. Next Haldol dec will be due 06/19 and likely give 150 mg if Risperdal tapered by then/EPS remains manageable. 05/27/2023: the patient has historically done best with clozaril and will begin when confirm housing, status with CM, and ability to continue rx with [facility]. 05/26/2023: The patient was admitted to the [facility] ([facility] mental health unit) on q15 min checks (behavioral with suicide precautions) for safety. The patient will participate in group, recreational, and milieu therapies and w ill be offered additional individual and family sessions as clinically appropriate. Would benefit from restart of Clozaril, will need to start Risperdal taper, only got 100 mg Haldol dec, will offer Haldol prn rather than standing until better control of dystonia/dysarthria with Cogentin. Need to confirm his status with [facility] and ability to be monitored again with clozaril and retitrate. hold on fasting labs for now. Inventory Assets Strengths: help seeking, has been receptive to care in the past Needs: reestablish footing in community, management of antipsychotics Suicide Risk Level Suicide Risk Level: Moderate (q15 min suicide checks) (SI prior to admission and depressed mood, mood improving and feels safe in the hospital, agrees to let staff know if he feels unable to remain safe or requires additional support) Risk Factors Assessment Male: Yes Do You Have Access To A Gun?: No Mental Health Diagnoses: Yes Previous Psychiatric Hospitalization: Yes Protective Factors Assessment Employed: No (varying reports, must clarify) Interval History Identifying Information LEXII TEE is a 32-year-old M who currently states he's homeless, well known to from multiple inpatient stays for schizophrenia, and was admitted on 05/26/23 01:45 on a 201 voluntary commitment for SI and disorganized behavior. Chief Complaint "I'm not so tired". Review of Systems Sleep Information Total Hours of Sleep: 6.5 Meal Information Percent Meal Consumed - Breakfast: 100 Percent Meal Consumed - Lunch: 100 Percent Meal Consumed - Dinner: 100 Subjective Subjective The patient was seen and assessed and interval progress reviewed in a multidisciplinary team meeting with the treatment team. For details, see the "Impression" section. Overall I spent a total of 22 minutes for this inpatient follow-up including review of chart records, direct evaluation of the patient [id number], counseling the patient, risk assessment, discussion during interdisciplinary treatment rounds, and documentation in the electronic health record. Physical Exam Psychiatric Orientation: alert, oriented to person, oriented to place and oriented to time Apperance: appropriately groomed Eye Contact: + fair eye contact Motor Behavior: no abnormal motor movements Speech: + abnormal rate/rhythm/volume of speech (slow, stutters at times) Affect: + blunted affect Mood: no depressed mood Thought Process: + circumstantial thought process and + tangential thought process Thought Content: reality based without delusions Suicidal Thoughts: denies suicidal thoughts, denies suicidal plan and denies suicidal intent Homicidal Thoughts: denies homicidal thoughts Hallucinations: no auditory hallucinations and no visual hallucinations Cognition: attention grossly intact and language grossly intact Insight: + limited insight Judgment: + limited judgement Vital Signs (Past 24 Hours) Last Vital Signs Temp 36.9 C 06/10/23 06:37 Pulse 86 06/10/23 06:37 Resp 16 06/10/23 06:37 BP 105/71 06/10/23 06:37 Pulse Ox 100 06/05/23 06:00 O2 Del Method Room Air 06/05/23 06:00 Results & Data ([facility]) Current Inpatient Medications Current Inpatient Medications: Current Inpatient Medications Acetaminophen (Acetaminophen 325 Mg Tab) 650 mg PO Q4H PRN PRN Reason: Headache or Minor Fever Stop: 06/25/23 02:34 Al Hydrox/Mg Hydrox/Simethicone (Aluminum/Magnesium Susp 30 Ml Udc) 30 ml PO Q4H PRN PRN Reason: GI Upset Stop: 06/25/23 02:34 Benztropine Mesylate (Benztropine Mesylate 1 Mg Tab) 1 mg PO BID PRN PRN Reason: muscle stiffness/EPS Stop: 06/25/23 16:39 Clozapine (Clozapine 25 Mg Tab) 75 mg PO HS LINO; Protocol Stop: 07/02/23 21:59 Last Admin: 06/09/23 20:47 Dose: 75 mg Docusate Sodium (Docusate Sodium 100 Mg Cap) 100 mg PO HS LINO Stop: 07/02/23 21:59 Last Admin: 06/09/23 20:48 Dose: 100 mg Haloperidol (Haloperidol 5 Mg Tab) 5 mg PO Q4 PRN PRN Reason: Anxiety/Agitation Stop: 06/25/23 16:35 Lorazepam (Lorazepam 1 Mg Tab) 1 mg PO Q4 PRN PRN Reason: Anxiety Stop: 06/25/23 16:39 Magnesium Hydroxide (Magnesium Hydroxide Susp 30 Ml Udc) 30 ml PO DAILY PRN PRN Reason: Constipation Stop: 06/25/23 02:34 Rosuvastatin Calcium (Rosuvastatin Calcium 5 Mg Tab) 5 mg PO QAM LINO Stop: 07/02/23 08:59 Last Admin: 06/10/23 09:30 Dose: 5 mg Sennosides (Senna 8.6 Mg Tab) 17.2 mg PO HS LINO Stop: 07/02/23 21:59 Last Admin: 06/09/23 20:47 Dose: 17.2 mg Sodium Chloride (Sodium Chloride 0.65% Na Soln 45 Ml ([place])) 1 - 2 sprays NA PRN PRN PRN Reason: Nasal Dryness/Congestion Stop: 06/25/23 02:34 Mental Health & Subst Abuse Tx Psychiatrist Name of Psychiatrist: Katie Wilson PA-C Psychiatrist's Date Of Appointment With Psychiatric Provider: 07/01/21 Time of Appointment with Psychiatrist: 2:30pm Therapist Name of Therapist: N/A was supposed to follow w/ Katie Storage Garage Manager Name of Storage Garage Manager: N/A but "would like to get it set up" (1) Schizophrenia Schizophrenia type: paranoid schizophrenia Qualified Code(s): F20.0 - Paranoid schizophrenia
[2023-06-10] MEDS: cloZAPine 25 MG TAB PO SCH (21:03)
[2023-06-10] MEDS: DOCUSATE SODIUM 100 MG CAP PO SCH (21:03)
[2023-06-10] MEDS: SENNA 8.6 MG TAB PO SCH (21:04)
[2023-06-11] MEDS: ROSUVASTATIN CALCIUM 5 MG TAB PO SCH (08:49)
--- NOTE | 2023-06-11 08:50 | Psychiatric Progress Note ---
Date of Service June 11, 2023 Impression / Recommendations Impression 32 yo man with history of schizophrenia with long history of paranoid and disorganized behavior, recent hospitalization who presents with ongoing disorganization and no safe disposition. 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 Awaiting placement, most likely next week. Reporting no problems with medications. 06/10/2023: Stable. Reports no new or worse problems. Met with his medical case worker yesterday and feels comfortable with the plan of placement once the intended facility reopens for admissions following a CoVID-19 outbreak for which they're currently closed. 06/09/2023: Pt has been out of his room more. Attending groups and participating more. He volunteers that he's "not feeling so sleepy". He says he's "not really" having ay hallucinations. 06/08/2023: Neither reports nor evidences much change. Since none is anticipated, that's positive since any change would likely represent new symptoms or side effects. He reports feeling "maybe a little less sleepy" but is very ambivalent about this. Various team members note his tendency at any time to have some (unattainable) thing with which he's intensely preoccupied (retrieving belongings from another hospital, getting in touch with a friend who's moved far away and for whom he has no contact information, etc.) but which seem to fade away when the next preoccupation arises. 06/07/2023: Pt reports scant change. He says he would like to continue current clozapine dose despite thinking it makes him a little sleepy. 06/06/2023: Pt reports thinking clozapine is helping with his psychotic symptoms. He no longer reports sialorrhea but still feels as if it's sedating. He doesn't think he wants to reduce the dose any further out of concern that it's already low and further decrease might render it ineffective, with which I agreed. He has few plans or thoughts about where he might live after discharge (he'd been essentially homeless) or how he'd manage things such as required blood tests. Pt appears familiar with potential clozapine side effects but is entirely unconcerned about any of them, just as he is about the requirement for ANC tests. 06/05/2023: Mood remains fairly stable even with stressor of multiple meetings this morning. Less sedation from clozapine today which he is pleased with, some mild sialorrhea last night, but he feels this is tolerable and better than with prior dose of clozapine, no other side effects. Unclear at this point if previous haldol CONDE offering any remaining benefit, for now will hold off any future doses. Remains unable to care for self outside of hospital and without any safe disposition placement options, process started for referral to [facility] extended acute care program. (1) Schizophrenia: (2) HLD (hyperlipidemia): (3) Prediabetes: Plan 06/11/2023: * continue clozapine 75 mg QHS - reduced 06/02/2023 from 100 mg 06/10/2023: * continue clozapine 75 mg QHS - reduced 06/02/2023 from 100 mg 06/09/2023: * continue clozapine 75 mg QHS - reduced 06/02/2023 from 100 mg 06/08/2023: * continue clozapine 75 mg QHS - reduced 06/02/2023 from 100 mg 06/07/2023: * continue clozapine 75 mg QHS - reduced 06/02/2023 from 100 mg 06/06/2023: * continue clozapine 75 mg QHS - reduced 06/02/2023 from 100 mg 06/05/2023: Continue current medications and tx plan. 06/04/2023: Continue current medications and tx plan. 06/03/2023: Continue current medications and tx plan. 06/02/2023: Decrease clozapine to 75mg HS. Discontinue cogentin, leave available as prn. Start scheduled colace and senna given use of clozapine. 06/01/2023: Continue clozapine 100mg HS po. Start rosuvastatin 5mg daily (recheck fasting lipid panel in 6 weeks) 05/31/2023: Increase clozapine to 100mg HS po. Discontinue risperidone. Blood work tomorrow AM. 05/30/2023: Continue with clozapine 75mg HS po. Taper risperidone to 0.5mg BID. ANC check for 03/31 and fasting glucose and lipid panel ordered. 05/29/2023: increase clozaril to 75 mg po qhs, given daytime fatigue will decrease Risperdal to 1 mg BID. fasting labs ordered for next CBC on 03/31. 05/28/2023: increase clozaril to 50 mg qhs, when get to 100 mg will taper Risperdal further, in meantime Cogentin is helpful. Next Haldol dec will be due 06/19 and likely give 150 mg if Risperdal tapered by then/EPS remains manageable. 05/27/2023: the patient has historically done best with clozaril and will begin when confirm housing, status with CM, and ability to continue rx with [facility]. 05/26/2023: The patient was admitted to the [facility] ([facility] unit) on q15 min checks (behavioral with suicide precautions) for safety. The patient will participate in group, recreational, and milieu therapies and will be offered additional individual and family sessions as clinically appropriate. Would benefit from restart of Clozaril, will need to start Risperdal taper, only got 100 mg Haldol dec, will offer Haldol prn rather than standing until better control of dystonia/dysarthria with Cogentin. Need to confirm his status with [facility] and ability to be monitored again with clozaril and retitrate. hold on fasting labs for now. Inventory Assets Strengths: help seeking, has been receptive to care in the past Needs: reestablish footing in community, management of antipsychotics Suicide Risk Level Suicide Risk Level: Moderate (q15 min suicide checks) (SI prior to admission and depressed mood, mood improving and feels safe in the hospital, agrees to let staff know if he feels unable to remain safe or requires additional support) Risk Factors Assessment Male: Yes Do You Have Access To A Gun?: No Mental Health Diagnoses: Yes Previous Psychiatric Hospitalization: Yes Protective Factors Assessment Employed: No (varying reports, must clarify) Interval History Identifying Information LEXII TEE is a 32-year-old M who currently states he's homeless, well known to from multiple inpatient stays for schizophrenia, and was admitted on 05/26/23 01:45 on a 201 voluntary commitment for SI and disorganized behavior. Chief Complaint "It's OK". Review of Systems Sleep Information Total Hours of Sleep: 6.5 Meal Information Percent Meal Consumed - Breakfast: 100 Percent Meal Consumed - Lunch: 100 Percent Meal Consumed - Dinner: 100 Subjective Subjective The patient was seen and assessed and interval progress reviewed in a multidisciplinary team meeting with the treatment team. For details, see the "Impression" section. Overall I spent a total of 19 minutes for this inpatient follow-up including direct evaluation of the patient [id number], counseling the patient, risk assessment, discussion during interdisciplinary treatment rounds, and documentation in the electronic health record. Physical Exam Psychiatric Orientation: alert, oriented to person, oriented to place and oriented to time Apperance: appropriately groomed Eye Contact: + fair eye contact Motor Behavior: no abnormal motor movements Speech: + abnormal rate/rhythm/volume of speech (slow, stutters at times) Affect: + blunted affect Mood: no depressed mood Thought Process: goal directed thought process, + circumstantial thought process and + tangential thought process Thought Content: reality based without delusions Suicidal Thoughts: denies suicidal thoughts, denies suicidal plan and denies suicidal intent Homicidal Thoughts: denies homicidal thoughts Hallucinations: no auditory hallucinations and no visual hallucinations Cognition: attention grossly intact and language grossly intact Insight: + limited insight Judgment: + limited judgement Vital Signs (Past 24 Hours) Last Vital Signs Temp 36.8 C 06/11/23 06:35 Pulse 90 06/11/23 06:35 Resp 16 06/11/23 06:35 BP 102/69 06/11/23 06:35 Pulse Ox 100 06/05/23 06:00 O2 Del Method Room Air 06/05/23 06:00 Results & Data ([facility]) Current Inpatient Medications Current Inpatient Medications: Current Inpatient Medications Acetaminophen (Acetaminophen 325 Mg Tab) 650 mg PO Q4H PRN PRN Reason: Headache or Minor Fever Stop: 06/25/23 02:34 Al Hydrox/Mg Hydrox/Simethicone (Aluminum/Magnesium Susp 30 Ml Udc) 30 ml PO Q4H PRN PRN Reason: GI Upset Stop: 06/25/23 02:34 Benztropine Mesylate (Benztropine Mesylate 1 Mg Tab) 1 mg PO BID PRN PRN Reason: muscle stiffness/EPS Stop: 06/25/23 16:39 Clozapine (Clozapine 25 Mg Tab) 75 mg PO HS LINO; Protocol Stop: 07/02/23 21:59 Last Admin: 06/10/23 21:03 Dose: 75 mg Docusate Sodium (Docusate Sodium 100 Mg Cap) 100 mg PO HS LINO Stop: 07/02/23 21:59 Last Admin: 06/10/23 21:03 Dose: 100 mg Haloperidol (Haloperidol 5 Mg Tab) 5 mg PO Q4 PRN PRN Reason: Anxiety/Agitation Stop: 06/25/23 16:35 Lorazepam (Lorazepam 1 Mg Tab) 1 mg PO Q4 PRN PRN Reason: Anxiety Stop: 06/25/23 16:39 Magnesium Hydroxide (Magnesium Hydroxide Susp 30 Ml Udc) 30 ml PO DAILY PRN PRN Reason: Constipation Stop: 06/25/23 02:34 Rosuvastatin Calcium (Rosuvastatin Calcium 5 Mg Tab) 5 mg PO QAM LINO Stop: 07/02/23 08:59 Last Admin: 06/10/23 09:30 Dose: 5 mg Sennosides (Senna 8.6 Mg Tab) 17.2 mg PO HS LINO Stop: 07/02/23 21:59 Last Admin: 06/10/23 21:04 Dose: 17.2 mg Sodium Chloride (Sodium Chloride 0.65% Na Soln 45 Ml ([place])) 1 - 2 sprays NA PRN PRN PRN Reason: Nasal Dryness/Congestion Stop: 06/25/23 02:34 Mental Health & Subst Abuse Tx Psychiatrist Name of Psychiatrist: Katie Wilson PA-C Psychiatrist's Date Of Appointment With Psychiatric Provider: 07/01/21 Time of Appointment with Psychiatrist: 2:30pm Therapist Name of Therapist: N/A was supposed to follow galen/ Katie Mold Filler And Drainer Name of Mold Filler And Drainer: N/A but "would like to get it set up" (1) Schizophrenia Schizophrenia type: paranoid schizophrenia Qualified Code(s): F20.0 - Paranoid schizophrenia
[2023-06-11] MEDS: DOCUSATE SODIUM 100 MG CAP PO SCH (20:54)
[2023-06-11] MEDS: SENNA 8.6 MG TAB PO SCH (20:55)
[2023-06-11] MEDS: cloZAPine 25 MG TAB PO SCH (20:56)
--- NOTE | 2023-06-12 06:44 | Psychiatric Progress Note ---
Date of Service June 12, 2023 Impression / Recommendations Impression 32 yo man with history of schizophrenia with long history of paranoid and disorganized behavior, recent hospitalization who presents with ongoing disorganization and no safe disposition. 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 He remains a bit seclusive. Attends groups, doesn't participate much. Volunteers no psychotic symptoms. When asked, endorses vague auditory hallucinations; I'm unable to elicit any delusions. Pt is happy with current medication, as am I. 06/11/2023: Remains stable. Awaiting placement, most likely next week. Reporting no problems with medications. 06/10/2023: Stable. Reports no new or worse problems. Met with his employment evaluator/case manager yesterday and feels comfortable with the plan of placement once the intended facility reopens for admissions following a CoVID-19 outbreak for which they're currently closed. 06/09/2023: Pt has been out of his room more. Attending groups and participating more. He volunteers that he's "not feeling so sleepy". He says he's "not really" having any hallucinations. 06/08/2023: Neither reports nor evidences much change. Since none is anticipated, that's positive since any change would likely represent new symptoms or side effects. He reports feeling "maybe a little less sleepy" but is very ambivalent about this. Various team members note his tendency at any time to have some (unattainable) thing with which he's intensely preoccupied (retrieving belongings from another hospital, getting in touch with a friend who's moved far away and for whom he has no contact information, etc.) but which seem to fade away when the next preoccupation arises. 06/07/2023: Pt reports scant change. He says he would like to continue current clozapine dose despite thinking it makes him a little sleepy. 06/06/2023: Pt reports thinking clozapine is helping with his psychotic symptoms. He no longer reports sialorrhea but still feels as if it's sedating. He doesn't think he wants to reduce the dose any further out of concern that it's already low and further decrease might render it ineffective, with which I agreed. He has few plans or thoughts about where he might live after discharge (he'd been essentially homeless) or how he'd manage things such as required blood tests. Pt appears familiar with potential clozapine side effects but is entirely unconcerned about any of them, just as he is about the requirement for ANC tests. 06/05/2023: Mood remains fairly stable even with stressor of multiple meetings this morning. Less sedation from clozapine today which he is pleased with, some mild sialorrhea last night, but he feels this is tolerable and better than with prior dose of clozapine, no other side effects. Unclear at this point if previous haldol CONDE offering any remaining benefit, for now will hold off any future doses. Remains unable to care for self outside of hospital and without any safe disposition placement options, process started for referral to [facility] extended acute care program. (1) Schizophrenia: (2) HLD (hyperlipidemia): (3) Prediabetes: Plan 06/12/2023: * continue clozapine 75 mg QHS - reduced 06/02/2023 from 100 mg 06/11/2023: * continue clozapine 75 mg QHS - reduced 06/02/2023 from 100 mg 06/10/2023: * continue clozapine 75 mg QHS - reduced 06/02/2023 from 100 mg 06/09/2023: * continue clozapine 75 mg QHS - reduced 06/02/2023 from 100 mg 06/08/2023: * continue clozapine 75 mg QHS - reduced 06/02/2023 from 100 mg 06/07/2023: * continue clozapine 75 mg QHS - reduced 06/02/2023 from 100 mg 06/06/2023: * continue clozapine 75 mg QHS - reduced 06/02/2023 from 100 mg 06/05/2023: Continue current medications and tx plan. 06/04/2023: Continue current medications and tx plan. 06/03/2023: Continue current medications and tx plan. 06/02/2023: Decrease clozapine to 75mg HS. Discontinue cogentin, leave available as prn. Start scheduled colace and senna given use of clozapine. 06/01/2023: Continue clozapine 100mg HS po. Start rosuvastatin 5mg daily (recheck fasting lipid panel in 6 weeks) 05/31/2023: Increase clozapine to 100mg HS po. Discontinue risperidone. Blood work tomorrow AM. 05/30/2023: Continue with clozapine 75mg HS po. Taper risperidone to 0.5mg BID. ANC check for 03/31 and fasting glucose and lipid panel ordered. 05/29/2023: increase clozaril to 75 mg po qhs, given daytime fatigue will decrease Risperdal to 1 mg BID. fasting labs ordered for next CBC on 03/31. 05/28/2023: increase clozaril to 50 mg qhs, when get to 100 mg will taper Risperdal further, in meantime Cogentin is helpful. Next Haldol dec will be due 06/19 and likely give 150 mg if Risperdal tapered by then/EPS remains manageable. 05/27/2023: the patient has historically done best with clozaril and will begin when confirm housing, status with CM, and ability to continue rx with [place]. 05/26/2023: The patient was admitted to the [facility] ([facility] mental health unit) on q15 min checks (behavioral with suicide precautions) for safety. The patient will participate in group, recreational, and milieu therapies and will be offered additional individual and family sessions as clinically appropriate. Would benefit from restart of Clozaril, will need to start Risperdal taper, only got 100 mg Haldol dec, will offer Haldol prn rather than standing until better control of dystonia/dysarthria with Cogentin. Need to confirm his status with [facility] and ability to be monitored again with clozaril and retitrate. hold on fasting labs for now. Inventory Assets Strengths: help seeking, has been receptive to care in the past Needs: reestablish footing in community, management of antipsychotics Suicide Risk Level Suicide Risk Level: Moderate (q15 min suicide checks) (SI prior to admission and depressed mood, mood improving and feels safe in the hospital, agrees to let staff know if he feels unable to remain safe or requires additional support) Risk Factors Assessment Male: Yes Do You Have Access To A Gun?: No Mental Health Diagnoses: Yes Previous Psychiatric Hospitalization: Yes Protective Factors Assessment Employed: No (varying reports, must clarify) Interval History Identifying Information LEXII TEE is a 32-year-old M who currently states he's homeless, well known to from multiple inpatient stays for schizophrenia, and was admitted on 05/26/23 01:45 on a 201 voluntary commitment for SI and disorganized behavior. Chief Complaint "I'm sleepy" (seen on rounds much earlier than usual). Review of Systems Sleep Information Total Hours of Sleep: 6.75 Meal Information Percent Meal Consumed - Breakfast: 100 Percent Meal Consumed - Lunch: 75 Percent Meal Consumed - Dinner: 100 Subjective Subjective The patient was seen and assessed and interval progress reviewed in a multidisciplinary team meeting with the treatment team. For details, see the "Impression" section. Overall I spent a total of 16 minutes for this inpatient follow-up including review of chart records, direct evaluation of the patient [id number], counseling the patient, risk assessment, discussion during interdisciplinary treatment rounds, and documentation in the electronic health record. Physical Exam Psychiatric Orientation: alert, oriented to person, oriented to place and oriented to time Apperance: appropriately groomed Eye Contact: + fair eye contact Motor Behavior: no abnormal motor movements Speech: + abnormal rate/rhythm/volume of speech (slow, stutters at times) Affect: + blunted affect Mood: no depressed mood Thought Process: goal directed thought process, + circumstantial thought process and + tangential thought process Thought Content: reality based without delusions Suicidal Thoughts: denies suicidal thoughts, denies suicidal plan and denies suicidal intent Homicidal Thoughts: denies homicidal thoughts Hallucinations: no auditory hallucinations and no visual hallucinations Cognition: attention grossly intact and language grossly intact Insight: + limited insight Judgment: + limited judgement Vital Signs (Past 24 Hours) Last Vital Signs Temp 36.4 C L 06/12/23 06:36 Pulse 90 06/12/23 06:37 Resp 16 06/12/23 06:36 BP 102/67 06/12/23 06:37 Pulse Ox 100 06/05/23 06:00 O2 Del Method Room Air 06/05/23 06:00 Results & Data ([facility]) Current Inpatient Medications Current Inpatient Medications: Current Inpatient Medications Acetaminophen (Acetaminophen 325 Mg Tab) 650 mg PO Q4H PRN PRN Reason: Headache or Minor Fever Stop: 06/25/23 02:34 Al Hydrox/Mg Hydrox/Simethicone (Aluminum/Magnesium Susp 30 Ml Udc) 30 ml PO Q4H PRN PRN Reason: GI Upset Stop: 06/25/23 02:34 Benztropine Mesylate (Benztropine Mesylate 1 Mg Tab) 1 mg PO BID PRN PRN Reason: muscle stiffness/EPS Stop: 06/25/23 16:39 Clozapine (Clozapine 25 Mg Tab) 75 mg PO HS [facility]; Protocol Stop: 07/02/23 21:59 Last Admin: 06/11/23 20:56 Dose: 75 mg Docusate Sodium (Docusate Sodium 100 Mg Cap) 100 mg PO HS [facility] Stop: 07/02/23 21:59 Last Admin: 06/11/23 20:54 Dose: 100 mg Haloperidol (Haloperidol 5 Mg Tab) 5 mg PO Q4 PRN PRN Reason: Anxiety/Agitation Stop: 06/25/23 16:35 Lorazepam (Lorazepam 1 Mg Tab) 1 mg PO Q4 PRN PRN Reason: Anxiety Stop: 06/25/23 16:39 Magnesium Hydroxide (Magnesium Hydroxide Susp 30 Ml Udc) 30 ml PO DAILY PRN PRN Reason: Constipation Stop: 06/25/23 02:34 Rosuvastatin Calcium ([facility]atin Calcium 5 Mg Tab) [facility] Stop: 07/02/23 08:59 Last Admin: 06/11/23 08:49 Dose: 5 mg Sennosides (Senna 8.6 Mg Tab) 17.2 mg PO HS [facility] Stop: 07/02/23 21:59 Last Admin: 06/11/23 20:55 Dose: 17.2 mg Sodium Chloride (Sodium Chloride 0.65% Na Soln 45 Ml ([place])) 1 - 2 sprays NA PRN PRN PRN Reason: Nasal Dryness/Congestion Stop: 06/25/23 02:34 Mental Health & Subst Abuse Tx Psychiatrist Name of Psychiatrist: Katie Wilson PA-C Psychiatrist's Date Of Appointment With Psychiatric Provider: 07/01/21 Time of Appointment with Psychiatrist: 2:30pm Therapist Name of Therapist: N/A was supposed to follow galen/ Katie Manager Basketball Name of Manager Basketball: N/A but "would like to get it set up" (1) Schizophrenia Schizophrenia type: paranoid schizophrenia Qualified Code(s): F20.0 - Paranoid schizophrenia
[2023-06-12] MEDS: ROSUVASTATIN CALCIUM 5 MG TAB PO SCH (08:55)
[2023-06-12] MEDS ORDERED: HALOPERIDOL DECANOATE INJ 50 MG/ML VIAL IM ONE (14:52)
[2023-06-12] MEDS: cloZAPine 100 MG TAB PO SCH (21:02)
[2023-06-12] MEDS: DOCUSATE SODIUM 100 MG CAP PO SCH (21:03)
[2023-06-12] MEDS: SENNA 8.6 MG TAB PO SCH (21:03)
[2023-06-13] MEDS: ROSUVASTATIN CALCIUM 5 MG TAB PO SCH (08:49)
--- NOTE | 2023-06-13 09:25 | Psychiatric Progress Note ---
Date of Service June 13, 2023 Impression / Recommendations Impression 32 yo man with history of schizophrenia with long history of paranoid and disorganized behavior, recent hospitalization who presents with ongoing disorganization and no safe disposition. 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 William. Significant worsening of delusions, paranoia and insight over last two days, ongoing psychosis today. No apparent side effects to haldol decanoate yesterday or higher dose of clozapine. Overall, I spent a total of 40 minutes with this case including review of chart records, direct evaluation of the patient at bedside, counseling the patient, discussion during interdisciplinary treatment rounds, risk assessment, and documentation in the electronic health record. (1) Schizophrenia: (2) HLD (hyperlipidemia): (3) Prediabetes: Plan 06/13/2023: Continue clozapine 100mg HS,may require further dose titration if psychosis doesn't respond to haldol CONDE 06/12/2023: * clozapine increased to 100mg HS * depot haloperidol CONDE 150mg 06/11/2023: * continue clozapine 75 mg QHS - reduced 06/02/2023 from 100 mg 06/10/2023: * continue clozapine 75 mg QHS - reduced 06/02/2023 from 100 mg 06/09/2023: * continue clozapine 75 mg QHS - reduced 06/02/2023 from 100 mg 06/08/2023: * continue clozapine 75 mg QHS - reduced 06/02/2023 from 100 mg 06/07/2023: * continue clozapine 75 mg QHS - reduced 06/02/2023 from 100 mg 06/06/2023: * continue clozapine 75 mg QHS - reduced 06/02/2023 from 100 mg 06/05/2023: Continue current medications and tx plan. 06/04/2023: Continue current medications and tx plan. 06/03/2023: Continue current medications and tx plan. 06/02/2023: Decrease clozapine to 75mg HS. Discontinue cogentin, leave available as prn. Start scheduled colace and senna given use of clozapine. 06/01/2023: Continue clozapine 100mg HS po. Start rosuvastatin 5mg daily (recheck fasting lipid panel in 6 weeks) 05/31/2023: Increase clozapine to 100mg HS po. Discontinue risperidone. Blood work tomorrow AM. 05/30/2023: Continue with clozapine 75mg HS po. Taper risperidone to 0.5mg BID. ANC check for 03/31 and fasting glucose and lipid panel ordered. 05/29/2023: increase clozaril to 75 mg po qhs, given daytime fatigue will decrease Risperdal to 1 mg BID. fasting labs ordered for next CBC on 03/31. 05/28/2023: increase clozaril to 50 mg qhs, when get to 100 mg will taper Risperdal further, in meantime Cogentin is helpful. Next Haldol dec will be due 06/19 and likely give 150 mg if Risperdal tapered by then/EPS remains manageable. 05/27/2023: the patient has historically done best with clozaril and will begin when confirm housing, status with CM, and ability to continue rx with [place]. 05/26/2023: The patient was admitted to the [facility] ([facility]) on q15 min checks (behavioral with suicide precautions) for safety. The patient will participate in group, recreational, and milieu therapies and will be offered additional individual and family sessions as clinically appropriate. Would benefit from restart of Clozaril, will need to start Risperdal taper, only got 100 mg Haldol dec, will offer Haldol prn rather than standing until better control of dystonia/dysarthria with Cogentin. Need to confirm his status with [facility] and ability to be monitored again with clozaril and retitrate. hold on fasting labs for now. Inventory Assets Strengths: help seeking, has been receptive to care in the past Needs: reestablish footing in community, management of antipsychotics Suicide Risk Level Suicide Risk Level: Moderate (q15 min suicide checks) (SI prior to admission and depressed mood, mood improving and feels safe in the hospital, agrees to let staff know if he feels unable to remain safe or requires additional support) Risk Factors Assessment Male: Yes Do You Have Access To A Gun?: No Mental Health Diagnoses: Yes Previous Psychiatric Hospitalization: Yes Protective Factors Assessment Employed: No (varying reports, must clarify) Interval History Identifying Information LEXII TEE is a 32-year-old M who currently states he's homeless, well known to from multiple inpatient stays for schizophrenia, and was admitted on 05/26/23 01:45 on a 201 voluntary commitment for SI and disorganized behavior. Chief Complaint "[place] the airport, I think it was an atomic bomb so they put me in the witness protection program". Review of Systems Sleep Information Total Hours of Sleep: 5 Meal Information Percent Meal Consumed - Breakfast: 100 Percent Meal Consumed - Lunch: 100 Percent Meal Consumed - Dinner: 100 Subjective Subjective Patient was seen & assessed and interval progress reviewed with treatment team nursing and social work. Has been responding more to internal stimuli and delusions yesterday of bombing and confusion about his age again. Got his haldol decanoate yesterday. Today continues to be very occupied by internal stimuli and various beliefs about recent atomic bomb at [facility], that he's under age 20 and getting a new certificate from the witness protection program. Physical Exam Psychiatric Orientation: alert and oriented x 3 Apperance: appropriately groomed Eye Contact: + fair eye contact Motor Behavior: no abnormal motor movements Speech: + abnormal rate/rhythm/volume of speech (slow, stutters at times) Affect: + anxious affect and + blunted affect Mood: + anxious mood Thought Process: + tangential thought process and + looseness of associations Thought Content: + paranoid and + delusions Suicidal Thoughts: denies suicidal thoughts, denies suicidal plan and denies suicidal intent Homicidal Thoughts: denies homicidal thoughts Hallucinations: + auditory hallucinations (appears to be responding to internal stimuli); no visual hallucinations Cognition: attention grossly intact and language grossly intact Insight: + severely impaired insight Judgment: + limited judgement Vital Signs (Past 24 Hours) Last Vital Signs Temp 36.9 C 06/13/23 06:25 Pulse 77 06/13/23 06:25 Resp 16 06/13/23 06:25 BP 112/74 06/13/23 06:25 Pulse Ox 98 06/13/23 06:25 O2 Del Method Room Air 06/13/23 06:25 Results & Data ([facility]) Current Inpatient Medications Current Inpatient Medications: Current Inpatient Medications Acetaminophen (Acetaminophen 325 Mg Tab) 650 mg PO Q4H PRN PRN Reason: Headache or Minor Fever Stop: 06/25/23 02:34 Al Hydrox/Mg Hydrox/Simethicone (Aluminum/Magnesium Susp 30 Ml Udc) 30 ml PO Q4H PRN PRN Reason: GI Upset Stop: 06/25/23 02:34 Benztropine Mesylate (Benztropine Mesylate 1 Mg Tab) 1 mg PO BID PRN PRN Reason: muscle stiffness/EPS Stop: 06/25/23 16:39 Clozapine (Clozapine 100 Mg Tab) 100 mg PO [facility]; Protocol Stop: 07/12/23 21:59 Last Admin: 06/12/23 21:02 Dose: 100 mg Docusate Sodium (Docusate Sodium 100 Mg Cap) 100 mg PO [facility] Stop: 07/02/23 21:59 Last Admin: 06/12/23 21:03 Dose: 100 mg Haloperidol (Haloperidol 5 Mg Tab) 5 mg PO Q4 PRN PRN Reason: Anxiety/Agitation Stop: 06/25/23 16:35 Lorazepam (Lorazepam 1 Mg Tab) 1 mg PO Q4 PRN PRN Reason: Anxiety Stop: 06/25/23 16:39 Magnesium Hydroxide (Magnesium Hydroxide Susp 30 Ml Udc) 30 ml PO DAILY PRN PRN Reason: Constipation Stop: 06/25/23 02:34 Rosuvastatin Calcium (Rosuvastatin Calcium 5 Mg Tab) [facility] Stop: 07/02/23 08:59 Last Admin: 06/13/23 08:49 Dose: 5 mg Sennosides (Senna 8.6 Mg Tab) 17.2 mg PO [facility] Stop: 07/02/23 21:59 Last Admin: 06/12/23 21:03 Dose: 17.2 mg Sodium Chloride (Sodium Chloride 0.65% Na Soln 45 Ml ([place])) 1 - 2 sprays NA PRN PRN PRN Reason: Nasal Dryness/Congestion Stop: 06/25/23 02:34 Mental Health & Subst Abuse Tx Psychiatrist Name of Psychiatrist: Katie Wilson PA-C Psychiatrist's Date Of Appointment With Psychiatric Provider: 07/01/21 Time of Appointment with Psychiatrist: 2:30pm Therapist Name of Therapist: N/A was supposed to follow w/ Katie Religious Studies Professor Name of Religious Studies Professor: N/A but "would like to get it set up" (1) Schizophrenia Schizophrenia type: paranoid schizophrenia Qualified Code(s): F20.0 - Paranoid schizophrenia
[2023-06-13] MEDS: cloZAPine 100 MG TAB PO SCH (21:15)
[2023-06-13] MEDS: SENNA 8.6 MG TAB PO SCH (21:15)
[2023-06-13] MEDS: DOCUSATE SODIUM 100 MG CAP PO SCH (21:15)
[2023-06-14] MEDS: ROSUVASTATIN CALCIUM 5 MG TAB PO SCH (08:42)
--- NOTE | 2023-06-14 09:56 | Psychiatric Progress Note ---
Date of Service June 14, 2023 Impression / Recommendations Impression 32 yo man with history of schizophrenia with long history of paranoid and disorganized behavior, recent hospitalization who presents with ongoing disorganization and no safe disposition. 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 Tolerating medication adjustments. Overall, I spent a total of 25 minutes with this case including review of chart records, direct evaluation of the patient at bedside, counseling the patient, discussion during interdisciplinary treatment rounds, risk assessment, and documentation in the electronic health record. (1) Schizophrenia: (2) HLD (hyperlipidemia): (3) Prediabetes: Plan 06/14/2023: Continue clozapine 100mg HS. 06/13/2023: Continue clozapine 100mg HS,may require further dose titration if psychosis doesn't respond to haldol CONDE 06/12/2023: * clozapine increased to 100mg HS * depot haloperidol CONDE 150mg 06/11/2023: * continue clozapine 75 mg QHS - reduced 06/02/2023 from 100 mg 06/10/2023: * continue clozapine 75 mg QHS - reduced 06/02/2023 from 100 mg 06/09/2023: * continue clozapine 75 mg QHS - reduced 06/02/2023 from 100 mg 06/08/2023: * continue clozapine 75 mg QHS - reduced 06/02/2023 from 100 mg 06/07/2023: * continue clozapine 75 mg QHS - reduced 06/02/2023 from 100 mg 06/06/2023: * continue clozapine 75 mg QHS - reduced 06/02/2023 from 100 mg 06/05/2023: Continue current medications and tx plan. 06/04/2023: Continue current medications and tx plan. 06/03/2023: Continue current medications and tx plan. 06/02/2023: Decrease clozapine to 75mg HS. Discontinue cogentin, leave available as prn. Start scheduled colace and senna given use of clozapine. 06/01/2023: Continue clozapine 100mg HS po. Start rosuvastatin 5mg daily (recheck fasting lipid panel in 6 weeks) 05/31/2023: Increase clozapine to 100mg HS po. Discontinue risperidone. Blood work tomorrow AM. 05/30/2023: Continue with clozapine 75mg HS po. Taper risperidone to 0.5mg BID. ANC check for 03/31 and fasting glucose and lipid panel ordered. 05/29/2023: increase clozaril to 75 mg po qhs, given daytime fatigue will decrease Risperdal to 1 mg BID. fasting labs ordered for next CBC on 03/31. 05/28/2023: increase clozaril to 50 mg qhs, when get to 100 mg will taper Risperdal further, in meantime Cogentin is helpful. Next Haldol dec will be due 06/19 and likely give 150 mg if Risperdal tapered by then/EPS remains manageable. 05/27/2023: the patient has historically done best with clozaril and will begin when confirm housing, status with CM, and ability to continue rx with [place]. 05/26/2023: The patient was admitted to the [facility] ([facility] mental [facility] unit) on q15 min checks (behavioral with suicide precautions) for safety. The patient will participate in group, recreational, and milieu therapies and will be offered additional individual and family sessions as clinically appropriate. Would benefit from restart of Clozaril, will need to start Risperdal taper, only got 100 mg Haldol dec, will offer Haldol prn rather than standing until better control of dystonia/dysarthria with Cogentin. Need to confirm his status with [place] and ability to be monitored again with clozaril and retitrate. hold on fasting labs for now. Inventory Assets Strengths: help seeking, has been receptive to care in the past Needs: reestablish footing in community, management of antipsychotics Suicide Risk Level Suicide Risk Level: Moderate (q15 min suicide checks) (SI prior to admission and depressed mood, mood improving and feels safe in the hospital, agrees to let staff know if he feels unable to remain safe or requires additional support) Risk Factors Assessment Male: Yes Do You Have Access To A Gun?: No Mental Health Diagnoses: Yes Previous Psychiatric Hospitalization: Yes Protective Factors Assessment Employed: No (varying reports, must clarify) Interval History Identifying Information LEXII TEE is a 32-year-old M who currently states he's homeless, well known to from multiple inpatient stays for schizophrenia, and was admitted on 05/26/23 01:45 on a 201 voluntary commitment for SI and disorganized behavior. Chief Complaint "Fine thank you". Review of Systems Sleep Information Total Hours of Sleep: 4.25 Meal Information Percent Meal Consumed - Breakfast: 100 Percent Meal Consumed - Lunch: 100 Percent Meal Consumed - Dinner: 100 Subjective Subjective Patient was seen & assessed and interval progress reviewed with treatment team nursing and social work. Slept most of the evening but woke for dinner. This morning ate breakfast and awake. Reports feeling more "sluggish" this morning which he attributes to the clozapine. Denies any side effects from haldol decanoate. Still voices belief that he is 17 and that his birthdate is incorrect and that he needs to get his new certificate/SS card from witness protection program. Physical Exam Psychiatric Orientation: alert and oriented x 3 Apperance: appropriately groomed Eye Contact: + fair eye contact Motor Behavior: no abnormal motor movements Speech: + abnormal rate/rhythm/volume of speech (slow, stutters at times) Affect: + anxious affect and + blunted affect Mood: + anxious mood Thought Process: + tangential thought process and + looseness of associations Thought Content: + paranoid and + delusions Suicidal Thoughts: denies suicidal thoughts, denies suicidal plan and denies suicidal intent Homicidal Thoughts: denies homicidal thoughts Hallucinations: + auditory hallucinations (appears to be responding to internal stimuli); no visual hallucinations Cognition: attention grossly intact and language grossly intact Insight: + severely impaired insight Judgment: + limited judgement Vital Signs (Past 24 Hours) Last Vital Signs Temp 36.6 C 06/14/23 06:32 Pulse 90 06/14/23 06:32 Resp 18 06/14/23 06:32 BP 114/75 06/14/23 06:32 Pulse Ox 98 06/14/23 06:32 O2 Del Method Room Air 06/14/23 06:32 Results & Data ([facility]) Current Inpatient Medications Current Inpatient Medications: Current Inpatient Medications Acetaminophen (Acetaminophen 325 Mg Tab) 650 mg PO Q4H PRN PRN Reason: Headache or Minor Fever Stop: 06/25/23 02:34 Al Hydrox/Mg Hydrox/Simethicone (Aluminum/Magnesium Susp 30 Ml Udc) 30 ml PO Q4H PRN PRN Reason: GI Upset Stop: 06/25/23 02:34 Benztropine Mesylate (Benztropine Mesylate 1 Mg Tab) 1 mg PO BID PRN PRN Reason: muscle stiffness/EPS Stop: 06/25/23 16:39 Clozapine (Clozapine 100 Mg Tab) 100 mg PO HS [facility]; Protocol Stop: 07/12/23 21:59 Last Admin: 06/13/23 21:15 Dose: 100 mg Docusate Sodium (Docusate Sodium 100 Mg Cap) 100 mg PO HS [facility] Stop: 07/02/23 21:59 Last Admin: 06/13/23 21:15 Dose: 100 mg Haloperidol (Haloperidol 5 Mg Tab) 5 mg PO Q4 PRN PRN Reason: Anxiety/Agitation Stop: 06/25/23 16:35 Lorazepam (Lorazepam 1 Mg Tab) 1 mg PO Q4 PRN PRN Reason: Anxiety Stop: 06/25/23 16:39 Magnesium Hydroxide (Magnesium Hydroxide Susp 30 Ml Udc) 30 ml PO DAILY PRN PRN Reason: Constipation Stop: 06/25/23 02:34 Rosuvastatin Calcium (Rosuvastatin Calcium 5 Mg Tab) 5 mg PO QAM [facility] Stop: 07/02/23 08:59 Last Admin: 06/14/23 08:42 Dose: 5 mg Sennosides (Senna 8.6 Mg Tab) 17.2 mg PO HS [facility] Stop: 07/02/23 21:59 Last Admin: 06/13/23 21:15 Dose: 17.2 mg Sodium Chloride (Sodium Chloride 0.65% Na Soln 45 Ml ([place])) 1 - 2 sprays NA PRN PRN PRN Reason: Nasal Dryness/Congestion Stop: 06/25/23 02:34 Mental Health & Subst Abuse Tx Psychiatrist Name of Psychiatrist: Katie Wilson PA-C Psychiatrist's Date Of Appointment With Psychiatric Provider: 07/01/21 Time of Appointment with Psychiatrist: 2:30pm Therapist Name of Therapist: N/A was supposed to follow galen/ Katie Mine Exploration Engineer Name of Mine Exploration Engineer: N/A but "would like to get it set up" (1) Schizophrenia Schizophrenia type: paranoid schizophrenia Qualified Code(s): F20.0 - Paranoid schizophrenia
[2023-06-14] MEDS: SENNA 8.6 MG TAB PO SCH (21:31)
[2023-06-14] MEDS: cloZAPine 100 MG TAB PO SCH (21:31)
[2023-06-14] MEDS: DOCUSATE SODIUM 100 MG CAP PO SCH (21:31)
[2023-06-15] MEDS: ROSUVASTATIN CALCIUM 5 MG TAB PO SCH (08:38)
[2023-06-15 08:44] LABS: Basophils # (auto) 0.07 K/uL (0.00-0.20); Eosinophils # (auto) 0.17 K/uL (0.00-0.50); Eosinophils % (auto) 2.4 %; Hematocrit (blood only) 40.5 % (42.0-52.0); Hemoglobin 13.5 g/dl (14.0-18.0); Immature Granulocytes # (auto) 0.02 K/uL (0.01-0.20); Immature Granulocytes % (auto) 0.3 %; Lymphocytes # (auto) 2.06 K/uL (1.20-3.40); Lymphocytes % (auto) 29.4 %; Mean Corpuscular Hgb Conc 33.3 g/dL (32.0-36.0); Mean Corpuscular Volume 86.9 fL (80.0-100.0); Mean Platelet Volume 10.1 fL (9.4-12.4); Monocytes # (auto) 0.57 K/uL (0.11-0.59); Monocytes % (auto) 8.1 %; Neutrophils # (auto) 4.11 K/uL (1.40-6.50); Neutrophils % (auto) 58.8 %; Platelet Count 317 K/uL (130-400); RDW Coefficient of Variation 14.8 % (11.5-14.5); RDW Standard Deviation 47.5 fL (36.4-46.3); Red Blood Count 4.66 M/uL (4.70-6.10)
--- NOTE | 2023-06-15 09:22 | Psychiatric Progress Note ---
Date of Service June 15, 2023 Impression / Recommendations Impression 32 yo man with history of schizophrenia with long history of paranoid and disorganized behavior, recent hospitalization who presents with ongoing disorganization and no safe disposition. 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 No evidence of side effects to haldol decanoate nor higher dose of clozapine except for increased sleep but awake throughout the day. ANC reviewed and normal, remains stable for ongoing clozapine treatment. Overall, I spent a total of 25 minutes with this case including review of chart records, direct evaluation of the patient at bedside, counseling the patient, discussion during interdisciplinary treatment rounds, risk assessment, and documentation in the electronic health record. (1) Schizophrenia: (2) HLD (hyperlipidemia): (3) Prediabetes: Plan 06/15/2023: Continue clozapine 100mg HS. 06/14/2023: Continue clozapine 100mg HS. 06/13/2023: Continue clozapine 100mg HS,may require further dose titration if psychosis doesn't respond to haldol CONDE 06/12/2023: * clozapine increased to 100mg HS * depot haloperidol CONDE 150mg 06/11/2023: * continue clozapine 75 mg QHS - reduced 06/02/2023 from 100 mg 06/10/2023: * continue clozapine 75 mg QHS - reduced 06/02/2023 from 100 mg 06/09/2023: * continue clozapine 75 mg QHS - reduced 06/02/2023 from 100 mg 06/08/2023: * continue clozapine 75 mg QHS - reduced 06/02/2023 from 100 mg 06/07/2023: * continue clozapine 75 mg QHS - reduced 06/02/2023 from 100 mg 06/06/2023: * continue clozapine 75 mg QHS - reduced 06/02/2023 from 100 mg 06/05/2023: Continue current medications and tx plan. 06/04/2023: Continue current medications and tx plan. 06/03/2023: Continue current medications and tx plan. 06/02/2023: Decrease clozapine to 75mg HS. Discontinue cogentin, leave available as prn. Start scheduled colace and senna given use of clozapine. 06/01/2023: Continue clozapine 100mg HS po. Start rosuvastatin 5mg daily (recheck fasting lipid panel in 6 weeks) 05/31/2023: Increase clozapine to 100mg HS po. Discontinue risperidone. Blood work tomorrow AM. 05/30/2023: Continue with clozapine 75mg HS po. Taper risperidone to 0.5mg BID. ANC check for 03/31 and fasting glucose and lipid panel ordered. 05/29/2023: increase clozaril to 75 mg po qhs, given daytime fatigue will decrease Risperdal to 1 mg BID. fasting labs ordered for next CBC on 03/31. 05/28/2023: increase clozaril to 50 mg qhs, when get to 100 mg will taper Risperdal further, in meantime Cogentin is helpful. Next Haldol dec will be due 06/19 and likely give 150 mg if Risperdal tapered by then/EPS remains manageable. 05/27/2023: the patient has historically done best with clozaril and will begin when confirm housing, status with CM, and ability to continue rx with [place]. 05/26/2023: The patient was admitted to the [facility] ([facility] mental health unit) on q15 min checks (behavioral with suicide precautions) for safety. The patient will participate in group, recreational, and milieu therapies and will be offered additional individual and family sessions as clinically appropriate. Would benefit from restart of Clozaril, will need to start Risperdal taper, only got 100 mg Haldol dec, will offer Haldol prn rather than standing until better control of dystonia/dysarthria with Cogentin. Need to confirm his status with [place] and ability to be monitored again with clozaril and retitrate. hold on fasting labs for now. Inventory Assets Strengths: help seeking, has been receptive to care in the past Needs: reestablish footing in community, management of antipsychotics Suicide Risk Level Suicide Risk Level: Moderate (q15 min suicide checks) (SI prior to admission and depressed mood, mood improving and feels safe in the hospital, agrees to let staff know if he feels unable to remain safe or requires additional support) Risk Factors Assessment Male: Yes Do You Have Access To A Gun?: No Mental Health Diagnoses: Yes Previous Psychiatric Hospitalization: Yes Protective Factors Assessment Employed: No (varying reports, must clarify) Interval History Identifying Information ABDULAZEEZ RANDAL is a 32-year-old M who currently states he's homeless, well known to [facility] from multiple inpatient stays for schizophrenia, and was admitted on 05/26/23 01:45 on a 201 voluntary commitment for SI and disorganized behavior. Chief Complaint "fine thank you". Review of Systems Sleep Information Total Hours of Sleep: 11 Meal Information Percent Meal Consumed - Breakfast: 100 Percent Meal Consumed - Lunch: 100 Percent Meal Consumed - Dinner: 100 Subjective Subjective Patient was seen & assessed and interval progress reviewed with treatment team nursing and social work. Played Stewart last night but otherwise largely withdrawn walking in the halls. Today spent most of his time in his room or walking in the halls. Seems less focused on concerns about his age. Tolerating his medications without any side effects. Physical Exam Psychiatric Orientation: alert and oriented x 3 Apperance: appropriately groomed Eye Contact: + fair eye contact Motor Behavior: no abnormal motor movements Speech: + abnormal rate/rhythm/volume of speech (slow, stutters at times) Affect: + blunted affect Mood: no depressed mood and no anxious mood Thought Process: clear/coherent thought process and + concrete thought process Thought Content: reality based without delusions Suicidal Thoughts: denies suicidal thoughts, denies suicidal plan and denies suicidal intent Homicidal Thoughts: denies homicidal thoughts Hallucinations: no auditory hallucinations and no visual hallucinations Cognition: attention grossly intact and language grossly intact Insight: + limited insight Judgment: + limited judgement Vital Signs (Past 24 Hours) Last Vital Signs Temp 36.9 C 06/15/23 06:43 Pulse 98 H 06/15/23 06:43 Resp 16 06/15/23 06:43 BP 113/77 06/15/23 06:43 Pulse Ox 98 06/14/23 06:32 O2 Del Method Room Air 06/14/23 06:32 Results & Data ([facility]) Laboratory Results Laboratory Results - last 24 hr 06/15/23 08:17 WBC 7.00 RBC 4.66 L Hgb 13.5 L Hct 40.5 L MCV 86.9 MCH 29.0 MCHC 33.3 RDW Std Deviation 47.5 H RDW Coeff of Tawanna 14.8 H Plt Count 317 MPV 10.1 Immature Gran % (Auto) 0.3 Neut % (Auto) 58.8 Lymph % (Auto) 29.4 [place] % (Auto) 8.1 Eos % (Auto) 2.4 Baso % (Auto) 1.0 Neut # (Auto) 4.11 Lymph # (Auto) 2.06 [place] # (Auto) 0.57 Eos # (Auto) 0.17 Baso # (Auto) 0.07 Immature Gran # (Auto) 0.02 Current Inpatient Medications Current Inpatient Medications: Current Inpatient Medications Acetaminophen (Acetaminophen 325 Mg Tab) 650 mg PO Q4H PRN PRN Reason: Headache or Minor Fever Stop: 06/25/23 02:34 Al Hydrox/Mg Hydrox/Simethicone (Aluminum/Magnesium Susp 30 Ml Udc) 30 ml PO Q4H PRN PRN Reason: GI Upset Stop: 06/25/23 02:34 Benztropine Mesylate (Benztropine Mesylate 1 Mg Tab) 1 mg PO BID PRN PRN Reason: muscle stiffness/EPS Stop: 06/25/23 16:39 Clozapine (Clozapine 100 Mg Tab) 100 mg PO HS [facility]; Protocol Stop: 07/12/23 21:59 Last Admin: 06/14/23 21:31 Dose: 100 mg Docusate Sodium (Docusate Sodium 100 Mg Cap) 100 mg PO HS [facility] Stop: 07/02/23 21:59 Last Admin: 06/14/23 21:31 Dose: 100 mg Haloperidol (Haloperidol 5 Mg Tab) 5 mg PO Q4 PRN PRN Reason: Anxiety/Agitation Stop: 06/25/23 16:35 Lorazepam (Lorazepam 1 Mg Tab) 1 mg PO Q4 PRN PRN Reason: Anxiety Stop: 06/25/23 16:39 Magnesium Hydroxide (Magnesium Hydroxide Susp 30 Ml Udc) 30 ml PO DAILY PRN PRN Reason: Constipation Stop: 06/25/23 02:34 Rosuvastatin Calcium (Rosuvastatin Calcium 5 Mg Tab) 5 mg PO QAM [facility] Stop: 07/02/23 08:59 Last Admin: 06/15/23 08:38 Dose: 5 mg Sennosides (Senna 8.6 Mg Tab) 17.2 mg PO HS [facility] Stop: 07/02/23 21:59 Last Admin: 06/14/23 21:31 Dose: 17.2 mg Sodium Chloride (Sodium Chloride 0.65% Na Soln 45 Ml ([place])) 1 - 2 sprays NA PRN PRN PRN Reason: Nasal Dryness/Congestion Stop: 06/25/23 02:34 Mental Health & Subst Abuse Tx Psychiatrist Name of Psychiatrist: Katie Wilson PA-C Psychiatrist's Date Of Appointment With Psychiatric Provider: 07/01/21 Time of Appointment with Psychiatrist: 2:30pm Therapist Name of Therapist: N/A was supposed to follow w/ Katie Video Production Assistant Name of Video Production Assistant: N/A but "would like to get it set up" (1) Schizophrenia Schizophrenia type: paranoid schizophrenia Qualified Code(s): F20.0 - Paranoid schizophrenia
[2023-06-15] MEDS: cloZAPine 100 MG TAB PO SCH (21:08)
[2023-06-15] MEDS: DOCUSATE SODIUM 100 MG CAP PO SCH (21:10)
[2023-06-15] MEDS: SENNA 8.6 MG TAB PO SCH (21:10)
[2023-06-16] MEDS: ROSUVASTATIN CALCIUM 5 MG TAB PO SCH (08:55)
--- NOTE | 2023-06-16 09:31 | Psychiatric Progress Note ---
Date of Service June 16, 2023 Impression / Recommendations Impression 32 yo man with history of schizophrenia with long history of paranoid and disorganized behavior, recent hospitalization who presents with ongoing disorganization and no safe disposition. MNPR due to psychosis, difficulty tolerating extended interactions with peers 06/16/2023: Ongoing delusion about his age/birthdate but less focused on this. Agreeable with transition to 304 commitment to allow for ongoing inpatient treatment at [facility]. Some side effects from clozapine but tolerable at this time and no evidence for excessive sedation, was awake all day and walking in the halls and participated in a few groups. Overall, I spent a total of 60 minutes with this case including review of chart records, direct evaluation of the patient at bedside, counseling the patient, discussion during interdisciplinary treatment rounds, risk assessment, completion of 304 commitment hearing paperwork and documentation in the electronic health record. (1) Schizophrenia: (2) HLD (hyperlipidemia): (3) Prediabetes: Plan 06/16/2023: Continue clozapine 100mg HS. 304 commitment paperwork completed for hearing tomorrow. 06/15/2023: Continue clozapine 100mg HS. 06/14/2023: Continue clozapine 100mg HS. 06/13/2023: Continue clozapine 100mg HS,may require further dose titration if psychosis doesn't respond to haldol CONDE 06/12/2023: * clozapine increased to 100mg HS * depot haloperidol CONDE 150mg 06/11/2023: * continue clozapine 75 mg QHS - reduced 06/02/2023 from 100 mg 06/10/2023: * continue clozapine 75 mg QHS - reduced 06/02/2023 from 100 mg 06/09/2023: * continue clozapine 75 mg QHS - reduced 06/02/2023 from 100 mg 06/08/2023: * continue clozapine 75 mg QHS - reduced 06/02/2023 from 100 mg 06/07/2023: * continue clozapine 75 mg QHS - reduced 06/02/2023 from 100 mg 06/06/2023: * continue clozapine 75 mg QHS - reduced 06/02/2023 from 100 mg 06/05/2023: Continue current medications and tx plan. 06/04/2023: Continue current medications and tx plan. 06/03/2023: Continue current medications and tx plan. 06/02/2023: Decrease clozapine to 75mg HS. Discontinue cogentin, leave available as prn. Start scheduled colace and senna given use of clozapine. 06/01/2023: Continue clozapine 100mg HS po. Start rosuvastatin 5mg daily (recheck fasting lipid panel in 6 weeks) 05/31/2023: Increase clozapine to 100mg HS po. Discontinue risperidone. Blood work tomorrow AM. 05/30/2023: Continue with clozapine 75mg HS po. Taper risperidone to 0.5mg BID. ANC check for 03/31 and fasting glucose and lipid panel ordered. 05/29/2023: increase clozaril to 75 mg po qhs, given daytime fatigue will decrease Risperdal to 1 mg BID. fasting labs ordered for next CBC on 03/31. 05/28/2023: increase clozaril to 50 mg qhs, when get to 100 mg will taper R isperdal further, in meantime Cogentin is helpful. Next Haldol dec will be due 06/19 and likely give 150 mg if Risperdal tapered by then/EPS remains manageable. 05/27/2023: the patient has historically done best with clozaril and will begin when confirm housing, status with CM, and ability to continue rx with [facility]. 05/26/2023: The patient was admitted to the [facility] ([facility] unit) on q15 min checks (behavioral with suicide precautions) for safety. The patient will participate in group, recreational, and milieu therapies and will be offered additional individual and family sessions as clinically appropriate. Would benefit from restart of Clozaril, will need to start Risperdal taper, only got 100 mg Haldol dec, will offer Haldol prn rather than standing until better control of dystonia/dysarthria with Cogentin. Need to confirm his status with [facility] and ability to be monitored again with clozaril and retitrate. hold on fasting labs for now. Inventory Assets Strengths: help seeking, has been receptive to care in the past Needs: reestablish footing in community, management of antipsychotics Suicide Risk Level Suicide Risk Level: Moderate (q15 min suicide checks) (SI prior to admission and depressed mood, mood improving and feels safe in the hospital, agrees to let staff know if he feels unable to remain safe or requires additional support) Risk Factors Assessment Male: Yes Do You Have Access To A Gun?: No Mental Health Diagnoses: Yes Previous Psychiatric Hospitalization: Yes Protective Factors Assessment Employed: No (varying reports, must clarify) Interval History Identifying Information LEXII TEE is a 32-year-old M who currently states he's homeless, well known to 3S from multiple inpatient stays for schizophrenia, and was admitted on 05/26/23 01:45 on a 201 voluntary commitment for SI and disorganized behavior. Chief Complaint "I don't have any issue with the 304". Review of Systems Sleep Information Total Hours of Sleep: 6.5 Meal Information Percent Meal Consumed - Breakfast: 100 Percent Meal Consumed - Lunch: 100 Percent Meal Consumed - Dinner: 100 Subjective Subjective Patient was seen & assessed and interval progress reviewed with treatment team nursing and social work. 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 Still believes his age is incorrect and needs a new certificate but agrees that his birthday may be tomorrow "or in March". More sedation this morning and some drooling last night from clozapine but he denies any other side effects. He's agreeable with 304 commitment to allow for plan for extended acute inpatient treatment at [facility] once bed available. Physical Exam Psychiatric Orientation: alert and oriented x 3 Apperance: appropriately groomed Eye Contact: + fair eye contact Motor Behavior: no abnormal motor movements Speech: + abnormal rate/rhythm/volume of speech (slow, stutters at times) Affect: + blunted affect Mood: no depressed mood and no anxious mood Thought Process: clear/coherent thought process and + concrete thought process Thought Content: + delusions Suicidal Thoughts: denies suicidal thoughts, denies suicidal plan and denies suicidal intent Homicidal Thoughts: denies homicidal thoughts Hallucinations: no auditory hallucinations and no visual hallucinations Cognition: attention grossly intact and language grossly intact Insight: + limited insight Judgment: + limited judgement Vital Signs (Past 24 Hours) Last Vital Signs Temp 36.7 C 06/16/23 06:35 Pulse 103 H 06/16/23 06:36 Resp 16 06/16/23 06:35 BP 114/80 06/16/23 06:36 Pulse Ox 98 06/14/23 06:32 O2 Del Method Room Air 06/14/23 06:32 Results & Data ([facility]) Current Inpatient Medications Current Inpatient Medications: Current Inpatient Medications Acetaminophen (Acetaminophen 325 Mg Tab) 650 mg PO Q4H PRN PRN Reason: Headache or Minor Fever Stop: 06/25/23 02:34 Al Hydrox/Mg Hydrox/Simethicone (Aluminum/Magnesium Susp 30 Ml Udc) 30 ml PO Q4H PRN PRN Reason: GI Upset Stop: 06/25/23 02:34 Benztropine Mesylate (Benztropine Mesylate 1 Mg Tab) 1 mg PO BID PRN PRN Reason: muscle stiffness/EPS Stop: 06/25/23 16:39 Clozapine (Clozapine 100 Mg Tab) 100 mg PO HS [facility]; Protocol Stop: 07/12/23 21:59 Last Admin: 06/15/23 21:08 Dose: 100 mg Docusate Sodium (Docusate Sodium 100 Mg Cap) 100 mg PO [facility] Stop: 07/02/23 21:59 Last Admin: 06/15/23 21:10 Dose: 100 mg Haloperidol (Haloperidol 5 Mg Tab) 5 mg PO Q4 PRN PRN Reason: Anxiety/Agitation Stop: 06/25/23 16:35 Lorazepam (Lorazepam 1 Mg Tab) 1 mg PO Q4 PRN PRN Reason: Anxiety Stop: 06/25/23 16:39 Magnesium Hydroxide (Magnesium Hydroxide Susp 30 Ml Udc) 30 ml PO DAILY PRN PRN Reason: Constipation Stop: 06/25/23 02:34 Rosuvastatin Calcium (Rosuvastatin Calcium 5 Mg Tab) [facility] Stop: 07/02/23 08:59 Last Admin: 06/16/23 08:55 Dose: 5 mg Sennosides (Senna 8.6 Mg Tab) 17.2 mg PO HS [facility] Stop: 07/02/23 21:59 Last Admin: 06/15/23 21:10 Dose: 17.2 mg Sodium Chloride (Sodium Chloride 0.65% Na Soln 45 Ml ([place])) 1 - 2 sprays NA PRN PRN PRN Reason: Nasal Dryness/Congestion Stop: 06/25/23 02:34 Mental Health & Subst Abuse Tx Psychiatrist Name of Psychiatrist: Katie Wilson PA-C Psychiatrist's Date Of Appointment With Psychiatric Provider: 07/01/21 Time of Appointment with Psychiatrist: 2:30pm Therapist Name of Therapist: N/A was supposed to follow w/ [facility] Supervisor [employer] Name of Supervisor [employer]: N/A but "would like to get it set up" (1) Schizophrenia Schizophrenia type: paranoid schizophrenia Qualified Code(s): F20.0 - Paranoid schizophrenia
[2023-06-16] MEDS: cloZAPine 100 MG TAB PO SCH (20:49)
[2023-06-16] MEDS: SENNA 8.6 MG TAB PO SCH (20:49)
[2023-06-16] MEDS: DOCUSATE SODIUM 100 MG CAP PO SCH (20:49)
[2023-06-17] MEDS: ROSUVASTATIN CALCIUM 5 MG TAB PO SCH (08:40)
--- NOTE | 2023-06-17 09:22 | Psychiatric Progress Note ---
Date of Service June 17, 2023 Impression / Recommendations Impression 32 yo man with history of schizophrenia with long history of paranoid and disorganized behavior, recent hospitalization who presents with ongoing disorganization and no safe disposition. Now on 304 commitment. 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 I participated in his 304 commitment hearing and 304 granted. Still with some morning fatigue from clozapine but no other signs of excessive sedation during the day and he's willing to continue with this. Overall, I spent a total of 60 minutes with this case including review of chart records, direct evaluation of the patient at bedside, counseling the patient, discussion during interdisciplinary treatment rounds, risk assessment, participation in the 304 commitment hearing and documentation in the electronic health record. (1) Schizophrenia: (2) HLD (hyperlipidemia): (3) Prediabetes: Plan 06/17/2023: Continue clozapine 100mg HS. Now on 304 commitment. 06/16/2023: Continue clozapine 100mg HS. 304 commitment paperwork completed for hearing tomorrow. 06/15/2023: Continue clozapine 100mg HS. 06/14/2023: Continue clozapine 100mg HS. 06/13/2023: Continue clozapine 100mg HS,may require further dose titration if psychosis doesn't respond to haldol CONDE 06/12/2023: * clozapine increased to 100mg HS * depot haloperidol CONDE 150mg 06/11/2023: * continue clozapine 75 mg QHS - reduced 06/02/2023 from 100 mg 06/10/2023: * continue clozapine 75 mg QHS - reduced 06/02/2023 from 100 mg 06/09/2023: * continue clozapine 75 mg QHS - reduced 06/02/2023 from 100 mg 06/08/2023: * continue clozapine 75 mg QHS - reduced 06/02/2023 from 100 mg 06/07/2023: * continue clozapine 75 mg QHS - reduced 06/02/2023 from 100 mg 06/06/2023: * continue clozapine 75 mg QHS - reduced 06/02/2023 from 100 mg 06/05/2023: Continue current medications and tx plan. 06/04/2023: Continue current medications and tx plan. 06/03/2023: Continue current medications and tx plan. 06/02/2023: Decrease clozapine to 75mg HS. Discontinue cogentin, leave available as prn. Start scheduled colace and senna given use of clozapine. 06/01/2023: Continue clozapine 100mg HS po. Start rosuvastatin 5mg daily (recheck fasting lipid panel in 6 weeks) 05/31/2023: Increase clozapine to 100mg HS po. Discontinue risperidone. Blood work tomorrow AM. 05/30/2023: Continue with clozapine 75mg HS po. Taper risperidone to 0.5mg BID. ANC check for 03/31 and fasting glucose and lipid panel ordered. 05/29/2023: increase clozaril to 75 mg po qhs, given daytime fatigue will decrease Risperdal to 1 mg BID. fasting labs ordered for next CBC on 03/31. 05/28/2023: increase clozaril to 50 mg qhs, when get to 100 mg will taper Risperdal further, in meantime Cogentin is helpful. Next Haldol dec will be due 06/19 and likely give 150 mg if Risperdal tapered by then/EPS remains manageable. 05/27/2023: the patient has historically done best with clozaril and will begin when confirm housing, status with CM, and ability to continue rx with [facility]. 05/26/2023: The patient was admitted to the [facility] ([facility]) on q15 min checks (behavioral with suicide precautions) for safety. The patient will participate in group, recreational, and milieu therapies and will be offered additional individual and family sessions as clinically appropriate. Would benefit from restart of Clozaril, will need to start Risperdal taper, only got 100 mg Haldol dec, will offer Haldol prn rather than standing until better control of dystonia/dysarthria with Cogentin. Need to confirm his status with [facility] and ability to be monitored again with clozaril and retitrate. hold on fasting labs for now. Inventory Assets Strengths: help seeking, has been receptive to care in the past Needs: reestablish footing in community, management of antipsychotics Suicide Risk Level Suicide Risk Level: Moderate (q15 min suicide checks) (SI prior to admission and depressed mood, mood improving and feels safe in the hospital, agrees to let staff know if he feels unable to remain safe or requires additional support) Risk Factors Assessment Male: Yes Do You Have Access To A Gun?: No Mental Health Diagnoses: Yes Previous Psychiatric Hospitalization: Yes Protective Factors Assessment Employed: No (varying reports, must clarify) Interval History Identifying Information LEXII TEE is a 32-year-old M who currently states he's homeless, well known to 3S from multiple inpatient stays for schizophrenia, and was admitted on 05/26/23 01:45 on a 201 voluntary commitment for SI and disorganized behavior. Chief Complaint "I felt very tired this morning". Review of Systems Sleep Information Total Hours of Sleep: 6.5 Meal Information Percent Meal Consumed - Breakfast: 100 Percent Meal Consumed - Lunch: 100 Percent Meal Consumed - Dinner: 100 Subjective Subjective Patient was seen & assessed and interval progress reviewed with treatment team nursing and social work. 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 Today agrees it is his birthday. Had some fatigue this morning which he attributes to clozapine, denies any other side effects. He declined to participate in 304 hearing. Physical Exam Psychiatric Orientation: alert and oriented x 3 Apperance: appropriately groomed Eye Contact: + fair eye contact Motor Behavior: no abnormal motor movements Speech: + abnormal rate/rhythm/volume of speech (slow, stutters at times) Affect: + blunted affect Mood: no depressed mood and no anxious mood Thought Process: clear/coherent thought process and + concrete thought process Thought Content: + delusions Suicidal Thoughts: denies suicidal thoughts, denies suicidal plan and denies suicidal intent Homicidal Thoughts: denies homicidal thoughts Hallucinations: no auditory hallucinations and no visual hallucinations Cognition: attention grossly intact and language grossly intact Insight: + limited insight Judgment: + limited judgement Vital Signs (Past 24 Hours) Last Vital Signs Temp 37 C 06/17/23 06:39 Pulse 109 H 06/17/23 06:39 Resp 16 06/17/23 06:39 BP 128/89 06/17/23 06:39 Pulse Ox 98 06/14/23 06:32 O2 Del Method Room Air 06/14/23 06:32 Results & Data (U) Current Inpatient Medications Current Inpatient Medications: Current Inpatient Medications Acetaminophen (Acetaminophen 325 Mg Tab) 650 mg PO Q4H PRN PRN Reason: Headache or Minor Fever Stop: 06/25/23 02:34 Al Hydrox/Mg Hydrox/Simethicone (Aluminum/Magnesium Susp 30 Ml Udc) 30 ml PO Q4H PRN PRN Reason: GI Upset Stop: 06/25/23 02:34 Benztropine Mesylate (Benztropine Mesylate 1 Mg Tab) 1 mg PO BID PRN PRN Reason: muscle stiffness/EPS Stop: 06/25/23 16:39 Clozapine (Clozapine 100 Mg Tab) 100 mg PO HS [facility]; Protocol Stop: 07/12/23 21:59 Last Admin: 06/16/23 20:49 Dose: 100 mg Docusate Sodium (Docusate Sodium 100 Mg Cap) 100 mg PO HS [facility] Stop: 07/02/23 21:59 Last Admin: 06/16/23 20:49 Dose: 100 mg Haloperidol (Haloperidol 5 Mg Tab) 5 mg PO Q4 PRN PRN Reason: Anxiety/Agitation Stop: 06/25/23 16:35 Lorazepam (Lorazepam 1 Mg Tab) 1 mg PO Q4 PRN PRN Reason: Anxiety Stop: 06/25/23 16:39 Magnesium Hydroxide (Magnesium Hydroxide Susp 30 Ml Udc) 30 ml PO DAILY PRN PRN Reason: Constipation Stop: 06/25/23 02:34 Rosuvastatin Calcium (Rosuvastatin Calcium 5 Mg Tab) [facility] [place] Stop: 07/02/23 08:59 Last Admin: 06/17/23 08:40 Dose: 5 mg Sennosides (Senna 8.6 Mg Tab) 17.2 mg PO HS [facility] Stop: 07/02/23 21:59 Last Admin: 06/16/23 20:49 Dose: 17.2 mg Sodium Chloride (Sodium Chloride 0.65% Na Soln 45 Ml ([place])) 1 - 2 sprays NA PRN PRN PRN Reason: Nasal Dryness/Congestion Stop: 06/25/23 02:34 Mental Health & Subst Abuse Tx Psychiatrist Name of Psychiatrist: Katie Wilson PA-C Psychiatrist's Date Of Appointment With Psychiatric Provider: 07/01/21 Time of Appointment with Psychiatrist: 2:30pm Therapist Name of Therapist: N/A was supposed to follow w/ Katie Cold Header Name of Cold Header: N/A but "would like to get it set up" (1) Schizophrenia Schizophrenia type: paranoid schizophrenia Qualified Code(s): F20.0 - Paranoid schizophrenia
[2023-06-17] MEDS: DOCUSATE SODIUM 100 MG CAP PO SCH (21:30)
[2023-06-17] MEDS: SENNA 8.6 MG TAB PO SCH (21:30)
[2023-06-17] MEDS: cloZAPine 100 MG TAB PO SCH (21:30)
[2023-06-18 06:39] VITALS: O2SAT 97
[2023-06-18] MEDS: ROSUVASTATIN CALCIUM 5 MG TAB PO SCH (08:43)
--- NOTE | 2023-06-18 09:21 | Psychiatric Progress Note ---
Date of Service June 18, 2023 Impression / Recommendations Impression 32 yo man with history of schizophrenia with long history of paranoid and disorganized behavior, recent hospitalization who presents with ongoing disorganization and no safe disposition. Now on 304 commitment. MNPR due to psychosis, difficulty tolerating extended interactions with peers 06/18/2023: He doesn't vocalize any acute delusions today but still observed to be responding to internal stimuli at times. Still with some morning fatigue from clozapine but no other signs of excessive sedation during the day and he's willing to continue with this. Overall, I spent a total of 25 minutes with this case including review of chart records, direct evaluation of the patient at bedside, counseling the patient, discussion during interdisciplinary treatment rounds, risk assessment, and documentation in the electronic health record. (1) Schizophrenia: (2) HLD (hyperlipidemia): (3) Prediabetes: Plan 06/18/2023: Continue clozapine 100mg HS 06/17/2023: Continue clozapine 100mg HS. Now on 304 commitment. 06/16/2023: Continue clozapine 100mg HS. 304 commitment paperwork completed for hearing tomorrow. 06/15/2023: Continue clozapine 100mg HS. 06/14/2023: Continue clozapine 100mg HS. 06/13/2023: Continue clozapine 100mg HS,may require further dose titration if psychosis doesn't respond to haldol CONDE 06/12/2023: * clozapine increased to 100mg HS * depot haloperidol CONDE 150mg 06/11/2023: * continue clozapine 75 mg QHS - reduced 06/02/2023 from 100 mg 06/10/2023: * continue clozapine 75 mg QHS - reduced 06/02/2023 from 100 mg 06/09/2023: * continue clozapine 75 mg QHS - reduced 06/02/2023 from 100 mg 06/08/2023: * continue clozapine 75 mg QHS - reduced 06/02/2023 from 100 mg 06/07/2023: * continue clozapine 75 mg QHS - reduced 06/02/2023 from 100 mg 06/06/2023: * continue clozapine 75 mg QHS - reduced 06/02/2023 from 100 mg 06/05/2023: Continue current medications and tx plan. 06/04/2023: Continue current medications and tx plan. 06/03/2023: Continue current medications and tx plan. 06/02/2023: Decrease clozapine to 75mg HS. Discontinue cogentin, leave available as prn. Start scheduled colace and senna given use of clozapine. 06/01/2023: Continue clozapine 100mg HS po. Start rosuvastatin 5mg daily (recheck fasting lipid panel in 6 weeks) 05/31/2023: Increase clozapine to 100mg HS po. Discontinue risperidone. Blood w ork tomorrow AM. 05/30/2023: Continue with clozapine 75mg HS po. Taper risperidone to 0.5mg BID. ANC check for 03/31 and fasting glucose and lipid panel ordered. 05/29/2023: increase clozaril to 75 mg po qhs, given daytime fatigue will decrease Risperdal to 1 mg BID. fasting labs ordered for next CBC on 03/31. 05/28/2023: increase clozaril to 50 mg qhs, when get to 100 mg will taper Risperdal further, in meantime Cogentin is helpful. Next Haldol dec will be due 06/19 and likely give 150 mg if Risperdal tapered by then/EPS remains manageable. 05/27/2023: the patient has historically done best with clozaril and will begin when confirm housing, status with CM, and ability to continue rx with [facility]. 05/26/2023: The patient was admitted to the [facility] ([facility] mental health unit) on q15 min checks (behavioral with suicide precautions) for safety. The patient will participate in group, recreational, and milieu therapies and will be offered additional individual and family sessions as clinically appropriate. Would benefit from restart of Clozaril, will need to start Risperdal taper, only got 100 mg Haldol dec, will offer Haldol prn rather than standing until better control of dystonia/dysarthria with Cogentin. Need to confirm his status with [facility] and ability to be monitored again with clozaril and retitrate. hold on fasting labs for now. Inventory Assets Strengths: help seeking, has been receptive to care in the past Needs: reestablish footing in community, management of antipsychotics Suicide Risk Level Suicide Risk Level: Moderate (q15 min suicide checks) (SI prior to admission and depressed mood, mood improving and feels safe in the hospital, agrees to let staff know if he feels unable to remain safe or requires additional support) Risk Factors Assessment Male: Yes Do You Have Access To A Gun?: No Mental Health Diagnoses: Yes Previous Psychiatric Hospitalization: Yes Protective Factors Assessment Employed: No (varying reports, must clarify) Interval History Identifying Information LEXII TEE is a 32-year-old M who currently states he's homeless, well known to [facility] from multiple inpatient stays for schizophrenia, and was admitted on 05/26/23 01:45 on a 201 voluntary commitment for SI and disorganized behavior. Chief Complaint "fine thanks". Review of Systems Sleep Information Total Hours of Sleep: 7 Meal Information Percent Meal Consumed - Breakfast: 100 Percent Meal Consumed - Lunch: 100 Percent Meal Consumed - Dinner: 100 Subjective Subjective Patient was seen & assessed and interval progress reviewed with treatment team nursing and social work. In and out of group last evening but still walking the halls a lot and observed responding to internal stimuli. Today reports his mood is stable. Continues to feel "drowsy" due to clozapine but he is agreeable to continuing with this. Wants to pay his phone bill tomorrow. Physical Exam Psychiatric Orientation: alert and oriented x 3 Apperance: appropriately groomed Eye Contact: + fair eye contact Motor Behavior: no abnormal motor movements Speech: + abnormal rate/rhythm/volume of speech (slow, stutters at times) Affect: + blunted affect Mood: no depressed mood and no anxious mood Thought Process: clear/coherent thought process and + concrete thought process Thought Content: reality based without delusions Suicidal Thoughts: denies suicidal thoughts, denies suicidal plan and denies suicidal intent Homicidal Thoughts: denies homicidal thoughts Hallucinations: no auditory hallucinations and no visual hallucinations Cognition: attention grossly intact and language grossly intact Insight: + limited insight Judgment: + limited judgement Vital Signs (Past 24 Hours) Last Vital Signs Temp 36.4 C 06/18/23 06:37 Pulse 78 06/18/23 06:37 Resp 12 06/18/23 06:37 BP 156/88 H 06/18/23 06:38 Pulse Ox 97 06/18/23 06:37 O2 Del Method Room Air 06/18/23 06:37 Results & Data (U) Current Inpatient Medications Current Inpatient Medications: Current Inpatient Medications Acetaminophen (Acetaminophen 325 Mg Tab) 650 mg PO Q4H PRN PRN Reason: Headache or Minor Fever Stop: 06/25/23 02:34 Al Hydrox/Mg Hydrox/Simethicone (Aluminum/Magnesium Susp 30 Ml Udc) 30 ml PO Q4H PRN PRN Reason: GI Upset Stop: 06/25/23 02:34 Benztropine Mesylate (Benztropine Mesylate 1 Mg Tab) 1 mg PO BID PRN PRN Reason: muscle stiffness/EPS Stop: 06/25/23 16:39 Clozapine (Clozapine 100 Mg Tab) 100 mg PO HS [facility]; Protocol Stop: 07/12/23 21:59 Last Admin: 06/17/23 21:30 Dose: 100 mg Docusate Sodium (Docusate Sodium 100 Mg Cap) 100 mg PO HS [facility] Stop: 07/02/23 21:59 Last Admin: 06/17/23 21:30 Dose: 100 mg Haloperidol (Haloperidol 5 Mg Tab) 5 mg PO Q4 PRN PRN Reason: Anxiety/Agitation Stop: 06/25/23 16:35 Lorazepam (Lorazepam 1 Mg Tab) 1 mg PO Q4 PRN PRN Reason: Anxiety Stop: 06/25/23 16:39 Magnesium Hydroxide (Magnesium Hydroxide Susp 30 Ml Udc) 30 ml PO DAILY PRN PRN Reason: Constipation Stop: 06/25/23 02:34 Rosuvastatin Calcium (Ros[facility]astatin Calcium 5 Mg Tab) [facility] [place] Stop: 07/02/23 08:59 Last Admin: 06/18/23 08:43 Dose: 5 mg Sennosides (Senna 8.6 Mg Tab) 17.2 mg PO HS [facility] Stop: 07/02/23 21:59 Last Admin: 06/17/23 21:30 Dose: 17.2 mg Sodium Chloride (Sodium Chloride 0.65% Na Soln 45 Ml ([place])) 1 - 2 sprays NA PRN PRN PRN Reason: Nasal Dryness/Congestion Stop: 06/25/23 02:34 Mental Health & Subst Abuse Tx Psychiatrist Name of Psychiatrist: Katie Wilson PA-C Psychiatrist's Date Of Appointment With Psychiatric Provider: 07/01/21 Time of Appointment with Psychiatrist: 2:30pm Therapist Name of Therapist: N/A was supposed to follow w/ Katie Mushroom Cultivator Name of Mushroom Cultivator: N/A but "would like to get it set up" (1) Schizophrenia Schizophrenia type: paranoid schizophrenia Qualified Code(s): F20.0 - Paranoid schizophrenia
[2023-06-18] MEDS: DOCUSATE SODIUM 100 MG CAP PO SCH (21:10)
[2023-06-18] MEDS: SENNA 8.6 MG TAB PO SCH (21:11)
[2023-06-18] MEDS: cloZAPine 100 MG TAB PO SCH (21:12)
[2023-06-19] MEDS: ROSUVASTATIN CALCIUM 5 MG TAB PO SCH (08:47)
--- NOTE | 2023-06-19 09:03 | Psychiatric Progress Note ---
Date of Service June 19, 2023 Impression / Recommendations Impression 32 yo man with history of schizophrenia with long history of paranoid and disorganized behavior, recent hospitalization who presents with ongoing disorganization and no safe disposition. Now on 304 commitment. MNPR due to psychosis, difficulty tolerating extended interactions with peers 06/19/2023: Less internally preoccupied. Tolerating medications well. Plan for EAC when bed becomes available. Overall, I spent a total of 25 minutes with this case including review of chart records, direct evaluation of the patient at bedside, counseling the patient, discussion during interdisciplinary treatment rounds, risk assessment, and documentation in the electronic health record. (1) Schizophrenia: (2) HLD (hyperlipidemia): (3) Prediabetes: Plan 06/19/2023: Continue clozapine 100mg HS. 06/18/2023: Continue clozapine 100mg HS 06/17/2023: Continue clozapine 100mg HS. Now on 304 commitment. 06/16/2023: Continue clozapine 100mg HS. 304 commitment paperwork completed for hearing tomorrow. 06/15/2023: Continue clozapine 100mg HS. 06/14/2023: Continue clozapine 100mg HS. 06/13/2023: Continue clozapine 100mg HS,may require further dose titration if psychosis doesn't respond to haldol CONDE 06/12/2023: * clozapine increased to 100mg HS * depot haloperidol CONDE 150mg 06/11/2023: * continue clozapine 75 mg QHS - reduced 06/02/2023 from 100 mg 06/10/2023: * continue clozapine 75 mg QHS - reduced 06/02/2023 from 100 mg 06/09/2023: * continue clozapine 75 mg QHS - reduced 06/02/2023 from 100 mg 06/08/2023: * continue clozapine 75 mg QHS - reduced 06/02/2023 from 100 mg 06/07/2023: * continue clozapine 75 mg QHS - reduced 06/02/2023 from 100 mg 06/06/2023: * continue clozapine 75 mg QHS - reduced 06/02/2023 from 100 mg 06/05/2023: Continue current medications and tx plan. 06/04/2023: Continue current medications and tx plan. 06/03/2023: Continue current medications and tx plan. 06/02/2023: Decrease clozapine to 75mg HS. Discontinue cogentin, leave available as prn. Start scheduled colace and senna given use of clozapine. 06/01/2023: Continue clozapine 100mg HS po. Start rosuvastatin 5mg daily (recheck fasting lipid panel in 6 weeks) 05/31/2023: Increase clozapine to 100mg HS po. Discontinue risperidone. Blood work tomorrow AM. 05/30/2023: Continue with clozapine 75mg HS po. Taper risperidone to 0.5mg BID. ANC check for 03/31 and fasting glucose and lipid panel ordered. 05/29/2023: increase clozaril to 75 mg po qhs, given daytime fatigue will decrease Risperdal to 1 mg BID. fasting labs ordered for next CBC on 03/31. 05/28/2023: increase clozaril to 50 mg qhs, when get to 100 mg will taper Risperdal further, in meantime Cogentin is helpful. Next Haldol dec will be due 06/19 and likely give 150 mg if Risperdal tapered by then/EPS remains manageable. 05/27/2023: the patient has historically done best with clozaril and will begin when confirm housing, status with CM, and ability to continue rx with [facility]. 05/26/2023: The patient was admitted to the [facility] ([facility] inpatient mental health unit) on q15 min checks (behavioral with suicide precautions) for safety. The patient will participate in group, recreational, and milieu therapies and will be offered additional individual and family sessions as clinically appropriate. Would benefit from restart of Clozaril, will need to start Risperdal taper, only got 100 mg Haldol dec, will offer Haldol prn rather than standing until better control of dystonia/dysarthria with Cogentin. Need to confirm his status with [facility] and ability to be monitored again with clozaril and retitrate. hold on fasting labs for now. Inventory Assets Strengths: help seeking, has been receptive to care in the past Needs: reestablish footing in community, management of antipsychotics Suicide Risk Level Suicide Risk Level: Moderate (q15 min suicide checks) (SI prior to admission and depressed mood, mood improving and feels safe in the hospital, agrees to let staff know if he feels unable to remain safe or requires additional support) Risk Factors Assessment Male: Yes Do You Have Access To A Gun?: No Mental Health Diagnoses: Yes Previous Psychiatric Hospitalization: Yes Protective Factors Assessment Employed: No (varying reports, must clarify) Interval History Identifying Information LEXII TEE is a 32-year-old M who currently states he's homeless, well known to [facility] from multiple inpatient stays for schizophrenia, and was admitted on 05/26/23 01:45 on a 201 voluntary commitment for SI and disorganized behavior. Chief Complaint "I was a little droswy this morning but I think it will get better over time". Review of Systems Sleep Information Total Hours of Sleep: 6.75 Meal Information Percent Meal Consumed - Breakfast: 100 Percent Meal Consumed - Lunch: 100 Percent Meal Consumed - Dinner: 100 Subjective Subjective Patient was seen & assessed and interval progress reviewed with treatment team nursing and social work. Seems to be less internally preoccupied. Reports stable mood. Denies any new medication side effects. Not actively participating in groups but sitting near peers and appears to be listening and engaging at times. Physical Exam Psychiatric Orientation: alert and oriented x 3 Apperance: appropriately groomed Eye Contact: + fair eye contact Motor Behavior: no abnormal motor movements Speech: + abnormal rate/rhythm/volume of speech (slow, stutters at times) Affect: + blunted affect Mood: no depressed mood and no anxious mood Thought Process: clear/coherent thought process and + concrete thought process Thought Content: reality based without delusions Suicidal Thoughts: denies suicidal thoughts, denies suicidal plan and denies suicidal intent Homicidal Thoughts: denies homicidal thoughts Hallucinations: no auditory hallucinations and no visual hallucinations Cognition: attention grossly intact and language grossly intact Insight: + limited insight Judgment: + limited judgement Vital Signs (Past 24 Hours) Last Vital Signs Temp 36.7 C 06/19/23 06:00 Pulse 78 06/19/23 06:51 Resp 18 06/19/23 06:00 BP 110/78 06/19/23 06:51 Pulse Ox 97 06/18/23 06:37 O2 Del Method Room Air 06/18/23 06:37 Results & Data (U) Current Inpatient Medications Current Inpatient Medications: Current Inpatient Medications Acetaminophen (Acetaminophen 325 Mg Tab) 650 mg PO Q4H PRN PRN Reason: Headache or Minor Fever Stop: 06/25/23 02:34 Al Hydrox/Mg Hydrox/Simethicone (Aluminum/Magnesium Susp 30 Ml Udc) 30 ml PO Q4H PRN PRN Reason: GI Upset Stop: 06/25/23 02:34 Benztropine Mesylate (Benztropine Mesylate 1 Mg Tab) 1 mg PO BID PRN PRN Reason: muscle stiffness/EPS Stop: 06/25/23 16:39 Clozapine (Clozapine 100 Mg Tab) 100 mg PO HS [facility]; Protocol Stop: 07/12/23 21:59 Last Admin: 06/18/23 21:12 Dose: 100 mg Docusate Sodium (Docusate Sodium 100 Mg Cap) 100 mg PO HS [facility] Stop: 07/02/23 21:59 Last Admin: 06/18/23 21:10 Dose: 100 mg Haloperidol (Haloperidol 5 Mg Tab) 5 mg PO Q4 PRN PRN Reason: Anxiety/Agitation Stop: 06/25/23 16:35 Lorazepam (Lorazepam 1 Mg Tab) 1 mg PO Q4 PRN PRN Reason: Anxiety Stop: 06/25/23 16:39 Magnesium Hydroxide (Magnesium Hydroxide Susp 30 Ml Udc) 30 ml PO DAILY PRN PRN Reason: Constipation Stop: 06/25/23 02:34 Rosuvastatin Calcium (Rosuvastatin Calcium 5 Mg Tab) 5 mg PO QAM [facility] Stop: 07/02/23 08:59 Last Admin: 06/19/23 08:47 Dose: 5 mg Sennosides (Senna 8.6 Mg Tab) 17.2 mg PO HS [facility] Stop: 07/02/23 21:59 Last Admin: 06/18/23 21:11 Dose: 17.2 mg Sodium Chloride (Sodium Chloride 0.65% Na Soln 45 Ml ([place])) 1 - 2 sprays NA PRN PRN PRN Reason: Nasal Dryness/Congestion Stop: 06/25/23 02:34 Mental Health & Subst Abuse Tx Psychiatrist Name of Psychiatrist: Katie Wilson PA-C Psychiatrist's Date Of Appointment With Psychiatric Provider: 07/01/21 Time of Appointment with Psychiatrist: 2:30pm Therapist Name of Therapist: N/A was supposed to follow w/ Katie Reimbursement Manager Name of Reimbursement Manager: N/A but "would like to get it set up" (1) Schizophrenia Schizophrenia type: paranoid schizophrenia Qualified Code(s): F20.0 - Paranoid schizophrenia
[2023-06-19] MEDS: SENNA 8.6 MG TAB PO SCH (21:38)
[2023-06-19] MEDS: cloZAPine 100 MG TAB PO SCH (21:38)
[2023-06-19] MEDS: DOCUSATE SODIUM 100 MG CAP PO SCH (21:38)
[2023-06-20 06:42] VITALS: RESP 16
[2023-06-20] MEDS: ROSUVASTATIN CALCIUM 5 MG TAB PO SCH (08:45)
--- NOTE | 2023-06-20 14:29 | Psychiatric Progress Note ---
Date of Service June 20, 2023 Impression / Recommendations Impression 32 yo man with history of schizophrenia with long history of paranoid and disorganized behavior, recent hospitalization who presents with ongoing disorganization and no safe disposition. Now on 304 commitment. MNPR due to psychosis, difficulty tolerating extended interactions with peers 06/20/2023: improved since last contact, Plan for EAC when bed becomes available. Overall, I spent a total of 25 minutes with this case including review of chart records, direct evaluation of the patient at bedside, and documentation in the electronic health record. (1) Schizophrenia: (2) HLD (hyperlipidemia): (3) Prediabetes: Plan 06/20/23: should likely restart metformin given elevated A1c. Patient prefers to discuss tomorrow. 06/19/2023: Continue clozapine 100mg HS. 06/18/2023: Continue clozapine 100mg HS 06/17/2023: Continue clozapine 100mg HS. Now on 304 commitment. 06/16/2023: Continue clozapine 100mg HS. 304 commitment paperwork completed for hearing tomorrow. 06/15/2023: Continue clozapine 100mg HS. 06/14/2023: Continue clozapine 100mg HS. 06/13/2023: Continue clozapine 100mg HS,may require further dose titration if psychosis doesn't respond to haldol CONDE 06/12/2023: * clozapine increased to 100mg HS * depot haloperidol CONDE 150mg 06/11/2023: * continue clozapine 75 mg QHS - reduced 06/02/2023 from 100 mg 06/10/2023: * continue clozapine 75 mg QHS - reduced 06/02/2023 from 100 mg 06/09/2023: * continue clozapine 75 mg QHS - reduced 06/02/2023 from 100 mg 06/08/2023: * continue clozapine 75 mg QHS - reduced 06/02/2023 from 100 mg 06/07/2023: * continue clozapine 75 mg QHS - reduced 06/02/2023 from 100 mg 06/06/2023: * continue clozapine 75 mg QHS - reduced 06/02/2023 from 100 mg 06/05/2023: Continue current medications and tx plan. 06/04/2023: Continue current medications and tx plan. 06/03/2023: Continue current medications and tx plan. 06/02/2023: Decrease clozapine to 75mg HS. Discontinue cogentin, leave available as prn. Start scheduled colace and senna given use of clozapine. 06/01/2023: Continue clozapine 100mg HS po. Start rosuvastatin 5mg daily (recheck fasting lipid panel in 6 weeks) 05/31/2023: Increase clozapine to 100mg HS po. Discontinue risperidone. Blood work tomorrow AM. 05/30/2023: Continue with clozapine 75mg HS po. Taper risperidone to 0.5mg BID. ANC check for 03/31 and fasting glucose and lipid panel ordered. 05/29/2023: increase clozaril to 75 mg po qhs, given daytime fatigue will decrease Risperdal to 1 mg BID. fasting labs ordered for next CBC on 03/31. 05/28/2023: increase clozaril to 50 mg qhs, when get to 100 mg will taper Risperdal further, in meantime Cogentin is helpful. Next Haldol dec will be due 06/19 and likely give 150 mg if Risperdal tapered by then/EPS remains manageable. 05/27/2023: the patient has historically done best with clozaril and will begin when confirm housing, status with CM, and ability to continue rx with [facility]. 05/26/2023: The patient was admitted to the [facility] ([facility]) on q15 min checks (behavioral with suicide precautions) for safety. The patient will participate in group, recreational, and milieu therapies and will be offered additional individual and family sessions as clinically appropriate. Would benefit from restart of Clozaril, will need to start Risperdal taper, only got 100 mg Haldol dec, will offer Haldol prn rather than standing until better control of dystonia/dysarthria with Cogentin. Need to confirm his status with [facility] and ability to be monitored again with clozaril and retitrate. hold on fasting labs for now. Inventory Assets Strengths: help seeking, has been receptive to care in the past Needs: reestablish footing in community, management of antipsychotics Suicide Risk Level Suicide Risk Level: Moderate (q15 min suicide checks) (SI prior to admission and depressed mood, mood improving and feels safe in the hospital, agrees to let staff know if he feels unable to remain safe or requires additional support) Risk Factors Assessment Male: Yes Do You Have Access To A Gun?: No Mental Health Diagnoses: Yes Previous Psychiatric Hospitalization: Yes Protective Factors Assessment Employed: No (varying reports, must clarify) Interval History Identifying Information LEXII TEE is a 32-year-old M who currently states he's homeless, well known to [facility] from multiple inpatient stays for schizophrenia, and was admitted on 05/26/23 01:45 on a 201 voluntary commitment for SI and disorganized behavior, now on 304 pending placement. Chief Complaint "I'm good" Review of Systems Sleep Information Total Hours of Sleep: 6 Meal Information Percent Meal Consumed - Breakfast: 100 Percent Meal Consumed - Lunch: 100 Percent Meal Consumed - Dinner: 100 Subjective Subjective Patient was seen & assessed and interval progress reviewed with nursing. had breakthrough delusions prior to Haldol dec. Patient tolerating clozaril, at times complains of sedation but doesn't appear tired to staff though current resting in room, remains selective about groups. Physical Exam Psychiatric Orientation: alert Apperance: appropriately groomed Eye Contact: + poor eye contact Motor Behavior: no abnormal motor movements Speech: + abnormal rate/rhythm/volume of speech (slow, stutters at times) Affect: + blunted affect Mood: no depressed mood and no anxious mood Thought Process: + concrete thought process Thought Content: + paranoid; no delusions Suicidal Thoughts: denies suicidal thoughts Homicidal Thoughts: denies homicidal thoughts Hallucinations: no auditory hallucinations and no visual hallucinations Cognition: language grossly intact Insight: + limited insight Judgment: + limited judgement Vital Signs (Past 24 Hours) Last Vital Signs Temp 37 C 06/20/23 06:40 Pulse 102 H 06/20/23 06:41 Resp 16 06/20/23 06:40 BP 139/85 06/20/23 06:41 Pulse Ox 97 06/18/23 06:37 O2 Del Method Room Air 06/18/23 06:37 Results & Data ([facility]) Current Inpatient Medications Current Inpatient Medications: Current Inpatient Medications Acetaminophen (Acetaminophen 325 Mg Tab) 650 mg PO Q4H PRN PRN Reason: Headache or Minor Fever Stop: 06/25/23 02:34 Al Hydrox/Mg Hydrox/Simethicone (Aluminum/Magnesium Susp 30 Ml Udc) 30 ml PO Q4H PRN PRN Reason: GI Upset Stop: 06/25/23 02:34 Benztropine Mesylate (Benztropine Mesylate 1 Mg Tab) 1 mg PO BID PRN PRN Reason: muscle stiffness/EPS Stop: 06/25/23 16:39 Clozapine (Clozapine 100 Mg Tab) 100 mg PO HS LINO; Protocol Stop: 07/12/23 21:59 Last Admin: 06/19/23 21:38 Dose: 100 mg Docusate Sodium (Docusate Sodium 100 Mg Cap) 100 mg PO HS [facility] Stop: 07/02/23 21:59 Last Admin: 06/19/23 21:38 Dose: 100 mg Haloperidol (Haloperidol 5 Mg Tab) 5 mg PO Q4 PRN PRN Reason: Anxiety/Agitation Stop: 06/25/23 16:35 Lorazepam (Lorazepam 1 Mg Tab) 1 mg PO Q4 PRN PRN Reason: Anxiety Stop: 06/25/23 16:39 Magnesium Hydroxide (Magnesium Hydroxide Susp 30 Ml Udc) 30 ml PO DAILY PRN PRN Reason: Constipation Stop: 06/25/23 02:34 Rosuvastatin Calcium (Rosuvastatin Calcium 5 Mg Tab) 5 mg PO QAM [facility] Stop: 07/02/23 08:59 Last Admin: 06/20/23 08:45 Dose: 5 mg Sennosides (Senna 8.6 Mg Tab) 17.2 mg PO HS [facility] Stop: 07/02/23 21:59 Last Admin: 06/19/23 21:38 Dose: 17.2 mg Sodium Chloride (Sodium Chloride 0.65% Na Soln 45 Ml ([place])) 1 - 2 sprays NA PRN PRN PRN Reason: Nasal Dryness/Congestion Stop: 06/25/23 02:34 Mental Health & Subst Abuse Tx Psychiatrist Name of Psychiatrist: Katie Wilson PA-C Psychiatrist's Date Of Appointment With Psychiatric Provider: 07/01/21 Time of Appointment with Psychiatrist: 2:30pm Therapist Name of Therapist: N/A was supposed to follow w/ Katie Cupola Liner Name of Cupola Liner: N/A but "would like to get it set up" (1) Schizophrenia Schizophrenia type: paranoid schizophrenia Qualified Code(s): F20.0 - Paranoid schizophrenia
[2023-06-20] MEDS: SENNA 8.6 MG TAB PO SCH (20:53)
[2023-06-20] MEDS: DOCUSATE SODIUM 100 MG CAP PO SCH (20:53)
[2023-06-20] MEDS: cloZAPine 100 MG TAB PO SCH (20:53)
[2023-06-21] MEDS: ROSUVASTATIN CALCIUM 5 MG TAB PO SCH (09:37)
--- NOTE | 2023-06-21 13:44 | Psychiatric Consultation ---
Date of Consultation June 21, 2023 Impression / Recommendations Impression 32 yo man with history of schizophrenia with long history of paranoid and disorganized behavior, recent hospitalization who presents with ongoing disorganization and no safe disposition. Now on 304 commitment. MNPR due to psychosis, difficulty tolerating extended interactions with peers 06/20/2023: improved since last contact, Plan for EAC when bed becomes available. Overall, I spent a total of 25 minutes with this case including review of chart records, direct evaluation of the patient at bedside, and documentation in the electronic health record. (1) Schizophrenia: Schizophrenia type: paranoid schizophrenia Qualified Code(s): F20.0 - Paranoid schizophrenia (2) HLD (hyperlipidemia): (3) Prediabetes: Psych History Chief Complaint "[]". History of Present Illness Patient was seen in ED in April for being at a bus stop talking to himself and making other strange statements about fighting a war in [employer], having an ex- and that he could grow limbs and organs. It was presumed he had been non- compliant with medication and placed at [facility]. Records reports he had some response to Haldol and was administered 100 mg dec (next due 06/19) in addition to PO 15 mg Haldol BID with 3 mg Risperdal BID. He had significant EPS for which he was prescribed Artane 2 mg TID. He reports spending a night in a homeless residential before using his bus voucher to return to [place]. Today he tells me still has his job at [employer] but otherwise he is between apartments. His speech is dysarthric and he appears tired. He seemed somewhat reassured by his health following swabs for the flu, etc. He insists that he was living in [place] for the past year when I pointed out his last contact with the emergency room was otherwise January 2022 following his inpatient stay. He had been having breakthrough paranoia on Haldol dec and was restarted on clozaril during an extended stay on [facility]S that started in November 2021. It is unclear if he is still an active patient with [facility] or [facility]. Patient has been internally preoccupied so far on unit, not pacing earlier but staff just initiated elopement precautions since he was checking the doors. Past Psychiatric History Current Psychiatric Diagnosis: Schizophrenia Do You Have Access To A Gun?: No History of Previous Suicide Attempt: Yes Allergies Allergy/AdvReac Type Severity Reaction Status Date / Time meloxicam AdvReac blurred Verified 05/26/23 00:01 vision naproxen AdvReac blurred Verified 05/26/23 00:01 vision Home Medications Medication Instructions Recorded Confirmed Type haloperidol decanoate 100 mg/mL 150 mg (1.5 mL) IM Q4WK #1 vial 11/26/21 05/26/23 Rx intramuscular solution docusate sodium 100 mg capsule 200 mg PO QAM PRN constipation #1 01/06/22 05/26/23 Rx cap Patient History Medical History (Updated 06/21/23 @ 00:02 by Background Charlene) Alcohol use disorder . 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 Followed by [facility] by Dr. Kamara Managed with clozapine Schizophrenia Sinus tachycardia Sleep deprivation Somnolence Suicidal ideation Suicide attempt Unprotected sex Vitamin B12 deficiency Weakness generalized Surgical History No history of previous surgery Family History (System 12/11/21 @ 07:05 by Jayleen Gallo) Denies family history of Colon cancer Ovarian cancer Prostate cancer Myocardial infarction Breast cancer Social History Smoking Status: Never smoker Cigarettes Per Day: Patient unresponsive at this time; Hx Alcohol Use: No Hx Substance Use: No Preferred Language: Luxembourgish Communication Ability: Effective Visual Impairment: No Limitations Hearing Ability: Normal Diagnostic Radiologist Required: No Beliefs That Will Affect Care: None marital status: Single Current Living Situation: Other Current Living Situation Comment: Apartment , see ED admission report current occupational status: employed Feels Safe at Home: Yes Childhood Exposure to Second-Hand Smoke: No Dental Care, Regularly: No Physical Activity Frequency: Does not Exercise Seatbelt Use: always Sunscreen Use: No Gender Identity: Male Assistive Devices: None and Glasses Physical Exam Vital Signs (Past 24 Hours): Last Vital Signs Temp 36.9 C 06/21/23 06:40 Pulse 114 H 06/21/23 06:41 Resp 16 06/21/23 06:40 BP 133/87 06/21/23 06:41 Pulse Ox 97 06/18/23 06:37 O2 Del Method Room Air 06/18/23 06:37 Results & Data ([facility]) Medications Administered Clozapine (Clozapine 100 Mg Tab) 100 mg PO [facility]; Protocol Stop: 07/12/23 21:59 Last Admin: 06/20/23 20:53 Dose: 100 mg Documented By: Admin: 06/19/23 21:38 Dose: 100 mg Documented By: Admin: 06/18/23 21:12 Dose: 100 mg Documented By: Admin: 06/17/23 21:30 Dose: 100 mg Documented By: Admin: 06/16/23 20:49 Dose: 100 mg Documented By: Admin: 06/15/23 21:08 Dose: 100 mg Documented By: Admin: 06/14/23 21:31 Dose: 100 mg Documented By: Admin: 06/13/23 21:15 Dose: 100 mg Documented By: Admin: 06/12/23 21:02 Dose: 100 mg Documented By: LOU Docusate Sodium (Docusate Sodium 100 Mg Cap) 100 mg PO LINO Stop: 07/02/23 21:59 Last Admin: 06/20/23 20:53 Dose: 100 mg Documented By: Admin: 06/19/23 21:38 Dose: 100 mg Documented By: Admin: 06/18/23 21:10 Dose: 100 mg Documented By: Admin: 06/17/23 21:30 Dose: 100 mg Documented By: Admin: 06/16/23 20:49 Dose: 100 mg Documented By: Admin: 06/15/23 21:10 Dose: 100 mg Documented By: Admin: 06/14/23 21:31 Dose: 100 mg Documented By: Admin: 06/13/23 21:15 Dose: 100 mg Documented By: Admin: 06/12/23 21:03 Dose: 100 mg Documented By: Admin: 06/11/23 20:54 Dose: 100 mg Documented By: Admin: 06/10/23 21:03 Dose: 100 mg Documented By: Admin: 06/09/23 20:48 Dose: 100 mg Documented By: Admin: 06/08/23 21:05 Dose: Not Given Documented By: Admin: 06/07/23 20:32 Dose: 100 mg Documented By: Admin: 06/06/23 20:55 Dose: 100 mg Documented By: Admin: 06/05/23 20:42 Dose: 100 mg Documented By: Admin: 06/04/23 21:04 Dose: 100 mg Documented By: Admin: 06/03/23 21:05 Dose: 100 mg Documented By: Admin: 06/02/23 20:57 Dose: 100 mg Documented By: THUY Rosuvastatin Calcium (Rosuvastatin Calcium 5 Mg Tab) 5 mg PO QAM [facility] Stop: 07/02/23 08:59 Last Admin: 06/21/23 09:37 Dose: 5 mg Documented By: Admin: 06/20/23 08:45 Dose: 5 mg Documented By: Admin: 06/19/23 08:47 Dose: 5 mg Documented By: Admin: 06/18/23 08:43 Dose: 5 mg Documented By: Admin: 06/17/23 08:40 Dose: 5 mg Documented By: Admin: 06/16/23 08:55 Dose: 5 mg Documented By: Admin: 06/15/23 08:38 Dose: 5 mg Documented By: Admin: 06/14/23 08:42 Dose: 5 mg Documented By: Admin: 06/13/23 08:49 Dose: 5 mg Documented By: Admin: 06/12/23 08:55 Dose: 5 mg Documented By: Admin: 06/11/23 08:49 Dose: 5 mg Documented By: Admin: 06/10/23 09:30 Dose: 5 mg Documented By: Admin: 06/09/23 09:27 Dose: 5 mg Documented By: Admin: 06/08/23 08:38 Dose: 5 mg Documented By: Admin: 06/07/23 09:52 Dose: 5 mg Documented By: Admin: 06/06/23 08:55 Dose: 5 mg Documented By: Admin: 06/05/23 08:31 Dose: 5 mg Documented By: Admin: 06/04/23 09:40 Dose: 5 mg Documented By: Admin: 06/03/23 08:47 Dose: 5 mg Documented By: Admin: 06/02/23 08:47 Dose: 5 mg Documented By: JAJA Sennosides (Senna 8.6 Mg Tab) 17.2 mg PO HS [facility] Stop: 07/02/23 21:59 Last Admin: 06/20/23 20:53 Dose: 17.2 mg Documented By: Admin: 06/19/23 21:38 Dose: 17.2 mg Documented By: Admin: 06/18/23 21:11 Dose: 17.2 mg Documented By: Admin: 06/17/23 21:30 Dose: 17.2 mg Documented By: Admin: 06/16/23 20:49 Dose: 17.2 mg Documented By: Admin: 06/15/23 21:10 Dose: 17.2 mg Documented By: Admin: 06/14/23 21:31 Dose: 17.2 mg Documented By: Admin: 06/13/23 21:15 Dose: 17.2 mg Documented By: Admin: 06/12/23 21:03 Dose: 17.2 mg Documented By: Admin: 06/11/23 20:55 Dose: 17.2 mg Documented By: Admin: 06/10/23 21:04 Dose: 17.2 mg Documented By: Admin: 06/09/23 20:47 Dose: 17.2 mg Documented By: Admin: 06/08/23 21:05 Dose: Not Given Documented By: Admin: 06/07/23 20:32 Dose: 17.2 mg Documented By: Admin: 06/06/23 20:56 Dose: 17.2 mg Documented By: Admin: 06/05/23 20:43 Dose: 17.2 mg Documented By: Admin: 06/04/23 21:04 Dose: 17.2 mg Documented By: Admin: 06/03/23 21:04 Dose: 17.2 mg Documented By: Admin: 06/02/23 20:57 Dose: 17.2 mg Documented By: CLD Coding Diagnoses Schizophrenia F20.0 Schizophrenia type: paranoid schizophrenia HLD (hyperlipidemia) E78.5 Prediabetes R73.03
--- NOTE | 2023-06-21 13:47 | Psychiatric Progress Note ---
Date of Service June 21, 2023 Impression / Recommendations Impression 32 yo man with history of schizophrenia with long history of paranoid and disorganized behavior, recent hospitalization who presents with ongoing disorganization and no safe disposition. Now on 304 commitment. MNPR due to psychosis, difficulty tolerating extended interactions with peers 06/21/23: stabilizing Plan: continue current meds and tx plan, metformin BID with meals as above. (1) Schizophrenia: (2) HLD (hyperlipidemia): (3) Prediabetes: Inventory Assets Strengths: help seeking, has been receptive to care in the past Needs: reestablish footing in community, management of antipsychotics Suicide Risk Level Suicide Risk Level: Moderate (q15 min suicide checks) Risk Factors Assessment Male: Yes Do You Have Access To A Gun?: No Mental Health Diagnoses: Yes Previous Psychiatric Hospitalization: Yes Protective Factors Assessment Employed: No (varying reports, must clarify) Interval History Identifying Information LEXII TEE is a 32-year-old M who currently states he's homeless, well known to [facility] from multiple inpatient stays for schizophrenia, and was admitted on 05/26/23 01:45 on a 201 voluntary commitment for SI and disorganized behavior, now on 304 pending placement. Chief Complaint requested nail care Review of Systems Sleep Information Total Hours of Sleep: 6.5 Meal Information Percent Meal Consumed - Breakfast: 100 Percent Meal Consumed - Lunch: 100 Percent Meal Consumed - Dinner: 100 Subjective Subjective Patient was seen & assessed and interval progress reviewed with nursing and social work. No issues overnight. Will nod off at times in group, mainly bored as awaiting placement. He does not complain of sedation. Cooperative with clipping fingernails and toenails. Patient agreeable to resume metformin. Physical Exam Psychiatric Orientation: alert Eye Contact: + poor eye contact Motor Behavior: no abnormal motor movements Speech: + abnormal rate/rhythm/volume of speech (poorly articulated at times but baseline) Affect: + blunted affect Mood: no depressed mood Thought Process: + concrete thought process Thought Content: reality based without delusions Suicidal Thoughts: denies suicidal thoughts Homicidal Thoughts: denies homicidal thoughts Hallucinations: no auditory hallucinations and no visual hallucinations Cognition: attention grossly intact and language grossly intact Estimated Intelligence: consistent with education level Insight: + limited insight Judgment: + limited judgement Vital Signs (Past 24 Hours) Last Vital Signs Temp 36.9 C 06/21/23 06:40 Pulse 114 H 06/21/23 06:41 Resp 16 06/21/23 06:40 BP 133/87 06/21/23 06:41 Pulse Ox 97 06/18/23 06:37 O2 Del Method Room Air 06/18/23 06:37 Results & Data ([facility]) Current Inpatient Medications Current Inpatient Medications: Current Inpatient Medications Acetaminophen (Acetaminophen 325 Mg Tab) 650 mg PO Q4H PRN PRN Reason: Headache or Minor Fever Stop: 06/25/23 02:34 Al Hydrox/Mg Hydrox/Simethicone (Aluminum/Magnesium Susp 30 Ml Udc) 30 ml PO Q4H PRN PRN Reason: GI Upset Stop: 06/25/23 02:34 Benztropine Mesylate (Benztropine Mesylate 1 Mg Tab) 1 mg PO BID PRN PRN Reason: muscle stiffness/EPS Stop: 06/25/23 16:39 Clozapine (Clozapine 100 Mg Tab) 100 mg PO HS [facility]; Protocol Stop: 07/12/23 21:59 Last Admin: 06/20/23 20:53 Dose: 100 mg Docusate Sodium (Docusate Sodium 100 Mg Cap) 100 mg PO HS [facility] Stop: 07/02/23 21:59 Last Admin: 06/20/23 20:53 Dose: 100 mg Haloperidol (Haloperidol 5 Mg Tab) 5 mg PO Q4 PRN PRN Reason: Anxiety/Agitation Stop: 06/25/23 16:35 Lorazepam (Lorazepam 1 Mg Tab) 1 mg PO Q4 PRN PRN Reason: Anxiety Stop: 06/25/23 16:39 Magnesium Hydroxide (Magnesium Hydroxide Susp 30 Ml Udc) 30 ml PO DAILY PRN PRN Reason: Constipation Stop: 06/25/23 02:34 Metformin HCl (Metformin Hcl 500 Mg Tab) 500 mg PO BIDM [facility] Stop: 07/21/23 17:44 Rosuvastatin Calcium (Rosuvastatin Calcium 5 Mg Tab) 5 mg PO QAM [facility] Stop: 07/02/23 08:59 Last Admin: 06/21/23 09:37 Dose: 5 mg Sennosides (Senna 8.6 Mg Tab) 17.2 mg PO HS [facility] Stop: 07/02/23 21:59 Last Admin: 06/20/23 20:53 Dose: 17.2 mg Sodium Chloride (Sodium Chloride 0.65% Na Soln 45 Ml ([place])) 1 - 2 sprays NA PRN PRN PRN Reason: Nasal Dryness/Congestion Stop: 06/25/23 02:34 Mental Health & Subst Abuse Tx Psychiatrist Name of Psychiatrist: Katie Wilson PA-C Psychiatrist's Date Of Appointment With Psychiatric Provider: 07/01/21 Time of Appointment with Psychiatrist: 2:30pm Therapist Name of Therapist: N/A was supposed to follow w/ Katie Air Conditioning Coil Assembler Name of Air Conditioning Coil Assembler: N/A but "would like to get it set up" (1) Schizophrenia Schizophrenia type: paranoid schizophrenia Qualified Code(s): F20.0 - Paranoid schizophrenia
[2023-06-21] MEDS: metFORMIN HCL 500 MG TAB PO SCH (17:36)
[2023-06-21] MEDS: cloZAPine 100 MG TAB PO SCH (20:52)
[2023-06-21] MEDS: DOCUSATE SODIUM 100 MG CAP PO SCH (20:55)
[2023-06-21] MEDS: SENNA 8.6 MG TAB PO SCH (20:55)
[2023-06-22 08:51] LABS: Basophils # (auto) 0.05 K/uL (0.00-0.20); Basophils % (auto) 0.8 %; Eosinophils # (auto) 0.17 K/uL (0.00-0.50); Eosinophils % (auto) 2.9 %; Hematocrit (blood only) 40.7 % (42.0-52.0); Hemoglobin 13.9 g/dl (14.0-18.0); Immature Granulocytes # (auto) 0.01 K/uL (0.01-0.20); Immature Granulocytes % (auto) 0.2 %; Lymphocytes # (auto) 2.17 K/uL (1.20-3.40); Lymphocytes % (auto) 36.4 %; Mean Corpuscular Hemoglobin 29.5 pg (25.0-34.0); Mean Corpuscular Hgb Conc 34.2 g/dL (32.0-36.0); Mean Corpuscular Volume 86.4 fL (80.0-100.0); Mean Platelet Volume 9.9 fL (9.4-12.4); Monocytes # (auto) 0.37 K/uL (0.11-0.59); Monocytes % (auto) 6.2 %; Neutrophils # (auto) 3.19 K/uL (1.40-6.50); Neutrophils % (auto) 53.5 %; Platelet Count 323 K/uL (130-400); RDW Coefficient of Variation 14.6 % (11.5-14.5); RDW Standard Deviation 45.9 fL (36.4-46.3); Red Blood Count 4.71 M/uL (4.70-6.10); White Blood Count 5.96 K/ul (4.8-10.8)
[2023-06-22] MEDS: ROSUVASTATIN CALCIUM 5 MG TAB PO SCH (08:54)
[2023-06-22] MEDS: metFORMIN HCL 500 MG TAB PO SCH ×2 (08:54→17:29)
--- NOTE | 2023-06-22 18:06 | Psychiatric Progress Note ---
Date of Service June 22, 2023 Impression / Recommendations Impression 32 yo man with history of schizophrenia with long history of paranoid and disorganized behavior, recent hospitalization who presents with ongoing disorganization and no safe disposition. Now on 304 commitment. MNPR due to psychosis, difficulty tolerating extended interactions with peers 06/22/23: stabilizing Plan: continue current meds and tx plan (1) Schizophrenia: (2) HLD (hyperlipidemia): (3) Prediabetes: Inventory Assets Strengths: help seeking, has been receptive to care in the past Needs: reestablish footing in community, management of antipsychotics Risk Factors Assessment Male: Yes Do You Have Access To A Gun?: No Mental Health Diagnoses: Yes Previous Psychiatric Hospitalization: Yes Protective Factors Assessment Employed: No (varying reports, must clarify) Interval History Identifying Information LEXII TEE is a 32-year-old M who currently states he's homeless, well known to [facility]S from multiple inpatient stays for schizophrenia, and was admitted on 05/26/23 01:45 on a 201 voluntary commitment for SI and disorganized behavior, now on 304 pending placement. Chief Complaint accepted to [facility] Review of Systems Sleep Information Total Hours of Sleep: 8 Meal Information Percent Meal Consumed - Breakfast: 100 Percent Meal Consumed - Lunch: 100 Percent Meal Consumed - Dinner: 100 Subjective Subjective Patient was seen & assessed and interval progress reviewed with treatment team. No acute issues overnight. Physical Exam Psychiatric Orientation: alert Apperance: appropriately groomed Eye Contact: + poor eye contact Motor Behavior: no abnormal motor movements Speech: + abnormal rate/rhythm/volume of speech (poorly articulated at times but baseline) Affect: + blunted affect Mood: no depressed mood and no anxious mood Thought Process: + concrete thought process Thought Content: + paranoid Suicidal Thoughts: denies suicidal thoughts Homicidal Thoughts: denies homicidal thoughts Hallucinations: no auditory hallucinations and no visual hallucinations Cognition: attention grossly intact and language grossly intact Estimated Intelligence: consistent with education level Vital Signs (Past 24 Hours) Last Vital Signs Temp 37 C 06/22/23 06:42 Pulse 94 H 06/22/23 06:43 Resp 16 06/22/23 06:42 BP 107/66 06/22/23 06:43 Pulse Ox 97 06/18/23 06:37 O2 Del Method Room Air 06/18/23 06:37 Results & Data ([facility]) Laboratory Results Laboratory Results - last 24 hr 06/22/23 08:30 WBC 5.96 RBC 4.71 Hgb 13.9 L Hct 40.7 L MCV 86.4 MCH 29.5 MCHC 34.2 RDW Std Deviation 45.9 RDW Coeff of [place] 14.6 H Plt Count 323 MPV 9.9 Immature Gran % (Auto) 0.2 Neut % (Auto) 53.5 Lymph % (Auto) 36.4 [place] % (Auto) 6.2 Eos % (Auto) 2.9 Baso % (Auto) 0.8 Neut # (Auto) 3.19 Lymph # (Auto) 2.17 [place] # (Auto) 0.37 Eos # (Auto) 0.17 Baso # (Auto) 0.05 Immature Gran # (Auto) 0.01 Current Inpatient Medications Current Inpatient Medications: Current Inpatient Medications Acetaminophen (Acetaminophen 325 Mg Tab) 650 mg PO Q4H PRN PRN Reason: Headache or Minor Fever Stop: 06/25/23 02:34 Al Hydrox/Mg Hydrox/Simethicone (Aluminum/Magnesium Susp 30 Ml Udc) 30 ml PO Q4H PRN PRN Reason: GI Upset Stop: 06/25/23 02:34 Benztropine Mesylate (Benztropine Mesylate 1 Mg Tab) 1 mg PO BID PRN PRN Reason: muscle stiffness/EPS Stop: 06/25/23 16:39 Clozapine (Clozapine 100 Mg Tab) 100 mg PO HS [facility]; Protocol Stop: 07/12/23 21:59 Last Admin: 06/21/23 20:52 Dose: 100 mg Docusate Sodium (Docusate Sodium 100 Mg Cap) 100 mg PO HS [facility] Stop: 07/02/23 21:59 Last Admin: 06/21/23 20:55 Dose: 100 mg Haloperidol (Haloperidol 5 Mg Tab) 5 mg PO Q4 PRN PRN Reason: Anxiety/Agitation Stop: 06/25/23 16:35 Lorazepam (Lorazepam 1 Mg Tab) 1 mg PO Q4 PRN PRN Reason: Anxiety Stop: 06/25/23 16:39 Magnesium Hydroxide (Magnesium Hydroxide Susp 30 Ml Udc) 30 ml PO DAILY PRN PRN Reason: Constipation Stop: 06/25/23 02:34 Metformin HCl (Met[facility] Hcl 500 Mg Tab) [facility] Stop: 07/21/23 17:44 Last Admin: 06/22/23 17:29 Dose: 500 mg Rosuvastatin Calcium (Rosuvastatin Calcium 5 Mg Tab) 5 mg PO QAM [facility] Stop: 07/02/23 08:59 Last Admin: 06/22/23 08:54 Dose: 5 mg Sennosides (Senna 8.6 Mg Tab) 17.2 mg PO HS [facility] Stop: 07/02/23 21:59 Last Admin: 06/21/23 20:55 Dose: 17.2 mg Sodium Chloride (Sodium Chloride 0.65% Na Soln 45 Ml ([place])) 1 - 2 sprays NA PRN PRN PRN Reason: Nasal Dryness/Congestion Stop: 06/25/23 02:34 Mental Health & Subst Abuse Tx Psychiatrist Name of Psychiatrist: Katie Wilson PA-C Psychiatrist's Date Of Appointment With Psychiatric Provider: 07/01/21 Time of Appointment with Psychiatrist: 2:30pm Therapist Name of Therapist: N/A was supposed to follow w/ Katie Registration Clerk Name of Registration Clerk: N/A but "would like to get it set up" (1) Schizophrenia Schizophrenia type: paranoid schizophrenia Qualified Code(s): F20.0 - Paranoid schizophrenia
[2023-06-22] MEDS: cloZAPine 100 MG TAB PO SCH (21:12)
[2023-06-22] MEDS: SENNA 8.6 MG TAB PO SCH (21:12)
[2023-06-22] MEDS: DOCUSATE SODIUM 100 MG CAP PO SCH (21:12)
[2023-06-23] MEDS: ROSUVASTATIN CALCIUM 5 MG TAB PO SCH (08:43)
[2023-06-23] MEDS: metFORMIN HCL 500 MG TAB PO SCH ×2 (08:44→17:18)
--- NOTE | 2023-06-23 16:46 | Psychiatric Progress Note ---
Date of Service June 23, 2023 Impression / Recommendations Impression 32 yo man with history of schizophrenia with long history of paranoid and disorganized behavior, recent hospitalization who presents with ongoing disorganization and no safe disposition. Now on 304 commitment. MNPR due to psychosis, difficulty tolerating extended interactions with peers 06/23/23: accepted to [facility] for 06/25/23. Plan: continue current meds and tx plan, repeat COVID tomorrow. (1) Schizophrenia: (2) Prediabetes: Inventory Assets Strengths: help seeking, has been receptive to care in the past Needs: reestablish footing in community, management of antipsychotics Suicide Risk Level Suicide Risk Level: Moderate (q15 min suicide checks) Risk Factors Assessment Male: Yes Do You Have Access To A Gun?: No Mental Health Diagnoses: Yes Previous Psychiatric Hospitalization: Yes Protective Factors Assessment Employed: No (varying reports, must clarify) Interval History Identifying Information LEXII TEE is a 32-year-old M who currently states he's homeless, well known to [facility]S from multiple inpatient stays for schizophrenia, and was admitted on 05/26/23 01:45 on a 201 voluntary commitment for SI and disorganized behavior, now on 304 pending placement. Chief Complaint "I'm good" Review of Systems Sleep Information Total Hours of Sleep: 7.5 Meal Information Percent Meal Consumed - Breakfast: 100 Percent Meal Consumed - Lunch: 100 Percent Meal Consumed - Dinner: 100 Subjective Subjective Patient was seen & assessed and interval progress reviewed with nursing and social work. tolerating meds, no new issues. Physical Exam Psychiatric alert, cooperative, speech baseline for patient, does not appear to be responding to internal stimuli. Less paranoid. Vital Signs (Past 24 Hours) Last Vital Signs Temp 36.9 C 06/23/23 06:42 Pulse 98 H 06/23/23 06:42 Resp 16 06/23/23 06:42 BP 110/72 06/23/23 06:42 Pulse Ox 97 06/18/23 06:37 O2 Del Method Room Air 06/18/23 06:37 Results & Data (U) Current Inpatient Medications Current Inpatient Medications: Current Inpatient Medications Acetaminophen (Acetaminophen 325 Mg Tab) 650 mg PO Q4H PRN PRN Reason: Headache or Minor Fever Stop: 06/25/23 02:34 Al Hydrox/Mg Hydrox/Simethicone (Aluminum/Magnesium Susp 30 Ml Udc) 30 ml PO Q4H PRN PRN Reason: GI Upset Stop: 06/25/23 02:34 Benztropine Mesylate (Benztropine Mesylate 1 Mg Tab) 1 mg PO BID PRN PRN Reason: muscle stiffness/EPS Stop: 06/25/23 16:39 Clozapine (Clozapine 100 Mg Tab) 100 mg PO [facility]; Protocol Stop: 07/12/23 21:59 Last Admin: 06/22/23 21:12 Dose: 100 mg Docusate Sodium (Docusate Sodium 100 Mg Cap) 100 mg PO [facility] Stop: 07/02/23 21:59 Last Admin: 06/22/23 21:12 Dose: 100 mg Haloperidol (Haloperidol 5 Mg Tab) 5 mg PO Q4 PRN PRN Reason: Anxiety/Agitation Stop: 06/25/23 16:35 Lorazepam (Lorazepam 1 Mg Tab) 1 mg PO Q4 PRN PRN Reason: Anxiety Stop: 06/25/23 16:39 Magnesium Hydroxide (Magnesium Hydroxide Susp 30 Ml Udc) 30 ml PO DAILY PRN PRN Reason: Constipation Stop: 06/25/23 02:34 Metformin HCl (Metformin Hcl 500 Mg Tab) 500 mg PO BIDM [facility] Stop: 07/21/23 17:44 Last Admin: 06/23/23 08:44 Dose: 500 mg Rosuvastatin Calcium (Rosuvastatin Calcium 5 Mg Tab) 5 mg PO QAM [facility] Stop: 07/02/23 08:59 Last Admin: 06/23/23 08:43 Dose: 5 mg Sennosides (Senna 8.6 Mg Tab) 17.2 mg PO [facility] Stop: 07/02/23 21:59 Last Admin: 06/22/23 21:12 Dose: 17.2 mg Sodium Chloride (Sodium Chloride 0.65% Na Soln 45 Ml ([place])) 1 - 2 sprays NA PRN PRN PRN Reason: Nasal Dryness/Congestion Stop: 06/25/23 02:34 Mental Health & Subst Abuse Tx Psychiatrist Name of Psychiatrist: Katie Wilson PA-C Psychiatrist's Date Of Appointment With Psychiatric Provider: 07/01/21 Time of Appointment with Psychiatrist: 2:30pm Therapist Name of Therapist: N/A was supposed to follow w/ Katie Inserter Promotional Item Name of Inserter Promotional Item: N/A but "would like to get it set up" (1) Schizophrenia Schizophrenia type: paranoid schizophrenia Qualified Code(s): F20.0 - Paranoid schizophrenia
[2023-06-23] MEDS: cloZAPine 100 MG TAB PO SCH (21:06)
[2023-06-23] MEDS: SENNA 8.6 MG TAB PO SCH (21:07)
[2023-06-23] MEDS: DOCUSATE SODIUM 100 MG CAP PO SCH (21:07)
[2023-06-24] MEDS: metFORMIN HCL 500 MG TAB PO SCH ×2 (08:48→18:24)
[2023-06-24] MEDS: ROSUVASTATIN CALCIUM 5 MG TAB PO SCH (08:48)
--- NOTE | 2023-06-24 16:58 | Psychiatric Progress Note ---
Date of Service June 24, 2023 Impression / Recommendations Impression 32 yo man with history of schizophrenia with long history of paranoid and disorganized behavior, recent hospitalization who presents with ongoing disorganization and no safe disposition. Now on 304 commitment. MNPR due to psychosis, difficulty tolerating extended interactions with peers 06/24/23: accepted to [facility] for 06/25/23. (1) Schizophrenia: (2) Prediabetes: Plan 06/21/2023: restarted metformin 06/17/2023: Now on 304 commitment. 06/12/2023: * clozapine increased to 100mg HS * depot haloperidol CONDE 150mg 06/02/2023: Decrease clozapine to 75mg HS. Discontinue cogentin, leave available as prn. Start scheduled colace and senna given use of clozapine. 06/01/2023: Continue clozapine 100mg HS po. Start rosuvastatin 5mg daily (recheck fasting lipid panel in 6 weeks) 05/31/2023: Increase clozapine to 100mg HS po. Discontinue risperidone. Blood work tomorrow AM. 05/30/2023: Continue with clozapine 75mg HS po. Taper risperidone to 0.5mg BID. ANC check for 03/31 and fasting glucose and lipid panel ordered. 05/29/2023: increase clozaril to 75 mg po qhs, given daytime fatigue will decrease Risperdal to 1 mg BID. fasting labs ordered for next CBC on 03/31. 05/28/2023: increase clozaril to 50 mg qhs, when get to 100 mg will taper Risperdal further, in meantime Cogentin is helpful. Next Haldol dec will be due 06/19 and likely give 150 mg if Risperdal tapered by then/EPS remains manageable. 05/27/2023: the patient has historically done best with clozaril and will begin when confirm housing, status with CM, and ability to continue rx with [facility]. 05/26/2023: The patient was admitted to the [facility] ([facility] inpatient mental health unit) on q15 min checks (behavioral with suicide precautions) for safety. The patient will participate in group, recreational, and milieu therapies and will be offered additional individual and family sessions as clinically appropriate. Would benefit from restart of Clozaril, will need to start Risperdal taper, only got 100 mg Haldol dec, will offer Haldol prn rather than standing until better control of dystonia/dysarthria with Cogentin. Need to confirm his status with [facility] and ability to be monitored again with clozaril and retitrate. hold on fasting labs for now. Inventory Assets Strengths: help seeking, has been receptive to care in the past Needs: reestablish footing in community, management of antipsychotics Suicide Risk Level Suicide Risk Level: Moderate (q15 min suicide checks) Risk Factors Assessment Male: Yes Do You Have Access To A Gun?: No Mental Health Diagnoses: Yes Previous Psychiatric Hospitalization: Yes Protective Factors Assessment Employed: No (varying reports, must clarify) Interval History Identifying Information LEXII TEE is a 32-year-old M who currently states he's homeless, well known to [facility] from multiple inpatient stays for schizophrenia, and was admitted on 05/26/23 01:45 on a 201 voluntary commitment for SI and disorganized behavior, now on 304 pending placement. Chief Complaint bed available at [facility] on 06/25 Review of Systems Sleep Information Total Hours of Sleep: 6.5 Meal Information Percent Meal Consumed - Breakfast: 100 Percent Meal Consumed - Lunch: 75 Percent Meal Consumed - Dinner: 100 Subjective Subjective Patient was seen & assessed and interval progress reviewed with treatment team. Remains redirectible and med compliant. COVID test to be redone as must be within 24 hrs of discharge. Physical Exam Psychiatric alert, cooperative, no abnormal motor movements. Denies SI/HI, minimal paranoia. Denies Benavides Vital Signs (Past 24 Hours) Last Vital Signs Temp 37 C 06/24/23 06:41 Pulse 101 H 06/24/23 06:41 Resp 16 06/24/23 06:41 BP 116/76 06/24/23 06:41 Pulse Ox 97 06/18/23 06:37 O2 Del Method Room Air 06/18/23 06:37 Results & Data ([facility]) Laboratory Results Laboratory Results - last 24 hr 06/23/23 20:01 SARS-CoV-2 RNA ([facility]) Negative Current Inpatient Medications Current Inpatient Medications: Current Inpatient Medications Acetaminophen (Acetaminophen 325 Mg Tab) 650 mg PO Q4H PRN PRN Reason: Headache or Minor Fever Stop: 06/25/23 02:34 Al Hydrox/Mg Hydrox/Simethicone (Aluminum/Magnesium Susp 30 Ml Udc) 30 ml PO Q4H PRN PRN Reason: GI Upset Stop: 06/25/23 02:34 Benztropine Mesylate (Benztropine Mesylate 1 Mg Tab) 1 mg PO BID PRN PRN Reason: muscle stiffness/EPS Stop: 06/25/23 16:39 Clozapine (Clozapine 100 Mg Tab) 100 mg PO [facility]; Protocol Stop: 07/12/23 21:59 Last Admin: 06/23/23 21:06 Dose: 100 mg Docusate Sodium (Docusate Sodium 100 Mg Cap) 100 mg PO [facility] Stop: 07/02/23 21:59 Last Admin: 06/23/23 21:07 Dose: 100 mg Haloperidol (Haloperidol 5 Mg Tab) 5 mg PO Q4 PRN PRN Reason: Anxiety/Agitation Stop: 06/25/23 16:35 Lorazepam (Lorazepam 1 Mg Tab) 1 mg PO Q4 PRN PRN Reason: Anxiety Stop: 06/25/23 16:39 Magnesium Hydroxide (Magnesium Hydroxide Susp 30 Ml Udc) 30 ml PO DAILY PRN PRN Reason: Constipation Stop: 06/25/23 02:34 Metformin HCl (Metformin Hcl 500 Mg Tab) 500 mg PO BIDM [facility] Stop: 07/21/23 17:44 Last Admin: 06/24/23 08:48 Dose: 500 mg Rosuvastatin Calcium (Rosuvastatin Calcium 5 Mg Tab) 5 mg PO QAM [facility] Stop: 07/02/23 08:59 Last Admin: 06/24/23 08:48 Dose: 5 mg Sennosides (Senna 8.6 Mg Tab) 17.2 mg PO [facility] Stop: 07/02/23 21:59 Last Admin: 06/23/23 21:07 Dose: 17.2 mg Sodium Chloride (Sodium Chloride 0.65% Na Soln 45 Ml ([place])) 1 - 2 sprays NA PRN PRN PRN Reason: Nasal Dryness/Congestion Stop: 06/25/23 02:34 Mental Health & Subst Abuse Tx Psychiatrist Name of Psychiatrist: Katie Wilson PA-C Psychiatrist's Date Of Appointment With Psychiatric Provider: 07/01/21 Time of Appointment with Psychiatrist: 2:30pm Therapist Name of Therapist: N/A was supposed to follow w/ Katie Compensation Analyst Name of Compensation Analyst: N/A but "would like to get it set up" (1) Schizophrenia Schizophrenia type: paranoid schizophrenia Qualified Code(s): F20.0 - Paranoid schizophrenia
[2023-06-24] MEDS: DOCUSATE SODIUM 100 MG CAP PO SCH (21:47)
[2023-06-24] MEDS: cloZAPine 100 MG TAB PO SCH (21:47)
[2023-06-24] MEDS: SENNA 8.6 MG TAB PO SCH (21:48)
[2023-06-25 06:31] VITALS: BP 121/85; TEMP 98.4
[2023-06-25 08:17] VITALS: PULSE 94
[2023-06-25] MEDS: ROSUVASTATIN CALCIUM 5 MG TAB PO SCH (08:50)
[2023-06-25] MEDS: metFORMIN HCL 500 MG TAB PO SCH (08:50)
--- NOTE | 2023-06-25 11:42 | Discharge Summary ---
Date of Service June 25, 2023 History of Present Illness Patient was seen in ED in April for being at a bus stop talking to himself and making other strange statements about fighting a war in [place], having an ex- and that he could grow limbs and organs. It was presumed he had been non- compliant with medication and placed at [facility]. Records reports he had some response to Haldol and was administered 100 mg dec (next due 06/19) in addition to PO 15 mg Haldol BID with 3 mg Risperdal BID. He had significant EPS for which he was prescribed Artane 2 mg TID. He reports spending a night in a homeless jail before using his bus voucher to return to [place]. Today he tells me still has his job at [employer] but otherwise he is between apartments. His speech is dysarthric and he appears tired. He seemed somewhat reassured by his health following swabs for the flu, etc. He insists that he was living in [place] for the past year when I pointed out his last contact with the emergency room was otherwise January 2022 following his inpatient stay. He had been having breakthrough paranoia on Haldol dec and was restarted on clozaril during an extended stay on [facility]S that started in November 2021. It is unclear if he is still an active patient with [facility] or [facility]. Physical Exam Psychiatric See admission H&P and DOD assessment. Vital Signs (Past 24 Hours) Last Vital Signs Temp 36.9 C 06/25/23 09:13 Pulse 94 H 06/25/23 09:13 Resp 16 06/25/23 09:13 BP 121/85 06/25/23 09:13 Pulse Ox 97 06/25/23 09:13 O2 Del Method Room Air 06/18/23 06:37 Principal Diagnosis schizophrenia Psychiatric Data See daily stay summary. In short, safety was maintained and the patient was cooperative with care. Medication changes included taper of Risperdal and PO Haldol, increase to previously effective dose of Haldol dec and restart of clozaril and they tolerated this well. See stay summary. Day of Discharge Assessment The patient voiced readiness for discharge and understood the need for longer term placement. They noted improvement in mood and deny thoughts to harm self or others. Thoughts remained more organized but concrete. There was no active hallucinations. They agree to take mediations as prescribed. They are stable for transfer to extended acute care. Transition of Care Transition Of Care Record: was reviewed with the patient Advance Directives Advance Directives Information Provided: Yes Advance Directives: No Mental Health Advance Directive: No Advance Directives on File: No Living Will: No Power of Manager [employer]: No Advance Directives Reason:: Declines as Mental Health Visit. Suicide Risk Level Suicide Risk Level Comments: Suicide risk for patients with schizophrenia is chronic. The patient continues to require 24-hr monitoring of his behavior as quickly decompensates. Risk Factors Assessment Male: Yes Do You Have Access To A Gun?: No Mental Health Diagnoses: Yes Previous Psychiatric Hospitalization: Yes Protective Factors Assessment Employed: No (varying reports, must clarify) Tobacco Cessation at Discharge Tobacco Cessation Medication Prescribed at Discharge: Not Applicable/Non-Smoker Antipsychotic Medications The patient is continuing 2 antipsychotics due to a history of a minimum of 3 failed trials of monotherapy (Risperdal, Abilify, Haldol), and need for augmentation of clozapine as he only tolerates 100 mg total daily dose due to sedation. Total Time Total Time Spent: Less Than 30 Minutes (25) Total Time Includes: Discharge Planning and Medication Reconciliation Discharge Data Lab Results 05/25/23 05/25/23 05/25/23 20:42 20:42 20:42 WBC 9.16 RBC 4.42 L Hgb 13.1 L Hct 37.3 L MCV 84.4 MCH 29.6 MCHC 35.1 RDW Std Deviation 43.7 RDW Coeff of Tawanna 14.2 Plt Count 403 H MPV 10.3 Immature Gran % (Auto) 0.2 Neut % (Auto) 66.7 Lymph % (Auto) 25.1 [place] % (Auto) 6.7 Eos % (Auto) 1.0 Baso % (Auto) 0.3 Neut # (Auto) 6.11 Lymph # (Auto) 2.30 [place] # (Auto) 0.61 H Eos # (Auto) 0.09 Baso # (Auto) 0.03 Immature Gran # (Auto) 0.02 Sodium 139 Potassium 3.8 Chloride 104 Carbon Dioxide 28 Anion Gap 7 BUN 14 Creatinine 1.02 Est Cr Clr Drug Dosing Not Reportable Est GFR ( Amer) 113.8 Est GFR (Non-Af Amer) 98.2 BUN/Creatinine Ratio 13.7 Glucose 113 H Estimat Average Glucose Hemoglobin A1c Calcium 9.4 Total Bilirubin 0.3 AST 22 ALT 18 Alkaline Phosphatase 69 Total Protein 7.8 Albumin 4.2 Globulin 3.6 Albumin/Globulin Ratio 1.2 Triglycerides Cholesterol LDL Cholesterol, Calc VLDL Cholesterol, Calc HDL Cholesterol Cholesterol/HDL Ratio TSH 1.412 Urine Color Urine Appearance Urine pH Ur Specific B[place] Urine Protein Urine Glucose (UA) Urine Ketones Urine Blood Urine Nitrite Urine Bilirubin Urine Urobilinogen Ur Leukocyte Esterase Urine WBC (Auto) Urine RBC (Auto) U Hyaline Cast (Auto) U Epithel Cells (Auto) Urine Bacteria (Auto) Salicylates Urine Opiates Screen Ur Methadone, Qual Acetaminophen Urine Barbiturates Ur Phencyclidine (PCP) U Amphetamin/Meth Scrn MDMA (Ecstasy) Screen U Benzodiazepines Scrn Ur Cocaine Metabolite U Marijuana (THC) Screen Ethyl Alcohol mg/dL Adenovirus (PCR) B. pertussis DNA (PCR) B.parapertussis DNA PCR C. pneumoniae DNA (PCR) Coronavirus OC43 (PCR) Coronavirus HKU1 (PCR) Coronavirus 229E (PCR) SARS-CoV-2 (PCR) Coronavirus NL63 (PCR) Human Metapneumovir PCR Influenza Type A (PCR) Influenza Type B (PCR) M. pneumoniae (PCR) Parainfluenza 1 (PCR) Parainfluenza 2 (PCR) Parainfluenza 3 (PCR) Parainfluenza 4 (PCR) RSV (PCR) Entero/Rhino (PCR) SARS-CoV-2 RNA (MARISSA) SARS-CoV-2, RNA, NAAT 05/25/23 05/25/23 05/25/23 20:42 20:42 20:42 WBC RBC Hgb Hct MCV MCH MCHC RDW Std Deviation RDW Coeff of Tawanna Plt Count MPV Immature Gran % (Auto) Neut % (Auto) Lymph % (Auto) [place] % (Auto) Eos % (Auto) Baso % (Auto) Neut # (Auto) Lymph # (Auto) [place] # (Auto) Eos # (Auto) Baso # (Auto) Immature Gran # (Auto) Sodium Potassium Chloride Carbon Dioxide Anion Gap BUN Creatinine Est Cr Clr Drug Dosing Est GFR ( Amer) Est GFR (Non-Af Amer) BUN/Creatinine Ratio Glucose Estimat Average Glucose Hemoglobin A1c Calcium Total Bilirubin AST ALT Alkaline Phosphatase Total Protein Albumin Globulin Albumin/Globulin Ratio Triglycerides Cholesterol LDL Cholesterol, Calc VLDL Cholesterol, Calc HDL Cholesterol Cholesterol/HDL Ratio TSH Urine Color Urine Appearance Urine pH Ur Specific [place] Urine Protein Urine Glucose (UA) Urine Ketones Urine Blood Urine Nitrite Urine Bilirubin Urine Urobilinogen Ur Leukocyte Esterase Urine WBC (Auto) Urine RBC (Auto) U Hyaline Cast (Auto) U Epithel Cells (Auto) Urine Bacteria (Auto) Salicylates < 3.0 L Urine Opiates Screen Ur Methadone, Qual Acetaminophen < 3 L Urine Barbiturates Ur Phencyclidine (PCP) U Amphetamin/Meth Scrn MDMA (Ecstasy) Screen U Benzodiazepines Scrn Ur Cocaine Metabolite U Marijuana (THC) Screen Ethyl Alcohol mg/dL < 10.0 Adenovirus (PCR) B. pertussis DNA (PCR) B.parapertussis DNA PCR C. pneumoniae DNA (PCR) Coronavirus OC43 (PCR) Coronavirus HKU1 (PCR) Coronavirus 229E (PCR) SARS-CoV-2 (PCR) Coronavirus NL63 (PCR) Human Metapneumovir PCR Influenza Type A (PCR) Influenza Type B (PCR) M. pneumoniae (PCR) Parainfluenza 1 (PCR) Parainfluenza 2 (PCR) Parainfluenza 3 (PCR) Parainfluenza 4 (PCR) RSV (PCR) Entero/Rhino (PCR) SARS-CoV-2 RNA (MARISSA) SARS-CoV-2, RNA, NAAT NEGATIVE 05/25/23 05/25/23 05/26/23 Unknown Unknown Unknown WBC RBC Hgb Hct MCV MCH MCHC RDW Std Deviation RDW Coeff of Tawanna Plt Count MPV Immature Gran % (Auto) Neut % (Auto) Lymph % (Auto) [place] % (Auto) Eos % (Auto) Baso % (Auto) Neut # (Auto) Lymph # (Auto) [place] # (Auto) Eos # (Auto) Baso # (Auto) Immature Gran # (Auto) Sodium Potassium Chloride Carbon Dioxide Anion Gap BUN Creatinine Est Cr Clr Drug Dosing Est GFR ( Amer) Est GFR (Non-Af Amer) BUN/Creatinine Ratio Glucose Estimat Average Glucose Hemoglobin A1c Calcium Total Bilirubin AST ALT Alkaline Phosphatase Total Protein Albumin Globulin Albumin/Globulin Ratio Triglycerides Cholesterol LDL Cholesterol, Calc VLDL Cholesterol, Calc HDL Cholesterol Cholesterol/HDL Ratio TSH Urine Color Dark Yellow Urine Appearance Clear Urine pH 6.5 Ur Specific [place] 1.037 H Urine Protein 2+ H Urine Glucose (UA) Negative Urine Ketones 1+ H Urine Blood Negative Urine Nitrite Negative Urine Bilirubin 1+ H Urine Urobilinogen Negative Ur Leukocyte Esterase Negative Urine WBC (Auto) 1-5 Urine RBC (Auto) 0-4 U Hyaline Cast (Auto) 1-5 U Epithel Cells (Auto) 10-20 H Urine Bacteria (Auto) Negative Salicylates Urine Opiates Screen Neg Ur Methadone, Qual Neg Acetaminophen Urine Barbiturates Neg Ur Phencyclidine (PCP) Neg U Amphetamin/Meth Scrn Neg MDMA (Ecstasy) Screen Neg U Benzodiazepines Scrn Neg Ur Cocaine Metabolite Neg U Marijuana (THC) Screen Neg Ethyl Alcohol mg/dL Adenovirus (PCR) Not Detected B. pertussis DNA (PCR) Not Detected B.parapertussis DNA PCR Not Detected C. pneumoniae DNA (PCR) Not Detected Coronavirus OC43 (PCR) Not Detected Coronavirus HKU1 (PCR) Not Detected Coronavirus 229E (PCR) Not Detected SARS-CoV-2 (PCR) Not Detected Coronavirus NL63 (PCR) Not Detected Human Metapneumovir PCR Not Detected Influenza Type A (PCR) Not Detected Influenza Type B (PCR) Not Detected M. pneumoniae (PCR) Not Detected Parainfluenza 1 (PCR) Not Detected Parainfluenza 2 (PCR) Not Detected Parainfluenza 3 (PCR) Not Detected Parainfluenza 4 (PCR) Not Detected RSV (PCR) Not Detected Entero/Rhino (PCR) Not Detected SARS-CoV-2 RNA (MARISSA) SARS-CoV-2, RNA, NAAT 06/01/23 06/01/23 06/01/23 07:41 07:41 07:41 WBC 5.94 RBC 4.72 Hgb 13.7 L Hct 41.2 L MCV 87.3 MCH 29.0 MCHC 33.3 RDW Std Deviation 46.6 H RDW Coeff of Tawanna 14.5 Plt Count 364 MPV 10.2 Immature Gran % (Auto) 0.2 Neut % (Auto) 50.7 Lymph % (Auto) 37.7 [place] % (Auto) 7.7 Eos % (Auto) 2.7 Baso % (Auto) 1.0 Neut # (Auto) 3.01 Lymph # (Auto) 2.24 [place] # (Auto) 0.46 Eos # (Auto) 0.16 Baso # (Auto) 0.06 Immature Gran # (Auto) 0.01 Sodium Potassium Chloride Carbon Dioxide Anion Gap BUN Creatinine Est Cr Clr Drug Dosing Est GFR ( Amer) Est GFR (Non-Af Amer) BUN/Creatinine Ratio Glucose Estimat Average Glucose 128 Hemoglobin A1c 6.1 H Calcium Total Bilirubin AST ALT Alkaline Phosphatase Total Protein Albumin Globulin Albumin/Globulin Ratio Triglycerides 106 Cholesterol 247 H LDL Cholesterol, Calc 170 VLDL Cholesterol, Calc 21 HDL Cholesterol 56 Cholesterol/HDL Ratio 4.4 TSH Urine Color Urine Appearance Urine pH Ur Specific [place] Urine Protein Urine Glucose (UA) Urine Ketones Urine Blood Urine Nitrite Urine Bilirubin Urine Urobilinogen Ur Leukocyte Esterase Urine WBC (Auto) Urine RBC (Auto) U Hyaline Cast (Auto) U Epithel Cells (Auto) Urine Bacteria (Auto) Salicylates Urine Opiates Screen Ur Methadone, Qual Acetaminophen Urine Barbiturates Ur Phencyclidine (PCP) U Amphetamin/Meth Scrn MDMA (Ecstasy) Screen U Benzodiazepines Scrn Ur Cocaine Metabolite U Marijuana (THC) Screen Ethyl Alcohol mg/dL Adenovirus (PCR) B. pertussis DNA (PCR) B.parapertussis DNA PCR C. pneumoniae DNA (PCR) Coronavirus OC43 (PCR) Coronavirus HKU1 (PCR) Coronavirus 229E (PCR) SARS-CoV-2 (PCR) Coronavirus NL63 (PCR) Human Metapneumovir PCR Influenza Type A (PCR) Influenza Type B (PCR) M. pneumoniae (PCR) Parainfluenza 1 (PCR) Parainfluenza 2 (PCR) Parainfluenza 3 (PCR) Parainfluenza 4 (PCR) RSV (PCR) Entero/Rhino (PCR) SARS-CoV-2 RNA (MARISSA) SARS-CoV-2, RNA, NAAT 06/08/23 06/15/23 06/22/23 08:11 08:17 08:30 WBC 6.51 7.00 5.96 RBC 4.45 L 4.66 L 4.71 Hgb 13.0 L 13.5 L 13.9 L Hct 38.5 L 40.5 L 40.7 L MCV 86.5 86.9 86.4 MCH 29.2 29.0 29.5 MCHC 33.8 33.3 34.2 RDW Std Deviation 46.0 47.5 H 45.9 RDW Coeff of Tawanna 14.6 H 14.8 H 14.6 H Plt Count 327 317 323 MPV 10.3 10.1 9.9 Immature Gran % (Auto) 0.2 0.3 0.2 Neut % (Auto) 56.6 58.8 53.5 Lymph % (Auto) 32.4 29.4 36.4 [place] % (Auto) 7.8 8.1 6.2 Eos % (Auto) 2.2 2.4 2.9 Baso % (Auto) 0.8 1.0 0.8 Neut # (Auto) 3.69 4.11 3.19 Lymph # (Auto) 2.11 2.06 2.17 [place] # (Auto) 0.51 0.57 0.37 Eos # (Auto) 0.14 0.17 0.17 Baso # (Auto) 0.05 0.07 0.05 Immature Gran # (Auto) 0.01 0.02 0.01 Sodium Potassium Chloride Carbon Dioxide Anion Gap BUN Creatinine Est Cr Clr Drug Dosing Est GFR ( Amer) Est GFR (Non-Af Amer) BUN/Creatinine Ratio Glucose Estimat Average Glucose Hemoglobin A1c Calcium Total Bilirubin AST ALT Alkaline Phosphatase Total Protein Albumin Globulin Albumin/Globulin Ratio Triglycerides Cholesterol LDL Cholesterol, Calc VLDL Cholesterol, Calc HDL Cholesterol Cholesterol/HDL Ratio TSH Urine Color Urine Appearance Urine pH Ur Specific [place] Urine Protein Urine Glucose (UA) Urine Ketones Urine Blood Urine Nitrite Urine Bilirubin Urine Urobilinogen Ur Leukocyte Esterase Urine WBC (Auto) Urine RBC (Auto) U Hyaline Cast (Auto) U Epithel Cells (Auto) Urine Bacteria (Auto) Salicylates Urine Opiates Screen Ur Methadone, Qual Acetaminophen Urine Barbiturates Ur Phencyclidine (PCP) U Amphetamin/Meth Scrn MDMA (Ecstasy) Screen U Benzodiazepines Scrn Ur Cocaine Metabolite U Marijuana (THC) Screen Ethyl Alcohol mg/dL Adenovirus (PCR) B. pertussis DNA (PCR) B.parapertussis DNA PCR C. pneumoniae DNA (PCR) Coronavirus OC43 (PCR) Coronavirus HKU1 (PCR) Coronavirus 229E (PCR) SARS-CoV-2 (PCR) Coronavirus NL63 (PCR) Human Metapneumovir PCR Influenza Type A (PCR) Influenza Type B (PCR) M. pneumoniae (PCR) Parainfluenza 1 (PCR) Parainfluenza 2 (PCR) Parainfluenza 3 (PCR) Parainfluenza 4 (PCR) RSV (PCR) Entero/Rhino (PCR) SARS-CoV-2 RNA (MARISSA) SARS-CoV-2, RNA, NAAT 06/23/23 06/25/23 06/25/23 20:01 06:57 07:16 WBC RBC Hgb Hct MCV MCH MCHC RDW Std Deviation RDW Coeff of Tawanna Plt Count MPV Immature Gran % (Auto) Neut % (Auto) Lymph % (Auto) [place] % (Auto) Eos % (Auto) Baso % (Auto) Neut # (Auto) Lymph # (Auto) [place] # (Auto) Eos # (Auto) Baso # (Auto) Immature Gran # (Auto) Sodium Potassium Chloride Carbon Dioxide Anion Gap BUN Creatinine Est Cr Clr Drug Dosing Est GFR ( Amer) Est GFR (Non-Af Amer) BUN/Creatinine Ratio Glucose Estimat Average Glucose Hemoglobin A1c Calcium Total Bilirubin AST ALT Alkaline Phosphatase Total Protein Albumin Globulin Albumin/Globulin Ratio Triglycerides Cholesterol LDL Cholesterol, Calc VLDL Cholesterol, Calc HDL Cholesterol Cholesterol/HDL Ratio TSH Urine Color Urine Appearance Urine pH Ur Specific [place] Urine Protein Urine Glucose (UA) Urine Ketones Urine Blood Urine Nitrite Urine Bilirubin Urine Urobilinogen Ur Leukocyte Esterase Urine WBC (Auto) Urine RBC (Auto) U Hyaline Cast (Auto) U Epithel Cells (Auto) Urine Bacteria (Auto) Salicylates Urine Opiates Screen Ur Methadone, Qual Acetaminophen Urine Barbiturates Ur Phencyclidine (PCP) U Amphetamin/Meth Scrn MDMA (Ecstasy) Screen U Benzodiazepines Scrn Ur Cocaine Metabolite U Marijuana (THC) Screen Ethyl Alcohol mg/dL Adenovirus (PCR) B. pertussis DNA (PCR) B.parapertussis DNA PCR C. pneumoniae DNA (PCR) Coronavirus OC43 (PCR) Coronavirus HKU1 (PCR) Coronavirus 229E (PCR) SARS-CoV-2 (PCR) NEGATIVE Coronavirus NL63 (PCR) Human Metapneumovir PCR Influenza Type A (PCR) Influenza Type B (PCR) M. pneumoniae (PCR) Parainfluenza 1 (PCR) Parainfluenza 2 (PCR) Parainfluenza 3 (PCR) Parainfluenza 4 (PCR) RSV (PCR) Entero/Rhino (PCR) SARS-CoV-2 RNA (MARISSA) Negative Cancelled SARS-CoV-2, RNA, NAAT Hospital Course (1) Schizophrenia: (2) Prediabetes: Plan 06/21/2023: restarted metformin 06/17/2023: Now on 304 commitment. 06/12/2023: * clozapine increased to 100mg HS * depot haloperidol CONDE 150mg 06/02/2023: Decrease clozapine to 75mg HS. Discontinue cogentin, leave available as prn. Start scheduled colace and senna given use of clozapine. 06/01/2023: Continue clozapine 100mg HS po. Start rosuvastatin 5mg daily (recheck fasting lipid panel in 6 weeks) 05/31/2023: Increase clozapine to 100mg HS po. Discontinue risperidone. Blood work tomorrow AM. 05/30/2023: Continue with clozapine 75mg HS po. Taper risperidone to 0.5mg BID. ANC check for 03/31 and fasting glucose and lipid panel ordered. 05/29/2023: increase clozaril to 75 mg po qhs, given daytime fatigue will decrease Risperdal to 1 mg BID. fasting labs ordered for next CBC on 03/31. 05/28/2023: increase clozaril to 50 mg qhs, when get to 100 mg will taper Risperdal further, in meantime Cogentin is helpful. Next Haldol dec will be due 06/19 and likely give 150 mg if Risperdal tapered by then/EPS remains manageable. 05/27/2023: the patient has historically done best with clozaril and will begin when confirm housing, status with CM, and ability to continue rx with [facility]. 05/26/2023: The patient was admitted to the [facility] on q15 min checks (behavioral with suicide precautions) for safety. The patient will participate in group, recreational, and milieu therapies and will be offered additional individual and family sessions as clinically appropriate. Would benefit from restart of Clozaril, will need to start Risperdal taper, only got 100 mg Haldol dec, will offer Haldol prn rather than standing until better control of dystonia/dysarthria with Cogentin. Need to confirm his status with [facility] and ability to be monitored again with clozaril and retitrate. hold on fasting labs for now. Mental Health & Subst Abuse Tx Psychiatrist Name of Psychiatrist: Katie Lifekia Wilson PA-C Psychiatrist's Date Of Appointment With Psychiatric Provider: 07/01/21 Time of Appointment with Psychiatrist: 2:30pm Therapist Name of Therapist: N/A was supposed to follow w/ [facility] Chemistry Specialist Name of Chemistry Specialist: [place] [facility] Discharge Appointments Home Health Services Home Health Services:: None Smoking Cessation Counseling Tobacco Cessation Medication Prescribed at Discharge: Not Applicable/Non-Smoker Contact Information Discharge Discharge Address: [address] [place] [address] Discharge Plan Discharge Items Patient Disposition: Transfer Behavioral Health Fac Reason For Visit: SCHIZOPHRENIA, SI WITH PLAN Discharge Diagnosis: schizophrenia Activity: Resume your previous activity Non-emergency contact: Primary Care Provider, Psychiatrist, Therapist and Public Policy Mediator Call non-emergency contact if: you have any medication questions and your symptoms worsen Follow-up/Referrals: Lilibeth Morton MD [Primary Care Provider] - Diet: Regular Addtl Attending Provider Instructions: You are being transferred to a longer term hospitalization who will be responsible for your medications and care moving forward. These are our standard discharge instructions for future reference. SPECIAL CARE INSTRUCTIONS: 1. Follow through with your scheduled aftercare appointments. If unable to keep an appointment, please call to reschedule. 2. Take your medication only as prescribed. Medication should not be changed or stopped without the approval of your doctor. In the event of worsening symptoms or concerns about side effects, contact your doctor immediately. 3. Utilize new healthy coping skills, anger management skills, and stress management skills learned during your hospitalization. Journal feelings and process them with a support person. Identify stressors or situations that may result in relapse, deterioration or inappropriate behaviors and develop a plan to deal with those issues. 4. If your coping skills are ineffective and you are in crisis, contact your outpatient providers for direction. If unable to reach your providers, please call the [facility] CRISIS LINE AT , go to the [facility] walk-in center at [address], [address], [place], or go to the closest Emergency Room. 5. Avoid alcohol and un-prescribed drugs. 6. You have been provided with the Mental Health Advance Directives Pamphlet for your review. 7. Your condition is stable for discharge to outpatient level of care, but recovery is an ongoing process. Ifthoughts to harm yourself or others return, follow the safety plan developed during your stay. Planning for a safe return home includes securing weapons. Our treatment team recommends weaponsbe removed from the home until your outpatient provider reassesses your progress. In rare cases where the items themselvescannot be removed, guns and ammunitionshould be secured separatelyand keys stored by a reliable personoutside of the home. If you were admitted on an involuntary commitment, the police or other legal authorities may be involved in this process. AFTERCARE APPOINTMENTS: * Please call your insurance company prior to your scheduled appointment to confirm your aftercare providers are covered. Take your insurance information to your appointments. WHO TO CALL AND WHEN: Medical Emergencies: For questions or emergencies related to your hospital stay, please contact the Inpatient Behavioral Health Unit at [phone]. A cylinder honer is on-call 06/04 for the Behavioral Health Unit for emergencies At any time you feel your situation is an emergency, you may also call 911 immediately. Pending Studies at Discharge: No Studies:: but you will need to continue weekly blood draws under the direction of your new program psychiatrist. Next draw due Thursday05/30/23. Stand-Alone Forms: My [facility] Medications and DC Order Prescriptions: New rosuvastatin 5 mg Tablet 5 mg PO QAM Qty: 1 0RF clozapine 100 mg Tablet 100 mg PO HS Qty: 1 0RF sennosides [Senokot] 8.6 mg Tablet 17.2 mg PO HS Qty: 1 0RF metformin 500 mg Tablet 500 mg PO BIDM Qty: 1 0RF Continued haloperidol decanoate 100 mg/mL solution 150 mg IM Q4WK Qty: 1 0RF docusate sodium 100 mg Capsule 200 mg PO QAM PRN (Reason: constipation) Qty: 1 0RF Discharge Orders: Discharge Order (Routine); Ordered 06/24/23 Ordered By: Gabbi Tovar/Other Patient Handouts: A1C, 5 Steps for Eating Healthier Admission Data Admit Date/Time: 05/26/23 01:45 Attending Provider: Gabbi Vale Admit Provider: Gabbi Vale Primary Care Provider: Lilibeth Morton V. Other Providers: Gabbi Vale Other Interventions: Discharge Summary Assessment (RN) Last Done: 06/25/23 09:13 PSY Interdisciplinary Discharge Planning Last Done: 06/25/23 09:13 Coding Level of Care Code 29133 D/C day mgmt 30 min or < Diagnoses Schizophrenia F20.0 Schizophrenia type: paranoid schizophrenia Prediabetes R73.03
== END 2023-06-25 10:10 | DRG 885 ==
LOC: ED 18:11 → 3S 05-26 01:45 → SUATTDRO 05-26 01:45 → 3S 05-26 02:26

== ENCOUNTER 2024-02-18 18:34 | Inpatient (IN) ==
--- NOTE | 2024-02-18 19:08 | Emergency Department Note ---
Impression & Plan Schizophrenia ED Provider Note HISTORY OF PRESENT ILLNESS: Patient is a 33-year-old male presenting for mental health evaluation. Patient presents in police custody with a 302 warrant. 302 warrant reports that the patient's unable to care for himself and he is stating that he wants to go to [facility]. On my assessment of the patient, he does report he wants to go to [place] because "[place] and there is nothing here for me." He states he has the name and number of a friend in [place]. He states that he does hear voices and he thinks it is God speaking to him. However, he reports that the voice does not tell him to do anything other than to pray. He denies any visual hallucinations. He is not suicidal or homicidal. He denies any command hallucinations. He states that he has been off of his medication for 1 week. ROS: as above PHYSICAL EXAM: Constitutional: Patient appears in no acute distress. HENT: Head: Normocephalic and atraumatic. Eyes: EOMI, PERRL Mouth/Throat: Mucous membranes moist. Neck: Trachea midline. Neck supple. Musculoskeletal: No edema, tenderness or deformity noted. Skin: Warm and dry. No rash, erythema, pallor or cyanosis Psychiatric: Patient appears poorly groomed. Makes fair eye contact. Speech is pressured. Thought process is tangential and difficult to redirect. Neurological: Alert. CN II-XII grossly intact, moving all extremities equally and fully. MDM: - Vitals signs showed hypertension - History obtained via patient and 302 warrant. History as above. - Chronic conditions affecting care: HLD; schizophrenia - Differential diagnoses include, but are not limited to: Manic episode; depression; UTI; electrolyte abnormality - External medical records reviewed. - Laboratory workup interpreted by myself showed normal WBC; stable electrolytes; negative salicylate/acetaminophen/alcohol levels - UA negative for infection - UDS negative - COVID negative - Patient seen in conjunction with behavioral health counter caser. Patient's 302 warrant was upheld by myself on 02/18/2024 at 2017. Patient is very tangential in his thought process and is difficult to redirect. Significant concern for possibility of a manic episode. Difficult to safety planning the patient, as he has no family in the area and his plan is to get on a bus and leave town. Patient was referred up to [facility] inpatient psychiatry unit, [address] [place] [address], and was accepted. - Patient admitted to [address] [place] [address] inpatient psychiatric unit at [facility] for further evaluation and management. 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 Metabolic encephalopathy Eosinophilia Suicide attempt Surgical History No history of previous surgery Family History Denies family history of Colon cancer Ovarian cancer Prostate cancer Myocardial infarction Breast cancer Social History Smoking Status: Current some day smoker Cigarettes Per Day: Patient unresponsive at this time; Hx Alcohol Use: No Hx Substance Use: No Preferred Language: Danish Communication Ability: Effective Visual Impairment: No Limitations Hearing Ability: Normal Camera Operator Required: No Beliefs That Will Affect Care: None marital status: Single Current Living Situation: Other Current Living Situation Comment: Apartment , see ED admission report current occupational status: employed Feels Safe at Home: Yes Childhood Exposure to Second-Hand Smoke: No Dental Care, Regularly: No Physical Activity Frequency: Does not Exercise Seatbelt Use: always Sunscreen Use: No Gender Identity: Male Assistive Devices: None and Glasses Allergies Allergies Allergy/AdvReac Type Severity Reaction Status Date / Time meloxicam AdvReac blurred Verified 12/31/23 13:26 vision naproxen AdvReac blurred Verified 12/31/23 13:26 vision Home Meds Home Medications Medication Instructions Recorded Confirmed lumateperone 42 mg capsule 42 mg PO HS 02/18/24 02/18/24 (Caplyta) Previous Rx's Medication Instructions Recorded rosuvastatin 5 mg tablet 5 mg PO QAM #90 tabs 11/02/23 Results & Data (ED) Vital Signs Vital Signs - 24 hr 02/18/24 18:38 Temperature 37.3 C Temperature Source Oral Pulse Rate 79 Pulse Rhythm Regular Pulse Strength Normal Respiratory Rate 18 Respiratory Effort / Characteristics Non-Labored Respiratory Depth Normal Respiratory Pattern Regular Blood Pressure 148/91 H Blood Pressure Mean 110 Blood Pressure Position Sitting Pulse Oximetry 98 Oxygen Delivery Method Room Air Sepsis Recent Fever Within 48 Hours No Sepsis New/Unexplained Change in Mental Status No Sepsis Action Taken by Nursing No Action Required Laboratory Data 02/18/24 19:10 02/18/24 19:10 Lab Results 02/18/24 02/18/24 Range/Units 18:40 19:10 WBC 9.44 (4.8-10.8) K/ul RBC 4.38 L (4.70-6.10) M/uL Hgb 12.7 L (14.0-18.0) g/dl Hct 37.9 L (42.0-52.0) % MCV 86.5 (80.0-100.0) fL MCH 29.0 (25.0-34.0) pg MCHC 33.5 (32.0-36.0) g/dL RDW Std Deviation 44.8 (36.4-46.3) fL RDW Coeff of Tawanna 14.2 (11.5-14.5) % Plt Count 303 (130-400) K/uL MPV 11.5 (9.4-12.4) fL Immature Gran % (Auto) 0.4 % Neut % (Auto) 63.6 % Lymph % (Auto) 26.7 % Owen % (Auto) 7.6 % Eos % (Auto) 1.1 % Baso % (Auto) 0.6 % Neut # (Auto) 6.00 (1.40-6.50) K/uL Lymph # (Auto) 2.52 (1.20-3.40) K/uL Owen # (Auto) 0.72 H (0.11-0.59) K/uL Eos # (Auto) 0.10 (0.00-0.50) K/uL Baso # (Auto) 0.06 (0.00-0.20) K/uL Immature Gran # (Auto) 0.04 (0.01-0.20) K/uL Sodium 138 (136-145) mmol/L Potassium 3.6 (3.5-5.1) mmol/L Chloride 104 (98-107) mmol/L Carbon Dioxide 26 (21-32) mmol/L Anion Gap 8 (3-11) BUN 15 (6-23) mg/dl Creatinine 0.99 (0.6-1.4) mg/dl Est Cr Clr Drug Dosing Not Reportable Est GFR ( Amer) 117.1 ml/min Est GFR (Non-Af Amer) 101.1 ml/min BUN/Creatinine Ratio 15.2 (10-20) Glucose 98 (70-99(Fasting)) mg/dl Calcium 9.4 (8.6-10.3) mg/dl Total Bilirubin 0.5 (0.2-1.0) mg/dl AST 51 H (13-39) U/L ALT 30 (7-52) U/L Alkaline Phosphatase 68 (34-104) U/L Total Protein 7.9 (6.0-8.3) gm/dl Albumin 4.3 (3.4-5.0) gm/dl Globulin 3.6 (2.5-4.0) gm/dl Albumin/Globulin Ratio 1.2 (0.9-2) TSH 0.710 (0.300-4.500) uIu/ml Urine Color Yellow Urine Appearance Clear (Clear) Urine pH 6.0 (4.5-7.5) Ur Specific [place] 1.031 H (1.000-1.030) Urine Protein 2+ H (Negative) Urine Glucose (UA) Negative (Negative) Urine Ketones Trace H (Negative) Urine Blood Negative (Negative) Urine Nitrite Negative (Negative) Urine Bilirubin Negative (Negative) Urine Urobilinogen Negative (Negative) Ur Leukocyte Esterase Negative (Negative) Urine WBC (Auto) 0-5 (0-5) /hpf Urine RBC (Auto) 0-2 (0-2) /hpf U Hyaline Cast (Auto) 0-2 (0-2) /lpf U Epithel Cells (Auto) 0-2 (0-2) /hpf Urine Bacteria (Auto) None Seen (None Seen) Salicylates < 3.0 L (3.0-30) mg/dl Urine Opiates Screen Neg (Neg) Ur Methadone, Qual Neg (Neg) Urine Fentanyl Screen Neg (Neg) Acetaminophen < 3 L (10-30) ug/ml Urine Barbiturates Neg (Neg) Ur Phencyclidine (PCP) Neg (Neg) U Amphetamin/Meth Scrn Neg (Neg) MDMA (Ecstasy) Screen Neg (Neg) U Benzodiazepines Scrn Neg (Neg) Ur Cocaine Metabolite Neg (Neg) U Marijuana (THC) Screen Neg (Neg) Ethyl Alcohol mg/dL < 10.0 (<10.0) mg/dl SARS-CoV-2, RNA, NAAT NEGATIVE (NEGATIVE) Administered Medications Lorazepam (Lorazepam 1 Mg Tab) 2 mg PO HS LINO Stop: 03/19/24 23:29 Last Admin: 02/18/24 23:39 Dose: 2 mg Documented By: RDS Discharge Plan Visit Data Chief Complaint: Mental Health Evaluation Stated Complaint: 302 ED Provider: Caitie Du Discharge Problem: Schizophrenia Patient Disposition: Admitted As Inpatient Discharge Instructions Interventions: ED Discharge Assessment Last Done: 02/18/24 23:02
[2024-02-18 19:13] LABS: Appearance Urine Clear (Clear); Bacteria Urine Automated None Seen (None Seen); Bilirubin Urine Negative (Negative); Blood Urine Negative (Negative); Cast Urine Automated 0-2 /lpf (0-2); Color Urine Yellow; Epithelial Cell Urine Auto 0-2 /hpf (0-2); Glucose Urine UA Negative (Negative); Ketones Urine Trace (Negative); Leukocyte Esterase Urine Negative (Negative); Nitrite Urine Negative (Negative); Protein Urine 2+ (Negative); RBC Urine Automated 0-2 /hpf (0-2); Specific Gravity Urine 1.031 (1.000-1.030); Urobilinogen Urine Negative (Negative); WBC Urine Automated 0-5 /hpf (0-5)
[2024-02-18 20:01] LABS: Amphetamines+Metham, Urine Neg (Neg); Barbiturates, Urine Neg (Neg); Benzodiazepine, Urine Neg (Neg); Cocaine, Urine Neg (Neg); Fentanyl, Urine Neg (Neg); MDMA (Ecstacy), Urine Neg (Neg); Marijuana, Urine Neg (Neg); Methadone, Urine Neg (Neg); Opiate, Urine Neg (Neg); Phencyclidine, Urine Neg (Neg)
[2024-02-18 20:10] LABS: Alanine Aminotransferase 30 U/L (7-52); Albumin Globulin Ratio 1.2 (0.9-2); Albumin Level 4.3 gm/dl (3.4-5.0); Alkaline Phosphatase 68 U/L (34-104); Anion Gap 8 (3-11); Aspartate Aminotransferase 51 U/L (13-39); BUN Creatinine Ratio 15.2 (10-20); Bilirubin,Total 0.5 mg/dl (0.2-1.0); Blood Urea Nitrogen 15 mg/dl (6-23); Calcium 9.4 mg/dl (8.6-10.3); Carbon Dioxide 26 mmol/L (21-32); Chloride 104 mmol/L (98-107); Est GFR (African American) 117.1 ml/min; Est GFR (Non-African American) 101.1 ml/min; Globulin 3.6 gm/dl (2.5-4.0); Glucose 98 mg/dl (70-99(Fasting)); Potassium 3.6 mmol/L (3.5-5.1); Sodium 138 mmol/L (136-145); Total Protein 7.9 gm/dl (6.0-8.3)
[2024-02-18 20:13] LABS: Basophils # (auto) 0.06 K/uL (0.00-0.20); Basophils % (auto) 0.6 %; Eosinophils % (auto) 1.1 %; Hematocrit (blood only) 37.9 % (42.0-52.0); Hemoglobin 12.7 g/dl (14.0-18.0); Immature Granulocytes # (auto) 0.04 K/uL (0.01-0.20); Immature Granulocytes % (auto) 0.4 %; Lymphocytes # (auto) 2.52 K/uL (1.20-3.40); Lymphocytes % (auto) 26.7 %; Mean Corpuscular Hgb Conc 33.5 g/dL (32.0-36.0); Mean Corpuscular Volume 86.5 fL (80.0-100.0); Mean Platelet Volume 11.5 fL (9.4-12.4); Monocytes # (auto) 0.72 K/uL (0.11-0.59); Monocytes % (auto) 7.6 %; Neutrophils % (auto) 63.6 %; Platelet Count 303 K/uL (130-400); RDW Coefficient of Variation 14.2 % (11.5-14.5); RDW Standard Deviation 44.8 fL (36.4-46.3); Red Blood Count 4.38 M/uL (4.70-6.10); White Blood Count 9.44 K/ul (4.8-10.8)
[2024-02-18 20:16] LABS: Acetaminophen < 3 ug/ml (10-30); Salicylate < 3.0 mg/dl (3.0-30)
[2024-02-18] MEDS ORDERED: ALUMINUM/MAGNESIUM SUSP 30 ML UDC PO PRN (23:25)
[2024-02-18] MEDS ORDERED: MAGNESIUM HYDROXIDE SUSP 30 ML UDC PO PRN (23:25)
[2024-02-18] MEDS ORDERED: SODIUM CHLORIDE 0.65% NA SOLN 45 ML (OCEAN) PRN (23:25)
[2024-02-18] MEDS ORDERED: hydrOXYzine HCl 25 MG TAB PO PRN (23:25)
[2024-02-18] MEDS: LORazepam 1 MG TAB PO SCH (23:39)
[2024-02-19] MEDS: haloperidoL 5 MG TAB PO PRN (07:41)
[2024-02-19 08:09] LABS: Chol HDL Ratio 3.3 (0-5)
[2024-02-19 08:39] LABS: Estimated Average Glucose 128 mg/dl; Hemoglobin A1C 6.1 % (4.5-5.6)
[2024-02-19] MEDS ORDERED: BENZTROPINE MESYLATE 1 MG TAB PO PRN (11:53)
--- NOTE | 2024-02-19 11:53 | History & Physical ---
Date of Service February 19, 2024 Impression / Recommendations Impression Patient has a documented history of schizophrenia and presents recurrence of psychosis in the context of medication nonadherence. Patient endorsed self discontinuing antipsychotic due to side effects. He presented a disorganized thought process and endorsed auditory hallucinations instructing him to pray. collateral reveals patient was stable on Caplyta however does not have insurance and no long-term options to continue the medication. Medications were reviewed and we will start Abilify given similar partial agonist effect as Caplyta and limited metabolic side effects (patient is prediabetic). Will work with social security assessor and piano case maker for disposition planning. May benefit from a transition to long-acting injectable prior to discharge. Patient is MNPR due to his ongoing psychosis. Overall, I spent a total of 60 minutes with this case including review of chart records, nursing report, review of lab work, direct evaluation of the patient at bedside, counseling the patient, multidisciplinary team meeting, orders, and documentation in the electronic health record. (1) Schizophrenia: (2) Prediabetes: Plan 02/19/2024: Start Abilify 10 mg daily. Continue lorazepam 2 mg at bedtime. Start benztropine 1 mg twice daily as needed for EPS and dystonia. Start Colace 100 mg twice daily for constipation. Resume home Rosuvastatin 5mg daily. Inventory Assets Strengths: has outpatient resources, employed Needs: insurance, medication management Suicide Risk Level Suicide Risk Level: Moderate (q15 min suicide checks) Risk Factors Assessment Male: Yes : No Do You Have Access To A Gun?: No Health Problems: Yes Mental Health Diagnoses: Yes Substance Use Disorders: No Previous Attempt: No Family History of Suicide: No Previous Psychiatric Hospitalization: Yes Hopelessness: No Protective Factors Assessment Moravian Beliefs: Yes : Yes Responsible for Young Children: No Employed: Yes ([employer]) Stable Relationships: No Supportive Family: No Good Rapport with Provider: Yes Absence of Any Risk Factors Above: No Psychiatric History Identifying Data LEXII TEE is a 33-year-old black employed domiciled male history of schizophrenia, alcohol abuse, anemia who presents in police custody for psycho sis and inability to care for self. Collateral reveals he was off his medication for 1 week (Caplyta), endorsed hearing voices of God, and presented tangential thought process. He presented plans to travel to [facility].He was admitted on 02/18/24 21:47 on a 302 involuntary commitment for psychosis and inability to care for self. Chief Complaint Psychosis History of Present Illness Chart review: Patient was discharged from this facility on 06/25/2023 on Haldol Decanoate 100 mg and clozapine 75 mg at bedtime with initial complaints of "bus talking to him". Patient was discharged to [facility] from 06/25/2023 to 09/29/2023 where he was discharged on Haldol 7.5 mg at bedtime, lithium 900 mg at bedtime. Collateral from [facility] piano case maker: Patient is to a woman in [place]. Was having akathisia and dystonia from Haldol. Works 80 hours a week at both [employer] and [employer]. Has refused Medicare in the past due to not wanting government assistance; cultural value. Was getting Caplyta through samples on an outpatient basis. Lab review: Lipid panel significant for elevated AST at 51 and hemoglobin A1c of 6.1 - prediabetic. BMP stable and CBC significant for mild anemia with hemoglobin of 12.7. Overnight patient was given Ativan 2 mg at bedtime. Caplyta not on formulary and was not given. Received Haldol 5 mg as needed this a.m. On initial approach patient was asleep and would not wake up. Patient was later seen and presented as slightly lucid with some thought disorganization (thought blocking, repetitive, dysarthria). He reports doing the best on Caplyta but self-discontinued the medication due to dry mouth complaints. Reports Haldol was effective however felt restless and that it never got better. Endorses voices telling him to pray that for started since 2016. When asked to describe the voice he said it was someone he did not know. Has not been tried on Abilify. He denies suicidal and homicidal ideation. He asks us to inform his employer that he is in the hospital. Past Psychiatric History Current Psychiatric Diagnosis: Schizophrenia Previous Psych Admissions: multiple Do You Have Access To A Gun?: No History of Previous Suicide Attempt: Yes (2019) Past Medication Trials: see HPI Allergies Allergy/AdvReac Type Severity Reaction Status Date / Time meloxicam AdvReac blurred Verified 12/31/23 13:26 vision naproxen AdvReac blurred Verified 12/31/23 13:26 vision Home Medications Medication Instructions Recorded Confirmed Type rosuvastatin 5 mg tablet 5 mg PO QAM #90 tabs 11/02/23 12/31/23 Rx lumateperone 42 mg capsule 42 mg PO HS 02/18/24 02/18/24 History (Caplyta) Family History Family History of: Doesn't Know Alcohol History Hx of Alcohol Use Over the Past 12 Months: Yes AUDIT Total Score: 0 Smoking Use Have You Smoked or Used Tobacco Products in the Last 30 Days: No tobacco type: cigarettes Smoking Status: Unknown if ever smoked Substance History Hx of Prescription Med Misuse Over the Past 12 Months: No Hx of Over the Counter Med Misuse Over the Past 12 Months: No Hx of Inhalent Misuse Over the Past 12 Months: No Hx of Organic Substance Use Over the Past 12 Months: No Hx of Illegal Substances/Street Drug Use Over Past 12 Months: No Problems as a Result of Past Substance Use: None Identified Personal History Living Arrangements: Supervised Living Born In: [place] Beliefs That Will Affect Care: None Hx Legal Problems: Yes (Per records, has a history of multiple arrests including felony charges in 2014 and 2015) Hx Traumatic Life Events: Yes Patient History Medical History Suicidal ideation Hyperlipidemia Hallucinations Mood disorder Schizophrenia Unprotected sex Cough Medication side effects Weakness generalized 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 Metabolic encephalopathy Eosinophilia Suicide attempt Surgical History No history of previous surgery Family History Denies family history of Colon cancer Ovarian cancer Prostate cancer Myocardial infarction Breast cancer Social History Smoking Status: Unknown if ever smoked Cigarettes Per Day: Patient unresponsive at this time; Hx Alcohol Use: No Hx Substance Use: No Preferred Language: Telugu Communication Ability: Effective Visual Impairment: No Limitations Hearing Ability: Normal Filler Machine Operator Required: No Beliefs That Will Affect Care: None marital status: Single Current Living Situation: Other Current Living Situation Comment: Apartment , see ED admission report current occupational status: employed Feels Safe at Home: Yes Childhood Exposure to Second-Hand Smoke: No Dental Care, Regularly: No Physical Activity Frequency: Does not Exercise Seatbelt Use: always Sunscreen Use: No Gender Identity: Male Assistive Devices: None and Glasses Physical Exam Mental Examination: Appearance: Unkempt and Disheveled Eye Contact: Diverts Contact Motor Behavior: Restless Speech: Tangential, Disorganized, Slurred, Repetitive and Delayed Mood: Dyphoric Affect: Congruent and Flat Thought Process: Disorganized, Incoherent, Perseveration and Slowed Thinking Thought Content: Thought Blocking Hallucinations: Auditory Insight: Poor (to limited) Judgement: Poor Vital Signs (Past 24 Hours): Last Vital Signs Temp 36.9 C 02/18/24 23:41 Pulse 82 02/18/24 23:41 Resp 18 02/18/24 23:41 BP 157/99 H 02/18/24 23:41 Pulse Ox 97 02/18/24 23:41 O2 Del Method Room Air 02/18/24 23:41 Results & Data ([facility]) Laboratory Results Laboratory Results - last 24 hr 02/18/24 02/18/24 02/19/24 18:40 19:10 07:35 WBC 9.44 RBC 4.38 L Hgb 12.7 L Hct 37.9 L MCV 86.5 MCH 29.0 MCHC 33.5 RDW Std Deviation 44.8 RDW Coeff of Tawanna 14.2 Plt Count 303 MPV 11.5 Immature Gran % (Auto) 0.4 Neut % (Auto) 63.6 Lymph % (Auto) 26.7 [place] % (Auto) 7.6 Eos % (Auto) 1.1 Baso % (Auto) 0.6 Neut # (Auto) 6.00 Lymph # (Auto) 2.52 [place] # (Auto) 0.72 H Eos # (Auto) 0.10 Baso # (Auto) 0.06 Immature Gran # (Auto) 0.04 Sodium 138 Potassium 3.6 Chloride 104 Carbon Dioxide 26 Anion Gap 8 BUN 15 Creatinine 0.99 Est Cr Clr Drug Dosing Not Reportable Est GFR ( Amer) 117.1 Est GFR (Non-Af Amer) 101.1 BUN/Creatinine Ratio 15.2 Glucose 98 Estimat Average Glucose 128 Hemoglobin A1c 6.1 H Calcium 9.4 Total Bilirubin 0.5 AST 51 H ALT 30 Alkaline Phosphatase 68 Total Protein 7.9 Albumin 4.3 Globulin 3.6 Albumin/Globulin Ratio 1.2 Triglycerides 63 Cholesterol 172 LDL Cholesterol, Calc 107 VLDL Cholesterol, Calc 13 HDL Cholesterol 52 Cholesterol/HDL Ratio 3.3 TSH 0.710 Urine Color Yellow Urine Appearance Clear Urine pH 6.0 Ur Specific [place] 1.031 H Urine Protein 2+ H Urine Glucose (UA) Negative Urine Ketones Trace H Urine Blood Negative Urine Nitrite Negative Urine Bilirubin Negative Urine Urobilinogen Negative Ur Leukocyte Esterase Negative Urine WBC (Auto) 0-5 Urine RBC (Auto) 0-2 U Hyaline Cast (Auto) 0-2 U Epithel Cells (Auto) 0-2 Urine Bacteria (Auto) None Seen Salicylates < 3.0 L Urine Opiates Screen Neg Ur Methadone, Qual Neg Urine Fentanyl Screen Neg Acetaminophen < 3 L Urine Barbiturates Neg Ur Phencyclidine (PCP) Neg U Amphetamin/Meth Scrn Neg MDMA (Ecstasy) Screen Neg U Benzodiazepines Scrn Neg Ur Cocaine Metabolite Neg U Marijuana (THC) Screen Neg Ethyl Alcohol mg/dL < 10.0 SARS-CoV-2, RNA, NAAT NEGATIVE Current Inpatient Medications Current Inpatient Medications: Current Inpatient Medications Acetaminophen (Acetaminophen 325 Mg Tab) 650 mg PO Q4H PRN PRN Reason: Headache or Minor Fever Stop: 03/19/24 23:24 Al Hydrox/Mg Hydrox/Simethicone (Aluminum/Magnesium Susp 30 Ml Udc) 30 ml PO Q4H PRN PRN Reason: GI Upset Stop: 03/19/24 23:24 Haloperidol (Haloperidol 5 Mg Tab) 5 mg PO Q8 PRN PRN Reason: Psychosis Stop: 03/19/24 23:28 Last Admin: 02/19/24 07:41 Dose: 5 mg Hydroxyzine HCl (Hydroxyzine Hcl 25 Mg Tab) 50 mg PO HSZ PRN PRN Reason: Insomnia Stop: 03/19/24 23:24 Hydroxyzine HCl (Hydroxyzine Hcl 25 Mg Tab) 50 mg PO Q4H PRN PRN Reason: Anxiety Stop: 03/19/24 23:24 Lorazepam (Lorazepam 1 Mg Tab) 2 mg PO HS LINO Stop: 03/19/24 23:29 Last Admin: 02/18/24 23:39 Dose: 2 mg Magnesium Hydroxide (Magnesium Hydroxide Susp 30 Ml Udc) 30 ml PO DAILY PRN PRN Reason: Constipation Stop: 03/19/24 23:24 Sodium Chloride (Sodium Chloride 0.65% Na Soln 45 Ml ([place])) 1 - 2 sprays NA PRN PRN PRN Reason: Nasal Dryness/Congestion Stop: 03/19/24 23:24
[2024-02-19] MEDS: ROSUVASTATIN CALCIUM 5 MG TAB PO SCH (12:41)
[2024-02-19] MEDS: DOCUSATE SODIUM 100 MG CAP PO SCH (12:41)
[2024-02-19] MEDS: ARIPiprazole 10 MG TAB PO SCH (12:41)
[2024-02-19] MEDS: COUGH DROP (SUGAR FREE) LOZ 24 LOZ/1 BOX BUCCAL PRN (21:05)
--- NOTE | 2024-02-20 09:59 | Psychiatric Progress Note ---
Date of Service February 20, 2024 Impression / Recommendations Impression 33 yo man with a history of schizophrenia and presents recurrence of psychosis in the context of medication nonadherence due to dry mouth side effects on a 302 commitment. Diagnostically consistent with acute exacerbation of schizophrenia. 02/20/2024: Ongoing psychosis but responding well to initial doses of Abilify and haldol prn with some improving insight. Continues to actively respond to internal stimuli but better able to reality-test this. Discussed medication treatment options in detail. He continues to consent to Abilify and Haldol prn for schizophrenia. Reviewed side effects including but not limited to: movement (TD, NMS), cardiac (QTc prolongation), and metabolic (stroke, insulin resistance) and necessity for fasting lipid and glucose labwork and AIMS done with score of 0. Reviewed labwork showing pre-diabetes based on hbA1c and normal fasting lipid panel. MNPR due to his ongoing psychosis. Overall, I spent a total of 50 minutes with this case including review of chart records, nursing report, review of lab work, direct evaluation of the patient at bedside, counseling the patient, multidisciplinary team meeting, orders, and documentation in the electronic health record. (1) Schizophrenia: (2) Prediabetes: Plan 02/20/2024: Increase Abilify to 15mg daily. 02/19/2024: The patient was admitted to the [facility] ([facility] mental [facility]) on q15 min checks (behavioral with suicide precautions) for safety. The patient will participate in group, recreational, and milieu therapies and will be offered additional individual and family sessions as clinically appropriate. Start Abilify 10 mg daily. Continue lorazepam 2 mg at bedtime. Start benztropine 1 mg twice daily as needed for EPS and dystonia. Start Colace 100 mg twice daily for constipation. Resume home Rosuvastatin 5mg daily. Inventory Assets Strengths: has outpatient resources, employed Needs: insurance, medication management Suicide Risk Level Suicide Risk Level: Moderate (q15 min suicide checks) (denies SI but with disorganized behavior and psychosis, feels safe in the hospital ) Risk Factors Assessment Male: Yes : No Do You Have Access To A Gun?: No Health Problems: Yes Mental Health Diagnoses: Yes Substance Use Disorders: No Previous Attempt: No Family History of Suicide: No Previous Psychiatric Hospitalization: Yes Hopelessness: No Protective Factors Assessment Taoism Beliefs: Yes : Yes Responsible for Young Children: No Employed: Yes ([employer]) Stable Relationships: No Supportive Family: No Good Rapport with Provider: Yes Absence of Any Risk Factors Above: No Interval History Identifying Information LEXII TEE is a 33-year-old man with a history of schizophrenia, alcohol use, anemia who presents in police custody for psychosis and inability to care for self. Collateral reveals he was off his medication for 1 week (Caplyta), endorsed hearing voices of God, and presented tangential thought process. He was admitted on 02/18/24 21:47 on a 302 involuntary commitment for psychosis and inability to care for self. Chief Complaint "I have a serious problem". Review of Systems Sleep Information Total Hours of Sleep: 6.5 Meal Information Percent Meal Consumed - Breakfast: 100 Percent Meal Consumed - Lunch: 100 Percent Meal Consumed - Dinner: 100 Subjective Subjective Patient was seen & assessed and interval progress reviewed with treatment team nursing and social work. Responding to internal stimuli. Had a dose of haldol po prn this morning. Lots of hand gestures to himself. Describes hearing a voice, which tells him it is God, the day he stopped his Caplyta telling him that [place] was going to attack the [place] because the [place] helped [place]. Today he reflects that he knows the voice is not God but that this was scary and the voice told him to pray. States he stopped Capltya due to dry mouth that he was coping with by drinking lots of water but that in turn made it so he had to use the bathroom multiple times at night and so he stopped the medication. He now feels he would be willing to go back on it "if I have to". For now he likes the abilify and finds the haldol helpful. Physical Exam Psychiatric Orientation: alert and oriented x 3 Apperance: appropriately dressed and + disheveled Eye Contact: + fair eye contact Motor Behavior: + psychomotor agitation Speech: + abnormal rate/rhythm/volume of speech (stutter) Affect: + flat affect Mood: + anxious mood Thought Process: + circumstantial thought process and + looseness of associations Thought Content: + delusions Suicidal Thoughts: denies suicidal thoughts Homicidal Thoughts: denies homicidal thoughts Hallucinations: + auditory hallucinations; no visual hallucinations Insight: + fair insight Judgment: + limited judgement Vital Signs (Past 24 Hours) Last Vital Signs Temp 36.9 C 02/18/24 23:41 Pulse 82 02/18/24 23:41 Resp 18 02/18/24 23:41 BP 157/99 H 02/18/24 23:41 Pulse Ox 97 02/18/24 23:41 O2 Del Method Room Air 02/18/24 23:41 A physical exam was performed in the ED by Dr. Du for the purposes of medical clearance. I accept that physical as correct and adequate for the purposes of the inpatient physical exam. Results & Data ([facility]) Current Inpatient Medications Current Inpatient Medications: Current Inpatient Medications Acetaminophen (Acetaminophen 325 Mg Tab) 650 mg PO Q4H PRN PRN Reason: Headache or Minor Fever Stop: 03/19/24 23:24 Al Hydrox/Mg Hydrox/Simethicone (Aluminum/Magnesium Susp 30 Ml Udc) 30 ml PO Q4H PRN PRN Reason: GI Upset Stop: 03/19/24 23:24 Aripiprazole (Aripiprazole 10 Mg Tab) 10 mg PO QAM LINO Stop: 03/20/24 11:59 Last Admin: 02/20/24 08:25 Dose: 10 mg Benztropine Mesylate (Benztropine Mesylate 1 Mg Tab) 1 mg PO BID PRN PRN Reason: EPS, dystonia Stop: 03/20/24 11:52 Docusate Sodium (Docusate Sodium 100 Mg Cap) 100 mg PO BID LINO Stop: 03/20/24 11:59 Last Admin: 02/20/24 08:25 Dose: 100 mg Haloperidol (Haloperidol 5 Mg Tab) 5 mg PO Q8 PRN PRN Reason: Psychosis Stop: 03/19/24 23:28 Last Admin: 02/20/24 08:27 Dose: 5 mg Hydroxyzine HCl (Hydroxyzine Hcl 25 Mg Tab) 50 mg PO HSZ PRN PRN Reason: Insomnia Stop: 03/19/24 23:24 Hydroxyzine HCl (Hydroxyzine Hcl 25 Mg Tab) 50 mg PO Q4H PRN PRN Reason: Anxiety Stop: 03/19/24 23:24 Lorazepam (Lorazepam 1 Mg Tab) 2 mg PO HS LINO Stop: 03/19/24 23:29 Last Admin: 02/19/24 21:04 Dose: 2 mg Magnesium Hydroxide (Magnesium Hydroxide Susp 30 Ml Udc) 30 ml PO DAILY PRN PRN Reason: Constipation Stop: 03/19/24 23:24 Menthol (Cough Drop (Sugar Free) Yaneli 24 Yaneli/1 Box) 1 yaneli BUCCAL Q2H PRN PRN Reason: Cough Stop: 03/20/24 20:55 Last Admin: 02/19/24 21:05 Dose: 1 yaneli Rosuvastatin Calcium (Rosuvastatin Calcium 5 Mg Tab) 5 mg PO QAM LINO Stop: 03/20/24 11:59 Last Admin: 02/20/24 08:25 Dose: 5 mg Sodium Chloride (Sodium Chloride 0.65% Na Soln 45 Ml ([place])) 1 - 2 sprays NA PRN PRN PRN Reason: Nasal Dryness/Congestion Stop: 03/19/24 23:24 Mental Health & Subst Abuse Tx Hub Borer Name of Hub Borer: Batool Hoffman MH/ID Post Discharge Appointments Primary Care Physician Name Of Family Doctor/PCP: GALO
[2024-02-21] MEDS: ARIPiprazole 15 MG TAB PO SCH (07:52)
--- NOTE | 2024-02-21 08:53 | Psychiatric Progress Note ---
Date of Service February 21, 2024 Impression / Recommendations Impression 33 yo man with a history of schizophrenia and presents recurrence of psychosis in the context of medication nonadherence due to dry mouth side effects on a 302 commitment. Diagnostically consistent with acute exacerbation of schizophrenia. A: Ongoing psychosis with some thought blocking requiring haldol prn. Haldol seems to be helping with symptoms, unclear how much abilify is helping so far. Will attempt to reduce use of haldol prn if possible with goal of antipsychotic monotherapy if tolerated. MNPR due to his ongoing psychosis. Overall, I spent a total of 25 minutes with this case including review of chart records, nursing report, review of lab work, direct evaluation of the patient at bedside, counseling the patient, multidisciplinary team meeting, orders, and documentation in the electronic health record. (1) Schizophrenia: (2) Prediabetes: Plan 02/20/2024: Increase Abilify to 15mg daily. 02/19/2024: The patient was admitted to the [facility] ([facility] health unit) on q15 min checks (behavioral with suicide precautions) for safety. The patient will participate in group, recreational, and milieu therapies and will be offered additional individual and family sessions as clinically appropriate. Start Abilify 10 mg daily. Continue lorazepam 2 mg at bedtime. Start benztropine 1 mg twice daily as needed for EPS and dystonia. Start Colace 100 mg twice daily for constipation. Resume home Rosuvastatin 5mg daily. Inventory Assets Strengths: has outpatient resources, employed Needs: insurance, medication management Suicide Risk Level Suicide Risk Level: Moderate (q15 min suicide checks) (denies SI but with disorganized behavior and psychosis, feels safe in the hospital ) Risk Factors Assessment Male: Yes : No Do You Have Access To A Gun?: No Health Problems: Yes Mental Health Diagnoses: Yes Substance Use Disorders: No Previous Attempt: No Family History of Suicide: No Previous Psychiatric Hospitalization: Yes Hopelessness: No Protective Factors Assessment Tenriism Beliefs: Yes : Yes Responsible for Young Children: No Employed: Yes ([employer]) Stable Relationships: No Supportive Family: No Good Rapport with Provider: Yes Absence of Any Risk Factors Above: No Interval History Identifying Information LEXII TEE is a 33-year-old man with a history of schizophrenia, alcohol use, anemia who presents in police custody for psychosis and inability to care for self. Collateral reveals he was off his medication for 1 week (Caplyta), endorsed hearing voices of God, and presented tangential thought process. He was admitted on 02/18/24 21:47 on a 302 involuntary commitment for psychosis and inability to care for self. Chief Complaint "I'm very very well". Review of Systems Sleep Information Total Hours of Sleep: 8 Sleep Comments: Required HS Ativan and Abilify Meal Information Percent Meal Consumed - Breakfast: 100 Percent Meal Consumed - Lunch: 100 Percent Meal Consumed - Dinner: 100 Subjective Subjective Patient was seen & assessed and interval progress reviewed with treatment team nursing and social work. Last evening attended community meeting. Mumbling at times. Received prn of haldol this morning. Still disorganized and forgetting things at times. Still responding to internal stimuli and observed making hands gestures and speaking to himself. Minimizes internal stimuli with me. Reports his mood is improved due to not hearing voices and pleased he was able to talk to his bosses at work. Denies any medication side effects. Physical Exam Psychiatric Orientation: alert and oriented x 3 Apperance: appropriately dressed and + disheveled Eye Contact: + fair eye contact Motor Behavior: + psychomotor agitation Speech: + abnormal rate/rhythm/volume of speech (stutter) Affect: + flat affect Mood: + anxious mood Thought Process: + thought blocking and + looseness of associations Thought Content: reality based without delusions Suicidal Thoughts: denies suicidal thoughts Homicidal Thoughts: denies homicidal thoughts Hallucinations: + auditory hallucinations (observed actively responding); no visual hallucinations Insight: + fair insight Judgment: + limited judgement Vital Signs (Past 24 Hours) Last Vital Signs Temp 37.1 C 02/21/24 06:42 Pulse 98 H 02/21/24 06:42 Resp 16 02/21/24 06:42 BP 137/94 02/21/24 06:42 Pulse Ox 99 02/21/24 06:42 O2 Del Method Room Air 02/21/24 06:42 Results & Data ([facility]) Current Inpatient Medications Current Inpatient Medications: Current Inpatient Medications Acetaminophen (Acetaminophen 325 Mg Tab) 650 mg PO Q4H PRN PRN Reason: Headache or Minor Fever Stop: 03/19/24 23:24 Al Hydrox/Mg Hydrox/Simethicone (Aluminum/Magnesium Susp 30 Ml Udc) 30 ml PO Q4H PRN PRN Reason: GI Upset Stop: 03/19/24 23:24 Aripiprazole (Aripiprazole 15 Mg Tab) 15 mg PO QAM [facility] Stop: 03/22/24 08:59 Last Admin: 02/21/24 07:52 Dose: 15 mg Benzonatate (Benzonatate 100 Mg Capsule) 100 mg PO BID PRN PRN Reason: Cough Stop: 03/21/24 15:25 Benztropine Mesylate (Benztropine Mesylate 1 Mg Tab) 1 mg PO BID PRN PRN Reason: EPS, dystonia Stop: 03/20/24 11:52 Docusate Sodium (Docusate Sodium 100 Mg Cap) 100 mg PO BID LINO Stop: 03/20/24 11:59 Last Admin: 02/21/24 07:52 Dose: 100 mg Haloperidol (Haloperidol 5 Mg Tab) 5 mg PO Q8 PRN PRN Reason: Psychosis Stop: 03/19/24 23:28 Last Admin: 02/21/24 07:52 Dose: 5 mg Hydroxyzine HCl (Hydroxyzine Hcl 25 Mg Tab) 50 mg PO HSZ PRN PRN Reason: Insomnia Stop: 03/19/24 23:24 Hydroxyzine HCl (Hydroxyzine Hcl 25 Mg Tab) 50 mg PO Q4H PRN PRN Reason: Anxiety Stop: 03/19/24 23:24 Lorazepam (Lorazepam 1 Mg Tab) 2 mg PO HS LINO Stop: 03/19/24 23:29 Last Admin: 02/20/24 20:25 Dose: 2 mg Magnesium Hydroxide (Magnesium Hydroxide Susp 30 Ml Udc) 30 ml PO DAILY PRN PRN Reason: Constipation Stop: 03/19/24 23:24 Menthol (Cough Drop (Sugar Free) Yaneli 24 Yaneli/1 Box) 1 yaneli BUCCAL Q2H PRN PRN Reason: Cough Stop: 03/20/24 20:55 Last Admin: 02/19/24 21:05 Dose: 1 yaneli Rosuvastatin Calcium (Rosuvastatin Calcium 5 Mg Tab) 5 mg PO QAM [facility] Stop: 03/20/24 11:59 Last Admin: 02/21/24 07:53 Dose: 5 mg Sodium Chloride (Sodium Chloride 0.65% Na Soln 45 Ml ([place])) 1 - 2 sprays NA PRN PRN PRN Reason: Nasal Dryness/Congestion Stop: 03/19/24 23:24 Mental Health & Subst Abuse Tx Traffic Superintendent Name of Traffic Superintendent: Batool Hoffman MH/ID Post Discharge Appointments Primary Care Physician Name Of Family Doctor/PCP: GALO
[2024-02-21] MEDS ORDERED: ONDANSETRON 4 MG OD TAB PO PRN (14:45)
[2024-02-21] MEDS ORDERED: LORazepam 1 MG TAB PO PRN (15:06)
[2024-02-21] MEDS ORDERED: DOCUSATE SODIUM 100 MG CAP PO PRN (15:07)
[2024-02-21] MEDS: BENZONATATE 100 MG CAPSULE PO PRN (23:46)
[2024-02-22 06:54] VITALS: O2SAT 97
--- NOTE | 2024-02-22 09:06 | Psychiatric Progress Note ---
Date of Service February 22, 2024 Impression / Recommendations Impression 33 yo man with a history of schizophrenia and presents recurrence of psychosis in the context of medication nonadherence due to dry mouth side effects on a 302 commitment now voluntary. Diagnostically consistent with acute exacerbation of schizophrenia. A: Ongoing psychosis and some increased irritability yesterday. Appetite seems much higher since starting Abilify and he's already gaining weight. Given this will discontinue Abilify and switch to haldol monotherapy as this has worked very well in the past and he prefers this.Additionally haldol CONDE is affordable given his insurance limitations. Reviewed side effects including but not limited to: movement (acute dystonic reaction and need to treat this as an emergent concern and seek immediate medical attention, TD, NMS), cardiac (QTc prolongation), and metabolic (stroke, insulin resistance) and necessity for fasting lipid and glucose labwork and AIMS done with score of 0. MNPR due to his ongoing psychosis. Overall, I spent a total of 50 minutes with this case including review of chart records, nursing report, review of lab work, direct evaluation of the patient at bedside, counseling the patient, multidisciplinary team meeting, orders, and doc umentation in the electronic health record and speaking with his outpatient behavioral health case manager. (1) Schizophrenia: (2) Prediabetes: Plan 02/22/2024: Discontinue abilify. Start haldol 5mg BID. Continue Cogentin prn. 02/21/2024: Continue current medications and tx plan 02/20/2024: Increase Abilify to 15mg daily. 02/19/2024: The patient was admitted to the [facility] ([facility] mental health unit) on q15 min checks (behavioral with suicide precautions) for safety. The patient will participate in group, recreational, and milieu therapies and will be offered additional individual and family sessions as clinically appropriate. Start Abilify 10 mg daily. Continue lorazepam 2 mg at bedtime. Start benztropine 1 mg twice daily as needed for EPS and dystonia. Start Colace 100 mg twice daily for constipation. Resume home Rosuvastatin 5mg daily. Inventory Assets Strengths: has outpatient resources, employed Needs: insurance, medication management Suicide Risk Level Suicide Risk Level: Moderate (q15 min suicide checks) (denies SI but with disorganized behavior and psychosis, feels safe in the hospital ) Risk Factors Assessment Male: Yes : No Do You Have Access To A Gun?: No Health Problems: Yes Mental Health Diagnoses: Yes Substance Use Disorders: No Previous Attempt: No Family History of Suicide: No Previous Psychiatric Hospitalization: Yes Hopelessness: No Protective Factors Assessment Shinto Beliefs: Yes : Yes Responsible for Young Children: No Employed: Yes ([employer]) Stable Relationships: No Supportive Family: No Good Rapport with Provider: Yes Absence of Any Risk Factors Above: No Interval History Identifying Information LEXII TEE is a 33-year-old man with a history of schizophrenia, alcohol use, anemia who presents in police custody for psychosis and inability to care for self. Collateral reveals he was off his medication for 1 week (Caplyta), endorsed hearing voices of God, and presented tangential thought process. He was admitted on 02/18/24 21:47 on a 302 involuntary commitment for psychosis and inability to care for self. Chief Complaint "I'm ok". Review of Systems Sleep Information Total Hours of Sleep: 7 Sleep Comments: HS Ativan Meal Information Percent Meal Consumed - Breakfast: 100 Percent Meal Consumed - Lunch: 100 Percent Meal Consumed - Dinner: 100 Subjective Subjective Patient was seen & assessed and interval progress reviewed with treatment team nursing and social work. Got haldol prn around 3pm after getting irritable when he couldn't order food from [employer] using his phone. Continues to respond to internal stimuli. Reports he's been very hungry and often requests additional food items. He feels his appetite has increased since starting the new medications. He has found haldol helpful in the past and prefers to be on this. Reviewed with his CM that he received haldol CONDE at [facility] but this was switched to Caplyta at [facility] due to concerns about possible dystonia from some muscle stiffness and due to cost concerns. He is agreeable to signing in voluntarily since his 302 will be expiring. Physical Exam Psychiatric Orientation: alert and oriented x 3 Apperance: appropriately dressed and + disheveled Eye Contact: + fair eye contact Motor Behavior: no abnormal motor movements Speech: + abnormal rate/rhythm/volume of speech (stutter) Affect: + flat affect Mood: + anxious mood Thought Process: + thought blocking and + looseness of associations Thought Content: reality based without delusions Suicidal Thoughts: denies suicidal thoughts Homicidal Thoughts: denies homicidal thoughts Hallucinations: + auditory hallucinations (observed actively responding); no visual hallucinations Insight: + limited insight Judgment: + limited judgement Vital Signs (Past 24 Hours) Last Vital Signs Temp 36.4 C L 02/22/24 06:52 Pulse 98 H 02/22/24 06:52 Resp 16 02/22/24 06:52 BP 113/72 02/22/24 06:52 Pulse Ox 97 02/22/24 06:52 O2 Del Method Room Air 02/22/24 06:52 Results & Data ([facility]) Current Inpatient Medications Current Inpatient Medications: Current Inpatient Medications Acetaminophen (Acetaminophen 325 Mg Tab) 650 mg PO Q4H PRN PRN Reason: Headache or Minor Fever Stop: 03/19/24 23:24 Al Hydrox/Mg Hydrox/Simethicone (Aluminum/Magnesium Susp 30 Ml Udc) 30 ml PO Q4H PRN PRN Reason: GI Upset Stop: 03/19/24 23:24 Aripiprazole (Aripiprazole 15 Mg Tab) 15 mg PO QAM LINO Stop: 03/22/24 08:59 Last Admin: 02/22/24 07:33 Dose: 15 mg Benzonatate (Benzonatate 100 Mg Capsule) 100 mg PO BID PRN PRN Reason: Cough Stop: 03/21/24 15:25 Last Admin: 02/21/24 23:46 Dose: 100 mg Benztropine Mesylate (Benztropine Mesylate 1 Mg Tab) 1 mg PO BID PRN PRN Reason: EPS, dystonia Stop: 03/20/24 11:52 Docusate Sodium (Docusate Sodium 100 Mg Cap) 100 mg PO BID PRN PRN Reason: Constipation Stop: 03/20/24 11:59 Haloperidol (Haloperidol 5 Mg Tab) 5 mg PO Q8 PRN PRN Reason: Psychosis Stop: 03/19/24 23:28 Last Admin: 02/21/24 14:53 Dose: 5 mg Hydroxyzine HCl (Hydroxyzine Hcl 25 Mg Tab) 50 mg PO HSZ PRN PRN Reason: Insomnia Stop: 03/19/24 23:24 Hydroxyzine HCl (Hydroxyzine Hcl 25 Mg Tab) 50 mg PO Q4H PRN PRN Reason: Anxiety Stop: 03/19/24 23:24 Lorazepam (Lorazepam 1 Mg Tab) 2 mg PO HS LINO Stop: 03/19/24 23:29 Last Admin: 02/21/24 21:06 Dose: 2 mg Lorazepam (Lorazepam 1 Mg Tab) 1 mg PO BID PRN PRN Reason: Agitation Stop: 03/22/24 15:05 Magnesium Hydroxide (Magnesium Hydroxide Susp 30 Ml Udc) 30 ml PO DAILY PRN PRN Reason: Constipation Stop: 03/19/24 23:24 Menthol (Cough Drop (Sugar Free) Yaneli 24 Yaneli/1 Box) 1 yaneli BUCCAL Q2H PRN PRN Reason: Cough Stop: 03/20/24 20:55 Last Admin: 02/19/24 21:05 Dose: 1 yaneli Ondansetron HCl (Ondansetron 4 Mg Od Tab) 4 mg PO BID PRN PRN Reason: Nausea Stop: 03/22/24 14:44 Rosuvastatin Calcium (Rosuvastatin Calcium 5 Mg Tab) 5 mg PO QAM LINO Stop: 03/20/24 11:59 Last Admin: 02/22/24 07:33 Dose: 5 mg Sodium Chloride (Sodium Chloride 0.65% Na Soln 45 Ml ([place])) 1 - 2 sprays NA PRN PRN PRN Reason: Nasal Dryness/Congestion Stop: 03/19/24 23:24 Mental Health & Subst Abuse Tx Wick Tender Name of Wick Tender: Batool Hoffman MH/ID Post Discharge Appointments Primary Care Physician Name Of Family Doctor/PCP: GALO
[2024-02-22] MEDS: haloperidoL 5 MG TAB PO SCH (21:35)
--- NOTE | 2024-02-23 09:24 | Psychiatric Progress Note ---
Date of Service February 23, 2024 Impression / Recommendations Impression 33 yo man with a history of schizophrenia and presents recurrence of psychosis in the context of medication nonadherence due to dry mouth side effects on a 302 commitment now voluntary. Diagnostically consistent with acute exacerbation of schizophrenia. A: Ongoing psychosis and continues to respond to internal stimuli. Tolerating haldol monotherapy so far, some increased reality-testing about voices but still some uncertainty so remains quite occupied by internal stimuli. MNPR due to his ongoing psychosis. Overall, I spent a total of 25 minutes with this case including review of chart records, nursing report, review of lab work, direct evaluation of the patient at bedside, counseling the patient, multidisciplinary team meeting, orders, and documentation in the electronic health record and speaking with his outpatient leather case finisher. (1) Schizophrenia: (2) Prediabetes: Plan 02/23/2024: Continue current medications and tx plan. 02/22/2024: Discontinue abilify. Start haldol 5mg BID. Continue Cogentin prn. 02/21/2024: Continue current medications and tx plan 02/20/2024: Increase Abilify to 15mg daily. 02/19/2024: The patient was admitted to the [facility] ([facility] unit) on q15 min checks (behavioral with suicide precautions) for safety. The patient will participate in group, recreational, and milieu therapies and will be offered additional individual and family sessions as clinically appropriate. Start Abilify 10 mg daily. Continue lorazepam 2 mg at bedtime. Start benztropine 1 mg twice daily as needed for EPS and dystonia. Start Colace 100 mg twice daily for constipation. Resume home Rosuvastatin 5mg daily. Inventory Assets Strengths: has outpatient resources, employed Needs: insurance, medication management Suicide Risk Level Suicide Risk Level: Moderate (q15 min suicide checks) (denies SI but with disorganized behavior and psychosis, feels safe in the hospital ) Risk Factors Assessment Male: Yes : No Do You Have Access To A Gun?: No Health Problems: Yes Mental Health Diagnoses: Yes Substance Use Disorders: No Previous Attempt: No Family History of Suicide: No Previous Psychiatric Hospitalization: Yes Hopelessness: No Protective Factors Assessment Christianity Beliefs: Yes : Yes Responsible for Young Children: No Employed: Yes ([employer]) Stable Relationships: No Supportive Family: No Good Rapport with Provider: Yes Absence of Any Risk Factors Above: No Interval History Identifying Information LEXII TEE is a 33-year-old man with a history of schizophrenia, alcohol use, anemia who presents in police custody for psychosis and inability to care for self. Collateral reveals he was off his medication for 1 week (Caplyta), endorsed hearing voices of God, and presented tangential thought process. He was admitted on 02/18/24 21:47 on a 302 involuntary commitment for psychosis and inability to care for self. Chief Complaint "I'm praying just in case it was God". Review of Systems Sleep Information Total Hours of Sleep: 7 Sleep Comments: HS Ativan and Haldol wtih PRN Haldol at 0543 Meal Information Percent Meal Consumed - Breakfast: 100 Percent Meal Consumed - Lunch: 100 Percent Meal Consumed - Dinner: 100 Subjective Subjective Patient was seen & assessed and interval progress reviewed with treatment team nursing and social work. Responding to internal stimuli. Received prn of haldol at about 5:30am. Not attending any groups. Tell me the voices are lessening but he is paying today "just in case" the voice he heard a few days ago was God as he doesn't want to be responsible for [place] attacking the [place]. Prefers the haldol denies any side effects and reports he did not have any nightmares last night. Physical Exam Psychiatric Orientation: alert and oriented x 3 Apperance: appropriately dressed and + disheveled Eye Contact: + fair eye contact Motor Behavior: no abnormal motor movements Speech: + abnormal rate/rhythm/volume of speech (stutter) Affect: + flat affect Mood: + anxious mood Thought Process: + thought blocking and + looseness of associations Thought Content: reality based without delusions Suicidal Thoughts: denies suicidal thoughts Homicidal Thoughts: denies homicidal thoughts Hallucinations: + auditory hallucinations (observed actively responding); no visual hallucinations Insight: + limited insight Judgment: + limited judgement Vital Signs (Past 24 Hours) Last Vital Signs Temp 36.4 C 02/23/24 06:00 Pulse 106 H 02/23/24 06:00 Resp 18 02/23/24 06:00 BP 125/86 02/23/24 06:00 Pulse Ox 97 02/22/24 06:52 O2 Del Method Room Air 02/22/24 06:52 Results & Data ([facility]) Current Inpatient Medications Current Inpatient Medications: Current Inpatient Medications Acetaminophen (Acetaminophen 325 Mg Tab) 650 mg PO Q4H PRN PRN Reason: Headache or Minor Fever Stop: 03/19/24 23:24 Al Hydrox/Mg Hydrox/Simethicone (Aluminum/Magnesium Susp 30 Ml Udc) 30 ml PO Q4H PRN PRN Reason: GI Upset Stop: 03/19/24 23:24 Benzonatate (Benzonatate 100 Mg Capsule) 100 mg PO BID PRN PRN Reason: Cough Stop: 03/21/24 15:25 Last Admin: 02/21/24 23:46 Dose: 100 mg Benztropine Mesylate (Benztropine Mesylate 1 Mg Tab) 1 mg PO BID PRN PRN Reason: EPS, dystonia Stop: 03/20/24 11:52 Docusate Sodium (Docusate Sodium 100 Mg Cap) 100 mg PO BID PRN PRN Reason: Constipation Stop: 03/20/24 11:59 Haloperidol (Haloperidol 5 Mg Tab) 5 mg PO Q8 PRN PRN Reason: Psychosis Stop: 03/19/24 23:28 Last Admin: 02/23/24 05:43 Dose: 5 mg Haloperidol (Haloperidol 5 Mg Tab) 5 mg PO BID LINO Stop: 03/23/24 20:59 Last Admin: 02/23/24 08:01 Dose: 5 mg Hydroxyzine HCl (Hydroxyzine Hcl 25 Mg Tab) 50 mg PO HSZ PRN PRN Reason: Insomnia Stop: 03/19/24 23:24 Hydroxyzine HCl (Hydroxyzine Hcl 25 Mg Tab) 50 mg PO Q4H PRN PRN Reason: Anxiety Stop: 03/19/24 23:24 Lorazepam (Lorazepam 1 Mg Tab) 2 mg PO HS LINO Stop: 03/19/24 23:29 Last Admin: 02/22/24 21:36 Dose: 2 mg Lorazepam (Lorazepam 1 Mg Tab) 1 mg PO BID PRN PRN Reason: Agitation Stop: 03/22/24 15:05 Magnesium Hydroxide (Magnesium Hydroxide Susp 30 Ml Udc) 30 ml PO DAILY PRN PRN Reason: Constipation Stop: 03/19/24 23:24 Menthol (Cough Drop (Sugar Free) Yaneli 24 Yaneli/1 Box) 1 yaneli BUCCAL Q2H PRN PRN Reason: Cough Stop: 03/20/24 20:55 Last Admin: 02/19/24 21:05 Dose: 1 yaneli Ondansetron HCl (Ondansetron 4 Mg Od Tab) 4 mg PO BID PRN PRN Reason: Nausea Stop: 03/22/24 14:44 Rosuvastatin Calcium (Rosuvastatin Calcium 5 Mg Tab) 5 mg PO QAM LINO Stop: 03/20/24 11:59 Last Admin: 02/23/24 08:01 Dose: 5 mg Sodium Chloride (Sodium Chloride 0.65% Na Soln 45 Ml ([place])) 1 - 2 sprays NA PRN PRN PRN Reason: Nasal Dryness/Congestion Stop: 03/19/24 23:24 Mental Health & Subst Abuse Tx Health And Safety Coordinator Name of Health And Safety Coordinator: Batool Hoffman MH/ID Post Discharge Appointments Primary Care Physician Name Of Family Doctor/PCP: GALO
--- NOTE | 2024-02-24 09:20 | Psychiatric Progress Note ---
Date of Service February 24, 2024 Impression / Recommendations Impression 33 yo man with a history of schizophrenia and presents recurrence of psychosis in the context of medication nonadherence due to dry mouth side effects on a 302 commitment now voluntary. Diagnostically consistent with acute exacerbation of schizophrenia. A: Ongoing psychosis, seems to be responding to more internal stimuli after discontinuation of abilify. He consents to restarting abilify, re-reviewed side effects. He also consents to starting metformin for off-label use of antipsychotic-induced weight gain and for pre-diabetes, reviewed side effects including but not limited to GI symptoms. MNPR due to his ongoing psychosis. Overall, I spent a total of 35 minutes with this case including review of chart records, nursing report, review of lab work, direct evaluation of the patient at bedside, counseling the patient, multidisciplinary team meeting, orders, and documentation in the electronic health record and speaking with his outpatient case management specialist. (1) Schizophrenia: (2) Prediabetes: Plan 02/24/2024: Restart abilify 15mg qd. Start metformin ER 500mg qdinner. 02/23/2024: Continue current medications and tx plan. 02/22/2024: Discontinue abilify. Start haldol 5mg BID. Continue Cogentin prn. 02/21/2024: Continue current medications and tx plan 02/20/2024: Increase Abilify to 15mg daily. 02/19/2024: The patient was admitted to the [facility] ([facility] health unit) on q15 min checks (behavioral with suicide precautions) for safety. The patient will participate in group, recreational, and milieu therapies and will be offered additional individual and family sessions as clinically appropriate. Start Abilify 10 mg daily. Continue lorazepam 2 mg at bedtime. Start benztropine 1 mg twice daily as needed for EPS and dystonia. Start Colace 100 mg twice daily for constipation. Resume home Rosuvastatin 5mg daily. Inventory Assets Strengths: has outpatient resources, employed Needs: insurance, medication management Suicide Risk Level Suicide Risk Level: Moderate (q15 min suicide checks) (denies SI but with disorganized behavior and psychosis, feels safe in the hospital ) Risk Factors Assessment Male: Yes : No Do You Have Access To A Gun?: No Health Problems: Yes Mental Health Diagnoses: Yes Substance Use Disorders: No Previous Attempt: No Family History of Suicide: No Previous Psychiatric Hospitalization: Yes Hopelessness: No Protective Factors Assessment Adventism Beliefs: Yes : Yes Responsible for Young Children: No Employed: Yes ([employer]) Stable Relationships: No Supportive Family: No Good Rapport with Provider: Yes Absence of Any Risk Factors Above: No Interval History Identifying Information LEXII TEE is a 33-year-old man with a history of schizophrenia, alcohol use, anemia who presents in police custody for psychosis and inability to care for self. Collateral reveals he was off his medication for 1 week (Caplyta), endorsed hearing voices of God, and presented tangential thought process. He was admitted on 02/18/24 21:47 on a 302 involuntary commitment for psychosis and inability to care for self. Chief Complaint "I'm fine thank you". Review of Systems Sleep Information Total Hours of Sleep: 8 Sleep Comments: Meal Information Percent Meal Consumed - Breakfast: 100 Percent Meal Consumed - Lunch: 100 Percent Meal Consumed - Dinner: 100 Subjective Subjective Patient was seen & assessed and interval progress reviewed with treatment team nursing and social work. Responding to internal stimuli, pacing. Continues to pray "just in case". Would like to have his fingernails trimmed. Agreeable to restarting abilify. Agreeable to starting metformin to help reduce appetite/antipsychotic-induced weight gain. He recalls being on this before. Physical Exam Psychiatric Orientation: alert and oriented x 3 Apperance: appropriately dressed and + disheveled Eye Contact: + fair eye contact Motor Behavior: no abnormal motor movements Speech: + abnormal rate/rhythm/volume of speech (stutter) Affect: + flat affect Mood: + anxious mood Thought Process: + thought blocking and + looseness of associations Thought Content: reality based without delusions Suicidal Thoughts: denies suicidal thoughts Homicidal Thoughts: denies homicidal thoughts Hallucinations: + auditory hallucinations (observed actively responding); no visual hallucinations Insight: + limited insight Judgment: + limited judgement Vital Signs (Past 24 Hours) Last Vital Signs Temp 35.9 C L 02/24/24 06:00 Pulse 93 H 02/24/24 06:00 Resp 16 02/24/24 06:00 BP 126/83 02/24/24 06:00 Pulse Ox 97 02/22/24 06:52 O2 Del Method Room Air 02/22/24 06:52 Results & Data ([facility]) Current Inpatient Medications Current Inpatient Medications: Current Inpatient Medications Acetaminophen (Acetaminophen 325 Mg Tab) 650 mg PO Q4H PRN PRN Reason: Headache or Minor Fever Stop: 03/19/24 23:24 Al Hydrox/Mg Hydrox/Simethicone (Aluminum/Magnesium Susp 30 Ml Udc) 30 ml PO Q4H PRN PRN Reason: GI Upset Stop: 03/19/24 23:24 Benzonatate (Benzonatate 100 Mg Capsule) 100 mg PO BID PRN PRN Reason: Cough Stop: 03/21/24 15:25 Last Admin: 02/21/24 23:46 Dose: 100 mg Benztropine Mesylate (Benztropine Mesylate 1 Mg Tab) 1 mg PO BID PRN PRN Reason: EPS, dystonia Stop: 03/20/24 11:52 Docusate Sodium (Docusate Sodium 100 Mg Cap) 100 mg PO BID PRN PRN Reason: Constipation Stop: 03/20/24 11:59 Haloperidol (Haloperidol 5 Mg Tab) 5 mg PO Q8 PRN PRN Reason: Psychosis Stop: 03/19/24 23:28 Last Admin: 02/23/24 05:43 Dose: 5 mg Haloperidol (Haloperidol 5 Mg Tab) 5 mg PO BID LINO Stop: 03/23/24 20:59 Last Admin: 02/24/24 07:33 Dose: 5 mg Hydroxyzine HCl (Hydroxyzine Hcl 25 Mg Tab) 50 mg PO HSZ PRN PRN Reason: Insomnia Stop: 03/19/24 23:24 Hydroxyzine HCl (Hydroxyzine Hcl 25 Mg Tab) 50 mg PO Q4H PRN PRN Reason: Anxiety Stop: 03/19/24 23:24 Lorazepam (Lorazepam 1 Mg Tab) 2 mg PO HS LINO Stop: 03/19/24 23:29 Last Admin: 02/23/24 21:25 Dose: 2 mg Lorazepam (Lorazepam 1 Mg Tab) 1 mg PO BID PRN PRN Reason: Agitation Stop: 03/22/24 15:05 Magnesium Hydroxide (Magnesium Hydroxide Susp 30 Ml Udc) 30 ml PO DAILY PRN PRN Reason: Constipation Stop: 03/19/24 23:24 Menthol (Cough Drop (Sugar Free) Yaneli 24 Yaneli/1 Box) 1 yaneli BUCCAL Q2H PRN PRN Reason: Cough Stop: 03/20/24 20:55 Last Admin: 02/19/24 21:05 Dose: 1 yaneli Ondansetron HCl (Ondansetron 4 Mg Od Tab) 4 mg PO BID PRN PRN Reason: Nausea Stop: 03/22/24 14:44 Rosuvastatin Calcium (Rosuvastatin Calcium 5 Mg Tab) 5 mg PO QAM LINO Stop: 03/20/24 11:59 Last Admin: 02/24/24 07:33 Dose: 5 mg Sodium Chloride (Sodium Chloride 0.65% Na Soln 45 Ml ([place])) 1 - 2 sprays NA PRN PRN PRN Reason: Nasal Dryness/Congestion Stop: 03/19/24 23:24 Mental Health & Subst Abuse Tx Care Worker Name of Care Worker: Batool Hoffman MH/ID Post Discharge Appointments Primary Care Physician Name Of Family Doctor/PCP: GALO
[2024-02-24] MEDS: ARIPiprazole 15 MG TAB PO SCH (10:05)
[2024-02-24] MEDS: metFORMIN HCL ER 500 MG TABCR PO SCH (21:28)
--- NOTE | 2024-02-25 08:44 | Psychiatric Progress Note ---
Date of Service February 25, 2024 Impression / Recommendations Impression 33 yo man with a history of schizophrenia and presents recurrence of psychosis in the context of medication nonadherence due to dry mouth side effects on a 302 commitment now voluntary. Diagnostically consistent with acute exacerbation of schizophrenia. A: Ongoing psychosis, possibly slightly lessened today in intensity per his subjective report. Tolerating medications. MNPR due to his ongoing psychosis. Overall, I spent a total of 25 minutes with this case including review of chart records, nursing report, review of lab work, direct evaluation of the patient at bedside, counseling the patient, multidisciplinary team meeting, orders, and documentation in the electronic health record and speaking with his outpatient rn case manager hospice. (1) Schizophrenia: (2) Prediabetes: Plan 02/25/2024: Continue current medications and tx plan. 02/24/2024: Restart abilify 15mg qd. Start metformin ER 500mg qdinner. 02/23/2024: Continue current medications and tx plan. 02/22/2024: Discontinue abilify. Start haldol 5mg BID. Continue Cogentin prn. 02/21/2024: Continue current medications and tx plan 02/20/2024: Increase Abilify to 15mg daily. 02/19/2024: The patient was admitted to the [facility] ([facility] mental health unit) on q15 min checks (behavioral with suicide precautions) for safety. The patient will participate in group, recreational, and milieu therapies and will be offered additional individual and family sessions as clinically appropriate. Start Abilify 10 mg daily. Continue lorazepam 2 mg at bedtime. Start benztropine 1 mg twice daily as needed for EPS and dystonia. Start Colace 100 mg twice daily for constipation. Resume home Rosuvastatin 5mg daily. Inventory Assets Strengths: has outpatient resources, employed Needs: insurance, medication management Suicide Risk Level Suicide Risk Level: Moderate (q15 min suicide checks) (denies SI but with disorganized behavior and psychosis, feels safe in the hospital ) Risk Factors Assessment Male: Yes : No Do You Have Access To A Gun?: No Health Problems: Yes Mental Health Diagnoses: Yes Substance Use Disorders: No Previous Attempt: No Family History of Suicide: No Previous Psychiatric Hospitalization: Yes Hopelessness: No Protective Factors Assessment Sikhism Beliefs: Yes : Yes Responsible for Young Children: No Employed: Yes ([employer]) Stable Relationships: No Supportive Family: No Good Rapport with Provider: Yes Absence of Any Risk Factors Above: No Interval History Identifying Information LEXII TEE is a 33-year-old man with a history of schizophrenia, alcohol use, anemia who presents in police custody for psychosis and inability to care for self. Collateral reveals he was off his medication for 1 week (Caplyta), endorsed hearing voices of God, and presented tangential thought process. He was admitted on 02/18/24 21:47 on a 302 involuntary commitment for psychosis and inability to care for self. Chief Complaint "I'm fine". Review of Systems Sleep Information Total Hours of Sleep: 8 Meal Information Percent Meal Consumed - Breakfast: 100 Percent Meal Consumed - Lunch: 100 Percent Meal Consumed - Dinner: 50 Subjective Subjective Patient was seen & assessed and interval progress reviewed with treatment team nursing and social work. Responding to internal stimuli and walking in the halls or often alone in his room. Feels that today "praying not as much, not /". Liked the metformin feels his appetite is reduced today. Denies any medication side effects. Physical Exam Psychiatric Orientation: alert and oriented x 3 Apperance: appropriately dressed and + disheveled Eye Contact: + fair eye contact Motor Behavior: no abnormal motor movements Speech: + abnormal rate/rhythm/volume of speech (stutter) Affect: + flat affect Mood: + anxious mood Thought Process: + thought blocking and + looseness of associations Thought Content: reality based without delusions Suicidal Thoughts: denies suicidal thoughts Homicidal Thoughts: denies homicidal thoughts Hallucinations: + auditory hallucinations (observed actively responding); no visual hallucinations Insight: + limited insight Judgment: + limited judgement Vital Signs (Past 24 Hours) Last Vital Signs Temp 35.8 C L 02/25/24 06:00 Pulse 83 02/25/24 06:00 Resp 16 02/25/24 06:00 BP 121/77 02/25/24 06:00 Pulse Ox 97 02/22/24 06:52 O2 Del Method Room Air 02/22/24 06:52 Results & Data ([facility]) Current Inpatient Medications Current Inpatient Medications: Current Inpatient Medications Acetaminophen (Acetaminophen 325 Mg Tab) 650 mg PO Q4H PRN PRN Reason: Headache or Minor Fever Stop: 03/19/24 23:24 Al Hydrox/Mg Hydrox/Simethicone (Aluminum/Magnesium Susp 30 Ml Udc) 30 ml PO Q4H PRN PRN Reason: GI Upset Stop: 03/19/24 23:24 Aripiprazole (Aripiprazole 15 Mg Tab) 15 mg PO QAM LINO Stop: 03/25/24 09:29 Last Admin: 02/24/24 10:05 Dose: 15 mg Benzonatate (Benzonatate 100 Mg Capsule) 100 mg PO BID PRN PRN Reason: Cough Stop: 03/21/24 15:25 Last Admin: 02/21/24 23:46 Dose: 100 mg Benztropine Mesylate (Benztropine Mesylate 1 Mg Tab) 1 mg PO BID PRN PRN Reason: EPS, dystonia Stop: 03/20/24 11:52 Docusate Sodium (Docusate Sodium 100 Mg Cap) 100 mg PO BID PRN PRN Reason: Constipation Stop: 03/20/24 11:59 Haloperidol (Haloperidol 5 Mg Tab) 5 mg PO Q8 PRN PRN Reason: Psychosis Stop: 03/19/24 23:28 Last Admin: 02/23/24 05:43 Dose: 5 mg Haloperidol (Haloperidol 5 Mg Tab) 5 mg PO BID LINO Stop: 03/23/24 20:59 Last Admin: 02/24/24 21:28 Dose: 5 mg Hydroxyzine HCl (Hydroxyzine Hcl 25 Mg Tab) 50 mg PO HSZ PRN PRN Reason: Insomnia Stop: 03/19/24 23:24 Hydroxyzine HCl (Hydroxyzine Hcl 25 Mg Tab) 50 mg PO Q4H PRN PRN Reason: Anxiety Stop: 03/19/24 23:24 Lorazepam (Lorazepam 1 Mg Tab) 2 mg PO HS LINO Stop: 03/19/24 23:29 Last Admin: 02/24/24 21:28 Dose: 2 mg Lorazepam (Lorazepam 1 Mg Tab) 1 mg PO BID PRN PRN Reason: Agitation Stop: 03/22/24 15:05 Magnesium Hydroxide (Magnesium Hydroxide Susp 30 Ml Udc) 30 ml PO DAILY PRN PRN Reason: Constipation Stop: 03/19/24 23:24 Menthol (Cough Drop (Sugar Free) Yaneli 24 Yaneli/1 Box) 1 yaneli BUCCAL Q2H PRN PRN Reason: Cough Stop: 03/20/24 20:55 Last Admin: 02/25/24 06:26 Dose: 1 yaneli Metformin HCl (Metformin Hcl Er 500 Mg Tabcr) 500 mg PO PM LINO Stop: 03/25/24 20:59 Last Admin: 02/24/24 21:28 Dose: 500 mg Ondansetron HCl (Ondansetron 4 Mg Od Tab) 4 mg PO BID PRN PRN Reason: Nausea Stop: 03/22/24 14:44 Rosuvastatin Calcium (Rosuvastatin Calcium 5 Mg Tab) 5 mg PO QAM LINO Stop: 03/20/24 11:59 Last Admin: 02/24/24 07:33 Dose: 5 mg Sodium Chloride (Sodium Chloride 0.65% Na Soln 45 Ml ([place])) 1 - 2 sprays NA PRN PRN PRN Reason: Nasal Dryness/Congestion Stop: 03/19/24 23:24 Mental Health & Subst Abuse Tx Cardiac Rehabilitation Specialist Name of Cardiac Rehabilitation Specialist: Batool Levy Co MH/ID Post Discharge Appointments Primary Care Physician Name Of Family Doctor/PCP: GALO
[2024-02-26] MEDS: ACETAMINOPHEN 325 MG TAB PO PRN (07:44)
--- NOTE | 2024-02-26 09:07 | Psychiatric Progress Note ---
Date of Service February 26, 2024 Impression / Recommendations Impression 33 yo man with a history of schizophrenia and presents recurrence of psychosis in the context of medication nonadherence due to dry mouth side effects on a 302 commitment now voluntary. Diagnostically consistent with acute exacerbation of schizophrenia. A: Ongoing psychosis but responding less to internal stimuli with some reduction in thought blocking. He's tolerating haldol and abilify without any side effects . He would like to get haldol decanoate and consents to this as he was on this previously and did well. Reviewed risks, benefits and alternatives. Reviewed side effects including but not limited to: movement (TD, NMS), cardiac (QTc prolongation), and metabolic (stroke, insulin resistance) and necessity for fasting lipid and glucose labwork (completed already) and AIMS done with score of 0. He understands recommendation is for oral overlap until he reaches steady- state doses in 2-3 months. Ideally may then be able to taper abilify so he is on haldol monotherapy. MNPR due to his ongoing psychosis. Overall, I spent a total of 35 minutes with this case including review of chart records, nursing report, review of lab work, direct evaluation of the patient at bedside, counseling the patient, multidisciplinary team meeting, orders, and documentation in the electronic health record and speaking with his outpatient cyanide case hardener. (1) Schizophrenia: (2) Prediabetes: Plan 02/26/2024: Continue haldol and abilify po. Haldol decanoate 100mg CONDE tomorrow. Continue with oral overlap for 2-3 months or for one week if he'll be getting additional loading dose (either haldol decanoate CONDE 100mg again for week 2,3 and 4 and then CONDE 200mg qmonthly) 02/25/2024: Continue current medications and tx plan. 02/24/2024: Restart abilify 15mg qd. Start metformin ER 500mg qdinner. 02/23/2024: Continue current medications and tx plan. 02/22/2024: Discontinue abilify. Start haldol 5mg BID. Continue Cogentin prn. 02/21/2024: Continue current medications and tx plan 02/20/2024: Increase Abilify to 15mg daily. 02/19/2024: The patient was admitted to the [facility]) on q15 min checks (behavioral with suicide precautions) for safety. The patient will participate in group, recreational, and milieu therapies and will be offered additional individual and family sessions as clinically appropriate. Start Abilify 10 mg daily. Continue lorazepam 2 mg at bedtime. Start benztropine 1 mg twice daily as needed for EPS and dystonia. Start Colace 100 mg twice daily for constipation. Resume home Rosuvastatin 5mg daily. Inventory Assets Strengths: has outpatient resources, employed Needs: insurance, medication management Suicide Risk Level Suicide Risk Level: Moderate (q15 min suicide checks) (denies SI but with disorganized behavior and psychosis, feels safe in the hospital ) Risk Factors Assessment Male: Yes : No Do You Have Access To A Gun?: No Health Problems: Yes Mental Health Diagnoses: Yes Substance Use Disorders: No Previous Attempt: No Family History of Suicide: No Previous Psychiatric Hospitalization: Yes Hopelessness: No Protective Factors Assessment [employer] Beliefs: Yes : Yes Responsible for Young Children: No Employed: Yes ([employer]) Stable Relationships: No Supportive Family: No Good Rapport with Provider: Yes Absence of Any Risk Factors Above: No Interval History Identifying Information LEXII TEE is a 33-year-old man with a history of schizophrenia, alcohol use, anemia who presents in police custody for psychosis and inability to care for self. Collateral reveals he was off his medication for 1 week (Caplyta), endorsed hearing voices of God, and presented tangential thought process. He was admitted on 02/18/24 21:47 on a 302 involuntary commitment for psychosis and inability to care for self. Chief Complaint "Fine". Review of Systems Sleep Information Total Hours of Sleep: 5.15 Meal Information Percent Meal Consumed - Breakfast: 100 Percent Meal Consumed - Lunch: 90 Percent Meal Consumed - Dinner: 100 Subjective Subjective Patient was seen & assessed and interval progress reviewed with treatment team nursing and social work. Still responding, pleasant. Had a fall at 5:45am which he felt was due to his "bad knee". Attended community meeting last evening. Has some wrist pain from fall, no swelling, he's able to move it and pain responded to prn acetaminophen. He wonders about having ibuprofen too. He agreed to alert RNs if swelling occurs or any new symptoms or worsening of pain. Feels he is doing much better on the haldol and abilify combination than Caplyta. Asks to not go back on Caplyta and prefers haldol and abilify. Denies any side effects. Brings up event that upset him at [facility] prior to admission and appropriately asks for my advice about how to deal with an intrusive peer at the [facility] in the future. He continues to deny any EPS or other haldol side effects and has previously been on the CONDE. He would like to get this tomorrow. Physical Exam Psychiatric Orientation: alert and oriented x 3 Apperance: appropriately dressed and appropriately groomed Eye Contact: + fair eye contact Motor Behavior: no abnormal motor movements Speech: + abnormal rate/rhythm/volume of speech (stutter) Affect: + flat affect Mood: + anxious mood Thought Process: + thought blocking and + concrete thought process Thought Content: reality based without delusions Suicidal Thoughts: denies suicidal thoughts Homicidal Thoughts: denies homicidal thoughts Hallucinations: + auditory hallucinations (observed actively responding at times); no visual hallucinations Insight: + limited insight Judgment: + limited judgement Vital Signs (Past 24 Hours) Last Vital Signs Temp 36.6 C 02/26/24 06:41 Pulse 76 02/26/24 06:41 Resp 18 02/26/24 06:41 BP 116/79 02/26/24 06:41 Pulse Ox 97 02/22/24 06:52 O2 Del Method Room Air 02/22/24 06:52 Results & Data ([facility]) Current Inpatient Medications Current Inpatient Medications: Current Inpatient Medications Acetaminophen (Acetaminophen 325 Mg Tab) 650 mg PO Q4H PRN PRN Reason: Headache or Minor Fever Stop: 03/19/24 23:24 Last Admin: 02/26/24 07:44 Dose: 650 mg Al Hydrox/Mg Hydrox/Simethicone (Aluminum/Magnesium Susp 30 Ml Udc) 30 ml PO Q4H PRN PRN Reason: GI Upset Stop: 03/19/24 23:24 Aripiprazole (Aripiprazole 15 Mg Tab) 15 mg PO QAM LINO Stop: 03/25/24 09:29 Last Admin: 02/26/24 07:43 Dose: 15 mg Benzonatate (Benzonatate 100 Mg Capsule) 100 mg PO BID PRN PRN Reason: Cough Stop: 03/21/24 15:25 Last Admin: 02/21/24 23:46 Dose: 100 mg Benztropine Mesylate (Benztropine Mesylate 1 Mg Tab) 1 mg PO BID PRN PRN Reason: EPS, dystonia Stop: 03/20/24 11:52 Docusate Sodium (Docusate Sodium 100 Mg Cap) 100 mg PO BID PRN PRN Reason: Constipation Stop: 03/20/24 11:59 Haloperidol (Haloperidol 5 Mg Tab) 5 mg PO Q8 PRN PRN Reason: Psychosis Stop: 03/19/24 23:28 Last Admin: 02/23/24 05:43 Dose: 5 mg Haloperidol (Haloperidol 5 Mg Tab) 5 mg PO BID LINO Stop: 03/23/24 20:59 Last Admin: 02/26/24 07:43 Dose: 5 mg Hydroxyzine HCl (Hydroxyzine Hcl 25 Mg Tab) 50 mg PO HSZ PRN PRN Reason: Insomnia Stop: 03/19/24 23:24 Hydroxyzine HCl (Hydroxyzine Hcl 25 Mg Tab) 50 mg PO Q4H PRN PRN Reason: Anxiety Stop: 03/19/24 23:24 Lorazepam (Lorazepam 1 Mg Tab) 2 mg PO HS LINO Stop: 03/19/24 23:29 Last Admin: 02/25/24 21:18 Dose: 2 mg Lorazepam (Lorazepam 1 Mg Tab) 1 mg PO BID PRN PRN Reason: Agitation Stop: 03/22/24 15:05 Magnesium Hydroxide (Magnesium Hydroxide Susp 30 Ml Udc) 30 ml PO DAILY PRN PRN Reason: Constipation Stop: 03/19/24 23:24 Menthol (Cough Drop (Sugar Free) Yaneli 24 Yaneli/1 Box) 1 yaneli BUCCAL Q2H PRN PRN Reason: Cough Stop: 03/20/24 20:55 Last Admin: 02/25/24 06:26 Dose: 1 yaneli Metformin HCl (Metformin Hcl Er 500 Mg Tabcr) 500 mg PO PM LINO Stop: 03/25/24 20:59 Last Admin: 02/25/24 21:18 Dose: 500 mg Ondansetron HCl (Ondansetron 4 Mg Od Tab) 4 mg PO BID PRN PRN Reason: Nausea Stop: 03/22/24 14:44 Rosuvastatin Calcium (Rosuvastatin Calcium 5 Mg Tab) 5 mg PO QAM LINO Stop: 03/20/24 11:59 Last Admin: 02/26/24 07:44 Dose: 5 mg Sodium Chloride (Sodium Chloride 0.65% Na Soln 45 Ml ([place])) 1 - 2 sprays NA PRN PRN PRN Reason: Nasal Dryness/Congestion Stop: 03/19/24 23:24 Mental Health & Subst Abuse Tx Lens Grinder Name of Lens Grinder: Batool Levy Co MH/ID Post Discharge Appointments Primary Care Physician Name Of Family Doctor/PCP: GALO
[2024-02-27] MEDS: HALOPERIDOL DECANOATE INJ 50 MG/ML VIAL IM ONE (08:59)
[2024-02-27] MEDS ORDERED: IBUPROFEN 200 MG TAB PO PRN (11:34)
--- NOTE | 2024-02-27 14:49 | Psychiatric Progress Note ---
Date of Service February 27, 2024 Impression / Recommendations Impression 33 yo man with a history of schizophrenia and presents recurrence of psychosis in the context of medication nonadherence due to dry mouth side effects on a 302 commitment now voluntary. Diagnostically consistent with acute exacerbation of schizophrenia. A: Patient is tolerating Haldol decanoate long-acting injectable. Thought process and speech improving. Not seen responding to internal stimuli during the interview. Wrists pain and movement stable; patient declines further intervention and x-ray. Patient is future oriented and presents intact reality testing. MNPR due to his ongoing psychosis. Overall, I spent a total of 45 minutes with this case including review of chart records, nursing report, review of lab work, direct evaluation of the patient at bedside, counseling the patient, orders, and documentation in the electronic health record and speaking with his outpatient case filler. (1) Schizophrenia: (2) Prediabetes: Plan 02/27/2024: Decrease lorazepam to 1.5 mg nightly. Ibuprofen 400 mg every 6 hours as needed for wrist pain. Continue other medications and treatment plan. 02/26/2024: Continue haldol and abilify po. Haldol decanoate 100mg CONDE tomorrow. Continue with oral overlap for 2-3 months or for one week if he'll be getting additional loading dose (either haldol decanoate CONDE 100mg again for week 2,3 and 4 and then CONDE 200mg qmonthly) 02/25/2024: Continue current medications and tx plan. 02/24/2024: Restart abilify 15mg qd. Start metformin ER 500mg qdinner. 02/23/2024: Continue current medications and tx plan. 02/22/2024: Discontinue abilify. Start haldol 5mg BID. Continue Cogentin prn. 02/21/2024: Continue current medications and tx plan 02/20/2024: Increase Abilify to 15mg daily. 02/19/2024: The patient was admitted to the [facility] ([facility] mental health unit) on q15 min checks (behavioral with suicide precautions) for safety. The patient will participate in group, recreational, and milieu therapies and will be offered additional individual and family sessions as clinically appropriate. Start Abilify 10 mg daily. Continue lorazepam 2 mg at bedtime. Start benztropine 1 mg twice daily as needed for EPS and dystonia. Start Colace 100 mg twice daily for constipation. Resume home Rosuvastatin 5mg daily. Inventory Assets Strengths: has outpatient resources, employed Needs: insurance, medication management Suicide Risk Level Suicide Risk Level: Moderate (q15 min suicide checks) (denies SI but with disorganized behavior and psychosis, feels safe in the hospital ) Risk Factors Assessment Male: Yes : No Do You Have Access To A Gun?: No Health Problems: Yes Mental Health Diagnoses: Yes Substance Use Disorders: No Previous Attempt: No Family History of Suicide: No Previous Psychiatric Hospitalization: Yes Hopelessness: No Protective Factors Assessment Yazdanism Beliefs: Yes : Yes Responsible for Young Children: No Employed: Yes ([employer]) Stable Relationships: No Supportive Family: No Good Rapport with Provider: Yes Absence of Any Risk Factors Above: No Interval History Identifying Information LEXII TEE is a 33-year-old man with a history of schizophrenia, alcohol use, anemia who presents in police custody for psychosis and inability to care for self. Collateral reveals he was off his medication for 1 week (Caplyta), endorsed hearing voices of God, and presented tangential thought process. He was admitted on 02/18/24 21:47 on a 302 involuntary commitment for psychosis and inability to care for self. Converted to 201 voluntary commitment. Chief Complaint "[]". Review of Systems Sleep Information Total Hours of Sleep: 6.5 Meal Information Percent Meal Consumed - Breakfast: 100 Percent Meal Consumed - Lunch: 100 Percent Meal Consumed - Dinner: 100 Subjective Subjective Patient was seen & assessed and interval progress reviewed with nursing and social work Overnight no acute events. Patient seen in room. He presents with some thought blocking with repetitive and delayed speech. He clarifies initial symptoms and denies hearing voices. He reports having a feeling of praying to God for the people of [facility]. He reports not believing in God as a figure so this thought was distressing to him and says this is when his schizophrenia is getting worse. When discussing medications reports that Haldol has worked better than Caplyta and was continued on completed a because of recommendations of the outpatient psychiatrist. Complains of dry mouth on complete a. Reports that when on Haldol his thoughts are clear and he can speak more freely. He denies current auditory visual hallucinations, suicidal ideation, homicidal ideation. Reports sleeping well. Reports having a recent fall because he had a past right patellar dislocation and his knee gave out and he caught himself with his wrist. Complains that a 6 out of 10 pain on his wrist; no visible inflammation; good range of motion and strength. He declines x-rays for his wrist. He denies past periods of lack of sleep with increased energy and behavior. He declines past periods of low mood, anhedonia, excess guilt, sleep dysfunction, appetite dysfunction. Unclear why he was given past schizoaffective diagnosis. He tolerating Haldol decanoate injection. Denies side effects from Haldol; denies dystonia/EPS. 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 Physical Exam Mental Examination Appearance: Unkempt and Disheveled Eye Contact: Maintains Eye Contact Motor Behavior: Restless Speech: Slurred, Repetitive and Delayed Mood: Euthymic Affect: Congruent and Constricted Thought Process: Disorganized Thought Content: Thought Blocking Hallucinations: None (denies AVH) Insight: Poor (to limited) Judgement: Fair Vital Signs (Past 24 Hours) Last Vital Signs Temp 37 C 02/27/24 06:35 Pulse 90 02/27/24 06:35 Resp 18 02/27/24 06:35 BP 119/74 02/27/24 06:35 Pulse Ox 97 02/22/24 06:52 O2 Del Method Room Air 02/22/24 06:52 Results & Data ([facility]) Current Inpatient Medications Current Inpatient Medications: Current Inpatient Medications Acetaminophen (Acetaminophen 325 Mg Tab) 650 mg PO Q4H PRN PRN Reason: Headache or Minor Fever Stop: 03/19/24 23:24 Last Admin: 02/26/24 20:40 Dose: 650 mg Al Hydrox/Mg Hydrox/Simethicone (Aluminum/Magnesium Susp 30 Ml Udc) 30 ml PO Q4H PRN PRN Reason: GI Upset Stop: 03/19/24 23:24 Aripiprazole (Aripiprazole 15 Mg Tab) 15 mg PO QAM LINO Stop: 03/25/24 09:29 Last Admin: 02/27/24 08:46 Dose: 15 mg Benzonatate (Benzonatate 100 Mg Capsule) 100 mg PO BID PRN PRN Reason: Cough Stop: 03/21/24 15:25 Last Admin: 02/21/24 23:46 Dose: 100 mg Benztropine Mesylate (Benztropine Mesylate 1 Mg Tab) 1 mg PO BID PRN PRN Reason: EPS, dystonia Stop: 03/20/24 11:52 Docusate Sodium (Docusate Sodium 100 Mg Cap) 100 mg PO BID PRN PRN Reason: Constipation Stop: 03/20/24 11:59 Haloperidol (Haloperidol 5 Mg Tab) 5 mg PO Q8 PRN PRN Reason: Psychosis Stop: 03/19/24 23:28 Last Admin: 02/23/24 05:43 Dose: 5 mg Haloperidol (Haloperidol 5 Mg Tab) 5 mg PO BID LINO Stop: 03/23/24 20:59 Last Admin: 02/27/24 08:46 Dose: 5 mg Hydroxyzine HCl (Hydroxyzine Hcl 25 Mg Tab) 50 mg PO HSZ PRN PRN Reason: Insomnia Stop: 03/19/24 23:24 Hydroxyzine HCl (Hydroxyzine Hcl 25 Mg Tab) 50 mg PO Q4H PRN PRN Reason: Anxiety Stop: 03/19/24 23:24 Ibuprofen (Ibuprofen 200 Mg Tab) 400 mg PO Q6H PRN PRN Reason: Pain, Inflammation Stop: 03/28/24 11:33 Lorazepam (Lorazepam 1 Mg Tab) 1 mg PO BID PRN PRN Reason: Agitation Stop: 03/22/24 15:05 Lorazepam (Lorazepam 0.5 Mg Tab) 1.5 mg PO HS LINO Stop: 03/28/24 21:59 Magnesium Hydroxide (Magnesium Hydroxide Susp 30 Ml Udc) 30 ml PO DAILY PRN PRN Reason: Constipation Stop: 03/19/24 23:24 Menthol (Cough Drop (Sugar Free) Yaneli 24 Yaneli/1 Box) 1 yaneli BUCCAL Q2H PRN PRN Reason: Cough Stop: 03/20/24 20:55 Last Admin: 02/25/24 06:26 Dose: 1 yaneli Metformin HCl (Metformin Hcl Er 500 Mg Tabcr) 500 mg PO PM LINO Stop: 03/25/24 20:59 Last Admin: 02/26/24 21:11 Dose: 500 mg Ondansetron HCl (Ondansetron 4 Mg Od Tab) 4 mg PO BID PRN PRN Reason: Nausea Stop: 03/22/24 14:44 Rosuvastatin Calcium (Rosuvastatin Calcium 5 Mg Tab) 5 mg PO QAM LINO Stop: 03/20/24 11:59 Last Admin: 02/27/24 08:46 Dose: 5 mg Sodium Chloride (Sodium Chloride 0.65% Na Soln 45 Ml ([place])) 1 - 2 sprays NA PRN PRN PRN Reason: Nasal Dryness/Congestion Stop: 03/19/24 23:24 Mental Health & Subst Abuse Tx Psychiatrist Name of Psychiatrist: LIOR Psychiatrist's Date Of Appointment With Psychiatric Provider: 03-02-24 Time of Appointment with Psychiatrist: 10:30 Basic Sciences Professor Name of Basic Sciences Professor: Batool Hoffman MH/ID Post Discharge Appointments Primary Care Physician Name Of Family Doctor/PCP: CHRISTIN
[2024-02-27] MEDS: LORazepam 0.5 MG TAB PO SCH (21:08)
--- NOTE | 2024-02-28 13:22 | Psychiatric Progress Note ---
Date of Service February 28, 2024 Impression / Recommendations Impression 33 yo man with a history of schizophrenia and presents recurrence of psychosis in the context of medication nonadherence due to dry mouth side effects on a 302 commitment now voluntary. Diagnostically consistent with acute exacerbation of schizophrenia. A: Patient is able to formulate clear logical thoughts. Continues to have some thought blocking, repetitive speech, speech delay. He presents strongly held values about God and conflicts with family members. Will contact manager case to establish baseline. He is tolerating the combination therapy of Haldol and Abilify well with no notable signs of EPS. MNPR due to his ongoing psychosis. Overall, I spent a total of 35 minutes with this case including review of chart records, nursing report, review of lab work, direct evaluation of the patient at bedside, counseling the patient, orders, and documentation in the electronic health record and speaking with his outpatient manager case. (1) Schizophrenia: (2) Prediabetes: Plan 02/28/2024: Continue current medication and treatment plan. 02/27/2024: Decrease lorazepam to 1.5 mg nightly. Ibuprofen 400 mg every 6 hours as needed for wrist pain. Continue other medications and treatment plan. 02/26/2024: Continue haldol and abilify po. Haldol decanoate 100mg CONDE tomorrow. Continue with oral overlap for 2-3 months or for one week if he'll be getting additional loading dose (either haldol decanoate CONDE 100mg again for week 2,3 and 4 and then CONDE 200mg qmonthly) 02/25/2024: Continue current medications and tx plan. 02/24/2024: Restart abilify 15mg qd. Start metformin ER 500mg qdinner. 02/23/2024: Continue current medications and tx plan. 02/22/2024: Discontinue abilify. Start haldol 5mg BID. Continue Cogentin prn. 02/21/2024: Continue current medications and tx plan 02/20/2024: Increase Abilify to 15mg daily. 02/19/2024: The patient was [facility] to the [facility] on q15 min checks (behavioral with suicide precautions) for safety. The patient will participate in group, recreational, and milieu therapies and will be offered additional individual and family sessions as clinically appropriate. Start Abilify 10 mg daily. Continue lorazepam 2 mg at bedtime. Start benztropine 1 mg twice daily as needed for EPS and dystonia. Start Colace 100 mg twice daily for constipation. Resume home Rosuvastatin 5mg daily. Inventory Assets Strengths: has outpatient resources, employed Needs: insurance, medication management Suicide Risk Level Suicide Risk Level: Moderate (q15 min suicide checks) (denies SI but with disorganized behavior and psychosis, feels safe in the hospital ) Risk Factors Assessment Male: Yes : No Do You Have Access To A Gun?: No Health Problems: Yes Mental Health Diagnoses: Yes Substance Use Disorders: No Previous Attempt: No Family History of Suicide: No Previous Psychiatric Hospitalization: Yes Hopelessness: No Protective Factors Assessment Rastafarian Beliefs: Yes : Yes Responsible for Young Children: No Employed: Yes ([employer]) Stable Relationships: No Supportive Family: No Good Rapport with Provider: Yes Absence of Any Risk Factors Above: No Interval History Identifying Information LEXII TEE is a 33-year-old man with a history of schizophrenia, alcohol use, anemia who presents in police custody for psychosis and inability to care for self. Collateral reveals he was off his medication for 1 week (Caplyta), endorsed hearing voices of God, and presented tangential thought process. He was admitted on 02/18/24 21:47 on a 302 involuntary commitment for psychosis and inability to care for self. Converted to 201 voluntary commitment. Chief Complaint "[]". Review of Systems Sleep Information Total Hours of Sleep: 5.5 Meal Information Percent Meal Consumed - Breakfast: 100 Percent Meal Consumed - Lunch: 100 Percent Meal Consumed - Dinner: 100 Subjective Subjective Patient was seen & assessed and interval progress reviewed with nursing and social work Nursing reported some inappropriate laughter and smiling. Patient is at [facility] and may go back. No PRNs given overnight. Patient reports sleeping well; tolerated the decrease in Ativan. Reports he is from [place]. Father was assassinated at a young age and mother from cancer in 2009. Sister was a [place] citizen and came to [place] to stay with her. Has not been in touch with his sister because she believes in God and he does not in their views conflict. 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 We discussed past antipsychotic tolerability and side effects. Reports in the past being on Haldol and having "rigidity" that was concerning for dystonia; reports this resolved with continued Haldol use. Denies sexual side effects from antipsychotic. Reports stopping Caplyta because he did not feel it was effective. Reports Haldol has been the most effective for his thought problems. Reports having a however does not want her to know about the hospitalization because of conflicting thoughts about God. 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 He currently works 6 days out of the week at 2 jobs and has 1 day off. He denies current dystonia, inner restlessness (akathisia), unstable gait, lightheadedness. He denies suicidal i deation, homicidal ideation, and auditory visual hallucinations. He was educated about his treatment regimen. No further concerns presented. Physical Exam Mental Examination Appearance: Unkempt and Disheveled Eye Contact: Maintains Eye Contact Motor Behavior: Restless Speech: Slurred, Repetitive and Delayed Mood: Euthymic Affect: Congruent and Constricted Thought Process: Disorganized Thought Content: Thought Blocking Hallucinations: None (denies AVH) Insight: Poor (to limited) Judgement: Fair Vital Signs (Past 24 Hours) Last Vital Signs Temp 36.8 C 02/28/24 06:35 Pulse 109 H 02/28/24 06:36 Resp 18 02/28/24 06:35 BP 114/69 02/28/24 06:36 Pulse Ox 97 02/22/24 06:52 O2 Del Method Room Air 02/22/24 06:52 Results & Data (U) Current Inpatient Medications Current Inpatient Medications: Current Inpatient Medications Acetaminophen (Acetaminophen 325 Mg Tab) 650 mg PO Q4H PRN PRN Reason: Headache or Minor Fever Stop: 03/19/24 23:24 Last Admin: 02/26/24 20:40 Dose: 650 mg Al Hydrox/Mg Hydrox/Simethicone (Aluminum/Magnesium Susp 30 Ml Udc) 30 ml PO Q4H PRN PRN Reason: GI Upset Stop: 03/19/24 23:24 Aripiprazole (Aripiprazole 15 Mg Tab) 15 mg PO QAM LINO Stop: 03/25/24 09:29 Last Admin: 02/28/24 07:30 Dose: 15 mg Benzonatate (Benzonatate 100 Mg Capsule) 100 mg PO BID PRN PRN Reason: Cough Stop: 03/21/24 15:25 Last Admin: 02/21/24 23:46 Dose: 100 mg Benztropine Mesylate (Benztropine Mesylate 1 Mg Tab) 1 mg PO BID PRN PRN Reason: EPS, dystonia Stop: 03/20/24 11:52 Docusate Sodium (Docusate Sodium 100 Mg Cap) 100 mg PO BID PRN PRN Reason: Constipation Stop: 03/20/24 11:59 Haloperidol (Haloperidol 5 Mg Tab) 5 mg PO Q8 PRN PRN Reason: Psychosis Stop: 03/19/24 23:28 Last Admin: 02/23/24 05:43 Dose: 5 mg Haloperidol (Haloperidol 5 Mg Tab) 5 mg PO BID LINO Stop: 03/23/24 20:59 Last Admin: 02/28/24 07:30 Dose: 5 mg Hydroxyzine HCl (Hydroxyzine Hcl 25 Mg Tab) 50 mg PO HSZ PRN PRN Reason: Insomnia Stop: 03/19/24 23:24 Hydroxyzine HCl (Hydroxyzine Hcl 25 Mg Tab) 50 mg PO Q4H PRN PRN Reason: Anxiety Stop: 03/19/24 23:24 Ibuprofen (Ibuprofen 200 Mg Tab) 400 mg PO Q6H PRN PRN Reason: Pain, Inflammation Stop: 03/28/24 11:33 Lorazepam (Lorazepam 1 Mg Tab) 1 mg PO BID PRN PRN Reason: Agitation Stop: 03/22/24 15:05 Lorazepam (Lorazepam 0.5 Mg Tab) 1.5 mg PO HS LINO Stop: 03/28/24 21:59 Last Admin: 02/27/24 21:08 Dose: 1.5 mg Magnesium Hydroxide (Magnesium Hydroxide Susp 30 Ml Udc) 30 ml PO DAILY PRN PRN Reason: Constipation Stop: 03/19/24 23:24 Menthol (Cough Drop (Sugar Free) Yaneli 24 Yaneli/1 Box) 1 yaneli BUCCAL Q2H PRN PRN Reason: Cough Stop: 03/20/24 20:55 Last Admin: 02/25/24 06:26 Dose: 1 yaneli Metformin HCl (Metformin Hcl Er 500 Mg Tabcr) 500 mg PO PM LINO Stop: 03/25/24 20:59 Last Admin: 02/27/24 21:07 Dose: 500 mg Ondansetron HCl (Ondansetron 4 Mg Od Tab) 4 mg PO BID PRN PRN Reason: Nausea Stop: 03/22/24 14:44 Rosuvastatin Calcium (Rosuvastatin Calcium 5 Mg Tab) 5 mg PO QAM [facility] Stop: 03/20/24 11:59 Last Admin: 02/28/24 07:30 Dose: 5 mg Sodium Chloride (Sodium Chloride 0.65% Na Soln 45 Ml ([place])) 1 - 2 sprays NA PRN PRN PRN Reason: Nasal Dryness/Congestion Stop: 03/19/24 23:24 Mental Health & Subst Abuse Tx Psychiatrist Name of Psychiatrist: LIOR Psychiatrist's Date Of Appointment With Psychiatric Provider: 03-02-24 Time of Appointment with Psychiatrist: 10:30 Office Communication Professor Name of Office Communication Professor: Batool Hoffman MH/ID Post Discharge Appointments Primary Care Physician Name Of Family Doctor/PCP: CHRISTIN
[2024-02-29] MEDS: hydrOXYzine HCl 25 MG TAB PO PRN ×2 (03:53→21:29)
[2024-02-29 06:46] VITALS: RESP 16
--- NOTE | 2024-02-29 18:45 | Psychiatric Progress Note ---
Date of Service February 29, 2024 Impression / Recommendations Impression 33 yo man with a history of schizophrenia and presents recurrence of psychosis in the context of medication nonadherence due to dry mouth side effects on a 302 commitment now voluntary. Diagnostically consistent with acute exacerbation of schizophrenia. A: Patient presents less thought blocking today and does not appear to perseverate. Plan to decrease nightly Ativan dose. Patient declines supplementary Haldol decanoate shot and wants to continue oral for 2 to 3 months with monthly shot. Plan for case management coordinator to touch base with the patient and confirm baseline status. MNPR due to his ongoing psychosis. Overall, I spent a total of 35 minutes with this case including review of chart records, nursing report, review of lab work, direct evaluation of the patient at bedside, counseling the patient, orders, and documentation in the electronic health record and speaking with his outpatient upper caser. (1) Schizophrenia: (2) Prediabetes: Plan 02/29/2024: Decrease nightly lorazepam to 1 mg at bedtime. Continue other medications and treatment plan. 02/28/2024: Continue current medication and treatment plan. 02/27/2024: Decrease lorazepam to 1.5 mg nightly. Ibuprofen 400 mg every 6 hours as needed for wrist pain. Continue other medications and treatment plan. 02/26/2024: Continue haldol and abilify po. Haldol decanoate 100mg CONDE tomorrow. Continue with oral overlap for 2-3 months or for one week if he'll be getting additional loading dose (either haldol decanoate CONDE 100mg again for week 2,3 and 4 and then CONDE 200mg qmonthly) 02/25/2024: Continue current medications and tx plan. 02/24/2024: Restart abilify 15mg qd. Start metformin ER 500mg qdinner. 02/23/2024: Continue current medications and tx plan. 02/22/2024: Discontinue abilify. Start haldol 5mg BID. Continue Cogentin prn. 02/21/2024: Continue current medications and tx plan 02/20/2024: Increase Abilify to 15mg daily. 02/19/2024: The patient was admitted to the [facility]) on q15 min checks (behavioral with suicide precautions) for safety. The patient will participate in group, recreational, and milieu therapies and will be offered additional individual and family sessions as clinically appropriate. Start Abilify 10 mg daily. Continue lorazepam 2 mg at bedtime. Start benztropine 1 mg twice daily as needed for EPS and dystonia. Start Colace 100 mg twice daily for constipation. Resume home Rosuvastatin 5mg daily. Inventory Assets Strengths: has outpatient resources, employed Needs: insurance, medication management Suicide Risk Level Suicide Risk Level: Moderate (q15 min suicide checks) (denies SI but with disorganized behavior and psychosis, feels safe in the hospital ) Risk Factors Assessment Male: Yes : No Do You Have Access To A Gun?: No Health Problems: Yes Mental Health Diagnoses: Yes Substance Use Disorders: No Previous Attempt: No Family History of Suicide: No Previous Psychiatric Hospitalization: Yes Hopelessness: No Protective Factors Assessment Restoration Beliefs: Yes : Yes Responsible for Young Children: No Employed: Yes ([employer]) Stable Relationships: No Supportive Family: No Good Rapport with Provider: Yes Absence of Any Risk Factors Above: No Interval History Identifying Information LEXII TEE is a 33-year-old man with a history of schizophrenia, alcohol use, anemia who presents in police custody for psychosis and inability to care for self. Collateral reveals he was off his medication for 1 week (Caplyta), endorsed hearing voices of God, and presented tangential thought process. He was admitted on 02/18/24 21:47 on a 302 involuntary commitment for psychosis and inability to care for self. Converted to 201 voluntary commitment. Chief Complaint Psychosis. Review of Systems Sleep Information Total Hours of Sleep: 4.25 Sleep Comments: SHA Gee at 0353 Meal Information Percent Meal Consumed - Breakfast: 100 Percent Meal Consumed - Lunch: 100 Percent Meal Consumed - Dinner: 100 Subjective Subjective Patient was seen & assessed and interval progress reviewed with treatment team nursing and social work Reports having a good night. Agreeable to lower dose of Ativan at bedtime. He denies having dystonia, akathisia, or other EPS symptoms. Educated about adherence to Haldol decanoate and oral pills. He denies SI, HI, and AVH. Denies having thoughts of praying to god. Physical Exam Mental Examination Appearance: Unkempt and Disheveled Eye Contact: Maintains Eye Contact Motor Behavior: Restless Speech: Slurred, Repetitive and Delayed Mood: Euthymic Affect: Congruent and Constricted Thought Process: Disorganized Thought Content: Thought Blocking Hallucinations: None (denies AVH) Insight: Poor (to limited) Judgement: Fair Vital Signs (Past 24 Hours) Last Vital Signs Temp 36.9 C 02/29/24 06:45 Pulse 73 02/29/24 06:45 Resp 16 02/29/24 06:45 BP 112/72 02/29/24 06:45 Pulse Ox 97 02/22/24 06:52 O2 Del Method Room Air 02/22/24 06:52 Results & Data ([facility]) Current Inpatient Medications Current Inpatient Medications: Current Inpatient Medications Acetaminophen (Acetaminophen 325 Mg Tab) 650 mg PO Q4H PRN PRN Reason: Headache or Minor Fever Stop: 03/19/24 23:24 Last Admin: 02/29/24 16:15 Dose: 650 mg Al Hydrox/Mg Hydrox/Simethicone (Aluminum/Magnesium Susp 30 Ml Udc) 30 ml PO Q4H PRN PRN Reason: GI Upset Stop: 03/19/24 23:24 Aripiprazole (Aripiprazole 15 Mg Tab) 15 mg PO QAM [facility] Stop: 03/25/24 09:29 Last Admin: 02/29/24 07:37 Dose: 15 mg Benzonatate (Benzonatate 100 Mg Capsule) 100 mg PO BID PRN PRN Reason: Cough Stop: 03/21/24 15:25 Last Admin: 02/21/24 23:46 Dose: 100 mg Benztropine Mesylate (Benztropine Mesylate 1 Mg Tab) 1 mg PO BID PRN PRN Reason: EPS, dystonia Stop: 03/20/24 11:52 Docusate Sodium (Docusate Sodium 100 Mg Cap) 100 mg PO BID PRN PRN Reason: Constipation Stop: 03/20/24 11:59 Haloperidol (Haloperidol 5 Mg Tab) 5 mg PO Q8 PRN PRN Reason: Psychosis Stop: 03/19/24 23:28 Last Admin: 02/23/24 05:43 Dose: 5 mg Haloperidol (Haloperidol 5 Mg Tab) 5 mg PO BID LINO Stop: 03/23/24 20:59 Last Admin: 02/29/24 07:36 Dose: 5 mg Hydroxyzine HCl (Hydroxyzine Hcl 25 Mg Tab) 50 mg PO HSZ PRN PRN Reason: Insomnia Stop: 03/19/24 23:24 Hydroxyzine HCl (Hydroxyzine Hcl 25 Mg Tab) 50 mg PO Q4H PRN PRN Reason: Anxiety Stop: 03/19/24 23:24 Last Admin: 02/29/24 03:53 Dose: 50 mg Ibuprofen (Ibuprofen 200 Mg Tab) 400 mg PO Q6H PRN PRN Reason: Pain, Inflammation Stop: 03/28/24 11:33 Lorazepam (Lorazepam 1 Mg Tab) 1 mg PO BID PRN PRN Reason: Agitation Stop: 03/22/24 15:05 Lorazepam (Lorazepam 1 Mg Tab) 1 mg PO HS LINO Stop: 03/30/24 21:59 Magnesium Hydroxide (Magnesium Hydroxide Susp 30 Ml Udc) 30 ml PO DAILY PRN PRN Reason: Constipation Stop: 03/19/24 23:24 Menthol (Cough Drop (Sugar Free) Yaneli 24 Yaneli/1 Box) 1 yaneli BUCCAL Q2H PRN PRN Reason: Cough Stop: 03/20/24 20:55 Last Admin: 02/25/24 06:26 Dose: 1 yaneli Metformin HCl (Metformin Hcl Er 500 Mg Tabcr) 500 mg PO PM LINO Stop: 03/25/24 20:59 Last Admin: 02/28/24 21:05 Dose: 500 mg Ondansetron HCl (Ondansetron 4 Mg Od Tab) 4 mg PO BID PRN PRN Reason: Nausea Stop: 03/22/24 14:44 Rosuvastatin Calcium (Rosuvastatin Calcium 5 Mg Tab) 5 mg PO QAM LINO Stop: 03/20/24 11:59 Last Admin: 02/29/24 07:36 Dose: 5 mg Sodium Chloride (Sodium Chloride 0.65% Na Soln 45 Ml ([place])) 1 - 2 sprays NA PRN PRN PRN Reason: Nasal Dryness/Congestion Stop: 03/19/24 23:24 Mental Health & Subst Abuse Tx Psychiatrist Name of Psychiatrist: LIOR Psychiatrist's Date Of Appointment With Psychiatric Provider: 03-02-24 Time of Appointment with Psychiatrist: 10:30 Replenishment Associate Name of Replenishment Associate: Batool Hoffman MH/ID Post Discharge Appointments Primary Care Physician Name Of Family Doctor/PCP: CHRISTIN Rivera Date of Future Appointment with PCP: 11/03/23 Time of Appointment with PCP: 2:15pm
[2024-02-29] MEDS: LORazepam 1 MG TAB PO SCH (21:26)
[2024-03-01 06:48] VITALS: TEMP 98.6
[2024-03-01 14:36] VITALS: BP 113/72; PULSE 98
== END 2024-03-01 15:10 | disposition home or self-care (01) | DRG 885 ==
LOC: ED 18:34 → SUATTDRO 21:47 → 3S 21:47

== ENCOUNTER 2025-07-02 19:01 | Inpatient (IN) ==
[2025-07-02 19:49] LABS: Hematocrit (blood only) 42.0 % (42.0-52.0); Hemoglobin 14.0 g/dl (14.0-18.0); Immature Granulocytes # (auto) 0.01 K/uL (0.01-0.20); Immature Granulocytes % (auto) 0.1 %; Mean Corpuscular Hemoglobin 28.7 pg (25.0-34.0); Mean Corpuscular Volume 86.2 fL (80.0-100.0); Platelet Count 336 K/uL (130-400); RDW Standard Deviation 44.5 fL (36.4-46.3); Red Blood Count 4.87 M/uL (4.70-6.10); White Blood Count 7.27 K/ul (4.8-10.8)
[2025-07-02 19:58] LABS: Appearance Urine Clear (Clear); Bacteria Urine Automated None Seen (None Seen); Cast Urine Automated 0-2 /lpf (0-2); Epithelial Cell Urine Auto 0-2 /hpf (0-2); Glucose Urine UA Negative (Negative); RBC Urine Automated 0-2 /hpf (0-2); WBC Urine Automated 0-5 /hpf (0-5)
[2025-07-02 20:09] LABS: Alanine Aminotransferase 38.0 U/L (7-52); Albumin Globulin Ratio 1.2 (0.9-2); Albumin Level 4.2 gm/dl (3.4-5.0); Alkaline Phosphatase 70.0 U/L (34-104); Anion Gap 7.0 (3-11); Bilirubin,Total 0.4 mg/dl (0.2-1.0); Blood Urea Nitrogen 13.0 mg/dl (6-23); Calcium 9.4 mg/dl (8.6-10.3); Carbon Dioxide 24.0 mmol/L (21-32); Chloride 105.0 mmol/L (98-107); Creatinine Clr Calc Pharmacy 151.1 ml/min; Globulin 3.5 gm/dl (2.5-4.0); Glucose 99.0 mg/dl (70-99(Fasting)); Potassium 4.0 mmol/L (3.5-5.1); Sodium 136.0 mmol/L (136-145); Total Protein 7.7 gm/dl (6.0-8.3)
[2025-07-02 20:16] LABS: Acetaminophen < 3 ug/ml (10-30); Salicylate < 3.0 mg/dl (3.0-30)
[2025-07-02 20:17] LABS: Amphetamines+Metham, Urine Neg (Neg); MDMA (Ecstacy), Urine Neg (Neg); Marijuana, Urine Neg (Neg)
[2025-07-02 20:23] LABS: Thyroid Stimulating Hormone 1.567 uIu/ml (0.300-4.500)
--- NOTE | 2025-07-03 00:09 | Emergency Department Note ---
History of Present Illness General Chief complaint: Mental Health Evaluation Stated complaint: 201 Time Seen by Provider: 07/02/25 19:08 History of Present Illness Provider complaint: Mental health evaluation 35-year-old schizophrenic male presents emergency department with with suicidal ideation. Patient reportedly was harassing people locally and dumped a glass of water on another woman as he thought she was stalking him. Home Medications Medication Instructions Recorded Confirmed Type Caplyta 42 mg PO HS 03/28/25 07/02/25 History rosuvastatin 5 mg tablet (Crestor) 5 mg PO DAILY 03/29/25 03/29/25 History Allergies Allergy/AdvReac Type Severity Reaction Status Date / Time meloxicam AdvReac blurred Verified 12/31/23 13:26 vision naproxen AdvReac blurred Verified 12/31/23 13:26 vision Past Med/Surg History Problem List (Updated 07/03/25 @ 00:15 by Jesus Hackett MD) Suicidal ideation (Acute) Schizophrenia (Acute) Itchy skin Health care maintenance Decreased libido Right knee dislocation Numbness of fingers of both hands Schizophrenia (Chronic) Hyperlipidemia (Acute) Mild obesity (Acute) Normocytic anemia (Acute) Medical History Suicidal ideation Hyperlipidemia Hallucinations Mood disorder Schizophrenia Unprotected sex Cough Medication side effects Weakness generalized 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: No Beliefs That Will Affect Care: None marital status: Single Current Living Situation: Other Current Living Situation Comment: Apartment , see ED admission report current occupational status: employed Feels Safe at Home: Declines to Answer Childhood Exposure to Second-Hand Smoke: No Dental Care, Regularly: No Physical Activity Frequency: Does not Exercise Seatbelt Use: always Sunscreen Use: No Gender Identity: Male Assistive Devices: None and Glasses Physical Exam Vital Signs Vital Signs - 24 hr 07/02/25 19:06 07/02/25 22:19 Temperature 36.6 C Temperature Source Oral Pulse Rate 83 Pulse Rate [Right Finger] 95 H Pulse Rhythm [Right Finger] Regular Pulse Strength [Right Finger] Normal Respiratory Rate 20 18 Respiratory Effort / Characteristics Non-Labored Respiratory Depth Normal Respiratory Pattern Regular Blood Pressure 145/100 H Blood Pressure [Right Arm] 155/77 H Blood Pressure Mean 115 Blood Pressure Mean [Right Arm] 103 Blood Pressure Position [Right Arm] Sitting Pulse Oximetry 97 99 Oxygen Delivery Method Room Air Room Air Sepsis Recent Fever Within 48 Hours No Sepsis New/Unexplained Change in Mental Status No Sepsis Action Taken by Nursing No Action Required Physical Exam GENERAL: oriented to person, place, and time. appears well-developed and well- nourished. HENT: Exam performed. - Head: Normocephalic and atraumatic. EYES: Conjunctivae and EOM are normal. Right eye exhibits no discharge. Left eye exhibits no discharge. No scleral icterus. NECK: Normal range of motion. Neck supple. No JVD present. CV: Normal rate, regular rhythm, normal heart sounds and intact distal pulses. There is no peripheral edema. Palpable radial pulses bue. PULM/CHEST: Effort normal and breath sounds normal. No respiratory distress. No stridor. no wheezes. no rales. ABD: The abdomen is soft. There is no tenderness. NEURO: Motor and sensation grossly intact. SKIN: Skin is warm and dry. He is not diaphoretic. PSYCH: Bizarre affect. Suicidal ideation. Course Course 190: The patient was evaluated in room A7. A complete history and physical exam was performed 2030: Patient medically cleared awaiting psychiatric evaluation and possible placement. 0014: Patient accepted to 3 S. Medical Decision Making Laboratory Data Attestation: I reviewed the patient's lab results. 07/02/25 19:24 07/02/25 19:24 Lab Results 07/02/25 07/02/25 Range/Units 19:16 19:24 WBC 7.27 (4.8-10.8) K/ul RBC 4.87 (4.70-6.10) M/uL Hgb 14.0 (14.0-18.0) g/dl Hct 42.0 (42.0-52.0) % MCV 86.2 (80.0-100.0) fL MCH 28.7 (25.0-34.0) pg MCHC 33.3 (32.0-36.0) g/dL RDW Std Deviation 44.5 (36.4-46.3) fL RDW Coeff of Tawanna 14.2 (11.5-14.5) % Plt Count 336 (130-400) K/uL MPV 10.2 (9.4-12.4) fL Immature Gran % (Auto) 0.1 % Neut % (Auto) 51.5 % Lymph % (Auto) 35.5 % [place] % (Auto) 7.8 % Eos % (Auto) 3.9 % Baso % (Auto) 1.2 % Neut # (Auto) 3.74 (1.40-6.50) K/uL Lymph # (Auto) 2.58 (1.20-3.40) K/uL [place] # (Auto) 0.57 (0.11-0.59) K/uL Eos # (Auto) 0.28 (0.00-0.50) K/uL Baso # (Auto) 0.09 (0.00-0.20) K/uL Immature Gran # (Auto) 0.01 (0.01-0.20) K/uL Sodium 136 (136-145) mmol/L Potassium 4.0 (3.5-5.1) mmol/L Chloride 105 (98-107) mmol/L Carbon Dioxide 24 (21-32) mmol/L Anion Gap 7 (3-11) BUN 13 (6-23) mg/dl Creatinine 0.95 (0.6-1.4) mg/dl Est Cr Clr Drug Dosing 151.1 ml/min eGFR 108.39 BUN/Creatinine Ratio 13.7 (10-20) Glucose 99 (70-99(Fasting)) mg/dl Calcium 9.4 (8.6-10.3) mg/dl Total Bilirubin 0.4 (0.2-1.0) mg/dl AST 38 (13-39) U/L ALT 38 (7-52) U/L Alkaline Phosphatase 70 (34-104) U/L Total Protein 7.7 (6.0-8.3) gm/dl Albumin 4.2 (3.4-5.0) gm/dl Globulin 3.5 (2.5-4.0) gm/dl Albumin/Globulin Ratio 1.2 (0.9-2) TSH 1.567 (0.300-4.500) uIu/ml Urine Color Yellow Urine Appearance Clear (Clear) Urine pH 6.5 (4.5-7.5) Ur Specific [place] 1.012 (1.000-1.030) Urine Protein 1+ H (Negative) Urine Glucose (UA) Negative (Negative) Urine Ketones Negative (Negative) Urine Blood Negative (Negative) Urine Nitrite Negative (Negative) Urine Bilirubin Negative (Negative) Urine Urobilinogen Negative (Negative) Ur Leukocyte Esterase Negative (Negative) Urine WBC (Auto) 0-5 (0-5) /hpf Urine RBC (Auto) 0-2 (0-2) /hpf U Hyaline Cast (Auto) 0-2 (0-2) /lpf U Epithel Cells (Auto) 0-2 (0-2) /hpf Urine Bacteria (Auto) None Seen (None Seen) Urine Comment Salicylates < 3.0 L (3.0-30) mg/dl Urine Opiates Screen Neg (Neg) Ur Methadone, Qual Neg (Neg) Urine Fentanyl Screen Neg (Neg) Acetaminophen < 3 L (10-30) ug/ml Urine Barbiturates Neg (Neg) Ur Phencyclidine (PCP) Neg (Neg) U Amphetamin/Meth Scrn Neg (Neg) MDMA (Ecstasy) Screen Neg (Neg) U Benzodiazepines Scrn Neg (Neg) Ur Cocaine Metabolite Neg (Neg) U Marijuana (THC) Screen Neg (Neg) Ethyl Alcohol mg/dL < 10.0 (<10.0) mg/dl SARS-CoV-2, RNA, NAAT NEGATIVE (NEGATIVE) MDM Narrative 1908: The patient was evaluated in room A7. A complete history and physical exam was performed 2030: Patient medically cleared awaiting psychiatric evaluation and possible placement. 0014: Patient accepted to 3 S. Impression & Plan Suicidal ideation, Schizophrenia Discharge Plan Visit Data Chief Complaint: Mental Health Evaluation Stated Complaint: 201 ED Provider: Jesus Hackett Discharge Problem: Suicidal ideation, Schizophrenia Patient Disposition: Admitted As Inpatient Condition: Fair Forms Stand Alone Forms: [facility], Suicide Prevention Resources Prescriptions Prescriptions: No Action Caplyta tablet 42 mg PO HS rosuvastatin [Crestor] 5 mg Tablet 5 mg PO DAILY Referrals Referrals: PCP,NO [Primary Care Provider] -
[2025-07-03] MEDS ORDERED: ACETAMINOPHEN 325 MG TAB PO PRN (00:54)
[2025-07-03] MEDS ORDERED: SODIUM CHLORIDE 0.65% NA SOLN 45 ML (OCEAN) PRN (00:54)
[2025-07-03] MEDS ORDERED: MAGNESIUM HYDROXIDE SUSP 30 ML UDC PO PRN (00:54)
[2025-07-03] MEDS ORDERED: ALUMINUM/MAGNESIUM SUSP 30 ML UDC PO PRN (00:54)
--- NOTE | 2025-07-03 08:51 | History & Physical ---
Date of Service July 03, 2025 Impression / Recommendations Impression LEXII TEE is a 35-year-old M who currently lives in in an apartment with 1 roommate, has a history of schizophrenia, and was admitted on 07/03/25 00:26 on a 201 voluntary commitment for increased psychosis, and suicidal ideation. I reviewed the records extensively, since this patient is previously known to [facility] psychiatry department from multiple past admissions. Does appear he has previously been diagnosed with schizophrenia. Interestingly, he says "Caplyta was working perfectly, until I stopped sleeping." He also has a notable pressure and energy to his speech and presentation today. I am questioning whether this could reflect some manic fluctuation in his mood, given it is fall, and it this could have spurred up more paranoia despite being consistent on his medication. Another possibility on the differential though, is that he actually was not adherent with his medication, which would be consistent with previous. Finally, it his last admission, Caplyta appeared to not be sufficient for stabilization for him, and he was changed over to Haldol DEC and Abilify. Is unclear at this point why he was put back on Caplyta by his outpatient providers, but it would be helpful to obtain that information. he certainly has had many medication trials, and difficult to manage chronic psychotic symptoms. He reports he has never been on Depakote, and I cannot find any record of it either. Depakote can be added as augmentation strategy with antipsychotics in difficult to manage schizophrenia. If he does indeed have an element of bipolar disorder along with the schizophrenia, it could be helpful as a mood stabilizer as well. I did discuss the risks benefits and alternatives with him today, and he was agreeable to start it. ER 500 mg nightly, and will titrate up as he tolerates it. Since we do not have Caplyta on formulary here, I decided to go with another second-generation antipsychotic that similar, and that he has not tried- Vraylar. I started Vraylar 1.5mg today, then 3 mg daily, we could uptitrate if needed. In the meantime, I would like to gather information from his outpatient providers, as this may guide our antipsychotic choice as well. Upon admission there is some confusion about who he is seeing for outpatient providers, or if he is end of treatment. [employer] contribution is much appreciated in this arena. Is also unclear whether patient will be facing legal charges related to the incident at [facility]. Since we are starting a second generation antipsychotic, I will order fasting labs, since the last in our system were from his February 2024 admission. (1) Schizoaffective disorder: Plan 07/03/25: The patient was admitted to the [facility] ([facility] unit) on q15 min checks (behavioral with suicide precautions) for safety. The patient will participate in group, recreational, and milieu therapies and will be offered additional individual and family sessions as clinically appropriate. New medications initiated: Depakote ER 500 mg nightly Vraylar 1.5 mg today, then 3mg daily starting tomorrow Continue the following home medications: none The following PRN medications will be started as well: Vistaril 25 mg as needed anxiety, 50 mg as needed insomnia Cogentin 0.5 mg twice daily as needed EPS Ativan 1 mg every 6 hours as needed severe anxiety or agitation overall, I spent a total of 80 minutes on this patients care, including review of chart/records, direct evaluation of the patient, ordering medication, coordination with nursing, interdisciplinary team meeting, and documentation. Inventory Assets Strengths: Stable housing, outpatient providers, voluntary/seeking treatment Needs: chronically poor medication adherence, active psychosis, limited social supports Suicide Risk Level Suicide Risk Level: Moderate (q15 min suicide checks) Suicide Risk Level Comments: Risk factors include active psychosis, and patient reports suicidal ideation. He does report feeling safe on the unit, and can contact staff if symptoms worsen. Denies any intent or plan to hurt himself currently. Risk Factors Assessment Male: Yes : No Do You Have Access To A Gun?: No Health Problems: No Mental Health Diagnoses: Yes Substance Use Disorders: No Previous Attempt: Yes Family History of Suicide: No Previous Psychiatric Hospitalization: Yes Hopelessness: No Protective Factors Assessment Pentecostalism Beliefs: Yes : No Responsible for Young Children: No Employed: No Stable Relationships: No Supportive Family: No Psychiatric History Identifying Data LEXII TEE is a 35-year-old M who currently lives in in an apartment with 1 roommate, has a history of schizophrenia, and was admitted on 07/03/25 00:26 on a 201 voluntary commitment for increased psychosis, and suicidal ideation. Chief Complaint "I tried to commit suicide." History of Present Illness Patient is well-known to the unit from multiple past admissions. He presented to the emergency room via police, who picked him up at his apartment after an incident that occurred on 07/02 at a local coffee shop. Patient explains that he saw a woman on 07/01 and that is that has had she wanted to and have sex with a black man, and then believes he saw the same woman again when he was at [facility] on 07/02. He poured water on that woman woman's had to stop her from having such thoughts. He went back to his apartment, but says someone called the police. They picked him up and brought him to the emergency room. Once in the emergency room, patient also stated he has been having suicidal thoughts. He stated he tried to kill himself by taking extra doses of Caplyta. He appears have only take 1 or 2 extra pills in the past few days. He did sign himself in on a 201. Since his arrival to the unit, he has maintained safe behavior, but appears disorganized and actively responding to internal stimuli. I met with the patient privately in his room. His speech was notably fast, and he had a stammer that made it difficult to understand what he was saying at times. He did say he has been taking his medication regularly, "but because I could not sleep it stopped working properly." He said he last slept well about a month ago. His recollection of symptoms and events over the last month was difficult to follow. He had some loosening of associations and even word salad at times. At 1 point he said he drank alcohol, but was not drunk. He repeated multiple times that he was taking his medication. He gave his recounting of the his beliefs about the woman and [facility] several times. He said she wanted to be with a black man, but she was white and he thought that was wrong, which is why he poured the water on her. Past Psychiatric History Previous Psych History: Multiple past inpatient stays here at [facility], 3 or 4 in total, with the last 1 being in February 2024. At that time, Caplyta was actually changed to Haldol DEC with Abilify for augmentation. In addition to [facility], he has also been admitted at [facility], which was in 2022 Treatment has been through [place]. He has also been involved with [employer] for housing. Medication trial history is extensive. Does appear he has frequently gone back to Haldol, both in oral and long-acting injectable formulations. There is variable reports of him at times having dystonia, which was medicated with Artane and Cogentin. He has also been on Clozaril multiple times, with variable Bole reports about how sedating it was for him. He has been up to 200 mg at different times in the past. Other trials have included lithium, Lamictal, risperidone, Zyprexa, Thorazine, Seroquel, prazosin. At 1 point he had some form of tachycardia, which was presumably a side effect and was treated with atenolol. Current Psychiatric Diagnosis: Schizophrenia Do You Have Access To A Gun?: No History of Previous Suicide Attempt: Yes Allergies Allergy/AdvReac Type Severity Reaction Status Date / Time meloxicam AdvReac blurred Verified 12/31/23 13:26 vision naproxen AdvReac blurred Verified 12/31/23 13:26 vision Home Medications Medication Instructions Recorded Confirmed Type Caplyta 42 mg PO HS 03/28/25 07/02/25 History rosuvastatin 5 mg tablet (Crestor) 5 mg PO DAILY 03/29/25 03/29/25 History Family History Family History of: Doesn't Know Alcohol History Hx of Alcohol Use Over the Past 12 Months: Yes (1-2 beers per day. drinking marta ly for pat few weeks) AUDIT Total Score: 4 Smoking Use Have You Smoked or Used Tobacco Products in the Last 30 Days: No tobacco type: cigarettes Smoking Status: Never smoker Substance History Hx of Prescription Med Misuse Over the Past 12 Months: Yes (Pt states increased use/overdose of his Caplyta) Hx of Over the Counter Med Misuse Over the Past 12 Months: No Hx of Inhalent Misuse Over the Past 12 Months: No Hx of Organic Substance Use Over the Past 12 Months: No Hx of Illegal Substances/Street Drug Use Over Past 12 Months: No Problems as a Result of Past Substance Use: Attempted Suicide Personal History Living Arrangements: Apartment Born In: [place] Childhood: Middle of 5 children Highest Grade Completed: Some College Highest Grade Completed Comment: 2 years college, per previous notes Marital Status: Beliefs That Will Affect Care: None Hx Legal Problems: Yes (Per records, has a history of multiple arrests including felony charges in 2015 and 2016) Hx Traumatic Life Events: Yes Patient History Medical History Suicidal ideation Hyperlipidemia Hallucinations Mood disorder Schizophrenia Unprotected sex Cough Medication side effects Weakness generalized 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 Poor attention and tangential speech. denies any pain or discomfort. On admission, did report last BM was 2 weeks ago. Physical Exam Psychiatric: Orientation: alert and oriented x 3 Apperance: appropriately dressed, appropriately groomed and appeared stated age Eye Contact: + poor eye contact darting, avoidant Motor Behavior: + psychomotor agitation Speech: + pressured speech rapid Affect: + anxious affect and + blunted affect Mood: + depressed mood and + anxious mood Thought Process: + tangential thought process, + looseness of associations and + word salad appeared to have brief periods of word salad Thought Content: + paranoid Suicidal Thoughts: denies suicidal plan and denies suicidal intent; + reports suicidal thoughts Homicidal Thoughts: denies homicidal thoughts, denies homicidal plan and denies homicidal intent Hallucinations: + auditory hallucinations; no visual hallucinations Cognition: + attention not intact Estimated Intelligence: consistent with education level Insight: + impaired insight Judgment: + impaired judgement Vital Signs (Past 24 Hours): Last Vital Signs Temp 36.7 C 07/03/25 01:00 Pulse 56 L 07/03/25 01:00 Resp 18 07/03/25 01:00 BP 147/91 H 07/03/25 01:00 Pulse Ox 99 07/03/25 01:00 O2 Del Method Room Air 07/03/25 01:00 Physical Examination: A physical exam was performed in the ED by Dr Jesus Starks for the purposes of medical clearance. I accept that physical as correct and adequate for the purposes of the inpatient physical exam. Results & Data ([facility]) Laboratory Results Laboratory Results - last 24 hr 07/02/25 07/02/25 19:16 19:24 WBC 7.27 RBC 4.87 Hgb 14.0 Hct 42.0 MCV 86.2 MCH 28.7 MCHC 33.3 RDW Std Deviation 44.5 RDW Coeff of Tawanna 14.2 Plt Count 336 MPV 10.2 Immature Gran % (Auto) 0.1 Neut % (Auto) 51.5 Lymph % (Auto) 35.5 [place] % (Auto) 7.8 Eos % (Auto) 3.9 Baso % (Auto) 1.2 Neut # (Auto) 3.74 Lymph # (Auto) 2.58 [place] # (Auto) 0.57 Eos # (Auto) 0.28 Baso # (Auto) 0.09 Immature Gran # (Auto) 0.01 Sodium 136 Potassium 4.0 Chloride 105 Carbon Dioxide 24 Anion Gap 7 BUN 13 Creatinine 0.95 Est Cr Clr Drug Dosing 151.1 eGFR 108.39 BUN/Creatinine Ratio 13.7 Glucose 99 Calcium 9.4 Total Bilirubin 0.4 AST 38 ALT 38 Alkaline Phosphatase 70 Total Protein 7.7 Albumin 4.2 Globulin 3.5 Albumin/Globulin Ratio 1.2 TSH 1.567 Urine Color Yellow Urine Appearance Clear Urine pH 6.5 Ur Specific [place] 1.012 Urine Protein 1+ H Urine Glucose (UA) Negative Urine Ketones Negative Urine Blood Negative Urine Nitrite Negative Urine Bilirubin Negative Urine Urobilinogen Negative Ur Leukocyte Esterase Negative Urine WBC (Auto) 0-5 Urine RBC (Auto) 0-2 U Hyaline Cast (Auto) 0-2 U Epithel Cells (Auto) 0-2 Urine Bacteria (Auto) None Seen Urine Comment Salicylates < 3.0 L Urine Opiates Screen Neg Ur Methadone, Qual Neg Urine Fentanyl Screen Neg Acetaminophen < 3 L Urine Barbiturates Neg Ur Phencyclidine (PCP) Neg U Amphetamin/Meth Scrn Neg MDMA (Ecstasy) Screen Neg U Benzodiazepines Scrn Neg Ur Cocaine Metabolite Neg U Marijuana (THC) Screen Neg Ethyl Alcohol mg/dL < 10.0 SARS-CoV-2, RNA, NAAT NEGATIVE Current Inpatient Medications Current Inpatient Medications: Current Inpatient Medications Acetaminophen (Acetaminophen 325 Mg Tab) 650 mg PO Q4H PRN PRN Reason: Headache or Minor Fever Stop: 08/02/25 00:53 Al Hydrox/Mg Hydrox/Simethicone (Aluminum/Magnesium Susp 30 Ml Udc) 30 ml PO Q4H PRN PRN Reason: GI Upset Stop: 08/02/25 00:53 Hydroxyzine HCl (Hydroxyzine Hcl 25 Mg Tab) 50 mg PO HSZ PRN PRN Reason: Insomnia Stop: 08/02/25 00:53 Hydroxyzine HCl (Hydroxyzine Hcl 25 Mg Tab) 25 mg PO Q4H PRN PRN Reason: Anxiety Stop: 08/02/25 00:53 Magnesium Hydroxide (Magnesium Hydroxide Susp 30 Ml Udc) 30 ml PO DAILY PRN PRN Reason: Constipation Stop: 08/02/25 00:53 Sodium Chloride (Sodium Chloride 0.65% Na Soln 45 Ml ([place])) 1 - 2 sprays NA PRN PRN PRN Reason: Nasal Dryness/Congestion Stop: 08/02/25 00:53
[2025-07-03] MEDS ORDERED: BENZTROPINE MESYLATE 0.5 MG TAB PO PRN (15:39)
[2025-07-03] MEDS: CARIPRAZINE HCL 1.5 MG CAP PO SCH (16:59)
[2025-07-03] MEDS: DIVALPROEX EXTENDED RELEASE 500 MG TAB PO SCH (20:42)
--- NOTE | 2025-07-04 06:16 | Electrocardiogram Report ---
Test Reason : Blood Pressure : */* mmHG Vent. Rate : 88 BPM Atrial Rate : 88 BPM P-R Int : 158 ms QRS Dur : 74 ms QT Int : 356 ms P-R-T Axes : 64 31 4 degrees QTcB Int : 430 ms Normal sinus rhythm Premature atrial complexes When compared with ECG of 17-Dec-2021 12:24, Limb lead reversal is no longer present Premature atrial complexes are now Present Confirmed by Clarence Borja ([id number]) on 07/04/2025 6:15:53 AM Referred By: REFERRED SELF Confirmed By: Clarence Borja
[2025-07-04 08:06] LABS: Cholesterol 263.0 mg/dl (0-200); HDL Cholesterol 50.0 mg/dl; Triglycerides 99.0 mg/dl (0-150)
--- NOTE | 2025-07-04 08:49 | Psychiatric Progress Note ---
Date of Service July 04, 2025 Impression / Recommendations Impression LEXII TEE is a 35-year-old M who currently lives in in an apartment with 1 roommate, has a history of schizophrenia, and was admitted on 07/03/25 00:26 on a 201 voluntary commitment for increased psychosis, and suicidal ideation. I reviewed the records extensively, since this patient is previously known to [facility] psychiatry department from multiple past admissions. Does appear he has previously been diagnosed with schizophrenia. Interestingly, he says "Caplyta was working perfectly, until I stopped sleeping." He also has a notable pressure and energy to his speech and presentation today. I am questioning whether this could reflect some manic fluctuation in his mood, given it is fall, and it this could have spurred up more paranoia despite being consistent on his medication. Another possibility on the differential though, is that he actually was not adherent with his medication, which would be consistent with previous. Finally, it his last admission, Caplyta appeared to not be sufficient for stabilization for him, and he was changed over to Haldol DEC and Abilify. Is unclear at this point why he was put back on Caplyta by his outpatient providers, but it would be helpful to obtain that information. A: since patient has no insurance and does not want to apply for Medicaid, I am going to change his antipsychotic to a more affordable 1. He has previously been on Haldol and Haldol DEC, but I am not seeing notes that shows it was particularly effective, and there are conflicting reports of whether he had problematic dystonia or other movement abnormalities on it. It does look like he has had a thorough trial of Abilify, which is also available in an injection. I discussed the risks and benefits with him today, and he was agreeable to a trial. (1) Schizoaffective disorder: Plan 07/04/25: DC Caplyta start Abilify 5 mg continue Depakote at 500 for today, likely will increase to 750 mg tomorrow 07/03/25: The patient was admitted to the [facility] ([facility] mental health unit) on q15 min checks (behavioral with suicide precautions) for safety. The patient will participate in group, recreational, and milieu therapies and will be offered additional individual and family sessions as clinically appropriate. New medications initiated: Depakote ER 500 mg nightly Vraylar 1.5 mg today, then 3mg daily starting tomorrow Continue the following home medications: none The following PRN medications will be started as well: Vistaril 25 mg as needed anxiety, 50 mg as needed insomnia Cogentin 0.5 mg twice daily as needed EPS Ativan 1 mg every 6 hours as needed severe anxiety or agitation overall, I spent a total of 25 minutes on this patients care, including review of chart/records, direct evaluation of the patient, ordering medication, coordination with nursing, interdisciplinary team meeting, and documentation. Inventory Assets Strengths: Stable housing, outpatient providers, voluntary/seeking treatment Needs: chronically poor medication adherence, active psychosis, limited social supports Suicide Risk Level Suicide Risk Level: Moderate (q15 min suicide checks) Suicide Risk Level Comments: Risk factors include active psychosis, and patient reports suicidal ideation . He does report feeling safe on the unit, and can contact staff if symptoms worsen. Denies any intent or plan to hurt himself currently. Risk Factors Assessment Male: Yes : No Do You Have Access To A Gun?: No Health Problems: No Mental Health Diagnoses: Yes Substance Use Disorders: No Previous Attempt: Yes Family History of Suicide: No Previous Psychiatric Hospitalization: Yes Hopelessness: No Protective Factors Assessment Buddhist Beliefs: Yes : No Responsible for Young Children: No Employed: No Stable Relationships: No Supportive Family: No Interval History Chief Complaint "[]". Review of Systems Sleep Information Total Hours of Sleep: 4 Sleep Comments: Admitted early in shift Meal Information Percent Meal Consumed - Breakfast: 100 Percent Meal Consumed - Lunch: 50 Percent Meal Consumed - Dinner: 100 Subjective Subjective Patient was seen & assessed and interval progress reviewed with [treatment team] [nursing and social work] Per report: responding to internal stimuli hand gestures (baseline) speech impediment at baseline slept 4 hours rate mood 02/21 [place] [facility] [place] pacing halls declined medicaid application [place] with going back to [facility], doesn't want CM through [employer] [facility] met with patient privately in his room. On approach, he was actively responding to auditory hallucinations out loud, and making unusual hand movements as well. He did ask if we had heard from the police regarding any charges from the [employer] incident, and I confirmed that we had not. I discussed with him changing the Vraylar, given it is cost prohibitive without insurance. Discussed switching instead to Abilify, which he has been on previously but always with Haldol. He has never been on it as a solo treatment, or at doses higher than 15 mg. He was agreeable to that, but requested it start "at a low dose first." He was struggling to remain attentive, due to excessive internal stimuli distracting him. He denied any other concerns. Physical Exam Psychiatric Orientation: alert and oriented x 3 Apperance: appropriately dressed and appropriately groomed Eye Contact: + fair eye contact Motor Behavior: steady gait and station; n EPS Speech: + pressured speech Rapid speech. Not hyperverbal today. Affect: + blunted affect Mood: + depressed mood Thought Process: + thought blocking Thought Content: + paranoid and + delusions Suicidal Thoughts: denies suicidal thoughts, denies suicidal plan and denies suicidal intent Homicidal Thoughts: denies homicidal thoughts, denies homicidal plan and denies homicidal intent Hallucinations: + auditory hallucinations and + visual hallucinations Cognition: + attention not intact Estimated Intelligence: consistent with education level Insight: + limited insight Judgment: + limited judgement Vital Signs (Past 24 Hours) Last Vital Signs Temp 36.5 C 07/04/25 06:24 Pulse 89 07/04/25 06:25 Resp 18 07/04/25 06:24 BP 138/97 07/04/25 06:25 Pulse Ox 99 07/03/25 01:00 O2 Del Method Room Air 07/03/25 01:00 A physical exam was performed in the ED by Dr Jesus Starks for the purposes of medical clearance. I accept that physical as correct and adequate for the purposes of the inpatient physical exam. Results & Data ([facility]) Laboratory Results Laboratory Results - last 24 hr 07/04/25 07/04/25 07:29 07:30 Estimat Average Glucose Pending Hemoglobin A1c Pending Ammonia 30.0 Triglycerides 99 Cholesterol 263 H LDL Cholesterol, Calc 193 VLDL Cholesterol, Calc 20 HDL Cholesterol 50 Cholesterol/HDL Ratio 5.3 H Current Inpatient Medications Current Inpatient Medications: Current Inpatient Medications Acetaminophen (Acetaminophen 325 Mg Tab) 650 mg PO Q4H PRN PRN Reason: Headache or Minor Fever Stop: 08/02/25 00:53 Al Hydrox/Mg Hydrox/Simethicone (Aluminum/Magnesium Susp 30 Ml Udc) 30 ml PO Q4H PRN PRN Reason: GI Upset Stop: 08/02/25 00:53 Benztropine Mesylate (Benztropine Mesylate 0.5 Mg Tab) 0.5 mg PO BID PRN PRN Reason: EPS Stop: 08/02/25 15:38 Cariprazine (Cariprazine Hcl 1.5 Mg Cap) 1.5 mg PO DAILY LINO Stop: 08/02/25 15:04 Last Admin: 07/04/25 08:22 Dose: 1.5 mg Divalproex Sodium (Divalproex Extended Release 500 Mg Tab) 500 mg PO HS LINO Stop: 08/02/25 21:59 Last Admin: 07/03/25 20:42 Dose: 500 mg Hydroxyzine HCl (Hydroxyzine Hcl 25 Mg Tab) 50 mg PO HSZ PRN PRN Reason: Insomnia Stop: 08/02/25 00:53 Hydroxyzine HCl (Hydroxyzine Hcl 25 Mg Tab) 25 mg PO Q4H PRN PRN Reason: Anxiety Stop: 08/02/25 00:53 Lorazepam (Lorazepam 1 Mg Tab) 1 mg PO Q6H PRN PRN Reason: severe anxiety, or agitation Stop: 08/02/25 15:38 Magnesium Hydroxide (Magnesium Hydroxide Susp 30 Ml Udc) 30 ml PO DAILY PRN PRN Reason: Constipation Stop: 08/02/25 00:53 Sodium Chloride (Sodium Chloride 0.65% Na Soln 45 Ml ([place])) 1 - 2 sprays NA PRN PRN PRN Reason: Nasal Dryness/Congestion Stop: 08/02/25 00:53 Trazodone HCl (Trazodone Hcl 50 Mg Tab) 50 mg PO HS PRN PRN Reason: Insomnia Stop: 08/02/25 21:59 Mental Health & Subst Abuse Tx Therapist Name of Therapist: None current Respiratory Therapy Assistant Name of Respiratory Therapy Assistant: None current
[2025-07-04 11:23] LABS: Hemoglobin A1C 6.5 % (4.5-5.6)
[2025-07-04] MEDS: ARIPiprazole 5 MG TAB PO ONE (12:52)
[2025-07-05] MEDS: ARIPIprazole 1 MG/ML ORAL SOLN 150 ML BTL PO SCH (08:10)
--- NOTE | 2025-07-05 09:01 | Psychiatric Progress Note ---
Date of Service July 05, 2025 Impression / Recommendations Tatianna TEE is a 35-year-old M who currently lives in in an apartment with 1 roommate, has a history of schizophrenia, and was admitted on 07/03/25 00:26 on a 201 voluntary commitment for increased psychosis, and suicidal ideation. I reviewed the records extensively, since this patient is previously known to [facility] psychiatry department from multiple past admissions. Does appear he has previously been diagnosed with schizophrenia. Interestingly, he says "Caplyta was working perfectly, until I stopped sleeping." He also has a notable pressure and energy to his speech and presentation today. I am questioning whether this could reflect some manic fluctuation in his mood, given it is fall, and it this could have spurred up more paranoia despite being consistent on his medication. Another possibility on the differential though, is that he actually was not adherent with his medication, which would be consistent with previous. Finally, it his last admission, Caplyta appeared to not be sufficient for stabilization for him, and he was changed over to Haldol DEC and Abilify. Is unclear at this point why he was put back on Caplyta by his outpatient providers, but it would be helpful to obtain that information. A: Poor sleep, rapid/pressured speech, psychomotor agitation continues. Increase depakote ER. Abilify just started at 5mg yesterday and increased to 10mg earlier today- no further increase needed yet. (1) Schizoaffective disorder: Plan 07/05/25: - Increase depakote ER to 1000mg HS - Continue abilify 10mg as planned. - Start metformin and rosuvastatin - he was previously on these, and fasting labs showed both elevated A1C and elevated total cholesterol. 07/04/25: DC Caplyta start Abilify 5 mg continue Depakote at 500 for today 07/03/25: The patient was admitted to the [facility] ([facility] mental health unit) on q15 min checks (behavioral with suicide precautions) for safety. The patient will participate in group, recreational, and milieu therapies and will be offered additional individual and family sessions as clinically appropriate. New medications initiated: Depakote ER 500 mg nightly Vraylar 1.5 mg today, then 3mg daily starting tomorrow Continue the following home medications: none The following PRN medications will be started as well: Vistaril 25 mg as needed anxiety, 50 mg as needed insomnia Cogentin 0.5 mg twice daily as needed EPS Ativan 1 mg every 6 hours as needed severe anxiety or agitation overall, I spent a total of 25 minutes on this patients care, including review of chart/records, direct evaluation of the patient, ordering medication, coordination with nursing, interdisciplinary team meeting, and documentation. Inventory Assets Strengths: Stable housing, outpatient providers, voluntary/seeking treatment Needs: chronically poor medication adherence, active psychosis, limited social supports Suicide Risk Level Suicide Risk Level: Moderate (q15 min suicide checks) Suicide Risk Level Comments: Risk factors include active psychosis, and patient reports suicidal ideation. He does report feeling safe on the unit, and can contact staff if symptoms worsen. Denies any intent or plan to hurt himself currently. Risk Factors Assessment Male: Yes : No Do You Have Access To A Gun?: No Health Problems: No Mental Health Diagnoses: Yes Substance Use Disorders: No Previous Attempt: Yes Family History of Suicide: No Previous Psychiatric Hospitalization: Yes Hopelessness: No Protective Factors Assessment Pentecostalism Beliefs: Yes : No Responsible for Young Children: No Employed: No Stable Relationships: No Supportive Family: No Interval History Identifying Information LEXII TEE is a 35-year-old M who currently lives in in an apartment with 1 roommate, has a history of schizophrenia, and was admitted on 07/03/25 00:26 on a 201 voluntary commitment for increased psychosis, and suicidal ideation. Chief Complaint "I'm ok". Review of Systems Sleep Information Total Hours of Sleep: 4 Sleep Comments: Admitted early in shift Meal Information Percent Meal Consumed - Breakfast: 90 Percent Meal Consumed - Lunch: 95 Percent Meal Consumed - Dinner: 90 Subjective Subjective Patient was seen & assessed and interval progress reviewed with [treatment team. per report: only slept about 4 hours, interrupted struggles to tolerate group mood 02/21, did not describe showered yesterday actively responding, pacing and making hand gestures staff assisted pt contacting [facility] I met with pt in his room. He denied any concerns. He said he slept well and felt rested. Denied feeling sedated, having a tremor, or any other adverse effects. We discussed his lab abnormalities and need for increasing depakote. He was agreeable to that change, but said he did not want to change the Abilify dose. He declined to talk further. Physical Exam Psychiatric Orientation: alert, oriented x 3 and + guarded Apperance: appropriately dressed and appropriately groomed Eye Contact: + poor eye contact Motor Behavior: steady gait and station, no abnormal motor movements and + psychomotor agitation pacing Speech: + pressured speech rapid speech Affect: + blunted affect Mood: + depressed mood Thought Process: + thought blocking, + tangential thought process and + looseness of associations Thought Content: + paranoid and + delusions Suicidal Thoughts: denies suicidal thoughts, denies suicidal plan and denies suicidal intent Homicidal Thoughts: denies homicidal thoughts, denies homicidal plan and denies homicidal intent Hallucinations: + auditory hallucinations and + visual hallucinations Cognition: recent memory grossly intact, remote memory grossly intact and language grossly intact; + attention not intact Estimated Intelligence: consistent with education level Insight: + limited insight Judgment: + limited judgement Vital Signs (Past 24 Hours) Last Vital Signs Temp 36.4 C L 07/05/25 06:22 Pulse 94 H 07/05/25 06:23 Resp 18 07/05/25 06:22 BP 134/94 07/05/25 06:23 Pulse Ox 99 07/03/25 01:00 O2 Del Method Room Air 07/03/25 01:00 A physical exam was performed in the ED by Dr Jesus Starks for the purposes of medical clearance. I accept that physical as correct and adequate for the purposes of the inpatient physical exam. Results & Data ([facility]) Laboratory Results Laboratory Results - last 24 hr 07/04/25 07:29 Estimat Average Glucose 140 Hemoglobin A1c 6.5 H Current Inpatient Medications Current Inpatient Medications: Current Inpatient Medications Acetaminophen (Acetaminophen 325 Mg Tab) 650 mg PO Q4H PRN PRN Reason: Headache or Minor Fever Stop: 08/02/25 00:53 Al Hydrox/Mg Hydrox/Simethicone (Aluminum/Magnesium Susp 30 Ml Udc) 30 ml PO Q4H PRN PRN Reason: GI Upset Stop: 08/02/25 00:53 Aripiprazole (Aripiprazole 1 Mg/Ml Oral Soln 150 Ml Btl) 10 mg PO QAM LINO Stop: 08/04/25 08:59 Last Admin: 07/05/25 08:10 Dose: 10 mg Benztropine Mesylate (Benztropine Mesylate 0.5 Mg Tab) 0.5 mg PO BID PRN PRN Reason: EPS Stop: 08/02/25 15:38 Divalproex Sodium (Divalproex Extended Release 500 Mg Tab) 500 mg PO HS LINO Stop: 08/02/25 21:59 Last Admin: 07/04/25 20:52 Dose: 500 mg Hydroxyzine HCl (Hydroxyzine Hcl 25 Mg Tab) 50 mg PO HSZ PRN PRN Reason: Insomnia Stop: 08/02/25 00:53 Hydroxyzine HCl (Hydroxyzine Hcl 25 Mg Tab) 25 mg PO Q4H PRN PRN Reason: Anxiety Stop: 08/02/25 00:53 Lorazepam (Lorazepam 1 Mg Tab) 1 mg PO Q6H PRN PRN Reason: severe anxiety, or agitation Stop: 08/02/25 15:38 Magnesium Hydroxide (Magnesium Hydroxide Susp 30 Ml Udc) 30 ml PO DAILY PRN PRN Reason: Constipation Stop: 08/02/25 00:53 Sodium Chloride (Sodium Chloride 0.65% Na Soln 45 Ml ([place])) 1 - 2 sprays NA PRN PRN PRN Reason: Nasal Dryness/Congestion Stop: 08/02/25 00:53 Trazodone HCl (Trazodone Hcl 50 Mg Tab) 50 mg PO HS PRN PRN Reason: Insomnia Stop: 08/02/25 21:59 Mental Health & Subst Abuse Tx Therapist Name of Therapist: None current Wet Char Conveyor Tender Name of Wet Char Conveyor Tender: None current
[2025-07-05] MEDS: DIVALPROEX EXTENDED RELEASE 500 MG TAB PO SCH (21:49)
[2025-07-06] MEDS: ROSUVASTATIN CALCIUM 5 MG TAB PO SCH (08:07)
--- NOTE | 2025-07-06 08:42 | Psychiatric Progress Note ---
Date of Service July 06, 2025 Impression / Recommendations Tatianna TEE is a 35-year-old M who currently lives in in an apartment with 1 roommate, has a history of schizophrenia, and was admitted on 07/03/25 00:26 on a 201 voluntary commitment for increased psychosis, and suicidal ideation. I reviewed the records extensively, since this patient is previously known to [facility] psychiatry department from multiple past admissions. Does appear he has previously been diagnosed with schizophrenia. Interestingly, he says "Caplyta was working perfectly, until I stopped sleeping." He also has a notable pressure and energy to his speech and presentation today. I am questioning whether this could reflect some manic fluctuation in his mood, given it is fall, and it this could have spurred up more paranoia despite being consistent on his medication. Another possibility on the differential though, is that he actually was not adherent with his medication, which would be consistent with previous. Finally, it his last admission, Caplyta appeared to not be sufficient for stabilization for him, and he was changed over to Haldol DEC and Abilify. Is unclear at this point why he was put back on Caplyta by his outpatient providers, but it would be helpful to obtain that information. A: Still poor sleep, but mood is improving. Meds just increased yesterday. Continue on present doses and give more time. (1) Schizoaffective disorder: Plan 07/06/25: continue current meds and treatment 07/05/25: - Increase depakote ER to 1000mg HS - Continue abilify 10mg as planned. - Start metformin and rosuvastatin - he was previously on these, and fasting labs showed both elevated A1C and elevated total cholesterol. 07/04/25: DC Caplyta start Abilify 5 mg continue Depakote at 500 for today 07/03/25: The patient was admitted to the [facility]) on q15 min checks (behavioral with suicide precautions) for safety. The patient will participate in group, recreational, and milieu therapies and will be offered additional individual and family sessions as clinically appropriate. New medications initiated: Depakote ER 500 mg nightly Vraylar 1.5 mg today, then 3mg daily starting tomorrow Continue the following home medications: none The following PRN medications will be started as well: Vistaril 25 mg as needed anxiety, 50 mg as needed insomnia Cogentin 0.5 mg twice daily as needed EPS Ativan 1 mg every 6 hours as needed severe anxiety or agitation overall, I spent a total of 25 minutes on this patients care, including review of chart/records, direct evaluation of the patient, ordering medication, coordination with nursing, interdisciplinary team meeting, and documentation. Inventory Assets Strengths: Stable housing, outpatient providers, voluntary/seeking treatment Needs: chronically poor medication adherence, active psychosis, limited social supports Suicide Risk Level Suicide Risk Level: Moderate (q15 min suicide checks) Suicide Risk Level Comments: Risk factors include active psychosis, and patient reports suicidal ideation. He does report feeling safe on the unit, and can contact staff if symptoms worsen. Denies any intent or plan to hurt himself currently. Risk Factors Assessment Male: Yes : No Do You Have Access To A Gun?: No Health Problems: No Mental Health Diagnoses: Yes Substance Use Disorders: No Previous Attempt: Yes Family History of Suicide: No Previous Psychiatric Hospitalization: Yes Hopelessness: No Protective Factors Assessment Spiritism Beliefs: Yes : No Responsible for Young Children: No Employed: No Stable Relationships: No Supportive Family: No Interval History Identifying Information LEXII TEE is a 35-year-old M who currently lives in in an apartment with 1 roommate, has a history of schizophrenia, and was admitted on 07/03/25 00:26 on a 201 voluntary commitment for increased psychosis, and suicidal ideation. Chief Complaint "I'm fine". Review of Systems Sleep Information Total Hours of Sleep: 2.25 Sleep Comments: Admitted early in shift Meal Information Percent Meal Consumed - Breakfast: 100 Percent Meal Consumed - Lunch: 100 Percent Meal Consumed - Dinner: 100 Subjective Subjective Patient was seen & assessed and interval progress reviewed with [treatment team] [nursing and social work] per report: slept 2.5 hr pacing, offered meds but he declined paced frequently yesterday, actively responding stated he was "ok, just praying" attended several groups, without meaning participation mood 02/21 and "feeling good" did accept scheduled meds CM called yesterday - confirmed he was not completely closed out, despite his re quest I met with pt while walking halls, at his request. He said "I've just been praying a lot". Denied having worries or fears that he is praying about. Also said he is not trying to feel close to God. He could not identify a reason/goal for the prayers. He said he is doing well on his medications. Discussed that his BP has been elevated. He says he has never been on an antihypertensive and does not want to start one now. Denies any chest pain, SOB, headache or visual changes. He says he continues to hear voices but "it's getting better." Physical Exam Psychiatric Orientation: alert, oriented x 3 and + guarded Apperance: appropriately dressed and appropriately groomed Eye Contact: + poor eye contact Motor Behavior: steady gait and station and + psychomotor agitation; n EPS Speech: + pressured speech rapid speech Affect: + flat affect euthymic Thought Process: + tangential thought process and + looseness of associations Thought Content: + paranoid and + delusions Suicidal Thoughts: denies suicidal thoughts, denies suicidal plan and denies suicidal intent Homicidal Thoughts: denies homicidal thoughts, denies homicidal plan and denies homicidal intent Hallucinations: + auditory hallucinations and + visual hallucinations Cognition: + attention not intact Estimated Intelligence: consistent with education level Insight: + limited insight and + fair insight Judgment: + fair judgement Vital Signs (Past 24 Hours) Last Vital Signs Temp 36.7 C 07/06/25 06:26 Pulse 80 07/06/25 06:27 Resp 18 07/06/25 06:26 BP 142/104 H 07/06/25 06:27 Pulse Ox 99 07/03/25 01:00 O2 Del Method Room Air 07/03/25 01:00 A physical exam was performed in the ED by Dr Jesus Starks for the purposes of medical clearance. I accept that physical as correct and adequate for the purposes of the inpatient physical exam. Results & Data ([facility]) Current Inpatient Medications Current Inpatient Medications: Current Inpatient Medications Acetaminophen (Acetaminophen 325 Mg Tab) 650 mg PO Q4H PRN PRN Reason: Headache or Minor Fever Stop: 08/02/25 00:53 Al Hydrox/Mg Hydrox/Simethicone (Aluminum/Magnesium Susp 30 Ml Udc) 30 ml PO Q4H PRN PRN Reason: GI Upset Stop: 08/02/25 00:53 Aripiprazole (Aripiprazole 10 Mg Tab) 10 mg PO QAM LINO Stop: 08/05/25 08:59 Last Admin: 07/06/25 08:07 Dose: 10 mg Benztropine Mesylate (Benztropine Mesylate 0.5 Mg Tab) 0.5 mg PO BID PRN PRN Reason: EPS Stop: 08/02/25 15:38 Divalproex Sodium (Divalproex Extended Release 500 Mg Tab) 1,000 mg PO HS LINO Stop: 08/04/25 21:59 Last Admin: 07/05/25 21:49 Dose: 1,000 mg Hydroxyzine HCl (Hydroxyzine Hcl 25 Mg Tab) 50 mg PO HSZ PRN PRN Reason: Insomnia Stop: 08/02/25 00:53 Hydroxyzine HCl (Hydroxyzine Hcl 25 Mg Tab) 25 mg PO Q4H PRN PRN Reason: Anxiety Stop: 08/02/25 00:53 Lorazepam (Lorazepam 1 Mg Tab) 1 mg PO Q6H PRN PRN Reason: severe anxiety, or agitation Stop: 08/02/25 15:38 Magnesium Hydroxide (Magnesium Hydroxide Susp 30 Ml Udc) 30 ml PO DAILY PRN PRN Reason: Constipation Stop: 08/02/25 00:53 Metformin HCl (Metformin Hcl Er 500 Mg Tabcr) 500 mg PO DAILY@1745 LINO Stop: 08/04/25 17:44 Last Admin: 07/05/25 17:46 Dose: 500 mg Rosuvastatin Calcium (Rosuvastatin Calcium 5 Mg Tab) 5 mg PO QAM LINO Stop: 08/05/25 08:59 Last Admin: 07/06/25 08:07 Dose: 5 mg Sodium Chloride (Sodium Chloride 0.65% Na Soln 45 Ml ([place])) 1 - 2 sprays NA PRN PRN PRN Reason: Nasal Dryness/Congestion Stop: 08/02/25 00:53 Trazodone HCl (Trazodone Hcl 50 Mg Tab) 50 mg PO HS PRN PRN Reason: Insomnia Stop: 08/02/25 21:59 Mental Health & Subst Abuse Tx Therapist Name of Therapist: None current Rn Placement Name of Rn Placement: None current
--- NOTE | 2025-07-07 09:00 | Psychiatric Progress Note ---
Date of Service July 07, 2025 Impression / Recommendations Tatianna TEE is a 35-year-old M who currently lives in in an apartment with 1 roommate, has a history of schizophrenia, and was admitted on 07/03/25 00:26 on a 201 voluntary commitment for increased psychosis, and suicidal ideation. I reviewed the records extensively, since this patient is previously known to [facility] psychiatry department from multiple past admissions. Does appear he has previously been diagnosed with schizophrenia. Interestingly, he says "Caplyta was working perfectly, until I stopped sleeping." He also has a notable pressure and energy to his speech and presentation today. I am questioning whether this could reflect some manic fluctuation in his mood, given it is fall, and it this could have spurred up more paranoia despite being consistent on his medication. Another possibility on the differential though, is that he actually was not adherent with his medication, which would be consistent with previous. Finally, it his last admission, Caplyta appeared to not be sufficient for stabilization for him, and he was changed over to Haldol DEC and Abilify. Is unclear at this point why he was put back on Caplyta by his outpatient providers, but it would be helpful to obtain that information. A: start trazodone nightly for sleep and increase Abilify to 15mg. I will schedule the dose, since he tends to not except PRNs. Ordered labs for a.m. including CMP and valproic acid level. Working closely with social work. He has no insurance and that presents a challenge Regarding outpatient follow- up. He has also been declined by a few local areas, and he himself declines working with another. The hope is that as he improves, he will have less paranoia and agreed to go back to his previous CM provider at least. They have confirmed that they did not officially closed him. (1) Schizoaffective disorder: Plan 07/07/25: add trazodone nightly scheduled, increase Abilify to 15, and obtain Depakote labs in AM. 07/06/25: continue current meds and treatment 07/05/25: - Increase depakote ER to 1000mg HS - Continue abilify 10mg as planned. - Start metformin and rosuvastatin - he was previously on these, and fasting labs showed both elevated A1C and elevated total cholesterol. 10/21/25: DC Caplyta start Abilify 5 mg continue Depakote at 500 for today 07/03/25: The patient was admitted to the [facility] ([facility] mental health unit) on q15 min checks (behavioral with suicide precautions) for safety. The patient will participate in group, recreational, and milieu therapies and will be offered additional individual and family sessions as clinically appropriate. New medications initiated: Depakote ER 500 mg nightly Vraylar 1.5 mg today, then 3mg daily starting tomorrow Continue the following home medications: none The following PRN medications will be started as well: Vistaril 25 mg as needed anxiety, 50 mg as needed insomnia Cogentin 0.5 mg twice daily as needed EPS Ativan 1 mg every 6 hours as needed severe anxiety or agitation overall, I spent a total of 35 minutes on this patients care, including review of chart/records, direct evaluation of the patient, ordering medication, coordination with nursing, interdisciplinary team meeting, and documentation. Inventory Assets Strengths: Stable housing, outpatient providers, voluntary/seeking treatment Needs: chronically poor medication adherence, active psychosis, limited social supports Suicide Risk Level Suicide Risk Level: Moderate (q15 min suicide checks) Suicide Risk Level Comments: Risk factors include active psychosis, and patient reports suicidal ideation. He does report feeling safe on the unit, and can contact staff if symptoms worsen. Denies any intent or plan to hurt himself currently. Risk Factors Assessment Male: Yes : No Do You Have Access To A Gun?: No Health Problems: No Mental Health Diagnoses: Yes Substance Use Disorders: No Previous Attempt: Yes Family History of Suicide: No Previous Psychiatric Hospitalization: Yes Hopelessness: No Protective Factors Assessment Amish Beliefs: Yes : No Responsible for Young Children: No Employed: No Stable Relationships: No Supportive Family: No Interval History Identifying Information LEXII TEE is a 35-year-old M who currently lives in in an apartment with 1 roommate, has a history of schizophrenia, and was admitted on 07/03/25 00:26 on a 201 voluntary commitment for increased psychosis, and suicidal ideation. Chief Complaint " the meds are actually helping". Review of Systems Sleep Information Total Hours of Sleep: 3.25 Sleep Comments: Admitted early in shift Meal Information Percent Meal Consumed - Breakfast: 100 Percent Meal Consumed - Lunch: 100 Percent Meal Consumed - Dinner: 75 Subjective Subjective Patient was seen & assessed and interval progress reviewed with treatment team per report: sleep 3hr, broken offerred PRNs and declined pacing and walking halls, responding does not appear to be distressed difficult to have a meaningful convo with him showers twice a day rated mood 02/21 and "I don't know" Patient continues to report he slept well, despite the logs showing he only had a few hours of broken sleep. He believes the medications are helping, and denies any side effects from it. He is not feeling sedated. Denies tremor or any abnormal movements. Denies any stomach upset or headache. He is agreeable to getting labs in the morning. He says he starting to feel well, and is having some insight into one of the hallucinations he had before admission. Continues to be distracted by internal stimuli, and talks quickly with some stammering, which I am told is his chronic baseline. Continues to pace the halls, pointing and responding to stimuli to himself. He has attended some groups, and has variable participation in those. He denies any suicidal ideation. He has not been agitated and does not make any homicidal statements either. Physical Exam Psychiatric Orientation: alert, oriented x 3 and + guarded Apperance: appropriately dressed and appropriately groomed Eye Contact: + poor eye contact Motor Behavior: steady gait and station, no abnormal motor movements and + psychomotor agitation; n EPS Speech: + pressured speech Affect: + blunted affect Mood: no depressed mood, no anxious mood and no irritable mood Euthymic Thought Process: + tangential thought process and + looseness of associations Thought Content: + delusions Suicidal Thoughts: denies suicidal thoughts, denies suicidal plan and denies suicidal intent Homicidal Thoughts: denies homicidal thoughts, denies homicidal plan and denies homicidal intent Hallucinations: + auditory hallucinations and + visual hallucinations Cognition: recent memory grossly intact, remote memory grossly intact and language grossly intact; + attention not intact Estimated Intelligence: consistent with education level Insight: + fair insight Judgment: + fair judgement Vital Signs (Past 24 Hours) Last Vital Signs Temp 36.3 C L 07/07/25 06:25 Pulse 83 07/07/25 06:25 Resp 16 07/07/25 06:25 BP 140/87 07/07/25 06:25 Pulse Ox 99 07/03/25 01:00 O2 Del Method Room Air 07/03/25 01:00 Results & Data ([facility]) Current Inpatient Medications Current Inpatient Medications: Current Inpatient Medications Acetaminophen (Acetaminophen 325 Mg Tab) 650 mg PO Q4H PRN PRN Reason: Headache or Minor Fever Stop: 08/02/25 00:53 Al Hydrox/Mg Hydrox/Simethicone (Aluminum/Magnesium Susp 30 Ml Udc) 30 ml PO Q4H PRN PRN Reason: GI Upset Stop: 08/02/25 00:53 Aripiprazole (Aripiprazole 10 Mg Tab) 10 mg PO QAM LINO Stop: 08/05/25 08:59 Last Admin: 07/07/25 08:34 Dose: 10 mg Benztropine Mesylate (Benztropine Mesylate 0.5 Mg Tab) 0.5 mg PO BID PRN PRN Reason: EPS Stop: 08/02/25 15:38 Divalproex Sodium (Divalproex Extended Release 500 Mg Tab) 1,000 mg PO HS LINO Stop: 08/04/25 21:59 Last Admin: 07/06/25 21:56 Dose: 1,000 mg Hydroxyzine HCl (Hydroxyzine Hcl 25 Mg Tab) 50 mg PO HSZ PRN PRN Reason: Insomnia Stop: 08/02/25 00:53 Hydroxyzine HCl (Hydroxyzine Hcl 25 Mg Tab) 25 mg PO Q4H PRN PRN Reason: Anxiety Stop: 08/02/25 00:53 Lorazepam (Lorazepam 1 Mg Tab) 1 mg PO Q6H PRN PRN Reason: severe anxiety, or agitation Stop: 08/02/25 15:38 Magnesium Hydroxide (Magnesium Hydroxide Susp 30 Ml Udc) 30 ml PO DAILY PRN PRN Reason: Constipation Stop: 08/02/25 00:53 Metformin HCl (Metformin Hcl Er 500 Mg Tabcr) 500 mg PO DAILY@1745 LINO Stop: 08/04/25 17:44 Last Admin: 07/06/25 17:29 Dose: 500 mg Rosuvastatin Calcium (Rosuvastatin Calcium 5 Mg Tab) 5 mg PO QAM LINO Stop: 08/05/25 08:59 Last Admin: 07/07/25 08:34 Dose: 5 mg Sodium Chloride (Sodium Chloride 0.65% Na Soln 45 Ml ([place])) 1 - 2 sprays NA PRN PRN PRN Reason: Nasal Dryness/Congestion Stop: 08/02/25 00:53 Trazodone HCl (Trazodone Hcl 50 Mg Tab) 50 mg PO HS PRN PRN Reason: Insomnia Stop: 08/02/25 21:59 Mental Health & Subst Abuse Tx Therapist Name of Therapist: None current Wallboard Worker Name of Wallboard Worker: None current
[2025-07-08 07:59] LABS: Anion Gap 5.0 (3-11); Blood Urea Nitrogen 15.0 mg/dl (6-23); Calcium 9.4 mg/dl (8.6-10.3); Carbon Dioxide 31.0 mmol/L (21-32); Chloride 101.0 mmol/L (98-107); Creatinine Clr Calc Pharmacy 146.4 ml/min; Glucose 89.0 mg/dl (70-99(Fasting)); Potassium 4.1 mmol/L (3.5-5.1); Sodium 137.0 mmol/L (136-145)
[2025-07-08] MEDS: ARIPiprazole 15 MG TAB PO SCH (08:05)
[2025-07-08 08:29] LABS: Alanine Aminotransferase 29.0 U/L (7-52); Albumin Globulin Ratio 1.0 (0.9-2); Albumin Level 3.7 gm/dl (3.4-5.0); Alkaline Phosphatase 58.0 U/L (34-104); Bilirubin,Total 0.4 mg/dl (0.2-1.0); Globulin 3.7 gm/dl (2.5-4.0); Total Protein 7.4 gm/dl (6.0-8.3)
--- NOTE | 2025-07-08 09:46 | Psychiatric Progress Note ---
Date of Service July 08, 2025 Impression / Recommendations Tatianna TEE is a 35-year-old M who currently lives in in an apartment with 1 roommate, has a history of schizophrenia, and was admitted on 07/03/25 00:26 on a 201 voluntary commitment for increased psychosis, and suicidal ideation. I reviewed the records extensively, since this patient is previously known to [facility] psychiatry department from multiple past admissions. Does appear he has previously been diagnosed with schizophrenia. Interestingly, he says "Caplyta was working perfectly, until I stopped sleeping." He also has a notable pressure and energy to his speech and presentation today. I am questioning whether this could reflect some manic fluctuation in his mood, given it is fall, and it this could have spurred up more paranoia despite being consistent on his medication. Another possibility on the differential though, is that he actually was not adherent with his medication, which would be consistent with previous. Finally, it his last admission, Caplyta appeared to not be sufficient for stabilization for him, and he was changed over to Haldol DEC and Abilify. Is unclear at this point why he was put back on Caplyta by his outpatient providers, but it would be helpful to obtain that information. A: Ongoing psychosis with paranoia and hallucinations. Continues to have very poor sleep despite trial with trazodone. Discussed medication treatment options in detail. Discussed risks, benefits and alternatives. He consents to starting doxepin as off-label use for insomnia. Reviewed side effects including but not limited to: sedation, dry mouth, constipation, dizziness, weight gain. He's tolerating abilify and depakote so far. Labwork reviewed and CMP is stable (AST still pending) and Depakote level of 74 and within target range for therapeutic effect. Significant psychosocial stressors given lack of insurance and outpatient options. Overall, I spent a total of 38 minutes on this case including meeting with the patient, reviewing the chart, nursing report, multidisciplinary team meeting, orders, and documentation. (1) Schizoaffective disorder: Plan 07/08/2025: -discontinue trazodone -Start doxepin 10mg HS 07/07/25: add trazodone nightly scheduled, increase Abilify to 15, and obtain Depakote labs in AM. 07/06/25: continue current meds and treatment 07/05/25: - Increase depakote ER to 1000mg HS - Continue abilify 10mg as planned. - Start metformin and rosuvastatin - he was previously on these, and fasting labs showed both elevated A1C and elevated total cholesterol. 07/04/25: DC Caplyta start Abilify 5 mg continue Depakote at 500 for today 07/03/25: The patient was admitted to the [facility] ([facility] health unit) on q15 min checks (behavioral with suicide precautions) for safety. The patient will participate in group, recreational, and milieu therapies and will be offered additional individual and family sessions as clinically appropriate. New medications initiated: Depakote ER 500 mg nightly Vraylar 1.5 mg today, then 3mg daily starting tomorrow Continue the following home medications: none The following PRN medications will be started as well: Vistaril 25 mg as needed anxiety, 50 mg as needed insomnia Cogentin 0.5 mg twice daily as needed EPS Ativan 1 mg every 6 hours as needed severe anxiety or agitation overall, I spent a total of 35 minutes on this patients care, including review of chart/records, direct evaluation of the patient, ordering medication, coordination with nursing, interdisciplinary team meeting, and documentation. Inventory Assets Strengths: Stable housing, outpatient providers, voluntary/seeking treatment Needs: chronically poor medication adherence, active psychosis, limited social supports Suicide Risk Level Suicide Risk Level: Moderate (q15 min suicide checks) (psychosis and references recent sleep medication use was a suicide attempt however denies current SI and is future oriented but disorganized behaviors, however feels safe in the hospital and feels able to ask staff for support if needed) Risk Factors Assessment Male: Yes : No Do You Have Access To A Gun?: No Health Problems: No Mental Health Diagnoses: Yes Substance Use Disorders: No Previous Attempt: Yes Family History of Suicide: No Previous Psychiatric Hospitalization: Yes Hopelessness: No Protective Factors Assessment Gnosticist Beliefs: Yes : No Responsible for Young Children: No Employed: No Stable Relationships: No Supportive Family: No Interval History Identifying Information LEXII TEE is a 35-year-old M who currently lives in in an apartment with 1 roommate, has a history of schizophrenia, and was admitted on 07/03/25 00:26 on a 201 voluntary commitment for increased psychosis, and suicidal ideation. Chief Complaint "I wasn't seeing clearly". Review of Systems Sleep Information Total Hours of Sleep: 2.75 Sleep Comments: Meal Information Percent Meal Consumed - Breakfast: 100 Percent Meal Consumed - Lunch: 100 Percent Meal Consumed - Dinner: 50 Subjective Subjective Patient was seen & assessed and interval progress reviewed with nursing. Hardly slept overnight. Continues to respond to internal stimuli with pointing and talking to himself. States that he is here because "I could not sleep" and explains that he went to the pharmacy and asked for sleeping pills and took these for a while which he considers "I overdosed on sleeping pills so I consider that a suicide attempt". He cannot speak to intent in taking the sleeping pills as it does not seem he was intending to but rather just wanted to sleep so he could get back to work. He speaks about visual hallucinations as he felt that the Caplyta was not working as well for him. Tells me "I saw someone who told me A white woman Wanted to be with a black man so I poured water on her and she called the police" he speaks in a somewhat rambling and soft way so it is hard to get further details but he mentions being worried about legal charges and struggling to get medical assistance because he never had his green card shipped to the correct address and has not been able to sort this out. He would like to get back to work soon because he has not been able to work in over a month and worries that without getting back to work he will not be able to afford his rent. Discussed potential medication options he consents to starting doxepin. He denies any current medication side effects. Physical Exam Psychiatric Orientation: alert, oriented x 3 and + guarded Apperance: appropriately dressed and appropriately groomed Eye Contact: + poor eye contact Motor Behavior: steady gait and station, no abnormal motor movements and + psychomotor agitation; n EPS Speech: + pressured speech (soft, mumbled) Affect: + blunted affect Mood: + anxious mood Thought Process: + tangential thought process and + looseness of associations Thought Content: + delusions Suicidal Thoughts: denies suicidal thoughts, denies suicidal plan and denies suicidal intent Homicidal Thoughts: denies homicidal thoughts, denies homicidal plan and denies homicidal intent Hallucinations: + auditory hallucinations and + visual hallucinations Cognition: recent memory grossly intact, remote memory grossly intact and language grossly intact; + attention not intact Estimated Intelligence: consistent with education level Insight: + limited insight Judgment: + limited judgement Vital Signs (Past 24 Hours) Last Vital Signs Temp 36.3 C L 07/08/25 06:43 Pulse 96 H 07/08/25 06:43 Resp 18 07/08/25 06:43 BP 130/78 07/08/25 06:45 Pulse Ox 100 07/08/25 06:43 O2 Del Method Room Air 07/08/25 06:43 Results & Data ([facility]) Laboratory Results Laboratory Results - last 24 hr 07/08/25 07:20 Sodium 137 Potassium 4.1 Chloride 101 Carbon Dioxide 31 Anion Gap 5 BUN 15 Creatinine 0.98 Est Cr Clr Drug Dosing 146.4 eGFR 104.42 BUN/Creatinine Ratio 15.3 Glucose 89 Calcium 9.4 Total Bilirubin 0.4 AST Pending ALT 29 Alkaline Phosphatase 58 Total Protein 7.4 Albumin 3.7 Globulin 3.7 Albumin/Globulin Ratio 1.0 Valproic Acid Pending Current Inpatient Medications Current Inpatient Medications: Current Inpatient Medications Acetaminophen (Acetaminophen 325 Mg Tab) 650 mg PO Q4H PRN PRN Reason: Headache or Minor Fever Stop: 08/02/25 00:53 Al Hydrox/Mg Hydrox/Simethicone (Aluminum/Magnesium Susp 30 Ml Udc) 30 ml PO Q4H PRN PRN Reason: GI Upset Stop: 08/02/25 00:53 Aripiprazole (Aripiprazole 15 Mg Tab) 15 mg PO QAM LINO Stop: 08/07/25 08:59 Last Admin: 07/08/25 08:05 Dose: 15 mg Benztropine Mesylate (Benztropine Mesylate 0.5 Mg Tab) 0.5 mg PO BID PRN PRN Reason: EPS Stop: 08/02/25 15:38 Divalproex Sodium (Divalproex Extended Release 500 Mg Tab) 1,000 mg PO HS LINO Stop: 08/04/25 21:59 Last Admin: 07/07/25 21:22 Dose: 1,000 mg Hydroxyzine HCl (Hydroxyzine Hcl 25 Mg Tab) 50 mg PO HSZ PRN PRN Reason: Insomnia Stop: 08/02/25 00:53 Hydroxyzine HCl (Hydroxyzine Hcl 25 Mg Tab) 25 mg PO Q4H PRN PRN Reason: Anxiety Stop: 08/02/25 00:53 Lorazepam (Lorazepam 1 Mg Tab) 1 mg PO Q6H PRN PRN Reason: severe anxiety, or agitation Stop: 08/02/25 15:38 Magnesium Hydroxide (Magnesium Hydroxide Susp 30 Ml Udc) 30 ml PO DAILY PRN PRN Reason: Constipation Stop: 08/02/25 00:53 Metformin HCl (Metformin Hcl Er 500 Mg Tabcr) 500 mg PO DAILY@1745 [facility] Stop: 08/04/25 17:44 Last Admin: 07/07/25 17:36 Dose: 500 mg Rosuvastatin Calcium (Rosuvastatin Calcium 5 Mg Tab) 5 mg PO QAM LINO Stop: 08/05/25 08:59 Last Admin: 07/08/25 08:05 Dose: 5 mg Sodium Chloride (Sodium Chloride 0.65% Na Soln 45 Ml ([place])) 1 - 2 sprays NA PRN PRN PRN Reason: Nasal Dryness/Congestion Stop: 08/02/25 00:53 Trazodone HCl (Trazodone Hcl 50 Mg Tab) 50 mg PO HS [facility] Stop: 08/06/25 21:59 Last Admin: 07/07/25 21:22 Dose: 50 mg Mental Health & Subst Abuse Tx Therapist Name of Therapist: None current Belt Cutter Name of Belt Cutter: None current
[2025-07-08] MEDS: DOXEPIN HCL 10 MG CAPSULE PO SCH (21:29)
[2025-07-08] MEDS: LORazepam 1 MG TAB PO PRN (22:27)
--- NOTE | 2025-07-09 09:08 | Psychiatric Progress Note ---
Date of Service July 09, 2025 Impression / Recommendations Tatianna TEE is a 35-year-old M who currently lives in in an apartment with 1 roommate, has a history of schizophrenia, and was admitted on 07/03/25 00:26 on a 201 voluntary commitment for increased psychosis, and suicidal ideation. I reviewed the records extensively, since this patient is previously known to [facility] psychiatry department from multiple past admissions. Does appear he has previously been diagnosed with schizophrenia. Interestingly, he says "Caplyta was working perfectly, until I stopped sleeping." He also has a notable pressure and energy to his speech and presentation today. I am questioning whether this could reflect some manic fluctuation in his mood, given it is fall, and it this could have spurred up more paranoia despite being consistent on his medication. Another possibility on the differential though, is that he actually was not adherent with his medication, which would be consistent with previous. Finally, it his last admission, Caplyta appeared to not be sufficient for stabilization for him, and he was changed over to Haldol DEC and Abilify. Is unclear at this point why he was put back on Caplyta by his outpatient providers, but it would be helpful to obtain that information. A: Ongoing psychosis with paranoia and hallucinations but slightly less today after sleeping more last night. Will continue with Abilify titration as he is unwilling to consider risperidone at this time (benefit of more dosing options i.e. eventual CONDE q6 months which would be ideal with his limited options for outpatient follow-up). Sleeping more with doxepin addition. Overall, I spent a total of 35 minutes on this case including meeting with the patient, reviewing the chart, nursing report, multidisciplinary team meeting, orders, and documentation. (1) Schizoaffective disorder: Plan 07/09/2025: -Increase abilify to 20mg daily tomorrow 07/08/2025: -discontinue trazodone -Start doxepin 10mg HS 07/07/25: add trazodone nightly scheduled, increase Abilify to 15, and obtain Depakote labs in AM. 07/06/25: continue current meds and treatment 07/05/25: - Increase depakote ER to 1000mg HS - Continue abilify 10mg as planned. - Start metformin and rosuvastatin - he was previously on these, and fasting labs showed both elevated A1C and elevated total cholesterol. 07/04/25: DC Caplyta start Abilify 5 mg continue Depakote at 500 for today 07/03/25: The patient was admitted to the [facility] ([facility] mental health unit) on q15 min checks (behavioral with suicide precautions) for safety. The patient will participate in group, recreational, and milieu therapies and will be offered additional individual and family sessions as clinically appropriate. New medications initiated: Depakote ER 500 mg nightly Vraylar 1.5 mg today, then 3mg daily starting tomorrow Continue the following home medications: none The following PRN medications will be started as well: Vistaril 25 mg as needed anxiety, 50 mg as needed insomnia Cogentin 0.5 mg twice daily as needed EPS Ativan 1 mg every 6 hours as needed severe anxiety or agitation Inventory Assets Strengths: Stable housing, outpatient providers, voluntary/seeking treatment Needs: chronically poor medication adherence, active psychosis, limited social supports Suicide Risk Level Suicide Risk Level: Moderate (q15 min suicide checks) (psychosis and references recent sleep medication use was a suicide attempt however denies current SI and is future oriented but disorganized behaviors, however feels safe in the hospital and feels able to ask staff for support if needed) Suicide Risk Level Comments: Risk Factors Assessment Male: Yes : No Do You Have Access To A Gun?: No Health Problems: No Mental Health Diagnoses: Yes Substance Use Disorders: No Previous Attempt: Yes Family History of Suicide: No Previous Psychiatric Hospitalization: Yes Hopelessness: No Protective Factors Assessment Amish Beliefs: Yes : No Responsible for Young Children: No Employed: No Stable Relationships: No Supportive Family: No Interval History Identifying Information LEXII TEE is a 35-year-old M who currently lives in in an apartment with 1 roommate, has a history of schizophrenia, and was admitted on 07/03/25 00:26 on a 201 voluntary commitment for increased psychosis, and suicidal ideation. Chief Complaint "Good". Review of Systems Sleep Information Total Hours of Sleep: 6 Meal Information Percent Meal Consumed - Breakfast: 100 Percent Meal Consumed - Lunch: 100 Percent Meal Consumed - Dinner: 100 Subjective Subjective Patient was seen & assessed and interval progress reviewed with nursing and social work. Continues to walk laps and respond to internal stimuli. Attended community meeting and rated his mood as 6.5 and "in between". Did sleep more with Vistaril and ativan prn at HS and doxepin. Awake briefly for a snack. Reports his mood is "good" today and agrees he slept better. Denies any medication side effects. he remains willing to consider Abilify CONDE as he's ronnie en Abilify before. He's not willing to consider risperidone CONDE options as he doesn't trust this due to not having taken it before. He's willing to continue with Abilify titration. Physical Exam Psychiatric Orientation: alert, oriented x 3 and + guarded Apperance: appropriately dressed and appropriately groomed Eye Contact: + fair eye contact Motor Behavior: steady gait and station, no abnormal motor movements and + psychomotor agitation; n EPS Speech: + abnormal rate/rhythm/volume of speech (soft, mumbled) Affect: + blunted affect Mood: + anxious mood Thought Process: + concrete thought process Thought Content: + delusions Suicidal Thoughts: denies suicidal thoughts, denies suicidal plan and denies suicidal intent Homicidal Thoughts: denies homicidal thoughts, denies homicidal plan and denies homicidal intent Hallucinations: + auditory hallucinations and + visual hallucinations Cognition: recent memory grossly intact, remote memory grossly intact and language grossly intact; + attention not intact Estimated Intelligence: consistent with education level Insight: + limited insight Judgment: + limited judgement Vital Signs (Past 24 Hours) Last Vital Signs Temp 36.6 C 07/09/25 04:54 Pulse 83 07/09/25 04:54 Resp 16 07/09/25 04:54 BP 123/76 07/09/25 04:54 Pulse Ox 97 07/09/25 04:54 O2 Del Method Room Air 07/09/25 04:54 Results & Data ([facility]) Laboratory Results Laboratory Results - last 24 hr 07/08/25 07:20 AST 36 Valproic Acid 74 Current Inpatient Medications Current Inpatient Medications: Current Inpatient Medications Acetaminophen (Acetaminophen 325 Mg Tab) 650 mg PO Q4H PRN PRN Reason: Headache or Minor Fever Stop: 08/02/25 00:53 Al Hydrox/Mg Hydrox/Simethicone (Aluminum/Magnesium Susp 30 Ml Udc) 30 ml PO Q4H PRN PRN Reason: GI Upset Stop: 08/02/25 00:53 Aripiprazole (Aripiprazole 15 Mg Tab) 15 mg PO QAM LINO Stop: 08/07/25 08:59 Last Admin: 07/09/25 08:41 Dose: 15 mg Benztropine Mesylate (Benztropine Mesylate 0.5 Mg Tab) 0.5 mg PO BID PRN PRN Reason: EPS Stop: 08/02/25 15:38 Divalproex Sodium (Divalproex Extended Release 500 Mg Tab) 1,000 mg PO HS LINO Stop: 08/04/25 21:59 Last Admin: 07/08/25 21:29 Dose: 1,000 mg Doxepin HCl (Doxepin Hcl 10 Mg Capsule) 10 mg PO HS@2130 LINO Stop: 08/07/25 21:29 Last Admin: 07/08/25 21:29 Dose: 10 mg Hydroxyzine HCl (Hydroxyzine Hcl 25 Mg Tab) 50 mg PO HSZ PRN PRN Reason: Insomnia Stop: 08/02/25 00:53 Last Admin: 07/08/25 21:33 Dose: 50 mg Hydroxyzine HCl (Hydroxyzine Hcl 25 Mg Tab) 25 mg PO Q4H PRN PRN Reason: Anxiety Stop: 08/02/25 00:53 Lorazepam (Lorazepam 1 Mg Tab) 1 mg PO Q6H PRN PRN Reason: severe anxiety, or agitation Stop: 08/02/25 15:38 Last Admin: 07/08/25 22:27 Dose: 1 mg Magnesium Hydroxide (Magnesium Hydroxide Susp 30 Ml Udc) 30 ml PO DAILY PRN PRN Reason: Constipation Stop: 08/02/25 00:53 Metformin HCl (Metformin Hcl Er 500 Mg Tabcr) 500 mg PO DAILY@1745 [facility] Stop: 08/04/25 17:44 Last Admin: 07/08/25 17:21 Dose: 500 mg Rosuvastatin Calcium (Rosuvastatin Calcium 5 Mg Tab) 5 mg PO QAM LINO Stop: 08/05/25 08:59 Last Admin: 07/09/25 08:41 Dose: 5 mg Sodium Chloride (Sodium Chloride 0.65% Na Soln 45 Ml ([place])) 1 - 2 sprays NA PRN PRN PRN Reason: Nasal Dryness/Congestion Stop: 08/02/25 00:53 Mental Health & Subst Abuse Tx Therapist Name of Therapist: None current Wigs Salesperson Name of Wigs Salesperson: None current
--- NOTE | 2025-07-10 08:57 | Psychiatric Progress Note ---
Date of Service July 10, 2025 Impression / Recommendations Tatianna TEE is a 35-year-old M who currently lives in in an apartment with 1 roommate, has a history of schizophrenia, and was admitted on 07/03/25 00:26 on a 201 voluntary commitment for increased psychosis, and suicidal ideation. I reviewed the records extensively, since this patient is previously known to [facility] psychiatry department from multiple past admissions. Does appear he has previously been diagnosed with schizophrenia. Interestingly, he says "Caplyta was working perfectly, until I stopped sleeping." He also has a notable pressure and energy to his speech and presentation today. I am questioning whether this could reflect some manic fluctuation in his mood, given it is fall, and it this could have spurred up more paranoia despite being consistent on his medication. Another possibility on the differential though, is that he actually was not adherent with his medication, which would be consistent with previous. Finally, it his last admission, Caplyta appeared to not be sufficient for stabilization for him, and he was changed over to Haldol DEC and Abilify. Is unclear at this point why he was put back on Caplyta by his outpatient providers, but it would be helpful to obtain that information. A: Ongoing psychosis with paranoia and hallucinations. Will start Klonopin at bedtime to help with sleep, he consents to this. Reviewed side effects including but not limited to: sedation, addictive potential, dizziness, falls. BP and HR slightly elevated, he denies any symptoms related to this, will continue to monitor. No signs of respiratory distress with walking laps. Overall, I spent a total of 28 minutes on this case including meeting with the patient, reviewing the chart, nursing report, multidisciplinary team meeting, orders, and documentation. (1) Schizoaffective disorder: Plan 07/10/2025: -Start Klonopin 1mg HS 07/09/2025: -Increase abilify to 20mg daily tomorrow 07/08/2025: -discontinue trazodone -Start doxepin 10mg HS 07/07/25: add trazodone nightly scheduled, increase Abilify to 15, and obtain Depakote labs in AM. 07/06/25: continue current meds and treatment 07/05/25: - Increase depakote ER to 1000mg HS - Continue abilify 10mg as planned. - Start metformin and rosuvastatin - he was previously on these, and fasting labs showed both elevated A1C and elevated total cholesterol. 07/04/25: DC Caplyta start Abilify 5 mg continue Depakote at 500 for today 07/03/25: The patient was admitted to the [facility] ([facility]) on q15 min checks (behavioral with suicide precautions) for safety. The patient will participate in group, recreational, and milieu therapies and will be offered additional individual and family sessions as clinically appropriate. New medications initiated: Depakote ER 500 mg nightly Vraylar 1.5 mg today, then 3mg daily starting tomorrow Continue the following home medications: none The following PRN medications will be started as well: Vistaril 25 mg as needed anxiety, 50 mg as needed insomnia Cogentin 0.5 mg twice daily as needed EPS Ativan 1 mg every 6 hours as needed severe anxiety or agitation Inventory Assets Strengths: Stable housing, outpatient providers, voluntary/seeking treatment Needs: chronically poor medication adherence, active psychosis, limited social supports Suicide Risk Level Suicide Risk Level: Moderate (q15 min suicide checks) (psychosis and references recent sleep medication use was a suicide attempt however denies current SI and is future oriented but disorganized behaviors, however feels safe in the hospital and feels able to ask staff for support if needed) Suicide Risk Level Comments: Risk Factors Assessment Male: Yes : No Do You Have Access To A Gun?: No Health Problems: No Mental Health Diagnoses: Yes Substance Use Disorders: No Previous Attempt: Yes Family History of Suicide: No Previous Psychiatric Hospitalization: Yes Hopelessness: No Protective Factors Assessment Rastafarian Beliefs: Yes : No Responsible for Young Children: No Employed: No Stable Relationships: No Supportive Family: No Interval History Identifying Information LEXII TEE is a 35-year-old M who currently lives in in an apartment with 1 roommate, has a history of schizophrenia, and was admitted on 07/03/25 00:26 on a 201 voluntary commitment for increased psychosis, and suicidal ideation. Chief Complaint "Ok". Review of Systems Sleep Information Total Hours of Sleep: 6 Meal Information Percent Meal Consumed - Breakfast: 100 Percent Meal Consumed - Lunch: 100 Percent Meal Consumed - Dinner: 100 Subjective Subjective Patient was seen & assessed and interval progress reviewed with treatment team. Last evening was making more eye contact and conversing more with staff. Reported some anxiety about returning to work. Attending groups and rated his mood as "not that happy". Showered. Was awake at times overnight, pacing and responding to internal stimuli. Today harder to follow, speaking slightly more rapidly. States he slept ok. De nies any side effects from the Abilify, he's willing for further titration. Accuses his past outpatient case planner of losing his asylum paperwork "they lost the proof" and explains this is the reason he's been delayed in getting Medicaid. He does feel he could travel outside of [facility] to get healthcare if needed in looking for option for sliding scale fee. later observed pacing and speaking to himself and gesturing frantically with his hands. Physical Exam Psychiatric Orientation: alert, oriented x 3 and + guarded Apperance: appropriately dressed and appropriately groomed Eye Contact: + fair eye contact Motor Behavior: steady gait and station, no abnormal motor movements and + psychomotor agitation; n EPS Speech: + abnormal rate/rhythm/volume of speech (soft, mumbled) Affect: + blunted affect Mood: + anxious mood Thought Process: + concrete thought process Thought Content: + paranoid and + delusions Suicidal Thoughts: denies suicidal thoughts, denies suicidal plan and denies suicidal intent Homicidal Thoughts: denies homicidal thoughts, denies homicidal plan and denies homicidal intent Hallucinations: + auditory hallucinations and + visual hallucinations Cognition: recent memory grossly intact, remote memory grossly intact and language grossly intact; + attention not intact Estimated Intelligence: consistent with education level Insight: + limited insight Judgment: + limited judgement Vital Signs (Past 24 Hours) Last Vital Signs Temp 36.8 C 07/10/25 03:40 Pulse 101 H 07/10/25 03:40 Resp 16 07/10/25 03:40 BP 146/97 H 07/10/25 03:40 Pulse Ox 97 07/10/25 03:40 O2 Del Method Room Air 07/10/25 03:40 Results & Data ([facility]) Current Inpatient Medications Current Inpatient Medications: Current Inpatient Medications Acetaminophen (Acetaminophen 325 Mg Tab) 650 mg PO Q4H PRN PRN Reason: Headache or Minor Fever Stop: 08/02/25 00:53 Al Hydrox/Mg Hydrox/Simethicone (Aluminum/Magnesium Susp 30 Ml Udc) 30 ml PO Q4H PRN PRN Reason: GI Upset Stop: 08/02/25 00:53 Aripiprazole (Aripiprazole 10 Mg Tab) 20 mg PO QAM [facility] Stop: 08/09/25 08:59 Last Admin: 07/10/25 08:17 Dose: 20 mg Benztropine Mesylate (Benztropine Mesylate 0.5 Mg Tab) 0.5 mg PO BID PRN PRN Reason: EPS Stop: 08/02/25 15:38 Divalproex Sodium (Divalproex Extended Release 500 Mg Tab) 1,000 mg PO HS [facility] Stop: 08/04/25 21:59 Last Admin: 07/09/25 20:50 Dose: 1,000 mg Doxepin HCl (Doxepin Hcl 10 Mg Capsule) 10 mg PO HS@2130 [facility] Stop: 08/07/25 21:29 Last Admin: 07/09/25 20:50 Dose: 10 mg Hydroxyzine HCl (Hydroxyzine Hcl 25 Mg Tab) 50 mg PO HSZ PRN PRN Reason: Insomnia Stop: 08/02/25 00:53 Last Admin: 07/09/25 20:51 Dose: 50 mg Hydroxyzine HCl (Hydroxyzine Hcl 25 Mg Tab) 25 mg PO Q4H PRN PRN Reason: Anxiety Stop: 08/02/25 00:53 Lorazepam (Lorazepam 1 Mg Tab) 1 mg PO Q6H PRN PRN Reason: severe anxiety, or agitation Stop: 08/02/25 15:38 Last Admin: 07/09/25 20:51 Dose: 1 mg Magnesium Hydroxide (Magnesium Hydroxide Susp 30 Ml Udc) 30 ml PO DAILY PRN PRN Reason: Constipation Stop: 08/02/25 00:53 Metformin HCl (Metformin Hcl Er 500 Mg Tabcr) 500 mg PO DAILY@1745 [facility] Stop: 08/04/25 17:44 Last Admin: 07/09/25 17:05 Dose: 500 mg Rosuvastatin Calcium (Rosuvastatin Calcium 5 Mg Tab) 5 mg PO QAM [facility] Stop: 08/05/25 08:59 Last Admin: 07/10/25 08:17 Dose: 5 mg Sodium Chloride (Sodium Chloride 0.65% Na Soln 45 Ml ([place])) 1 - 2 sprays NA PRN PRN PRN Reason: Nasal Dryness/Congestion Stop: 08/02/25 00:53 Mental Health & Subst Abuse Tx Therapist Name of Therapist: None current Channel Machine Operator Name of Channel Machine Operator: None current
[2025-07-10] MEDS: clonazePAM 1 MG TAB PO SCH (21:02)
--- NOTE | 2025-07-11 09:04 | Psychiatric Progress Note ---
Date of Service July 11, 2025 Impression / Recommendations Tatianna TEE is a 35-year-old M who currently lives in in an apartment with 1 roommate, has a history of schizophrenia, and was admitted on 07/03/25 00:26 on a 201 voluntary commitment for increased psychosis, and suicidal ideation. I reviewed the records extensively, since this patient is previously known to [facility] psychiatry department from multiple past admissions. Does appear he has previously been diagnosed with schizophrenia. Interestingly, he says "Caplyta was working perfectly, until I stopped sleeping." He also has a notable pressure and energy to his speech and presentation today. I am questioning whether this could reflect some manic fluctuation in his mood, given it is fall, and it this could have spurred up more paranoia despite being consistent on his medication. Another possibility on the differential though, is that he actually was not adherent with his medication, which would be consistent with previous. Finally, it his last admission, Caplyta appeared to not be sufficient for stabilization for him, and he was changed over to Haldol DEC and Abilify. Is unclear at this point why he was put back on Caplyta by his outpatient providers, but it would be helpful to obtain that information. A: Ongoing psychosis with hallucinations but seems to have some lessening of paranoia. Slept poorly last night so discussed alternative options, he consents to starting Seroquel with goal of short-term use given he is already on Abilify. Reviewed risks of dual antipsychotics including but not limited to metabolic, cardiac, movement side effects and AIMS 0 and HbA1c/lipid panel previously done. Overall, I spent a total of 30 minutes on this case including meeting with the patient, reviewing the chart, nursing report, multidisciplinary team meeting, orders, and documentation. (1) Schizoaffective disorder: Plan 07/11/2025: -Discontinue Klonopin and doxepin. -Start Seroquel 300mg HS 07/10/2025: -Start Klonopin 1mg HS 07/09/2025: -Increase abilify to 20mg daily tomorrow 07/08/2025: -discontinue trazodone -Start doxepin 10mg HS 07/07/25: add trazodone nightly scheduled, increase Abilify to 15, and obtain Depakote labs in AM. 07/06/25: continue current meds and treatment 07/05/25: - Increase depakote ER to 1000mg HS - Continue abilify 10mg as planned. - Start metformin and rosuvastatin - he was previously on these, and fasting labs showed both elevated A1C and elevated total cholesterol. 07/04/25: DC Caplyta start Abilify 5 mg continue Depakote at 500 for today 07/03/25: The patient was admitted to the [facility] ([facility]) on q15 min checks (behavioral with suicide precautions) for safety. The patient will participate in group, recreational, and milieu therapies and will be offered additional individual and family sessions as clinically appropriate. New medications initiated: Depakote ER 500 mg nightly Vraylar 1.5 mg today, then 3mg daily starting tomorrow Continue the following home medications: none The following PRN medications will be started as well: Vistaril 25 mg as needed anxiety, 50 mg as needed insomnia Cogentin 0.5 mg twice daily as needed EPS Ativan 1 mg every 6 hours as needed severe anxiety or agitation Inventory Assets Strengths: Stable housing, outpatient providers, voluntary/seeking treatment Needs: chronically poor medication adherence, active psychosis, limited social supports Suicide Risk Level Suicide Risk Level: Moderate (q15 min suicide checks) (psychosis and references recent sleep medication use was a suicide attempt however denies current SI and is future oriented but disorganized behaviors, however feels safe in the spital and feels able to ask staff for support if needed) Suicide Risk Level Comments: Risk Factors Assessment Male: Yes : No Do You Have Access To A Gun?: No Health Problems: No Mental Health Diagnoses: Yes Substance Use Disorders: No Previous Attempt: Yes Family History of Suicide: No Previous Psychiatric Hospitalization: Yes Hopelessness: No Protective Factors Assessment Faith Beliefs: Yes : No Responsible for Young Children: No Employed: No Stable Relationships: No Supportive Family: No Interval History Identifying Information LEXII TEE is a 35-year-old M who currently lives in in an apartment with 1 roommate, has a history of schizophrenia, and was admitted on 07/03/25 00:26 on a 201 voluntary commitment for increased psychosis, and suicidal ideation. Chief Complaint "Ok, I need to get my rent". Review of Systems Sleep Information Total Hours of Sleep: 3 Meal Information Percent Meal Consumed - Breakfast: 100 Percent Meal Consumed - Lunch: 90 Percent Meal Consumed - Dinner: 100 Subjective Subjective Patient was seen & assessed and interval progress reviewed with nursing and social work. pacing, restless, responding to internal stimuli overnight. Only slept 3 hours. Today spends much of the day pacing and responding to internal stimuli. Tells me he needs to discharge soon to ensure he doesn't lose his apartment. At first states he's fine without sleeping then agrees to switch to Seroquel in effort to get more consistent sleep. No side effects so far from Abilify or Depakote. Physical Exam Psychiatric Orientation: alert, oriented x 3 and + guarded Apperance: appropriately dressed and appropriately groomed Eye Contact: + fair eye contact Motor Behavior: steady gait and station, no abnormal motor movements and + psychomotor agitation; n EPS Speech: + abnormal rate/rhythm/volume of speech (soft, mumbled) Affect: + blunted affect Mood: + anxious mood Thought Process: + concrete thought process Thought Content: + paranoid and + delusions Suicidal Thoughts: denies suicidal thoughts, denies suicidal plan and denies suicidal intent Homicidal Thoughts: denies homicidal thoughts, denies homicidal plan and denies homicidal intent Hallucinations: + auditory hallucinations and + visual hallucinations Cognition: recent memory grossly intact, remote memory grossly intact and language grossly intact; + attention not intact Estimated Intelligence: consistent with education level Insight: + limited insight Judgment: + limited judgement Vital Signs (Past 24 Hours) Last Vital Signs Temp 36.6 C 07/11/25 06:29 Pulse 91 H 07/11/25 06:29 Resp 16 07/11/25 06:29 BP 158/115 H 07/11/25 06:29 Pulse Ox 97 07/10/25 03:40 O2 Del Method Room Air 07/10/25 03:40 Results & Data ([facility]) Current Inpatient Medications Current Inpatient Medications: Current Inpatient Medications Acetaminophen (Acetaminophen 325 Mg Tab) 650 mg PO Q4H PRN PRN Reason: Headache or Minor Fever Stop: 08/02/25 00:53 Al Hydrox/Mg Hydrox/Simethicone (Aluminum/Magnesium Susp 30 Ml Udc) 30 ml PO Q4H PRN PRN Reason: GI Upset Stop: 08/02/25 00:53 Aripiprazole (Aripiprazole 10 Mg Tab) 20 mg PO QAM [facility] Stop: 08/09/25 08:59 Last Admin: 07/11/25 07:55 Dose: 20 mg Benztropine Mesylate (Benztropine Mesylate 0.5 Mg Tab) 0.5 mg PO BID PRN PRN Reason: EPS Stop: 08/02/25 15:38 Clonazepam (Clonazepam 1 Mg Tab) 1 mg PO HS [facility] Stop: 08/09/25 21:59 Last Admin: 07/10/25 21:02 Dose: 1 mg Divalproex Sodium (Divalproex Extended Release 500 Mg Tab) 1,000 mg PO HS [facility] Stop: 08/04/25 21:59 Last Admin: 07/10/25 21:03 Dose: 1,000 mg Doxepin HCl (Doxepin Hcl 10 Mg Capsule) 10 mg PO HS@2130 [facility] Stop: 08/07/25 21:29 Last Admin: 07/10/25 21:02 Dose: 10 mg Hydroxyzine HCl (Hydroxyzine Hcl 25 Mg Tab) 50 mg PO HSZ PRN PRN Reason: Insomnia Stop: 08/02/25 00:53 Last Admin: 07/10/25 21:02 Dose: 50 mg Hydroxyzine HCl (Hydroxyzine Hcl 25 Mg Tab) 25 mg PO Q4H PRN PRN Reason: Anxiety Stop: 08/02/25 00:53 Lorazepam (Lorazepam 1 Mg Tab) 1 mg PO Q6H PRN PRN Reason: severe anxiety, or agitation Stop: 08/02/25 15:38 Last Admin: 07/09/25 20:51 Dose: 1 mg Magnesium Hydroxide (Magnesium Hydroxide Susp 30 Ml Udc) 30 ml PO DAILY PRN PRN Reason: Constipation Stop: 08/02/25 00:53 Metformin HCl (Metformin Hcl Er 500 Mg Tabcr) 500 mg PO DAILY@1745 [facility] Stop: 08/04/25 17:44 Last Admin: 07/10/25 17:24 Dose: 500 mg Rosuvastatin Calcium (Rosuvastatin Calcium 5 Mg Tab) 5 mg PO QAM [facility] Stop: 08/05/25 08:59 Last Admin: 07/11/25 07:55 Dose: 5 mg Sodium Chloride (Sodium Chloride 0.65% Na Soln 45 Ml ([place])) 1 - 2 sprays NA PRN PRN PRN Reason: Nasal Dryness/Congestion Stop: 08/02/25 00:53 Mental Health & Subst Abuse Tx Therapist Name of Therapist: None current Machine Setter Supervisor Name of Machine Setter Supervisor: None current
[2025-07-12] MEDS: DIVALPROEX EXTENDED RELEASE 500 MG TAB PO SCH (21:11)
[2025-07-12] MEDS: OLANZapine 20 MG TABLET PO SCH (21:12)
--- NOTE | 2025-07-12 21:16 | Psychiatric Progress Note ---
Date of Service July 12, 2025 Impression / Recommendations Tatianna TEE is a 35-year-old M who currently lives in in an apartment with 1 roommate, has a history of schizophrenia, and was admitted on 07/03/25 00:26 on a 201 voluntary commitment for increased psychosis, and suicidal ideation. I reviewed the records extensively, since this patient is previously known to [facility] psychiatry department from multiple past admissions. Does appear he has previously been diagnosed with schizophrenia. Interestingly, he says "Caplyta was working perfectly, until I stopped sleeping." He also has a notable pressure and energy to his speech and presentation today. I am questioning whether this could reflect some manic fluctuation in his mood, given it is fall, and it this could have spurred up more paranoia despite being consistent on his medication. Another possibility on the differential though, is that he actually was not adherent with his medication, which would be consistent with previous. Finally, it his last admission, Caplyta appeared to not be sufficient for stabilization for him, and he was changed over to Haldol DEC and Abilify. Is unclear at this point why he was put back on Caplyta by his outpatient providers, but it would be helpful to obtain that information. A: Ongoing psychosis with hallucinations and very poor sleep. Didn't respond to moderate dose of Seroquel and ongoing psychosis. Given this, and his unwillingness to consider another CONDE medication option besides Abilify discussed use of olanzapine for short-term help with sleep and psychosis. he consents to this. Reviewed metabolic, movement, AIMS, fasting labwork side effects/monitoring. Will also increase Depakote to target ongoing schizoaffective disorder manic episode. Overall, I spent a total of 35 minutes on this case including meeting with the patient, reviewing the chart, nursing report, multidisciplinary team meeting, orders, and documentation. (1) Schizoaffective disorder: Plan 07/12/2025: -Discontinue Seroquel as ineffective -Start olanzapine 20mg HS (ongoing poor sleep and history of antipsychotic use including clozapine so starting with high dose given his desire to sleep as kameron ckly as possible due to desire to discharge soon) -Increase Depakote ER to 1500mg HS 07/11/2025: -Discontinue Klonopin and doxepin. -Start Seroquel 300mg HS 07/10/2025: -Start Klonopin 1mg HS 07/09/2025: -Increase abilify to 20mg daily tomorrow 07/08/2025: -discontinue trazodone -Start doxepin 10mg HS 07/07/25: add trazodone nightly scheduled, increase Abilify to 15, and obtain Depakote labs in AM. 07/06/25: continue current meds and treatment 07/05/25: - Increase depakote ER to 1000mg HS - Continue abilify 10mg as planned. - Start metformin and rosuvastatin - he was previously on these, and fasting labs showed both elevated A1C and elevated total cholesterol. 07/04/25: DC Caplyta start Abilify 5 mg continue Depakote at 500 for today 07/03/25: The patient was admitted to the [facility] ([facility] health unit) on q15 min checks (behavioral with suicide precautions) for safety. The patient will participate in group, recreational, and milieu therapies and will be offered additional individual and family sessions as clinically appropriate. New medications initiated: Depakote ER 500 mg nightly Vraylar 1.5 mg today, then 3mg daily starting tomorrow Continue the following home medications: none The following PRN medications will be started as well: Vistaril 25 mg as needed anxiety, 50 mg as needed insomnia Cogentin 0.5 mg twice daily as needed EPS Ativan 1 mg every 6 hours as needed severe anxiety or agitation Inventory Assets Strengths: Stable housing, outpatient providers, voluntary/seeking treatment Needs: chronically poor medication adherence, active psychosis, limited social supports Suicide Risk Level Suicide Risk Level: Moderate (q15 min suicide checks) (psychosis and references recent sleep medication use was a suicide attempt however denies current SI and is future oriented but disorganized behaviors, however feels safe in the hospital and feels able to ask staff for support if needed) Suicide Risk Level Comments: Risk Factors Assessment Male: Yes : No Do You Have Access To A Gun?: No Health Problems: No Mental Health Diagnoses: Yes Substance Use Disorders: No Previous Attempt: Yes Family History of Suicide: No Previous Psychiatric Hospitalization: Yes Hopelessness: No Protective Factors Assessment Buddhism Beliefs: Yes : No Responsible for Young Children: No Employed: No Stable Relationships: No Supportive Family: No Interval History Identifying Information LEXII TEE is a 35-year-old M who currently lives in in an apartment with 1 roommate, has a history of schizophrenia, and was admitted on 07/03/25 00:26 on a 201 voluntary commitment for increased psychosis, and suicidal ideation. Chief Complaint "[]". Review of Systems Sleep Information Total Hours of Sleep: 1.5 Meal Information Percent Meal Consumed - Breakfast: 100 Percent Meal Consumed - Lunch: 100 Percent Meal Consumed - Dinner: 90 Subjective Subjective Patient was seen & assessed and interval progress reviewed with treatment team. Awake almost all night. Pacing. Today making paranoid statements about race to staff and paranoid that SW was trying to delay his discharge. Today when I discuss his poor sleep he reports "it's not a problem because I have still have energy". Reviewed this was my concern and that we feel he is continuing to experience sharmila. He becomes frustrated with discussion of making changes to medications to help with sleep. Consents to changes but also tells me "I don't know why you care, it's not like I'm your son, you shouldn't care if I sleep." Later actively responding to internal stimuli, not recognizing or even acknowledging peers or staff or provider in the halls. Physical Exam Psychiatric Orientation: alert, oriented x 3 and + guarded Apperance: appropriately dressed and appropriately groomed Eye Contact: + fair eye contact Motor Behavior: steady gait and station, no abnormal motor movements and + psychomotor agitation; n EPS Speech: + abnormal rate/rhythm/volume of speech (soft, mumbled) Affect: + blunted affect Mood: + anxious mood Thought Process: + concrete thought process Thought Content: + paranoid and + delusions Suicidal Thoughts: denies suicidal thoughts, denies suicidal plan and denies suicidal intent Homicidal Thoughts: denies homicidal thoughts, denies homicidal plan and denies homicidal intent Hallucinations: + auditory hallucinations and + visual hallucinations Cognition: recent memory grossly intact, remote memory grossly intact and language grossly intact; + attention not intact Estimated Intelligence: consistent with education level Insight: + limited insight Judgment: + limited judgement Vital Signs (Past 24 Hours) Last Vital Signs Temp 36.4 C L 07/12/25 06:26 Pulse 99 H 07/12/25 06:27 Resp 18 07/12/25 06:26 BP 136/98 07/12/25 06:27 Pulse Ox 97 07/10/25 03:40 O2 Del Method Room Air 07/10/25 03:40 Results & Data ([facility]) Current Inpatient Medications Current Inpatient Medications: Current Inpatient Medications Acetaminophen (Acetaminophen 325 Mg Tab) 650 mg PO Q4H PRN PRN Reason: Headache or Minor Fever Stop: 08/02/25 00:53 Al Hydrox/Mg Hydrox/Simethicone (Aluminum/Magnesium Susp 30 Ml Udc) 30 ml PO Q4H PRN PRN Reason: GI Upset Stop: 08/02/25 00:53 Aripiprazole (Aripiprazole 10 Mg Tab) 20 mg PO QAM LINO Stop: 08/09/25 08:59 Last Admin: 07/12/25 08:35 Dose: 20 mg Benztropine Mesylate (Benztropine Mesylate 0.5 Mg Tab) 0.5 mg PO BID PRN PRN Reason: EPS Stop: 08/02/25 15:38 Divalproex Sodium (Divalproex Extended Release 500 Mg Tab) 1,500 mg PO HS LINO Stop: 08/11/25 21:59 Hydroxyzine HCl (Hydroxyzine Hcl 25 Mg Tab) 50 mg PO HSZ PRN PRN Reason: Insomnia Stop: 08/02/25 00:53 Last Admin: 07/10/25 21:02 Dose: 50 mg Hydroxyzine HCl (Hydroxyzine Hcl 25 Mg Tab) 25 mg PO Q4H PRN PRN Reason: Anxiety Stop: 08/02/25 00:53 Lorazepam (Lorazepam 1 Mg Tab) 1 mg PO Q6H PRN PRN Reason: severe anxiety, or agitation Stop: 08/02/25 15:38 Last Admin: 07/09/25 20:51 Dose: 1 mg Magnesium Hydroxide (Magnesium Hydroxide Susp 30 Ml Udc) 30 ml PO DAILY PRN PRN Reason: Constipation Stop: 08/02/25 00:53 Metformin HCl (Metformin Hcl Er 500 Mg Tabcr) 500 mg PO DAILY@1745 [facility] Stop: 08/04/25 17:44 Last Admin: 07/12/25 17:36 Dose: 500 mg Olanzapine (Olanzapine 20 Mg Tablet) 20 mg PO HS LINO Stop: 08/11/25 21:59 Rosuvastatin Calcium (Rosuvastatin Calcium 5 Mg Tab) 5 mg PO QAM LINO Stop: 08/05/25 08:59 Last Admin: 07/12/25 08:34 Dose: 5 mg Sodium Chloride (Sodium Chloride 0.65% Na Soln 45 Ml (Maurice)) 1 - 2 sprays NA PRN PRN PRN Reason: Nasal Dryness/Congestion Stop: 08/02/25 00:53 Mental Health & Subst Abuse Tx Therapist Name of Therapist: None 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
[2025-07-12] MEDS ORDERED: OLANZapine 10 MG TAB PO SCH (22:00)
[2025-07-13 06:56] VITALS: O2SAT 98
--- NOTE | 2025-07-13 09:29 | Psychiatric Progress Note ---
Date of Service July 13, 2025 Impression / Recommendations Tatianna TEE is a 35-year-old M who currently lives in in an apartment with 1 roommate, has a history of schizophrenia, and was admitted on 07/03/25 00:26 on a 201 voluntary commitment for increased psychosis, and suicidal ideation. I reviewed the records extensively, since this patient is previously known to [facility] psychiatry department from multiple past admissions. Does appear he has previously been diagnosed with schizophrenia. Interestingly, he says "Caplyta was working perfectly, until I stopped sleeping." He also has a notable pressure and energy to his speech and presentation today. I am questioning whether this could reflect some manic fluctuation in his mood, given it is fall, and it this could have spurred up more paranoia despite being consistent on his medication. Another possibility on the differential though, is that he actually was not adherent with his medication, which would be consistent with previous. Finally, it his last admission, Caplyta appeared to not be sufficient for stabilization for him, and he was changed over to Haldol DEC and Abilify. Is unclear at this point why he was put back on Caplyta by his outpatient providers, but it would be helpful to obtain that information. A: Ongoing sharmila with psychosis with hallucinations and very poor sleep. Continuing to sleep poorly despite high dose olanzapine last night. He consents to starting ativan TID for sharmila. Reviewed r/b/a and side effects including addictive potential, falls, sedation, respiratory suppression, not taking while driving or operating heavy machinery. Overall, I spent a total of 35 minutes on this case including meeting with the patient, reviewing the chart, nursing report, multidisciplinary team meeting, orders, and documentation. (1) Schizoaffective disorder: Plan 07/13/2025: -Start ativan 1mg TID po -Additional olanzapine 10mg HS prn for sharmila with insomnia 07/12/2025: -Discontinue Seroquel as ineffective -Start olanzapine 20mg HS (ongoing poor sleep and history of antipsychotic use including clozapine so starting with high dose given his desire to sleep as quickly as possible due to desire to discharge soon) -Increase Depakote ER to 1500mg HS 07/11/2025: -Discontinue Klonopin and doxepin. -Start Seroquel 300mg HS 07/10/2025: -Start Klonopin 1mg HS 07/09/2025: -Increase abilify to 20mg daily tomorrow 07/08/2025: -discontinue trazodone -Start doxepin 10mg HS 07/07/25: add trazodone nightly scheduled, increase Abilify to 15, and obtain Depakote labs in AM. 07/06/25: continue current meds and treatment 07/05/25: - Increase depakote ER to 1000mg HS - Continue abilify 10mg as planned. - Start metformin and rosuvastatin - he was previously on these, and fasting labs showed both elevated A1C and elevated total cholesterol. 07/04/25: DC Caplyta start Abilify 5 mg continue Depakote at 500 for today 07/03/25: The patient was admitted to the [facility] ([facility] mental health unit) on q15 min checks (behavioral with suicide precautions) for safety. The patient will participate in group, recreational, and milieu therapies and will be offered additional individual and family sessions as clinically appropriate. New medications initiated: Depakote ER 500 mg nightly Vraylar 1.5 mg today, then 3mg daily starting tomorrow Continue the following home medications: none The following PRN medications will be started as well: Vistaril 25 mg as needed anxiety, 50 mg as needed insomnia Cogentin 0.5 mg twice daily as needed EPS Ativan 1 mg every 6 hours as needed severe anxiety or agitation Inventory Assets Strengths: Stable housing, outpatient providers, voluntary/seeking treatment Needs: chronically poor medication adherence, active psychosis, limited social supports Suicide Risk Level Suicide Risk Level: Moderate (q15 min suicide checks) (psychosis and references recent sleep medication use was a suicide attempt however denies current SI and is future oriented but disorganized behaviors, however feels safe in the hospital and feels able to ask staff for support if needed) Suicide Risk Level Comments: Risk Factors Assessment Male: Yes : No Do You Have Access To A Gun?: No Health Problems: No Mental Health Diagnoses: Yes Substance Use Disorders: No Previous Attempt: Yes Family History of Suicide: No Previous Psychiatric Hospitalization: Yes Hopelessness: No Protective Factors Assessment Religion Beliefs: Yes : No Responsible for Young Children: No Employed: No Stable Relationships: No Supportive Family: No Interval History Identifying Information LEXII TEE is a 35-year-old M who currently lives in in an apartment with 1 roommate, has a history of schizophrenia, and was admitted on 07/03/25 00:26 on a 201 voluntary commitment for increased psychosis, and suicidal ideation. Chief Complaint "I'm a college student and we don't need sleep". Review of Systems Sleep Information Total Hours of Sleep: 3.75 Meal Information Percent Meal Consumed - Breakfast: 100 Percent Meal Consumed - Lunch: 100 Percent Meal Consumed - Dinner: 90 Subjective Subjective Patient was seen & assessed and interval progress reviewed with nursing and social work. Fell asleep but only for 3 hours. Ongoing psychosis and responding to internal stimuli. Today spent most of the day pacing and waving his hands and fingers as he has loud and active conversations with himself in response to internal stimuli. Today again minimizes his poor sleep. He does remain willing for medications. He denies any side effects from the olanzapine. He consents to scheduling ativan to help with sharmila/sleep. He expresses paranoia to me about one of the social workers who he racially profiles. He feels less worried about his rent after confirming he was sent some money to his bank account. Physical Exam Psychiatric Orientation: alert, oriented x 3 and + guarded Apperance: appropriately dressed and appropriately groomed Eye Contact: + fair eye contact Motor Behavior: steady gait and station, no abnormal motor movements and + psychomotor agitation; n EPS Speech: + abnormal rate/rhythm/volume of speech (soft, mumbled) Affect: + blunted affect Mood: + anxious mood Thought Process: + concrete thought process Thought Content: + paranoid and + delusions Suicidal Thoughts: denies suicidal thoughts, denies suicidal plan and denies suicidal intent Homicidal Thoughts: denies homicidal thoughts, denies homicidal plan and denies homicidal intent Hallucinations: + auditory hallucinations and + visual hallucinations Cognition: recent memory grossly intact, remote memory grossly intact and language grossly intact; + attention not intact Estimated Intelligence: consistent with education level Insight: + limited insight Judgment: + limited judgement Vital Signs (Past 24 Hours) Last Vital Signs Temp 35.9 C L 07/13/25 06:54 Pulse 88 07/13/25 06:54 Resp 18 07/13/25 06:54 BP 141/100 H 07/13/25 06:54 Pulse Ox 98 07/13/25 06:54 O2 Del Method Room Air 07/13/25 06:54 Results & Data ([facility]) Current Inpatient Medications Current Inpatient Medications: Current Inpatient Medications Acetaminophen (Acetaminophen 325 Mg Tab) 650 mg PO Q4H PRN PRN Reason: Headache or Minor Fever Stop: 08/02/25 00:53 Al Hydrox/Mg Hydrox/Simethicone (Aluminum/Magnesium Susp 30 Ml Udc) 30 ml PO Q4H PRN PRN Reason: GI Upset Stop: 08/02/25 00:53 Aripiprazole (Aripiprazole 10 Mg Tab) 20 mg PO QAM LINO Stop: 08/09/25 08:59 Last Admin: 07/13/25 08:09 Dose: 20 mg Benztropine Mesylate (Benztropine Mesylate 0.5 Mg Tab) 0.5 mg PO BID PRN PRN Reason: EPS Stop: 08/02/25 15:38 Divalproex Sodium (Divalproex Extended Release 500 Mg Tab) 1,500 mg PO HS LINO Stop: 08/11/25 21:59 Last Admin: 07/12/25 21:11 Dose: 1,500 mg Hydroxyzine HCl (Hydroxyzine Hcl 25 Mg Tab) 50 mg PO HSZ PRN PRN Reason: Insomnia Stop: 08/02/25 00:53 Last Admin: 07/10/25 21:02 Dose: 50 mg Hydroxyzine HCl (Hydroxyzine Hcl 25 Mg Tab) 25 mg PO Q4H PRN PRN Reason: Anxiety Stop: 08/02/25 00:53 Lorazepam (Lorazepam 1 Mg Tab) 1 mg PO Q6H PRN PRN Reason: severe anxiety, or agitation Stop: 08/02/25 15:38 Last Admin: 07/12/25 21:15 Dose: 1 mg Magnesium Hydroxide (Magnesium Hydroxide Susp 30 Ml Udc) 30 ml PO DAILY PRN PRN Reason: Constipation Stop: 08/02/25 00:53 Metformin HCl (Metformin Hcl Er 500 Mg Tabcr) 500 mg PO DAILY@1745 [facility] Stop: 08/04/25 17:44 Last Admin: 07/12/25 17:36 Dose: 500 mg Olanzapine (Olanzapine 20 Mg Tablet) 20 mg PO HS LINO Stop: 08/11/25 21:59 Last Admin: 07/12/25 21:12 Dose: 20 mg Rosuvastatin Calcium (Rosuvastatin Calcium 5 Mg Tab) 5 mg PO QAM LINO Stop: 08/05/25 08:59 Last Admin: 07/13/25 08:09 Dose: 5 mg Sodium Chloride (Sodium Chloride 0.65% Na Soln 45 Ml ([place]ala)) 1 - 2 sprays NA PRN PRN PRN Reason: Nasal Dryness/Congestion Stop: 08/02/25 00:53 Mental Health & Subst Abuse Tx Therapist Name of Therapist: None current Captain Cannery Tender Name of Captain Cannery Tender: None current
[2025-07-13] MEDS: LORazepam 1 MG TAB PO SCH (12:47)
[2025-07-14] MEDS: OLANZapine 10 MG TAB PO PRN (01:10)
[2025-07-14 08:26] VITALS: PULSE 88; RESP 20; TEMP 98.2
--- NOTE | 2025-07-14 09:07 | Psychiatric Progress Note ---
Date of Service July 14, 2025 Impression / Recommendations Impression LEXII TEE is a 35-year-old M who currently lives in in an apartment with 1 roommate, has a history of schizophrenia, and was admitted on 07/03/25 00:26 on a 201 voluntary commitment for increased psychosis, and suicidal ideation. I reviewed the records extensively, since this patient is previously known to [facility] psychiatry department from multiple past admissions. Does appear he has previously been diagnosed with schizophrenia. Interestingly, he says "Caplyta was working perfectly, until I stopped sleeping." He also has a notable pressure and energy to his speech and presentation today. I am questioning whether this could reflect some manic fluctuation in his mood, given it is fall, and it this could have spurred up more paranoia despite being consistent on his medication. Another possibility on the differential though, is that he actually was not adherent with his medication, which would be consistent with previous. Finally, it his last admission, Caplyta appeared to not be sufficient for stabilization for him, and he was changed over to Haldol DEC and Abilify. Is unclear at this point why he was put back on Caplyta by his outpatient providers, but it would be helpful to obtain that information. A: Ongoing sharmila with psychosis with hallucinations and very poor sleep. Will continue with Depakote titration. BP and HR look improved today, suspect from some of the beneficial calming effects of ativan and olanzapine additions. Overall, I spent a total of 28 minutes on this case including meeting with the patient, reviewing the chart, nursing report, multidisciplinary team meeting, orders, and documentation. (1) Schizoaffective disorder: Plan 07/14/2025: -Increase Depakote ER to 2000mg HS 07/13/2025: -Start ativan 1mg TID po -Additional olanzapine 10mg HS prn for sharmila with insomnia 07/12/2025: -Discontinue Seroquel as ineffective -Start olanzapine 20mg HS (ongoing poor sleep and history of antipsychotic use including clozapine so starting with high dose given his desire to sleep as quickly as possible due to desire to discharge soon) -Increase Depakote ER to 1500mg HS 07/11/2025: -Discontinue Klonopin and doxepin. -Start Seroquel 300mg HS 07/10/2025: -Start Klonopin 1mg HS 07/09/2025: -Increase abilify to 20mg daily tomorrow 07/08/2025: -discontinue trazodone -Start doxepin 10mg HS 07/07/25: add trazodone nightly scheduled, increase Abilify to 15, and obtain Depakote labs in AM. 07/06/25: continue current meds and treatment 07/05/25: - Increase depakote ER to 1000mg HS - Continue abilify 10mg as planned. - Start metformin and rosuvastatin - he was previously on these, and fasting labs showed both elevated A1C and elevated total cholesterol. 07/04/25: DC Caplyta start Abilify 5 mg continue Depakote at 500 for today 07/03/25: The patient was admitted to the [facility] ([facility] mental health unit) on q15 min checks (behavioral with suicide precautions) for safety. The patient will participate in group, recreational, and milieu therapies and will be offered additional individual and family sessions as clinically appropriate. New medications initiated: Depakote ER 500 mg nightly Vraylar 1.5 mg today, then 3mg daily starting tomorrow Continue the following home medications: none The following PRN medications will be started as well: Vistaril 25 mg as needed anxiety, 50 mg as needed insomnia Cogentin 0.5 mg twice daily as needed EPS Ativan 1 mg every 6 hours as needed severe anxiety or agitation Inventory Assets Strengths: Stable housing, outpatient providers, voluntary/seeking treatment Needs: chronically poor medication adherence, active psychosis, limited social supports Suicide Risk Level Suicide Risk Level: Moderate (q15 min suicide checks) (psychosis and references recent sleep medication use was a suicide attempt however denies current SI and is future oriented but disorganized behaviors, however feels safe in the hospital and feels able to ask staff for support if needed) Suicide Risk Level Comments: Risk Factors Assessment Male: Yes : No Do You Have Access To A Gun?: No Health Problems: No Mental Health Diagnoses: Yes Substance Use Disorders: No Previous Attempt: Yes Family History of Suicide: No Previous Psychiatric Hospitalization: Yes Hopelessness: No Protective Factors Assessment Druze Beliefs: Yes : No Responsible for Young Children: No Employed: No Stable Relationships: No Supportive Family: No Interval History Identifying Information LEXII TEE is a 35-year-old M who currently lives in in an apartment with 1 roommate, has a history of schizophrenia, and was admitted on 07/03/25 00:26 on a 201 voluntary commitment for increased psychosis, and suicidal ideation. Chief Complaint "fine thank you". Review of Systems Sleep Information Total Hours of Sleep: 3.5 Meal Information Percent Meal Consumed - Breakfast: 90 Percent Meal Consumed - Lunch: 50 Percent Meal Consumed - Dinner: 100 Subjective Subjective Patient was seen & assessed and interval progress reviewed with treatment team. More agitated last evening. Stated he wanted to leave but gave no immediate timeframe and was willing to remain on unit so no 72 hour notice offered. He then asked for his bedtime medications and got them early. Expressed paranoia that provider was trying to poison him. Then became more paranoid about nurses. He slept briefly then awoke, then got additional olanzapine 10mg HS prn and then was awake and pacing the halls loudly. Today he is resting after morning dose of ativan. tells me he reported to the nurses that he was worried I was going to use the medications "to try to hurt me" but after I attempt to provide reassurance I am only here to help him, he then reflects on how difficult a doctor's job must be. Attempted to provide reassurance that he is safe in the hospital and that our goal remains to get him feeling better as quickly as possible. Physical Exam Psychiatric Orientation: alert, oriented x 3 and + guarded Apperance: appropriately dressed and appropriately groomed Eye Contact: + fair eye contact Motor Behavior: steady gait and station, no abnormal motor movements and + psychomotor agitation; n EPS Speech: + abnormal rate/rhythm/volume of speech (soft, mumbled) Affect: + blunted affect Mood: + anxious mood Thought Process: + concrete thought process Thought Content: + paranoid and + delusions Suicidal Thoughts: denies suicidal thoughts, denies suicidal plan and denies suicidal intent Homicidal Thoughts: denies homicidal thoughts, denies homicidal plan and denies homicidal intent Hallucinations: + auditory hallucinations Cognition: recent memory grossly intact, remote memory grossly intact and language grossly intact; + attention not intact Estimated Intelligence: consistent with education level Insight: + limited insight Judgment: + limited judgement Vital Signs (Past 24 Hours) Last Vital Signs Temp 36.8 C 07/14/25 08:26 Pulse 88 07/14/25 08:26 Resp 20 07/14/25 08:26 BP 135/90 07/14/25 08:26 Pulse Ox 98 07/14/25 08:26 O2 Del Method Room Air 07/14/25 08:26 Results & Data ([facility]) Current Inpatient Medications Current Inpatient Medications: Current Inpatient Medications Acetaminophen (Acetaminophen 325 Mg Tab) 650 mg PO Q4H PRN PRN Reason: Headache or Minor Fever Stop: 08/02/25 00:53 Al Hydrox/Mg Hydrox/Simethicone (Aluminum/Magnesium Susp 30 Ml Udc) 30 ml PO Q4H PRN PRN Reason: GI Upset Stop: 08/02/25 00:53 Aripiprazole (Aripiprazole 10 Mg Tab) 20 mg PO QAM LINO Stop: 08/09/25 08:59 Last Admin: 07/14/25 08:53 Dose: 20 mg Benztropine Mesylate (Benztropine Mesylate 0.5 Mg Tab) 0.5 mg PO BID PRN PRN Reason: EPS Stop: 08/02/25 15:38 Divalproex Sodium (Divalproex Extended Release 500 Mg Tab) 1,500 mg PO HS LINO Stop: 08/11/25 21:59 Last Admin: 07/13/25 19:16 Dose: 1,500 mg Hydroxyzine HCl (Hydroxyzine Hcl 25 Mg Tab) 50 mg PO HSZ PRN PRN Reason: Insomnia Stop: 08/02/25 00:53 Last Admin: 07/10/25 21:02 Dose: 50 mg Hydroxyzine HCl (Hydroxyzine Hcl 25 Mg Tab) 25 mg PO Q4H PRN PRN Reason: Anxiety Stop: 08/02/25 00:53 Lorazepam (Lorazepam 1 Mg Tab) 1 mg PO Q6H PRN PRN Reason: severe anxiety, or agitation Stop: 08/02/25 15:38 Last Admin: 07/12/25 21:15 Dose: 1 mg Lorazepam (Lorazepam 1 Mg Tab) 1 mg PO TID LINO Stop: 08/12/25 11:39 Last Admin: 07/14/25 08:53 Dose: 1 mg Magnesium Hydroxide (Magnesium Hydroxide Susp 30 Ml Udc) 30 ml PO DAILY PRN PRN Reason: Constipation Stop: 08/02/25 00:53 Metformin HCl (Metformin Hcl Er 500 Mg Tabcr) 500 mg PO DAILY@1745 LINO Stop: 08/04/25 17:44 Last Admin: 07/13/25 19:13 Dose: Not Given Olanzapine (Olanzapine 20 Mg Tablet) 20 mg PO HS LINO Stop: 08/11/25 21:59 Last Admin: 07/13/25 19:16 Dose: 20 mg Olanzapine (Olanzapine 10 Mg Tab) 10 mg PO HS PRN PRN Reason: sharmila with insomnia and restlessness Stop: 08/12/25 21:59 Last Admin: 07/14/25 01:10 Dose: 10 mg Rosuvastatin Calcium (Rosuvastatin Calcium 5 Mg Tab) 5 mg PO QAM LINO Stop: 08/05/25 08:59 Last Admin: 07/14/25 08:53 Dose: 5 mg Sodium Chloride (Sodium Chloride 0.65% Na Soln 45 Ml (Esmeralda)) 1 - 2 sprays NA PRN PRN PRN Reason: Nasal Dryness/Congestion Stop: 08/02/25 00:53 Mental Health & Subst Abuse Tx Therapist Name of Therapist: None current Filler Machine Operator Name of Filler Machine Operator: None current
[2025-07-14] MEDS: DIVALPROEX EXTENDED RELEASE 500 MG TAB PO SCH (20:17)
--- NOTE | 2025-07-15 08:57 | Psychiatric Progress Note ---
Date of Service July 15, 2025 Impression / Recommendations Impression LEXII TEE is a 35-year-old M who currently lives in in an apartment with 1 roommate, has a history of schizophrenia, and was admitted on 07/03/25 00:26 on a 201 voluntary commitment for increased psychosis, and suicidal ideation. I reviewed the records extensively, since this patient is previously known to [facility] psychiatry department from multiple past admissions. Does appear he has previously been diagnosed with schizophrenia. Interestingly, he says "Caplyta was working perfectly, until I stopped sleeping." He also has a notable pressure and energy to his speech and presentation today. I am questioning whether this could reflect some manic fluctuation in his mood, given it is fall, and it this could have spurred up more paranoia despite being consistent on his medication. Another possibility on the differential though, is that he actually was not adherent with his medication, which would be consistent with previous. Finally, it his last admission, Caplyta appeared to not be sufficient for stabilization for him, and he was changed over to Haldol DEC and Abilify. Is unclear at this point why he was put back on Caplyta by his outpatient providers, but it would be helpful to obtain that information. A: Depakote was increased yesterday, so we will obtain a level on Thursday. Patient has signed a 72-hour notice. Although he is symptomatic, he is caring for his ADLs, denying SI, and denying HI. We are unable to keep him here on an involuntary basis as a result. I plan to keep him in through the 72- hour notice, to hopefully gain as much stability and coordination with outpatient services as we can, to ensure his best chance of stabilization in the community. Overall, I spent a total of 40 minutes on this case including meeting with the patient, reviewing the chart, nursing report, multidisciplinary team meeting, orders, and documentation. (1) Schizoaffective disorder: Plan 07/15/25: - CMP, CBCD, and valproic acid level ordered for Thursday. - 72-hour notice signed today by pt 07/14/2025: -Increase Depakote ER to 2000mg HS 07/13/2025: -Start ativan 1mg TID po -Additional olanzapine 10mg HS prn for sharmila with insomnia 07/12/2025: -Discontinue Seroquel as ineffective -Start olanzapine 20mg HS (ongoing poor sleep and history of antipsychotic use including clozapine so starting with high dose given his desire to sleep as quickly as possible due to desire to discharge soon) -Increase Depakote ER to 1500mg HS 07/11/2025: -Discontinue Klonopin and doxepin. -Start Seroquel 300mg HS 07/10/2025: -Start Klonopin 1mg HS 07/09/2025: -Increase abilify to 20mg daily tomorrow 07/08/2025: -discontinue trazodone -Start doxepin 10mg HS 07/07/25: add trazodone nightly scheduled, increase Abilify to 15, and obtain Depakote labs in AM. 07/06/25: continue current meds and treatment 07/05/25: - Increase depakote ER to 1000mg HS - Continue abilify 10mg as planned. - Start metformin and rosuvastatin - he was previously on these, and fasting labs showed both elevated A1C and elevated total cholesterol. 07/04/25: DC Caplyta start Abilify 5 mg continue Depakote at 500 for today 07/03/25: The patient was admitted to the [facility] ([facility] mental health unit) on q15 min checks (behavioral with suicide precautions) for safety. The patient will participate in group, recreational, and milieu therapies and will be offered additional individual and family sessions as clinically appropriate. New medications initiated: Depakote ER 500 mg nightly Vraylar 1.5 mg today, then 3mg daily starting tomorrow Continue the following home medications: none The following PRN medications will be started as well: Vistaril 25 mg as needed anxiety, 50 mg as needed insomnia Cogentin 0.5 mg twice daily as needed EPS Ativan 1 mg every 6 hours as needed severe anxiety or agitation Inventory Assets Strengths: Stable housing, outpatient providers, voluntary/seeking treatment Needs: chronically poor medication adherence, active psychosis, limited social supports Suicide Risk Level Suicide Risk Level: Moderate (q15 min suicide checks) (psychosis and references recent sleep medication use was a suicide attempt however denies current SI and is future oriented but disorganized behaviors, however feels safe in the hospital and feels able to ask staff for support if needed) Suicide Risk Level Comments: Risk Factors Assessment Male: Yes : No Do You Have Access To A Gun?: No Health Problems: No Mental Health Diagnoses: Yes Substance Use Disorders: No Previous Attempt: Yes Family History of Suicide: No Previous Psychiatric Hospitalization: Yes Hopelessness: No Protective Factors Assessment Christianity Beliefs: Yes : No Responsible for Young Children: No Employed: No Stable Relationships: No Supportive Family: No Interval History Identifying Information LEXII TEE is a 35-year-old M who currently lives in in an apartment with 1 roommate, has a history of schizophrenia, and was admitted on 07/03/25 00:26 on a 201 voluntary commitment for increased psychosis, and suicidal ideation. Chief Complaint "[]". Review of Systems Sleep Information Total Hours of Sleep: 4 Meal Information Percent Meal Consumed - Breakfast: 90 Percent Meal Consumed - Lunch: 100 Percent Meal Consumed - Dinner: 100 Subjective Subjective Patient was seen & assessed and interval progress reviewed with Nursing per report: paranoid with staff this week, got agitated and wanted to leave did not have aggressive behavior now on elopement risk does accept medication no voiced paranoia since yesterday, no further agitation attended groups rated mood 8/10 and "happy" slept 4 hours showered without prompting - usually twice a day I met with the patient privately in his room. He did discuss wanting to be discharged soon, as his rent was due on July 10, and he is concerned that his landlord will "not be as nice as You think." He says he is not hearing voices, "I have just been praying." He denies any worries or concerns. He continues to say he is sleeping well and only needs 4 hours of sleep at baseline. Did have rapid speech with significant stammer, and some thought blocking. He believes he will be able to follow-up at [facility], and became frustrated when I suggested that might not be a possibility. I did communicate that I would like to see him sleeping better, and be on the right dose of medicines with follow-up before discharging. At the end of the encounter, he said "I can tell you do not like me". He became increasingly paranoid and asked to end the encounter. He said "I do not want your services." Afterwards, he told nursing staff that I had told him he would be here for months. Physical Exam Psychiatric Orientation: alert, oriented x 3 and + guarded Apperance: appropriately dressed, appropriately groomed and appeared stated age Eye Contact: + fair eye contact Motor Behavior: steady gait and station and no abnormal motor movements; n EPS Speech: + pressured speech (soft, mumbled); + abnormal rate/rhythm/volume of speech (soft, mumbled) Affect: + blunted affect Mood: + anxious mood Thought Process: + thought blocking and + concrete thought process Thought Content: + paranoid and + delusions Suicidal Thoughts: denies suicidal thoughts, denies suicidal plan and denies suicidal intent Homicidal Thoughts: denies homicidal thoughts, denies homicidal plan and denies homicidal intent Hallucinations: + auditory hallucinations Cognition: recent memory grossly intact, remote memory grossly intact and language grossly intact; + attention not intact Insight: + limited insight Judgment: + limited judgement Vital Signs (Past 24 Hours) Last Vital Signs Temp 36.8 C 07/14/25 08:26 Pulse 88 07/14/25 08:26 Resp 20 07/14/25 08:26 BP 135/90 07/14/25 08:26 Pulse Ox 98 07/14/25 08:26 O2 Del Method Room Air 07/14/25 08:26 Results & Data ([facility]) Current Inpatient Medications Current Inpatient Medications: Current Inpatient Medications Acetaminophen (Acetaminophen 325 Mg Tab) 650 mg PO Q4H PRN PRN Reason: Headache or Minor Fever Stop: 08/02/25 00:53 Al Hydrox/Mg Hydrox/Simethicone (Aluminum/Magnesium Susp 30 Ml Udc) 30 ml PO Q4H PRN PRN Reason: GI Upset Stop: 08/02/25 00:53 Aripiprazole (Aripiprazole 10 Mg Tab) 20 mg PO QAM LINO Stop: 08/09/25 08:59 Last Admin: 07/14/25 08:53 Dose: 20 mg Aripiprazole (Aripiprazole 5 Mg Tab) 20 mg PO QAM LINO Stop: 07/17/25 23:59 Benztropine Mesylate (Benztropine Mesylate 0.5 Mg Tab) 0.5 mg PO BID PRN PRN Reason: EPS Stop: 08/02/25 15:38 Divalproex Sodium (Divalproex Extended Release 500 Mg Tab) 2,000 mg PO HS LINO Stop: 08/13/25 21:59 Last Admin: 07/14/25 20:17 Dose: 2,000 mg Hydroxyzine HCl (Hydroxyzine Hcl 25 Mg Tab) 50 mg PO HSZ PRN PRN Reason: Insomnia Stop: 08/02/25 00:53 Last Admin: 07/10/25 21:02 Dose: 50 mg Hydroxyzine HCl (Hydroxyzine Hcl 25 Mg Tab) 25 mg PO Q4H PRN PRN Reason: Anxiety Stop: 08/02/25 00:53 Lorazepam (Lorazepam 1 Mg Tab) 1 mg PO Q6H PRN PRN Reason: severe anxiety, or agitation Stop: 08/02/25 15:38 Last Admin: 07/12/25 21:15 Dose: 1 mg Lorazepam (Lorazepam 1 Mg Tab) 1 mg PO TID LINO Stop: 08/12/25 11:39 Last Admin: 07/14/25 20:17 Dose: 1 mg Magnesium Hydroxide (Magnesium Hydroxide Susp 30 Ml Udc) 30 ml PO DAILY PRN PRN Reason: Constipation Stop: 08/02/25 00:53 Metformin HCl (Metformin Hcl Er 500 Mg Tabcr) 500 mg PO DAILY@1745 [facility] Stop: 08/04/25 17:44 Last Admin: 07/14/25 17:24 Dose: 500 mg Olanzapine (Olanzapine 20 Mg Tablet) 20 mg PO HS LINO Stop: 08/11/25 21:59 Last Admin: 07/14/25 20:17 Dose: 20 mg Olanzapine (Olanzapine 10 Mg Tab) 10 mg PO HS PRN PRN Reason: sharmila with insomnia and restlessness Stop: 08/12/25 21:59 Last Admin: 07/14/25 01:10 Dose: 10 mg Rosuvastatin Calcium (Rosuvastatin Calcium 5 Mg Tab) 5 mg PO QAM LINO Stop: 08/05/25 08:59 Last Admin: 07/14/25 08:53 Dose: 5 mg Sodium Chloride (Sodium Chloride 0.65% Na Soln 45 Ml ([place])) 1 - 2 sprays NA PRN PRN PRN Reason: Nasal Dryness/Congestion Stop: 08/02/25 00:53 Mental Health & Subst Abuse Tx Therapist Name of Therapist: None current Tariff Compiler Name of Tariff Compiler: None current
[2025-07-15] MEDS: ARIPiprazole 5 MG TAB PO SCH (09:19)
--- NOTE | 2025-07-16 08:59 | Psychiatric Progress Note ---
Date of Service July 16, 2025 Impression / Recommendations Tatianna TEE is a 35-year-old M who currently lives in in an apartment with 1 roommate, has a history of schizophrenia, and was admitted on 07/03/25 00:26 on a 201 voluntary commitment for increased psychosis, and suicidal ideation. A: Patient continues symptomatic, responding to internal stimuli and voicing paranoia at times. He needs encouragement to take his medication. However, he has not been aggressive and has been behaviorally in control. He divya by taking showers, so he is maintaining hygiene. He is eating fairly well. Unlikely that we will be able to keep him here on a 302, so we will finish up discharge planning tomorrow with the whole treatment team present. Unclear where his follow-up will be at this point, and need social work's collaboration. Also awaiting labs in the morning, including a Depakote level. Overall, I spent a total of 30 minutes on this case including meeting with the patient, reviewing the chart, nursing report, multidisciplinary team meeting, orders, and documentation. (1) Schizoaffective disorder: Plan 07/16/25: - Continue current medications and treatment. Labs pending in AM. Likely discharge tomorrow due to 72-hour notice. 07/15/25: - CMP, CBCD, and valproic acid level ordered for Thursday morning. - 72-hour notice signed today by pt 07/14/2025: -Increase Depakote ER to 2000mg HS 07/13/2025: -Start ativan 1mg TID po -Additional olanzapine 10mg HS prn for sharmila with insomnia 07/12/2025: -Discontinue Seroquel as ineffective -Start olanzapine 20mg HS (ongoing poor sleep and history of antipsychotic use including clozapine so starting with high dose given his desire to sleep as quickly as possible due to desire to discharge soon) -Increase Depakote ER to 1500mg HS 07/11/2025: -Discontinue Klonopin and doxepin. -Start Seroquel 300mg HS 07/10/2025: -Start Klonopin 1mg HS 07/09/2025: -Increase abilify to 20mg daily tomorrow 07/08/2025: -discontinue trazodone -Start doxepin 10mg HS 07/07/25: add trazodone nightly scheduled, increase Abilify to 15, and obtain Depakote labs in AM. 07/06/25: continue current meds and treatment 07/05/25: - Increase depakote ER to 1000mg HS - Continue abilify 10mg as planned. - Start metformin and rosuvastatin - he was previously on these, and fasting labs showed both elevated A1C and elevated total cholesterol. 07/04/25: DC Caplyta start Abilify 5 mg continue Depakote at 500 for today 07/03/25: The patient was admitted to the [facility] ([facility] unit) on q15 min checks (behavioral with suicide precautions) for safety. The patient will participate in group, recreational, and milieu therapies and will be offered additional individual and family sessions as clinically appropriate. New medications initiated: Depakote ER 500 mg nightly Vraylar 1.5 mg today, then 3mg daily starting tomorrow Continue the following home medications: none The following PRN medications will be started as well: Vistaril 25 mg as needed anxiety, 50 mg as needed insomnia Cogentin 0.5 mg twice daily as needed EPS Ativan 1 mg every 6 hours as needed severe anxiety or agitation Inventory Assets Strengths: Stable housing, outpatient providers, voluntary/seeking treatment Needs: chronically poor medication adherence, active psychosis, limited social supports Suicide Risk Level Suicide Risk Level: Moderate (q15 min suicide checks) (psychosis and references recent sleep medication use was a suicide attempt however denies current SI and is future oriented but disorganized behaviors, however feels safe in the hospital and feels able to ask staff for support if needed) Suicide Risk Level Comments: Risk Factors Assessment Male: Yes : No Do You Have Access To A Gun?: No Health Problems: No Mental Health Diagnoses: Yes Substance Use Disorders: No Previous Attempt: Yes Family History of Suicide: No Previous Psychiatric Hospitalization: Yes Hopelessness: No Protective Factors Assessment Buddhism Beliefs: Yes : No Responsible for Young Children: No Employed: No Stable Relationships: No Supportive Family: No Interval History Identifying Information LEXII TEE is a 35-year-old M who currently lives in in an apartment with 1 roommate, has a history of schizophrenia, and was admitted on 07/03/25 00:26 on a 201 voluntary commitment for increased psychosis, and suicidal ideation. Chief Complaint "[]". Review of Systems Sleep Information Total Hours of Sleep: 2.25 Meal Information Percent Meal Consumed - Breakfast: 100 Percent Meal Consumed - Lunch: 50 Percent Meal Consumed - Dinner: 100 Subjective Subjective Patient was seen & assessed and interval progress reviewed with nursing and social work per report: paranoid about medication and staff asking to read patient rights papers stated he should have been d/c yesterday did accept meds last night did not attend groups was responding to internal stimuli ambulates around the unit slept 2.25hr refused vitals this AM showered this AM I met with the patient privately in his room. He was tired due to minimal sleep last night. He said he should be allowed to leave today. I explained that we would like to have treatment team meeting and discuss his follow-up options in the morning, and I think labs in the morning. Anticipate discharge later in the afternoon tomorrow. He nodded in agreement, but was distracted. He did not wish to talk further. Physical Exam Psychiatric Orientation: oriented x 3 and + guarded Apperance: appropriately dressed and appropriately groomed Eye Contact: + poor eye contact Motor Behavior: steady gait and station, no abnormal motor movements and + psychomotor agitation Speech: + pressured speech (soft, mumbled); + abnormal rate/rhythm/volume of speech (soft, mumbled) Affect: + blunted affect Thought Process: + thought blocking, + tangential thought process and + concrete thought process Thought Content: + paranoid and + delusions Suicidal Thoughts: denies suicidal thoughts, denies suicidal plan and denies suicidal intent Homicidal Thoughts: denies homicidal thoughts, denies homicidal plan and denies homicidal intent Hallucinations: + auditory hallucinations and + visual hallucinations Cognition: recent memory grossly intact and remote memory grossly intact; + attention not intact Estimated Intelligence: consistent with education level Insight: + limited insight Judgment: + limited judgement Vital Signs (Past 24 Hours) Last Vital Signs Temp 36.8 C 07/14/25 08:26 Pulse 88 07/14/25 08:26 Resp 20 07/14/25 08:26 BP 135/90 07/14/25 08:26 Pulse Ox 98 07/14/25 08:26 O2 Del Method Room Air 07/14/25 08:26 Results & Data ([facility]) Current Inpatient Medications Current Inpatient Medications: Current Inpatient Medications Acetaminophen (Acetaminophen 325 Mg Tab) 650 mg PO Q4H PRN PRN Reason: Headache or Minor Fever Stop: 08/02/25 00:53 Al Hydrox/Mg Hydrox/Simethicone (Aluminum/Magnesium Susp 30 Ml Udc) 30 ml PO Q4H PRN PRN Reason: GI Upset Stop: 08/02/25 00:53 Aripiprazole (Aripiprazole 10 Mg Tab) 20 mg PO QAM LINO Stop: 08/09/25 08:59 Last Admin: 07/14/25 08:53 Dose: 20 mg Aripiprazole (Aripiprazole 5 Mg Tab) 20 mg PO QAM LINO Stop: 07/17/25 23:59 Last Admin: 07/15/25 09:19 Dose: 20 mg Benztropine Mesylate (Benztropine Mesylate 0.5 Mg Tab) 0.5 mg PO BID PRN PRN Reason: EPS Stop: 08/02/25 15:38 Divalproex Sodium (Divalproex Extended Release 500 Mg Tab) 2,000 mg PO HS LINO Stop: 08/13/25 21:59 Last Admin: 07/15/25 20:07 Dose: 2,000 mg Hydroxyzine HCl (Hydroxyzine Hcl 25 Mg Tab) 50 mg PO HSZ PRN PRN Reason: Insomnia Stop: 08/02/25 00:53 Last Admin: 07/10/25 21:02 Dose: 50 mg Hydroxyzine HCl (Hydroxyzine Hcl 25 Mg Tab) 25 mg PO Q4H PRN PRN Reason: Anxiety Stop: 08/02/25 00:53 Lorazepam (Lorazepam 1 Mg Tab) 1 mg PO Q6H PRN PRN Reason: severe anxiety, or agitation Stop: 08/02/25 15:38 Last Admin: 07/12/25 21:15 Dose: 1 mg Lorazepam (Lorazepam 1 Mg Tab) 1 mg PO TID LINO Stop: 08/12/25 11:39 Last Admin: 07/15/25 20:13 Dose: 1 mg Magnesium Hydroxide (Magnesium Hydroxide Susp 30 Ml Udc) 30 ml PO DAILY PRN PRN Reason: Constipation Stop: 08/02/25 00:53 Metformin HCl (Metformin Hcl Er 500 Mg Tabcr) 500 mg PO DAILY@1745 [facility] Stop: 08/04/25 17:44 Last Admin: 07/15/25 17:22 Dose: Not Given Olanzapine (Olanzapine 20 Mg Tablet) 20 mg PO HS LINO Stop: 08/11/25 21:59 Last Admin: 07/15/25 20:19 Dose: 20 mg Olanzapine (Olanzapine 10 Mg Tab) 10 mg PO HS PRN PRN Reason: sharmila with insomnia and restlessness Stop: 08/12/25 21:59 Last Admin: 07/14/25 01:10 Dose: 10 mg Rosuvastatin Calcium (Rosuvastatin Calcium 5 Mg Tab) 5 mg PO QAM LINO Stop: 08/05/25 08:59 Last Admin: 07/15/25 09:19 Dose: 5 mg Sodium Chloride (Sodium Chloride 0.65% Na Soln 45 Ml ([place])) 1 - 2 sprays NA PRN PRN PRN Reason: Nasal Dryness/Congestion Stop: 08/02/25 00:53 Mental Health & Subst Abuse Tx Therapist Name of Therapist: None current Professor In Family Studies Name of Professor In Family Studies: None current
[2025-07-17 08:40] LABS: Hematocrit (blood only) 39.1 % (42.0-52.0); Hemoglobin 13.4 g/dl (14.0-18.0); Immature Granulocytes # (auto) 0.01 K/uL (0.01-0.20); Immature Granulocytes % (auto) 0.1 %; Mean Corpuscular Hemoglobin 30.1 pg (25.0-34.0); Mean Corpuscular Volume 87.9 fL (80.0-100.0); Platelet Count 320 K/uL (130-400); RDW Standard Deviation 44.0 fL (36.4-46.3); Red Blood Count 4.45 M/uL (4.70-6.10); White Blood Count 7.27 K/ul (4.8-10.8)
[2025-07-17 09:00] LABS: Alanine Aminotransferase 29.0 U/L (7-52); Albumin Globulin Ratio 1.2 (0.9-2); Albumin Level 3.9 gm/dl (3.4-5.0); Alkaline Phosphatase 58.0 U/L (34-104); Anion Gap 5.0 (3-11); Bilirubin,Total 0.3 mg/dl (0.2-1.0); Blood Urea Nitrogen 11.0 mg/dl (6-23); Calcium 9.3 mg/dl (8.6-10.3); Carbon Dioxide 32.0 mmol/L (21-32); Chloride 103.0 mmol/L (98-107); Creatinine Clr Calc Pharmacy 131.7 ml/min; Globulin 3.2 gm/dl (2.5-4.0); Glucose 91.0 mg/dl (70-99(Fasting)); Potassium 4.1 mmol/L (3.5-5.1); Sodium 140.0 mmol/L (136-145); Total Protein 7.1 gm/dl (6.0-8.3)
--- NOTE | 2025-07-17 10:25 | Psychiatric Progress Note ---
Date of Service July 17, 2025 Impression / Recommendations Tatianna TEE is a 35-year-old M who currently lives in in an apartment with 1 roommate, has a history of schizophrenia, and was admitted on 07/03/25 00:26 on a 201 voluntary commitment for increased psychosis, and suicidal ideation. A: Very poor sleep continues along with active hallucinations and paranoia. He is eating and maintaining hygiene, accepts medications, but needs encouragement at times to do so. I explained to him that his 72-hour notice is actually up tomorrow morning, given my high level of ongoing concern, I plan to keep him through the end of that 72-hour notice. In the meantime, we could give an long-acting injection form of Abilify, to give him some coverage postdischarge, while he then applies for Medicaid and arranges follow-up after discharge (which is what he is stated he plans to do). We could provide him with potential outpatient provider (possibly [facility]), but could not make appointments for him with no insurance at this point. I encouraged him to consider staying for longer, so we could get his symptoms under better control and to create a better discharge plan for smoother transition to outpatient. He continues to voice desire to leave AMA. He did express frustration because he was I previously told him he could discharge today, and I am changing the plan. I validated his frustration and explained my high level of concern about his ongoing symptoms caused me to change my mind. He did agree to the long-acting injection. Abilify Asimtufii could give coverage for up to [address] Acuna did take care of getting that coordinated with the pharmacy, and we confirmed today that it is here/available. Prescribing instructions indicate patient should be on an antipsychotic for 2 weeks after getting this injection. However, in addition to Abilify he is also going to stay on Zyprexa. I did discontinue the oral Abilify and we plan to give the injection today. Will monitor for the next day. Myself and staff continue encouraged him to stay longer voluntarily, but at this point I do not think we have any 302 criteria. If he remains behaviorally in control and maintaining ADLs, we may need to discharge AMA tomorrow. Overall, I spent a total of 40 minutes on this case including meeting with the patient, reviewing the chart, nursing report, multidisciplinary team meeting, orders, and documentation. (1) Schizoaffective disorder: Plan 07/17/25: - D/c oral abilify and administer Abilify Asimtufii 960mg IM today. - Depakote level 106. Labs WNL. Decrease dose to 1750mg HS. 07/16/25: - Continue current medications and treatment. Labs pending in AM. Likely discharge tomorrow due to 72-hour notice. 07/15/25: - CMP, CBCD, and valproic acid level ordered for Thursday morning. - 72-hour notice signed today by pt 07/14/2025: -Increase Depakote ER to 2000mg HS 07/13/2025: -Start ativan 1mg TID po -Additional olanzapine 10mg HS prn for sharmila with insomnia 07/12/2025: -Discontinue Seroquel as ineffective -Start olanzapine 20mg HS (ongoing poor sleep and history of antipsychotic use including clozapine so starting with high dose given his desire to sleep as quickly as possible due to desire to discharge soon) -Increase Depakote ER to 1500mg HS 07/11/2025: -Discontinue Klonopin and doxepin. -Start Seroquel 300mg HS 07/10/2025: -Start Klonopin 1mg HS 07/09/2025: -Increase abilify to 20mg daily tomorrow 07/08/2025: -discontinue trazodone -Start doxepin 10mg HS 07/07/25: add trazodone nightly scheduled, increase Abilify to 15, and obtain Depakote labs in AM. 07/06/25: continue current meds and treatment 07/05/25: - Increase depakote ER to 1000mg HS - Continue abilify 10mg as planned. - Start metformin and rosuvastatin - he was previously on these, and fasting labs showed both elevated A1C and elevated total cholesterol. 07/04/25: DC Caplyta start Abilify 5 mg continue Depakote at 500 for today 07/03/25: The patient was admitted to the [facility] ([facility]) on q15 min checks (behavioral with suicide precautions) for safety. The patient will participate in group, recreational, and milieu therapies and will be offered additional individual and family sessions as clinically appropriate. New medications initiated: Depakote ER 500 mg nightly Vraylar 1.5 mg today, then 3mg daily starting tomorrow Continue the following home medications: none The following PRN medications will be started as well: Vistaril 25 mg as needed anxiety, 50 mg as needed insomnia Cogentin 0.5 mg twice daily as needed EPS Ativan 1 mg every 6 hours as needed severe anxiety or agitation Inventory Assets Strengths: Stable housing, outpatient providers, voluntary/seeking treatment Needs: chronically poor medication adherence, active psychosis, limited social supports Suicide Risk Level Suicide Risk Level: Moderate (q15 min suicide checks) (psychosis and references recent sleep medication use was a suicide attempt however denies current SI and is future oriented but disorganized behaviors, however feels safe in the hospital and feels able to ask staff for support if needed) Suicide Risk Level Comments: Risk Factors Assessment Male: Yes : No Do You Have Access To A Gun?: No Health Problems: No Mental Health Diagnoses: Yes Substance Use Disorders: No Previous Attempt: Yes Family History of Suicide: No Previous Psychiatric Hospitalization: Yes Hopelessness: No Protective Factors Assessment Yarsani Beliefs: Yes : No Responsible for Young Children: No Employed: No Stable Relationships: No Supportive Family: No Interval History Identifying Information LEXII TEE is a 35-year-old M who currently lives in in an apartment with 1 roommate, has a history of schizophrenia, and was admitted on 07/03/25 00:26 on a 201 voluntary commitment for increased psychosis, and suicidal ideation. Chief Complaint "[]". Review of Systems Sleep Information Total Hours of Sleep: 2.5 Meal Information Percent Meal Consumed - Breakfast: 100 Percent Meal Consumed - Lunch: 100 Percent Meal Consumed - Dinner: 90 Subjective Subjective Patient was seen & assessed and interval progress reviewed with treatment team. Per report: patient slept only 2-1/2 hours. He showered at least twice yesterday. He has now not been tolerating groups. Remains paranoid and guarded. frequently pacing and responding to internal stimuli. He has been overall med adherent. They discussed possibility of an injection with him this morning, and he did decline that. Discussed in treatment team but that there is really no possibility of outpatient follow-up for the patient, since he is without insurance and declining offers to assist in getting him on Medicaid. He tends to state that he will take care of that after discharge. However, no referrals can be made as a result. Also, he has previously been at multiple locations in the area, including the [place] [facility], and subsequently discharged due to symptoms and complexity. I met with the patient privately in his room. He continues to say he is sleeping well. He denies paranoia and says "I am just praying for myself." I expressed mind and the team's ongoing concern that he is not at his baseline. I recommended a longer stay, and further explained that having long-acting injection form of medication would be beneficial to him, since there is difficulty getting him follow-up. He did agree to the injection, but expressed frustration that he would be here another day. He asked to speak to someone higher up, and I did ask the transportation department head to stop by. He maintained safe behavior despite expressing frustration. I later visualized him pacing in the hallway, gesticulating and talking to himself. Physical Exam Psychiatric Orientation: alert, oriented x 3 and + guarded Apperance: appropriately dressed, appropriately groomed and appeared stated age Eye Contact: + poor eye contact Motor Behavior: steady gait and station and no abnormal motor movements Speech: + abnormal rate/rhythm/volume of speech (soft, mumbled) Affect: + blunted affect and + irritable affect; no depressed affect and no anxious affect Mood: + irritable mood; no depressed mood and no anxious mood Thought Process: goal directed thought process and + thought blocking Thought Content: + paranoid and + delusions Suicidal Thoughts: denies suicidal thoughts, denies suicidal plan and denies suicidal intent Homicidal Thoughts: denies homicidal thoughts, denies homicidal plan and denies homicidal intent Hallucinations: + auditory hallucinations Cognition: recent memory grossly intact and remote memory grossly intact; + attention not intact Estimated Intelligence: consistent with education level Insight: + limited insight Judgment: + limited judgement Vital Signs (Past 24 Hours) Last Vital Signs Temp 36.8 C 07/14/25 08:26 Pulse 88 07/14/25 08:26 Resp 20 07/14/25 08:26 BP 135/90 07/14/25 08:26 Pulse Ox 98 07/14/25 08:26 O2 Del Method Room Air 07/14/25 08:26 Results & Data ([facility]) Laboratory Results Laboratory Results - last 24 hr 07/17/25 08:10 WBC 7.27 RBC 4.45 L Hgb 13.4 L Hct 39.1 L MCV 87.9 MCH 30.1 MCHC 34.3 RDW Std Deviation 44.0 RDW Coeff of Tawanna 13.7 Plt Count 320 MPV 10.7 Immature Gran % (Auto) 0.1 Neut % (Auto) 44.7 Lymph % (Auto) 43.7 Dixie % (Auto) 7.6 Eos % (Auto) 2.9 Baso % (Auto) 1.0 Neut # (Auto) 3.25 Lymph # (Auto) 3.18 Dixie # (Auto) 0.55 Eos # (Auto) 0.21 Baso # (Auto) 0.07 Immature Gran # (Auto) 0.01 Sodium 140 Potassium 4.1 Chloride 103 Carbon Dioxide 32 Anion Gap 5 BUN 11 Creatinine 1.09 Est Cr Clr Drug Dosing 131.7 eGFR 91.90 BUN/Creatinine Ratio 10.1 Glucose 91 Calcium 9.3 Total Bilirubin 0.3 AST 32 ALT 29 Alkaline Phosphatase 58 Total Protein 7.1 Albumin 3.9 Globulin 3.2 Albumin/Globulin Ratio 1.2 Valproic Acid 106 H Current Inpatient Medications Current Inpatient Medications: Current Inpatient Medications Acetaminophen (Acetaminophen 325 Mg Tab) 650 mg PO Q4H PRN PRN Reason: Headache or Minor Fever Stop: 08/02/25 00:53 Al Hydrox/Mg Hydrox/Simethicone (Aluminum/Magnesium Susp 30 Ml Udc) 30 ml PO Q4H PRN PRN Reason: GI Upset Stop: 08/02/25 00:53 Benztropine Mesylate (Benztropine Mesylate 0.5 Mg Tab) 0.5 mg PO BID PRN PRN Reason: EPS Stop: 08/02/25 15:38 Divalproex Sodium (Divalproex Extended Release 500 Mg Tab) 2,000 mg PO HS LINO Stop: 08/13/25 21:59 Last Admin: 07/16/25 20:21 Dose: 2,000 mg Hydroxyzine HCl (Hydroxyzine Hcl 25 Mg Tab) 50 mg PO HSZ PRN PRN Reason: Insomnia Stop: 08/02/25 00:53 Last Admin: 07/10/25 21:02 Dose: 50 mg Hydroxyzine HCl (Hydroxyzine Hcl 25 Mg Tab) 25 mg PO Q4H PRN PRN Reason: Anxiety Stop: 08/02/25 00:53 Lorazepam (Lorazepam 1 Mg Tab) 1 mg PO Q6H PRN PRN Reason: severe anxiety, or agitation Stop: 08/02/25 15:38 Last Admin: 07/12/25 21:15 Dose: 1 mg Lorazepam (Lorazepam 1 Mg Tab) 1 mg PO TID LINO Stop: 08/12/25 11:39 Last Admin: 07/17/25 07:53 Dose: 1 mg Magnesium Hydroxide (Magnesium Hydroxide Susp 30 Ml Udc) 30 ml PO DAILY PRN PRN Reason: Constipation Stop: 08/02/25 00:53 Metformin HCl (Metformin Hcl Er 500 Mg Tabcr) 500 mg PO DAILY@1745 LINO Stop: 08/04/25 17:44 Last Admin: 07/16/25 17:07 Dose: 500 mg Non-Formulary Medication (Abilify Asimtufii) 960 mg IM Q60D LINO Stop: 08/16/25 10:14 Olanzapine (Olanzapine 20 Mg Tablet) 20 mg PO HS LINO Stop: 08/11/25 21:59 Last Admin: 07/16/25 20:21 Dose: 20 mg Olanzapine (Olanzapine 10 Mg Tab) 10 mg PO HS PRN PRN Reason: sharmila with insomnia and restlessness Stop: 08/12/25 21:59 Last Admin: 07/14/25 01:10 Dose: 10 mg Rosuvastatin Calcium (Rosuvastatin Calcium 5 Mg Tab) 5 mg PO QAM LINO Stop: 08/05/25 08:59 Last Admin: 07/17/25 07:51 Dose: 5 mg Sodium Chloride (Sodium Chloride 0.65% Na Soln 45 Ml ([place])) 1 - 2 sprays NA PRN PRN PRN Reason: Nasal Dryness/Congestion Stop: 08/02/25 00:53 Mental Health & Subst Abuse Tx Therapist Name of Therapist: None current Pie Chef Name of Pie Chef: None current
[2025-07-17] MEDS: ARIPIPRAZOLE 960 MG/3.2 ML IM SCH (12:23)
[2025-07-17] MEDS: DIVALPROEX EXTENDED RELEASE 250 MG TABCR PO SCH (20:39)
[2025-07-18 08:30] VITALS: BP 141/100
--- NOTE | 2025-07-18 18:44 | Discharge Summary ---
Date of Service July 18, 2025 History of Present Illness Patient is well-known to the unit from multiple past admissions. He presented to the emergency room via police, who picked him up at his apartment after an incident that occurred on 07/02 at a local coffee shop. Patient explains that he saw a woman on 07/01 and that is that has had she wanted to and have sex with a black man, and then believes he saw the same woman again when he was at [facility] on 07/02. He poured water on that woman woman's had to stop her from having such thoughts. He went back to his apartment, but says someone called the police. They picked him up and brought him to the emergency room. Once in the emergency room, patient also stated he has been having suicidal thoughts. He stated he tried to kill himself by taking extra doses of Caplyta. He appears have only take 1 or 2 extra pills in the past few days. He did sign himself in on a 201. Since his arrival to the unit, he has maintained safe behavior, but appears disorganized and actively responding to internal stimuli. I met with the patient privately in his room. His speech was notably fast, and he had a stammer that made it difficult to understand what he was saying at times. He did say he has been taking his medication regularly, "but because I could not sleep it stopped working properly." He said he last slept well about a month ago. His recollection of symptoms and events over the last month was difficult to follow. He had some loosening of associations and even word salad at times. At 1 point he said he drank alcohol, but was not drunk. He repeated multiple times that he was taking his medication. He gave his recounting of the his beliefs about the woman and [facility] several times. He said she wanted to be with a black man, but she was white and he thought that was wrong, which is why he poured the water on her. Physical Exam Psychiatric Orientation: alert, oriented x 3 and + guarded Apperance: appropriately dressed and appropriately groomed Eye Contact: + fair eye contact Motor Behavior: steady gait and station and no abnormal motor movements; n EPS Speech: + abnormal rate/rhythm/volume of speech (soft, mumbled) Affect: + blunted affect; no anxious affect Mood: no depressed mood and no anxious mood Thought Process: goal directed thought process and + thought blocking Thought Content: + paranoid and + delusions Suicidal Thoughts: denies suicidal thoughts, denies suicidal plan and denies suicidal intent Homicidal Thoughts: denies homicidal thoughts, denies homicidal plan and denies homicidal intent Hallucinations: + auditory hallucinations and + visual hallucinations Cognition: recent memory grossly intact and remote memory grossly intact; + attention not intact Insight: + fair insight Judgment: + fair judgement Vital Signs (Past 24 Hours) Last Vital Signs Temp 36.8 C 07/18/25 08:24 Pulse 88 07/18/25 08:24 Resp 20 07/18/25 08:24 BP 141/100 H 07/18/25 08:24 Pulse Ox 98 07/18/25 08:24 O2 Del Method Room Air 07/14/25 08:26 A physical exam was performed in the ED by Dr Jesus Starks for the purposes of medical clearance. I accept that physical as correct and adequate for the purposes of the inpatient physical exam. Principal Diagnosis Schizoaffective disorder, bipolar type Psychiatric Data See daily stay summary. In short, safety was maintained. Medication changes included initiation of Depakote and Abilify and they tolerated this well without adverse effects. Zyprexa and scheduled Ativan was later added for ongoing manic symptoms, and dose of Depakote was titrated. Patient continued to have paranoia and active psychosis. He did sign a 72-hour notice. Staff made extensive attempts to engage the patient in treatment. Despite our best efforts, he did continue to request AMA discharge. While on the unit, he did maintain ADLs, such as showering and eating. He attended some programming, but could not meaningfully participate due to active responding to internal stimuli. He did maintain safe behaviors despite frustration and paranoia. No significant agitation or acting out occurred. He at times needed encouragement to take his meds, but usually did take them. The day before discharge, he did except the Abilify Asimtufii injection, and tolerated it well. Sleep was poor for most of his day, but did improve the night before discharge. He continued to deny suicidal ideation and homicidal ideation. He made no threats to harm anyone. He said he was requesting discharge because he did not trust her treatment, and because he was worried about his rent being late. A family session was declined and safety plan was completed prior to discharge. Day of Discharge Assessment Today, patient continues to request AMA discharge. His 72-hour notice does today, and then although he is presently symptomatic, he is behaving appropriately and maintaining ADLs. He denies SI and HI. Although I continue to encourage him to stay for longer treatment, so we can adjust his medications and stabilize his psychosis, he declines this offer. There is no 302 criteria currently, and so we are going to discharge AMA. He does not presently have outpatient follow-up, as he has declined to apply for medical assistance while here, and so referrals cannot be made. He was provided with a resource guide, and plans to contact [facility] once he applies for medical assistance outside the hospital. He was made aware of the steps to do so. Scripts were sent to his local pharmacy. Transition of Care Transition Of Care Record: was reviewed with the patient Advance Directives Advance Directives Information Provided: Yes Advance Directives: No Mental Health Advance Directive: No Advance Directives on File: No Living Will: No Power of Wrapper Stemmer Hand: No Advance Directives Reason:: Declines as Mental Health Visit. Suicide Risk Level Suicide Risk Level Comments: Risk Factors Assessment Male: Yes : No Do You Have Access To A Gun?: No Health Problems: No Mental Health Diagnoses: Yes Substance Use Disorders: No Previous Attempt: Yes Family History of Suicide: No Previous Psychiatric Hospitalization: Yes Hopelessness: No Protective Factors Assessment Catholic Beliefs: Yes : No Responsible for Young Children: No Employed: No Stable Relationships: No Supportive Family: No Good Rapport with Provider: No Antipsychotic Medications Patient is on 2 antipsychotics, long-acting injection and an oral formulation, due to treatment resistant psychotic symptoms. This could be reevaluated in the outpatient setting, and Zyprexa could be tapered if the Abilify Asimtufii is indeed enough to stabilize him over time. Since he is leaving AMA, we did not have enough time to assess that here. Total Time Total Time Spent: Greater Than 30 Minutes Total Time Includes: Examination of the patient, Discharge Planning, Medication Reconciliation and As well as ( Documentation) Discharge Data Lab Results 07/02/25 07/02/25 07/04/25 19:16 19:24 07:29 WBC 7.27 RBC 4.87 Hgb 14.0 Hct 42.0 MCV 86.2 MCH 28.7 MCHC 33.3 RDW Std Deviation 44.5 RDW Coeff of Tawanna 14.2 Plt Count 336 MPV 10.2 Immature Gran % (Auto) 0.1 Neut % (Auto) 51.5 Lymph % (Auto) 35.5 [place] % (Auto) 7.8 Eos % (Auto) 3.9 Baso % (Auto) 1.2 Neut # (Auto) 3.74 Lymph # (Auto) 2.58 [place] # (Auto) 0.57 Eos # (Auto) 0.28 Baso # (Auto) 0.09 Immature Gran # (Auto) 0.01 Sodium 136 Potassium 4.0 Chloride 105 Carbon Dioxide 24 Anion Gap 7 BUN 13 Creatinine 0.95 Est Cr Clr Drug Dosing 151.1 eGFR 108.39 BUN/Creatinine Ratio 13.7 Glucose 99 Estimat Average Glucose 140 Hemoglobin A1c 6.5 H Calcium 9.4 Total Bilirubin 0.4 AST 38 ALT 38 Alkaline Phosphatase 70 Ammonia Total Protein 7.7 Albumin 4.2 Globulin 3.5 Albumin/Globulin Ratio 1.2 Triglycerides 99 Cholesterol 263 H LDL Cholesterol, Calc 193 VLDL Cholesterol, Calc 20 HDL Cholesterol 50 Cholesterol/HDL Ratio 5.3 H TSH 1.567 Urine Color Yellow Urine Appearance Clear Urine pH 6.5 Ur Specific [place] 1.012 Urine Protein 1+ H Urine Glucose (UA) Negative Urine Ketones Negative Urine Blood Negative Urine Nitrite Negative Urine Bilirubin Negative Urine Urobilinogen Negative Ur Leukocyte Esterase Negative Urine WBC (Auto) 0-5 Urine RBC (Auto) 0-2 U Hyaline Cast (Auto) 0-2 U Epithel Cells (Auto) 0-2 Urine Bacteria (Auto) None Seen Urine Comment Salicylates < 3.0 L Urine Opiates Screen Neg Ur Methadone, Qual Neg Urine Fentanyl Screen Neg Acetaminophen < 3 L Urine Barbiturates Neg Valproic Acid Ur Phencyclidine (PCP) Neg U Amphetamin/Meth Scrn Neg MDMA (Ecstasy) Screen Neg U Benzodiazepines Scrn Neg Ur Cocaine Metabolite Neg U Marijuana (THC) Screen Neg Ethyl Alcohol mg/dL < 10.0 SARS-CoV-2, RNA, NAAT NEGATIVE 07/04/25 07/08/25 07/17/25 07:30 07:20 08:10 WBC 7.27 RBC 4.45 L Hgb 13.4 L Hct 39.1 L MCV 87.9 MCH 30.1 MCHC 34.3 RDW Std Deviation 44.0 RDW Coeff of Tawanna 13.7 Plt Count 320 MPV 10.7 Immature Gran % (Auto) 0.1 Neut % (Auto) 44.7 Lymph % (Auto) 43.7 [place] % (Auto) 7.6 Eos % (Auto) 2.9 Baso % (Auto) 1.0 Neut # (Auto) 3.25 Lymph # (Auto) 3.18 [place] # (Auto) 0.55 Eos # (Auto) 0.21 Baso # (Auto) 0.07 Immature Gran # (Auto) 0.01 Sodium 137 140 Potassium 4.1 4.1 Chloride 101 103 Carbon Dioxide 31 32 Anion Gap 5 5 BUN 15 11 Creatinine 0.98 1.09 Est Cr Clr Drug Dosing 146.4 131.7 eGFR 104.42 91.90 BUN/Creatinine Ratio 15.3 10.1 Glucose 89 91 Estimat Average Glucose Hemoglobin A1c Calcium 9.4 9.3 Total Bilirubin 0.4 0.3 AST 36 32 ALT 29 29 Alkaline Phosphatase 58 58 Ammonia 30.0 Total Protein 7.4 7.1 Albumin 3.7 3.9 Globulin 3.7 3.2 Albumin/Globulin Ratio 1.0 1.2 Triglycerides Cholesterol LDL Cholesterol, Calc VLDL Cholesterol, Calc HDL Cholesterol Cholesterol/HDL Ratio TSH Urine Color Urine Appearance Urine pH Ur Specific [place] Urine Protein Urine Glucose (UA) Urine Ketones Urine Blood Urine Nitrite Urine Bilirubin Urine Urobilinogen Ur Leukocyte Esterase Urine WBC (Auto) Urine RBC (Auto) U Hyaline Cast (Auto) U Epithel Cells (Auto) Urine Bacteria (Auto) Urine Comment Salicylates Urine Opiates Screen Ur Methadone, Qual Urine Fentanyl Screen Acetaminophen Urine Barbiturates Valproic Acid 74 106 H Ur Phencyclidine (PCP) U Amphetamin/Meth Scrn MDMA (Ecstasy) Screen U Benzodiazepines Scrn Ur Cocaine Metabolite U Marijuana (THC) Screen Ethyl Alcohol mg/dL SARS-CoV-2, RNA, NAAT Hospital Course (1) Schizoaffective disorder: Plan 07/18/25: -d/c today. Scripts sent to his local pharmacy -Pt aware he needs to complete MA paperwork, then call [facility] to set up outpatient f/u. 07/17/25: - D/c oral abilify and administer Abilify Asimtufii 960mg IM today. - Depakote level 106. Labs WNL. Decrease dose to 1750mg HS. 07/16/25: - Continue current medications and treatment. Labs pending in AM. Likely discharge tomorrow due to 72-hour notice. 07/15/25: - CMP, CBCD, and valproic acid level ordered for Thursday morning. - 72-hour notice signed today by pt 07/14/2025: -Increase Depakote ER to 2000mg HS 07/13/2025: -Start ativan 1mg TID po -Additional olanzapine 10mg HS prn for sharmila with insomnia 07/12/2025: -Discontinue Seroquel as ineffective -Start olanzapine 20mg HS (ongoing poor sleep and history of antipsychotic use including clozapine so starting with high dose given his desire to sleep as quickly as possible due to desire to discharge soon) -Increase Depakote ER to 1500mg HS 07/11/2025: -Discontinue Klonopin and doxepin. -Start Seroquel 300mg HS 07/10/2025: -Start Klonopin 1mg HS 07/09/2025: -Increase abilify to 20mg daily tomorrow 07/08/2025: -discontinue trazodone -Start doxepin 10mg HS 07/07/25: add trazodone nightly scheduled, increase Abilify to 15, and obtain Depakote labs in AM. 07/06/25: continue current meds and treatment 07/05/25: - Increase depakote ER to 1000mg HS - Continue abilify 10mg as planned. - Start metformin and rosuvastatin - he was previously on these, and fasting labs showed both elevated A1C and elevated total cholesterol. 07/04/25: DC Caplyta start Abilify 5 mg continue Depakote at 500 for today 07/03/25: The patient was admitted to the [facility] ([facility] inpatient mental health unit) on q15 min checks (behavioral with suicide precautions) for safety. The patient will participate in group, recreational, and milieu therapies and will be offered additional individual and family sessions as clinically appropriate. New medications initiated: Depakote ER 500 mg nightly Vraylar 1.5 mg today, then 3mg daily starting tomorrow Continue the following home medications: none The following PRN medications will be started as well: Vistaril 25 mg as needed anxiety, 50 mg as needed insomnia Cogentin 0.5 mg twice daily as needed EPS Ativan 1 mg every 6 hours as needed severe anxiety or agitation Mental Health & Subst Abuse Tx Psychiatrist Name of Psychiatrist: [address], [place] [address] Psychiatrist's Psychiatric Appointment Comment: After you apply for medicaid, call to schedule appt for med managment Therapist Name of Therapist: None current Journalists And Other Writers Name of Journalists And Other Writers: Not eligible for case management Post Discharge Appointments Other #1: Name of Aftercare Appointment: [facility] office - [address], [place], [place] Phone Number of Aftercare Appointment: Aftercare Appointment Comment: Go in person to apply for medicaid (after you receive asylee paperwork) Contact Information Discharge Discharge Address: [address] [address] Discharge Plan Discharge Items Patient Disposition: Against Medical Advice Reason For Visit: SCHIZOPHRENIA Condition on Discharge: Fair Activity: Resume your previous activity Non-emergency contact: Primary Care Provider Follow-up/Referrals: PCP,VERN [Primary Care Provider] - Addtl Contact And Service Clerks Supervisor Provider Instructions: *We recommended you stay for longer treatment, to achieve better stabilization of symptoms. You have chosen to leave against medical advice. I do still recommend you continue on prescribed medication, and follow up with outpatient treatment. *You were given a list of resources to pursue for outpatient treatment *Prescriptions were sent to [facility] ([facility]) SPECIAL CARE INSTRUCTIONS: 1. Follow through with your scheduled aftercare appointments. If unable to keep an appointment, please call to reschedule. 2. Take your medication only as prescribed. Medication should not be changed or stopped without the approval of your doctor. In the event of worsening symptoms or concerns about side effects, contact your doctor immediately. 3. Utilize new healthy coping skills, anger management skills, and stress management skills learned during your hospitalization. Journal feelings and process them with a support person. Identify stressors or situations that may result in relapse, deterioration or inappropriate behaviors and develop a plan to deal with those issues. 4. If your coping skills are ineffective and you are in crisis, contact your outpatient providers for direction. If unable to reach your providers, please call the [facility] CRISIS LINE AT , go to the [facility] walk-in center at [address], [address], [place], or go to the closest Emergency Room. 5. Avoid alcohol and un-prescribed drugs. 6. You have been provided with the Mental Health Advance Directives Pamphlet for your review. 7. Your condition is stable for discharge to outpatient level of care, but recovery is an ongoing process. Ifthoughts to harm yourself or others return, follow the safety plan developed during your stay. Planning for a safe return home includes securing weapons. Our treatment team recommends weaponsbe removed from the home until your outpatient provider reassesses your progress. In rare cases where the items themselvescannot be removed, guns and ammunitionshould be secured separatelyand keys stored by a reliable personoutside of the home. If you were admitted on an involuntary commitment, the police or other legal authorities may be involved in this process. AFTERCARE APPOINTMENTS: * Please call your insurance company prior to your scheduled appointment to confirm your aftercare providers are covered. Take your insurance information to your appointments. WHO TO CALL AND WHEN: Medical Emergencies: For questions or emergencies related to your hospital stay, please contact the Inpatient Behavioral Health Unit at [phone]. A independent crop consultant is on-call 06/04 for the Behavioral Health Unit for emergencies At any time you feel your situation is an emergency, you may also call 911 immediately. Pending Studies at Discharge: No Stand-Alone Forms: My [facility] DocDep, Smoking Cessation Medications and DC Order Prescriptions: New lorazepam 1 mg Tablet See Rx Instructions .ROUTE .COMPLEX Qty: 46 0RF Rx Instructions: 1 mg orally 3 times a day for 1 week, then 1mg 2 times a day for 1 week, then 1mg daily for one week, then 0.5mg (half tab) daily x 1 week, then stop. divalproex 250 mg Tablet Extended Release 24 Hr 250 mg PO HS 30 Days Qty: 30 0RF Abilify Asimtufii 960 mg/3.2 mL Suspension,Extended Rel Syring 960 mg IM Q60D Qty: 3.2 0RF olanzapine 20 mg Tablet 20 mg PO HS 30 Days Qty: 30 0RF divalproex 500 mg tablet extended release 24 hr 1,500 mg PO DAILY 30 Days Qty: 90 0RF Rx Instructions: (take along with one 250mg cap for total of 1750mg daily) metformin 500 mg Tablet Extended Release 24 Hr 500 mg PO DAILY@1745 30 Days Qty: 30 0RF Continued rosuvastatin [Crestor] 5 mg Tablet 5 mg PO DAILY 30 Days Qty: 30 0RF Discontinued Caplyta tablet 42 mg PO HS Discharge Orders: Left Against Medical Advice (Routine); Ordered 07/18/25 Ordered By: Mary Tovar/Other Patient Handouts: Prediabetes, 5 Steps for Eating Healthier Admission Data Admit Date/Time: 07/03/25 00:26 Attending Provider: Lilo Acuna Admit Provider: Mary Connell Primary Care Provider: PCPVERN Coding Level of Care Code 53302 D/C day mgmt > 30 min Diagnoses Schizoaffective disorder F25.9
== END 2025-07-18 09:35 | disposition left against medical advice (07) | DRG 885 ==
LOC: EDSEX → ED 19:01 → SUATTDRO 07-03 00:26 → 3S 07-03 00:26 → ED 07-03 00:37
DX: F25.9 Schizoaffective disorder, unspecified; Z88.6 Allergy status to analgesic agent; R45.851 Suicidal ideations